=== PATIENT | female | born 1935 | race Caucasian/White ===

== ENCOUNTER → 2017-08-20 | Outpatient (CLI) | payer MEDICARE, OTHER ==
[2016-05-23 14:32] VITALS: BP 97/51
[~2017-08-20] MED LIST: ACET325T9 PO; BIMA2.5D EACHEYE; FAMO-63 PO; HALO0.5T PO; HYDR-2762 PO; LATA2.5D2 EACHEYE; LEVO150T5 PO; LEVO50TA5 PO; LMFO1TAB PO; LORA0.5T96 PO; MAGN400T3 PO; MELA3TAB2 PO; MENT3.5O TP; POTA20TA84 PO; SULF1TAB24 PO; TRAM50TA PO
--- NOTE | 2017-08-21 16:18 | RAD ---
FDG tumor localization scan, PET/CT, 08/20/2017: History: Colon cancer staging Following IV injection of 14.0 mCi of 18 F-FDG, imaging was performed from the skull base through the proximal thighs. The noncontrast CT component was performed for attenuation correction and anatomic localization purposes rather than for primary diagnosis. The patient's blood glucose level at the time of injection was 97 MG/DL. Comparison is made to a study from 01/05/2014. Physiologic activity is present in the neck. Mildly increased activity along the posterior aspect of the right glenohumeral joint is arthritic. There is an 11 mm hypermetabolic nodule in the posterior aspect of the left lower lobe. It demonstrates a maximum SUV of 3.2. Just superior to this level in the left lower lobe there is a 7 mm nodule demonstrating low level FDG uptake. The lack of avid uptake is probably secondary to its small size. These pulmonary nodules were not present on the previous study of 01/05/2014. There is a new 15 mm hypermetabolic nodule in the epicardial fat along the right side of the heart. It demonstrates a maximum SUV of 4.7. There are 2 hypermetabolic liver lesions. The largest of these lies centrally in the left lobe and demonstrates a maximum SUV of 9.3. The smaller lesion lies in the dome of the right lobe of the liver. Both lesions demonstrate some internal calcification which can be seen with mucinous tumors. These lesions were present on the 01/05/2014 study but have increased in size. Normal GI tract and urinary tract activity is present in the abdomen and pelvis. No hypermetabolic abdominal or pelvic adenopathy is seen. Incidental CT findings and the presence of scattered colonic diverticula. There is a small medium density right renal nodule which may be a complicated cyst. There is a moderate-sized hiatal hernia. Moderate multilevel degenerative changes are present in the spine. IMPRESSION: 1. Two new hypermetabolic pulmonary nodules and a right epicardial nodule are compatible with metastatic disease. 2. Enlarging hypermetabolic liver lesions compatible with progressing metastatic disease.
== END | disposition home or self-care (01) ==
LOC: PETSC 10:30
PROVIDERS: ATTEND Internal Medicine Medical Oncology
DX: C78.01 Secondary malignant neoplasm of right lung (principal); K57.30 Diverticulosis of large intestine without perforation or abscess without bleeding; K44.9 Diaphragmatic hernia without obstruction or gangrene; Z85.118 Personal history of other malignant neoplasm of bronchus and lung
CPT/HCPCS: 78815; A9552

== ENCOUNTER 2019-04-20 08:37 | Day surgery (SDC) | payer MEDICARE, OTHER ==
[~2019-04-20] VITALS: Ht 162.6 cm; Wt 51.0 kg
[~2019-04-20 08:37] MED LIST changes: +ACET325T21 PO; +BUPIVAC MPF-EPI 0.5%-1:200000 30 ML VIAL. ONE; +BUPIVACAINE MPF 0.5% 30 ML VIAL. ONE; +BUSP5TAB PO; +CAPE500T PO; +DONE10TA7 PO; +HEPARIN SODIUM 5,000 UNIT in IV NORMAL SALINE 500ML BAG 500 ML IRR ONE; -HYDR-2762 PO; +HYDR-2765 PO; +HYDROmorphone 2 MG/ML VIAL IV PRN; +IV RINGERS,LACTATED 1000ML 1,000 ML IV SCH; +LOPE1LIQ7 PO; +MEMA10TA PO; +MORPHINE SULFATE 2 MG/ML VIAL. IV PRN; +OMEP20TA8 PO; +ONDA4TAB7 PO; +PROCHLORPERAZINE 10 MG/2 ML VIAL. IV PRN; +fentaNYL PF VIAL 100 MCG/2 ML VIAL IV PRN
--- NOTE | 2019-04-20 11:06 | RAD ---
Portable chest, 04/20/2019: HISTORY: Port-A-Cath placement A left Port-A-Cath is in place extending into the superior vena cava. The heart size is normal. There is minimal linear scarring or atelectasis in the left lateral costophrenic angle. No pulmonary consolidation is seen. There is no evidence of pneumothorax or pleural fluid. There is a mild thoracolumbar scoliosis with scattered degenerative changes. There is an old healed right clavicular fracture. IMPRESSION: 1. A left Port-A-Cath extends into the superior vena cava. 2. No significant acute abnormality is detected. Electronically signed by: Robert Marx MD (04/20/2019 11:03 AM) [facility]
[2019-04-20 11:10] VITALS: BP 170/91
--- NOTE | 2019-04-20 11:30 | DISCH ---
DISCHARGE INSTRUCTIONS Condition on Discharge Condition on Discharge: Stable Activity After Discharge Activity Instructions for Disc: Activity as tolerated, Avoid exertion, Other, see below Lifting Instructions after Dis: Do not lift >10 pounds Exercise Instruction after Dis: Progress as tolerated Driving Instructions after Dis: Do not drive Weight Bearing Status after Di: Non weight bearing Diet after Discharge Diet after Discharge: Regular Wound Incision Care Wound/Incision Care: Ice to area for comfort, Do not change dressing Other wound/incision instructi: leave dressing on til chemo Follow-Up Follow up with: Darius 04/28 in the [facility] office HUSSEIN WEINER MD Apr 20, 2019 11:30
--- NOTE | 2019-04-20 11:35 | PDOC ---
BRIEF OPERATIVE NOTE Date: Apr 20, 2019 Pre-Op Diagnosis needs venous access for chemo Post-Op Diagnosis same Procedure Performed placement left subclavian power port Surgeon Darius Anesthesia Type: General Blood Loss 5cc IV Fluid 500cc Specimens Obtained none Findings tip of catheter in the SVC without evidence of a pneumothorax Complications none Operative Note Wk # [id number] HUSSEIN WEINER MD Apr 20, 2019 11:35
--- NOTE | 2019-04-20 11:46 | OP ---
DATE OF SURGERY: 04/20/2019 PREOPERATIVE DIAGNOSIS: Needs venous access for chemotherapy. POSTOPERATIVE DIAGNOSIS: Needs venous access for chemotherapy. PROCEDURE: Placement of left subclavian PowerPort. SURGEON: Hussein Weiner MD. ANESTHESIA: General LMA. ESTIMATED BLOOD LOSS: 5 mL. INTRAVENOUS FLUIDS: 500 mL. DESCRIPTION OF PROCEDURE: The patient brought to the operating suite, given a general LMA and the infraclavicular areas were prepped and draped in usual sterile fashion. With the bed in Trendelenburg, 0.5% plain Marcaine was infiltrated a fingerbreadth below the clavicle at the junction of the medial two-thirds lateral third. A small incision made and a seeker needle used to find the subclavian vein. Guidewire passed under fluoroscopic observation in the superior vena cava and the needle was removed. Table returned to level. Pocket incision infiltrated with local anesthetic, incised and a pocket developed. Catheter laid on the patient's chest and fluoroscopy used to identify appropriate length. The catheter was cut to the appropriate length and tunneled from the insertion site to the pocket site where it was attached to the reservoir. The reservoir was seated in the pocket and the bed placed back in Trendelenburg. Under fluoroscopic observation, the dilator and sheath were passed over the wire. The wire was removed. The dilator was removed and the catheter was threaded through the sheath and the sheath was then removed. Good flow into and out of the catheter at completion of placement. Pocket incision closed with interrupted 3-0 Vicryl in the subcutaneous tissue. Skin incisions closed with subcuticular 4-0 Monocryl. Steri-Strips applied. A final aspiration flush of the port was carried out with heparinized saline. Sterile dressing applied. The patient awakened from her anesthetic. Postop upright chest x-ray showed the tip of the catheter to reside in superior vena cava without evidence of a pneumothorax. The patient was taken to postop area having tolerated the procedure well. HUSSEIN WEINER MD DR: JULIO CESAR/jose JOB#: [id number] / [id number]
== END 2019-04-20 12:00 | disposition home or self-care (01) ==
LOC: SURG 08:37
PROVIDERS: ATTEND Surgery
DX: Z45.2 Encounter for adjustment and management of vascular access device (principal); C18.9 Malignant neoplasm of colon, unspecified; I10 Essential (primary) hypertension; E03.9 Hypothyroidism, unspecified; E78.5 Hyperlipidemia, unspecified; F03.90 Unspecified dementia, unspecified severity, without behavioral disturbance, psychotic disturbance, mood disturbance, and anxiety; Z90.49 Acquired absence of other specified parts of digestive tract; Z98.890 Other specified postprocedural states; Z88.8 Allergy status to other drugs, medicaments and biological substances; Z91.040 Latex allergy status
CPT/HCPCS: 36561; 77001; C1788; J0690; J1644; J3490; J7040; 36556; 71045

== ENCOUNTER → 2019-05-11 | Outpatient (CLI) | payer MEDICARE, OTHER ==
[~2019-05-11] VITALS: Ht 165.1 cm; Wt 50.8 kg
[~2019-05-11] MED LIST changes: -BUPIVAC MPF-EPI 0.5%-1:200000 30 ML VIAL. ONE; -BUPIVACAINE MPF 0.5% 30 ML VIAL. ONE; +GADOTERATE 5 MMOL/10ML VIAL. IVP ONE; +GADOTERATE 5 MMOL/10ML VIAL. ONE; +HEPARIN PF 500 UNIT/5 ML DISP.SYRIN. IV ONE; -HEPARIN SODIUM 5,000 UNIT in IV NORMAL SALINE 500ML BAG 500 ML IRR ONE; -HYDROmorphone 2 MG/ML VIAL IV PRN; +IOHEXOL 240 MG/ML 50ML VIAL. ONE; -IV RINGERS,LACTATED 1000ML 1,000 ML IV SCH; -MORPHINE SULFATE 2 MG/ML VIAL. IV PRN; -PROCHLORPERAZINE 10 MG/2 ML VIAL. IV PRN; -fentaNYL PF VIAL 100 MCG/2 ML VIAL IV PRN
[2019-05-11 13:32] VITALS: BP 144/73
--- NOTE | 2019-05-11 16:32 | RAD ---
Fluoroscopic evaluation, left subclavian Port-A-Cath 05/11/2019 Discussion: Patient is an 83-year-old female with a left subclavian Port-A-Cath that has had poor aspiration was attempted use. Fluoroscopic evaluation requested. The overlying skin was prepped and draped using sterile barrier technique. The port was accessed using standard technique. Fluoroscopic evaluation demonstrates a left subclavian Port-A-Cath to have its tip in the left brachiocephalic vein, directed laterally. The catheter will not aspirate. Contrast was administered through the catheter demonstrating no fracture or abnormal extravasation. No venous stenosis was appreciated on limited venography. Port flushes normally. The port was heparinized the access. Sterile dressings were applied. Fluoroscopy time: 2 minutes Dose area product 5.6 Gycm2 Impression: 1. Port catheter with tip in left brachiocephalic vein directed laterally, likely the reason that it will not aspirate. 2. The port reservoir and catheter are otherwise patent without evidence of fracture or extravasation. No venous stenosis is identified
== END ==
LOC: INTRAD 13:12
PROVIDERS: ATTEND Surgery
DX: T82.898A Other specified complication of vascular prosthetic devices, implants and grafts, initial encounter (principal); Y83.8 Other surgical procedures as the cause of abnormal reaction of the patient, or of later complication, without mention of misadventure at the time of the procedure; Y92.89 Other specified places as the place of occurrence of the external cause
CPT/HCPCS: 36598; A9575

== ENCOUNTER 2019-06-19 17:35 | Inpatient (IN) | payer MEDICARE, OTHER ==
[~2019-06-19] VITALS: Ht 167.6 cm; Wt 51.8 kg
[~2019-06-19 17:35] MED LIST changes: -GADOTERATE 5 MMOL/10ML VIAL. IVP ONE; -GADOTERATE 5 MMOL/10ML VIAL. ONE; -HEPARIN PF 500 UNIT/5 ML DISP.SYRIN. IV ONE; -IOHEXOL 240 MG/ML 50ML VIAL. ONE
[2019-06-19 19:10] VITALS: BP 72/37
--- NOTE | 2019-06-19 21:10 | NUR ---
Patient is a direct admit from [facility] ER. Patient arrived at [facility] per ambulance at 1910. Admitting diagnosis SBO. Cat Scan also showed hiatal hernia, diverticulosis. Patient has a NG tube in place with no output at this time. [facility] ER nurse stated that she received 200cc of brown liquid thru NG. Patient is alert and oriented X4. Patient able to answer questions regarding admission. Dr. Mccoy here to see patient earlier this evening. Patient pulled 1st NG tube that was placed at [facility] out of her nose. NG 16Fr was inserted into left nare with difficulty. Received 400cc brown liquid. Will continue to monitor.
[2019-06-19] MEDS ORDERED: PHENOL ORAL SPRAY 177ML BOTTLE. PO PRN (22:15)
[2019-06-19] MEDS ORDERED: BENZOCAINE/MENTHOL LOZENGE. PO PRN (22:15)
--- NOTE | 2019-06-19 22:41 | RAD ---
Exam: Frontal view of the abdomen INDICATION: NG tube TECHNIQUE: Frontal view of the abdomen Comparisons: None FINDINGS: Enteric tube traverses below the diaphragm distal tip in the left upper quadrant likely within stomach. Multiple air-filled dilated loops of small bowel noted. Visualized lung bases are clear. IMPRESSION: 1. Enteric tube with tip likely in the stomach. 2. Findings a small bowel obstruction. Continued radiographic follow-up recommended. Electronically signed by: Moreno Yin MD (06/19/2019 10:38 PM) [facility]
[2019-06-19 23:00] VITALS: BP 75/39
[2019-06-19] MEDS: POTASSIUM CL 20MEQ-0.45% NACL 1,000 ML IV SCH (23:02)
[2019-06-20] MEDS ORDERED: ASPI-630 PO (01:21)
[2019-06-20] MEDS ORDERED: POTA10TA12 PO (01:21)
[2019-06-20] MEDS ORDERED: TRAM-48 PO (01:21)
[2019-06-20] MEDS ORDERED: IV NORMAL SALINE 250ML 250 ML IV ONE (02:45)
[2019-06-20 03:00] VITALS: BP 92/45
--- NOTE | 2019-06-20 03:15 | NUR ---
Attempted to insert hinojosa catheter. Unsuccessful after several attempts. 2 RN's tried. Catheter kept coiling into cervix. Patient denies having any type of surgery in that region. Will continue to monitor urinary output. will
[2019-06-20 05:57] LABS: CALCIUM 8.2 mg/dL (8.5-10.1); CREATININE 2.9 mg/dL (0.6-1.0); GFR 15.4; POTASSIUM 4.4 mmol/L (3.5-5.1)
[2019-06-20 07:00] VITALS: BP 122/53
--- NOTE | 2019-06-20 07:43 | PDOC2 ---
CONSULT Date of Consult Date of Consult DATE: 06/19/19 TIME: 19:00 Reason for Consult Reason for Consult: small bowel obstruction Referring Physician Referring Physician: [facility] ED Identification/Chief Complaint Chief Complaint nausea, vomiting Source Source: Chart review, Patient History of Present Illness Reason for Visit: Ms Schumacher is a pleasant 84 yo lady I know from port placement for venous access to allow chemotherapy. She has a hx of colon cancer removed in 2009 and has had Rx since. She presented to the [facility] ED with nausea and vomiting. The CT there showed a small bowel obstruction. She was tx to [facility] for further care. Past Medical History Cardiovascular: HTN CENTRAL NERVOUS SYSTEM: Dementia Musculoskeletal: Osteoarthritis Endocrine: Hypothyroidism Past Surgical History Past Surgical History: Colon Resection, Other (port placement) Family History Family History: No Significant Social History No ALCOHOL: none Current Medications Current Medications Current Medications Potassium Chloride/Sodium Chloride 1,000 ml @ 125 mls/hr Q8H IV Last a dministered on 06/19/19at 23:02; Start 06/19/19 at 22:15 Throat Lozenges (Chloraseptic) 1 spray PRN Q2HR PRN PO SORE THROAT; Start 06/19/19 at 22:15 Throat Lozenges (Cepacol Sore Throat Lozenge) 1 juan PRN Q2HRS PRN PO SORE THROAT; Start 06/19/19 at 22:15 Sodium Chloride 250 ml @ 250 mls/hr 1X ONCE IV Last administered on 06/20/19at 03:24; Start 06/20/19 at 02:45; Stop 06/20/19 at 03:45; Status DC Active Scripts Active Reported Aspirin 81 Mg Tab.chew 1 Tab PO DAILY Ultram (Tramadol Hcl) 50 Mg Tablet 50 Mg PO Q4HRS PRN Potassium Chloride 10 Meq Tab.sr.24h 10 Meq PO DAILY Namenda (Memantine Hcl) 10 Mg Tablet 10 Mg PO BID Zofran (Ondansetron Hcl) 4 Mg Tablet 1 Tab PO PRN Q6-8HRS Imodium A-D (Loperamide Hcl) 1 Mg/7.5 Ml Liquid 1 Mg PO PRN PRN Omeprazole 20 Mg Tablet.dr 1 Tab PO DAILY Acetaminophen 325 Mg Tablet 325 Mg PO Q4HRS Donepezil Hcl 10 Mg Tablet 1 Tab PO DAILY Xeloda (Capecitabine) 500 Mg Tablet 2,000 Mg PO Q12HR Buspirone Hcl 5 Mg Tablet 1 Tab PO QID Melatonin 3 Mg Tablet 1 Tab PO QHS Levothyroxine Sodium 50 Mcg Tablet 50 Mcg PO DAILYAC Cerefolin Nac Caplet (Lmfol Ca/Acetyl/Mb12/Algal Oil) 1 Each Tablet 1 Each PO DAILY Xalatan (Latanoprost) 2.5 Ml Drops 1 Drop EACHEYE QHS Magnesium Oxide 400 Mg Tablet 1 Tab PO TID Pepcid (Famotidine) 20 Mg Tablet 20 Mg PO DAILY Ativan (Lorazepam) 0.5 Mg Tablet 0.5 Mg PO Q4HRS PRN Allergies Allergies: Coded Allergies: Iodinated Contrast- Oral and IV Dye (Verified Allergy, Intermediate, 04/20/19) rash iodine (Verified Allergy, Intermediate, Unknown, 04/20/19) latex (Verified Allergy, Intermediate, Unknown, 04/20/19) ROS PSYCHOLOGICAL ROS: YES: Depression Gastrointestinal: Yes Nausea, Yes Vomiting Physical Exam General: Alert, No acute distress HEENT: Atraumatic Lungs: Normal air movement Heart: Regular rate Abdomen: Soft, Other (mildly TTP diffusely without mass) Skin: Other (warm, dry) Vitals VITALS Vital Signs Date Time Temp Pulse Resp B/P (MAP) Pulse Ox O2 Delivery O2 Flow Rate FiO2 06/20/19 03:00 97.9 90 18 92/45 (61) 96 Room Air 97.9 Labs Labs Laboratory Tests Test 06/19/19 21:05 06/20/19 01:30 06/20/19 05:25 Lactic Acid Level 3.6 mmol/L (0.4-2.0) 4.3 mmol/L (0.4-2.0) 2.9 mmol/L (0.4-2.0) Sodium Level 145 mmol/L (136-145) Potassium Level 4.4 mmol/L (3.5-5.1) Chloride Level 108 mmol/L (98-107) Carbon Dioxide Level 22 mmol/L (21-32) Anion Gap 15 (6-14) Blood Urea Nitrogen 54 mg/dL (7-20) Creatinine 2.9 mg/dL (0.6-1.0) Estimated GFR (Cockcroft-Gault) 15.4 Glucose Level 96 mg/dL (70-99) Calcium Level 8.2 mg/dL (8.5-10.1) Laboratory Tests Test 06/19/19 21:05 06/20/19 01:30 06/20/19 05:25 Lactic Acid Level 3.6 mmol/L (0.4-2.0) 4.3 mmol/L (0.4-2.0) 2.9 mmol/L (0.4-2.0) Sodium Level 145 mmol/L (136-145) Potassium Level 4.4 mmol/L (3.5-5.1) Chloride Level 108 mmol/L (98-107) Carbon Dioxide Level 22 mmol/L (21-32) Anion Gap 15 (6-14) Blood Urea Nitrogen 54 mg/dL (7-20) Creatinine 2.9 mg/dL (0.6-1.0) Estimated GFR (Cockcroft-Gault) 15.4 Glucose Level 96 mg/dL (70-99) Calcium Level 8.2 mg/dL (8.5-10.1) Images Images CT from [facility] is reviewed Assessment/Plan Assessment/Plan small bowel obstruction hx of colon cancer dehydration rec: NG tube, IV fluids, serial exams will follow with you Thanks for consult HUSSEIN WEINER MD Jun 20, 2019 07:43
[2019-06-20] MEDS: POTASSIUM CL 20MEQ-0.45% NACL 1,000 ML IV SCH (07:57)
[2019-06-20] MEDS: ONDANSETRON PF 4 MG/2 ML VIAL. IV PRN (08:08)
[2019-06-20] MEDS ORDERED: LORazepam 0.5 MG TABLET PO PRN (08:45)
[2019-06-20] MEDS: LEVOTHYROXINE 50 MCG TABLET PO SCH (08:51)
[2019-06-20] MEDS: busPIRone 5 MG TABLET. PO SCH ×4 (08:51→21:00)
[2019-06-20] MEDS: PANTOPRAZOLE 40 MG TABLET.DR. PO SCH (08:51)
[2019-06-20] MEDS: DONEPEZIL HCL 10 MG TABLET. PO SCH (08:51)
[2019-06-20] MEDS: POTASSIUM CHLORIDE 10 MEQ TABLET.ER. PO SCH (08:51)
--- NOTE | 2019-06-20 08:54 | PDOC1 ---
History and Physical Date of Admission Date of Admission DATE: 06/20/19 TIME: 08:50 Identification/Chief Complaint Chief Complaint abd pain Source Source: Chart review, Patient History of Present Illness History of Present Illness patient has metastatic breast cancer, lives in [place], presented to [facility] last night with acute abd pain, vomiting, Hx SBO, has recurrent on images there, sent here for higher level of care, NG tube this AM has > 1100 mls out, she complains of no pain, but has spit up a little this AM. some nausea, and marked weakness Past Medical History Cardiovascular: HTN CENTRAL NERVOUS SYSTEM: Dementia Musculoskeletal: Osteoarthritis Endocrine: Hypothyroidism Past Surgical History Past Surgical History: Colon Resection, Other (port placement) Family History Family History: No Significant Social History Smoke: No ALCOHOL: none Current Problem List Problem List Problems Medical Problems: (1) Dehydration Status: Acute (2) Small bowel obstruction Status: Acute Current Medications Current Medications Current Medications Potassium Chloride/Sodium Chloride 1,000 ml @ 125 mls/hr Q8H IV Last administered on 06/20/19at 07:57; Start 06/19/19 at 22:15 Throat Lozenges (Chloraseptic) 1 spray PRN Q2HR PRN PO SORE THROAT; Start 06/19/19 at 22:15 Throat Lozenges (Cepacol Sore Throat Lozenge) 1 juan PRN Q2HRS PRN PO SORE THROAT; Start 06/19/19 at 22:15 Sodium Chloride 250 ml @ 250 mls/hr 1X ONCE IV Last administered on 06/20/19at 03:24; Start 06/20/19 at 02:45; Stop 06/20/19 at 03:45; Status DC Ondansetron HCl (Zofran) 4 mg PRN Q6HRS PRN IV NAUSEA/VOMITING Last administered on 06/20/19at 08:09; Start 06/20/19 at 08:00 Buspirone HCl (Buspar) 5 mg QID PO ; Start 06/20/19 at 09:00 Donepezil HCl (Aricept) 10 mg DAILY PO ; Start 06/20/19 at 09:00 Latanoprost (Xalatan) 1 drop QHS OU ; Start 06/20/19 at 21:00 Levothyroxine Sodium (Synthroid) 50 mcg DAILYAC PO ; Start 06/20/19 at 09:00 Lorazepam (Ativan) 0.5 mg PRN Q4HRS PRN PO ANXIETY / AGITATION; Start 06/20/19 at 08:45 Potassium Chloride (Klor-Con) 10 meq DAILY PO ; Start 06/20/19 at 09:00 Non-Formulary Medication (Melatonin ) 1 tab QHS PO ; Start 06/20/19 at 21:00; Status UNV Pantoprazole Sodium (Protonix) 40 mg DAILYAC PO ; Start 06/20/19 at 09:00 Ondansetron HCl (Zofran Odt) 4 mg PRN Q6HRS PRN PO NAUSEA/VOMITING; Start 06/20/19 at 09:00 Active Scripts Active Reported Aspirin 81 Mg Tab.chew 1 Tab PO DAILY Ultram (Tramadol Hcl) 50 Mg Tablet 50 Mg PO Q4HRS PRN Potassium Chloride 10 Meq Tab.sr.24h 10 Meq PO DAILY Namenda (Memantine Hcl) 10 Mg Tablet 10 Mg PO BID Zofran (Ondansetron Hcl) 4 Mg Tablet 1 Tab PO PRN Q6-8HRS Imodium A-D (Loperamide Hcl) 1 Mg/7.5 Ml Liquid 1 Mg PO PRN PRN Omeprazole 20 Mg Tablet.dr 1 Tab PO DAILY Acetaminophen 325 Mg Tablet 325 Mg PO Q4HRS Donepezil Hcl 10 Mg Tablet 1 Tab PO DAILY Xeloda (Capecitabine) 500 Mg Tablet 2,000 Mg PO Q12HR Buspirone Hcl 5 Mg Tablet 1 Tab PO QID Melatonin 3 Mg Tablet 1 Tab PO QHS Levothyroxine Sodium 50 Mcg Tablet 50 Mcg PO DAILYAC Cerefolin Nac Caplet (Lmfol Ca/Acetyl/Mb12/Algal Oil) 1 Each Tablet 1 Each PO DAILY Xalatan (Latanoprost) 2.5 Ml Drops 1 Drop EACHEYE QHS Magnesium Oxide 400 Mg Tablet 1 Tab PO TID Pepcid (Famotidine) 20 Mg Tablet 20 Mg PO DAILY Ativan (Lorazepam) 0.5 Mg Tablet 0.5 Mg PO Q4HRS PRN Allergies Allergies: Coded Allergies: Iodinated Contrast- Oral and IV Dye (Verified Allergy, Intermediate, 04/20/19) rash iodine (Verified Allergy, Intermediate, Unknown, 04/20/19) latex (Verified Allergy, Intermediate, Unknown, 6/12/19) ROS General: YES: Chills, Fatigue PSYCHOLOGICAL ROS: YES: Sleep disturbances; No: Anxiety, Behavioral Disorder, Concentration difficultie, Decreased libido, Depression, Disorientation, Hallucinations, Hostility, Irritablity, Memory difficulties, Mood Swings, Obsessive thoughts, Other Eyes: No Blurry vision, No Decreased vision, No Double vision, No Dry eyes, No Excessive tearing, No Eye Pain, No Itchy Eyes, No Loss of vision, No Photophobia, No Scotomata, No Uses contacts, No Uses glasses, No Other HEENT: No: Heacaches, Visual Changes, Hearing change, Nasal congestion, Nasal discharge, Oral lesions, Sinus pain, Sore Throat, Epistaxis, Sneezing, Snoring, Tinnitus, Vertigo, Vocal changes, Other Respiratory: No: Cough, Hemoptysis, Orthopnea, Pleuritic Pain, Shortness of breath, SOB with excertion, Sputum Changes, Stridor, Tachypnea, Wheezing, Other Gastrointestinal: Yes Nausea, Yes Vomiting, Yes Abdominal Pain Genitourinary: No Dysuria, No Frequency, No Incontinence, No Hematuria, No Retention, No Discharge, No Urgency, No Pain, No Flank Pain, No Other, No , No , No , No , No , No , No Musculoskeletal: Yes Joint Stiffness, Yes Muscular Weakness; No Gait Disturbance, No Joint Pain, No Pain In:, No Swelling In:, No Other Neurological: Yes Gait Disturbance; No Behavorial Changes, No Bowel/Bladder ControlChng, No Confusion, No Dizziness, No Headaches, No Impaired Coord/balance, No Memory Loss, No Numbness/Tingling, No Seizures, No Speech Problems, No Tremors, No Visual Changes, No Weakness, No Other Skin: No Dry Skin, No Eczema, No Hair Changes, No Lumps, No Mole Changes, No Mottling, No Nail Changes, No Pruritus, No Rash, No Skin Lesion Changes, No Other, No Acne Physical Exam General: Alert, Cooperative, mild distress, Other (not oriented 2/4) HEENT: PERRLA Lungs: Clear to auscultation Heart: S1S2, no gallops Abdomen: Soft (tender, mild guarding) Extremities: No cyanosis, Normal pulses Skin: No rashes, No significant lesion Neuro: Normal tone Psych/Mental Status: Mental status NL Vitals Vitals Vital Signs Date Time Temp Pulse Resp B/P (MAP) Pulse Ox O2 Delivery O2 Flow Rate FiO2 06/20/19 08:00 Room Air 06/20/19 07:00 97.8 75 18 122/53 (76) 93 97.8 Labs Labs Laboratory Tests Test 06/19/19 21:05 06/20/19 01:30 06/20/19 05:25 Lactic Acid Level 3.6 mmol/L (0.4-2.0) 4.3 mmol/L (0.4-2.0) 2.9 mmol/L (0.4-2.0) Sodium Level 145 mmol/L (136-145) Potassium Level 4.4 mmol/L (3.5-5.1) Chloride Level 108 mmol/L (98-107) Carbon Dioxide Level 22 mmol/L (21-32) Anion Gap 15 (6-14) Blood Urea Nitrogen 54 mg/dL (7-20) Creatinine 2.9 mg/dL (0.6-1.0) Estimated GFR (Cockcroft-Gault) 15.4 Glucose Level 96 mg/dL (70-99) Calcium Level 8.2 mg/dL (8.5-10.1) Laboratory Tests Test 06/19/19 21:05 06/20/19 01:30 06/20/19 05:25 Lactic Acid Level 3.6 mmol/L (0.4-2.0) 4.3 mmol/L (0.4-2.0) 2.9 mmol/L (0.4-2.0) Sodium Level 145 mmol/L (136-145) Potassium Level 4.4 mmol/L (3.5-5.1) Chloride Level 108 mmol/L (98-107) Carbon Dioxide Level 22 mmol/L (21-32) Anion Gap 15 (6-14) Blood Urea Nitrogen 54 mg/dL (7-20) Creatinine 2.9 mg/dL (0.6-1.0) Estimated GFR (Cockcroft-Gault) 15.4 Glucose Level 96 mg/dL (70-99) Calcium Level 8.2 mg/dL (8.5-10.1) VTE Prophylaxis Ordered VTE Prophylaxis Devices: Yes VTE Pharmacological Prophylaxi: No Assessment/Plan Assessment/Plan acute abd pain small bowel obstruction, lactate elevated from this metastatic breast cancer malnutrition 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
[2019-06-20 09:39] LABS: BASO % 0 % (0-3); EOS % 0 % (0-3); HEMATOCRIT 33.5 % (36.0-47.0); HEMOGLOBIN 11.3 g/dL (12.0-15.5); LYMPH # 1.3 x10^3/uL (1.0-4.8); LYMPH % 17 % (24-48); MEAN CORPUSCULAR HEMOGLOBIN 36 pg (25-35); MEAN CORPUSCULAR HGB CONC 34 g/dL (31-37); MEAN CORPUSCULAR VOLUME 107 fL (79-100); MONO # 1.1 x10^3/uL (0.0-1.1); MONO % 15 % (0-9); NEUT # 5.3 x10^3/uL (1.8-7.7); NEUT % 69 % (31-73); PLATELET COUNT 135 x10^3/uL (140-400); RED BLOOD COUNT 3.12 x10^6/uL (3.50-5.40); RED CELL DISTRIBUTION WIDTH 21.6 % (11.5-14.5); WHITE BLOOD COUNT 7.8 x10^3/uL (4.0-11.0)
[2019-06-20 11:00] VITALS: BP 82/46
[2019-06-20] MEDS: AMINO AC 3%/ELECTROLYTE/GLYCER 1,000 ML IV SCH ×2 (11:01→23:43)
--- NOTE | 2019-06-20 11:13 | PDOC2 ---
CONSULT Date of Consult Date of Consult DATE: 06/20/19 TIME: 11:08 Reason for Consult Reason for Consult: RUFINO Referring Physician Referring Physician: NICOLE Identification/Chief Complaint Chief Complaint WEAKNESS Source Source: Chart review History of Present Illness Reason for Visit: THIS IS AN 84 YR OLD WITH ABD PAIN AND N/V. DX WITH SOB. HX COLON CA FROM 2009 AND S/P CHEMO AND RAD TX. NO CKD HX THAT I CAN FIND. CR OF 2.9. NGT OUTPUT HAS BEEN HIGH. UNABLE TO PROVIDE PROPER HX DUE TO CONFUSION AND DEMENTIA. NO NEPHROTOXINS NOTED Past Medical History Cardiovascular: HTN CENTRAL NERVOUS SYSTEM: Dementia Musculoskeletal: Osteoarthritis Infectious disease: No pertinent hx ENT: No pertinent hx Renal/: No pertinent hx Endocrine: No pertinent hx, Hypothyroidism Past Surgical History Past Surgical History: Colon Resection, Other (port placement) Family History Family History: No Significant Social History No ALCOHOL: none Current Problem List Problem List Problems Medical Problems: (1) Dehydration Status: Acute (2) Small bowel obstruction Status: Acute Current Medications Current Medications Current Medications Potassium Chloride/Sodium Chloride 1,000 ml @ 125 mls/hr Q8H IV Last administered on 06/20/19at 07:57; Start 06/19/19 at 22:15; Stop 06/20/19 at 08:50; Status DC Throat Lozenges (Chloraseptic) 1 spray PRN Q2HR PRN PO SORE THROAT; Start 06/19/19 at 22:15 Throat Lozenges (Cepacol Sore Throat Lozenge) 1 juan PRN Q2HRS PRN PO SORE THROAT; Start 06/19/19 at 22:15 Sodium Chloride 250 ml @ 250 mls/hr 1X ONCE IV Last administered on 06/20/19at 03:24; Start 06/20/19 at 02:45; Stop 06/20/19 at 03:45; Status DC Ondansetron HCl (Zofran) 4 mg PRN Q6HRS PRN IV NAUSEA/VOMITING Last administered on 06/20/19at 08:09; Start 06/20/19 at 08:00 Buspirone HCl (Buspar) 5 mg QID PO ; Start 06/20/19 at 09:00 Donepezil HCl (Aricept) 10 mg DAILY PO ; Start 06/20/19 at 09:00 Latanoprost (Xalatan) 1 drop QHS OU ; Start 06/20/19 at 21:00 Levothyroxine Sodium (Synthroid) 50 mcg DAILYAC PO ; Start 06/20/19 at 09:00 Lorazepam (Ativan) 0.5 mg PRN Q4HRS PRN PO ANXIETY / AGITATION; Start 06/20/19 at 08:45 Potassium Chloride (Klor-Con) 10 meq DAILY PO ; Start 06/20/19 at 09:00 Non-Formulary Medication (Melatonin ) 1 tab QHS PO ; Start 06/20/19 at 21:00; Status UNV Pantoprazole Sodium (Protonix) 40 mg DAILYAC PO ; Start 06/20/19 at 09:00 Ondansetron HCl (Zofran Odt) 4 mg PRN Q6HRS PRN PO NAUSEA/VOMITING; Start 06/20/19 at 09:00 Amino Acids/ Glycerin/ Electrolytes 1,000 ml @ 80 mls/hr [id number] IV Last administered on 06/20/19at 11:01; Start 06/20/19 at 09:00 Active Scripts Active Reported Aspirin 81 Mg Tab.chew 1 Tab PO DAILY Ultram (Tramadol Hcl) 50 Mg Tablet 50 Mg PO Q4HRS PRN Potassium Chloride 10 Meq Tab.sr.24h 10 Meq PO DAILY Namenda (Memantine Hcl) 10 Mg Tablet 10 Mg PO BID Zofran (Ondansetron Hcl) 4 Mg Tablet 1 Tab PO PRN Q6-8HRS Imodium A-D (Loperamide Hcl) 1 Mg/7.5 Ml Liquid 1 Mg PO PRN PRN Omeprazole 20 Mg Tablet.dr 1 Tab PO DAILY Acetaminophen 325 Mg Tablet 325 Mg PO Q4HRS Donepezil Hcl 10 Mg Tablet 1 Tab PO DAILY Xeloda (Capecitabine) 500 Mg Tablet 2,000 Mg PO Q12HR Buspirone Hcl 5 Mg Tablet 1 Tab PO QID Melatonin 3 Mg Tablet 1 Tab PO QHS Levothyroxine Sodium 50 Mcg Tablet 50 Mcg PO DAILYAC Cerefolin Nac Caplet (Lmfol Ca/Acetyl/Mb12/Algal Oil) 1 Each Tablet 1 Each PO DAILY Xalatan (Latanoprost) 2.5 Ml Drops 1 Drop EACHEYE QHS Magnesium Oxide 400 Mg Tablet 1 Tab PO TID Pepcid (Famotidine) 20 Mg Tablet 20 Mg PO DAILY Ativan (Lorazepam) 0.5 Mg Tablet 0.5 Mg PO Q4HRS PRN Allergies Allergies: Coded Allergies: Iodinated Contrast- Oral and IV Dye (Verified Allergy, Intermediate, 04/20/19) rash iodine (Verified Allergy, Intermediate, Unknown, 04/20/19) latex (Verified Allergy, Intermediate, Unknown, 04/20/19) ROS Review of System UNABLE TO OBTAIN Physical Exam General: Cooperative HEENT: Atraumatic, PERRLA, EOMI Lungs: Normal air movement Heart: Regular rate Abdomen: Soft, Other (HYPOACTIVE WITH MILD DISTENTION) Extremities: No clubbing, No cyanosis Skin: No breakdown Neuro: Normal speech Psych/Mental Status: Mood NL MUSCULOSKELETAL: No joint tenderness, No deformity, No swelling Vitals VITALS Vital Signs Date Time Temp Pulse Resp B/P (MAP) Pulse Ox O2 Delivery O2 Flow Rate FiO2 06/20/19 08:00 Room Air 06/20/19 07:00 97.8 75 18 122/53 (76) 93 97.8 Labs Labs Laboratory Tests Test 06/19/19 21:05 06/20/19 01:30 06/20/19 05:25 06/20/19 09:15 Lactic Acid Level 3.6 mmol/L (0.4-2.0) 4.3 mmol/L (0.4-2.0) 2.9 mmol/L (0.4-2.0) Sodium Level 145 mmol/L (136-145) Potassium Level 4.4 mmol/L (3.5-5.1) Chloride Level 108 mmol/L (98-107) Carbon Dioxide Level 22 mmol/L (21-32) Anion Gap 15 (6-14) Blood Urea Nitrogen 54 mg/dL (7-20) Creatinine 2.9 mg/dL (0.6-1.0) Estimated GFR (Cockcroft-Gault) 15.4 Glucose Level 96 mg/dL (70-99) Calcium Level 8.2 mg/dL (8.5-10.1) White Blood Count 7.8 x10^3/uL (4.0-11.0) Red Blood Count 3.12 x10^6/uL (3.50-5.40) Hemoglobin 11.3 g/dL (12.0-15.5) Hematocrit 33.5 % (36.0-47.0) Mean Corpuscular Volume 107 fL (79-100) Mean Corpuscular Hemoglobin 36 pg (25-35) Mean Corpuscular Hemoglobin Concent 34 g/dL (31-37) Red Cell Distribution Width 21.6 % (11.5-14.5) Platelet Count 135 x10^3/uL (140-400) Neutrophils (%) (Auto) 69 % (31-73) Lymphocytes (%) (Auto) 17 % (24-48) Monocytes (%) (Auto) 15 % (0-9) Eosinophils (%) (Auto) 0 % (0-3) Basophils (%) (Auto) 0 % (0-3) Neutrophils # (Auto) 5.3 x10^3/uL (1.8-7.7) Lymphocytes # (Auto) 1.3 x10^3/uL (1.0-4.8) Monocytes # (Auto) 1.1 x10^3/uL (0.0-1.1) Eosinophils # (Auto) 0.0 x10^3/uL (0.0-0.7) Basophils # (Auto) 0.0 x10^3/uL (0.0-0.2) Laboratory Tests Test 06/19/19 21:05 06/20/19 01:30 06/20/19 05:25 06/20/19 09:15 Lactic Acid Level 3.6 mmol/L (0.4-2.0) 4.3 mmol/L (0.4-2.0) 2.9 mmol/L (0.4-2.0) Sodium Level 145 mmol/L (136-145) Potassium Level 4.4 mmol/L (3.5-5.1) Chloride Level 108 mmol/L (98-107) Carbon Dioxide Level 22 mmol/L (21-32) Anion Gap 15 (6-14) Blood Urea Nitrogen 54 mg/dL (7-20) Creatinine 2.9 mg/dL (0.6-1.0) Estimated GFR (Cockcroft-Gault) 15.4 Glucose Level 96 mg/dL (70-99) Calcium Level 8.2 mg/dL (8.5-10.1) White Blood Count 7.8 x10^3/uL (4.0-11.0) Red Blood Count 3.12 x10^6/uL (3.50-5.40) Hemoglobin 11.3 g/dL (12.0-15.5) Hematocrit 33.5 % (36.0-47.0) Mean Corpuscular Volume 107 fL (79-100) Mean Corpuscular Hemoglobin 36 pg (25-35) Mean Corpuscular Hemoglobin Concent 34 g/dL (31-37) Red Cell Distribution Width 21.6 % (11.5-14.5) Platelet Count 135 x10^3/uL (140-400) Neutrophils (%) (Auto) 69 % (31-73) Lymphocytes (%) (Auto) 17 % (24-48) Monocytes (%) (Auto) 15 % (0-9) Eosinophils (%) (Auto) 0 % (0-3) Basophils (%) (Auto) 0 % (0-3) Neutrophils # (Auto) 5.3 x10^3/uL (1.8-7.7) Lymphocytes # (Auto) 1.3 x10^3/uL (1.0-4.8) Monocytes # (Auto) 1.1 x10^3/uL (0.0-1.1) Eosinophils # (Auto) 0.0 x10^3/uL (0.0-0.7) Basophils # (Auto) 0.0 x10^3/uL (0.0-0.2) Assessment/Plan Assessment/Plan IMP DEHYDRATION RUFINO DUE TO ABOVE ENCEPHALOPATHY DEMENTIA SBO PLAN PPN IVF'S SURGERY FOLLOWING CHECK UA WILL FOLLOW DANIEL AUSTIN MD Jun 20, 2019 11:13
--- NOTE | 2019-06-20 12:14 | PDOC ---
SURGICAL PROGRESS NOTE Subjective no new complaints other than "they won't let me eat" Vital Signs Vital Signs Date Time Temp Pulse Resp B/P (MAP) Pulse Ox O2 Delivery O2 Flow Rate FiO2 06/20/19 11:00 98.0 100 18 82/46 (58) 96 Room Air 98.0 I&O Intake and Output 06/20/19 06:59 Intake Total 1850 ml Output Total 850 ml Balance 1000 ml Intake Oral 0 ml IV Total 925 ml Other 925 ml Output Urine Total 850 ml # Voids 2 PATIENT HAS A ARDON: No General: Alert, No acute distress HEENT: Other (NG in place with bilious return) Abdomen: Soft Labs Laboratory Tests Test 06/19/19 21:05 06/20/19 01:30 06/20/19 05:25 06/20/19 09:15 Lactic Acid Level 3.6 mmol/L (0.4-2.0) 4.3 mmol/L (0.4-2.0) 2.9 mmol/L (0.4-2.0) Sodium Level 145 mmol/L (136-145) Potassium Level 4.4 mmol/L (3.5-5.1) Chloride Level 108 mmol/L (98-107) Carbon Dioxide Level 22 mmol/L (21-32) Anion Gap 15 (6-14) Blood Urea Nitrogen 54 mg/dL (7-20) Creatinine 2.9 mg/dL (0.6-1.0) Estimated GFR (Cockcroft-Gault) 15.4 Glucose Level 96 mg/dL (70-99) Calcium Level 8.2 mg/dL (8.5-10.1) White Blood Count 7.8 x10^3/uL (4.0-11.0) Red Blood Count 3.12 x10^6/uL (3.50-5.40) Hemoglobin 11.3 g/dL (12.0-15.5) Hematocrit 33.5 % (36.0-47.0) Mean Corpuscular Volume 107 fL (79-100) Mean Corpuscular Hemoglobin 36 pg (25-35) Mean Corpuscular Hemoglobin Concent 34 g/dL (31-37) Red Cell Distribution Width 21.6 % (11.5-14.5) Platelet Count 135 x10^3/uL (140-400) Neutrophils (%) (Auto) 69 % (31-73) Lymphocytes (%) (Auto) 17 % (24-48) Monocytes (%) (Auto) 15 % (0-9) Eosinophils (%) (Auto) 0 % (0-3) Basophils (%) (Auto) 0 % (0-3) Neutrophils # (Auto) 5.3 x10^3/uL (1.8-7.7) Lymphocytes # (Auto) 1.3 x10^3/uL (1.0-4.8) Monocytes # (Auto) 1.1 x10^3/uL (0.0-1.1) Eosinophils # (Auto) 0.0 x10^3/uL (0.0-0.7) Basophils # (Auto) 0.0 x10^3/uL (0.0-0.2) Laboratory Tests Test 06/19/19 21:05 06/20/19 01:30 06/20/19 05:25 06/20/19 09:15 Lactic Acid Level 3.6 mmol/L (0.4-2.0) 4.3 mmol/L (0.4-2.0) 2.9 mmol/L (0.4-2.0) Sodium Level 145 mmol/L (136-145) Potassium Level 4.4 mmol/L (3.5-5.1) Chloride Level 108 mmol/L (98-107) Carbon Dioxide Level 22 mmol/L (21-32) Anion Gap 15 (6-14) Blood Urea Nitrogen 54 mg/dL (7-20) Creatinine 2.9 mg/dL (0.6-1.0) Estimated GFR (Cockcroft-Gault) 15.4 Glucose Level 96 mg/dL (70-99) Calcium Level 8.2 mg/dL (8.5-10.1) White Blood Count 7.8 x10^3/uL (4.0-11.0) Red Blood Count 3.12 x10^6/uL (3.50-5.40) Hemoglobin 11.3 g/dL (12.0-15.5) Hematocrit 33.5 % (36.0-47.0) Mean Corpuscular Volume 107 fL (79-100) Mean Corpuscular Hemoglobin 36 pg (25-35) Mean Corpuscular Hemoglobin Concent 34 g/dL (31-37) Red Cell Distribution Width 21.6 % (11.5-14.5) Platelet Count 135 x10^3/uL (140-400) Neutrophils (%) (Auto) 69 % (31-73) Lymphocytes (%) (Auto) 17 % (24-48) Monocytes (%) (Auto) 15 % (0-9) Eosinophils (%) (Auto) 0 % (0-3) Basophils (%) (Auto) 0 % (0-3) Neutrophils # (Auto) 5.3 x10^3/uL (1.8-7.7) Lymphocytes # (Auto) 1.3 x10^3/uL (1.0-4.8) Monocytes # (Auto) 1.1 x10^3/uL (0.0-1.1) Eosinophils # (Auto) 0.0 x10^3/uL (0.0-0.7) Basophils # (Auto) 0.0 x10^3/uL (0.0-0.2) lactate, Cr noted Problem List Problems Medical Problems: (1) Dehydration Status: Acute (2) Small bowel obstruction Status: Acute Assessment/Plan SBO continue gut rest, NG, IV fluids HUSSEIN WEINER MD Jun 20, 2019 12:14
[2019-06-20 12:34] LABS: % BANDS 49 % (0-9); % LYMPHS 27 % (24-48); % MONOS 7 % (0-10); % MYELOS 1 % (0-0); % SEGS 16 % (35-66); PLT ESTIMATE ADEQUATE (ADEQUATE)
[2019-06-20] MEDS ORDERED: IV NORMAL SALINE 1000ML BAG 1,000 ML IV ONE (13:30)
--- NOTE | 2019-06-20 13:48 | NUR ---
SS following for discharge planning. SS received notification that pt was from [facility]. SS contacted [facility], ; fax [phone], and verified that pt was a LTC resident from there facility and was able to return when medically stable for transfer. Pt's RN notified.
[2019-06-20 14:55] LABS: BILIRUBIN,URINE SMALL (NEG); CLARITY,URINE CLOUDY; COLOR,URINE AMBER; NITRITE,URINE NEGATIVE (NEG); PROTEIN,URINE 30 mg/dL (NEG-TRACE); UROBILINOGEN,URINE 0.2 mg/dL (0.2 mg/dL)
[2019-06-20 15:00] VITALS: BP 120/48
[2019-06-20 15:39] LABS: BACTERIA,URINE FEW /HPF (0-FEW); RBC,URINE RARE /HPF (0-2); SQUAMOUS EPITHELIAL CELL,UR MOD /LPF
--- NOTE | 2019-06-20 17:42 | NUR ---
physician ordered 1 liter bolus for lactic acid of 7.3 Addendum: 06/20/19 at 1743 by GIANNA THORNTON RN RN 7.4
[2019-06-20 19:30] VITALS: BP 105/57
[2019-06-20] MEDS: LATANOPROST 0.005% OPHTH SOLUTION 2.5ML BOTTLE. OU SCH (21:00)
[2019-06-20] MEDS ORDERED: NON FORMULARY ITEM (Melatonin 1 TAB) PO SCH (21:00)
[2019-06-20 23:45] VITALS: BP 105/58
[2019-06-21 03:58] VITALS: BP 104/61
[2019-06-21 04:09] LABS: BASO % 1 % (0-3); EOS # 0.1 x10^3/uL (0.0-0.7); EOS % 1 % (0-3); HEMATOCRIT 29.5 % (36.0-47.0); HEMOGLOBIN 10.2 g/dL (12.0-15.5); LYMPH # 1.1 x10^3/uL (1.0-4.8); LYMPH % 20 % (24-48); MEAN CORPUSCULAR HEMOGLOBIN 36 pg (25-35); MEAN CORPUSCULAR HGB CONC 35 g/dL (31-37); MEAN CORPUSCULAR VOLUME 105 fL (79-100); MONO # 0.5 x10^3/uL (0.0-1.1); MONO % 9 % (0-9); NEUT % 70 % (31-73); PLATELET COUNT 140 x10^3/uL (140-400); RED BLOOD COUNT 2.81 x10^6/uL (3.50-5.40); RED CELL DISTRIBUTION WIDTH 20.7 % (11.5-14.5); WHITE BLOOD COUNT 5.7 x10^3/uL (4.0-11.0)
[2019-06-21 04:34] LABS: ALBUMIN 2.7 g/dL (3.4-5.0); ALBUMIN/GLOBULIN RATIO 0.7 (1.0-1.7); CALCIUM 8.9 mg/dL (8.5-10.1); CREATININE 2.6 mg/dL (0.6-1.0); GFR 17.5; MAGNESIUM 3.5 mg/dL (1.8-2.4); POTASSIUM 4.2 mmol/L (3.5-5.1); TOTAL BILIRUBIN 0.7 mg/dL (0.2-1.0); TOTAL PROTEIN 6.8 g/dL (6.4-8.2)
[2019-06-21] MEDS: busPIRone 5 MG TABLET. PO SCH ×4 (07:27→21:00)
[2019-06-21] MEDS: PANTOPRAZOLE 40 MG TABLET.DR. PO SCH (07:27)
[2019-06-21] MEDS: LEVOTHYROXINE 50 MCG TABLET PO SCH (07:27)
[2019-06-21] MEDS: DONEPEZIL HCL 10 MG TABLET. PO SCH (07:27)
[2019-06-21] MEDS: POTASSIUM CHLORIDE 10 MEQ TABLET.ER. PO SCH (07:27)
[2019-06-21] MEDS: AMINO AC 3%/ELECTROLYTE/GLYCER 1,000 ML IV SCH (07:42)
[2019-06-21] MEDS: ONDANSETRON PF 4 MG/2 ML VIAL. IV PRN (07:42)
[2019-06-21 11:00] VITALS: BP 103/62
--- NOTE | 2019-06-21 12:45 | PDOC ---
SURGICAL PROGRESS NOTE Subjective sleeping in the bedside chair I did not wake her Vital Signs Vital Signs Date Time Temp Pulse Resp B/P (MAP) Pulse Ox O2 Delivery O2 Flow Rate FiO2 06/21/19 11:00 98.1 94 16 103/62 (76) 93 Room Air 98.1 I&O Intake and Output 06/21/19 07:00 Intake Total 1655 ml Output Total 2350 ml Balance -695 ml Intake Oral 0 ml IV Total 1655 ml Output Urine Total 300 ml Gastric Drainage Total 2000 ml Emesis 50 ml # Voids 3 PATIENT HAS A ARDON: No Lungs: Normal air movement Labs Laboratory Tests Test 06/19/19 21:05 06/20/19 01:30 06/20/19 05:25 06/20/19 09:15 Lactic Acid Level 3.6 mmol/L (0.4-2.0) 4.3 mmol/L (0.4-2.0) 2.9 mmol/L (0.4-2.0) Sodium Level 145 mmol/L (136-145) Potassium Level 4.4 mmol/L (3.5-5.1) Chloride Level 108 mmol/L (98-107) Carbon Dioxide Level 22 mmol/L (21-32) Anion Gap 15 (6-14) Blood Urea Nitrogen 54 mg/dL (7-20) Creatinine 2.9 mg/dL (0.6-1.0) Estimated GFR (Cockcroft-Gault) 15.4 Glucose Level 96 mg/dL (70-99) Calcium Level 8.2 mg/dL (8.5-10.1) White Blood Count 7.8 x10^3/uL (4.0-11.0) Red Blood Count 3.12 x10^6/uL (3.50-5.40) Hemoglobin 11.3 g/dL (12.0-15.5) Hematocrit 33.5 % (36.0-47.0) Mean Corpuscular Volume 107 fL (79-100) Mean Corpuscular Hemoglobin 36 pg (25-35) Mean Corpuscular Hemoglobin Concent 34 g/dL (31-37) Red Cell Distribution Width 21.6 % (11.5-14.5) Platelet Count 135 x10^3/uL (140-400) Neutrophils (%) (Auto) 69 % (31-73) Lymphocytes (%) (Auto) 17 % (24-48) Monocytes (%) (Auto) 15 % (0-9) Eosinophils (%) (Auto) 0 % (0-3) Basophils (%) (Auto) 0 % (0-3) Neutrophils # (Auto) 5.3 x10^3/uL (1.8-7.7) Lymphocytes # (Auto) 1.3 x10^3/uL (1.0-4.8) Monocytes # (Auto) 1.1 x10^3/uL (0.0-1.1) Eosinophils # (Auto) 0.0 x10^3/uL (0.0-0.7) Basophils # (Auto) 0.0 x10^3/uL (0.0-0.2) Segmented Neutrophils % 16 % (35-66) Band Neutrophils % 49 % (0-9) Lymphocytes % 27 % (24-48) Monocytes % 7 % (0-10) Myelocytes % 1 % (0-0) Platelet Estimate Adequate (ADEQUATE) Test 06/20/19 11:00 06/20/19 14:45 06/20/19 17:00 06/21/19 03:50 Lactic Acid Level 7.4 mmol/L (0.4-2.0) 4.3 mmol/L (0.4-2.0) Urine Collection Type Unknown Urine Color Elissa Urine Clarity Cloudy Urine pH 5.0 Urine Specific [place] 1.020 Urine Protein 30 mg/dL (NEG-TRACE) Urine Glucose (UA) Negative mg/dL (NEG) Urine Ketones (Stick) Negative mg/dL (NEG) Urine Blood Negative (NEG) Urine Nitrite Negative (NEG) Urine Bilirubin Small (NEG) Urine Urobilinogen Dipstick 0.2 mg/dL (0.2 mg/dL) Urine Leukocyte Esterase Trace (NEG) Urine RBC Rare /HPF (0-2) Urine WBC 11-20 /HPF (0-4) Urine Squamous Epithelial Cells Mod /LPF Urine Bacteria Few /HPF (0-FEW) White Blood Count 5.7 x10^3/uL (4.0-11.0) Red Blood Count 2.81 x10^6/uL (3.50-5.40) Hemoglobin 10.2 g/dL (12.0-15.5) Hematocrit 29.5 % (36.0-47.0) Mean Corpuscular Volume 105 fL (79-100) Mean Corpuscular Hemoglobin 36 pg (25-35) Mean Corpuscular Hemoglobin Concent 35 g/dL (31-37) Red Cell Distribution Width 20.7 % (11.5-14.5) Platelet Count 140 x10^3/uL (140-400) Neutrophils (%) (Auto) 70 % (31-73) Lymphocytes (%) (Auto) 20 % (24-48) Monocytes (%) (Auto) 9 % (0-9) Eosinophils (%) (Auto) 1 % (0-3) Basophils (%) (Auto) 1 % (0-3) Neutrophils # (Auto) 4.0 x10^3/uL (1.8-7.7) Lymphocytes # (Auto) 1.1 x10^3/uL (1.0-4.8) Monocytes # (Auto) 0.5 x10^3/uL (0.0-1.1) Eosinophils # (Auto) 0.1 x10^3/uL (0.0-0.7) Basophils # (Auto) 0.0 x10^3/uL (0.0-0.2) Sodium Level 141 mmol/L (136-145) Potassium Level 4.2 mmol/L (3.5-5.1) Chloride Level 105 mmol/L (98-107) Carbon Dioxide Level 25 mmol/L (21-32) Anion Gap 11 (6-14) Blood Urea Nitrogen 66 mg/dL (7-20) Creatinine 2.6 mg/dL (0.6-1.0) Estimated GFR (Cockcroft-Gault) 17.5 BUN/Creatinine Ratio 25 (6-20) Glucose Level 89 mg/dL (70-99) Calcium Level 8.9 mg/dL (8.5-10.1) Phosphorus Level 3.0 mg/dL (2.6-4.7) Magnesium Level 3.5 mg/dL (1.8-2.4) Total Bilirubin 0.7 mg/dL (0.2-1.0) Aspartate Amino Transf (AST/SGOT) 46 U/L (15-37) Alanine Aminotransferase (ALT/SGPT) 48 U/L (14-59) Alkaline Phosphatase 154 U/L (46-116) Total Protein 6.8 g/dL (6.4-8.2) Albumin 2.7 g/dL (3.4-5.0) Albumin/Globulin Ratio 0.7 (1.0-1.7) Laboratory Tests Test 06/20/19 14:45 06/20/19 17:00 06/21/19 03:50 Urine Collection Type Unknown Urine Color Elissa Urine Clarity Cloudy Urine pH 5.0 Urine Specific [place] 1.020 Urine Protein 30 mg/dL (NEG-TRACE) Urine Glucose (UA) Negative mg/dL (NEG) Urine Ketones (Stick) Negative mg/dL (NEG) Urine Blood Negative (NEG) Urine Nitrite Negative (NEG) Urine Bilirubin Small (NEG) Urine Urobilinogen Dipstick 0.2 mg/dL (0.2 mg/dL) Urine Leukocyte Esterase Trace (NEG) Urine RBC Rare /HPF (0-2) Urine WBC 11-20 /HPF (0-4) Urine Squamous Epithelial Cells Mod /LPF Urine Bacteria Few /HPF (0-FEW) Lactic Acid Level 4.3 mmol/L (0.4-2.0) White Blood Count 5.7 x10^3/uL (4.0-11.0) Red Blood Count 2.81 x10^6/uL (3.50-5.40) Hemoglobin 10.2 g/dL (12.0-15.5) Hematocrit 29.5 % (36.0-47.0) Mean Corpuscular Volume 105 fL (79-100) Mean Corpuscular Hemoglobin 36 pg (25-35) Mean Corpuscular Hemoglobin Concent 35 g/dL (31-37) Red Cell Distribution Width 20.7 % (11.5-14.5) Platelet Count 140 x10^3/uL (140-400) Neutrophils (%) (Auto) 70 % (31-73) Lymphocytes (%) (Auto) 20 % (24-48) Monocytes (%) (Auto) 9 % (0-9) Eosinophils (%) (Auto) 1 % (0-3) Basophils (%) (Auto) 1 % (0-3) Neutrophils # (Auto) 4.0 x10^3/uL (1.8-7.7) Lymphocytes # (Auto) 1.1 x10^3/uL (1.0-4.8) Monocytes # (Auto) 0.5 x10^3/uL (0.0-1.1) Eosinophils # (Auto) 0.1 x10^3/uL (0.0-0.7) Basophils # (Auto) 0.0 x10^3/uL (0.0-0.2) Sodium Level 141 mmol/L (136-145) Potassium Level 4.2 mmol/L (3.5-5.1) Chloride Level 105 mmol/L (98-107) Carbon Dioxide Level 25 mmol/L (21-32) Anion Gap 11 (6-14) Blood Urea Nitrogen 66 mg/dL (7-20) Creatinine 2.6 mg/dL (0.6-1.0) Estimated GFR (Cockcroft-Gault) 17.5 BUN/Creatinine Ratio 25 (6-20) Glucose Level 89 mg/dL (70-99) Calcium Level 8.9 mg/dL (8.5-10.1) Phosphorus Level 3.0 mg/dL (2.6-4.7) Magnesium Level 3.5 mg/dL (1.8-2.4) Total Bilirubin 0.7 mg/dL (0.2-1.0) Aspartate Amino Transf (AST/SGOT) 46 U/L (15-37) Alanine Aminotransferase (ALT/SGPT) 48 U/L (14-59) Alkaline Phosphatase 154 U/L (46-116) Total Protein 6.8 g/dL (6.4-8.2) Albumin 2.7 g/dL (3.4-5.0) Albumin/Globulin Ratio 0.7 (1.0-1.7) Problem List Problems Medical Problems: (1) RUFINO (acute kidney injury) Status: Acute (2) Dehydration Status: Acute (3) Encephalopathy Status: Acute (4) Small bowel obstruction Status: Acute Assessment/Plan SBO hx of iodinated contrast reaction acute on chronic kidney injury d/w Ms [place]'s nephew/caregiver will get SBFT tomorrow after pretreatment recommended by radiology spoke with the radiologist continue NG appreciate Dr Almazan's input HUSSEIN WEINER MD Jun 21, 2019 12:45
[2019-06-21 15:00] VITALS: BP 86/43
--- NOTE | 2019-06-21 15:28 | NUR ---
paged dr hudson at this time for pt blood pressure being 86/43. orders received. will continue to monitor.
[2019-06-21] MEDS ORDERED: IV NORMAL SALINE 500ML BAG 500 ML IV ONE (15:30)
--- NOTE | 2019-06-21 15:39 | RAD ---
Supine and upright views of the abdomen Clinical indications: Follow-up of small bowel obstruction COMPARISON: June 19, 2019. FINDINGS: NG tube tip is seen within the fundus of the stomach. There is severe dilatation of central small bowel loops with very little air noted within the colon consistent with a high-grade small bowel obstruction which has not improved from the prior study. Differential air-fluid levels are seen. No free intraperitoneal air is seen. IMPRESSION: Unchanged high-grade small bowel obstruction. Electronically signed by: Suleman Marie MD (06/21/2019 3:36 PM) [place] [id number]
--- NOTE | 2019-06-21 15:58 | PDOC ---
Renal-Progress Notes Subjective Notes Notes NOTHING NEW History of Present Illness Hx of present illness STABLE Vitals Vitals Vital Signs Date Time Temp Pulse Resp B/P (MAP) Pulse Ox O2 Delivery O2 Flow Rate FiO2 06/21/19 11:00 98.1 94 16 103/62 (76) 93 Room Air 98.1 Weight Weight [ ] I.O. Intake and Output Intake and Output 06/21/19 07:00 Intake Total 1655 ml Output Total 2350 ml Balance -695 ml Intake Oral 0 ml IV Total 1655 ml Output Urine Total 300 ml Gastric Drainage Total 2000 ml Emesis 50 ml # Voids 3 Labs Labs Laboratory Tests Test 06/20/19 17:00 06/21/19 03:50 Lactic Acid Level 4.3 mmol/L (0.4-2.0) White Blood Count 5.7 x10^3/uL (4.0-11.0) Red Blood Count 2.81 x10^6/uL (3.50-5.40) Hemoglobin 10.2 g/dL (12.0-15.5) Hematocrit 29.5 % (36.0-47.0) Mean Corpuscular Volume 105 fL (79-100) Mean Corpuscular Hemoglobin 36 pg (25-35) Mean Corpuscular Hemoglobin Concent 35 g/dL (31-37) Red Cell Distribution Width 20.7 % (11.5-14.5) Platelet Count 140 x10^3/uL (140-400) Neutrophils (%) (Auto) 70 % (31-73) Lymphocytes (%) (Auto) 20 % (24-48) Monocytes (%) (Auto) 9 % (0-9) Eosinophils (%) (Auto) 1 % (0-3) Basophils (%) (Auto) 1 % (0-3) Neutrophils # (Auto) 4.0 x10^3/uL (1.8-7.7) Lymphocytes # (Auto) 1.1 x10^3/uL (1.0-4.8) Monocytes # (Auto) 0.5 x10^3/uL (0.0-1.1) Eosinophils # (Auto) 0.1 x10^3/uL (0.0-0.7) Basophils # (Auto) 0.0 x10^3/uL (0.0-0.2) Sodium Level 141 mmol/L (136-145) Potassium Level 4.2 mmol/L (3.5-5.1) Chloride Level 105 mmol/L (98-107) Carbon Dioxide Level 25 mmol/L (21-32) Anion Gap 11 (6-14) Blood Urea Nitrogen 66 mg/dL (7-20) Creatinine 2.6 mg/dL (0.6-1.0) Estimated GFR (Cockcroft-Gault) 17.5 BUN/Creatinine Ratio 25 (6-20) Glucose Level 89 mg/dL (70-99) Calcium Level 8.9 mg/dL (8.5-10.1) Phosphorus Level 3.0 mg/dL (2.6-4.7) Magnesium Level 3.5 mg/dL (1.8-2.4) Total Bilirubin 0.7 mg/dL (0.2-1.0) Aspartate Amino Transf (AST/SGOT) 46 U/L (15-37) Alanine Aminotransferase (ALT/SGPT) 48 U/L (14-59) Alkaline Phosphatase 154 U/L (46-116) Total Protein 6.8 g/dL (6.4-8.2) Albumin 2.7 g/dL (3.4-5.0) Albumin/Globulin Ratio 0.7 (1.0-1.7) Physical Exam Musculoskeletal: Osteoarthritis Assessment Assessment IMP DEHYDRATION RUFINO DUE TO ABOVE -BETTER ENCEPHALOPATHY DEMENTIA SBO UTI PLAN PPN IVF'S SURGERY FOLLOWING ANTIBIOTICS WILL FOLLOW DANIEL AUSTIN MD Jun 21, 2019 15:58
[2019-06-21 16:37] VITALS: BP 104/60
--- NOTE | 2019-06-21 16:42 | PDOC ---
PROGRESS NOTES Chief Complaint Chief Complaint acute abd pain small bowel obstruction, lactate elevated from this metastatic breast cancer malnutrition acute on chronic CKD 4 cognitive decline, dementia Hx, chronic History of Present Illness History of Present Illness a lot of output from NG tube, > 1000 per shift, pain better up to chair lactic acidosis noted last night, IV fluid givne Vitals Vitals Vital Signs Date Time Temp Pulse Resp B/P (MAP) Pulse Ox O2 Delivery O2 Flow Rate FiO2 06/21/19 16:37 86 104/60 (75) 06/21/19 15:00 97.9 16 98 Room Air 97.9 Physical Exam General: Alert, Oriented X3, Cooperative, No acute distress Heart: Regular rate, Normal S2 Lungs: Clear Abdomen: Soft Extremities: No clubbing, No cyanosis Skin: No breakdown Labs LABS Laboratory Tests Test 06/20/19 17:00 06/21/19 03:50 Lactic Acid Level 4.3 mmol/L (0.4-2.0) White Blood Count 5.7 x10^3/uL (4.0-11.0) Red Blood Count 2.81 x10^6/uL (3.50-5.40) Hemoglobin 10.2 g/dL (12.0-15.5) Hematocrit 29.5 % (36.0-47.0) Mean Corpuscular Volume 105 fL (79-100) Mean Corpuscular Hemoglobin 36 pg (25-35) Mean Corpuscular Hemoglobin Concent 35 g/dL (31-37) Red Cell Distribution Width 20.7 % (11.5-14.5) Platelet Count 140 x10^3/uL (140-400) Neutrophils (%) (Auto) 70 % (31-73) Lymphocytes (%) (Auto) 20 % (24-48) Monocytes (%) (Auto) 9 % (0-9) Eosinophils (%) (Auto) 1 % (0-3) Basophils (%) (Auto) 1 % (0-3) Neutrophils # (Auto) 4.0 x10^3/uL (1.8-7.7) Lymphocytes # (Auto) 1.1 x10^3/uL (1.0-4.8) Monocytes # (Auto) 0.5 x10^3/uL (0.0-1.1) Eosinophils # (Auto) 0.1 x10^3/uL (0.0-0.7) Basophils # (Auto) 0.0 x10^3/uL (0.0-0.2) Sodium Level 141 mmol/L (136-145) Potassium Level 4.2 mmol/L (3.5-5.1) Chloride Level 105 mmol/L (98-107) Carbon Dioxide Level 25 mmol/L (21-32) Anion Gap 11 (6-14) Blood Urea Nitrogen 66 mg/dL (7-20) Creatinine 2.6 mg/dL (0.6-1.0) Estimated GFR (Cockcroft-Gault) 17.5 BUN/Creatinine Ratio 25 (6-20) Glucose Level 89 mg/dL (70-99) Calcium Level 8.9 mg/dL (8.5-10.1) Phosphorus Level 3.0 mg/dL (2.6-4.7) Magnesium Level 3.5 mg/dL (1.8-2.4) Total Bilirubin 0.7 mg/dL (0.2-1.0) Aspartate Amino Transf (AST/SGOT) 46 U/L (15-37) Alanine Aminotransferase (ALT/SGPT) 48 U/L (14-59) Alkaline Phosphatase 154 U/L (46-116) Total Protein 6.8 g/dL (6.4-8.2) Albumin 2.7 g/dL (3.4-5.0) Albumin/Globulin Ratio 0.7 (1.0-1.7) Assessment and Plan Assessmemt and Plan Problems Medical Problems: (1) RUFINO (acute kidney injury) Status: Acute (2) Dehydration Status: Acute (3) Encephalopathy Status: Acute (4) Small bowel obstruction Status: Acute Comment Review of Relevant I have reviewed the following items lola (where applicable) has been applied. Labs Laboratory Tests Test 06/19/19 21:05 06/20/19 01:30 06/20/19 05:25 06/20/19 09:15 Lactic Acid Level 3.6 mmol/L (0.4-2.0) 4.3 mmol/L (0.4-2.0) 2.9 mmol/L (0.4-2.0) Sodium Level 145 mmol/L (136-145) Potassium Level 4.4 mmol/L (3.5-5.1) Chloride Level 108 mmol/L (98-107) Carbon Dioxide Level 22 mmol/L (21-32) Anion Gap 15 (6-14) Blood Urea Nitrogen 54 mg/dL (7-20) Creatinine 2.9 mg/dL (0.6-1.0) Estimated GFR (Cockcroft-Gault) 15.4 Glucose Level 96 mg/dL (70-99) Calcium Level 8.2 mg/dL (8.5-10.1) White Blood Count 7.8 x10^3/uL (4.0-11.0) Red Blood Count 3.12 x10^6/uL (3.50-5.40) Hemoglobin 11.3 g/dL (12.0-15.5) Hematocrit 33.5 % (36.0-47.0) Mean Corpuscular Volume 107 fL (79-100) Mean Corpuscular Hemoglobin 36 pg (25-35) Mean Corpuscular Hemoglobin Concent 34 g/dL (31-37) Red Cell Distribution Width 21.6 % (11.5-14.5) Platelet Count 135 x10^3/uL (140-400) Neutrophils (%) (Auto) 69 % (31-73) Lymphocytes (%) (Auto) 17 % (24-48) Monocytes (%) (Auto) 15 % (0-9) Eosinophils (%) (Auto) 0 % (0-3) Basophils (%) (Auto) 0 % (0-3) Neutrophils # (Auto) 5.3 x10^3/uL (1.8-7.7) Lymphocytes # (Auto) 1.3 x10^3/uL (1.0-4.8) Monocytes # (Auto) 1.1 x10^3/uL (0.0-1.1) Eosinophils # (Auto) 0.0 x10^3/uL (0.0-0.7) Basophils # (Auto) 0.0 x10^3/uL (0.0-0.2) Segmented Neutrophils % 16 % (35-66) Band Neutrophils % 49 % (0-9) Lymphocytes % 27 % (24-48) Monocytes % 7 % (0-10) Myelocytes % 1 % (0-0) Platelet Estimate Adequate (ADEQUATE) Test 06/20/19 11:00 06/20/19 14:45 06/20/19 17:00 06/21/19 03:50 Lactic Acid Level 7.4 mmol/L (0.4-2.0) 4.3 mmol/L (0.4-2.0) Urine Collection Type Unknown Urine Color Elissa Urine Clarity Cloudy Urine pH 5.0 Urine Specific [place] 1.020 Urine Protein 30 mg/dL (NEG-TRACE) Urine Glucose (UA) Negative mg/dL (NEG) Urine Ketones (Stick) Negative mg/dL (NEG) Urine Blood Negative (NEG) Urine Nitrite Negative (NEG) Urine Bilirubin Small (NEG) Urine Urobilinogen Dipstick 0.2 mg/dL (0.2 mg/dL) Urine Leukocyte Esterase Trace (NEG) Urine RBC Rare /HPF (0-2) Urine WBC 11-20 /HPF (0-4) Urine Squamous Epithelial Cells Mod /LPF Urine Bacteria Few /HPF (0-FEW) White Blood Count 5.7 x10^3/uL (4.0-11.0) Red Blood Count 2.81 x10^6/uL (3.50-5.40) Hemoglobin 10.2 g/dL (12.0-15.5) Hematocrit 29.5 % (36.0-47.0) Mean Corpuscular Volume 105 fL (79-100) Mean Corpuscular Hemoglobin 36 pg (25-35) Mean Corpuscular Hemoglobin Concent 35 g/dL (31-37) Red Cell Distribution Width 20.7 % (11.5-14.5) Platelet Count 140 x10^3/uL (140-400) Neutrophils (%) (Auto) 70 % (31-73) Lymphocytes (%) (Auto) 20 % (24-48) Monocytes (%) (Auto) 9 % (0-9) Eosinophils (%) (Auto) 1 % (0-3) Basophils (%) (Auto) 1 % (0-3) Neutrophils # (Auto) 4.0 x10^3/uL (1.8-7.7) Lymphocytes # (Auto) 1.1 x10^3/uL (1.0-4.8) Monocytes # (Auto) 0.5 x10^3/uL (0.0-1.1) Eosinophils # (Auto) 0.1 x10^3/uL (0.0-0.7) Basophils # (Auto) 0.0 x10^3/uL (0.0-0.2) Sodium Level 141 mmol/L (136-145) Potassium Level 4.2 mmol/L (3.5-5.1) Chloride Level 105 mmol/L (98-107) Carbon Dioxide Level 25 mmol/L (21-32) Anion Gap 11 (6-14) Blood Urea Nitrogen 66 mg/dL (7-20) Creatinine 2.6 mg/dL (0.6-1.0) Estimated GFR (Cockcroft-Gault) 17.5 BUN/Creatinine Ratio 25 (6-20) Glucose Level 89 mg/dL (70-99) Calcium Level 8.9 mg/dL (8.5-10.1) Phosphorus Level 3.0 mg/dL (2.6-4.7) Magnesium Level 3.5 mg/dL (1.8-2.4) Total Bilirubin 0.7 mg/dL (0.2-1.0) Aspartate Amino Transf (AST/SGOT) 46 U/L (15-37) Alanine Aminotransferase (ALT/SGPT) 48 U/L (14-59) Alkaline Phosphatase 154 U/L (46-116) Total Protein 6.8 g/dL (6.4-8.2) Albumin 2.7 g/dL (3.4-5.0) Albumin/Globulin Ratio 0.7 (1.0-1.7) Laboratory Tests Test 06/20/19 17:00 06/21/19 03:50 Lactic Acid Level 4.3 mmol/L (0.4-2.0) White Blood Count 5.7 x10^3/uL (4.0-11.0) Red Blood Count 2.81 x10^6/uL (3.50-5.40) Hemoglobin 10.2 g/dL (12.0-15.5) Hematocrit 29.5 % (36.0-47.0) Mean Corpuscular Volume 105 fL (79-100) Mean Corpuscular Hemoglobin 36 pg (25-35) Mean Corpuscular Hemoglobin Concent 35 g/dL (31-37) Red Cell Distribution Width 20.7 % (11.5-14.5) Platelet Count 140 x10^3/uL (140-400) Neutrophils (%) (Auto) 70 % (31-73) Lymphocytes (%) (Auto) 20 % (24-48) Monocytes (%) (Auto) 9 % (0-9) Eosinophils (%) (Auto) 1 % (0-3) Basophils (%) (Auto) 1 % (0-3) Neutrophils # (Auto) 4.0 x10^3/uL (1.8-7.7) Lymphocytes # (Auto) 1.1 x10^3/uL (1.0-4.8) Monocytes # (Auto) 0.5 x10^3/uL (0.0-1.1) Eosinophils # (Auto) 0.1 x10^3/uL (0.0-0.7) Basophils # (Auto) 0.0 x10^3/uL (0.0-0.2) Sodium Level 141 mmol/L (136-145) Potassium Level 4.2 mmol/L (3.5-5.1) Chloride Level 105 mmol/L (98-107) Carbon Dioxide Level 25 mmol/L (21-32) Anion Gap 11 (6-14) Blood Urea Nitrogen 66 mg/dL (7-20) Creatinine 2.6 mg/dL (0.6-1.0) Estimated GFR (Cockcroft-Gault) 17.5 BUN/Creatinine Ratio 25 (6-20) Glucose Level 89 mg/dL (70-99) Calcium Level 8.9 mg/dL (8.5-10.1) Phosphorus Level 3.0 mg/dL (2.6-4.7) Magnesium Level 3.5 mg/dL (1.8-2.4) Total Bilirubin 0.7 mg/dL (0.2-1.0) Aspartate Amino Transf (AST/SGOT) 46 U/L (15-37) Alanine Aminotransferase (ALT/SGPT) 48 U/L (14-59) Alkaline Phosphatase 154 U/L (46-116) Total Protein 6.8 g/dL (6.4-8.2) Albumin 2.7 g/dL (3.4-5.0) Albumin/Globulin Ratio 0.7 (1.0-1.7) Medications Current Medications Potassium Chloride/Sodium Chloride 1,000 ml @ 125 mls/hr Q8H IV Last administered on 06/20/19at 07:57; Start 06/19/19 at 22:15; Stop 06/20/19 at 08:50; Status DC Throat Lozenges (Chloraseptic) 1 spray PRN Q2HR PRN PO SORE THROAT, 2ND CHOICE; Start 06/19/19 at 22:15 Throat Lozenges (Cepacol Sore Throat Lozenge) 1 juan PRN Q2HRS PRN PO SORE THROAT, 1ST CHOICE; Start 06/19/19 at 22:15 Sodium Chloride 250 ml @ 250 mls/hr 1X ONCE IV Last administered on 06/20/19at 03:24; Start 06/20/19 at 02:45; Stop 06/20/19 at 03:45; Status DC Ondansetron HCl (Zofran) 4 mg PRN Q6HRS PRN IV NAUSEA/VOMITING Last administered on 06/21/19at 07:42; Start 06/20/19 at 08:00 Buspirone HCl (Buspar) 5 mg QID PO ; Start 06/20/19 at 09:00 Donepezil HCl (Aricept) 10 mg DAILY PO ; Start 06/20/19 at 09:00 Latanoprost (Xalatan) 1 drop QHS OU ; Start 06/20/19 at 21:00 Levothyroxine Sodium (Synthroid) 50 mcg DAILYAC PO ; Start 06/20/19 at 09:00 Lorazepam (Ativan) 0.5 mg PRN Q4HRS PRN PO ANXIETY / AGITATION; Start 06/20/19 at 08:45 Potassium Chloride (Klor-Con) 10 meq DAILY PO ; Start 06/20/19 at 09:00 Non-Formulary Medication (Melatonin ) 1 tab QHS PO ; Start 06/20/19 at 21:00; Status UNV Pantoprazole Sodium (Protonix) 40 mg DAILYAC PO ; Start 06/20/19 at 09:00 Ondansetron HCl (Zofran Odt) 4 mg PRN Q6HRS PRN PO NAUSEA/VOMITING; Start 06/20/19 at 09:00 Amino Acids/ Glycerin/ Electrolytes 1,000 ml @ 80 mls/hr [id number] IV Last administered on 06/21/19at 07:42; Start 06/20/19 at 09:00 Sodium Chloride 1,000 ml @ 1,000 mls/hr 1X ONCE IV Last administered on 06/20/19at 13:50; Start 06/20/19 at 13:30; Stop 06/20/19 at 14:29; Status DC Methylprednisolone Sodium Succinate (SOLU-Medrol 125MG VIAL) 125 mg 1X ONCE IV ; Start 06/21/19 at 18:00; Stop 06/21/19 at 18:01 Methylprednisolone Sodium Succinate (SOLU-Medrol 125MG VIAL) 125 mg 1X ONCE IV ; Start 06/22/19 at 00:00; Stop 06/22/19 at 00:01 Methylprednisolone Sodium Succinate (SOLU-Medrol 125MG VIAL) 125 mg 1X ONCE IV ; Start 06/22/19 at 06:00; Stop 06/22/19 at 06:01 Diphenhydramine HCl (Benadryl) 50 mg 1X ONCE IVP ; Start 06/22/19 at 07:00; Stop 06/22/19 at 07:01 Sodium Chloride 500 ml @ 500 mls/hr 1X ONCE IV Last administered on 06/21/19at 15:38; Start 06/21/19 at 15:30; Stop 06/21/19 at 16:29; Status DC Levofloxacin (Levaquin) 250 mg DAILY06 PO ; Start 06/22/19 at 06:00 Active Scripts Active Reported Aspirin 81 Mg Tab.chew 1 Tab PO DAILY Ultram (Tramadol Hcl) 50 Mg Tablet 50 Mg PO Q4HRS PRN Potassium Chloride 10 Meq Tab.sr.24h 10 Meq PO DAILY Namenda (Memantine Hcl) 10 Mg Tablet 10 Mg PO BID Zofran (Ondansetron Hcl) 4 Mg Tablet 1 Tab PO PRN Q6-8HRS Imodium A-D (Loperamide Hcl) 1 Mg/7.5 Ml Liquid 1 Mg PO PRN PRN Omeprazole 20 Mg Tablet.dr 1 Tab PO DAILY Acetaminophen 325 Mg Tablet 325 Mg PO Q4HRS Donepezil Hcl 10 Mg Tablet 1 Tab PO DAILY Xeloda (Capecitabine) 500 Mg Tablet 2,000 Mg PO Q12HR Buspirone Hcl 5 Mg Tablet 1 Tab PO QID Melatonin 3 Mg Tablet 1 Tab PO QHS Levothyroxine Sodium 50 Mcg Tablet 50 Mcg PO DAILYAC Cerefolin Nac Caplet (Lmfol Ca/Acetyl/Mb12/Algal Oil) 1 Each Tablet 1 Each PO DAILY Xalatan (Latanoprost) 2.5 Ml Drops 1 Drop EACHEYE QHS Magnesium Oxide 400 Mg Tablet 1 Tab PO TID Pepcid (Famotidine) 20 Mg Tablet 20 Mg PO DAILY Ativan (Lorazepam) 0.5 Mg Tablet 0.5 Mg PO Q4HRS PRN Vitals/I & O Vital Sign - Last 24 Hours 06/20/19 06/20/19 06/20/19 06/21/19 19:30 20:00 23:45 03:58 Temp 97.7 97.9 97.6 97.7 97.9 97.6 Pulse 98 93 100 Resp 18 16 16 B/P (MAP) 105/57 (73) 105/58 (74) 104/61 (75) Pulse Ox 95 94 93 O2 Delivery Room Air Room Air Room Air Room Air 06/21/19 06/21/19 06/21/19 06/21/19 07:29 11:00 15:00 16:37 Temp 98.1 97.9 98.1 97.9 Pulse 94 91 86 Resp 16 16 B/P (MAP) 103/62 (76) 86/43 (57) 104/60 (75) Pulse Ox 93 98 O2 Delivery Room Air Room Air Room Air Intake and Output 06/20/19 06/20/19 06/21/19 15:00 23:00 07:00 Intake Total 300 ml 1355 ml Output Total 450 ml 550 ml 1350 ml Balance -150 ml 805 ml -1350 ml Nutrition Consultation Dietary Evaluation: Recommendations by RD: PPN/TPN Comments: continue with PPN until able to advance diet Expected Outcomes/Goals: to meet > 75% est nutr needs via po intake Malnutrition Findings: Muscle Mass (Severe): Severe Depletion Food and Nutrition Intake (Sev: <50% est energy req 5days Body Fat Depletion (Non Severe: Mod to Severe Weight Status: Underweight ZUHAIR RIVERA MD Jun 21, 2019 16:42
[2019-06-21] MEDS ORDERED: methylPREDNISolone SOD SUCC PF 125 MG/2 ML VIAL. IV ONE (18:00)
[2019-06-21 19:25] VITALS: BP 101/56
[2019-06-21] MEDS: LATANOPROST 0.005% OPHTH SOLUTION 2.5ML BOTTLE. OU SCH (21:49)
[2019-06-21 23:11] VITALS: BP 106/56
[2019-06-22] MEDS: AMINO AC 3%/ELECTROLYTE/GLYCER 1,000 ML IV SCH ×3 (03:33→17:19)
[2019-06-22 03:34] VITALS: BP 109/48
[2019-06-22 05:39] LABS: CALCIUM 8.8 mg/dL (8.5-10.1); CREATININE 2.7 mg/dL (0.6-1.0); GFR 16.7; POTASSIUM 4.4 mmol/L (3.5-5.1)
[2019-06-22] MEDS: ONDANSETRON ODT 4 MG TAB.RAPDIS. PO PRN (05:57)
[2019-06-22] MEDS ORDERED: methylPREDNISolone SOD SUCC PF 125 MG/2 ML VIAL. IV ONE ×2 (06:00)
[2019-06-22] MEDS: PANTOPRAZOLE IV PUSH 40 MG VIAL. IVP SCH (06:27)
[2019-06-22] MEDS: LEVOTHYROXINE 50 MCG TABLET PO SCH (06:37)
[2019-06-22 07:00] VITALS: BP 110/68
[2019-06-22] MEDS ORDERED: diphenhydrAMINE 50 MG/ML VIAL IVP ONE (07:00)
[2019-06-22] MEDS ORDERED: IOHEXOL 300 MG/ML 100ML VIAL. PO ONE (07:45)
[2019-06-22] MEDS ORDERED: CONTRAST GIVEN. MC PRN (08:00)
[2019-06-22] MEDS: DONEPEZIL HCL 10 MG TABLET. PO SCH (08:06)
[2019-06-22] MEDS: busPIRone 5 MG TABLET. PO SCH ×4 (08:06→21:00)
[2019-06-22] MEDS: POTASSIUM CHLORIDE 10 MEQ TABLET.ER. PO SCH (08:06)
--- NOTE | 2019-06-22 08:30 | NUR ---
Pt to radiology for SBS.
--- NOTE | 2019-06-22 10:00 | NUR ---
pt back from radiology, continue to keep NG clamp for small bowel series per radiologist. Will have xray retake every hour.
[2019-06-22 11:00] VITALS: BP 98/58
--- NOTE | 2019-06-22 11:07 | RAD ---
EXAM: AP views of the abdomen in upright and supine positions. CLINICAL INDICATION: Follow-up, small bowel obstruction COMPARISON: None. FINDINGS and IMPRESSION: Enteric tube tip projects over the fundus of the stomach. Dilated loops of small bowel are seen with air-fluid levels consistent with small bowel obstruction, stable. Electronically signed by: Yves Kingston MD (06/22/2019 11:05 AM) [facility]
[2019-06-22] MEDS ORDERED: IV NORMAL SALINE 1000ML BAG 1,000 ML IV ONE (11:15)
--- NOTE | 2019-06-22 11:36 | PDOC ---
Renal-Progress Notes Subjective Notes Notes NONE History of Present Illness Hx of present illness NO CHANGE Vitals Vitals Vital Signs Date Time Temp Pulse Resp B/P (MAP) Pulse Ox O2 Delivery O2 Flow Rate FiO2 06/22/19 11:00 98.4 78 18 98/58 (71) 98 Room Air 98.4 Weight Weight [ ] I.O. Intake and Output l Intake and Output 06/22/19 06:59 Intake Total 1500 ml Output Total 2250 ml Balance -750 ml Intake Oral 0 ml IV Total 1500 ml Gastric Drainage Total 2250 ml # Voids 2 Labs Labs Laboratory Tests Test 06/21/19 12:30 06/22/19 05:10 Nasal Screen MRSA (PCR) Negative (Negative) Sodium Level 139 mmol/L (136-145) Potassium Level 4.4 mmol/L (3.5-5.1) Chloride Level 100 mmol/L (98-107) Carbon Dioxide Level 27 mmol/L (21-32) Anion Gap 12 (6-14) Blood Urea Nitrogen 94 mg/dL (7-20) Creatinine 2.7 mg/dL (0.6-1.0) Estimated GFR (Cockcroft-Gault) 16.7 Glucose Level 136 mg/dL (70-99) Calcium Level 8.8 mg/dL (8.5-10.1) Micro Micro Microbiology 06/20/19 Urine Culture - Final, Complete 06/20/19 Urine Culture Result 1 (YOBANY) - Final, Complete Physical Exam Musculoskeletal: Osteoarthritis Assessment Assessment IMP DEHYDRATION RUFINO DUE TO ABOVE -BETTER ENCEPHALOPATHY DEMENTIA SBO UTI PLAN PPN IVF'S SURGERY FOLLOWING ANTIBIOTICS RENAL SONOGRAM WILL FOLLOW DANIEL AUSTIN MD Jun 22, 2019 11:36
--- NOTE | 2019-06-22 13:46 | PDOC ---
PROGRESS NOTES Chief Complaint Chief Complaint acute abd pain small bowel obstruction, lactate elevated from this metastatic breast cancer malnutrition acute on chronic CKD 4 cognitive decline, dementia Hx, chronic History of Present Illness History of Present Illness a lot of output from NG tube, still a lot of fluid of otu tube SBFT today up to chair as able lactic acidosis noted l cont IV Fluid renal fxn about the same, BUN up, Vitals Vitals Vital Signs Date Time Temp Pulse Resp B/P (MAP) Pulse Ox O2 Delivery O2 Flow Rate FiO2 06/22/19 11:00 98.4 78 18 98/58 (71) 98 Room Air 98.4 Physical Exam General: Alert, Oriented X3, Cooperative, No acute distress Heart: Regular rate, Normal S2 Lungs: Clear Abdomen: Soft Extremities: No clubbing, No cyanosis Skin: No breakdown Labs LABS Laboratory Tests Test 06/22/19 05:10 Sodium Level 139 mmol/L (136-145) Potassium Level 4.4 mmol/L (3.5-5.1) Chloride Level 100 mmol/L (98-107) Carbon Dioxide Level 27 mmol/L (21-32) Anion Gap 12 (6-14) Blood Urea Nitrogen 94 mg/dL (7-20) Creatinine 2.7 mg/dL (0.6-1.0) Estimated GFR (Cockcroft-Gault) 16.7 Glucose Level 136 mg/dL (70-99) Calcium Level 8.8 mg/dL (8.5-10.1) Assessment and Plan Assessmemt and Plan Problems Medical Problems: (1) RUFINO (acute kidney injury) Status: Acute (2) Dehydration Status: Acute (3) Encephalopathy Status: Acute (4) Small bowel obstruction Status: Acute Comment Review of Relevant I have reviewed the following items lola (where applicable) has been applied. Labs Laboratory Tests Test 06/20/19 14:45 06/20/19 17:00 06/21/19 03:50 06/21/19 12:30 Urine Collection Type Unknown Urine Color Elissa Urine Clarity Cloudy Urine pH 5.0 Urine Specific [place] 1.020 Urine Protein 30 mg/dL (NEG-TRACE) Urine Glucose (UA) Negative mg/dL (NEG) Urine Ketones (Stick) Negative mg/dL (NEG) Urine Blood Negative (NEG) Urine Nitrite Negative (NEG) Urine Bilirubin Small (NEG) Urine Urobilinogen Dipstick 0.2 mg/dL (0.2 mg/dL) Urine Leukocyte Esterase Trace (NEG) Urine RBC Rare /HPF (0-2) Urine WBC 11-20 /HPF (0-4) Urine Squamous Epithelial Cells Mod /LPF Urine Bacteria Few /HPF (0-FEW) Lactic Acid Level 4.3 mmol/L (0.4-2.0) White Blood Count 5.7 x10^3/uL (4.0-11.0) Red Blood Count 2.81 x10^6/uL (3.50-5.40) Hemoglobin 10.2 g/dL (12.0-15.5) Hematocrit 29.5 % (36.0-47.0) Mean Corpuscular Volume 105 fL (79-100) Mean Corpuscular Hemoglobin 36 pg (25-35) Mean Corpuscular Hemoglobin Concent 35 g/dL (31-37) Red Cell Distribution Width 20.7 % (11.5-14.5) Platelet Count 140 x10^3/uL (140-400) Neutrophils (%) (Auto) 70 % (31-73) Lymphocytes (%) (Auto) 20 % (24-48) Monocytes (%) (Auto) 9 % (0-9) Eosinophils (%) (Auto) 1 % (0-3) Basophils (%) (Auto) 1 % (0-3) Neutrophils # (Auto) 4.0 x10^3/uL (1.8-7.7) Lymphocytes # (Auto) 1.1 x10^3/uL (1.0-4.8) Monocytes # (Auto) 0.5 x10^3/uL (0.0-1.1) Eosinophils # (Auto) 0.1 x10^3/uL (0.0-0.7) Basophils # (Auto) 0.0 x10^3/uL (0.0-0.2) Sodium Level 141 mmol/L (136-145) Potassium Level 4.2 mmol/L (3.5-5.1) Chloride Level 105 mmol/L (98-107) Carbon Dioxide Level 25 mmol/L (21-32) Anion Gap 11 (6-14) Blood Urea Nitrogen 66 mg/dL (7-20) Creatinine 2.6 mg/dL (0.6-1.0) Estimated GFR (Cockcroft-Gault) 17.5 BUN/Creatinine Ratio 25 (6-20) Glucose Level 89 mg/dL (70-99) Calcium Level 8.9 mg/dL (8.5-10.1) Phosphorus Level 3.0 mg/dL (2.6-4.7) Magnesium Level 3.5 mg/dL (1.8-2.4) Total Bilirubin 0.7 mg/dL (0.2-1.0) Aspartate Amino Transf (AST/SGOT) 46 U/L (15-37) Alanine Aminotransferase (ALT/SGPT) 48 U/L (14-59) Alkaline Phosphatase 154 U/L (46-116) Total Protein 6.8 g/dL (6.4-8.2) Albumin 2.7 g/dL (3.4-5.0) Albumin/Globulin Ratio 0.7 (1.0-1.7) Nasal Screen MRSA (PCR) Negative (Negative) Test 06/22/19 05:10 Sodium Level 139 mmol/L (136-145) Potassium Level 4.4 mmol/L (3.5-5.1) Chloride Level 100 mmol/L (98-107) Carbon Dioxide Level 27 mmol/L (21-32) Anion Gap 12 (6-14) Blood Urea Nitrogen 94 mg/dL (7-20) Creatinine 2.7 mg/dL (0.6-1.0) Estimated GFR (Cockcroft-Gault) 16.7 Glucose Level 136 mg/dL (70-99) Calcium Level 8.8 mg/dL (8.5-10.1) Laboratory Tests Test 06/22/19 05:10 Sodium Level 139 mmol/L (136-145) Potassium Level 4.4 mmol/L (3.5-5.1) Chloride Level 100 mmol/L (98-107) Carbon Dioxide Level 27 mmol/L (21-32) Anion Gap 12 (6-14) Blood Urea Nitrogen 94 mg/dL (7-20) Creatinine 2.7 mg/dL (0.6-1.0) Estimated GFR (Cockcroft-Gault) 16.7 Glucose Level 136 mg/dL (70-99) Calcium Level 8.8 mg/dL (8.5-10.1) Microbiology 06/20/19 Urine Culture - Final, Complete 06/20/19 Urine Culture Result 1 (YOBANY) - Final, Complete Medications Current Medications Potassium Chloride/Sodium Chloride 1,000 ml @ 125 mls/hr Q8H IV Last administered on 06/20/19at 07:57; Start 06/19/19 at 22:15; Stop 06/20/19 at 08:50; Status DC Throat Lozenges (Chloraseptic) 1 spray PRN Q2HR PRN PO SORE THROAT, 2ND CHOICE; Start 06/19/19 at 22:15 Throat Lozenges (Cepacol Sore Throat Lozenge) 1 juan PRN Q2HRS PRN PO SORE THROAT, 1ST CHOICE; Start 06/19/19 at 22:15 Sodium Chloride 250 ml @ 250 mls/hr 1X ONCE IV Last administered on 06/20/19at 03:24; Start 06/20/19 at 02:45; Stop 06/20/19 at 03:45; Status DC Ondansetron HCl (Zofran) 4 mg PRN Q6HRS PRN IV NAUSEA/VOMITING Last administered on 06/21/19at 07:42; Start 06/20/19 at 08:00 Buspirone HCl (Buspar) 5 mg QID PO ; Start 06/20/19 at 09:00 Donepezil HCl (Aricept) 10 mg DAILY PO ; Start 06/20/19 at 09:00 Latanoprost (Xalatan) 1 drop QHS OU Last administered on 06/21/19at 21:49; Start 06/20/19 at 21:00 Levothyroxine Sodium (Synthroid) 50 mcg DAILYAC PO ; Start 06/20/19 at 09:00 Lorazepam (Ativan) 0.5 mg PRN Q4HRS PRN PO ANXIETY / AGITATION; Start 06/20/19 at 08:45 Potassium Chloride (Klor-Con) 10 meq DAILY PO ; Start 06/20/19 at 09:00 Non-Formulary Medication (Melatonin ) 1 tab QHS PO ; Start 06/20/19 at 21:00; Status UNV Pantoprazole Sodium (Protonix) 40 mg DAILYAC PO ; Start 06/20/19 at 09:00; Stop 06/21/19 at 22:23; Status DC Ondansetron HCl (Zofran Odt) 4 mg PRN Q6HRS PRN PO NAUSEA/VOMITING Last administered on 06/22/19at 05:57; Start 06/20/19 at 09:00 Amino Acids/ Glycerin/ Electrolytes 1,000 ml @ 80 mls/hr [id number] IV Last administered on 06/22/19at 03:33; Start 06/20/19 at 09:00 Sodium Chloride 1,000 ml @ 1,000 mls/hr 1X ONCE IV Last administered on 06/20/19at 13:50; Start 06/20/19 at 13:30; Stop 06/20/19 at 14:29; Status DC Methylprednisolone Sodium Succinate (SOLU-Medrol 125MG VIAL) 125 mg 1X ONCE IV Last administered on 06/21/19at 17:15; Start 06/21/19 at 18:00; Stop 06/21/19 at 18:01; Status DC Methylprednisolone Sodium Succinate (SOLU-Medrol 125MG VIAL) 125 mg 1X ONCE IV Last administered on 06/22/19at 01:38; Start 06/22/19 at 00:00; Stop 06/22/19 at 00:01; Status DC Methylprednisolone Sodium Succinate (SOLU-Medrol 125MG VIAL) 125 mg 1X ONCE IV Last administered on 06/22/19at 05:43; Start 06/22/19 at 06:00; Stop 06/22/19 at 06:01; Status DC Diphenhydramine HCl (Benadryl) 50 mg 1X ONCE IVP Last administered on 06/22/19at 07:46; Start 06/22/19 at 07:00; Stop 06/22/19 at 07:01; Status DC Sodium Chloride 500 ml @ 500 mls/hr 1X ONCE IV Last administered on 06/21/19at 15:38; Start 06/21/19 at 15:30; Stop 06/21/19 at 16:29; Status DC Levofloxacin (Levaquin) 250 mg DAILY06 PO ; Start 06/22/19 at 06:00; Stop 06/21/19 at 22:23; Status DC Levofloxacin/ Dextrose 50 ml @ 50 mls/hr Q24H IV ; Start 06/21/19 at 22:30; Stop 06/21/19 at 22:34; Status DC Pantoprazole Sodium (PROTONIX VIAL for IV PUSH) 40 mg DAILYAC IVP Last administered on 06/22/19at 06:27; Start 06/22/19 at 07:30 Levofloxacin/ Dextrose 50 ml @ 50 mls/hr Q24H IV Last administered on 06/22/19at 05:43; Start 06/22/19 at 06:00 Iohexol (Omnipaque 300 Mg/ml) 400 ml 1X ONCE PO ; Start 06/22/19 at 07:45; Stop 06/22/19 at 07:50; Status DC Info (CONTRAST GIVEN -- Rx MONITORING) 1 each PRN DAILY PRN MC SEE COMMENTS; Start 06/22/19 at 08:00; Stop 06/24/19 at 07:59 Sodium Chloride 1,000 ml @ 100 mls/hr 1X ONCE IV Last administered on 06/22/19at 11:40; Start 06/22/19 at 11:15; Stop 06/22/19 at 21:14 Active Scripts Active Reported Aspirin 81 Mg Tab.chew 1 Tab PO DAILY Ultram (Tramadol Hcl) 50 Mg Tablet 50 Mg PO Q4HRS PRN Potassium Chloride 10 Meq Tab.sr.24h 10 Meq PO DAILY Namenda (Memantine Hcl) 10 Mg Tablet 10 Mg PO BID Zofran (Ondansetron Hcl) 4 Mg Tablet 1 Tab PO PRN Q6-8HRS Imodium A-D (Loperamide Hcl) 1 Mg/7.5 Ml Liquid 1 Mg PO PRN PRN Omeprazole 20 Mg Tablet.dr 1 Tab PO DAILY Acetaminophen 325 Mg Tablet 325 Mg PO Q4HRS Donepezil Hcl 10 Mg Tablet 1 Tab PO DAILY Xeloda (Capecitabine) 500 Mg Tablet 2,000 Mg PO Q12HR Buspirone Hcl 5 Mg Tablet 1 Tab PO QID Melatonin 3 Mg Tablet 1 Tab PO QHS Levothyroxine Sodium 50 Mcg Tablet 50 Mcg PO DAILYAC Cerefolin Nac Caplet (Lmfol Ca/Acetyl/Mb12/Algal Oil) 1 Each Tablet 1 Each PO DAILY Xalatan (Latanoprost) 2.5 Ml Drops 1 Drop EACHEYE QHS Magnesium Oxide 400 Mg Tablet 1 Tab PO TID Pepcid (Famotidine) 20 Mg Tablet 20 Mg PO DAILY Ativan (Lorazepam) 0.5 Mg Tablet 0.5 Mg PO Q4HRS PRN Vitals/I & O Vital Sign - Last 24 Hours 06/21/19 06/21/19 06/21/1906/21/19 15:00 16:37 19:25 19:55 Temp 97.9 98.1 97.9 98.1 Pulse 91 86 91 Resp 16 20 B/P (MAP) 86/43 (57) 104/60 (75) 101/56 (71) Pulse Ox 98 100 O2 Delivery Room Air Room Air Room Air 06/21/19 06/22/19 06/22/19 06/22/19 23:11 03:34 07:00 07:40 Temp 97.6 97.8 98.4 97.6 97.8 98.4 Pulse 89 70 89 Resp 18 18 18 B/P (MAP) 106/56 (73) 109/48 (68) 110/68 (82) Pulse Ox 95 93 97 O2 Delivery Room Air Room Air Room Air Room Air 06/22/19 11:00 Temp 98.4 98.4 Pulse 78 Resp 18 B/P (MAP) 98/58 (71) Pulse Ox 98 O2 Delivery Room Air Intake and Output 06/21/19 06/21/19 06/22/19 15:00 23:00 07:00 Intake Total 1000 ml 500 ml 0 ml Output Total 600 ml 950 ml 700 ml Balance 400 ml -450 ml -700 ml Nutrition Consultation Dietary Evaluation: Recommendations by RD: PPN/TPN Comments: continue with PPN until able to advance diet Expected Outcomes/Goals: to meet > 75% est nutr needs via po intake Malnutrition Findings: Muscle Mass (Severe): Severe Depletion Food and Nutrition Intake (Sev: <50% est energy req 5days Body Fat Depletion (Non Severe: Mod to Severe Weight Status: Underweight ZUHAIR RIVERA MD Jun 22, 2019 13:46
[2019-06-22 15:00] VITALS: BP 110/52
--- NOTE | 2019-06-22 15:30 | NUR ---
Pt was found vomiting, poultry field service technician at bedside for small bowel series and witness vomiting episodes. Received call back from radiology to connect pt back to suction. Dark green gastric output noted on NG tube/canister. Will continue to monitor.
[2019-06-22] MEDS: ONDANSETRON PF 4 MG/2 ML VIAL. IV PRN (15:39)
--- NOTE | 2019-06-22 16:58 | RAD ---
Renal sonography Clinical indications: Acute kidney injury. FINDINGS: The longitudinal and AP and transverse dimensions of the right kidney are 9.9 cm and 3.3 cm and 4.6 cm respectively. There is mildly dilated extrarenal pelvis versus an extra renal cyst measuring 15 mm in greatest dimension. The longitudinal and AP and transverse dimensions of the left kidney are 7.7 cm and 4.5 cm and 3.2 cm respectively. Left kidney is not well visualized. No definite renal mass is seen on either side otherwise. No hydronephrosis is seen on either side. Urinary bladder is mildly distended and no intraluminal echodensities or masses are seen. IMPRESSION: No hydronephrosis. Left renal atrophy. Electronically signed by: Suleman Marie MD (06/22/2019 4:55 PM) [id number]
--- NOTE | 2019-06-22 17:08 | RAD ---
EXAM: Small bowel follow-through DATE: 06/22/2019 5:00 AM INDICATION: Small bowel obstruction COMPARISON: No Prior Technique: Water-soluble contrast was administered to the patient and sequential images of the abdomen were taken. FINDINGS/ IMPRESSION: Water-soluble contrast was injected via NG tube. There is delayed transit of contrast material. There is diffuse dilation of small bowel loops. By the 7 hours and 30 minutes image, contrast is still seen in several proximal small bowel loops. Electronically signed by: Yves Kingston MD (06/22/2019 5:05 PM) [facility]
--- NOTE | 2019-06-22 18:03 | NUR ---
Bladder scanned pt after no voiding during this shift, 370cc of urine on bladder scan. This nurse got pt up to bs and pt was able to void 200cc on her own. Will continue to monitor urine output and report to supervisor facepiece line. Pt also continues to complain of nausea, dry heaving, hiccups despite being connected to NG at [facility], dark green gastric output continues to drain. Dr. Darius finn for further recommendations, will continue to monitor.
--- NOTE | 2019-06-22 18:44 | PDOC ---
SURGICAL PROGRESS NOTE Subjective sleepy denies pain Vital Signs Vital Signs Date Time Temp Pulse Resp B/P (MAP) Pulse Ox O2 Delivery O2 Flow Rate FiO2 06/22/19 15:00 98.4 91 18 110/52 (71) 100 Room Air 98.4 I&O Intake and Output 06/22/19 07:00 Intake Total 1500 ml Output Total 2250 ml Balance -750 ml Intake Oral 0 ml IV Total 1500 ml Gastric Drainage Total 2250 ml # Voids 2 PATIENT HAS A ARDON: No Abdomen: Soft Labs Laboratory Tests Test 06/21/19 03:50 06/21/19 12:30 06/22/19 05:10 White Blood Count 5.7 x10^3/uL (4.0-11.0) Red Blood Count 2.81 x10^6/uL (3.50-5.40) Hemoglobin 10.2 g/dL (12.0-15.5) Hematocrit 29.5 % (36.0-47.0) Mean Corpuscular Volume 105 fL (79-100) Mean Corpuscular Hemoglobin 36 pg (25-35) Mean Corpuscular Hemoglobin Concent 35 g/dL (31-37) Red Cell Distribution Width 20.7 % (11.5-14.5) Platelet Count 140 x10^3/uL (140-400) Neutrophils (%) (Auto) 70 % (31-73) Lymphocytes (%) (Auto) 20 % (24-48) Monocytes (%) (Auto) 9 % (0-9) Eosinophils (%) (Auto) 1 % (0-3) Basophils (%) (Auto) 1 % (0-3) Neutrophils # (Auto) 4.0 x10^3/uL (1.8-7.7) Lymphocytes # (Auto) 1.1 x10^3/uL (1.0-4.8) Monocytes # (Auto) 0.5 x10^3/uL (0.0-1.1) Eosinophils # (Auto) 0.1 x10^3/uL (0.0-0.7) Basophils # (Auto) 0.0 x10^3/uL (0.0-0.2) Sodium Level 141 mmol/L (136-145) 139 mmol/L (136-145) Potassium Level 4.2 mmol/L (3.5-5.1) 4.4 mmol/L (3.5-5.1) Chloride Level 105 mmol/L (98-107) 100 mmol/L (98-107) Carbon Dioxide Level 25 mmol/L (21-32) 27 mmol/L (21-32) Anion Gap 11 (6-14) 12 (6-14) Blood Urea Nitrogen 66 mg/dL (7-20) 94 mg/dL (7-20) Creatinine 2.6 mg/dL (0.6-1.0) 2.7 mg/dL (0.6-1.0) Estimated GFR (Cockcroft-Gault) 17.5 16.7 BUN/Creatinine Ratio 25 (6-20) Glucose Level 89 mg/dL (70-99) 136 mg/dL (70-99) Calcium Level 8.9 mg/dL (8.5-10.1) 8.8 mg/dL (8.5-10.1) Phosphorus Level 3.0 mg/dL (2.6-4.7) Magnesium Level 3.5 mg/dL (1.8-2.4) Total Bilirubin 0.7 mg/dL (0.2-1.0) Aspartate Amino Transf (AST/SGOT) 46 U/L (15-37) Alanine Aminotransferase (ALT/SGPT) 48 U/L (14-59) Alkaline Phosphatase 154 U/L (46-116) Total Protein 6.8 g/dL (6.4-8.2) Albumin 2.7 g/dL (3.4-5.0) Albumin/Globulin Ratio 0.7 (1.0-1.7) Nasal Screen MRSA (PCR) Negative (Negative) Laboratory Tests Test 06/22/19 05:10 Sodium Level 139 mmol/L (136-145) Potassium Level 4.4 mmol/L (3.5-5.1) Chloride Level 100 mmol/L (98-107) Carbon Dioxide Level 27 mmol/L (21-32) Anion Gap 12 (6-14) Blood Urea Nitrogen 94 mg/dL (7-20) Creatinine 2.7 mg/dL (0.6-1.0) Estimated GFR (Cockcroft-Gault) 16.7 Glucose Level 136 mg/dL (70-99) Calcium Level 8.8 mg/dL (8.5-10.1) I have reviewed the following SBFT reviewed Problem List Problems Medical Problems: (1) RUFINO (acute kidney injury) Status: Acute (2) Dehydration Status: Acute (3) Encephalopathy Status: Acute (4) Small bowel obstruction Status: Acute Assessment/Plan SBO check plain film in the AM does not seem to be responding to conservative care HUSSEIN WEINER MD Jun 22, 2019 18:44
--- NOTE | 2019-06-22 18:50 | NUR ---
Dr. Mccoy came to unit, pt states she feels better now, no new orders received. 450cc of gastric output noted on canister now. Will report to RICARDO Archer.
[2019-06-22 19:00] VITALS: BP 134/68
[2019-06-22] MEDS: LATANOPROST 0.005% OPHTH SOLUTION 2.5ML BOTTLE. OU SCH (21:12)
[2019-06-22 23:00] VITALS: BP 132/73
[2019-06-23 03:00] VITALS: BP 149/80
[2019-06-23] MEDS: AMINO AC 3%/ELECTROLYTE/GLYCER 1,000 ML IV SCH ×3 (05:43→16:59)
[2019-06-23 06:28] LABS: CALCIUM 8.6 mg/dL (8.5-10.1); CREATININE 2.5 mg/dL (0.6-1.0); GFR 18.3; POTASSIUM 4.3 mmol/L (3.5-5.1)
[2019-06-23 06:31] LABS: BASO % 0 % (0-3); EOS % 0 % (0-3); HEMATOCRIT 29.5 % (36.0-47.0); HEMOGLOBIN 10.1 g/dL (12.0-15.5); LYMPH # 1.2 x10^3/uL (1.0-4.8); LYMPH % 11 % (24-48); MEAN CORPUSCULAR HEMOGLOBIN 36 pg (25-35); MEAN CORPUSCULAR HGB CONC 34 g/dL (31-37); MEAN CORPUSCULAR VOLUME 106 fL (79-100); MONO # 1.1 x10^3/uL (0.0-1.1); MONO % 10 % (0-9); NEUT # 8.6 x10^3/uL (1.8-7.7); NEUT % 79 % (31-73); PLATELET COUNT 185 x10^3/uL (140-400); RED BLOOD COUNT 2.79 x10^6/uL (3.50-5.40); WHITE BLOOD COUNT 10.9 x10^3/uL (4.0-11.0)
[2019-06-23 07:00] VITALS: BP 111/67
[2019-06-23] MEDS: DONEPEZIL HCL 10 MG TABLET. PO SCH (07:14)
[2019-06-23] MEDS: POTASSIUM CHLORIDE 10 MEQ TABLET.ER. PO SCH (07:14)
[2019-06-23] MEDS: busPIRone 5 MG TABLET. PO SCH ×4 (07:14→21:00)
[2019-06-23 07:55] LABS: PLT ESTIMATE ADEQUATE (ADEQUATE)
[2019-06-23 07:56] LABS: ANISOCYTOSIS PRESENT; POLYCHROMASIA PRESENT
[2019-06-23] MEDS: PANTOPRAZOLE IV PUSH 40 MG VIAL. IVP SCH (07:56)
--- NOTE | 2019-06-23 08:13 | PDOC ---
SURGICAL PROGRESS NOTE Subjective awake, denies pain, tells me she had a stool yesterday (none charted so not sure if she is remembering correctly or not) Vital Signs Vital Signs Date Time Temp Pulse Resp B/P (MAP) Pulse Ox O2 Delivery O2 Flow Rate FiO2 06/23/19 03:00 97.9 76 18 149/80 (103) 94 Room Air 97.9 I&O Intake and Output 06/23/19 07:00 Intake Total 2693 ml Output Total 1550 ml Balance 1143 ml Intake Oral 0 ml IV Total 1733 ml Other 960 ml Output Urine Total 200 ml Gastric Drainage Total 1350 ml # Voids 1 PATIENT HAS A ARDON: No General: Alert, No acute distress HEENT: Other (NG in place with bilious return) Abdomen: Soft Labs Laboratory Tests Test 06/21/19 12:30 06/22/19 05:10 06/23/19 06:11 Nasal Screen MRSA (PCR) Negative (Negative) Sodium Level 139 mmol/L (136-145) 139 mmol/L (136-145) Potassium Level 4.4 mmol/L (3.5-5.1) 4.3 mmol/L (3.5-5.1) Chloride Level 100 mmol/L (98-107) 100 mmol/L (98-107) Carbon Dioxide Level 27 mmol/L (21-32) 28 mmol/L (21-32) Anion Gap 12 (6-14) 11 (6-14) Blood Urea Nitrogen 94 mg/dL (7-20) 102 mg/dL (7-20) Creatinine 2.7 mg/dL (0.6-1.0) 2.5 mg/dL (0.6-1.0) Estimated GFR (Cockcroft-Gault) 16.7 18.3 Glucose Level 136 mg/dL (70-99) 100 mg/dL (70-99) Calcium Level 8.8 mg/dL (8.5-10.1) 8.6 mg/dL (8.5-10.1) White Blood Count 10.9 x10^3/uL (4.0-11.0) Red Blood Count 2.79 x10^6/uL (3.50-5.40) Hemoglobin 10.1 g/dL (12.0-15.5) Hematocrit 29.5 % (36.0-47.0) Mean Corpuscular Volume 106 fL (79-100) Mean Corpuscular Hemoglobin 36 pg (25-35) Mean Corpuscular Hemoglobin Concent 34 g/dL (31-37) Red Cell Distribution Width 21.0 % (11.5-14.5) Platelet Count 185 x10^3/uL (140-400) Neutrophils (%) (Auto) 79 % (31-73) Lymphocytes (%) (Auto) 11 % (24-48) Monocytes (%) (Auto) 10 % (0-9) Eosinophils (%) (Auto) 0 % (0-3) Basophils (%) (Auto) 0 % (0-3) Neutrophils # (Auto) 8.6 x10^3/uL (1.8-7.7) Lymphocytes # (Auto) 1.2 x10^3/uL (1.0-4.8) Monocytes # (Auto) 1.1 x10^3/uL (0.0-1.1) Eosinophils # (Auto) 0.0 x10^3/uL (0.0-0.7) Basophils # (Auto) 0.0 x10^3/uL (0.0-0.2) Platelet Estimate Adequate (ADEQUATE) Polychromasia Present Anisocytosis Present Macrocytosis Present Laboratory Tests Test 06/23/19 06:11 White Blood Count 10.9 x10^3/uL (4.0-11.0) Red Blood Count 2.79 x10^6/uL (3.50-5.40) Hemoglobin 10.1 g/dL (12.0-15.5) Hematocrit 29.5 % (36.0-47.0) Mean Corpuscular Volume 106 fL (79-100) Mean Corpuscular Hemoglobin 36 pg (25-35) Mean Corpuscular Hemoglobin Concent 34 g/dL (31-37) Red Cell Distribution Width 21.0 % (11.5-14.5) Platelet Count 185 x10^3/uL (140-400) Neutrophils (%) (Auto) 79 % (31-73) Lymphocytes (%) (Auto) 11 % (24-48) Monocytes (%) (Auto) 10 % (0-9) Eosinophils (%) (Auto) 0 % (0-3) Basophils (%) (Auto) 0 % (0-3) Neutrophils # (Auto) 8.6 x10^3/uL (1.8-7.7) Lymphocytes # (Auto) 1.2 x10^3/uL (1.0-4.8) Monocytes # (Auto) 1.1 x10^3/uL (0.0-1.1) Eosinophils # (Auto) 0.0 x10^3/uL (0.0-0.7) Basophils # (Auto) 0.0 x10^3/uL (0.0-0.2) Platelet Estimate Adequate (ADEQUATE) Polychromasia Present Anisocytosis Present Macrocytosis Present Sodium Level 139 mmol/L (136-145) Potassium Level 4.3 mmol/L (3.5-5.1) Chloride Level 100 mmol/L (98-107) Carbon Dioxide Level 28 mmol/L (21-32) Anion Gap 11 (6-14) Blood Urea Nitrogen 102 mg/dL (7-20) Creatinine 2.5 mg/dL (0.6-1.0) Estimated GFR (Cockcroft-Gault) 18.3 Glucose Level 100 mg/dL (70-99) Calcium Level 8.6 mg/dL (8.5-10.1) I have reviewed the following AM KUAditya PND Problem List Problems Medical Problems: (1) RUFINO (acute kidney injury) Status: Acute (2) Dehydration Status: Acute (3) Encephalopathy Status: Acute (4) Small bowel obstruction Status: Acute Assessment/Plan SBO await KUB this AM HUSSEIN WEINER MD Jun 23, 2019 08:13
[2019-06-23 11:00] VITALS: BP 95/59
[2019-06-23] MEDS ORDERED: IV NORMAL SALINE 1000ML BAG 1,000 ML IV ONE (11:45)
--- NOTE | 2019-06-23 11:55 | PDOC ---
PROGRESS NOTES Chief Complaint Chief Complaint acute abd pain small bowel obstruction, lactate elevated from this metastatic breast cancer malnutrition acute on chronic CKD 4 cognitive decline, dementia Hx, chronic History of Present Illness History of Present Illness a lot of output from NG tube, still a lot of fluid of otu tube SBFT today up to chair as able lactic acidosis noted l cont IV Fluid renal fxn about the same, BUN up, Vitals Vitals Vital Signs Date Time Temp Pulse Resp B/P (MAP) Pulse Ox O2 Delivery O2 Flow Rate FiO2 06/23/19 08:00 Room Air 06/23/19 07:00 98.1 76 111/67 (82) 95 98.1 06/23/19 03:00 18 Physical Exam General: Alert, No acute distress Heart: Regular rate, Normal S2 Lungs: Clear Abdomen: Soft Extremities: No clubbing, No cyanosis Skin: No breakdown Labs LABS Laboratory Tests Test 06/23/19 06:11 White Blood Count 10.9 x10^3/uL (4.0-11.0) Red Blood Count 2.79 x10^6/uL (3.50-5.40) Hemoglobin 10.1 g/dL (12.0-15.5) Hematocrit 29.5 % (36.0-47.0) Mean Corpuscular Volume 106 fL (79-100) Mean Corpuscular Hemoglobin 36 pg (25-35) Mean Corpuscular Hemoglobin Concent 34 g/dL (31-37) Red Cell Distribution Width 21.0 % (11.5-14.5) Platelet Count 185 x10^3/uL (140-400) Neutrophils (%) (Auto) 79 % (31-73) Lymphocytes (%) (Auto) 11 % (24-48) Monocytes (%) (Auto) 10 % (0-9) Eosinophils (%) (Auto) 0 % (0-3) Basophils (%) (Auto) 0 % (0-3) Neutrophils # (Auto) 8.6 x10^3/uL (1.8-7.7) Lymphocytes # (Auto) 1.2 x10^3/uL (1.0-4.8) Monocytes # (Auto) 1.1 x10^3/uL (0.0-1.1) Eosinophils # (Auto) 0.0 x10^3/uL (0.0-0.7) Basophils # (Auto) 0.0 x10^3/uL (0.0-0.2) Platelet Estimate Adequate (ADEQUATE) Polychromasia Present Anisocytosis Present Macrocytosis Present Sodium Level 139 mmol/L (136-145) Potassium Level 4.3 mmol/L (3.5-5.1) Chloride Level 100 mmol/L (98-107) Carbon Dioxide Level 28 mmol/L (21-32) Anion Gap 11 (6-14) Blood Urea Nitrogen 102 mg/dL (7-20) Creatinine 2.5 mg/dL (0.6-1.0) Estimated GFR (Cockcroft-Gault) 18.3 Glucose Level 100 mg/dL (70-99) Calcium Level 8.6 mg/dL (8.5-10.1) Assessment and Plan Assessmemt and Plan Problems Medical Problems: (1) RUFINO (acute kidney injury) Status: Acute (2) Dehydration Status: Acute (3) Encephalopathy Status: Acute (4) Small bowel obstruction Status: Acute Comment Review of Relevant I have reviewed the following items lola (where applicable) has been applied. Labs Laboratory Tests Test 06/21/19 12:30 06/22/19 05:10 06/23/19 06:11 Nasal Screen MRSA (PCR) Negative (Negative) Sodium Level 139 mmol/L (136-145) 139 mmol/L (136-145) Potassium Level 4.4 mmol/L (3.5-5.1) 4.3 mmol/L (3.5-5.1) Chloride Level 100 mmol/L (98-107) 100 mmol/L (98-107) Carbon Dioxide Level 27 mmol/L (21-32) 28 mmol/L (21-32) Anion Gap 12 (6-14) 11 (6-14) Blood Urea Nitrogen 94 mg/dL (7-20) 102 mg/dL (7-20) Creatinine 2.7 mg/dL (0.6-1.0) 2.5 mg/dL (0.6-1.0) Estimated GFR (Cockcroft-Gault) 16.7 18.3 Glucose Level 136 mg/dL (70-99) 100 mg/dL (70-99) Calcium Level 8.8 mg/dL (8.5-10.1) 8.6 mg/dL (8.5-10.1) White Blood Count 10.9 x10^3/uL (4.0-11.0) Red Blood Count 2.79 x10^6/uL (3.50-5.40) Hemoglobin 10.1 g/dL (12.0-15.5) Hematocrit 29.5 % (36.0-47.0) Mean Corpuscular Volume 106 fL (79-100) Mean Corpuscular Hemoglobin 36 pg (25-35) Mean Corpuscular Hemoglobin Concent 34 g/dL (31-37) Red Cell Distribution Width 21.0 % (11.5-14.5) Platelet Count 185 x10^3/uL (140-400) Neutrophils (%) (Auto) 79 % (31-73) Lymphocytes (%) (Auto) 11 % (24-48) Monocytes (%) (Auto) 10 % (0-9) Eosinophils (%) (Auto) 0 % (0-3) Basophils (%) (Auto) 0 % (0-3) Neutrophils # (Auto) 8.6 x10^3/uL (1.8-7.7) Lymphocytes # (Auto) 1.2 x10^3/uL (1.0-4.8) Monocytes # (Auto) 1.1 x10^3/uL (0.0-1.1) Eosinophils # (Auto) 0.0 x10^3/uL (0.0-0.7) Basophils # (Auto) 0.0 x10^3/uL (0.0-0.2) Platelet Estimate Adequate (ADEQUATE) Polychromasia Present Anisocytosis Present Macrocytosis Present Laboratory Tests Test 06/23/19 06:11 White Blood Count 10.9 x10^3/uL (4.0-11.0) Red Blood Count 2.79 x10^6/uL (3.50-5.40) Hemoglobin 10.1 g/dL (12.0-15.5) Hematocrit 29.5 % (36.0-47.0) Mean Corpuscular Volume 106 fL (79-100) Mean Corpuscular Hemoglobin 36 pg (25-35) Mean Corpuscular Hemoglobin Concent 34 g/dL (31-37) Red Cell Distribution Width 21.0 % (11.5-14.5) Platelet Count 185 x10^3/uL (140-400) Neutrophils (%) (Auto) 79 % (31-73) Lymphocytes (%) (Auto) 11 % (24-48) Monocytes (%) (Auto) 10 % (0-9) Eosinophils (%) (Auto) 0 % (0-3) Basophils (%) (Auto) 0 % (0-3) Neutrophils # (Auto) 8.6 x10^3/uL (1.8-7.7) Lymphocytes # (Auto) 1.2 x10^3/uL (1.0-4.8) Monocytes # (Auto) 1.1 x10^3/uL (0.0-1.1) Eosinophils # (Auto) 0.0 x10^3/uL (0.0-0.7) Basophils # (Auto) 0.0 x10^3/uL (0.0-0.2) Platelet Estimate Adequate (ADEQUATE) Polychromasia Present Anisocytosis Present Macrocytosis Present Sodium Level 139 mmol/L (136-145) Potassium Level 4.3 mmol/L (3.5-5.1) Chloride Level 100 mmol/L (98-107) Carbon Dioxide Level 28 mmol/L (21-32) Anion Gap 11 (6-14) Blood Urea Nitrogen 102 mg/dL (7-20) Creatinine 2.5 mg/dL (0.6-1.0) Estimated GFR (Cockcroft-Gault) 18.3 Glucose Level 100 mg/dL (70-99) Calcium Level 8.6 mg/dL (8.5-10.1) Microbiology 06/20/19 Urine Culture - Final, Complete 06/20/19 Urine Culture Result 1 (YOBANY) - Final, Complete Medications Current Medications Potassium Chloride/Sodium Chloride 1,000 ml @ 125 mls/hr Q8H IV Last administered on 06/20/19at 07:57; Start 06/19/19 at 22:15; Stop 06/20/19 at 08:50; Status DC Throat Lozenges (Chloraseptic) 1 spray PRN Q2HR PRN PO SORE THROAT, 2ND CHOICE; Start 06/19/19 at 22:15 Throat Lozenges (Cepacol Sore Throat Lozenge) 1 juan PRN Q2HRS PRN PO SORE THROAT, 1ST CHOICE; Start 06/19/19 at 22:15 Sodium Chloride 250 ml @ 250 mls/hr 1X ONCE IV Last administered on 06/20/19at 03:24; Start 06/20/19 at 02:45; Stop 06/20/19 at 03:45; Status DC Ondansetron HCl (Zofran) 4 mg PRN Q6HRS PRN IV NAUSEA/VOMITING Last administer ed on 06/22/19at 15:39; Start 06/20/19 at 08:00 Buspirone HCl (Buspar) 5 mg QID PO ; Start 06/20/19 at 09:00 Donepezil HCl (Aricept) 10 mg DAILY PO ; Start 06/20/19 at 09:00 Latanoprost (Xalatan) 1 drop QHS OU Last administered on 06/22/19at 21:13; Start 06/20/19 at 21:00 Levothyroxine Sodium (Synthroid) 50 mcg DAILYAC PO ; Start 06/20/19 at 09:00; Stop 06/22/19 at 15:39; Status DC Lorazepam (Ativan) 0.5 mg PRN Q4HRS PRN PO ANXIETY / AGITATION; Start 06/20/19 at 08:45 Potassium Chloride (Klor-Con) 10 meq DAILY PO ; Start 06/20/19 at 09:00 Non-Formulary Medication (Melatonin ) 1 tab QHS PO ; Start 06/20/19 at 21:00; Status UNV Pantoprazole Sodium (Protonix) 40 mg DAILYAC PO ; Start 06/20/19 at 09:00; Stop 06/21/19 at 22:23; Status DC Ondansetron HCl (Zofran Odt) 4 mg PRN Q6HRS PRN PO NAUSEA/VOMITING Last administered on 06/22/19at 05:57; Start 06/20/19 at 09:00 Amino Acids/ Glycerin/ Electrolytes 1,000 ml @ 100 mls/hr Q10H IV Last administered on 06/23/19at 05:43; Start 06/20/19 at 09:00 Sodium Chloride 1,000 ml @ 1,000 mls/hr 1X ONCE IV Last administered on 06/20/19at 13:50; Start 06/20/19 at 13:30; Stop 06/20/19 at 14:29; Status DC Methylprednisolone Sodium Succinate (SOLU-Medrol 125MG VIAL) 125 mg 1X ONCE IV Last administered on 06/21/19at 17:15; Start 06/21/19 at 18:00; Stop 06/21/19 at 18:01; Status DC Methylprednisolone Sodium Succinate (SOLU-Medrol 125MG VIAL) 125 mg 1X ONCE IV Last administered on 06/22/19at 01:38; Start 06/22/19 at 00:00; Stop 06/22/19 at 00:01; Status DC Methylprednisolone Sodium Succinate (SOLU-Medrol 125MG VIAL) 125 mg 1X ONCE IV Last administered on 06/22/19at 05:43; Start 06/22/19 at 06:00; Stop 06/22/19 at 06:01; Status DC Diphenhydramine HCl (Benadryl) 50 mg 1X ONCE IVP Last administered on 06/22/19at 07:46; Start 06/22/19 at 07:00; Stop 06/22/19 at 07:01; Status DC Sodium Chloride 500 ml @ 500 mls/hr 1X ONCE IV Last administered on 06/21/19at 15:38; Start 06/21/19 at 15:30; Stop 06/21/19 at 16:29; Status DC Levofloxacin (Levaquin) 250 mg DAILY06 PO ; Start 06/22/19 at 06:00; Stop 06/21/19 at 22:23; Status DC Levofloxacin/ Dextrose 50 ml @ 50 mls/hr Q24H IV ; Start 06/21/19 at 22:30; Sto p 06/21/19 at 22:34; Status DC Pantoprazole Sodium (PROTONIX VIAL for IV PUSH) 40 mg DAILYAC IVP Last administered on 06/23/19at 07:57; Start 06/22/19 at 07:30 Levofloxacin/ Dextrose 50 ml @ 50 mls/hr Q24H IV Last administered on 06/22/19at 05:43; Start 06/22/19 at 06:00; Stop 06/22/19 at 13:57; Status DC Iohexol (Omnipaque 300 Mg/ml) 400 ml 1X ONCE PO ; Start 06/22/19 at 07:45; Stop 06/22/19 at 07:50; Status DC Info (CONTRAST GIVEN -- Rx MONITORING) 1 each PRN DAILY PRN MC SEE COMMENTS; Start 06/22/19 at 08:00; Stop 06/24/19 at 07:59 Sodium Chloride 1,000 ml @ 100 mls/hr 1X ONCE IV Last administered on 06/22/19at 11:40; Start 06/22/19 at 11:15; Stop 06/22/19 at 21:14; Status DC Levothyroxine Sodium 25 mcg/ Sodium Chloride 5 ml @ 100 mls/hr Q72H IVP ; Start 06/26/19 at 06:00 Sodium Chloride 1,000 ml @ 100 mls/hr 1X ONCE IV ; Start 06/23/19 at 11:45; Stop 06/23/19 at 21:44 Active Scripts Active Reported Aspirin 81 Mg Tab.chew 1 Tab PO DAILY Ultram (Tramadol Hcl) 50 Mg Tablet 50 Mg PO Q4HRS PRN Potassium Chloride 10 Meq Tab.sr.24h 10 Meq PO DAILY Namenda (Memantine Hcl) 10 Mg Tablet 10 Mg PO BID Zofran (Ondansetron Hcl) 4 Mg Tablet 1 Tab PO PRN Q6-8HRS Imodium A-D (Loperamide Hcl) 1 Mg/7.5 Ml Liquid 1 Mg PO PRN PRN Omeprazole 20 Mg Tablet.dr 1 Tab PO DAILY Acetaminophen 325 Mg Tablet 325 Mg PO Q4HRS Donepezil Hcl 10 Mg Tablet 1 Tab PO DAILY Xeloda (Capecitabine) 500 Mg Tablet 2,000 Mg PO Q12HR Buspirone Hcl 5 Mg Tablet 1 Tab PO QID Melatonin 3 Mg Tablet 1 Tab PO QHS Levothyroxine Sodium 50 Mcg Tablet 50 Mcg PO DAILYAC Cerefolin Nac Caplet (Lmfol Ca/Acetyl/Mb12/Algal Oil) 1 Each Tablet 1 Each PO D AILY Xalatan (Latanoprost) 2.5 Ml Drops 1 Drop EACHEYE QHS Magnesium Oxide 400 Mg Tablet 1 Tab PO TID Pepcid (Famotidine) 20 Mg Tablet 20 Mg PO DAILY Ativan (Lorazepam) 0.5 Mg Tablet 0.5 Mg PO Q4HRS PRN Vitals/I & O Vital Sign - Last 24 Hours 06/22/19 06/22/19 06/22/19 06/22/19 15:00 19:00 19:50 23:00 Temp 98.4 97.7 97.4 98.4 97.7 97.4 Pulse 91 88 85 Resp 18 20 18 B/P (MAP) 110/52 (71) 134/68 (90) 132/73 (92) Pulse Ox 100 93 93 O2 Delivery Room Air Room Air Room Air Room Air 06/23/19 06/23/19 06/23/19 03:00 07:00 08:00 Temp 97.9 98.1 97.9 98.1 Pulse 76 76 Resp 18 B/P (MAP) 149/80 (103) 111/67 (82) Pulse Ox 94 95 O2 Delivery Room Air Room Air Room Air Intake and Output 06/22/19 06/22/19 06/23/19 15:00 23:00 07:00 Intake Total 0 ml 1173 ml 1520 ml Output Total 1550 ml Balance 0 ml -377 ml 1520 ml Nutrition Consultation Dietary Evaluation: Recommendations by RD: PPN/TPN Comments: continue with PPN until able to advance diet Expected Outcomes/Goals: to meet > 75% est nutr needs via po intake Malnutrition Findings: Muscle Mass (Severe): Severe Depletion Food and Nutrition Intake (Sev: <50% est energy req 5days Body Fat Depletion (Non Severe: Mod to Severe Weight Status: Underweight ZUHAIR RIVERA MD Jun 23, 2019 11:55
--- NOTE | 2019-06-23 12:02 | PDOC ---
Renal-Progress Notes Subjective Notes Notes NO NEW COMPLAINTS History of Present Illness Hx of present illness BOWEL REST ONGOING Vitals Vitals Vital Signs Date Time Temp Pulse Resp B/P (MAP) Pulse Ox O2 Delivery O2 Flow Rate FiO2 06/23/19 08:00 Room Air 06/23/19 07:00 98.1 76 111/67 (82) 95 98.1 06/23/19 03:00 18 Weight Weight [ ] I.O. Intake and Output Intake and Output 06/23/19 07:00 Intake Total 2693 ml Output Total 1550 ml Balance 1143 ml Intake Oral 0 ml IV Total 1733 ml Other 960 ml Output Urine Total 200 ml Gastric Drainage Total 1350 ml # Voids 1 Labs Labs Laboratory Tests Test 06/23/19 06:11 White Blood Count 10.9 x10^3/uL (4.0-11.0) Red Blood Count 2.79 x10^6/uL (3.50-5.40) Hemoglobin 10.1 g/dL (12.0-15.5) Hematocrit 29.5 % (36.0-47.0) Mean Corpuscular Volume 106 fL (79-100) Mean Corpuscular Hemoglobin 36 pg (25-35) Mean Corpuscular Hemoglobin Concent 34 g/dL (31-37) Red Cell Distribution Width 21.0 % (11.5-14.5) Platelet Count 185 x10^3/uL (140-400) Neutrophils (%) (Auto) 79 % (31-73) Lymphocytes (%) (Auto) 11 % (24-48) Monocytes (%) (Auto) 10 % (0-9) Eosinophils (%) (Auto) 0 % (0-3) Basophils (%) (Auto) 0 % (0-3) Neutrophils # (Auto) 8.6 x10^3/uL (1.8-7.7) Lymphocytes # (Auto) 1.2 x10^3/uL (1.0-4.8) Monocytes # (Auto) 1.1 x10^3/uL (0.0-1.1) Eosinophils # (Auto) 0.0 x10^3/uL (0.0-0.7) Basophils # (Auto) 0.0 x10^3/uL (0.0-0.2) Platelet Estimate Adequate (ADEQUATE) Polychromasia Present Anisocytosis Present Macrocytosis Present Sodium Level 139 mmol/L (136-145) Potassium Level 4.3 mmol/L (3.5-5.1) Chloride Level 100 mmol/L (98-107) Carbon Dioxide Level 28 mmol/L (21-32) Anion Gap 11 (6-14) Blood Urea Nitrogen 102 mg/dL (7-20) Creatinine 2.5 mg/dL (0.6-1.0) Estimated GFR (Cockcroft-Gault) 18.3 Glucose Level 100 mg/dL (70-99) Calcium Level 8.6 mg/dL (8.5-10.1) Micro Micro Microbiology 06/20/19 Urine Culture - Final, Complete 06/20/19 Urine Culture Result 1 (YOBANY) - Final, Complete Physical Exam Musculoskeletal: Osteoarthritis Assessment Assessment IMP DEHYDRATION RUFINO-ATN-CR OF 2.5 ENCEPHALOPATHY DEMENTIA SBO UTI LEFT RENAL ATROPHY PLAN PPN IVF'S SURGERY FOLLOWING ANTIBIOTICS MAY HAVE SOME CKD-BASELINE UNKNOWN WILL FOLLOW DANIEL AUSTIN MD Jun 23, 2019 12:02
--- NOTE | 2019-06-23 13:10 | RAD ---
AP view of the abdomen Clinical indications: Follow-up of small bowel obstruction. FINDINGS: Degenerative contrast is still present within dilated small bowel loops. Bowel loop dilatation is unchanged. NG tube tip is seen within the fundus of the stomach. IMPRESSION: Unchanged small bowel obstruction. Electronically signed by: Suleman Marie MD (06/23/2019 1:07 PM) [id number]
--- NOTE | 2019-06-23 13:36 | NUR ---
SS following up with discharge planning. SS phoned and faxed clinical updates to [facility] and [facility], ; fax [phone]. Pt is a LTC resident from there facility and is able to return when medically stable for discharge. SS will continue to follow for discharge planning.
[2019-06-23 15:00] VITALS: BP 112/56
--- NOTE | 2019-06-23 16:42 | PDOC ---
Provider Note Provider Note SURG spoke with her DPOA if plain film in the AM does not show improvement, consider exploration HUSSEIN WEINER MD Jun 23, 2019 16:42
[2019-06-23 19:45] VITALS: BP 98/50
[2019-06-23] MEDS: LATANOPROST 0.005% OPHTH SOLUTION 2.5ML BOTTLE. OU SCH (22:00)
[2019-06-23 23:54] VITALS: BP 95/42
[2019-06-24] VITALS (10 sets, daily range): BP systolic 91–114; BP diastolic 54–68
[2019-06-24] MEDS: AMINO AC 3%/ELECTROLYTE/GLYCER 1,000 ML IV SCH ×2 (02:17→18:18)
[2019-06-24] MEDS: PANTOPRAZOLE IV PUSH 40 MG VIAL. IVP SCH (05:36)
[2019-06-24 06:22] LABS: CREATININE 1.7 mg/dL (0.6-1.0); GFR 28.6; POTASSIUM 4.2 mmol/L (3.5-5.1)
[2019-06-24] MEDS: POTASSIUM CHLORIDE 10 MEQ TABLET.ER. PO SCH (09:00)
[2019-06-24] MEDS: DONEPEZIL HCL 10 MG TABLET. PO SCH (09:00)
[2019-06-24] MEDS: busPIRone 5 MG TABLET. PO SCH ×4 (09:00→21:00)
--- NOTE | 2019-06-24 09:14 | RAD ---
Single view of the abdomen 06/24/2019 INDICATION: Small bowel obstruction COMPARISON STUDY: Persistent dilated loops of central small bowel containing relatively dilute enteric contrast. Previously seen radiopaque tablets in the right upper abdomen and pelvis are also unchanged since yesterday's study. No gross pneumoperitoneum is identified, though exam is limited for this purpose. Scoliotic and degenerative changes of the lumbosacral spine noted. IMPRESSION: Grossly unchanged appearance of the abdomen including dilated loops of central small bowel containing dilute enteric contrast. Electronically signed by: Steven Mathew MD (06/24/2019 9:11 AM) [id number]
--- NOTE | 2019-06-24 09:24 | PDOC ---
SURGICAL PROGRESS NOTE Subjective reports flatus--however unsure how accurate she is no bowel movements some side pain Vital Signs Vital Signs Date Time Temp Pulse Resp B/P (MAP) Pulse Ox O2 Delivery O2 Flow Rate FiO2 06/24/19 07:00 97.6 73 17 105/59 (74) 98 Room Air 97.6 I&O Intake and Output 06/24/19 07:00 Intake Total 0 ml Output Total 2500 ml Balance -2500 ml Intake Oral 0 ml Output Urine Total 750 ml Gastric Drainage Total 1750 ml # Voids 3 General: Alert, Cooperative, No acute distress HEENT: Other (NG in place) Abdomen: Soft, Other (mild ttp right abdomen ) Labs Laboratory Tests Test 06/23/19 06:11 06/24/19 05:00 White Blood Count 10.9 x10^3/uL (4.0-11.0) Red Blood Count 2.79 x10^6/uL (3.50-5.40) Hemoglobin 10.1 g/dL (12.0-15.5) Hematocrit 29.5 % (36.0-47.0) Mean Corpuscular Volume 106 fL (79-100) Mean Corpuscular Hemoglobin 36 pg (25-35) Mean Corpuscular Hemoglobin Concent 34 g/dL (31-37) Red Cell Distribution Width 21.0 % (11.5-14.5) Platelet Count 185 x10^3/uL (140-400) Neutrophils (%) (Auto) 79 % (31-73) Lymphocytes (%) (Auto) 11 % (24-48) Monocytes (%) (Auto) 10 % (0-9) Eosinophils (%) (Auto) 0 % (0-3) Basophils (%) (Auto) 0 % (0-3) Neutrophils # (Auto) 8.6 x10^3/uL (1.8-7.7) Lymphocytes # (Auto) 1.2 x10^3/uL (1.0-4.8) Monocytes # (Auto) 1.1 x10^3/uL (0.0-1.1) Eosinophils # (Auto) 0.0 x10^3/uL (0.0-0.7) Basophils # (Auto) 0.0 x10^3/uL (0.0-0.2) Platelet Estimate Adequate (ADEQUATE) Polychromasia Present Anisocytosis Present Macrocytosis Present Sodium Level 139 mmol/L (136-145) 138 mmol/L (136-145) Potassium Level 4.3 mmol/L (3.5-5.1) 4.2 mmol/L (3.5-5.1) Chloride Level 100 mmol/L (98-107) 101 mmol/L (98-107) Carbon Dioxide Level 28 mmol/L (21-32) 27 mmol/L (21-32) Anion Gap 11 (6-14) 10 (6-14) Blood Urea Nitrogen 102 mg/dL (7-20) 89 mg/dL (7-20) Creatinine 2.5 mg/dL (0.6-1.0) 1.7 mg/dL (0.6-1.0) Estimated GFR (Cockcroft-Gault) 18.3 28.6 Glucose Level 100 mg/dL (70-99) 96 mg/dL (70-99) Calcium Level 8.6 mg/dL (8.5-10.1) 8.0 mg/dL (8.5-10.1) Laboratory Tests Test 06/24/19 05:00 Sodium Level 138 mmol/L (136-145) Potassium Level 4.2 mmol/L (3.5-5.1) Chloride Level 101 mmol/L (98-107) Carbon Dioxide Level 27 mmol/L (21-32) Anion Gap 10 (6-14) Blood Urea Nitrogen 89 mg/dL (7-20) Creatinine 1.7 mg/dL (0.6-1.0) Estimated GFR (Cockcroft-Gault) 28.6 Glucose Level 96 mg/dL (70-99) Calcium Level 8.0 mg/dL (8.5-10.1) Problem List Problems Medical Problems: (1) RUFINO (acute kidney injury) Status: Acute (2) Dehydration Status: Acute (3) Encephalopathy Status: Acute (4) Small bowel obstruction Status: Acute Assessment/Plan SBO imaging pending possible or today MOLLY HURT APRN Jun 24, 2019 09:24
[2019-06-24] MEDS ORDERED: PROPOFOL 20 ML IV ONE (09:27)
[2019-06-24] MEDS ORDERED: LIDOCAINE 2% PF 5 ML VIAL. ONE (09:27)
[2019-06-24] MEDS ORDERED: fentaNYL PF VIAL 100 MCG/2 ML VIAL ONE ×2 (09:28→13:08)
[2019-06-24] MEDS ORDERED: ROCURONIUM 50 MG/5 ML VIAL. ONE (09:28)
--- NOTE | 2019-06-24 09:35 | NUR ---
Pt. down to OR via bed per transportation.
[2019-06-24] MEDS ORDERED: MORPHINE SULFATE 2 MG/ML VIAL. IV PRN (10:00)
[2019-06-24] MEDS ORDERED: HYDROmorphone 2 MG/ML VIAL IV PRN (10:00)
[2019-06-24] MEDS ORDERED: IV RINGERS,LACTATED 1000ML 1,000 ML IV SCH (10:00)
[2019-06-24] MEDS ORDERED: fentaNYL PF VIAL 100 MCG/2 ML VIAL IV PRN (10:00)
[2019-06-24] MEDS ORDERED: BUPIVACAINE-EPI 0.5%-1:200000 MPF 30 ML VIAL. INJ ONE (10:30)
[2019-06-24] MEDS: IV NORMAL SALINE 1000ML BAG 1,000 ML IV SCH ×3 (10:58→14:16)
[2019-06-24] MEDS ORDERED: DESFLURANE 61 TO 120 MINUTES IH ONE (11:14)
[2019-06-24] MEDS ORDERED: ONDANSETRON PF 4 MG/2 ML VIAL. ONE ×2 (11:16→11:38)
[2019-06-24] MEDS ORDERED: DEXAMETHASONE SOD PHOS 4 MG/ML VIAL ONE (11:17)
[2019-06-24] MEDS ORDERED: PHENYLEPHRINE in 0.9% NACL PF 1 MG/10 ML SYRINGE. IV ONE (11:21)
[2019-06-24] MEDS ORDERED: ePHEDrine PF IN SALINE 50 MG/10 ML SYRINGE. IV ONE (11:26)
--- NOTE | 2019-06-24 11:26 | PDOC ---
PROGRESS NOTES Chief Complaint Chief Complaint acute abd pain small bowel obstruction, lactate elevated from this metastatic breast cancer malnutrition acute on chronic CKD 4 cognitive decline, dementia Hx, chronic History of Present Illness History of Present Illness decreased output from NG tube, still a lot of fluid of otu tube KUB today Grossly unchanged appearance of the abdomen including dilated loops of central small bowel containing dilute enteric contrast. up to chair as able lactic acidosis noted l cont IV Fluid renal fxn about the same, BUN up, cont current Vitals Vitals Vital Signs Date Time Temp Pulse Resp B/P (MAP) Pulse Ox O2 Delivery O2 Flow Rate FiO2 06/24/19 07:45 Room Air 06/24/19 07:00 97.6 73 17 105/59 (74) 98 97.6 Physical Exam General: Alert, Cooperative, No acute distress Heart: Regular rate, Normal S2 Lungs: Clear Abdomen: Soft, Other (mild ttp right abdomen ) Extremities: No clubbing, No cyanosis Skin: No breakdown Labs LABS Laboratory Tests Test 06/24/19 05:00 Sodium Level 138 mmol/L (136-145) Potassium Level 4.2 mmol/L (3.5-5.1) Chloride Level 101 mmol/L (98-107) Carbon Dioxide Level 27 mmol/L (21-32) Anion Gap 10 (6-14) Blood Urea Nitrogen 89 mg/dL (7-20) Creatinine 1.7 mg/dL (0.6-1.0) Estimated GFR (Cockcroft-Gault) 28.6 Glucose Level 96 mg/dL (70-99) Calcium Level 8.0 mg/dL (8.5-10.1) Review of Systems Review of Systems pain is better, has had flatus, no event in decent spirits Assessment and Plan Assessmemt and Plan Problems Medical Problems: (1) RUFINO (acute kidney injury) Status: Acute (2) Dehydration Status: Acute (3) Encephalopathy Status: Acute (4) Small bowel obstruction Status: Acute Comment Review of Relevant I have reviewed the following items lola (where applicable) has been applied. Labs Laboratory Tests Test 06/23/19 06:11 06/24/19 05:00 White Blood Count 10.9 x10^3/uL (4.0-11.0) Red Blood Count 2.79 x10^6/uL (3.50-5.40) Hemoglobin 10.1 g/dL (12.0-15.5) Hematocrit 29.5 % (36.0-47.0) Mean Corpuscular Volume 106 fL (79-100) Mean Corpuscular Hemoglobin 36 pg (25-35) Mean Corpuscular Hemoglobin Concent 34 g/dL (31-37) Red Cell Distribution Width 21.0 % (11.5-14.5) Platelet Count 185 x10^3/uL (140-400) Neutrophils (%) (Auto) 79 % (31-73) Lymphocytes (%) (Auto) 11 % (24-48) Monocytes (%) (Auto) 10 % (0-9) Eosinophils (%) (Auto) 0 % (0-3) Basophils (%) (Auto) 0 % (0-3) Neutrophils # (Auto) 8.6 x10^3/uL (1.8-7.7) Lymphocytes # (Auto) 1.2 x10^3/uL (1.0-4.8) Monocytes # (Auto) 1.1 x10^3/uL (0.0-1.1) Eosinophils # (Auto) 0.0 x10^3/uL (0.0-0.7) Basophils # (Auto) 0.0 x10^3/uL (0.0-0.2) Platelet Estimate Adequate (ADEQUATE) Polychromasia Present Anisocytosis Present Macrocytosis Present Sodium Level 139 mmol/L (136-145) 138 mmol/L (136-145) Potassium Level 4.3 mmol/L (3.5-5.1) 4.2 mmol/L (3.5-5.1) Chloride Level 100 mmol/L (98-107) 101 mmol/L (98-107) Carbon Dioxide Level 28 mmol/L (21-32) 27 mmol/L (21-32) Anion Gap 11 (6-14) 10 (6-14) Blood Urea Nitrogen 102 mg/dL (7-20) 89 mg/dL (7-20) Creatinine 2.5 mg/dL (0.6-1.0) 1.7 mg/dL (0.6-1.0) Estimated GFR (Cockcroft-Gault) 18.3 28.6 Glucose Level 100 mg/dL (70-99) 96 mg/dL (70-99) Calcium Level 8.6 mg/dL (8.5-10.1) 8.0 mg/dL (8.5-10.1) Laboratory Tests Test 06/24/19 05:00 Sodium Level 138 mmol/L (136-145) Potassium Level 4.2 mmol/L (3.5-5.1) Chloride Level 101 mmol/L (98-107) Carbon Dioxide Level 27 mmol/L (21-32) Anion Gap 10 (6-14) Blood Urea Nitrogen 89 mg/dL (7-20) Creatinine 1.7 mg/dL (0.6-1.0) Estimated GFR (Cockcroft-Gault) 28.6 Glucose Level 96 mg/dL (70-99) Calcium Level 8.0 mg/dL (8.5-10.1) Microbiology 06/20/19 Urine Culture - Final, Complete 06/20/19 Urine Culture Result 1 (YOBANY) - Final, Complete Medications Current Medications Potassium Chloride/Sodium Chloride 1,000 ml @ 125 mls/hr Q8H IV Last administered on 06/20/19at 07:57; Start 06/19/19 at 22:15; Stop 06/20/19 at 08:50; Status DC Throat Lozenges (Chloraseptic) 1 spray PRN Q2HR PRN PO SORE THROAT, 2ND CHOICE; Start 06/19/19 at 22:15 Throat Lozenges (Cepacol Sore Throat Lozenge) 1 juan PRN Q2HRS PRN PO SORE THROAT, 1ST CHOICE; Start 06/19/19 at 22:15 Sodium Chloride 250 ml @ 250 mls/hr 1X ONCE IV Last administered on 06/20/19at 03:24; Start 06/20/19 at 02:45; Stop 06/20/19 at 03:45; Status DC Ondansetron HCl (Zofran) 4 mg PRN Q6HRS PRN IV NAUSEA/VOMITING Last administered on 06/22/19at 15:39; Start 06/20/19 at 08:00 Buspirone HCl (Buspar) 5 mg QID PO ; Start 06/20/19 at 09:00 Donepezil HCl (Aricept) 10 mg DAILY PO ; Start 06/20/19 at 09:00 Latanoprost (Xalatan) 1 drop QHS OU Last administered on 06/23/19at 22:00; Start 06/20/19 at 21:00 Levothyroxine Sodium (Synthroid) 50 mcg DAILYAC PO ; Start 06/20/19 at 09:00; Stop 06/22/19 at 15:39; Status DC Lorazepam (Ativan) 0.5 mg PRN Q4HRS PRN PO ANXIETY / AGITATION; Start 06/20/19 at 08:45 Potassium Chloride (Klor-Con) 10 meq DAILY PO ; Start 06/20/19 at 09:00 Non-Formulary Medication (Melatonin ) 1 tab QHS PO ; Start 06/20/19 at 21:00; Status UNV Pantoprazole Sodium (Protonix) 40 mg DAILYAC PO ; Start 06/20/19 at 09:00; Stop 06/21/19 at 22:23; Status DC Ondansetron HCl (Zofran Odt) 4 mg PRN Q6HRS PRN PO NAUSEA/VOMITING Last administered on 06/22/19at 05:57; Start 06/20/19 at 09:00 Amino Acids/ Glycerin/ Electrolytes 1,000 ml @ 100 mls/hr Q10H IV Last administered on 06/24/19at 02:17; Start 06/20/19 at 09:00 Sodium Chloride 1,000 ml @ 1,000 mls/hr 1X ONCE IV Last administered on 06/20/19at 13:50; Start 06/20/19 at 13:30; Stop 06/20/19 at 14:29; Status DC Methylprednisolone Sodium Succinate (SOLU-Medrol 125MG VIAL) 125 mg 1X ONCE IV Last administered on 06/21/19at 17:15; Start 06/21/19 at 18:00; Stop 06/21/19 at 18:01; Status DC Methylprednisolone Sodium Succinate (SOLU-Medrol 125MG VIAL) 125 mg 1X ONCE IV Last administered on 06/22/19at 01:38; Start 06/22/19 at 00:00; Stop 06/22/19 at 00:01; Status DC Methylprednisolone Sodium Succinate (SOLU-Medrol 125MG VIAL) 125 mg 1X ONCE IV Last administered on 06/22/19at 05:43; Start 06/22/19 at 06:00; Stop 06/22/19 at 06:01; Status DC Diphenhydramine HCl (Benadryl) 50 mg 1X ONCE IVP Last administered on 06/22/19at 07:46; Start 06/22/19 at 07:00; Stop 06/22/19 at 07:01; Status DC Sodium Chloride 500 ml @ 500 mls/hr 1X ONCE IV Last administered on 06/21/19at 15:38; Start 06/21/19 at 15:30; Stop 06/21/19 at 16:29; Status DC Levofloxacin (Levaquin) 250 mg DAILY06 PO ; Start 06/22/19 at 06:00; Stop 06/21/19 at 22:23; Status DC Levofloxacin/ Dextrose 50 ml @ 50 mls/hr Q24H IV ; Start 06/21/19 at 22:30; Stop 06/21/19 at 22:34; Status DC Pantoprazole Sodium (PROTONIX VIAL for IV PUSH) 40 mg DAILYAC IVP Last administered on 06/24/19at 05:36; Start 06/22/19 at 07:30 Levofloxacin/ Dextrose 50 ml @ 50 mls/hr Q24H IV Last administered on 06/22/19at 05:43; Start 06/22/19 at 06:00; Stop 06/22/19 at 13:57; Status DC Iohexol (Omnipaque 300 Mg/ml) 400 ml 1X ONCE PO ; Start 06/22/19 at 07:45; Stop 06/22/19 at 07:50; Status DC Info (CONTRAST GIVEN -- Rx MONITORING) 1 each PRN DAILY PRN MC SEE COMMENTS; Start 06/22/19 at 08:00; Stop 06/24/19 at 07:59; Status DC Sodium Chloride 1,000 ml @ 100 mls/hr 1X ONCE IV Last administered on 06/22/19at 11:40; Start 06/22/19 at 11:15; Stop 06/22/19 at 21:14; Status DC Levothyroxine Sodium 25 mcg/ Sodium Chloride 5 ml @ 100 mls/hr Q72H IVP ; Start 06/26/19 at 06:00 Sodium Chloride 1,000 ml @ 100 mls/hr 1X ONCE IV Last administered on at 11:59; Start 06/23/19 at 11:45; Stop 06/23/19 at 21:44; Status DC Propofol 20 ml @ As Directed STK-MED ONCE IV ; Start 06/24/19 at 09:27; Stop 06/24/19 at 09:28; Status DC Lidocaine HCl (Lidocaine Pf 2% Vial) 5 ml STK-MED ONCE .ROUTE ; Start 06/24/19 at 09:27; Stop 06/24/19 at 09:28; Status DC Rocuronium Weiser (Zemuron) 50 mg STK-MED ONCE .ROUTE ; Start 06/24/19 at 09: 28; Stop 06/24/19 at 09:28; Status DC Fentanyl Citrate (Fentanyl 2ml Vial) 100 mcg STK-MED ONCE .ROUTE ; Start 06/24/19 at 09:28; Stop 06/24/19 at 09:28; Status DC Cefazolin Sodium/ Dextrose 50 ml @ 100 mls/hr 1X PREOP PRN IV protocol Last administered on 06/24/19at 10:58; Start 06/24/19 at 06:00; Stop 06/24/19 at 15:00 Fentanyl Citrate (Fentanyl 2ml Vial) 25 mcg PRN Q5MIN PRN IV MILD PAIN 1-3; Start 06/24/19 at 10:00; Stop 06/25/19 at 09:59 Fentanyl Citrate (Fentanyl 2ml Vial) 50 mcg PRN Q5MIN PRN IV MODERATE TO SEVERE PAIN; Start 06/24/19 at 10:00; Stop 06/25/19 at 09:59 Morphine Sulfate (Morphine Sulfate) 1 mg PRN Q10MIN PRN IV SEVERE PAIN 7-10; Start 06/24/19 at 10:00; Stop 06/25/19 at 09:59 Ringer's Solution 1,000 ml @ 30 mls/hr Q24H IV ; Start 06/24/19 at 10:00; Stop 06/24/19 at 10:14; Status DC Hydromorphone HCl (Dilaudid) 0.5 mg PRN Q10MIN PRN IV SEV PAIN, Second choice; Start 06/24/19 at 10:00; Stop 06/25/19 at 09:59 Prochlorperazine Edisylate (Compazine) 5 mg PACU PRN PRN IV NAUSEA, MRX1; Start 06/24/19 at 10:00; Stop 06/25/19 at 09:59 Sodium Chloride 1,000 ml @ 100 mls/hr Q10H IV Last administered on 06/24/19at 1 0:58; Start 06/24/19 at 10:15 Bupivacaine HCl/ Epinephrine Bitart (Sensorcain-Mpf Epi 0.5%-1:[id number]) 30 ml 1X ONCE INJ ; Start 06/24/19 at 10:30; Stop 06/24/19 at 10:31; Status DC Desflurane (Suprane) 60 ml STK-MED ONCE IH ; Start 06/24/19 at 11:14; Stop 06/24/19 at 11:15; Status DC Ondansetron HCl (Zofran) 4 mg STK-MED ONCE .ROUTE ; Start 06/24/19 at 11:16; Stop 06/24/19 at 11:16; Status DC Dexamethasone Sodium Phosphate (Decadron) 4 mg STK-MED ONCE .ROUTE ; Start 06/24/19 at 11:17; Stop 06/24/19 at 11:17; Status DC Phenylephrine HCl (PHENYLEPHRINE in 0.9% NACL PF) 1 mg STK-MED ONCE IV ; Start 06/24/19 at 11:21; Stop 06/24/19 at 11:21; Status DC Active Scripts Active Reported Aspirin 81 Mg Tab.chew 1 Tab PO DAILY Ultram (Tramadol Hcl) 50 Mg Tablet 50 Mg PO Q4HRS PRN Potassium Chloride 10 Meq Tab.sr.24h 10 Meq PO DAILY Namenda (Memantine Hcl) 10 Mg Tablet 10 Mg PO BID Zofran (Ondansetron Hcl) 4 Mg Tablet 1 Tab PO PRN Q6-8HRS Imodium A-D (Loperamide Hcl) 1 Mg/7.5 Ml Liquid 1 Mg PO PRN PRN Omeprazole 20 Mg Tablet.dr 1 Tab PO DAILY Acetaminophen 325 Mg Tablet 325 Mg PO Q4HRS Donepezil Hcl 10 Mg Tablet 1 Tab PO DAILY Xeloda (Capecitabine) 500 Mg Tablet 2,000 Mg PO Q12HR Buspirone Hcl 5 Mg Tablet 1 Tab PO QID Melatonin 3 Mg Tablet 1 Tab PO QHS Levothyroxine Sodium 50 Mcg Tablet 50 Mcg PO DAILYAC Cerefolin Nac Caplet (Lmfol Ca/Acetyl/Mb12/Algal Oil) 1 Each Tablet 1 Each PO DAILY Xalatan (Latanoprost) 2.5 Ml Drops 1 Drop EACHEYE QHS Magnesium Oxide 400 Mg Tablet 1 Tab PO TID Pepcid (Famotidine) 20 Mg Tablet 20 Mg PO DAILY Ativan (Lorazepam) 0.5 Mg Tablet 0.5 Mg PO Q4HRS PRN Vitals/I & O Vital Sign - Last 24 Hours 06/23/19 06/23/19 06/23/19 06/23/19 15:00 19:45 20:00 23:54 Temp 98.2 98.0 98.0 98.2 98.0 98.0 Pulse 86 75 71 Resp 16 19 18 B/P (MAP) 112/56 (74) 98/50 (66) 95/42 (59) Pulse Ox 98 98 96 O2 Delivery Room Air Room Air Room Air Room Air 06/24/19 06/24/19 06/24/19 03:51 07:00 07:45 Temp 98.1 97.6 98.1 97.6 Pulse 80 73 Resp 17 17 B/P (MAP) 114/60 (78) 105/59 (74) Pulse Ox 97 98 O2 Delivery Room Air Room Air Room Air Intake and Output 06/23/19 06/23/19 06/24/19 14:59 22:59 06:59 Intake Total 0 ml Output Total 1300 ml 1200 ml Balance -1300 ml -1200 ml Nutrition Consultation Dietary Evaluation: Recommendations by RD: PPN/TPN Comments: continue with PPN until able to advance diet Expected Outcomes/Goals: to meet > 75% est nutr needs via po intake- not met, goal ongoing Malnutrition Findings: Muscle Mass (Severe): Severe Depletion Food and Nutrition Intake (Sev: <50% est energy req 5days Body Fat Depletion (Non Severe: Mod to Severe Weight Status: Underweight ZUHAIR RIVERA MD Jun 24, 2019 11:26
[2019-06-24] MEDS ORDERED: IV NORMAL SALINE 1000ML BAG 1,000 ML IV ONE (11:30)
[2019-06-24] MEDS ORDERED: GLYCOPYRROLATE 1 MG/5 ML VIAL. ONE (11:39)
[2019-06-24] MEDS ORDERED: NEOSTIGMINE METHYLSULFATE 5 MG/5 ML SYRINGE. ONE (11:39)
--- NOTE | 2019-06-24 12:05 | PDOC ---
Renal-Progress Notes Subjective Notes Notes NOTHING NEW History of Present Illness Hx of present illness STABLE Vitals Vitals Vital Signs Date Time Temp Pulse Resp B/P (MAP) Pulse Ox O2 Delivery O2 Flow Rate FiO2 06/24/19 07:45 Room Air 06/24/19 07:00 97.6 73 17 105/59 (74) 98 97.6 Weight Weight [ ] I.O. Intake and Output Intake and Output 06/24/19 07:00 Intake Total 0 ml Output Total 2500 ml Balance -2500 ml Intake Oral 0 ml Output Urine Total 750 ml Gastric Drainage Total 1750 ml # Voids 3 Labs Labs Laboratory Tests Test 06/24/19 05:00 Sodium Level 138 mmol/L (136-145) Potassium Level 4.2 mmol/L (3.5-5.1) Chloride Level 101 mmol/L (98-107) Carbon Dioxide Level 27 mmol/L (21-32) Anion Gap 10 (6-14) Blood Urea Nitrogen 89 mg/dL (7-20) Creatinine 1.7 mg/dL (0.6-1.0) Estimated GFR (Cockcroft-Gault) 28.6 Glucose Level 96 mg/dL (70-99) Calcium Level 8.0 mg/dL (8.5-10.1) Micro Micro Microbiology 06/20/19 Urine Culture - Final, Complete 06/20/19 Urine Culture Result 1 (YOBANY) - Final, Complete Physical Exam Musculoskeletal: Osteoarthritis Assessment Assessment IMP DEHYDRATION RUFINO-ATN-CR DOWN TO 1.7 ENCEPHALOPATHY DEMENTIA SBO UTI LEFT RENAL ATROPHY PLAN PPN IVF'S DECREASED SURGERY FOLLOWING ANTIBIOTICS MAY HAVE SOME CKD-BASELINE UNKNOWN WILL FOLLOW DANIEL AUSTIN MD Jun 24, 2019 12:05
--- NOTE | 2019-06-24 12:42 | RAD ---
EXAM: Supine AP view of the abdomen DATE: 06/24/2019 12:00 AM INDICATION: Small bowel obstruction. COMPARISON: 06/23/2019 FINDINGS/ IMPRESSION: NG tube tip projects over the expected body of the stomach. No evidence for unexpected retained radiopaque foreign body. Lobular cylindrical type density was previously in the right upper quadrant, now is in the left upper quadrant possibly from injection substance.Anastomotic suture line is seen in the right lower quadrant. Electronically signed by: Yves Kingston MD (06/24/2019 12:39 PM) [facility]
[2019-06-24] MEDS ORDERED: PROCHLORPERAZINE 10 MG/2 ML VIAL. ONE (12:59)
[2019-06-24] MEDS: PROCHLORPERAZINE 10 MG/2 ML VIAL. IV PRN ×2 (13:15→13:25)
[2019-06-24] MEDS ORDERED: NALOXONE 0.4 MG/ML VIAL. IV PRN (13:15)
[2019-06-24] MEDS ORDERED: 0.9 % SODIUM CHLORIDE 10 ML DISP.SYRIN. IV PRN (13:15)
[2019-06-24] MEDS: fentaNYL PF VIAL 100 MCG/2 ML VIAL IV PRN ×2 (13:27→13:48)
--- NOTE | 2019-06-24 13:28 | PDOC ---
BRIEF OPERATIVE NOTE Date: Jun 24, 2019 Pre-Op Diagnosis small bowel obstruction Post-Op Diagnosis same 2/2 fibrous adhesion Procedure Performed l/s-> open exploration, release small bowel obstruction, SBR with primary anastomosis Surgeon Darius LENZ Anesthesia Type: General Blood Loss 10cc IV Fluid 900cc Urine Output 150cc Specimens Obtained stenotic small bowel Findings adhesive band creating obstruction Complications none Operative Note Wk # [id number] HUSSEIN WEINER MD Jun 24, 2019 13:28
--- NOTE | 2019-06-24 14:16 | OP ---
DATE OF SURGERY: 06/24/2019 PREOPERATIVE DIAGNOSIS: Small-bowel obstruction. POSTOPERATIVE DIAGNOSIS: Small-bowel obstruction secondary to a fibrous adhesion. PROCEDURE: Laparoscopic converted to open exploration, release small-bowel obstruction, small bowel resection with primary anastomosis. SURGEON: Newton Weiner MD PERSONAL DRIVER: YOANNA Obrien. ANESTHESIA: General endotracheal. ESTIMATED BLOOD LOSS: 10 mL. IV FLUID: 900 mL. URINE OUTPUT: 150 mL. INDICATIONS: The patient is an 84-year-old with previous right colon resection for cancer, who presented with a small-bowel obstruction that did not respond to NG decompression. OPERATIVE FINDINGS: A dense fibrous band across the mid ileum creating the obstruction and a stricture within the bowel itself. There was an ileocolic anastomosis; otherwise, unremarkable exploration. DESCRIPTION OF PROCEDURE: The patient brought to the operating suite, given a general endotracheal anesthetic. Gu catheter placed to dependent drainage. The abdomen prepped and draped in usual sterile fashion. An infraumbilical incision was infiltrated with local anesthetic, incised and a 5 mm Visiport attempted placement into the abdominal cavity. Concern for previous adhesions and potential bowel injury prompted me to abandon the laparoscope and converted to an open procedure. As such, the scope was removed. A short midline incision was created with the umbilicus and the midpoint. Abdomen carefully entered. The bowel was brought out of the abdominal cavity and dilated bowel followed down to the point of obstruction, which was lysed. The bowel was then run from the ileocolic anastomosis proximally to the ligament of Treitz. Only abnormality seen was a stricture created by the adhesive band. The section was resected by dividing it proximally and distally with AILEEN staplers. Mesentery divided with clamps and Vicryl ties. An end-to-end anastomosis created with a posterior row of 3-0 Vicryl. Bowel occluded. The staple lines excised. Mucosal anastomosis created with a running locked 3-0 chromic first posteriorly, then anteriorly. Clamps removed. Anastomosis completed with 3-0 Vicryl interrupted sutures. The small mesenteric rent was closed with 2-0 chromic. Gloves were changed. There was competency and patency of the anastomosis at completion. Abdomen irrigated, evacuated and checked for hemostasis. When present and a correct sponge count was obtained, the incision was closed by running the posterior sheath peritoneum with 0 Vicryl. Anterior sheath closed in running fashion with looped 0 PDS tied in the middle. Subq approximated with 3-0 Vicryl, skin closed with a subcuticular 4-0 Monocryl. Sterile dressing applied. The patient was awakened from her anesthetic and taken to the recovery room in satisfactory condition. NEWTON WEINER MD DR: JULIO CESAR/jose JOB#: [id number] / [id number]
--- NOTE | 2019-06-24 14:45 | NUR ---
Pt. here from PACU via bed per transportation. Rates pain to mid abd 5/10, mid abd incision CDI. NG to LIS, hinojosa in place with clear yellow urine.
[2019-06-24] MEDS: MORPHINE SULFATE 4 MG/ML VIAL. IV PRN ×2 (15:02→20:50)
--- NOTE | 2019-06-24 15:39 | NUR ---
Dr. Vallejo paged re: clarification of IVF.
[2019-06-24] MEDS: LATANOPROST 0.005% OPHTH SOLUTION 2.5ML BOTTLE. OU SCH ×2 (20:39→20:45)
[2019-06-25 03:15] VITALS: BP 101/84
[2019-06-25 06:37] LABS: BASO % 0 % (0-3); EOS % 0 % (0-3); HEMATOCRIT 25.1 % (36.0-47.0); HEMOGLOBIN 8.7 g/dL (12.0-15.5); LYMPH # 0.8 x10^3/uL (1.0-4.8); LYMPH % 15 % (24-48); MEAN CORPUSCULAR HEMOGLOBIN 37 pg (25-35); MEAN CORPUSCULAR HGB CONC 35 g/dL (31-37); MEAN CORPUSCULAR VOLUME 106 fL (79-100); MONO # 0.3 x10^3/uL (0.0-1.1); MONO % 5 % (0-9); NEUT # 4.3 x10^3/uL (1.8-7.7); NEUT % 80 % (31-73); PLATELET COUNT 146 x10^3/uL (140-400); RED BLOOD COUNT 2.36 x10^6/uL (3.50-5.40); RED CELL DISTRIBUTION WIDTH 22.1 % (11.5-14.5); WHITE BLOOD COUNT 5.4 x10^3/uL (4.0-11.0)
[2019-06-25 06:38] LABS: MAGNESIUM 3.1 mg/dL (1.8-2.4); PHOSPHORUS 3.5 mg/dL (2.6-4.7)
[2019-06-25 06:39] LABS: ALBUMIN 2.1 g/dL (3.4-5.0); ALBUMIN/GLOBULIN RATIO 0.7 (1.0-1.7); CALCIUM 7.6 mg/dL (8.5-10.1); CREATININE 1.4 mg/dL (0.6-1.0); GFR 35.7; POTASSIUM 4.8 mmol/L (3.5-5.1); TOTAL BILIRUBIN 0.4 mg/dL (0.2-1.0); TOTAL PROTEIN 5.2 g/dL (6.4-8.2)
[2019-06-25 07:00] VITALS: BP 99/48
[2019-06-25] MEDS: DONEPEZIL HCL 10 MG TABLET. PO SCH (09:00)
[2019-06-25] MEDS: POTASSIUM CHLORIDE 10 MEQ TABLET.ER. PO SCH (09:00)
[2019-06-25] MEDS: busPIRone 5 MG TABLET. PO SCH ×4 (09:00→21:00)
[2019-06-25] MEDS: PANTOPRAZOLE IV PUSH 40 MG VIAL. IVP SCH (09:58)
[2019-06-25] MEDS: AMINO AC 3%/ELECTROLYTE/GLYCER 1,000 ML IV SCH ×2 (09:59→21:48)
[2019-06-25] MEDS ORDERED: IV NORMAL SALINE 1000ML BAG 1,000 ML IV ONE (10:30)
--- NOTE | 2019-06-25 10:40 | PDOC ---
PROGRESS NOTES Chief Complaint Chief Complaint acute abd pain small bowel obstruction, lactate elevated from this metastatic breast cancer malnutrition acute on chronic CKD 4 cognitive decline, dementia Hx, chronic Small-bowel obstruction secondary to a fibrous adhesion. History of Present Illness History of Present Illness per Dr. Mccoy, 06/24 Laparoscopic converted to open exploration, release small- bowel obstruction, small bowel resection with primary anastomosis. ex lap surg yesterday up to chair as able lactic acidosis noted l cont IV Fluid renal fxn about the same, BUN up, cont current Vitals Vitals Vital Signs Date Time Temp Pulse Resp B/P (MAP) Pulse Ox O2 Delivery O2 Flow Rate FiO2 06/25/19 07:00 98.2 85 18 99/48 (65) 96 Nasal Cannula 2.0 98.2 Physical Exam General: Alert, Cooperative, No acute distress, Other (some lethargic) Heart: Regular rate, Normal S2 Lungs: Clear Abdomen: Soft, Other (mild ttp right abdomen ) Extremities: No clubbing, No cyanosis Skin: No breakdown Labs LABS Laboratory Tests Test 06/25/19 06:00 White Blood Count 5.4 x10^3/uL (4.0-11.0) Red Blood Count 2.36 x10^6/uL (3.50-5.40) Hemoglobin 8.7 g/dL (12.0-15.5) Hematocrit 25.1 % (36.0-47.0) Mean Corpuscular Volume 106 fL (79-100) Mean Corpuscular Hemoglobin 37 pg (25-35) Mean Corpuscular Hemoglobin Concent 35 g/dL (31-37) Red Cell Distribution Width 22.1 % (11.5-14.5) Platelet Count 146 x10^3/uL (140-400) Neutrophils (%) (Auto) 80 % (31-73) Lymphocytes (%) (Auto) 15 % (24-48) Monocytes (%) (Auto) 5 % (0-9) Eosinophils (%) (Auto) 0 % (0-3) Basophils (%) (Auto) 0 % (0-3) Neutrophils # (Auto) 4.3 x10^3/uL (1.8-7.7) Lymphocytes # (Auto) 0.8 x10^3/uL (1.0-4.8) Monocytes # (Auto) 0.3 x10^3/uL (0.0-1.1) Eosinophils # (Auto) 0.0 x10^3/uL (0.0-0.7) Basophils # (Auto) 0.0 x10^3/uL (0.0-0.2) Sodium Level 139 mmol/L (136-145) Potassium Level 4.8 mmol/L (3.5-5.1) Chloride Level 106 mmol/L (98-107) Carbon Dioxide Level 23 mmol/L (21-32) Anion Gap 10 (6-14) Blood Urea Nitrogen 69 mg/dL (7-20) Creatinine 1.4 mg/dL (0.6-1.0) Estimated GFR (Cockcroft-Gault) 35.7 BUN/Creatinine Ratio 49 (6-20) Glucose Level 99 mg/dL (70-99) Calcium Level 7.6 mg/dL (8.5-10.1) Phosphorus Level 3.5 mg/dL (2.6-4.7) Magnesium Level 3.1 mg/dL (1.8-2.4) Total Bilirubin 0.4 mg/dL (0.2-1.0) Aspartate Amino Transf (AST/SGOT) 28 U/L (15-37) Alanine Aminotransferase (ALT/SGPT) 27 U/L (14-59) Alkaline Phosphatase 182 U/L (46-116) Total Protein 5.2 g/dL (6.4-8.2) Albumin 2.1 g/dL (3.4-5.0) Albumin/Globulin Ratio 0.7 (1.0-1.7) Assessment and Plan Assessmemt and Plan Problems Medical Problems: (1) RUFINO (acute kidney injury) Status: Acute (2) Dehydration Status: Acute (3) Encephalopathy Status: Acute (4) Small bowel obstruction Status: Acute Comment Review of Relevant I have reviewed the following items lola (where applicable) has been applied. Labs Laboratory Tests Test 06/24/19 05:00 06/25/19 06:00 Sodium Level 138 mmol/L (136-145) 139 mmol/L (136-145) Potassium Level 4.2 mmol/L (3.5-5.1) 4.8 mmol/L (3.5-5.1) Chloride Level 101 mmol/L (98-107) 106 mmol/L (98-107) Carbon Dioxide Level 27 mmol/L (21-32) 23 mmol/L (21-32) Anion Gap 10 (6-14) 10 (6-14) Blood Urea Nitrogen 89 mg/dL (7-20) 69 mg/dL (7-20) Creatinine 1.7 mg/dL (0.6-1.0) 1.4 mg/dL (0.6-1.0) Estimated GFR (Cockcroft-Gault) 28.6 35.7 Glucose Level 96 mg/dL (70-99) 99 mg/dL (70-99) Calcium Level 8.0 mg/dL (8.5-10.1) 7.6 mg/dL (8.5-10.1) White Blood Count 5.4 x10^3/uL (4.0-11.0) Red Blood Count 2.36 x10^6/uL (3.50-5.40) Hemoglobin 8.7 g/dL (12.0-15.5) Hematocrit 25.1 % (36.0-47.0) Mean Corpuscular Volume 106 fL (79-100) Mean Corpuscular Hemoglobin 37 pg (25-35) Mean Corpuscular Hemoglobin Concent 35 g/dL (31-37) Red Cell Distribution Width 22.1 % (11.5-14.5) Platelet Count 146 x10^3/uL (140-400) Neutrophils (%) (Auto) 80 % (31-73) Lymphocytes (%) (Auto) 15 % (24-48) Monocytes (%) (Auto) 5 % (0-9) Eosinophils (%) (Auto) 0 % (0-3) Basophils (%) (Auto) 0 % (0-3) Neutrophils # (Auto) 4.3 x10^3/uL (1.8-7.7) Lymphocytes # (Auto) 0.8 x10^3/uL (1.0-4.8) Monocytes # (Auto) 0.3 x10^3/uL (0.0-1.1) Eosinophils # (Auto) 0.0 x10^3/uL (0.0-0.7) Basophils # (Auto) 0.0 x10^3/uL (0.0-0.2) BUN/Creatinine Ratio 49 (6-20) Phosphorus Level 3.5 mg/dL (2.6-4.7) Magnesium Level 3.1 mg/dL (1.8-2.4) Total Bilirubin 0.4 mg/dL (0.2-1.0) Aspartate Amino Transf (AST/SGOT) 28 U/L (15-37) Alanine Aminotransferase (ALT/SGPT) 27 U/L (14-59) Alkaline Phosphatase 182 U/L (46-116) Total Protein 5.2 g/dL (6.4-8.2) Albumin 2.1 g/dL (3.4-5.0) Albumin/Globulin Ratio 0.7 (1.0-1.7) Laboratory Tests Test 06/25/19 06:00 White Blood Count 5.4 x10^3/uL (4.0-11.0) Red Blood Count 2.36 x10^6/uL (3.50-5.40) Hemoglobin 8.7 g/dL (12.0-15.5) Hematocrit 25.1 % (36.0-47.0) Mean Corpuscular Volume 106 fL (79-100) Mean Corpuscular Hemoglobin 37 pg (25-35) Mean Corpuscular Hemoglobin Concent 35 g/dL (31-37) Red Cell Distribution Width 22.1 % (11.5-14.5) Platelet Count 146 x10^3/uL (140-400) Neutrophils (%) (Auto) 80 % (31-73) Lymphocytes (%) (Auto) 15 % (24-48) Monocytes (%) (Auto) 5 % (0-9) Eosinophils (%) (Auto) 0 % (0-3) Basophils (%) (Auto) 0 % (0-3) Neutrophils # (Auto) 4.3 x10^3/uL (1.8-7.7) Lymphocytes # (Auto) 0.8 x10^3/uL (1.0-4.8) Monocytes # (Auto) 0.3 x10^3/uL (0.0-1.1) Eosinophils # (Auto) 0.0 x10^3/uL (0.0-0.7) Basophils # (Auto) 0.0 x10^3/uL (0.0-0.2) Sodium Level 139 mmol/L (136-145) Potassium Level 4.8 mmol/L (3.5-5.1) Chloride Level 106 mmol/L (98-107) Carbon Dioxide Level 23 mmol/L (21-32) Anion Gap 10 (6-14) Blood Urea Nitrogen 69 mg/dL (7-20) Creatinine 1.4 mg/dL (0.6-1.0) Estimated GFR (Cockcroft-Gault) 35.7 BUN/Creatinine Ratio 49 (6-20) Glucose Level 99 mg/dL (70-99) Calcium Level 7.6 mg/dL (8.5-10.1) Phosphorus Level 3.5 mg/dL (2.6-4.7) Magnesium Level 3.1 mg/dL (1.8-2.4) Total Bilirubin 0.4 mg/dL (0.2-1.0) Aspartate Amino Transf (AST/SGOT) 28 U/L (15-37) Alanine Aminotransferase (ALT/SGPT) 27 U/L (14-59) Alkaline Phosphatase 182 U/L (46-116) Total Protein 5.2 g/dL (6.4-8.2) Albumin 2.1 g/dL (3.4-5.0) Albumin/Globulin Ratio 0.7 (1.0-1.7) Microbiology 06/20/19 Urine Culture - Final, Complete 06/20/19 Urine Culture Result 1 (YOBANY) - Final, Complete Medications Current Medications Potassium Chloride/Sodium Chloride 1,000 ml @ 125 mls/hr Q8H IV Last administered on 06/20/19at 07:57; Start 06/19/19 at 22:15; Stop 06/20/19 at 08:50; Status DC Throat Lozenges (Chloraseptic) 1 spray PRN Q2HR PRN PO SORE THROAT, 2ND CHOICE; Start 06/19/19 at 22:15 Throat Lozenges (Cepacol Sore Throat Lozenge) 1 juan PRN Q2HRS PRN PO SORE THROAT, 1ST CHOICE; Start 06/19/19 at 22:15 Sodium Chloride 250 ml @ 250 mls/hr 1X ONCE IV Last administered on 06/20/19at 03:24; Start 06/20/19 at 02:45; Stop 06/20/19 at 03:45; Status DC Ondansetron HCl (Zofran) 4 mg PRN Q6HRS PRN IV NAUSEA/VOMITING Last administered on 06/22/19at 15:39; Start 06/20/19 at 08:00 Buspirone HCl (Buspar) 5 mg QID PO ; Start 06/20/19 at 09:00 Donepezil HCl (Aricept) 10 mg DAILY PO ; Start 06/20/19 at 09:00 Latanoprost (Xalatan) 1 drop QHS OU Last administered on 06/24/19at 20:50; Start 06/20/19 at 21:00 Levothyroxine Sodium (Synthroid) 50 mcg DAILYAC PO ; Start 06/20/19 at 09:00; Stop 06/22/19 at 15:39; Status DC Lorazepam (Ativan) 0.5 mg PRN Q4HRS PRN PO ANXIETY / AGITATION; Start 06/20/19 at 08:45 Potassium Chloride (Klor-Con) 10 meq DAILY PO ; Start 06/20/19 at 09:00 Non-Formulary Medication (Melatonin ) 1 tab QHS PO ; Start 06/20/19 at 21:00; Status UNV Pantoprazole Sodium (Protonix) 40 mg DAILYAC PO ; Start 06/20/19 at 09:00; Stop 06/21/19 at 22:23; Status DC Ondansetron HCl (Zofran Odt) 4 mg PRN Q6HRS PRN PO NAUSEA/VOMITING Last administered on 06/22/19at 05:57; Start 06/20/19 at 09:00 Amino Acids/ Glycerin/ Electrolytes 1,000 ml @ 80 mls/hr [id number] IV Last administered on 06/25/19at 09:59; Start 06/20/19 at 09:00 Sodium Chloride 1,000 ml @ 1,000 mls/hr 1X ONCE IV Last administered on 06/20/19at 13:50; Start 06/20/19 at 13:30; Stop 06/20/19 at 14:29; Status DC Methylprednisolone Sodium Succinate (SOLU-Medrol 125MG VIAL) 125 mg 1X ONCE IV Last administered on 06/21/19at 17:15; Start 06/21/19 at 18:00; Stop 06/21/19 at 18:01; Status DC Methylprednisolone Sodium Succinate (SOLU-Medrol 125MG VIAL) 125 mg 1X ONCE IV Last administered on 06/22/19at 01:38; Start 06/22/19 at 00:00; Stop 06/22/19 at 00:01; Status DC Methylprednisolone Sodium Succinate (SOLU-Medrol 125MG VIAL) 125 mg 1X ONCE IV Last administered on 06/22/19at 05:43; Start 06/22/19 at 06:00; Stop 06/22/19 at 06:01; Status DC Diphenhydramine HCl (Benadryl) 50 mg 1X ONCE IVP Last administered on 06/22/19at 07:46; Start 06/22/19 at 07:00; Stop 06/22/19 at 07:01; Status DC Sodium Chloride 500 ml @ 500 mls/hr 1X ONCE IV Last administered on 06/21/19at 15:38; Start 06/21/19 at 15:30; Stop 06/21/19 at 16:29; Status DC Levofloxacin (Levaquin) 250 mg DAILY06 PO ; Start 06/22/19 at 06:00; Stop 06/21/19 at 22:23; Status DC Levofloxacin/ Dextrose 50 ml @ 50 mls/hr Q24H IV ; Start 06/21/19 at 22:30; Stop 06/21/19 at 22:34; Status DC Pantoprazole Sodium (PROTONIX VIAL for IV PUSH) 40 mg DAILYAC IVP Last administered on 06/25/19at 09:59; Start 06/22/19 at 07:30 Levofloxacin/ Dextrose 50 ml @ 50 mls/hr Q24H IV Last administered on 06/22/19at 05:43; Start 06/22/19 at 06:00; Stop 06/22/19 at 13:57; Status DC Iohexol (Omnipaque 300 Mg/ml) 400 ml 1X ONCE PO ; Start 06/22/19 at 07:45; Stop 06/22/19 at 07:50; Status DC Info (CONTRAST GIVEN -- Rx MONITORING) 1 each PRN DAILY PRN MC SEE COMMENTS; Start 06/22/19 at 08:00; Stop 06/24/19 at 07:59; Status DC Sodium Chloride 1,000 ml @ 100 mls/hr 1X ONCE IV Last administered on 06/22/19at 11:40; Start 06/22/19 at 11:15; Stop 06/22/19 at 21:14; Status DC Levothyroxine Sodium 25 mcg/ Sodium Chloride 5 ml @ 100 mls/hr Q72H IVP ; Start 06/26/19 at 06:00 Sodium Chloride 1,000 ml @ 100 mls/hr 1X ONCE IV Last administered on 06/23/19at 11:59; Start 06/23/19 at 11:45; Stop 06/23/19 at 21:44; Status DC Propofol 20 ml @ As Directed STK-MED ONCE IV ; Start 06/24/19 at 09:27; Stop 06/24/19 at 09:28; Status DC Lidocaine HCl (Lidocaine Pf 2% Vial) 5 ml STK-MED ONCE .ROUTE ; Start 06/24/19 at 09:27; Stop 06/24/19 at 09:28; Status DC Rocuronium [place] (Zemuron) 50 mg STK-MED ONCE .ROUTE ; Start 06/24/19 at 09:28; Stop 06/24/19 at 09:28; Status DC Fentanyl Citrate (Fentanyl 2ml Vial) 100 mcg STK-MED ONCE .ROUTE ; Start 06/24/19 at 09:28; Stop 06/24/19 at 09:28; Status DC Cefazolin Sodium/ Dextrose 50 ml @ 100 mls/hr 1X PREOP PRN IV protocol Last administered on 06/24/19at 11:37; Start 06/24/19 at 06:00; Stop 06/24/19 at 15:00; Status DC Fentanyl Citrate (Fentanyl 2ml Vial) 25 mcg PRN Q5MIN PRN IV MILD PAIN 1-3 Last administered on 06/24/19at 13:48; Start 06/24/19 at 10:00; Stop 06/25/19 at 09:59; Status DC Fentanyl Citrate (Fentanyl 2ml Vial) 50 mcg PRN Q5MIN PRN IV MODERATE TO SEVERE PAIN Last administered on 06/24/19at 14:08; Start 06/24/19 at 10:00; Stop 06/25/19 at 09:59; Status DC Morphine Sulfate (Morphine Sulfate) 1 mg PRN Q10MIN PRN IV SEVERE PAIN 7-10; Start 06/24/19 at 10:00; Stop 06/25/19 at 09:59; Status DC Ringer's Solution 1,000 ml @ 30 mls/hr Q24H IV ; Start 06/24/19 at 10:00; Stop 06/24/19 at 10:14; Status DC Hydromorphone HCl (Dilaudid) 0.5 mg PRN Q10MIN PRN IV SEV PAIN, Second choice; Start 06/24/19 at 10:00; Stop 06/25/19 at 09:59; Status DC Prochlorperazine Edisylate (Compazine) 5 mg PACU PRN PRN IV NAUSEA, MRX1 Last administered on 06/24/19at 13:27; Start 06/24/19 at 10:00; Stop 06/25/19 at 09 :59; Status DC Sodium Chloride 1,000 ml @ 40 mls/hr Q24H IV Last administered on 06/24/19at 14:16; Start 06/24/19 at 10:15 Bupivacaine HCl/ Epinephrine Bitart (Sensorcain-Mpf Epi 0.5%-1:[id number]) 30 ml 1X ONCE INJ Last administered on 06/24/19at 12:53; Start 06/24/19 at 10:30; Stop 06/24/19 at 10:31; Status DC Desflurane (Suprane) 60 ml STK-MED ONCE IH ; Start 06/24/19 at 11:14; Stop 06/24/19 at 11:15; Status DC Ondansetron HCl (Zofran) 4 mg STK-MED ONCE .ROUTE ; Start 06/24/19 at 11:16; Stop 06/24/19 at 11:16; Status DC Dexamethasone Sodium Phosphate (Decadron) 4 mg STK-MED ONCE .ROUTE ; Start 06/24/19 at 11:17; Stop 06/24/19 at 11:17; Status DC Phenylephrine HCl (PHENYLEPHRINE in 0.9% NACL PF) 1 mg STK-MED ONCE IV ; Start 06/24/19 at 11:21; Stop 06/24/19 at 11:21; Status DC Sodium Chloride 1,000 ml @ 100 mls/hr 1X ONCE IV ; Start 06/24/19 at 11:30; Stop 06/24/19 at 21:29; Status DC Ephedrine Sulfate (ePHEDrine PF IN SALINE SYRINGE) 50 mg STK-MED ONCE IV ; Start 06/24/19 at 11:26; Stop 06/24/19 at 11:26; Status DC Ondansetron HCl (Zofran) 4 mg STK-MED ONCE .ROUTE ; Start 06/24/19 at 11:38; Stop 06/24/19 at 11:38; Status DC Neostigmine Methylsulfate (Neostigmine Methylsulfate) 5 mg STK-MED ONCE .ROUTE ; Start 06/24/19 at 11:39; Stop 06/24/19 at 11:39; Status DC Glycopyrrolate (Robinul) 1 mg STK-MED ONCE .ROUTE ; Start 06/24/19 at 11:39; Stop 06/24/19 at 11:39; Status DC Prochlorperazine Edisylate (Compazine) 10 mg STK-MED ONCE .ROUTE ; Start 06/24/19 at 12:59; Stop 06/24/19 at 13:00; Status DC Fentanyl Citrate (Fentanyl 2ml Vial) 100 mcg STK-MED ONCE .ROUTE ; Start 06/24/19 at 13:08; Stop 06/24/19 at 13:08; Status DC Sodium Chloride (Normal Saline Flush) 3 ml QSHIFT PRN IV AFTER MEDS AND BLOOD DRAWS; Start 06/24/19 at 13:15 Naloxone HCl (Narcan) 0.4 mg PRN Q2MIN PRN IV SEE INSTRUCTIONS; Start 06/24/19 at 13:15 Sodium Chloride 1,000 ml @ 25 mls/hr Q24H IV ; Start 06/24/19 at 13:14 Morphine Sulfate (Morphine Sulfate) 4 mg PRN Q4HRS PRN IV MODERATE TO SEVERE PAIN Last administered on 06/24/19at 20:50; Start 06/24/19 at 13:15 Sodium Chloride 1,000 ml @ 100 mls/hr 1X ONCE IV ; Start 06/25/19 at 10:30; Stop 06/25/19 at 20:29 Active Scripts Active Reported Aspirin 81 Mg Tab.chew 1 Tab PO DAILY Ultram (Tramadol Hcl) 50 Mg Tablet 50 Mg PO Q4HRS PRN Potassium Chloride 10 Meq Tab.sr.24h 10 Meq PO DAILY Namenda (Memantine Hcl) 10 Mg Tablet 10 Mg PO BID Zofran (Ondansetron Hcl) 4 Mg Tablet 1 Tab PO PRN Q6-8HRS Imodium A-D (Loperamide Hcl) 1 Mg/7.5 Ml Liquid 1 Mg PO PRN PRN Omeprazole 20 Mg Tablet.dr 1 Tab PO DAILY Acetaminophen 325 Mg Tablet 325 Mg PO Q4HRS Donepezil Hcl 10 Mg Tablet 1 Tab PO DAILY Xeloda (Capecitabine) 500 Mg Tablet 2,000 Mg PO Q12HR Buspirone Hcl 5 Mg Tablet 1 Tab PO QID Melatonin 3 Mg Tablet 1 Tab PO QHS Levothyroxine Sodium 50 Mcg Tablet 50 Mcg PO DAILYAC Cerefolin Nac Caplet (Lmfol Ca/Acetyl/Mb12/Algal Oil) 1 Each Tablet 1 Each PO DAILY Xalatan (Latanoprost) 2.5 Ml Drops 1 Drop EACHEYE QHS Magnesium Oxide 400 Mg Tablet 1 Tab PO TID Pepcid (Famotidine) 20 Mg Tablet 20 Mg PO DAILY Ativan (Lorazepam) 0.5 Mg Tablet 0.5 Mg PO Q4HRS PRN Vitals/I & O Vital Sign - Last 24 Hours 06/24/19 06/24/19 06/24/19 06/24/19 12:48 12:50 13:04 13:19 Temp 97.3 97.3 97.3 97.3 97.3 97.3 Pulse 100 100 98 Resp 20 B/P (MAP) 129/82 99/60 121/63 Pulse Ox 99 99 91 O2 Delivery Room Air Mask Simple Mask Room Air O2 Flow Rate 6 6 6 06/24/19 06/24/19 06/24/19 06/24/19 13:27 13:34 13:48 13:49 Temp 97.3 97.3 97.3 97.3 Pulse 96 96 Resp B/P (MAP) 114/59 107/61 Pulse Ox 91 94 96 96 O2 Delivery Room Air Nasal Cannula Nasal Cannula Nasal Cannula O2 Flow Rate 2 06/24/19 06/24/19 06/24/19 06/24/19 14:04 14:08 14:19 14:45 Temp 97.3 97.3 97.3 97.3 Pulse 97 96 Resp B/P (MAP) 117/62 118/63 Pulse Ox 97 98 98 O2 Delivery Nasal Cannula Nasal Cannula Nasal Cannula Nasal Cannula O2 Flow Rate 2 2.0 2.0 2.0 8/16/19 8/16/19 8/16/19 8/16/19 15:00 15:02 15:20 15:45 Temp 97.4 97.4 Pulse 96 93 Resp 17 20 24 B/P (MAP) 111/63 (79) 112/60 (77) Pulse Ox 96 98 97 99 O2 Delivery Room Air Nasal Cannula Nasal Cannula Nasal Cannula O2 Flow Rate 2.0 2.0 2.0 06/24/19 06/24/19 06/24/19 06/24/19 15:50 16:30 17:30 18:30 Pulse 95 93 93 Resp 24 20 20 24 B/P (MAP) 105/59 (74) 105/68 (80) 108/61 (77) 98/57 (71) Pulse Ox 99 99 98 97 O2 Delivery Nasal Cannula Nasal Cannula Nasal Cannula Nasal Cannula O2 Flow Rate 2.0 2.0 2.0 2.0 06/24/19 06/24/19 06/24/19 06/24/19 19:45 19:45 20:50 21:28 Temp 98.2 98.2 Pulse 97 Resp 18 20 20 B/P (MAP) 91/64 (73) Pulse Ox 97 O2 Delivery Nasal Cannula Nasal Cannula Nasal Cannula Nasal Cannula O2 Flow Rate 2.0 2.0 2.0 2.0 06/24/19 06/25/19 06/25/19 23:17 03:15 07:00 Temp 98.3 98.4 98.2 98.3 98.4 98.2 Pulse 89 90 85 Resp 18 18 18 B/P (MAP) 102/54 (70) 101/84 (90) 99/48 (65) Pulse Ox 96 96 96 O2 Delivery Nasal Cannula Nasal Cannula Nasal Cannula O2 Flow Rate 2.0 2.0 2.0 Intake and Output 06/24/19 06/24/19 06/25/19 15:00 23:00 07:00 Intake Total 2880 ml Output Total 260 ml 525 ml 800 ml Balance -260 ml -525 ml 2080 ml Nutrition Consultation Dietary Evaluation: Recommendations by RD: PPN/TPN Comments: continue with PPN until able to advance diet Expected Outcomes/Goals: to meet > 75% est nutr needs via po intake- not met, goal ongoing Malnutrition Findings: Muscle Mass (Severe): Severe Depletion Food and Nutrition Intake (Sev: <50% est energy req 5days Body Fat Depletion (Non Severe: Mod to Severe Weight Status: Underweight ZUHAIR RIVERA MD Jun 25, 2019 10:40
[2019-06-25 11:00] VITALS: BP 100/61
[2019-06-25] MEDS: IV NORMAL SALINE 1000ML BAG 1,000 ML IV SCH (11:04)
--- NOTE | 2019-06-25 11:10 | PDOC ---
Renal-Progress Notes Subjective Notes Notes SLEEPY History of Present Illness Hx of present illness STABLE Vitals Vitals Vital Signs Date Time Temp Pulse Resp B/P (MAP) Pulse Ox O2 Delivery O2 Flow Rate FiO2 06/25/19 08:00 Room Air 06/25/19 07:00 98.2 85 18 99/48 (65) 96 2.0 98.2 Weight Weight [ ] I.O. Intake and Output Intake and Output 06/25/19 06:59 Intake Total 2880 ml Output Total 1585 ml Balance 1295 ml Intake Oral 0 ml IV Total 1440 ml Other 1440 ml Output Urine Total 1175 ml Gastric Drainage Total 400 ml Estimated Blood Loss 10 ml Labs Labs Laboratory Tests Test 06/25/19 06:00 White Blood Count 5.4 x10^3/uL (4.0-11.0) Red Blood Count 2.36 x10^6/uL (3.50-5.40) Hemoglobin 8.7 g/dL (12.0-15.5) Hematocrit 25.1 % (36.0-47.0) Mean Corpuscular Volume 106 fL (79-100) Mean Corpuscular Hemoglobin 37 pg (25-35) Mean Corpuscular Hemoglobin Concent 35 g/dL (31-37) Red Cell Distribution Width 22.1 % (11.5-14.5) Platelet Count 146 x10^3/uL (140-400) Neutrophils (%) (Auto) 80 % (31-73) Lymphocytes (%) (Auto) 15 % (24-48) Monocytes (%) (Auto) 5 % (0-9) Eosinophils (%) (Auto) 0 % (0-3) Basophils (%) (Auto) 0 % (0-3) Neutrophils # (Auto) 4.3 x10^3/uL (1.8-7.7) Lymphocytes # (Auto) 0.8 x10^3/uL (1.0-4.8) Monocytes # (Auto) 0.3 x10^3/uL (0.0-1.1) Eosinophils # (Auto) 0.0 x10^3/uL (0.0-0.7) Basophils # (Auto) 0.0 x10^3/uL (0.0-0.2) Sodium Level 139 mmol/L (136-145) Potassium Level 4.8 mmol/L (3.5-5.1) Chloride Level 106 mmol/L (98-107) Carbon Dioxide Level 23 mmol/L (21-32) Anion Gap 10 (6-14) Blood Urea Nitrogen 69 mg/dL (7-20) Creatinine 1.4 mg/dL (0.6-1.0) Estimated GFR (Cockcroft-Gault) 35.7 BUN/Creatinine Ratio 49 (6-20) Glucose Level 99 mg/dL (70-99) Calcium Level 7.6 mg/dL (8.5-10.1) Phosphorus Level 3.5 mg/dL (2.6-4.7) Magnesium Level 3.1 mg/dL (1.8-2.4) Total Bilirubin 0.4 mg/dL (0.2-1.0) Aspartate Amino Transf (AST/SGOT) 28 U/L (15-37) Alanine Aminotransferase (ALT/SGPT) 27 U/L (14-59) Alkaline Phosphatase 182 U/L (46-116) Total Protein 5.2 g/dL (6.4-8.2) Albumin 2.1 g/dL (3.4-5.0) Albumin/Globulin Ratio 0.7 (1.0-1.7) Micro Micro Microbiology 06/20/19 Urine Culture - Final, Complete 06/20/19 Urine Culture Result 1 (YOBANY) - Final, Complete Physical Exam Musculoskeletal: Osteoarthritis Assessment Assessment IMP DEHYDRATION RUFINO-ATN-CR DOWN TO 1.4 ENCEPHALOPATHY DEMENTIA SBO-S/P RELEASE UTI LEFT RENAL ATROPHY PLAN PPN IVF'S DECREASED SURGERY FOLLOWING ANTIBIOTICS MAY HAVE SOME CKD-BASELINE UNKNOWN WILL FOLLOW DANIEL AUSTIN MD Jun 25, 2019 11:09
--- NOTE | 2019-06-25 12:04 | PDOC ---
SURGICAL PROGRESS NOTE Subjective pain managed no nausea Vital Signs Vital Signs Date Time Temp Pulse Resp B/P (MAP) Pulse Ox O2 Delivery O2 Flow Rate FiO2 06/25/19 08:00 Room Air 06/25/19 07:00 98.2 85 18 99/48 (65) 96 2.0 98.2 I&O Intake and Output 06/25/19 07:01 Intake Total 2880 ml Output Total 1585 ml Balance 1295 ml Intake Oral 0 ml IV Total 1440 ml Other 1440 ml Output Urine Total 1175 ml Gastric Drainage Total 400 ml Estimated Blood Loss 10 ml PATIENT HAS A ARDON: Yes General: Alert, Cooperative HEENT: Other (NG in place) Abdomen: Soft, Other (ND, dressing dry) Labs Laboratory Tests Test 06/24/19 05:00 06/25/19 06:00 Sodium Level 138 mmol/L (136-145) 139 mmol/L (136-145) Potassium Level 4.2 mmol/L (3.5-5.1) 4.8 mmol/L (3.5-5.1) Chloride Level 101 mmol/L (98-107) 106 mmol/L (98-107) Carbon Dioxide Level 27 mmol/L (21-32) 23 mmol/L (21-32) Anion Gap 10 (6-14) 10 (6-14) Blood Urea Nitrogen 89 mg/dL (7-20) 69 mg/dL (7-20) Creatinine 1.7 mg/dL (0.6-1.0) 1.4 mg/dL (0.6-1.0) Estimated GFR (Cockcroft-Gault) 28.6 35.7 Glucose Level 96 mg/dL (70-99) 99 mg/dL (70-99) Calcium Level 8.0 mg/dL (8.5-10.1) 7.6 mg/dL (8.5-10.1) White Blood Count 5.4 x10^3/uL (4.0-11.0) Red Blood Count 2.36 x10^6/uL (3.50-5.40) Hemoglobin 8.7 g/dL (12.0-15.5) Hematocrit 25.1 % (36.0-47.0) Mean Corpuscular Volume 106 fL (79-100) Mean Corpuscular Hemoglobin 37 pg (25-35) Mean Corpuscular Hemoglobin Concent 35 g/dL (31-37) Red Cell Distribution Width 22.1 % (11.5-14.5) Platelet Count 146 x10^3/uL (140-400) Neutrophils (%) (Auto) 80 % (31-73) Lymphocytes (%) (Auto) 15 % (24-48) Monocytes (%) (Auto) 5 % (0-9) Eosinophils (%) (Auto) 0 % (0-3) Basophils (%) (Auto) 0 % (0-3) Neutrophils # (Auto) 4.3 x10^3/uL (1.8-7.7) Lymphocytes # (Auto) 0.8 x10^3/uL (1.0-4.8) Monocytes # (Auto) 0.3 x10^3/uL (0.0-1.1) Eosinophils # (Auto) 0.0 x10^3/uL (0.0-0.7) Basophils # (Auto) 0.0 x10^3/uL (0.0-0.2) BUN/Creatinine Ratio 49 (6-20) Phosphorus Level 3.5 mg/dL (2.6-4.7) Magnesium Level 3.1 mg/dL (1.8-2.4) Total Bilirubin 0.4 mg/dL (0.2-1.0) Aspartate Amino Transf (AST/SGOT) 28 U/L (15-37) Alanine Aminotransferase (ALT/SGPT) 27 U/L (14-59) Alkaline Phosphatase 182 U/L (46-116) Total Protein 5.2 g/dL (6.4-8.2) Albumin 2.1 g/dL (3.4-5.0) Albumin/Globulin Ratio 0.7 (1.0-1.7) Laboratory Tests Test 06/25/19 06:00 White Blood Count 5.4 x10^3/uL (4.0-11.0) Red Blood Count 2.36 x10^6/uL (3.50-5.40) Hemoglobin 8.7 g/dL (12.0-15.5) Hematocrit 25.1 % (36.0-47.0) Mean Corpuscular Volume 106 fL (79-100) Mean Corpuscular Hemoglobin 37 pg (25-35) Mean Corpuscular Hemoglobin Concent 35 g/dL (31-37) Red Cell Distribution Width 22.1 % (11.5-14.5) Platelet Count 146 x10^3/uL (140-400) Neutrophils (%) (Auto) 80 % (31-73) Lymphocytes (%) (Auto) 15 % (24-48) Monocytes (%) (Auto) 5 % (0-9) Eosinophils (%) (Auto) 0 % (0-3) Basophils (%) (Auto) 0 % (0-3) Neutrophils # (Auto) 4.3 x10^3/uL (1.8-7.7) Lymphocytes # (Auto) 0.8 x10^3/uL (1.0-4.8) Monocytes # (Auto) 0.3 x10^3/uL (0.0-1.1) Eosinophils # (Auto) 0.0 x10^3/uL (0.0-0.7) Basophils # (Auto) 0.0 x10^3/uL (0.0-0.2) Sodium Level 139 mmol/L (136-145) Potassium Level 4.8 mmol/L (3.5-5.1) Chloride Level 106 mmol/L (98-107) Carbon Dioxide Level 23 mmol/L (21-32) Anion Gap 10 (6-14) Blood Urea Nitrogen 69 mg/dL (7-20) Creatinine 1.4 mg/dL (0.6-1.0) Estimated GFR (Cockcroft-Gault) 35.7 BUN/Creatinine Ratio 49 (6-20) Glucose Level 99 mg/dL (70-99) Calcium Level 7.6 mg/dL (8.5-10.1) Phosphorus Level 3.5 mg/dL (2.6-4.7) Magnesium Level 3.1 mg/dL (1.8-2.4) Total Bilirubin 0.4 mg/dL (0.2-1.0) Aspartate Amino Transf (AST/SGOT) 28 U/L (15-37) Alanine Aminotransferase (ALT/SGPT) 27 U/L (14-59) Alkaline Phosphatase 182 U/L (46-116) Total Protein 5.2 g/dL (6.4-8.2) Albumin 2.1 g/dL (3.4-5.0) Albumin/Globulin Ratio 0.7 (1.0-1.7) Problem List Problems Medical Problems: (1) RUFINO (acute kidney injury) Status: Acute (2) Dehydration Status: Acute (3) Encephalopathy Status: Acute (4) Small bowel obstruction Status: Acute Assessment/Plan s/p release SBO, sB resection NG, bowel rest, await bowel function MOLLY HURT APRN Jun 25, 2019 12:03
[2019-06-25 15:00] VITALS: BP 113/55
[2019-06-25 19:00] VITALS: BP 112/54
[2019-06-25] MEDS: LATANOPROST 0.005% OPHTH SOLUTION 2.5ML BOTTLE. OU SCH (21:52)
[2019-06-25 23:00] VITALS: BP 133/62
[2019-06-26 03:00] VITALS: BP 129/76
--- NOTE | 2019-06-26 03:30 | NUR ---
Ng connections loose and drainage leaked all over bed and a puddle was noted on the floor. Pt co feeling like she cant catch her breath. This RN fixed connections and immediately received 350ml back. RN and aide changed out patient linens and gown. Pt then co nausea and asked for a bucket. Zofran 4mg IV administered. After 20 min RN reassessed pt who says it is better but now having trouble breathing out her nose. Will see if we can get something to help patient with the discomfort.
[2019-06-26] MEDS: ONDANSETRON PF 4 MG/2 ML VIAL. IV PRN ×2 (03:32→21:08)
[2019-06-26 07:00] VITALS: BP 114/57
[2019-06-26] MEDS: LEVOTHYROXINE SODIUM INJ 25 MCG in NORMAL SALINE 5 ML IVP SCH (07:49)
[2019-06-26] MEDS: PANTOPRAZOLE IV PUSH 40 MG VIAL. IVP SCH (07:49)
[2019-06-26 08:13] LABS: BASO % 0 % (0-3); EOS # 0.1 x10^3/uL (0.0-0.7); EOS % 2 % (0-3); HEMATOCRIT 24.5 % (36.0-47.0); HEMOGLOBIN 8.3 g/dL (12.0-15.5); LYMPH # 0.8 x10^3/uL (1.0-4.8); LYMPH % 12 % (24-48); MEAN CORPUSCULAR HEMOGLOBIN 36 pg (25-35); MEAN CORPUSCULAR HGB CONC 34 g/dL (31-37); MEAN CORPUSCULAR VOLUME 106 fL (79-100); MONO # 0.5 x10^3/uL (0.0-1.1); MONO % 9 % (0-9); NEUT # 4.9 x10^3/uL (1.8-7.7); NEUT % 78 % (31-73); PLATELET COUNT 158 x10^3/uL (140-400); RED BLOOD COUNT 2.32 x10^6/uL (3.50-5.40); RED CELL DISTRIBUTION WIDTH 22.2 % (11.5-14.5); WHITE BLOOD COUNT 6.3 x10^3/uL (4.0-11.0)
[2019-06-26 08:22] LABS: ALBUMIN 1.9 g/dL (3.4-5.0); ALBUMIN/GLOBULIN RATIO 0.6 (1.0-1.7); CALCIUM 7.7 mg/dL (8.5-10.1); CREATININE 1.1 mg/dL (0.6-1.0); GFR 47.2; POTASSIUM 4.3 mmol/L (3.5-5.1); TOTAL BILIRUBIN 0.6 mg/dL (0.2-1.0); TOTAL PROTEIN 5.3 g/dL (6.4-8.2)
[2019-06-26] MEDS: IV NORMAL SALINE 1000ML BAG 1,000 ML IV SCH (08:28)
[2019-06-26] MEDS: POTASSIUM CHLORIDE 10 MEQ TABLET.ER. PO SCH (09:00)
[2019-06-26] MEDS: DONEPEZIL HCL 10 MG TABLET. PO SCH (09:00)
[2019-06-26] MEDS: busPIRone 5 MG TABLET. PO SCH ×4 (09:00→21:00)
[2019-06-26] MEDS: AMINO AC 3%/ELECTROLYTE/GLYCER 1,000 ML IV SCH (10:41)
[2019-06-26 11:00] VITALS: BP 118/64
--- NOTE | 2019-06-26 11:06 | PDOC ---
PROGRESS NOTES Chief Complaint Chief Complaint acute abd pain small bowel obstruction, lactate elevated from this metastatic breast cancer malnutrition acute on chronic renal failure, vasomotor, much improved, baseline probably better than I thought cognitive decline, dementia Hx, chronic Small-bowel obstruction secondary to a fibrous adhesion. History of Present Illness History of Present Illness Dr. Mccoy, 06/24 ec-lap, , release small-bowel obstruction, small bowel resection with primary anastomosis. renal funciton better still getting a lot of fluid out of NG pain is minimal, change to TPN as no flatus, and still needs NG Vitals Vitals Vital Signs Date Time Temp Pulse Resp B/P (MAP) Pulse Ox O2 Delivery O2 Flow Rate FiO2 06/26/19 07:00 97.5 81 16 114/57 (76) 96 Room Air 97.5 06/25/19 07:00 2.0 Physical Exam General: Alert, Cooperative Heart: Regular rate, Normal S2 Lungs: Clear Abdomen: Soft, Other (ND, dressing dry) Extremities: No clubbing, No cyanosis Skin: No breakdown Labs LABS Laboratory Tests Test 06/26/19 08:00 White Blood Count 6.3 x10^3/uL (4.0-11.0) Red Blood Count 2.32 x10^6/uL (3.50-5.40) Hemoglobin 8.3 g/dL (12.0-15.5) Hematocrit 24.5 % (36.0-47.0) Mean Corpuscular Volume 106 fL (79-100) Mean Corpuscular Hemoglobin 36 pg (25-35) Mean Corpuscular Hemoglobin Concent 34 g/dL (31-37) Red Cell Distribution Width 22.2 % (11.5-14.5) Platelet Count 158 x10^3/uL (140-400) Neutrophils (%) (Auto) 78 % (31-73) Lymphocytes (%) (Auto) 12 % (24-48) Monocytes (%) (Auto) 9 % (0-9) Eosinophils (%) (Auto) 2 % (0-3) Basophils (%) (Auto) 0 % (0-3) Neutrophils # (Auto) 4.9 x10^3/uL (1.8-7.7) Lymphocytes # (Auto) 0.8 x10^3/uL (1.0-4.8) Monocytes # (Auto) 0.5 x10^3/uL (0.0-1.1) Eosinophils # (Auto) 0.1 x10^3/uL (0.0-0.7) Basophils # (Auto) 0.0 x10^3/uL (0.0-0.2) Sodium Level 138 mmol/L (136-145) Potassium Level 4.3 mmol/L (3.5-5.1) Chloride Level 105 mmol/L (98-107) Carbon Dioxide Level 24 mmol/L (21-32) Anion Gap 9 (6-14) Blood Urea Nitrogen 50 mg/dL (7-20) Creatinine 1.1 mg/dL (0.6-1.0) Estimated GFR (Cockcroft-Gault) 47.2 BUN/Creatinine Ratio 45 (6-20) Glucose Level 94 mg/dL (70-99) Calcium Level 7.7 mg/dL (8.5-10.1) Total Bilirubin 0.6 mg/dL (0.2-1.0) Aspartate Amino Transf (AST/SGOT) 25 U/L (15-37) Alanine Aminotransferase (ALT/SGPT) 19 U/L (14-59) Alkaline Phosphatase 178 U/L (46-116) Total Protein 5.3 g/dL (6.4-8.2) Albumin 1.9 g/dL (3.4-5.0) Albumin/Globulin Ratio 0.6 (1.0-1.7) Assessment and Plan Assessmemt and Plan Problems Medical Problems: (1) RUFINO (acute kidney injury) Status: Acute (2) Dehydration Status: Acute (3) Encephalopathy Status: Acute (4) Small bowel obstruction Status: Acute Comment Review of Relevant I have reviewed the following items lola (where applicable) has been applied. Labs Laboratory Tests Test 06/25/19 06:00 06/26/19 08:00 White Blood Count 5.4 x10^3/uL (4.0-11.0) 6.3 x10^3/uL (4.0-11.0) Red Blood Count 2.36 x10^6/uL (3.50-5.40) 2.32 x10^6/uL (3.50-5.40) Hemoglobin 8.7 g/dL (12.0-15.5) 8.3 g/dL (12.0-15.5) Hematocrit 25.1 % (36.0-47.0) 24.5 % (36.0-47.0) Mean Corpuscular Volume 106 fL (79-100) 106 fL (79-100) Mean Corpuscular Hemoglobin 37 pg (25-35) 36 pg (25-35) Mean Corpuscular Hemoglobin Concent 35 g/dL (31-37) 34 g/dL (31-37) Red Cell Distribution Width 22.1 % (11.5-14.5) 22.2 % (11.5-14.5) Platelet Count 146 x10^3/uL (140-400) 158 x10^3/uL (140-400) Neutrophils (%) (Auto) 80 % (31-73) 78 % (31-73) Lymphocytes (%) (Auto) 15 % (24-48) 12 % (24-48) Monocytes (%) (Auto) 5 % (0-9) 9 % (0-9) Eosinophils (%) (Auto) 0 % (0-3) 2 % (0-3) Basophils (%) (Auto) 0 % (0-3) 0 % (0-3) Neutrophils # (Auto) 4.3 x10^3/uL (1.8-7.7) 4.9 x10^3/uL (1.8-7.7) Lymphocytes # (Auto) 0.8 x10^3/uL (1.0-4.8) 0.8 x10^3/uL (1.0-4.8) Monocytes # (Auto) 0.3 x10^3/uL (0.0-1.1) 0.5 x10^3/uL (0.0-1.1) Eosinophils # (Auto) 0.0 x10^3/uL (0.0-0.7) 0.1 x10^3/uL (0.0-0.7) Basophils # (Auto) 0.0 x10^3/uL (0.0-0.2) 0.0 x10^3/uL (0.0-0.2) Sodium Level 139 mmol/L (136-145) 138 mmol/L (136-145) Potassium Level 4.8 mmol/L (3.5-5.1) 4.3 mmol/L (3.5-5.1) Chloride Level 106 mmol/L (98-107) 105 mmol/L (98-107) Carbon Dioxide Level 23 mmol/L (21-32) 24 mmol/L (21-32) Anion Gap 10 (6-14) 9 (6-14) Blood Urea Nitrogen 69 mg/dL (7-20) 50 mg/dL (7-20) Creatinine 1.4 mg/dL (0.6-1.0) 1.1 mg/dL (0.6-1.0) Estimated GFR (Cockcroft-Gault) 35.7 47.2 BUN/Creatinine Ratio 49 (6-20) 45 (6-20) Glucose Level 99 mg/dL (70-99) 94 mg/dL (70-99) Calcium Level 7.6 mg/dL (8.5-10.1) 7.7 mg/dL (8.5-10.1) Phosphorus Level 3.5 mg/dL (2.6-4.7) Magnesium Level 3.1 mg/dL (1.8-2.4) Total Bilirubin 0.4 mg/dL (0.2-1.0) 0.6 mg/dL (0.2-1.0) Aspartate Amino Transf (AST/SGOT) 28 U/L (15-37) 25 U/L (15-37) Alanine Aminotransferase (ALT/SGPT) 27 U/L (14-59) 19 U/L (14-59) Alkaline Phosphatase 182 U/L (46-116) 178 U/L (46-116) Total Protein 5.2 g/dL (6.4-8.2) 5.3 g/dL (6.4-8.2) Albumin 2.1 g/dL (3.4-5.0) 1.9 g/dL (3.4-5.0) Albumin/Globulin Ratio 0.7 (1.0-1.7) 0.6 (1.0-1.7) Laboratory Tests Test 06/26/19 08:00 White Blood Count 6.3 x10^3/uL (4.0-11.0) Red Blood Count 2.32 x10^6/uL (3.50-5.40) Hemoglobin 8.3 g/dL (12.0-15.5) Hematocrit 24.5 % (36.0-47.0) Mean Corpuscular Volume 106 fL (79-100) Mean Corpuscular Hemoglobin 36 pg (25-35) Mean Corpuscular Hemoglobin Concent 34 g/dL (31-37) Red Cell Distribution Width 22.2 % (11.5-14.5) Platelet Count 158 x10^3/uL (140-400) Neutrophils (%) (Auto) 78 % (31-73) Lymphocytes (%) (Auto) 12 % (24-48) Monocytes (%) (Auto) 9 % (0-9) Eosinophils (%) (Auto) 2 % (0-3) Basophils (%) (Auto) 0 % (0-3) Neutrophils # (Auto) 4.9 x10^3/uL (1.8-7.7) Lymphocytes # (Auto) 0.8 x10^3/uL (1.0-4.8) Monocytes # (Auto) 0.5 x10^3/uL (0.0-1.1) Eosinophils # (Auto) 0.1 x10^3/uL (0.0-0.7) Basophils # (Auto) 0.0 x10^3/uL (0.0-0.2) Sodium Level 138 mmol/L (136-145) Potassium Level 4.3 mmol/L (3.5-5.1) Chloride Level 105 mmol/L (98-107) Carbon Dioxide Level 24 mmol/L (21-32) Anion Gap 9 (6-14) Blood Urea Nitrogen 50 mg/dL (7-20) Creatinine 1.1 mg/dL (0.6-1.0) Estimated GFR (Cockcroft-Gault) 47.2 BUN/Creatinine Ratio 45 (6-20) Glucose Level 94 mg/dL (70-99) Calcium Level 7.7 mg/dL (8.5-10.1) Total Bilirubin 0.6 mg/dL (0.2-1.0) Aspartate Amino Transf (AST/SGOT) 25 U/L (15-37) Alanine Aminotransferase (ALT/SGPT) 19 U/L (14-59) Alkaline Phosphatase 178 U/L (46-116) Total Protein 5.3 g/dL (6.4-8.2) Albumin 1.9 g/dL (3.4-5.0) Albumin/Globulin Ratio 0.6 (1.0-1.7) Microbiology 06/20/19 Urine Culture - Final, Complete 06/20/19 Urine Culture Result 1 (YOBANY) - Final, Complete Medications Current Medications Potassium Chloride/Sodium Chloride 1,000 ml @ 125 mls/hr Q8H IV Last administered on 06/20/19at 07:57; Start 06/19/19 at 22:15; Stop 06/20/19 at 08:50; Status DC Throat Lozenges (Chloraseptic) 1 spray PRN Q2HR PRN PO SORE THROAT, 2ND CHOICE; Start 06/19/19 at 22:15 Throat Lozenges (Cepacol Sore Throat Lozenge) 1 juan PRN Q2HRS PRN PO SORE THROAT, 1ST CHOICE; Start 06/19/19 at 22:15 Sodium Chloride 250 ml @ 250 mls/hr 1X ONCE IV Last administered on 06/20/19at 03:24; Start 06/20/19 at 02:45; Stop 06/20/19 at 03:45; Status DC Ondansetron HCl (Zofran) 4 mg PRN Q6HRS PRN IV NAUSEA/VOMITING Last administered on 06/26/19at 03:32; Start 06/20/19 at 08:00 Buspirone HCl (Buspar) 5 mg QID PO ; Start 06/20/19 at 09:00 Donepezil HCl (Aricept) 10 mg DAILY PO ; Start 06/20/19 at 09:00 Latanoprost (Xalatan) 1 drop QHS OU Last administered on 06/25/19at 21:53; Start 06/20/19 at 21:00 Levothyroxine Sodium (Synthroid) 50 mcg DAILYAC PO ; Start 06/20/19 at 09:00; Stop 06/22/19 at 15:39; Status DC Lorazepam (Ativan) 0.5 mg PRN Q4HRS PRN PO ANXIETY / AGITATION; Start 06/20/19 at 08:45 Potassium Chloride (Klor-Con) 10 meq DAILY PO ; Start 06/20/19 at 09:00 Non-Formulary Medication (Melatonin ) 1 tab QHS PO ; Start 06/20/19 at 21:00; Status UNV Pantoprazole Sodium (Protonix) 40 mg DAILYAC PO ; Start 06/20/19 at 09:00; Stop 06/21/19 at 22:23; Status DC Ondansetron HCl (Zofran Odt) 4 mg PRN Q6HRS PRN PO NAUSEA/VOMITING Last administered on 06/22/19at 05:57; Start 06/20/19 at 09:00 Amino Acids/ Glycerin/ Electrolytes 1,000 ml @ 80 mls/hr [id number] IV Last administered on 06/26/19at 10:41; Start 06/20/19 at 09:00 Sodium Chloride 1,000 ml @ 1,000 mls/hr 1X ONCE IV Last administered on 06/20/19at 13:50; Start 06/20/19 at 13:30; Stop 06/20/19 at 14:29; Status DC Methylprednisolone Sodium Succinate (SOLU-Medrol 125MG VIAL) 125 mg 1X ONCE IV Last administered on 06/21/19at 17:15; Start 06/21/19 at 18:00; Stop 06/21/19 at 18:01; Status DC Methylprednisolone Sodium Succinate (SOLU-Medrol 125MG VIAL) 125 mg 1X ONCE IV Last administered on 06/22/19at 01:38; Start 06/22/19 at 00:00; Stop 06/22/19 at 00:01; Status DC Methylprednisolone Sodium Succinate (SOLU-Medrol 125MG VIAL) 125 mg 1X ONCE IV Last administered on 06/22/19at 05:43; Start 06/22/19 at 06:00; Stop 06/22/19 at 06:01; Status DC Diphenhydramine HCl (Benadryl) 50 mg 1X ONCE IVP Last administered on 06/22/19at 07:46; Start 06/22/19 at 07:00; Stop 06/22/19 at 07:01; Status DC Sodium Chloride 500 ml @ 500 mls/hr 1X ONCE IV Last administered on 06/21/19at 15:38; Start 06/21/19 at 15:30; Stop 06/21/19 at 16:29; Status DC Levofloxacin (Levaquin) 250 mg DAILY06 PO ; Start 06/22/19 at 06:00; Stop 06/21/19 at 22:23; Status DC Levofloxacin/ Dextrose 50 ml @ 50 mls/hr Q24H IV ; Start 06/21/19 at 22:30; Stop 06/21/19 at 22:34; Status DC Pantoprazole Sodium (PROTONIX VIAL for IV PUSH) 40 mg DAILYAC IVP Last administered on 06/26/19at 07:49; Start 06/22/19 at 07:30 Levofloxacin/ Dextrose 50 ml @ 50 mls/hr Q24H IV Last administered on 06/22/19at 05:43; Start 06/22/19 at 06:00; Stop 06/22/19 at 13:57; Status DC Iohexol (Omnipaque 300 Mg/ml) 400 ml 1X ONCE PO ; Start 06/22/19 at 07:45; Stop 06/22/19 at 07:50; Status DC Info (CONTRAST GIVEN -- Rx MONITORING) 1 each PRN DAILY PRN MC SEE COMMENTS; Start 06/22/19 at 08:00; Stop 06/24/19 at 07:59; Status DC Sodium Chloride 1,000 ml @ 100 mls/hr 1X ONCE IV Last administered on 06/22/19at 11:40; Start 06/22/19 at 11:15; Stop 06/22/19 at 21:14; Status DC Levothyroxine Sodium 25 mcg/ Sodium Chloride 5 ml @ 100 mls/hr Q72H IVP Last administered on 06/26/19at 07:49; Start 06/26/19 at 06:00 Sodium Chloride 1,000 ml @ 100 mls/hr 1X ONCE IV Last administered on 06/23/19at 11:59; Start 06/23/19 at 11:45; Stop 06/23/19 at 21:44; Status DC Propofol 20 ml @ As Directed STK-MED ONCE IV ; Start 06/24/19 at 09:27; Stop 06/24/19 at 09:28; Status DC Lidocaine HCl (Lidocaine Pf 2% Vial) 5 ml STK-MED ONCE .ROUTE ; Start 06/24/19 at 09:27; Stop 06/24/19 at 09:28; Status DC Rocuronium [place] (Zemuron) 50 mg STK-MED ONCE .ROUTE ; Start 06/24/19 at 09:28; Stop 06/24/19 at 09:28; Status DC Fentanyl Citrate (Fentanyl 2ml Vial) 100 mcg STK-MED ONCE .ROUTE ; Start 06/24/19 at 09:28; Stop 06/24/19 at 09:28; Status DC Cefazolin Sodium/ Dextrose 50 ml @ 100 mls/hr 1X PREOP PRN IV protocol Last administered on 06/24/19at 11:37; Start 06/24/19 at 06:00; Stop 06/24/19 at 15:00; Status DC Fentanyl Citrate (Fentanyl 2ml Vial) 25 mcg PRN Q5MIN PRN IV MILD PAIN 1-3 Last administered on 06/24/19at 13:48; Start 06/24/19 at 10:00; Stop 06/25/19 at 09:59; Status DC Fentanyl Citrate (Fentanyl 2ml Vial) 50 mcg PRN Q5MIN PRN IV MODERATE TO SEVERE PAIN Last administered on 06/24/19at 14:08; Start 06/24/19 at 10:00; Stop 06/25/19 at 09:59; Status DC Morphine Sulfate (Morphine Sulfate) 1 mg PRN Q10MIN PRN IV SEVERE PAIN 7-10; Start 06/24/19 at 10:00; Stop 06/25/19 at 09:59; Status DC Ringer's Solution 1,000 ml @ 30 mls/hr Q24H IV ; Start 06/24/19 at 10:00; Stop 06/24/19 at 10:14; Status DC Hydromorphone HCl (Dilaudid) 0.5 mg PRN Q10MIN PRN IV SEV PAIN, Second choice; Start 06/24/19 at 10:00; Stop 06/25/19 at 09:59; Status DC Prochlorperazine Edisylate (Compazine) 5 mg PACU PRN PRN IV NAUSEA, MRX1 Last administered on 06/24/19at 13:27; Start 06/24/19 at 10:00; Stop 06/25/19 at 09:59; Status DC Sodium Chloride 1,000 ml @ 40 mls/hr Q24H IV Last administered on 06/24/19at 14:16; Start 06/24/19 at 10:15 Bupivacaine HCl/ Epinephrine Bitart (Sensorcain-Mpf Epi 0.5%-1:[id number]) 30 ml 1X ONCE INJ Last administered on 8/16/19at 12:53; Start 06/24/19 at 10:30; Stop 06/24/19 at 10:31; Status DC Desflurane (Suprane) 60 ml STK-MED ONCE IH ; Start 06/24/19 at 11:14; Stop 06/24/19 at 11:15; Status DC Ondansetron HCl (Zofran) 4 mg STK-MED ONCE .ROUTE ; Start 06/24/19 at 11:16; Stop 06/24/19 at 11:16; Status DC Dexamethasone Sodium Phosphate (Decadron) 4 mg STK-MED ONCE .ROUTE ; Start 06/24/19 at 11:17; Stop 06/24/19 at 11:17; Status DC Phenylephrine HCl (PHENYLEPHRINE in 0.9% NACL PF) 1 mg STK-MED ONCE IV ; Start 06/24/19 at 11:21; Stop 06/24/19 at 11:21; Status DC Sodium Chloride 1,000 ml @ 100 mls/hr 1X ONCE IV ; Start 06/24/19 at 11:30; Stop 06/24/19 at 21:29; Status DC Ephedrine Sulfate (ePHEDrine PF IN SALINE SYRINGE) 50 mg STK-MED ONCE IV ; Start 06/24/19 at 11:26; Stop 06/24/19 at 11:26; Status DC Ondansetron HCl (Zofran) 4 mg STK-MED ONCE .ROUTE ; Start 06/24/19 at 11:38; Stop 06/24/19 at 11:38; Status DC Neostigmine Methylsulfate (Neostigmine Methylsulfate) 5 mg STK-MED ONCE .ROUTE ; Start 06/24/19 at 11:39; Stop 06/24/19 at 11:39; Status DC Glycopyrrolate (Robinul) 1 mg STK-MED ONCE .ROUTE ; Start 06/24/19 at 11:39; Stop 06/24/19 at 11:39; Status DC Prochlorperazine Edisylate (Compazine) 10 mg STK-MED ONCE .ROUTE ; Start 06/24/19 at 12:59; Stop 06/24/19 at 13:00; Status DC Fentanyl Citrate (Fentanyl 2ml Vial) 100 mcg STK-MED ONCE .ROUTE ; Start 06/24/19 at 13:08; Stop 06/24/19 at 13:08; Status DC Sodium Chloride (Normal Saline Flush) 3 ml QSHIFT PRN IV AFTER MEDS AND BLOOD DRAWS; Start 06/24/19 at 13:15 Naloxone HCl (Narcan) 0.4 mg PRN Q2MIN PRN IV SEE INSTRUCTIONS; Start 06/24/19 at 13:15 Sodium Chloride 1,000 ml @ 25 mls/hr Q24H IV ; Start 06/24/19 at 13:14; Stop 06/25/19 at 11:05; Status DC Morphine Sulfate (Morphine Sulfate) 4 mg PRN Q4HRS PRN IV MODERATE TO SEVERE PAIN Last administered on 06/24/19at 20:50; Start 06/24/19 at 13:15 Sodium Chloride 1,000 ml @ 100 mls/hr 1X ONCE IV Last administered on 06/25/19at 11:04; Start 06/25/19 at 10:30; Stop 06/25/19 at 20:29; Status DC Active Scripts Active Reported Aspirin 81 Mg Tab.chew 1 Tab PO DAILY Ultram (Tramadol Hcl) 50 Mg Tablet 50 Mg PO Q4HRS PRN Potassium Chloride 10 Meq Tab.sr.24h 10 Meq PO DAILY Namenda (Memantine Hcl) 10 Mg Tablet 10 Mg PO BID Zofran (Ondansetron Hcl) 4 Mg Tablet 1 Tab PO PRN Q6-8HRS Imodium A-D (Loperamide Hcl) 1 Mg/7.5 Ml Liquid 1 Mg PO PRN PRN Omeprazole 20 Mg Tablet.dr 1 Tab PO DAILY Acetaminophen 325 Mg Tablet 325 Mg PO Q4HRS Donepezil Hcl 10 Mg Tablet 1 Tab PO DAILY Xeloda (Capecitabine) 500 Mg Tablet 2,000 Mg PO Q12HR Buspirone Hcl 5 Mg Tablet 1 Tab PO QID Melatonin 3 Mg Tablet 1 Tab PO QHS Levothyroxine Sodium 50 Mcg Tablet 50 Mcg PO DAILYAC Cerefolin Nac Caplet (Lmfol Ca/Acetyl/Mb12/Algal Oil) 1 Each Tablet 1 Each PO DAILY Xalatan (Latanoprost) 2.5 Ml Drops 1 Drop EACHEYE QHS Magnesium Oxide 400 Mg Tablet 1 Tab PO TID Pepcid (Famotidine) 20 Mg Tablet 20 Mg PO DAILY Ativan (Lorazepam) 0.5 Mg Tablet 0.5 Mg PO Q4HRS PRN Vitals/I & O Vital Sign - Last 24 Hours 06/25/19 06/25/19 06/25/19 06/25/19 15:00 19:00 20:00 23:00 Temp 97.9 97.8 97.8 97.9 97.8 97.8 Pulse 85 85 91 Resp 18 18 18 B/P (MAP) 113/55 (74) 112/54 (73) 133/62 (85) Pulse Ox 99 93 95 O2 Delivery Room Air Room Air Room Air Room Air 06/26/19 06/26/19 03:00 07:00 Temp 97.8 97.5 97.8 97.5 Pulse 87 81 Resp 18 16 B/P (MAP) 129/76 (93) 114/57 (76) Pulse Ox 96 96 O2 Delivery Room Air Room Air Intake and Output 06/25/19 06/25/19 06/26/19 15:00 23:00 07:00 Intake Total 560 ml Output Total 300 ml 700 ml 750 ml Balance 260 ml -700 ml -750 ml Nutrition Consultation Dietary Evaluation: Recommendations by RD: PPN/TPN Comments: continue with PPN until able to advance diet Expected Outcomes/Goals: to meet > 75% est nutr needs via po intake- not met, goal ongoing Malnutrition Findings: Muscle Mass (Severe): Severe Depletion Food and Nutrition Intake (Sev: <50% est energy req 5days Body Fat Depletion (Non Severe: Mod to Severe Weight Status: Underweight ZUHAIR RIVERA MD Jun 26, 2019 11:06
[2019-06-26] MEDS ORDERED: IV NORMAL SALINE 1000ML BAG 1,000 ML IV ONE (11:15)
--- NOTE | 2019-06-26 12:00 | PDOC ---
Renal-Progress Notes Subjective Notes Notes NO CHANGES History of Present Illness Hx of present illness STABLE, WAITING FOR FLATUS Vitals Vitals Vital Signs Date Time Temp Pulse Resp B/P (MAP) Pulse Ox O2 Delivery O2 Flow Rate FiO2 06/26/19 07:00 97.5 81 16 114/57 (76) 96 Room Air 97.5 06/25/19 07:00 2.0 Weight Weight [ ] I.O. Intake and Output Intake and Output 06/26/19 07:00 Intake Total 560 ml Output Total 1750 ml Balance -1190 ml IV Total 560 ml Output Urine Total 1450 ml Gastric Drainage Total 300 ml Labs Labs Laboratory Tests Test 06/26/19 08:00 White Blood Count 6.3 x10^3/uL (4.0-11.0) Red Blood Count 2.32 x10^6/uL (3.50-5.40) Hemoglobin 8.3 g/dL (12.0-15.5) Hematocrit 24.5 % (36.0-47.0) Mean Corpuscular Volume 106 fL (79-100) Mean Corpuscular Hemoglobin 36 pg (25-35) Mean Corpuscular Hemoglobin Concent 34 g/dL (31-37) Red Cell Distribution Width 22.2 % (11.5-14.5) Platelet Count 158 x10^3/uL (140-400) Neutrophils (%) (Auto) 78 % (31-73) Lymphocytes (%) (Auto) 12 % (24-48) Monocytes (%) (Auto) 9 % (0-9) Eosinophils (%) (Auto) 2 % (0-3) Basophils (%) (Auto) 0 % (0-3) Neutrophils # (Auto) 4.9 x10^3/uL (1.8-7.7) Lymphocytes # (Auto) 0.8 x10^3/uL (1.0-4.8) Monocytes # (Auto) 0.5 x10^3/uL (0.0-1.1) Eosinophils # (Auto) 0.1 x10^3/uL (0.0-0.7) Basophils # (Auto) 0.0 x10^3/uL (0.0-0.2) Sodium Level 138 mmol/L (136-145) Potassium Level 4.3 mmol/L (3.5-5.1) Chloride Level 105 mmol/L (98-107) Carbon Dioxide Level 24 mmol/L (21-32) Anion Gap 9 (6-14) Blood Urea Nitrogen 50 mg/dL (7-20) Creatinine 1.1 mg/dL (0.6-1.0) Estimated GFR (Cockcroft-Gault) 47.2 BUN/Creatinine Ratio 45 (6-20) Glucose Level 94 mg/dL (70-99) Calcium Level 7.7 mg/dL (8.5-10.1) Total Bilirubin 0.6 mg/dL (0.2-1.0) Aspartate Amino Transf (AST/SGOT) 25 U/L (15-37) Alanine Aminotransferase (ALT/SGPT) 19 U/L (14-59) Alkaline Phosphatase 178 U/L (46-116) Total Protein 5.3 g/dL (6.4-8.2) Albumin 1.9 g/dL (3.4-5.0) Albumin/Globulin Ratio 0.6 (1.0-1.7) Micro Micro Microbiology 06/20/19 Urine Culture - Final, Complete 06/20/19 Urine Culture Result 1 (YOBANY) - Final, Complete Review of Systems Constitutional: yes: alert Ears/Nose/Throat: Yes: no symptom reported Eyes: Yes: no symptom reported Pulmonary: Yes no symptom reported Cardiovascular: Yes no symptom reported Gastrointestional: Yes: epigastric pain Genitourinary: Yes: no symptom reported Musculoskeletal: Yes: no symptom reported Skin: Yes no symptom reported Psychiatric/Neurological: Yes: no symptom reported Endocrine: Yes: no symptom reported Physical Exam General Appearance: no apparent distress Skin: warm Respiratory: decreased breath sounds Heart: [id number] Abdomen: soft Genitourinary: bladder flat Extremities: pulses present Neurology: alert Musculoskeletal: Osteoarthritis Assessment Assessment IMP DEHYDRATION [id number] RESOLVED ENCEPHALOPATHY DEMENTIA SBO-S/P RELEASE UTI LEFT RENAL ATROPHY PLAN PPN TO TPN NOTED IVF'S DECREASED SURGERY FOLLOWING ANTIBIOTICS MAY HAVE SOME CKD-BASELINE UNKNOWN WILL FOLLOW DANIEL AUSTIN MD Jun 26, 2019 12:00
--- NOTE | 2019-06-26 12:09 | PDOC ---
SURGICAL PROGRESS NOTE Subjective pain managed no flatus Vital Signs Vital Signs Date Time Temp Pulse Resp B/P (MAP) Pulse Ox O2 Delivery O2 Flow Rate FiO2 06/26/19 07:00 97.5 81 16 114/57 (76) 96 Room Air 97.5 06/25/19 07:00 2.0 I&O Intake and Output 06/26/19 07:00 Intake Total 560 ml Output Total 1750 ml Balance -1190 ml IV Total 560 ml Output Urine Total 1450 ml Gastric Drainage Total 300 ml PATIENT HAS A ARDON: Yes (dc today) General: Alert, Oriented X3, Cooperative, No acute distress HEENT: Other (ng in place) Abdomen: Soft, Other (dressing dry) Labs Laboratory Tests Test 06/25/19 06:00 06/26/19 08:00 White Blood Count 5.4 x10^3/uL (4.0-11.0) 6.3 x10^3/uL (4.0-11.0) Red Blood Count 2.36 x10^6/uL (3.50-5.40) 2.32 x10^6/uL (3.50-5.40) Hemoglobin 8.7 g/dL (12.0-15.5) 8.3 g/dL (12.0-15.5) Hematocrit 25.1 % (36.0-47.0) 24.5 % (36.0-47.0) Mean Corpuscular Volume 106 fL (79-100) 106 fL (79-100) Mean Corpuscular Hemoglobin 37 pg (25-35) 36 pg (25-35) Mean Corpuscular Hemoglobin Concent 35 g/dL (31-37) 34 g/dL (31-37) Red Cell Distribution Width 22.1 % (11.5-14.5) 22.2 % (11.5-14.5) Platelet Count 146 x10^3/uL (140-400) 158 x10^3/uL (140-400) Neutrophils (%) (Auto) 80 % (31-73) 78 % (31-73) Lymphocytes (%) (Auto) 15 % (24-48) 12 % (24-48) Monocytes (%) (Auto) 5 % (0-9) 9 % (0-9) Eosinophils (%) (Auto) 0 % (0-3) 2 % (0-3) Basophils (%) (Auto) 0 % (0-3) 0 % (0-3) Neutrophils # (Auto) 4.3 x10^3/uL (1.8-7.7) 4.9 x10^3/uL (1.8-7.7) Lymphocytes # (Auto) 0.8 x10^3/uL (1.0-4.8) 0.8 x10^3/uL (1.0-4.8) Monocytes # (Auto) 0.3 x10^3/uL (0.0-1.1) 0.5 x10^3/uL (0.0-1.1) Eosinophils # (Auto) 0.0 x10^3/uL (0.0-0.7) 0.1 x10^3/uL (0.0-0.7) Basophils # (Auto) 0.0 x10^3/uL (0.0-0.2) 0.0 x10^3/uL (0.0-0.2) Sodium Level 139 mmol/L (136-145) 138 mmol/L (136-145) Potassium Level 4.8 mmol/L (3.5-5.1) 4.3 mmol/L (3.5-5.1) Chloride Level 106 mmol/L (98-107) 105 mmol/L (98-107) Carbon Dioxide Level 23 mmol/L (21-32) 24 mmol/L (21-32) Anion Gap 10 (6-14) 9 (6-14) Blood Urea Nitrogen 69 mg/dL (7-20) 50 mg/dL (7-20) Creatinine 1.4 mg/dL (0.6-1.0) 1.1 mg/dL (0.6-1.0) Estimated GFR (Cockcroft-Gault) 35.7 47.2 BUN/Creatinine Ratio 49 (6-20) 45 (6-20) Glucose Level 99 mg/dL (70-99) 94 mg/dL (70-99) Calcium Level 7.6 mg/dL (8.5-10.1) 7.7 mg/dL (8.5-10.1) Phosphorus Level 3.5 mg/dL (2.6-4.7) Magnesium Level 3.1 mg/dL (1.8-2.4) Total Bilirubin 0.4 mg/dL (0.2-1.0) 0.6 mg/dL (0.2-1.0) Aspartate Amino Transf (AST/SGOT) 28 U/L (15-37) 25 U/L (15-37) Alanine Aminotransferase (ALT/SGPT) 27 U/L (14-59) 19 U/L (14-59) Alkaline Phosphatase 182 U/L (46-116) 178 U/L (46-116) Total Protein 5.2 g/dL (6.4-8.2) 5.3 g/dL (6.4-8.2) Albumin 2.1 g/dL (3.4-5.0) 1.9 g/dL (3.4-5.0) Albumin/Globulin Ratio 0.7 (1.0-1.7) 0.6 (1.0-1.7) Laboratory Tests Test 06/26/19 08:00 White Blood Count 6.3 x10^3/uL (4.0-11.0) Red Blood Count 2.32 x10^6/uL (3.50-5.40) Hemoglobin 8.3 g/dL (12.0-15.5) Hematocrit 24.5 % (36.0-47.0) Mean Corpuscular Volume 106 fL (79-100) Mean Corpuscular Hemoglobin 36 pg (25-35) Mean Corpuscular Hemoglobin Concent 34 g/dL (31-37) Red Cell Distribution Width 22.2 % (11.5-14.5) Platelet Count 158 x10^3/uL (140-400) Neutrophils (%) (Auto) 78 % (31-73) Lymphocytes (%) (Auto) 12 % (24-48) Monocytes (%) (Auto) 9 % (0-9) Eosinophils (%) (Auto) 2 % (0-3) Basophils (%) (Auto) 0 % (0-3) Neutrophils # (Auto) 4.9 x10^3/uL (1.8-7.7) Lymphocytes # (Auto) 0.8 x10^3/uL (1.0-4.8) Monocytes # (Auto) 0.5 x10^3/uL (0.0-1.1) Eosinophils # (Auto) 0.1 x10^3/uL (0.0-0.7) Basophils # (Auto) 0.0 x10^3/uL (0.0-0.2) Sodium Level 138 mmol/L (136-145) Potassium Level 4.3 mmol/L (3.5-5.1) Chloride Level 105 mmol/L (98-107) Carbon Dioxide Level 24 mmol/L (21-32) Anion Gap 9 (6-14) Blood Urea Nitrogen 50 mg/dL (7-20) Creatinine 1.1 mg/dL (0.6-1.0) Estimated GFR (Cockcroft-Gault) 47.2 BUN/Creatinine Ratio 45 (6-20) Glucose Level 94 mg/dL (70-99) Calcium Level 7.7 mg/dL (8.5-10.1) Total Bilirubin 0.6 mg/dL (0.2-1.0) Aspartate Amino Transf (AST/SGOT) 25 U/L (15-37) Alanine Aminotransferase (ALT/SGPT) 19 U/L (14-59) Alkaline Phosphatase 178 U/L (46-116) Total Protein 5.3 g/dL (6.4-8.2) Albumin 1.9 g/dL (3.4-5.0) Albumin/Globulin Ratio 0.6 (1.0-1.7) Problem List Problems Medical Problems: (1) RUFINO (acute kidney injury) Status: Acute (2) Dehydration Status: Acute (3) Encephalopathy Status: Acute (4) Small bowel obstruction Status: Acute Assessment/Plan s/p SBR continue NG, await bowel dc nG ambulate MOLLY HURT APRN Jun 26, 2019 12:09
[2019-06-26] MEDS: ENOXAPARIN 30 MG/0.3 ML SYRINGE. SQ SCH (12:51)
[2019-06-26] MEDS: TPN PER PHARMACY MC PRN (13:59)
--- NOTE | 2019-06-26 13:59 | NUR ---
Pharmacy TPN Dosing Note S: ROSA SCHREIBER is a 84 year old F Currently receiving Central Continuous TPN started 06/26/19 B:Pertinent PMH: SBO S/P RESECTION 06/24 Height: 5 feet, 6 inches Weight: 48.438730 kg Current diet: NPO LABS: Sodium: 138 Potassium: 4.3 Chloride: 105 Calcium: 7.7 Corrected Calcium: 9.38 Magnesium: 3.1 CO2: 105 SCr: 1.1 Glucose: 94 Albumin: 1.9 AST: 25 ALT: 19 TPN FORMULA: TPN TYPE: Central Continuous AMINO ACIDS: 65 gm DEXTROSE: 195 gm LIPIDS: 20 gm SODIUM CHLORIDE: 90 mEq SODIUM ACETATE: mEq SODIUM PHOSPHATE: mmol POTASSIUM CHLORIDE: 50 mEq POTASSIUM ACETATE: mEq POTASSIUM PHOSPHATE: 13.6 mmol MAGNESIUM: 10 mEq CALCIUM: 10 mEq INSULIN: units MULTIPLE VITAMIN: 10 ml TRACE ELEMENTS: MTE 5 1ML ml(s) TPN PLAN: Pt with SBO with resection 06/24, slow return of bowel function, continued n/v. Pt with pre-existing malnutrition 2/2 breast cancer/chemo. Has renal failure that appears to be resolving. Will start standard TPN with volume 1200 ml instead of 1500 due to pt weight, can assess fluid status daily. Standard electrolytes despite renal failure and normal to high plasma levels; pt is high risk for refeeding due to age, malignancy, and recent bowel surgery. BMP/phos/mg/trig in AM. R: Begin TPN ABVOE. Will monitor electrolytes, glucose, and tolerance to TPN. ANSELMO SAAVEDRA [facility], 06/26/19 [id number]
[2019-06-26 15:00] VITALS: BP 113/74
[2019-06-26 19:00] VITALS: BP 112/60
[2019-06-26] MEDS: LATANOPROST 0.005% OPHTH SOLUTION 2.5ML BOTTLE. OU SCH (21:07)
[2019-06-26] MEDS ORDERED: [UNRECOGNIZED DRUG - OTHER] IV SCH ×10 (22:00)
[2019-06-26] MEDS ORDERED: TOTAL PARENTERAL NUTRITION IV SCH ×10 (22:00)
[2019-06-26] MEDS ORDERED: AMINO ACID IV SCH ×10 (22:00)
[2019-06-26] MEDS ORDERED: DEXTROSE 70% IV SCH ×10 (22:00)
[2019-06-26 22:54] VITALS: BP 134/80
[2019-06-27 02:58] VITALS: BP 129/65
[2019-06-27] MEDS: PANTOPRAZOLE IV PUSH 40 MG VIAL. IVP SCH (06:04)
[2019-06-27 07:00] VITALS: BP 127/64
[2019-06-27 07:12] LABS: CALCIUM 7.9 mg/dL (8.5-10.1); GFR 52.7; MAGNESIUM 2.4 mg/dL (1.8-2.4); PHOSPHORUS 2.3 mg/dL (2.6-4.7); POTASSIUM 4.2 mmol/L (3.5-5.1)
[2019-06-27] MEDS: IV NORMAL SALINE 1000ML BAG 1,000 ML IV SCH (08:28)
--- NOTE | 2019-06-27 08:33 | PDOC ---
SURGICAL PROGRESS NOTE Subjective no flatus pain managed not out of bed hinojosa still in place Vital Signs Vital Signs Date Time Temp Pulse Resp B/P (MAP) Pulse Ox O2 Delivery O2 Flow Rate FiO2 06/27/19 07:15 Room Air 06/27/19 07:00 97.9 91 16 127/64 (85) 96 97.9 I&O Intake and Output 06/27/19 06:59 Intake Total 1200 ml Output Total 2950 ml Balance -1750 ml Other 1200 ml Output Urine Total 1950 ml Drainage Total 1000 ml PATIENT HAS A HINOJOSA: Yes (dc today) General: Cooperative, No acute distress HEENT: Other (NG bilious ) Abdomen: Soft, Other (dressing dry) Labs Laboratory Tests Test 06/26/19 08:00 06/27/19 06:30 White Blood Count 6.3 x10^3/uL (4.0-11.0) Red Blood Count 2.32 x10^6/uL (3.50-5.40) Hemoglobin 8.3 g/dL (12.0-15.5) Hematocrit 24.5 % (36.0-47.0) Mean Corpuscular Volume 106 fL (79-100) Mean Corpuscular Hemoglobin 36 pg (25-35) Mean Corpuscular Hemoglobin Concent 34 g/dL (31-37) Red Cell Distribution Width 22.2 % (11.5-14.5) Platelet Count 158 x10^3/uL (140-400) Neutrophils (%) (Auto) 78 % (31-73) Lymphocytes (%) (Auto) 12 % (24-48) Monocytes (%) (Auto) 9 % (0-9) Eosinophils (%) (Auto) 2 % (0-3) Basophils (%) (Auto) 0 % (0-3) Neutrophils # (Auto) 4.9 x10^3/uL (1.8-7.7) Lymphocytes # (Auto) 0.8 x10^3/uL (1.0-4.8) Monocytes # (Auto) 0.5 x10^3/uL (0.0-1.1) Eosinophils # (Auto) 0.1 x10^3/uL (0.0-0.7) Basophils # (Auto) 0.0 x10^3/uL (0.0-0.2) Sodium Level 138 mmol/L (136-145) 137 mmol/L (136-145) Potassium Level 4.3 mmol/L (3.5-5.1) 4.2 mmol/L (3.5-5.1) Chloride Level 105 mmol/L (98-107) 106 mmol/L (98-107) Carbon Dioxide Level 24 mmol/L (21-32) 23 mmol/L (21-32) Anion Gap 9 (6-14) 8 (6-14) Blood Urea Nitrogen 50 mg/dL (7-20) 34 mg/dL (7-20) Creatinine 1.1 mg/dL (0.6-1.0) 1.0 mg/dL (0.6-1.0) Estimated GFR (Cockcroft-Gault) 47.2 52.7 BUN/Creatinine Ratio 45 (6-20) Glucose Level 94 mg/dL (70-99) 115 mg/dL (70-99) Calcium Level 7.7 mg/dL (8.5-10.1) 7.9 mg/dL (8.5-10.1) Total Bilirubin 0.6 mg/dL (0.2-1.0) Aspartate Amino Transf (AST/SGOT) 25 U/L (15-37) Alanine Aminotransferase (ALT/SGPT) 19 U/L (14-59) Alkaline Phosphatase 178 U/L (46-116) Total Protein 5.3 g/dL (6.4-8.2) Albumin 1.9 g/dL (3.4-5.0) Albumin/Globulin Ratio 0.6 (1.0-1.7) Phosphorus Level 2.3 mg/dL (2.6-4.7) Magnesium Level 2.4 mg/dL (1.8-2.4) Triglycerides Level 197 mg/dL (0-150) Laboratory Tests Test 06/27/19 06:30 Sodium Level 137 mmol/L (136-145) Potassium Level 4.2 mmol/L (3.5-5.1) Chloride Level 106 mmol/L (98-107) Carbon Dioxide Level 23 mmol/L (21-32) Anion Gap 8 (6-14) Blood Urea Nitrogen 34 mg/dL (7-20) Creatinine 1.0 mg/dL (0.6-1.0) Estimated GFR (Cockcroft-Gault) 52.7 Glucose Level 115 mg/dL (70-99) Calcium Level 7.9 mg/dL (8.5-10.1) Phosphorus Level 2.3 mg/dL (2.6-4.7) Magnesium Level 2.4 mg/dL (1.8-2.4) Triglycerides Level 197 mg/dL (0-150) Problem List Problems Medical Problems: (1) RUFINO (acute kidney injury) Status: Acute (2) Dehydration Status: Acute (3) Encephalopathy Status: Acute (4) Small bowel obstruction Status: Acute Assessment/Plan s/p sbr await bowel function--ng 1100cc out needs to increase activity---out of bed, dc micaela, pt/ot consult MOLLY HURT APRN Jun 27, 2019 08:33
[2019-06-27] MEDS: busPIRone 5 MG TABLET. PO SCH ×4 (09:00→21:00)
[2019-06-27] MEDS: POTASSIUM CHLORIDE 10 MEQ TABLET.ER. PO SCH (09:00)
[2019-06-27] MEDS: DONEPEZIL HCL 10 MG TABLET. PO SCH (09:00)
--- NOTE | 2019-06-27 09:33 | PDOC ---
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 OBJECTIVE Vital Signs Vital Signs Date Time Temp Pulse Resp B/P (MAP) Pulse Ox O2 Delivery O2 Flow Rate FiO2 06/27/19 07:15 Room Air 06/27/19 07:00 97.9 91 16 127/64 (85) 96 97.9 I & 0 Intake and Output 06/27/19 06:59 Intake Total 1200 ml Output Total 2950 ml Balance -1750 ml Other 1200 ml Output Urine Total 1950 ml Drainage Total 1000 ml PHYSICAL EXAM Physical Exam General: Alert, Cooperative, No acute distress HEENT - OM moist Neck Supple Heart: Regular rate, Normal S2 Lungs: Clear Abdomen: Soft, Extremities: No edema Skin: No Rash Neuro AxOx 3 DIAGNOSIS/ASSESSMENT Assessment & Plan RUFINO-ATN- resolved May have baseline CKD- unknown, US shows Lt Renal atrophy can dc IVF , Good UOP SBO-S/P Release Surgery following UTI- On abx Primary managing Left Renal Atrophy Anemia- Hgb decreased- Primary team managing Will sign off COMMENT/RELEVANT DATA Meds Current Medications Medications (Trade) Dose Ordered Sig/Marilee Start Time Stop Time Status Last Admin Dose Admin Amino Acids/ Glycerin/ Electrolytes 1,000 ml @ 80 mls/hr [id number] 06/20/19 09:00 06/26/19 21:59 DC 06/26/19 10:41 80 MLS/HR Bupivacaine HCl/ Epinephrine Bitart (Sensorcain-Mpf Epi 0.5%-[id number]) 30 ml 1X ONCE 06/24/19 10:30 06/24/19 10:31 DC 06/24/19 12:53 8 ML Buspirone HCl (Buspar) 5 mg QID 06/20/19 09:00 Cefazolin Sodium/ Dextrose 50 ml @ 100 mls/hr 1X PREOP PRN 06/24/19 06:00 06/24/19 15:00 DC 06/24/19 11:37 100 MLS/HR Desflurane (Suprane) 60 ml STK-MED ONCE 06/24/19 11:14 06/24/19 11:15 DC Dexamethasone Sodium Phosphate (Decadron) 4 mg STK-MED ONCE 06/24/19 11:17 06/24/19 11:17 DC Diphenhydramine HCl (Benadryl) 50 mg 1X ONCE 06/22/19 07:00 06/22/19 07:01 DC 06/22/19 07:46 50 MG Donepezil HCl (Aricept) 10 mg DAILY 06/20/19 09:00 Enoxaparin Sodium (Lovenox 30mg Syringe) 30 mg Q24H 06/26/19 14:00 06/26/19 12:51 30 MG Ephedrine Sulfate (ePHEDrine PF IN SALINE SYRINGE) 50 mg STK-MED ONCE 06/24/19 11:26 06/24/19 11:26 DC Fentanyl Citrate (Fentanyl 2ml Vial) 100 mcg STK-MED ONCE 06/24/19 13:08 06/24/19 13:08 DC Glycopyrrolate (Robinul) 1 mg STK-MED ONCE 06/24/19 11:39 06/24/19 11:39 DC Hydromorphone HCl (Dilaudid) 0.5 mg PRN Q10MIN PRN 06/24/19 10:00 06/25/19 09:59 DC Info (CONTRAST GIVEN -- Rx MONITORING) 1 each PRN DAILY PRN 06/22/19 08:00 06/24/19 07:59 DC Info (Tpn Per Pharmacy) 1 each PRN DAILY PRN 06/26/19 11:15 06/26/19 13:59 1 EACH Iohexol (Omnipaque 300 Mg/ml) 400 ml 1X ONCE 06/22/19 07:45 06/22/19 07:50 DC Latanoprost (Xalatan) 1 drop QHS 06/20/19 21:00 06/26/19 21:08 1 DROP Levofloxacin (Levaquin) 250 mg DAILY06 06/22/19 06:00 06/21/19 22:23 DC Levofloxacin/ Dextrose 50 ml @ 50 mls/hr Q24H 06/22/19 06:00 06/22/19 13:57 DC 06/22/19 05:43 50 MLS/HR Levothyroxine Sodium (Synthroid) 50 mcg DAILYAC 06/20/19 09:00 06/22/19 15:39 DC Levothyroxine Sodium 25 mcg/ Sodium Chloride 5 ml @ 100 mls/hr Q72H 06/26/19 06:00 06/26/19 07:49 100 MLS/HR Lidocaine HCl (Lidocaine Pf 2% Vial) 5 ml STK-MED ONCE 06/24/19 09:27 06/24/19 09:28 DC Lorazepam (Ativan) 0.5 mg PRN Q4HRS PRN 06/20/19 08:45 Methylprednisolone Sodium Succinate (SOLU-Medrol 125MG VIAL) 125 mg 1X ONCE 06/22/19 06:00 06/22/19 06:01 DC 06/22/19 05:43 125 MG Morphine Sulfate (Morphine Sulfate) 4 mg PRN Q4HRS PRN 06/24/19 13:15 06/24/19 20:50 4 MG Naloxone HCl (Narcan) 0.4 mg PRN Q2MIN PRN 06/24/19 13:15 Neostigmine Methylsulfate (Neostigmine Methylsulfate) 5 mg STK-MED ONCE 06/24/19 11:39 06/24/19 11:39 DC Non-Formulary Medication (Melatonin ) 1 tab QHS 06/20/19 21:00 UNV Ondansetron HCl (Zofran Odt) 4 mg PRN Q6HRS PRN 06/20/19 09:00 06/22/19 05:57 4 MG Ondansetron HCl (Zofran) 4 mg STK-MED ONCE 06/24/19 11:38 06/24/19 11:38 DC Pantoprazole Sodium (PROTONIX VIAL for IV PUSH) 40 mg DAILYAC 06/22/19 07:30 06/27/19 06:04 40 MG Pantoprazole Sodium (Protonix) 40 mg DAILYAC 06/20/19 09:00 06/21/19 22:23 DC Phenylephrine HCl (PHENYLEPHRINE in 0.9% NACL PF) 1 mg STK-MED ONCE 06/24/19 11:21 06/24/19 11:21 DC Potassium Chloride/Sodium Chloride 1,000 ml @ 125 mls/hr Q8H 06/19/19 22:15 06/20/19 08:50 DC 06/20/19 07:57 125 MLS/HR Potassium Chloride (Klor-Con) 10 meq DAILY 06/20/19 09:00 Prochlorperazine Edisylate (Compazine) 10 mg STK-MED ONCE 06/24/19 12:59 06/24/19 13:00 DC Propofol 20 ml @ As Directed STK-MED ONCE 06/24/19 09:27 06/24/19 09:28 DC Ringer's Solution 1,000 ml @ 30 mls/hr Q24H 06/24/19 10:00 06/24/19 10:14 DC Rocuronium [place] (Zemuron) 50 mg STK-MED ONCE 06/24/19 09:28 06/24/19 09:28 DC Sodium Chloride (Normal Saline Flush) 3 ml QSHIFT PRN 06/24/19 13:15 Sodium Chloride 90 meq/Potassium Chloride 50 meq/ Potassium Phosphate 13.6 mmol/Magnesium Sulfate 10 meq/ Calcium Gluconate 10 meq/ Multivitamins 10 ml/Chromium/ Copper/Manganese/ Seleni/Zn 1 ml/ Total Parenteral Nutrition/Amino Acids/Dextrose/ Fat Emulsion Intravenous 1,200 ml @ 50 mls/hr TPN CONT 06/26/19 22:00 06/27/19 21:59 06/26/19 22:42 50 MLS/HR Throat Lozenges (Cepacol Sore Throat Lozenge) 1 juan PRN Q2HRS PRN 06/19/19 22:15 Throat Lozenges (Chloraseptic) 1 spray PRN Q2HR PRN 06/19/19 22:15 Lab Laboratory Tests Test 06/27/19 06:30 Sodium Level 137 mmol/L (136-145) Potassium Level 4.2 mmol/L (3.5-5.1) Chloride Level 106 mmol/L (98-107) Carbon Dioxide Level 23 mmol/L (21-32) Anion Gap 8 (6-14) Blood Urea Nitrogen 34 mg/dL (7-20) Creatinine 1.0 mg/dL (0.6-1.0) Estimated GFR (Cockcroft-Gault) 52.7 Glucose Level 115 mg/dL (70-99) Calcium Level 7.9 mg/dL (8.5-10.1) Phosphorus Level 2.3 mg/dL (2.6-4.7) Magnesium Level 2.4 mg/dL (1.8-2.4) Triglycerides Level 197 mg/dL (0-150) Results All relevant outside records, renal labs, imaging studies, telemetry/EKG's were reviewed. MEKHI SARKAR MD Jun 27, 2019 09:33
--- NOTE | 2019-06-27 10:45 | PDOC ---
PROGRESS NOTES Chief Complaint Chief Complaint impression acute abd pain small bowel obstruction, lactate elevated from this metastatic breast cancer malnutrition acute on chronic renal failure, vasomotor, cognitive decline, dementia Hx, chronic Small-bowel obstruction secondary to a fibrous adhesion. 06/24 kub Grossly unchanged appearance of the abdomen including dilated loops of central small bowel containing dilute enteric contrast. Past Medical History Cardiovascular: HTN CENTRAL NERVOUS SYSTEM: Dementia Musculoskeletal: Osteoarthritis Endocrine: Hypothyroidism Past Surgical History Past Surgical History: Colon Resection, Other (port placement) Family History Family History: No Significant Social History Smoke: No ALCOHOL: none 37 min pt exam, chart review, > 50% of time spent with exam, chart review, pt care coordination History of Present Illness History of Present Illness Dr. Mccoy, 06/24 ec-lap, , release small-bowel obstruction, small bowel resection with primary anastomosis. renal funciton better still getting a lot of fluid out of NG pain is minimal, change to TPN as no flatus, and still needs NG Vitals Vitals Vital Signs Date Time Temp Pulse Resp B/P (MAP) Pulse Ox O2 Delivery O2 Flow Rate FiO2 06/27/19 07:15 Room Air 06/27/19 07:00 97.9 91 16 127/64 (85) 96 97.9 Physical Exam General: Cooperative, No acute distress Heart: Regular rate, Normal S2 Lungs: Clear Abdomen: Soft, Other (dressing dry) Extremities: No clubbing, No cyanosis Skin: No breakdown Labs LABS Single view of the abdomen 06/24/2019 INDICATION: Small bowel obstruction COMPARISON STUDY: Persistent dilated loops of central small bowel containing relatively dilute enteric contrast. Previously seen radiopaque tablets in the right upper abdomen and pelvis are also unchanged since yesterday's study. No gross pneumoperitoneum is identified, though exam is limited for this purpose. Scoliotic and degenerative changes of the lumbosacral spine noted. IMPRESSION: Grossly unchanged appearance of the abdomen including dilated loops of central small bowel containing dilute enteric contrast. Electronically signed by: Steven Mathew MD (06/24/2019 9:11 AM) [facility] Laboratory Tests Test 06/27/19 06:30 Sodium Level 137 mmol/L (136-145) Potassium Level 4.2 mmol/L (3.5-5.1) Chloride Level 106 mmol/L (98-107) Carbon Dioxide Level 23 mmol/L (21-32) Anion Gap 8 (6-14) Blood Urea Nitrogen 34 mg/dL (7-20) Creatinine 1.0 mg/dL (0.6-1.0) Estimated GFR (Cockcroft-Gault) 52.7 Glucose Level 115 mg/dL (70-99) Calcium Level 7.9 mg/dL (8.5-10.1) Phosphorus Level 2.3 mg/dL (2.6-4.7) Magnesium Level 2.4 mg/dL (1.8-2.4) Triglycerides Level 197 mg/dL (0-150) Assessment and Plan Assessmemt and Plan Problems Medical Problems: (1) RUFINO (acute kidney injury) Status: Acute (2) Dehydration Status: Acute (3) Encephalopathy Status: Acute (4) Small bowel obstruction Status: Acute Comment Review of Relevant I have reviewed the following items lola (where applicable) has been applied. Labs Laboratory Tests Test 06/26/19 08:00 06/27/19 06:30 White Blood Count 6.3 x10^3/uL (4.0-11.0) Red Blood Count 2.32 x10^6/uL (3.50-5.40) Hemoglobin 8.3 g/dL (12.0-15.5) Hematocrit 24.5 % (36.0-47.0) Mean Corpuscular Volume 106 fL (79-100) Mean Corpuscular Hemoglobin 36 pg (25-35) Mean Corpuscular Hemoglobin Concent 34 g/dL (31-37) Red Cell Distribution Width 22.2 % (11.5-14.5) Platelet Count 158 x10^3/uL (140-400) Neutrophils (%) (Auto) 78 % (31-73) Lymphocytes (%) (Auto) 12 % (24-48) Monocytes (%) (Auto) 9 % (0-9) Eosinophils (%) (Auto) 2 % (0-3) Basophils (%) (Auto) 0 % (0-3) Neutrophils # (Auto) 4.9 x10^3/uL (1.8-7.7) Lymphocytes # (Auto) 0.8 x10^3/uL (1.0-4.8) Monocytes # (Auto) 0.5 x10^3/uL (0.0-1.1) Eosinophils # (Auto) 0.1 x10^3/uL (0.0-0.7) Basophils # (Auto) 0.0 x10^3/uL (0.0-0.2) Sodium Level 138 mmol/L (136-145) 137 mmol/L (136-145) Potassium Level 4.3 mmol/L (3.5-5.1) 4.2 mmol/L (3.5-5.1) Chloride Level 105 mmol/L (98-107) 106 mmol/L (98-107) Carbon Dioxide Level 24 mmol/L (21-32) 23 mmol/L (21-32) Anion Gap 9 (6-14) 8 (6-14) Blood Urea Nitrogen 50 mg/dL (7-20) 34 mg/dL (7-20) Creatinine 1.1 mg/dL (0.6-1.0) 1.0 mg/dL (0.6-1.0) Estimated GFR (Cockcroft-Gault) 47.2 52.7 BUN/Creatinine Ratio 45 (6-20) Glucose Level 94 mg/dL (70-99) 115 mg/dL (70-99) Calcium Level 7.7 mg/dL (8.5-10.1) 7.9 mg/dL (8.5-10.1) Total Bilirubin 0.6 mg/dL (0.2-1.0) Aspartate Amino Transf (AST/SGOT) 25 U/L (15-37) Alanine Aminotransferase (ALT/SGPT) 19 U/L (14-59) Alkaline Phosphatase 178 U/L (46-116) Total Protein 5.3 g/dL (6.4-8.2) Albumin 1.9 g/dL (3.4-5.0) Albumin/Globulin Ratio 0.6 (1.0-1.7) Phosphorus Level 2.3 mg/dL (2.6-4.7) Magnesium Level 2.4 mg/dL (1.8-2.4) Triglycerides Level 197 mg/dL (0-150) Laboratory Tests Test 06/27/19 06:30 Sodium Level 137 mmol/L (136-145) Potassium Level 4.2 mmol/L (3.5-5.1) Chloride Level 106 mmol/L (98-107) Carbon Dioxide Level 23 mmol/L (21-32) Anion Gap 8 (6-14) Blood Urea Nitrogen 34 mg/dL (7-20) Creatinine 1.0 mg/dL (0.6-1.0) Estimated GFR (Cockcroft-Gault) 52.7 Glucose Level 115 mg/dL (70-99) Calcium Level 7.9 mg/dL (8.5-10.1) Phosphorus Level 2.3 mg/dL (2.6-4.7) Magnesium Level 2.4 mg/dL (1.8-2.4) Triglycerides Level 197 mg/dL (0-150) Microbiology 06/20/19 Urine Culture - Final, Complete 06/20/19 Urine Culture Result 1 (YOBANY) - Final, Complete Medications Current Medications Potassium Chloride/Sodium Chloride 1,000 ml @ 125 mls/hr Q8H IV Last administered on 06/20/19at 07:57; Start 06/19/19 at 22:15; Stop 06/20/19 at 08:50; Status DC Throat Lozenges (Chloraseptic) 1 spray PRN Q2HR PRN PO SORE THROAT, 2ND CHOICE; Start 06/19/19 at 22:15 Throat Lozenges (Cepacol Sore Throat Lozenge) 1 juan PRN Q2HRS PRN PO SORE THROAT, 1ST CHOICE; Start 06/19/19 at 22:15 Sodium Chloride 250 ml @ 250 mls/hr 1X ONCE IV Last administered on 06/20/19at 03:24; Start 06/20/19 at 02:45; Stop 06/20/19 at 03:45; Status DC Ondansetron HCl (Zofran) 4 mg PRN Q6HRS PRN IV NAUSEA/VOMITING Last administered on 06/26/19at 21:08; Start 06/20/19 at 08:00 Buspirone HCl (Buspar) 5 mg QID PO ; Start 06/20/19 at 09:00 Donepezil HCl (Aricept) 10 mg DAILY PO ; Start 06/20/19 at 09:00 Latanoprost (Xalatan) 1 drop QHS OU Last administered on 06/26/19at 21:08; Start 06/20/19 at 21:00 Levothyroxine Sodium (Synthroid) 50 mcg DAILYAC PO ; Start 06/20/19 at 09:00; Stop 06/22/19 at 15:39; Status DC Lorazepam (Ativan) 0.5 mg PRN Q4HRS PRN PO ANXIETY / AGITATION; Start 06/20/19 at 08:45 Potassium Chloride (Klor-Con) 10 meq DAILY PO ; Start 06/20/19 at 09:00 Non-Formulary Medication (Melatonin ) 1 tab QHS PO ; Start 06/20/19 at 21:00; Status UNV Pantoprazole Sodium (Protonix) 40 mg DAILYAC PO ; Start 06/20/19 at 09:00; Stop 06/21/19 at 22:23; Status DC Ondansetron HCl (Zofran Odt) 4 mg PRN Q6HRS PRN PO NAUSEA/VOMITING Last administered on 06/22/19at 05:57; Start 06/20/19 at 09:00 Amino Acids/ Glycerin/ Electrolytes 1,000 ml @ 80 mls/hr [id number] IV Last administered on 06/26/19at 10:41; Start 06/20/19 at 09:00; Stop 06/26/19 at 21:59; Status DC Sodium Chloride 1,000 ml @ 1,000 mls/hr 1X ONCE IV Last administered on 06/20/19at 13:50; Start 06/20/19 at 13:30; Stop 06/20/19 at 14:29; Status DC Methylprednisolone Sodium Succinate (SOLU-Medrol 125MG VIAL) 125 mg 1X ONCE IV Last administered on 06/21/19at 17:15; Start 06/21/19 at 18:00; Stop 06/21/19 at 18:01; Status DC Methylprednisolone Sodium Succinate (SOLU-Medrol 125MG VIAL) 125 mg 1X ONCE IV Last administered on 06/22/19at 01:38; Start 06/22/19 at 00:00; Stop 06/22/19 at 00:01; Status DC Methylprednisolone Sodium Succinate (SOLU-Medrol 125MG VIAL) 125 mg 1X ONCE IV Last administered on 06/22/19at 05:43; Start 06/22/19 at 06:00; Stop 06/22/19 at 06:01; Status DC Diphenhydramine HCl (Benadryl) 50 mg 1X ONCE IVP Last administered on 06/22/19at 07:46; Start 06/22/19 at 07:00; Stop 06/22/19 at 07:01; Status DC Sodium Chloride 500 ml @ 500 mls/hr 1X ONCE IV Last administered on 06/21/19at 15:38; Start 06/21/19 at 15:30; Stop 06/21/19 at 16:29; Status DC Levofloxacin (Levaquin) 250 mg DAILY06 PO ; Start 06/22/19 at 06:00; Stop 06/21/19 at 22:23; Status DC Levofloxacin/ Dextrose 50 ml @ 50 mls/hr Q24H IV ; Start 06/21/19 at 22:30; Stop 06/21/19 at 22:34; Status DC Pantoprazole Sodium (PROTONIX VIAL for IV PUSH) 40 mg DAILYAC IVP Last administered on 06/27/19at 06:04; Start 06/22/19 at 07:30 Levofloxacin/ Dextrose 50 ml @ 50 mls/hr Q24H IV Last administered on 06/22/19at 05:43; Start 06/22/19 at 06:00; Stop 06/22/19 at 13:57; Status DC Iohexol (Omnipaque 300 Mg/ml) 400 ml 1X ONCE PO ; Start 06/22/19 at 07:45; Stop 06/22/19 at 07:50; Status DC Info (CONTRAST GIVEN -- Rx MONITORING) 1 each PRN DAILY PRN MC SEE COMMENTS; Start 06/22/19 at 08:00; Stop 06/24/19 at 07:59; Status DC Sodium Chloride 1,000 ml @ 100 mls/hr 1X ONCE IV Last administered on at 11:40; Start 06/22/19 at 11:15; Stop 06/22/19 at 21:14; Status DC Levothyroxine Sodium 25 mcg/ Sodium Chloride 5 ml @ 100 mls/hr Q72H IVP Last administered on 06/26/19at 07:49; Start 06/26/19 at 06:00 Sodium Chloride 1,000 ml @ 100 mls/hr 1X ONCE IV Last administered on 06/23/19at 11:59; Start 06/23/19 at 11:45; Stop 06/23/19 at 21:44; Status DC Propofol 20 ml @ As Directed STK-MED ONCE IV ; Start 06/24/19 at 09:27; Stop 06/24/19 at 09:28; Status DC Lidocaine HCl (Lidocaine Pf 2% Vial) 5 ml STK-MED ONCE .ROUTE ; Start 06/24/19 at 09:27; Stop 06/24/19 at 09:28; Status DC Rocuronium [place] (Zemuron) 50 mg STK-MED ONCE .ROUTE ; Start 06/24/19 at 09:28; Stop 06/24/19 at 09:28; Status DC Fentanyl Citrate (Fentanyl 2ml Vial) 100 mcg STK-MED ONCE .ROUTE ; Start 06/24/19 at 09:28; Stop 06/24/19 at 09:28; Status DC Cefazolin Sodium/ Dextrose 50 ml @ 100 mls/hr 1X PREOP PRN IV protocol Last administered on 06/24/19at 11:37; Start 06/24/19 at 06:00; Stop 06/24/19 at 15:00; Status DC Fentanyl Citrate (Fentanyl 2ml Vial) 25 mcg PRN Q5MIN PRN IV MILD PAIN 1-3 Last administered on 06/24/19at 13:48; Start 06/24/19 at 10:00; Stop 06/25/19 at 09:59; Status DC Fentanyl Citrate (Fentanyl 2ml Vial) 50 mcg PRN Q5MIN PRN IV MODERATE TO SEVERE PAIN Last administered on 06/24/19at 14:08; Start 06/24/19 at 10:00; Stop 06/25/19 at 09:59; Status DC Morphine Sulfate (Morphine Sulfate) 1 mg PRN Q10MIN PRN IV SEVERE PAIN 7-10; Start 06/24/19 at 10:00; Stop 06/25/19 at 09:59; Status DC Ringer's Solution 1,000 ml @ 30 mls/hr Q24H IV ; Start 06/24/19 at 10:00; Stop 06/24/19 at 10:14; Status DC Hydromorphone HCl (Dilaudid) 0.5 mg PRN Q10MIN PRN IV SEV PAIN, Second choice; Start 06/24/19 at 10:00; Stop 06/25/19 at 09:59; Status DC Prochlorperazine Edisylate (Compazine) 5 mg PACU PRN PRN IV NAUSEA, MRX1 Last administered on 06/24/19at 13:27; Start 06/24/19 at 10:00; Stop 06/25/19 at 09:59; Status DC Sodium Chloride 1,000 ml @ 40 mls/hr Q24H IV Last administered on 06/24/19at 14:16; Start 06/24/19 at 10:15 Bupivacaine HCl/ Epinephrine Bitart (Sensorcain-Mpf Epi 0.5%-1:[id number]) 30 ml 1X ONCE INJ Last administered on 06/24/19at 12:53; Start 06/24/19 at 10:30; Stop 06/24/19 at 10:31; Status DC Desflurane (Suprane) 60 ml STK-MED ONCE IH ; Start 06/24/19 at 11:14; Stop 06/24/19 at 11:15; Status DC Ondansetron HCl (Zofran) 4 mg STK-MED ONCE .ROUTE ; Start 06/24/19 at 11:16; Stop 06/24/19 at 11:16; Status DC Dexamethasone Sodium Phosphate (Decadron) 4 mg STK-MED ONCE .ROUTE ; Start 06/24/19 at 11:17; Stop 06/24/19 at 11:17; Status DC Phenylephrine HCl (PHENYLEPHRINE in 0.9% NACL PF) 1 mg STK-MED ONCE IV ; Start 06/24/19 at 11:21; Stop 06/24/19 at 11:21; Status DC Sodium Chloride 1,000 ml @ 100 mls/hr 1X ONCE IV ; Start 06/24/19 at 11:30; Stop 06/24/19 at 21:29; Status DC Ephedrine Sulfate (ePHEDrine PF IN SALINE SYRINGE) 50 mg STK-MED ONCE IV ; Start 06/24/19 at 11:26; Stop 06/24/19 at 11:26; Status DC Ondansetron HCl (Zofran) 4 mg STK-MED ONCE .ROUTE ; Start 06/24/19 at 11:38; Stop 06/24/19 at 11:38; Status DC Neostigmine Methylsulfate (Neostigmine Methylsulfate) 5 mg STK-MED ONCE .ROUTE ; Start 06/24/19 at 11:39; Stop 06/24/19 at 11:39; Status DC Glycopyrrolate (Robinul) 1 mg STK-MED ONCE .ROUTE ; Start 06/24/19 at 11:39; Stop 06/24/19 at 11:39; Status DC Prochlorperazine Edisylate (Compazine) 10 mg STK-MED ONCE .ROUTE ; Start 06/24/19 at 12:59; Stop 06/24/19 at 13:00; Status DC Fentanyl Citrate (Fentanyl 2ml Vial) 100 mcg STK-MED ONCE .ROUTE ; Start 06/24/19 at 13:08; Stop 06/24/19 at 13:08; Status DC Sodium Chloride (Normal Saline Flush) 3 ml QSHIFT PRN IV AFTER MEDS AND BLOOD DRAWS; Start 06/24/19 at 13:15 Naloxone HCl (Narcan) 0.4 mg PRN Q2MIN PRN IV SEE INSTRUCTIONS; Start 06/24/19 at 13:15 Sodium Chloride 1,000 ml @ 25 mls/hr Q24H IV ; Start 06/24/19 at 13:14; Stop 06/25/19 at 11:05; Status DC Morphine Sulfate (Morphine Sulfate) 4 mg PRN Q4HRS PRN IV MODERATE TO SEVERE PAIN Last administered on 06/24/19at 20:50; Start 06/24/19 at 13:15 Sodium Chloride 1,000 ml @ 100 mls/hr 1X ONCE IV Last administered on 9at 11:04; Start 06/25/19 at 10:30; Stop 06/25/19 at 20:29; Status DC Info (Tpn Per Pharmacy) 1 each PRN DAILY PRN MC SEE COMMENTS Last administered on 06/26/19at 13:59; Start 06/26/19 at 11:15 Sodium Chloride 1,000 ml @ 100 mls/hr 1X ONCE IV Last administered on 06/26/19at 12:51; Start 06/26/19 at 11:15; Stop 06/26/19 at 21:14; Status DC Enoxaparin Sodium (Lovenox 30mg Syringe) 30 mg Q24H SQ Last administered on 06/26/19at 12:51; Start 06/26/19 at 14:00 Sodium Chloride 90 meq/Potassium Chloride 50 meq/ Potassium Phosphate 13.6 mmol/Magnesium Sulfate 10 meq/ Calcium Gluconate 10 meq/ Multivitamins 10 ml/Chromium/ Copper/Manganese/ Seleni/Zn 1 ml/ Total Parenteral Nutrition/Amino Acids/Dextrose/ Fat Emulsion Intravenous 1,200 ml @ 50 mls/hr TPN CONT IV Last administered on 06/26/19at 22:42; Start 06/26/19 at 22:00; Stop 06/27/19 at 21:59 Active Scripts Active Reported Aspirin 81 Mg Tab.chew 1 Tab PO DAILY Ultram (Tramadol Hcl) 50 Mg Tablet 50 Mg PO Q4HRS PRN Potassium Chloride 10 Meq Tab.sr.24h 10 Meq PO DAILY Namenda (Memantine Hcl) 10 Mg Tablet 10 Mg PO BID Zofran (Ondansetron Hcl) 4 Mg Tablet 1 Tab PO PRN Q6-8HRS Imodium A-D (Loperamide Hcl) 1 Mg/7.5 Ml Liquid 1 Mg PO PRN PRN Omeprazole 20 Mg Tablet.dr 1 Tab PO DAILY Acetaminophen 325 Mg Tablet 325 Mg PO Q4HRS Donepezil Hcl 10 Mg Tablet 1 Tab PO DAILY Xeloda (Capecitabine) 500 Mg Tablet 2,000 Mg PO Q12HR Buspirone Hcl 5 Mg Tablet 1 Tab PO QID Melatonin 3 Mg Tablet 1 Tab PO QHS Levothyroxine Sodium 50 Mcg Tablet 50 Mcg PO DAILYAC Cerefolin Nac Caplet (Lmfol Ca/Acetyl/Mb12/Algal Oil) 1 Each Tablet 1 Each PO DAILY Xalatan (Latanoprost) 2.5 Ml Drops 1 Drop EACHEYE QHS Magnesium Oxide 400 Mg Tablet 1 Tab PO TID Pepcid (Famotidine) 20 Mg Tablet 20 Mg PO DAILY Ativan (Lorazepam) 0.5 Mg Tablet 0.5 Mg PO Q4HRS PRN Vitals/I & O Vital Sign - Last 24 Hours 06/26/19 06/26/19 06/26/19 06/26/19 11:00 15:00 19:00 20:00 Temp 97.6 97.7 98.5 97.6 97.7 98.5 Pulse 92 90 86 Resp 16 16 18 B/P (MAP) 118/64 (82) 113/74 (87) 112/60 (77) Pulse Ox 98 97 98 O2 Delivery Room Air Room Air Room Air Room Air 06/26/19 06/27/19 06/27/19 06/27/19 22:54 02:58 07:00 07:15 Temp 97.7 97.8 97.9 97.7 97.8 97.9 Pulse 71 89 91 Resp 18 18 16 B/P (MAP) 134/80 (98) 129/65 (86) 127/64 (85) Pulse Ox 97 98 96 O2 Delivery Room Air Room Air Room Air Room Air Intake and Output 06/26/19 06/26/19 06/27/19 14:59 22:59 06:59 Intake Total 1200 ml Output Total 700 ml 1450 ml 800 ml Balance -700 ml -250 ml -800 ml Nutrition Consultation Dietary Evaluation: Recommendations by RD: PPN/TPN Comments: continue with PPN until able to advance diet Expected Outcomes/Goals: to meet > 75% est nutr needs via po intake- not met, goal ongoing Malnutrition Findings: Muscle Mass (Severe): Severe Depletion Food and Nutrition Intake (Sev: <50% est energy req 5days Body Fat Depletion (Non Severe: Mod to Severe Weight Status: Underweight MEHDI WARD MD Jun 27, 2019 10:45
[2019-06-27 11:00] VITALS: BP 117/56
[2019-06-27] MEDS: TPN PER PHARMACY MC PRN ×2 (12:51→14:45)
--- NOTE | 2019-06-27 12:51 | NUR ---
Pharmacy TPN Dosing Note S: ROSA SCHREIBER is a 84 year old F Currently receiving Central Continuous TPN started 06/26/19 B:Pertinent PMH: SBO S/P RESECTION 06/24 Height: 5 feet, 6 inches Weight: 48.1 kg Current diet: NPO LABS: Sodium: 137 Potassium: 4.2 Chloride: 106 Calcium: 7.9 Corrected Calcium: 9.58 Magnesium: 2.4 CO2: 23 SCr: 1.0 Glucose: 115 Albumin: 1.9 AST: 25 ALT: 19 TPN FORMULA: TPN TYPE: Central Continuous AMINO ACIDS: 65 gm DEXTROSE: 195 gm LIPIDS: 20 gm SODIUM CHLORIDE: 90 mEq POTASSIUM CHLORIDE: 50 mEq POTASSIUM PHOSPHATE: 17 mmol MAGNESIUM: 10 mEq CALCIUM: 10 mEq MULTIPLE VITAMIN: 10 ml TRACE ELEMENTS: MTE 5 1ML TPN PLAN: -Serum phos trending down, give KPhos bolus outside of TPN. Increase KPhos in TPN to 17 mmol/day. -Continue same TPN rate/fluid amount as patient's BUN/SCr ratio is improving. -Serum triglycerides 197 - okay to continue same lipid component. -BMP, mag, phos tomorrow per protocol. R: Continue TPN @ current rate and above formula. Will monitor electrolytes, glucose, and tolerance to TPN. DUKE DIAZ [facility], 06/27/19 [id number]
[2019-06-27] MEDS ORDERED: POTASSIUM PHOSPHATE DIBASIC 13.6 MMOL in IV DEXTROSE 5% 100ML 100 ML IV ONE (13:00)
--- NOTE | 2019-06-27 13:47 | NUR ---
SS following up with discharge planning. Pt is from [facility], ; fax [phone], and is a LTC resident from there facility. Pt is able to return when medically stable for discharge. SS will continue to follow for discharge planning.
[2019-06-27] MEDS: ENOXAPARIN 30 MG/0.3 ML SYRINGE. SQ SCH (14:22)
[2019-06-27 15:00] VITALS: BP 116/61
--- NOTE | 2019-06-27 16:06 | PATHOLOGY ---
[facility] Accession Number: [id number] . 01 Material submitted: . small bowel - STENOTIC SMALL BOWEL . 01 Clinical history: . SBO. . 02 Diagnosis: Segment of small bowel, small bowel segmental resection: - Central segmental hemorrhagic infarction with stricture. - Proximal and distal margins of resection viable. (JPM/db; 06/27/2019) LBQ/06/27/2019 . 02 Electronically signed: . Douglas Wu MD, Pathologist NPI- [id number] . 01 Gross description: . Received in formalin labeled "Shanice Schumacherine, stenotic small bowel-suture at proximal end" is an oriented segment of small bowel measuring 7.2 cm in length and ranging from 2.6-3.4 cm in diameter. The mucosal margins are closed with staple lines. A suture is present at one aspect, indicating the proximal margin. The midportion of the specimen displays a strictured area measuring 0.5 cm in length and 1.4 cm in diameter. The area proximal to the stricture is dilated and the area distal to the stricture is unremarkable in diameter. The serosa is pink-potts and smooth. The specimen is opened to reveal potts-brown mucosa without masses or lesions. No perforations are grossly identified. Speech Therapy Director sections are submitted as follows: A1 proximal margin A2 distal margin A3-A4 cross sections of strictured area ([facility]; 06/26/2019) SYC/SYC . 02 Pathologist provided ICD-10: K56.609 . 02 CPT . 066468 Specimen Comment: A courtesy copy of this report has been sent to Specimen Comment: [phone], , . Specimen Comment: Report sent to ,DR WARD / DR JUAREZ Performed at: 01 [facility] [address], [place], [place] [id number] MD Edilson Osorio MD Phone: [phone] Performed at: 02 [facility] [address], [place] [id number] MD Douglas Wu MD Phone: [phone]
[2019-06-27 19:00] VITALS: BP 126/56
[2019-06-27] MEDS: LATANOPROST 0.005% OPHTH SOLUTION 2.5ML BOTTLE. OU SCH (20:59)
[2019-06-27] MEDS ORDERED: TOTAL PARENTERAL NUTRITION IV SCH ×10 (22:00)
[2019-06-27] MEDS ORDERED: DEXTROSE 70% IV SCH ×10 (22:00)
[2019-06-27] MEDS ORDERED: AMINO ACID IV SCH ×10 (22:00)
[2019-06-27] MEDS ORDERED: [UNRECOGNIZED DRUG - OTHER] IV SCH ×10 (22:00)
[2019-06-27 23:00] VITALS: BP 139/70
[2019-06-28 03:00] VITALS: BP 148/71
[2019-06-28 06:29] LABS: BASO % 0 % (0-3); EOS # 0.3 x10^3/uL (0.0-0.7); EOS % 3 % (0-3); HEMATOCRIT 24.8 % (36.0-47.0); HEMOGLOBIN 8.6 g/dL (12.0-15.5); LYMPH # 0.9 x10^3/uL (1.0-4.8); LYMPH % 11 % (24-48); MEAN CORPUSCULAR HEMOGLOBIN 37 pg (25-35); MEAN CORPUSCULAR HGB CONC 35 g/dL (31-37); MEAN CORPUSCULAR VOLUME 106 fL (79-100); MONO # 0.5 x10^3/uL (0.0-1.1); MONO % 6 % (0-9); NEUT # 6.5 x10^3/uL (1.8-7.7); NEUT % 79 % (31-73); PLATELET COUNT 174 x10^3/uL (140-400); RED BLOOD COUNT 2.34 x10^6/uL (3.50-5.40); RED CELL DISTRIBUTION WIDTH 21.8 % (11.5-14.5); WHITE BLOOD COUNT 8.2 x10^3/uL (4.0-11.0)
[2019-06-28 06:41] LABS: CALCIUM 7.9 mg/dL (8.5-10.1); CREATININE 0.8 mg/dL (0.6-1.0); GFR 68.2; PHOSPHORUS 2.5 mg/dL (2.6-4.7); POTASSIUM 4.2 mmol/L (3.5-5.1)
[2019-06-28 07:00] VITALS: BP 125/72
[2019-06-28] MEDS: PANTOPRAZOLE IV PUSH 40 MG VIAL. IVP SCH (08:02)
[2019-06-28] MEDS: DONEPEZIL HCL 10 MG TABLET. PO SCH (09:00)
[2019-06-28] MEDS: busPIRone 5 MG TABLET. PO SCH ×4 (09:00→21:00)
[2019-06-28] MEDS: POTASSIUM CHLORIDE 10 MEQ TABLET.ER. PO SCH (09:00)
--- NOTE | 2019-06-28 09:04 | PDOC ---
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 06/28/19 0904: SURGICAL PROGRESS NOTE Subjective + stools some flatus Vital Signs Vital Signs Date Time Temp Pulse Resp B/P (MAP) Pulse Ox O2 Delivery O2 Flow Rate FiO2 06/28/19 07:00 98.0 84 18 125/72 (89) 96 Room Air 98.0 I&O Intake and Output 06/28/19 07:00 Intake Total 1200 ml Output Total 950 ml Balance 250 ml Intake Oral 0 ml IV Total 600 ml Other 600 ml Output Urine Total 600 ml Gastric Drainage Total 350 ml # Bowel Movements 3 General: Cooperative, No acute distress HEENT: Other (ng present) Abdomen: Soft, Other (incision c/d/i, no erythema, ND) Labs Laboratory Tests Test 06/27/19 06:30 06/28/19 06:00 Sodium Level 137 mmol/L (136-145) 139 mmol/L (136-145) Potassium Level 4.2 mmol/L (3.5-5.1) 4.2 mmol/L (3.5-5.1) Chloride Level 106 mmol/L (98-107) 109 mmol/L (98-107) Carbon Dioxide Level 23 mmol/L (21-32) 20 mmol/L (21-32) Anion Gap 8 (6-14) 10 (6-14) Blood Urea Nitrogen 34 mg/dL (7-20) 28 mg/dL (7-20) Creatinine 1.0 mg/dL (0.6-1.0) 0.8 mg/dL (0.6-1.0) Estimated GFR (Cockcroft-Gault) 52.7 68.2 Glucose Level 115 mg/dL (70-99) 122 mg/dL (70-99) Calcium Level 7.9 mg/dL (8.5-10.1) 7.9 mg/dL (8.5-10.1) Phosphorus Level 2.3 mg/dL (2.6-4.7) 2.5 mg/dL (2.6-4.7) Magnesium Level 2.4 mg/dL (1.8-2.4) 2.0 mg/dL (1.8-2.4) Triglycerides Level 197 mg/dL (0-150) White Blood Count 8.2 x10^3/uL (4.0-11.0) Red Blood Count 2.34 x10^6/uL (3.50-5.40) Hemoglobin 8.6 g/dL (12.0-15.5) Hematocrit 24.8 % (36.0-47.0) Mean Corpuscular Volume 106 fL (79-100) Mean Corpuscular Hemoglobin 37 pg (25-35) Mean Corpuscular Hemoglobin Concent 35 g/dL (31-37) Red Cell Distribution Width 21.8 % (11.5-14.5) Platelet Count 174 x10^3/uL (140-400) Neutrophils (%) (Auto) 79 % (31-73) Lymphocytes (%) (Auto) 11 % (24-48) Monocytes (%) (Auto) 6 % (0-9) Eosinophils (%) (Auto) 3 % (0-3) Basophils (%) (Auto) 0 % (0-3) Neutrophils # (Auto) 6.5 x10^3/uL (1.8-7.7) Lymphocytes # (Auto) 0.9 x10^3/uL (1.0-4.8) Monocytes # (Auto) 0.5 x10^3/uL (0.0-1.1) Eosinophils # (Auto) 0.3 x10^3/uL (0.0-0.7) Basophils # (Auto) 0.0 x10^3/uL (0.0-0.2) Laboratory Tests Test 06/28/19 06:00 White Blood Count 8.2 x10^3/uL (4.0-11.0) Red Blood Count 2.34 x10^6/uL (3.50-5.40) Hemoglobin 8.6 g/dL (12.0-15.5) Hematocrit 24.8 % (36.0-47.0) Mean Corpuscular Volume 106 fL (79-100) Mean Corpuscular Hemoglobin 37 pg (25-35) Mean Corpuscular Hemoglobin Concent 35 g/dL (31-37) Red Cell Distribution Width 21.8 % (11.5-14.5) Platelet Count 174 x10^3/uL (140-400) Neutrophils (%) (Auto) 79 % (31-73) Lymphocytes (%) (Auto) 11 % (24-48) Monocytes (%) (Auto) 6 % (0-9) Eosinophils (%) (Auto) 3 % (0-3) Basophils (%) (Auto) 0 % (0-3) Neutrophils # (Auto) 6.5 x10^3/uL (1.8-7.7) Lymphocytes # (Auto) 0.9 x10^3/uL (1.0-4.8) Monocytes # (Auto) 0.5 x10^3/uL (0.0-1.1) Eosinophils # (Auto) 0.3 x10^3/uL (0.0-0.7) Basophils # (Auto) 0.0 x10^3/uL (0.0-0.2) Sodium Level 139 mmol/L (136-145) Potassium Level 4.2 mmol/L (3.5-5.1) Chloride Level 109 mmol/L (98-107) Carbon Dioxide Level 20 mmol/L (21-32) Anion Gap 10 (6-14) Blood Urea Nitrogen 28 mg/dL (7-20) Creatinine 0.8 mg/dL (0.6-1.0) Estimated GFR (Cockcroft-Gault) 68.2 Glucose Level 122 mg/dL (70-99) Calcium Level 7.9 mg/dL (8.5-10.1) Phosphorus Level 2.5 mg/dL (2.6-4.7) Magnesium Level 2.0 mg/dL (1.8-2.4) Problem List Problems Medical Problems: (1) RUFINO (acute kidney injury) Status: Acute (2) Dehydration Status: Acute (3) Encephalopathy Status: Acute (4) Small bowel obstruction Status: Acute Assessment/Plan clamp NG increase activity HUSSEIN WEINER MD 06/28/19 1038: SURGICAL PROGRESS NOTE Assessment/Plan pt seen up to bedside chair agree with above Uziel Wild and Norah and Molly Mcelroy to follow pt in my absence 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 Jun 28, 2019 09:04 HUSSEIN WEINER MD Jun 28, 2019 10:38
--- NOTE | 2019-06-28 10:47 | PDOC ---
PROGRESS NOTES Chief Complaint Chief Complaint impression acute abd pain small bowel obstruction, lactate elevated from this metastatic breast cancer malnutrition acute on chronic renal failure, vasomotor, cognitive decline, dementia Hx, chronic Small-bowel obstruction secondary to a fibrous adhesion. 06/24 kub Grossly unchanged appearance of the abdomen including dilated loops of central small bowel containing dilute enteric contrast. clamp NG increase activity Past Medical History Cardiovascular: HTN CENTRAL NERVOUS SYSTEM: Dementia Musculoskeletal: Osteoarthritis Endocrine: Hypothyroidism Past Surgical History Past Surgical History: Colon Resection, Other (port placement) Family History Family History: No Significant Social History Smoke: No ALCOHOL: none 38 min pt exam, chart review, > 50% of time spent with exam, chart review, pt care coordination History of Present Illness History of Present Illness Dr. Mccoy, 06/24 ec-lap, , release small-bowel obstruction, small bowel resection with primary anastomosis. renal funciton better still getting a lot of fluid out of NG pain is minimal, change to TPN as no flatus, and still needs NG Vitals Vitals Vital Signs Date Time Temp Pulse Resp B/P (MAP) Pulse Ox O2 Delivery O2 Flow Rate FiO2 06/28/19 07:00 98.0 84 18 125/72 (89) 96 Room Air 98.0 Physical Exam General: Alert, Oriented X3, Cooperative, No acute distress, mild distress Heart: Regular rate, Normal S1, Normal S2 Lungs: Clear Abdomen: Soft, Other (incision c/d/i, no erythema, ND) Extremities: No clubbing, No cyanosis Skin: No breakdown Labs LABS Laboratory Tests Test 06/28/19 06:00 White Blood Count 8.2 x10^3/uL (4.0-11.0) Red Blood Count 2.34 x10^6/uL (3.50-5.40) Hemoglobin 8.6 g/dL (12.0-15.5) Hematocrit 24.8 % (36.0-47.0) Mean Corpuscular Volume 106 fL (79-100) Mean Corpuscular Hemoglobin 37 pg (25-35) Mean Corpuscular Hemoglobin Concent 35 g/dL (31-37) Red Cell Distribution Width 21.8 % (11.5-14.5) Platelet Count 174 x10^3/uL (140-400) Neutrophils (%) (Auto) 79 % (31-73) Lymphocytes (%) (Auto) 11 % (24-48) Monocytes (%) (Auto) 6 % (0-9) Eosinophils (%) (Auto) 3 % (0-3) Basophils (%) (Auto) 0 % (0-3) Neutrophils # (Auto) 6.5 x10^3/uL (1.8-7.7) Lymphocytes # (Auto) 0.9 x10^3/uL (1.0-4.8) Monocytes # (Auto) 0.5 x10^3/uL (0.0-1.1) Eosinophils # (Auto) 0.3 x10^3/uL (0.0-0.7) Basophils # (Auto) 0.0 x10^3/uL (0.0-0.2) Sodium Level 139 mmol/L (136-145) Potassium Level 4.2 mmol/L (3.5-5.1) Chloride Level 109 mmol/L (98-107) Carbon Dioxide Level 20 mmol/L (21-32) Anion Gap 10 (6-14) Blood Urea Nitrogen 28 mg/dL (7-20) Creatinine 0.8 mg/dL (0.6-1.0) Estimated GFR (Cockcroft-Gault) 68.2 Glucose Level 122 mg/dL (70-99) Calcium Level 7.9 mg/dL (8.5-10.1) Phosphorus Level 2.5 mg/dL (2.6-4.7) Magnesium Level 2.0 mg/dL (1.8-2.4) Assessment and Plan Assessmemt and Plan Problems Medical Problems: (1) RUFINO (acute kidney injury) Status: Acute (2) Dehydration Status: Acute (3) Encephalopathy Status: Acute (4) Small bowel obstruction Status: Acute Comment Review of Relevant I have reviewed the following items lola (where applicable) has been applied. Labs Laboratory Tests Test 06/27/19 06:30 06/28/19 06:00 Sodium Level 137 mmol/L (136-145) 139 mmol/L (136-145) Potassium Level 4.2 mmol/L (3.5-5.1) 4.2 mmol/L (3.5-5.1) Chloride Level 106 mmol/L (98-107) 109 mmol/L (98-107) Carbon Dioxide Level 23 mmol/L (21-32) 20 mmol/L (21-32) Anion Gap 8 (6-14) 10 (6-14) Blood Urea Nitrogen 34 mg/dL (7-20) 28 mg/dL (7-20) Creatinine 1.0 mg/dL (0.6-1.0) 0.8 mg/dL (0.6-1.0) Estimated GFR (Cockcroft-Gault) 52.7 68.2 Glucose Level 115 mg/dL (70-99) 122 mg/dL (70-99) Calcium Level 7.9 mg/dL (8.5-10.1) 7.9 mg/dL (8.5-10.1) Phosphorus Level 2.3 mg/dL (2.6-4.7) 2.5 mg/dL (2.6-4.7) Magnesium Level 2.4 mg/dL (1.8-2.4) 2.0 mg/dL (1.8-2.4) Triglycerides Level 197 mg/dL (0-150) White Blood Count 8.2 x10^3/uL (4.0-11.0) Red Blood Count 2.34 x10^6/uL (3.50-5.40) Hemoglobin 8.6 g/dL (12.0-15.5) Hematocrit 24.8 % (36.0-47.0) Mean Corpuscular Volume 106 fL (79-100) Mean Corpuscular Hemoglobin 37 pg (25-35) Mean Corpuscular Hemoglobin Concent 35 g/dL (31-37) Red Cell Distribution Width 21.8 % (11.5-14.5) Platelet Count 174 x10^3/uL (140-400) Neutrophils (%) (Auto) 79 % (31-73) Lymphocytes (%) (Auto) 11 % (24-48) Monocytes (%) (Auto) 6 % (0-9) Eosinophils (%) (Auto) 3 % (0-3) Basophils (%) (Auto) 0 % (0-3) Neutrophils # (Auto) 6.5 x10^3/uL (1.8-7.7) Lymphocytes # (Auto) 0.9 x10^3/uL (1.0-4.8) Monocytes # (Auto) 0.5 x10^3/uL (0.0-1.1) Eosinophils # (Auto) 0.3 x10^3/uL (0.0-0.7) Basophils # (Auto) 0.0 x10^3/uL (0.0-0.2) Laboratory Tests Test 06/28/19 06:00 White Blood Count 8.2 x10^3/uL (4.0-11.0) Red Blood Count 2.34 x10^6/uL (3.50-5.40) Hemoglobin 8.6 g/dL (12.0-15.5) Hematocrit 24.8 % (36.0-47.0) Mean Corpuscular Volume 106 fL (79-100) Mean Corpuscular Hemoglobin 37 pg (25-35) Mean Corpuscular Hemoglobin Concent 35 g/dL (31-37) Red Cell Distribution Width 21.8 % (11.5-14.5) Platelet Count 174 x10^3/uL (140-400) Neutrophils (%) (Auto) 79 % (31-73) Lymphocytes (%) (Auto) 11 % (24-48) Monocytes (%) (Auto) 6 % (0-9) Eosinophils (%) (Auto) 3 % (0-3) Basophils (%) (Auto) 0 % (0-3) Neutrophils # (Auto) 6.5 x10^3/uL (1.8-7.7) Lymphocytes # (Auto) 0.9 x10^3/uL (1.0-4.8) Monocytes # (Auto) 0.5 x10^3/uL (0.0-1.1) Eosinophils # (Auto) 0.3 x10^3/uL (0.0-0.7) Basophils # (Auto) 0.0 x10^3/uL (0.0-0.2) Sodium Level 139 mmol/L (136-145) Potassium Level 4.2 mmol/L (3.5-5.1) Chloride Level 109 mmol/L (98-107) Carbon Dioxide Level 20 mmol/L (21-32) Anion Gap 10 (6-14) Blood Urea Nitrogen 28 mg/dL (7-20) Creatinine 0.8 mg/dL (0.6-1.0) Estimated GFR (Cockcroft-Gault) 68.2 Glucose Level 122 mg/dL (70-99) Calcium Level 7.9 mg/dL (8.5-10.1) Phosphorus Level 2.5 mg/dL (2.6-4.7) Magnesium Level 2.0 mg/dL (1.8-2.4) Microbiology 06/20/19 Urine Culture - Final, Complete 06/20/19 Urine Culture Result 1 (YOBANY) - Final, Complete Medications Current Medications Potassium Chloride/Sodium Chloride 1,000 ml @ 125 mls/hr Q8H IV Last administered on 06/20/19at 07:57; Start 06/19/19 at 22:15; Stop 06/20/19 at 08:50; Status DC Throat Lozenges (Chloraseptic) 1 spray PRN Q2HR PRN PO SORE THROAT, 2ND CHOICE; Start 06/19/19 at 22:15 Throat Lozenges (Cepacol Sore Throat Lozenge) 1 juan PRN Q2HRS PRN PO SORE THROAT, 1ST CHOICE; Start 06/19/19 at 22:15 Sodium Chloride 250 ml @ 250 mls/hr 1X ONCE IV Last administered on 06/20/19at 03:24; Start 06/20/19 at 02:45; Stop 06/20/19 at 03:45; Status DC Ondansetron HCl (Zofran) 4 mg PRN Q6HRS PRN IV NAUSEA/VOMITING Last administered on 06/26/19at 21:08; Start 06/20/19 at 08:00 Buspirone HCl (Buspar) 5 mg QID PO ; Start 06/20/19 at 09:00 Donepezil HCl (Aricept) 10 mg DAILY PO ; Start 06/20/19 at 09:00 Latanoprost (Xalatan) 1 drop QHS OU Last administered on 06/27/19at 21:00; Start 06/20/19 at 21:00 Levothyroxine Sodium (Synthroid) 50 mcg DAILYAC PO ; Start 06/20/19 at 09:00; Stop 06/22/19 at 15:39; Status DC Lorazepam (Ativan) 0.5 mg PRN Q4HRS PRN PO ANXIETY / AGITATION; Start 06/20/19 at 08:45 Potassium Chloride (Klor-Con) 10 meq DAILY PO ; Start 06/20/19 at 09:00 Non-Formulary Medication (Melatonin ) 1 tab QHS PO ; Start 06/20/19 at 21:00; Status UNV Pantoprazole Sodium (Protonix) 40 mg DAILYAC PO ; Start 06/20/19 at 09:00; Stop 06/21/19 at 22:23; Status DC Ondansetron HCl (Zofran Odt) 4 mg PRN Q6HRS PRN PO NAUSEA/VOMITING Last adminis tered on 06/22/19at 05:57; Start 06/20/19 at 09:00 Amino Acids/ Glycerin/ Electrolytes 1,000 ml @ 80 mls/hr [id number] IV Last adm inistered on 06/26/19at 10:41; Start 06/20/19 at 09:00; Stop 06/26/19 at 21:59; Status DC Sodium Chloride 1,000 ml @ 1,000 mls/hr 1X ONCE IV Last administered on 06/20/19at 13:50; Start 06/20/19 at 13:30; Stop 06/20/19 at 14:29; Status DC Methylprednisolone Sodium Succinate (SOLU-Medrol 125MG VIAL) 125 mg 1X ONCE IV Last administered on 06/21/19 17:15; Start 06/21/19 at 18:00; Stop 06/21/19 at 18:01; Status DC Methylprednisolone Sodium Succinate (SOLU-Medrol 125MG VIAL) 125 mg 1X ONCE IV Last administered on 06/22/19at 01:38; Start 06/22/19 at 00:00; Stop 06/22/19 at 00:01; Status DC Methylprednisolone Sodium Succinate (SOLU-Medrol 125MG VIAL) 125 mg 1X ONCE IV Last administered on 06/22/19at 05:43; Start 06/22/19 at 06:00; Stop 06/22/19 at 06:01; Status DC Diphenhydramine HCl (Benadryl) 50 mg 1X ONCE IVP Last administered on 06/22/19at 07:46; Start 06/22/19 at 07:00; Stop 06/22/19 at 07:01; Status DC Sodium Chloride 500 ml @ 500 mls/hr 1X ONCE IV Last administered on 06/21/19at 15:38; Start 06/21/19 at 15:30; Stop 06/21/19 at 16:29; Status DC Levofloxacin (Levaquin) 250 mg DAILY06 PO ; Start 06/22/19 at 06:00; Stop at 22:23; Status DC Levofloxacin/ Dextrose 50 ml @ 50 mls/hr Q24H IV ; Start 06/21/19 at 22:30; Stop 06/21/19 at 22:34; Status DC Pantoprazole Sodium (PROTONIX VIAL for IV PUSH) 40 mg DAILYAC IVP Last administered on 06/28/19at 08:02; Start 06/22/19 at 07:30 Levofloxacin/ Dextrose 50 ml @ 50 mls/hr Q24H IV Last administered on 06/22/19at 05:43; Start 06/22/19 at 06:00; Stop 06/22/19 at 13:57; Status DC Iohexol (Omnipaque 300 Mg/ml) 400 ml 1X ONCE PO ; Start 06/22/19 at 07:45; Stop 06/22/19 at 07:50; Status DC Info (CONTRAST GIVEN -- Rx MONITORING) 1 each PRN DAILY PRN MC SEE COMMENTS; Start 06/22/19 at 08:00; Stop 06/24/19 at 07:59; Status DC Sodium Chloride 1,000 ml @ 100 mls/hr 1X ONCE IV Last administered on 06/22/19at 11:40; Start 06/22/19 at 11:15; Stop 06/22/19 at 21:14; Status DC Levothyroxine Sodium 25 mcg/ Sodium Chloride 5 ml @ 100 mls/hr Q72H IVP Last administered on 06/26/19at 07:49; Start 06/26/19 at 06:00 Sodium Chloride 1,000 ml @ 100 mls/hr 1X ONCE IV Last administered on at 11:59; Start 06/23/19 at 11:45; Stop 06/23/19 at 21:44; Status DC Propofol 20 ml @ As Directed STK-MED ONCE IV ; Start 06/24/19 at 09:27; Stop 06/24/19 at 09:28; Status DC Lidocaine HCl (Lidocaine Pf 2% Vial) 5 ml STK-MED ONCE .ROUTE ; Start 06/24/19 at 09:27; Stop 06/24/19 at 09:28; Status DC Rocuronium [place] (Zemuron) 50 mg STK-MED ONCE .ROUTE ; Start 06/24/19 at 09 :28; Stop 06/24/19 at 09:28; Status DC Fentanyl Citrate (Fentanyl 2ml Vial) 100 mcg STK-MED ONCE .ROUTE ; Start 06/24/19 at 09:28; Stop 06/24/19 at 09:28; Status DC Cefazolin Sodium/ Dextrose 50 ml @ 100 mls/hr 1X PREOP PRN IV protocol Last administered on 06/24/19at 11:37; Start 06/24/19 at 06:00; Stop 06/24/19 at 15:00; Status DC Fentanyl Citrate (Fentanyl 2ml Vial) 25 mcg PRN Q5MIN PRN IV MILD PAIN 1-3 Last administered on 06/24/19at 13:48; Start 06/24/19 at 10:00; Stop 06/25/19 at 09:59; Status DC Fentanyl Citrate (Fentanyl 2ml Vial) 50 mcg PRN Q5MIN PRN IV MODERATE TO SEVERE PAIN Last administered on 06/24/19at 14:08; Start 06/24/19 at 10:00; Stop 06/25/19 at 09:59; Status DC Morphine Sulfate (Morphine Sulfate) 1 mg PRN Q10MIN PRN IV SEVERE PAIN 7-10; Start 06/24/19 at 10:00; Stop 06/25/19 at 09:59; Status DC Ringer's Solution 1,000 ml @ 30 mls/hr Q24H IV ; Start 06/24/19 at 10:00; Stop 06/24/19 at 10:14; Status DC Hydromorphone HCl (Dilaudid) 0.5 mg PRN Q10MIN PRN IV SEV PAIN, Second choice; Start 06/24/19 at 10:00; Stop 06/25/19 at 09:59; Status DC Prochlorperazine Edisylate (Compazine) 5 mg PACU PRN PRN IV NAUSEA, MRX1 Last administered on 06/24/19at 13:27; Start 06/24/19 at 10:00; Stop 06/25/19 at 09:59; Status DC Sodium Chloride 1,000 ml @ 40 mls/hr Q24H IV Last administered on 06/24/19at 14:16; Start 06/24/19 at 10:15; Stop 06/27/19 at 10:52; Status DC Bupivacaine HCl/ Epinephrine Bitart (Sensorcain-Mpf Epi 0.5%-1:[id number]) 30 ml 1X ONCE INJ Last administered on 06/24/19at 12:53; Start 06/24/19 at 10:30; Stop 06/24/19 at 10:31; Status DC Desflurane (Suprane) 60 ml STK-MED ONCE IH ; Start 06/24/19 at 11:14; Stop 06/24/19 at 11:15; Status DC Ondansetron HCl (Zofran) 4 mg STK-MED ONCE .ROUTE ; Start 06/24/19 at 11:16; Stop 06/24/19 at 11:16; Status DC Dexamethasone Sodium Phosphate (Decadron) 4 mg STK-MED ONCE .ROUTE ; Start 06/24/19 at 11:17; Stop 06/24/19 at 11:17; Status DC Phenylephrine HCl (PHENYLEPHRINE in 0.9% NACL PF) 1 mg STK-MED ONCE IV ; Start 06/24/19 at 11:21; Stop 06/24/19 at 11:21; Status DC Sodium Chloride 1,000 ml @ 100 mls/hr 1X ONCE IV ; Start 06/24/19 at 11:30; Stop 06/24/19 at 21:29; Status DC Ephedrine Sulfate (ePHEDrine PF IN SALINE SYRINGE) 50 mg STK-MED ONCE IV ; Start 06/24/19 at 11:26; Stop 06/24/19 at 11:26; Status DC Ondansetron HCl (Zofran) 4 mg STK-MED ONCE .ROUTE ; Start 06/24/19 at 11:38; Stop 06/24/19 at 11:38; Status DC Neostigmine Methylsulfate (Neostigmine Methylsulfate) 5 mg STK-MED ONCE .ROUTE ; Start 06/24/19 at 11:39; Stop 06/24/19 at 11:39; Status DC Glycopyrrolate (Robinul) 1 mg STK-MED ONCE .ROUTE ; Start 06/24/19 at 11:39; Stop 06/24/19 at 11:39; Status DC Prochlorperazine Edisylate (Compazine) 10 mg STK-MED ONCE .ROUTE ; Start 06/24/19 at 12:59; Stop 06/24/19 at 13:00; Status DC Fentanyl Citrate (Fentanyl 2ml Vial) 100 mcg STK-MED ONCE .ROUTE ; Start 06/24/19 at 13:08; Stop 06/24/19 at 13:08; Status DC Sodium Chloride (Normal Saline Flush) 3 ml QSHIFT PRN IV AFTER MEDS AND BLOOD DRAWS; Start 06/24/19 at 13:15 Naloxone HCl (Narcan) 0.4 mg PRN Q2MIN PRN IV SEE INSTRUCTIONS; Start 06/24/19 at 13:15 Sodium Chloride 1,000 ml @ 25 mls/hr Q24H IV ; Start 06/24/19 at 13:14; Stop 06/25/19 at 11:05; Status DC Morphine Sulfate (Morphine Sulfate) 4 mg PRN Q4HRS PRN IV MODERATE TO SEVERE PAIN Last administered on 06/24/19at 20:50; Start 06/24/19 at 13:15 Sodium Chloride 1,000 ml @ 100 mls/hr 1X ONCE IV Last administered on 06/25/19at 11:04; Start 06/25/19 at 10:30; Stop 06/25/19 at 20:29; Status DC Info (Tpn Per Pharmacy) 1 each PRN DAILY PRN MC SEE COMMENTS Last administered on 06/27/19at 14:45; Start 06/26/19 at 11:15 Sodium Chloride 1,000 ml @ 100 mls/hr 1X ONCE IV Last administered on 06/26/19at 12:51; Start 06/26/19 at 11:15; Stop 06/26/19 at 21:14; Status DC Enoxaparin Sodium (Lovenox 30mg Syringe) 30 mg Q24H SQ Last administered on 06/27/19at 14:23; Start 06/26/19 at 14:00 Sodium Chloride 90 meq/Potassium Chloride 50 meq/ Potassium Phosphate 13.6 mmol/Magnesium Sulfate 10 meq/ Calcium Gluconate 10 meq/ Multivitamins 10 ml/Chromium/ Copper/Manganese/ Seleni/Zn 1 ml/ Total Parenteral Nutrition/Amino Acids/Dextrose/ Fat Emulsion Intravenous 1,200 ml @ 50 mls/hr TPN CONT IV Last administered on 06/26/19at 22:42; Start 06/26/19 at 22:00; Stop 06/27/19 at 21:59; Status DC Potassium Phosphate 13.6 mmol/Dextrose 104.5333 ml @ 52.267 m... 1X ONCE IV Last administered on 06/27/19at 14:23; Start 06/27/19 at 13:00; Stop 06/27/19 at 14:59; Status DC Sodium Chloride 90 meq/Potassium Chloride 50 meq/ Potassium Phosphate 17 mmol/ Magnesium Sulfate 10 meq/Calcium Gluconate 10 meq/ Multivitamins 10 ml/Chromium/ Copper/Manganese/ Seleni/Zn 1 ml/ Total Parenteral Nutrition/Amino Acids/Dextrose/ Fat Emulsion Intravenous 1,200 ml @ 50 mls/hr TPN CONT IV Last administered on 06/27/19at 22:00; Start 06/27/19 at 22:00; Stop 06/28/19 at 21:59 Active Scripts Active Reported Aspirin 81 Mg Tab.chew 1 Tab PO DAILY Ultram (Tramadol Hcl) 50 Mg Tablet 50 Mg PO Q4HRS PRN Potassium Chloride 10 Meq Tab.sr.24h 10 Meq PO DAILY Namenda (Memantine Hcl) 10 Mg Tablet 10 Mg PO BID Zofran (Ondansetron Hcl) 4 Mg Tablet 1 Tab PO PRN Q6-8HRS Imodium A-D (Loperamide Hcl) 1 Mg/7.5 Ml Liquid 1 Mg PO PRN PRN Omeprazole 20 Mg Tablet.dr 1 Tab PO DAILY Acetaminophen 325 Mg Tablet 325 Mg PO Q4HRS Donepezil Hcl 10 Mg Tablet 1 Tab PO DAILY Xeloda (Capecitabine) 500 Mg Tablet 2,000 Mg PO Q12HR Buspirone Hcl 5 Mg Tablet 1 Tab PO QID Melatonin 3 Mg Tablet 1 Tab PO QHS Levothyroxine Sodium 50 Mcg Tablet 50 Mcg PO DAILYAC Cerefolin Nac Caplet (Lmfol Ca/Acetyl/Mb12/Algal Oil) 1 Each Tablet 1 Each PO DAILY Xalatan (Latanoprost) 2.5 Ml Drops 1 Drop EACHEYE QHS Magnesium Oxide 400 Mg Tablet 1 Tab PO TID Pepcid (Famotidine) 20 Mg Tablet 20 Mg PO DAILY Ativan (Lorazepam) 0.5 Mg Tablet 0.5 Mg PO Q4HRS PRN Vitals/I & O Vital Sign - Last 24 Hours 06/27/19 06/27/19 06/27/19 06/27/19 11:00 15:00 19:00 19:40 Temp 98.2 97.8 97.4 98.2 97.8 97.4 Pulse 82 90 86 Resp 16 14 18 B/P (MAP) 117/56 (76) 116/61 (79) 126/56 (79) Pulse Ox 96 96 95 O2 Delivery Room Air Room Air Room Air Room Air 06/27/19 06/28/19 06/28/19 23:00 03:00 07:00 Temp 98.5 98.1 98.0 98.5 98.1 98.0 Pulse 74 91 84 Resp 18 18 18 B/P (MAP) 139/70 (93) 148/71 (96) 125/72 (89) Pulse Ox 95 94 96 O2 Delivery Room Air Room Air Room Air Intake and Output 06/27/19 06/27/19 06/28/19 15:00 23:00 07:00 Intake Total 1200 ml Output Total 400 ml 550 ml Balance -400 ml -550 ml 1200 ml Nutrition Consultation Dietary Evaluation: Recommendations by RD: PPN/TPN Comments: continue with TPN until able to advance diet Expected Outcomes/Goals: to meet > 75% est nutr needs via po intake- not met, goal ongoing Malnutrition Findings: Muscle Mass (Severe): Severe Depletion Food and Nutrition Intake (Sev: <50% est energy req 5days Body Fat Depletion (Non Severe: Mod to Severe Weight Status: Underweight MEHDI WARD MD Jun 28, 2019 10:47
[2019-06-28 11:00] VITALS: BP 126/68
[2019-06-28] MEDS ORDERED: MORPHINE SULFATE 4 MG/ML VIAL. IV PRN ×2 (14:00→14:15)
[2019-06-28] MEDS: ENOXAPARIN 30 MG/0.3 ML SYRINGE. SQ SCH (14:15)
[2019-06-28] MEDS: MORPHINE SULFATE 2 MG/ML VIAL. IV PRN (14:16)
[2019-06-28] MEDS: TPN PER PHARMACY MC PRN ×3 (14:17→14:30)
--- NOTE | 2019-06-28 14:27 | NUR ---
Pharmacy TPN Dosing Note S: ROSA SCHREIBER is a 84 year old F Currently receiving Central Continuous TPN started 06/26/19 B:Pertinent PMH: SBO S/P RESECTION 06/24 Height: 5 feet, 6 inches Weight: 48.256785 kg Current diet: NPO LABS: Sodium: 139 Potassium: 4.2 Chloride: 109 Calcium: 7.9 Corrected Calcium: 9.58 Magnesium: 2 CO2: 20 SCr: 0.8 Glucose: 122 Albumin: 1.9 AST: 25 ALT: 19 TPN FORMULA: TPN TYPE: Central Continuous AMINO ACIDS: 60 gm DEXTROSE: 195 gm LIPIDS: 20 gm SODIUM CHLORIDE: 80 mEq SODIUM ACETATE: - mEq SODIUM PHOSPHATE: 3 mmol POTASSIUM CHLORIDE: 50 mEq POTASSIUM ACETATE: - mEq POTASSIUM PHOSPHATE: 17 mmol MAGNESIUM: 10 mEq CALCIUM: - mEq INSULIN: - units MULTIPLE VITAMIN: 10 ml TRACE ELEMENTS: MTE 5 1ML ml(s) TPN PLAN: -Phos up to 2.5 today. Will increase total phosphate in TPN to 20 mmol. Will add some sodium phosphate to make total of 20 mmol of Phosphate. At this time because patient needs phosphate added to TPN will remove calcium from TPN (corrected calcium 9.58) so not to exceed CaPO4 ratio of 26. -Chloride slightly elevated and CO2 slightly low. Will remove some NaCl from TPN and add in sodium phosphate as stated above. -Continue same TPN rate/fluid amount as patient's BUN/SCr ratio is improving. -BMP, mag, phos tomorrow per protocol. R: Continue TPN with addition of sodium phosphate, decrease of sodium chloride and removal of calcium. Will monitor electrolytes, glucose, and tolerance to TPN. STEPAN ORTEGA, [facility], 06/28/19 [id number]
[2019-06-28 15:00] VITALS: BP 132/62
[2019-06-28 19:00] VITALS: BP 125/89
[2019-06-28] MEDS: LATANOPROST 0.005% OPHTH SOLUTION 2.5ML BOTTLE. OU SCH (20:30)
[2019-06-28] MEDS ORDERED: DEXTROSE 70% IV SCH ×10 (22:00)
[2019-06-28] MEDS ORDERED: AMINO ACID IV SCH ×10 (22:00)
[2019-06-28] MEDS ORDERED: [UNRECOGNIZED DRUG - OTHER] IV SCH ×10 (22:00)
[2019-06-28] MEDS ORDERED: TOTAL PARENTERAL NUTRITION IV SCH ×10 (22:00)
[2019-06-28 23:00] VITALS: BP 122/64
[2019-06-29 03:28] VITALS: BP 121/70
[2019-06-29] MEDS: LEVOTHYROXINE SODIUM INJ 25 MCG in NORMAL SALINE 5 ML IVP SCH (06:24)
[2019-06-29 06:40] LABS: BASO # 0.1 x10^3/uL (0.0-0.2); BASO % 1 % (0-3); EOS # 0.3 x10^3/uL (0.0-0.7); EOS % 4 % (0-3); HEMATOCRIT 24.4 % (36.0-47.0); HEMOGLOBIN 8.2 g/dL (12.0-15.5); LYMPH % 12 % (24-48); MEAN CORPUSCULAR HEMOGLOBIN 36 pg (25-35); MEAN CORPUSCULAR HGB CONC 34 g/dL (31-37); MEAN CORPUSCULAR VOLUME 107 fL (79-100); MONO # 0.6 x10^3/uL (0.0-1.1); MONO % 8 % (0-9); NEUT # 6.2 x10^3/uL (1.8-7.7); NEUT % 76 % (31-73); PLATELET COUNT 185 x10^3/uL (140-400); RED BLOOD COUNT 2.29 x10^6/uL (3.50-5.40); RED CELL DISTRIBUTION WIDTH 22.1 % (11.5-14.5); WHITE BLOOD COUNT 8.2 x10^3/uL (4.0-11.0)
[2019-06-29 07:00] VITALS: BP 113/78
[2019-06-29 07:00] LABS: CALCIUM 7.8 mg/dL (8.5-10.1); CREATININE 0.8 mg/dL (0.6-1.0); GFR 68.2; MAGNESIUM 1.9 mg/dL (1.8-2.4); PHOSPHORUS 2.5 mg/dL (2.6-4.7)
[2019-06-29] MEDS: MORPHINE SULFATE 2 MG/ML VIAL. IV PRN (08:44)
[2019-06-29] MEDS: PANTOPRAZOLE IV PUSH 40 MG VIAL. IVP SCH (08:44)
[2019-06-29] MEDS: busPIRone 5 MG TABLET. PO SCH ×4 (08:44→21:31)
[2019-06-29] MEDS: DONEPEZIL HCL 10 MG TABLET. PO SCH (08:44)
[2019-06-29] MEDS: POTASSIUM CHLORIDE 10 MEQ TABLET.ER. PO SCH (08:44)
--- NOTE | 2019-06-29 10:24 | PDOC ---
PROGRESS NOTES Chief Complaint Chief Complaint impression acute abd pain small bowel obstruction, lactate elevated from this metastatic breast cancer malnutrition acute on chronic renal failure, vasomotor, cognitive decline, dementia Hx, chronic Small-bowel obstruction secondary to a fibrous adhesion. 06/24 kub Grossly unchanged appearance of the abdomen including dilated loops of central small bowel containing dilute enteric contrast. clamp NG increase activity Past Medical History Cardiovascular: HTN CENTRAL NERVOUS SYSTEM: Dementia Musculoskeletal: Osteoarthritis Endocrine: Hypothyroidism Past Surgical History Past Surgical History: Colon Resection, Other (port placement) Family History Family History: No Significant Social History Smoke: No ALCOHOL: none 39 min pt exam, chart review, > 50% of time spent with exam, chart review, pt care coordination History of Present Illness History of Present Illness Dr. Weiner, 06/24 ec-lap, , release small-bowel obstruction, small bowel resection with primary anastomosis. renal funciton better still getting a lot of fluid out of NG pain is minimal, change to TPN as no flatus, and still needs NG Vitals Vitals Vital Signs Date Time Temp Pulse Resp B/P (MAP) Pulse Ox O2 Delivery O2 Flow Rate FiO2 06/29/19 10:12 Room Air 06/29/19 07:00 98.1 87 14 113/78 (90) 97 98.1 06/28/19 07:55 2.0 Physical Exam General: Alert, Oriented X3, Cooperative, No acute distress, mild distress Heart: Regular rate, Normal S1, Normal S2 Lungs: Clear Abdomen: Soft, Other (incision c/d/i, no erythema, ND) Extremities: No clubbing, No cyanosis Skin: No breakdown Labs LABS PEC #: [id number] JOEY: 06/20/19 STATUS: COMP REQ #: [id number] RECD: 06/20/[address]: MEHDI WARD MD SOURCE: VOID ENTR: 06/20/[address]: HUSSEIN WEINER MD [facility] DANIEL AUSTIN MD, GALEN L MD ORDERED: URINE CULTURE Procedure Result URINE CULTURE Final Final report URINE CULTURE RES 1 Final No growth Performed at: DA - [facility] [address] [facility] [address], [place], [place] [id number] Swimming Instructor: ZORAN Presley MD, Phone: [phone] Laboratory Tests Test 06/28/19 11:43 06/29/19 06:20 Glucose (Fingerstick) 94 mg/dL (70-99) White Blood Count 8.2 x10^3/uL (4.0-11.0) Red Blood Count 2.29 x10^6/uL (3.50-5.40) Hemoglobin 8.2 g/dL (12.0-15.5) Hematocrit 24.4 % (36.0-47.0) Mean Corpuscular Volume 107 fL (79-100) Mean Corpuscular Hemoglobin 36 pg (25-35) Mean Corpuscular Hemoglobin Concent 34 g/dL (31-37) Red Cell Distribution Width 22.1 % (11.5-14.5) Platelet Count 185 x10^3/uL (140-400) Neutrophils (%) (Auto) 76 % (31-73) Lymphocytes (%) (Auto) 12 % (24-48) Monocytes (%) (Auto) 8 % (0-9) Eosinophils (%) (Auto) 4 % (0-3) Basophils (%) (Auto) 1 % (0-3) Neutrophils # (Auto) 6.2 x10^3/uL (1.8-7.7) Lymphocytes # (Auto) 1.0 x10^3/uL (1.0-4.8) Monocytes # (Auto) 0.6 x10^3/uL (0.0-1.1) Eosinophils # (Auto) 0.3 x10^3/uL (0.0-0.7) Basophils # (Auto) 0.1 x10^3/uL (0.0-0.2) Sodium Level 139 mmol/L (136-145) Potassium Level 5.0 mmol/L (3.5-5.1) Chloride Level 111 mmol/L (98-107) Carbon Dioxide Level 20 mmol/L (21-32) Anion Gap 8 (6-14) Blood Urea Nitrogen 26 mg/dL (7-20) Creatinine 0.8 mg/dL (0.6-1.0) Estimated GFR (Cockcroft-Gault) 68.2 Glucose Level 111 mg/dL (70-99) Calcium Level 7.8 mg/dL (8.5-10.1) Phosphorus Level 2.5 mg/dL (2.6-4.7) Magnesium Level 1.9 mg/dL (1.8-2.4) Assessment and Plan Assessmemt and Plan Problems Medical Problems: (1) RUFINO (acute kidney injury) Status: Acute (2) Dehydration Status: Acute (3) Encephalopathy Status: Acute (4) Small bowel obstruction Status: Acute Comment Review of Relevant I have reviewed the following items lola (where applicable) has been applied. Labs Laboratory Tests Test 06/28/19 06:00 06/28/19 11:43 06/29/19 06:20 White Blood Count 8.2 x10^3/uL (4.0-11.0) 8.2 x10^3/uL (4.0-11.0) Red Blood Count 2.34 x10^6/uL (3.50-5.40) 2.29 x10^6/uL (3.50-5.40) Hemoglobin 8.6 g/dL (12.0-15.5) 8.2 g/dL (12.0-15.5) Hematocrit 24.8 % (36.0-47.0) 24.4 % (36.0-47.0) Mean Corpuscular Volume 106 fL (79-100) 107 fL (79-100) Mean Corpuscular Hemoglobin 37 pg (25-35) 36 pg (25-35) Mean Corpuscular Hemoglobin Concent 35 g/dL (31-37) 34 g/dL (31-37) Red Cell Distribution Width 21.8 % (11.5-14.5) 22.1 % (11.5-14.5) Platelet Count 174 x10^3/uL (140-400) 185 x10^3/uL (140-400) Neutrophils (%) (Auto) 79 % (31-73) 76 % (31-73) Lymphocytes (%) (Auto) 11 % (24-48) 12 % (24-48) Monocytes (%) (Auto) 6 % (0-9) 8 % (0-9) Eosinophils (%) (Auto) 3 % (0-3) 4 % (0-3) Basophils (%) (Auto) 0 % (0-3) 1 % (0-3) Neutrophils # (Auto) 6.5 x10^3/uL (1.8-7.7) 6.2 x10^3/uL (1.8-7.7) Lymphocytes # (Auto) 0.9 x10^3/uL (1.0-4.8) 1.0 x10^3/uL (1.0-4.8) Monocytes # (Auto) 0.5 x10^3/uL (0.0-1.1) 0.6 x10^3/uL (0.0-1.1) Eosinophils # (Auto) 0.3 x10^3/uL (0.0-0.7) 0.3 x10^3/uL (0.0-0.7) Basophils # (Auto) 0.0 x10^3/uL (0.0-0.2) 0.1 x10^3/uL (0.0-0.2) Sodium Level 139 mmol/L (136-145) 139 mmol/L (136-145) Potassium Level 4.2 mmol/L (3.5-5.1) 5.0 mmol/L (3.5-5.1) Chloride Level 109 mmol/L (98-107) 111 mmol/L (98-107) Carbon Dioxide Level 20 mmol/L (21-32) 20 mmol/L (21-32) Anion Gap 10 (6-14) 8 (6-14) Blood Urea Nitrogen 28 mg/dL (7-20) 26 mg/dL (7-20) Creatinine 0.8 mg/dL (0.6-1.0) 0.8 mg/dL (0.6-1.0) Estimated GFR (Cockcroft-Gault) 68.2 68.2 Glucose Level 122 mg/dL (70-99) 111 mg/dL (70-99) Calcium Level 7.9 mg/dL (8.5-10.1) 7.8 mg/dL (8.5-10.1) Phosphorus Level 2.5 mg/dL (2.6-4.7) 2.5 mg/dL (2.6-4.7) Magnesium Level 2.0 mg/dL (1.8-2.4) 1.9 mg/dL (1.8-2.4) Glucose (Fingerstick) 94 mg/dL (70-99) Laboratory Tests Test 06/28/19 11:43 06/29/19 06:20 Glucose (Fingerstick) 94 mg/dL (70-99) White Blood Count 8.2 x10^3/uL (4.0-11.0) Red Blood Count 2.29 x10^6/uL (3.50-5.40) Hemoglobin 8.2 g/dL (12.0-15.5) Hematocrit 24.4 % (36.0-47.0) Mean Corpuscular Volume 107 fL (79-100) Mean Corpuscular Hemoglobin 36 pg (25-35) Mean Corpuscular Hemoglobin Concent 34 g/dL (31-37) Red Cell Distribution Width 22.1 % (11.5-14.5) Platelet Count 185 x10^3/uL (140-400) Neutrophils (%) (Auto) 76 % (31-73) Lymphocytes (%) (Auto) 12 % (24-48) Monocytes (%) (Auto) 8 % (0-9) Eosinophils (%) (Auto) 4 % (0-3) Basophils (%) (Auto) 1 % (0-3) Neutrophils # (Auto) 6.2 x10^3/uL (1.8-7.7) Lymphocytes # (Auto) 1.0 x10^3/uL (1.0-4.8) Monocytes # (Auto) 0.6 x10^3/uL (0.0-1.1) Eosinophils # (Auto) 0.3 x10^3/uL (0.0-0.7) Basophils # (Auto) 0.1 x10^3/uL (0.0-0.2) Sodium Level 139 mmol/L (136-145) Potassium Level 5.0 mmol/L (3.5-5.1) Chloride Level 111 mmol/L (98-107) Carbon Dioxide Level 20 mmol/L (21-32) Anion Gap 8 (6-14) Blood Urea Nitrogen 26 mg/dL (7-20) Creatinine 0.8 mg/dL (0.6-1.0) Estimated GFR (Cockcroft-Gault) 68.2 Glucose Level 111 mg/dL (70-99) Calcium Level 7.8 mg/dL (8.5-10.1) Phosphorus Level 2.5 mg/dL (2.6-4.7) Magnesium Level 1.9 mg/dL (1.8-2.4) Microbiology 06/20/19 Urine Culture - Final, Complete 06/20/19 Urine Culture Result 1 (YOBANY) - Final, Complete Medications Current Medications Potassium Chloride/Sodium Chloride 1,000 ml @ 125 mls/hr Q8H IV Last administered on 06/20/19at 07:57; Start 06/19/19 at 22:15; Stop 06/20/19 at 08:50; Status DC Throat Lozenges (Chloraseptic) 1 spray PRN Q2HR PRN PO SORE THROAT, 2ND CHOICE; Start 06/19/19 at 22:15 Throat Lozenges (Cepacol Sore Throat Lozenge) 1 juan PRN Q2HRS PRN PO SORE THROAT, 1ST CHOICE; Start 06/19/19 at 22:15 Sodium Chloride 250 ml @ 250 mls/hr 1X ONCE IV Last administered on 06/20/19at 03:24; Start 06/20/19 at 02:45; Stop 06/20/19 at 03:45; Status DC Ondansetron HCl (Zofran) 4 mg PRN Q6HRS PRN IV NAUSEA/VOMITING Last administered on 06/26/19at 21:08; Start 06/20/19 at 08:00 Buspirone HCl (Buspar) 5 mg QID PO ; Start 06/20/19 at 09:00 Donepezil HCl (Aricept) 10 mg DAILY PO ; Start 06/20/19 at 09:00 Latanoprost (Xalatan) 1 drop QHS OU Last administered on 06/28/19at 20:30; Start 06/20/19 at 21:00 Levothyroxine Sodium (Synthroid) 50 mcg DAILYAC PO ; Start 06/20/19 at 09:00; Stop 06/22/19 at 15:39; Status DC Lorazepam (Ativan) 0.5 mg PRN Q4HRS PRN PO ANXIETY / AGITATION; Start 06/20/19 at 08:45 Potassium Chloride (Klor-Con) 10 meq DAILY PO ; Start 06/20/19 at 09:00 Non-Formulary Medication (Melatonin ) 1 tab QHS PO ; Start 06/20/19 at 21:00; Status UNV Pantoprazole Sodium (Protonix) 40 mg DAILYAC PO ; Start 06/20/19 at 09:00; Stop 06/21/19 at 22:23; Status DC Ondansetron HCl (Zofran Odt) 4 mg PRN Q6HRS PRN PO NAUSEA/VOMITING Last adminis tered on 06/22/19at 05:57; Start 06/20/19 at 09:00 Amino Acids/ Glycerin/ Electrolytes 1,000 ml @ 80 mls/hr [id number] IV Last adm inistered on 06/26/19at 10:41; Start 06/20/19 at 09:00; Stop 06/26/19 at 21:59; Status DC Sodium Chloride 1,000 ml @ 1,000 mls/hr 1X ONCE IV Last administered on 06/20/19at 13:50; Start 06/20/19 at 13:30; Stop 06/20/19 at 14:29; Status DC Methylprednisolone Sodium Succinate (SOLU-Medrol 125MG VIAL) 125 mg 1X ONCE IV Last administered on 06/21/19at 17:15; Start 06/21/19 at 18:00; Stop 06/21/19 at 18:01; Status DC Methylprednisolone Sodium Succinate (SOLU-Medrol 125MG VIAL) 125 mg 1X ONCE IV Last administered on 06/22/19at 01:38; Start 06/22/19 at 00:00; Stop 06/22/19 at 00:01; Status DC Methylprednisolone Sodium Succinate (SOLU-Medrol 125MG VIAL) 125 mg 1X ONCE IV Last administered on 06/22/19at 05:43; Start 06/22/19 at 06:00; Stop 06/22/19 at 06:01; Status DC Diphenhydramine HCl (Benadryl) 50 mg 1X ONCE IVP Last administered on 06/22/19at 07:46; Start 06/22/19 at 07:00; Stop 06/22/19 at 07:01; Status DC Sodium Chloride 500 ml @ 500 mls/hr 1X ONCE IV Last administered on 06/21/19at 15:38; Start 06/21/19 at 15:30; Stop 06/21/19 at 16:29; Status DC Levofloxacin (Levaquin) 250 mg DAILY06 PO ; Start 06/22/19 at 06:00; Stop at 22:23; Status DC Levofloxacin/ Dextrose 50 ml @ 50 mls/hr Q24H IV ; Start 06/21/19 at 22:30; Stop 06/21/19 at 22:34; Status DC Pantoprazole Sodium (PROTONIX VIAL for IV PUSH) 40 mg DAILYAC IVP Last administered on 06/29/19at 08:44; Start 06/22/19 at 07:30 Levofloxacin/ Dextrose 50 ml @ 50 mls/hr Q24H IV Last administered on 06/22/19at 05:43; Start 06/22/19 at 06:00; Stop 06/22/19 at 13:57; Status DC Iohexol (Omnipaque 300 Mg/ml) 400 ml 1X ONCE PO ; Start 06/22/19 at 07:45; Stop 06/22/19 at 07:50; Status DC Info (CONTRAST GIVEN -- Rx MONITORING) 1 each PRN DAILY PRN MC SEE COMMENTS; Start 06/22/19 at 08:00; Stop 06/24/19 at 07:59; Status DC Sodium Chloride 1,000 ml @ 100 mls/hr 1X ONCE IV Last administered on 06/22/19at 11:40; Start 06/22/19 at 11:15; Stop 06/22/19 at 21:14; Status DC Levothyroxine Sodium 25 mcg/ Sodium Chloride 5 ml @ 100 mls/hr Q72H IVP Last administered on 06/29/19at 06:24; Start 06/26/19 at 06:00 Sodium Chloride 1,000 ml @ 100 mls/hr 1X ONCE IV Last administered on at 11:59; Start 06/23/19 at 11:45; Stop 06/23/19 at 21:44; Status DC Propofol 20 ml @ As Directed STK-MED ONCE IV ; Start 06/24/19 at 09:27; Stop 06/24/19 at 09:28; Status DC Lidocaine HCl (Lidocaine Pf 2% Vial) 5 ml STK-MED ONCE .ROUTE ; Start 06/24/19 at 09:27; Stop 06/24/19 at 09:28; Status DC Rocuronium [place] (Zemuron) 50 mg STK-MED ONCE .ROUTE ; Start 06/24/19 at 09 :28; Stop 06/24/19 at 09:28; Status DC Fentanyl Citrate (Fentanyl 2ml Vial) 100 mcg STK-MED ONCE .ROUTE ; Start 06/24/19 at 09:28; Stop 06/24/19 at 09:28; Status DC Cefazolin Sodium/ Dextrose 50 ml @ 100 mls/hr 1X PREOP PRN IV protocol Last administered on 06/24/19at 11:37; Start 06/24/19 at 06:00; Stop 06/24/19 at 15:00; Status DC Fentanyl Citrate (Fentanyl 2ml Vial) 25 mcg PRN Q5MIN PRN IV MILD PAIN 1-3 Last administered on 06/24/19at 13:48; Start 06/24/19 at 10:00; Stop 06/25/19 at 09:59; Status DC Fentanyl Citrate (Fentanyl 2ml Vial) 50 mcg PRN Q5MIN PRN IV MODERATE TO SEVERE PAIN Last administered on 06/24/19at 14:08; Start 06/24/19 at 10:00; Stop 06/25/19 at 09:59; Status DC Morphine Sulfate (Morphine Sulfate) 1 mg PRN Q10MIN PRN IV SEVERE PAIN 7-10; Start 06/24/19 at 10:00; Stop 06/25/19 at 09:59; Status DC Ringer's Solution 1,000 ml @ 30 mls/hr Q24H IV ; Start 06/24/19 at 10:00; Stop 06/24/19 at 10:14; Status DC Hydromorphone HCl (Dilaudid) 0.5 mg PRN Q10MIN PRN IV SEV PAIN, Second choice; Start 06/24/19 at 10:00; Stop 06/25/19 at 09:59; Status DC Prochlorperazine Edisylate (Compazine) 5 mg PACU PRN PRN IV NAUSEA, MRX1 Last administered on 06/24/19at 13:27; Start 06/24/19 at 10:00; Stop 06/25/19 at 09:59; Status DC Sodium Chloride 1,000 ml @ 40 mls/hr Q24H IV Last administered on 06/24/19at 14:16; Start 06/24/19 at 10:15; Stop 06/27/19 at 10:52; Status DC Bupivacaine HCl/ Epinephrine Bitart (Sensorcain-Mpf Epi 0.5%-1:[id number]) 30 ml 1X ONCE INJ Last administered on 06/24/19at 12:53; Start 06/24/19 at 10:30; Stop 06/24/19 at 10:31; Status DC Desflurane (Suprane) 60 ml STK-MED ONCE IH ; Start 06/24/19 at 11:14; Stop 06/24/19 at 11:15; Status DC Ondansetron HCl (Zofran) 4 mg STK-MED ONCE .ROUTE ; Start 06/24/19 at 11:16; Stop 06/24/19 at 11:16; Status DC Dexamethasone Sodium Phosphate (Decadron) 4 mg STK-MED ONCE .ROUTE ; Start 06/24/19 at 11:17; Stop 06/24/19 at 11:17; Status DC Phenylephrine HCl (PHENYLEPHRINE in 0.9% NACL PF) 1 mg STK-MED ONCE IV ; Start 06/24/19 at 11:21; Stop 06/24/19 at 11:21; Status DC Sodium Chloride 1,000 ml @ 100 mls/hr 1X ONCE IV ; Start 06/24/19 at 11:30; Stop 06/24/19 at 21:29; Status DC Ephedrine Sulfate (ePHEDrine PF IN SALINE SYRINGE) 50 mg STK-MED ONCE IV ; Start 06/24/19 at 11:26; Stop 06/24/19 at 11:26; Status DC Ondansetron HCl (Zofran) 4 mg STK-MED ONCE .ROUTE ; Start 06/24/19 at 11:38; Stop 06/24/19 at 11:38; Status DC Neostigmine Methylsulfate (Neostigmine Methylsulfate) 5 mg STK-MED ONCE .ROUTE ; Start 06/24/19 at 11:39; Stop 06/24/19 at 11:39; Status DC Glycopyrrolate (Robinul) 1 mg STK-MED ONCE .ROUTE ; Start 06/24/19 at 11:39; Stop 06/24/19 at 11:39; Status DC Prochlorperazine Edisylate (Compazine) 10 mg STK-MED ONCE .ROUTE ; Start 06/24/19 at 12:59; Stop 06/24/19 at 13:00; Status DC Fentanyl Citrate (Fentanyl 2ml Vial) 100 mcg STK-MED ONCE .ROUTE ; Start 06/24/19 at 13:08; Stop 06/24/19 at 13:08; Status DC Sodium Chloride (Normal Saline Flush) 3 ml QSHIFT PRN IV AFTER MEDS AND BLOOD DRAWS; Start 06/24/19 at 13:15 Naloxone HCl (Narcan) 0.4 mg PRN Q2MIN PRN IV SEE INSTRUCTIONS; Start 06/24/19 at 13:15 Sodium Chloride 1,000 ml @ 25 mls/hr Q24H IV ; Start 06/24/19 at 13:14; Stop 06/25/19 at 11:05; Status DC Morphine Sulfate (Morphine Sulfate) 4 mg PRN Q4HRS PRN IV MODERATE TO SEVERE PAIN Last administered on 06/24/19at 20:50; Start 06/24/19 at 13:15; Stop 06/28/19 at 13:57; Status DC Sodium Chloride 1,000 ml @ 100 mls/hr 1X ONCE IV Last administered on 06/25/19at 11:04; Start 06/25/19 at 10:30; Stop 06/25/19 at 20:29; Status DC Info (Tpn Per Pharmacy) 1 each PRN DAILY PRN MC SEE COMMENTS Last administered on 06/28/19at 14:30; Start 06/26/19 at 11:15 Sodium Chloride 1,000 ml @ 100 mls/hr 1X ONCE IV Last administered on 06/26/19at 12:51; Start 06/26/19 at 11:15; Stop 06/26/19 at 21:14; Status DC Enoxaparin Sodium (Lovenox 30mg Syringe) 30 mg Q24H SQ Last administered on 06/28/19at 14:16; Start 06/26/19 at 14:00; Stop 06/28/19 at 14:32; Status DC Sodium Chloride 90 meq/Potassium Chloride 50 meq/ Potassium Phosphate 13.6 mmol/Magnesium Sulfate 10 meq/ Calcium Gluconate 10 meq/ Multivitamins 10 ml/Chromium/ Copper/Manganese/ Seleni/Zn 1 ml/ Total Parenteral Nutrition/Amino Acids/Dextrose/ Fat Emulsion Intravenous 1,200 ml @ 50 mls/hr TPN CONT IV Last administered on 06/26/19at 22:42; Start 06/26/19 at 22:00; Stop 06/27/19 at 21:59; Status DC Potassium Phosphate 13.6 mmol/Dextrose 104.5333 ml @ 52.267 m... 1X ONCE IV Last administered on 06/27/19at 14:23; Start 06/27/19 at 13:00; Stop 06/27/19 at 14:59; Status DC Sodium Chloride 90 meq/Potassium Chloride 50 meq/ Potassium Phosphate 17 mmol/ Magnesium Sulfate 10 meq/Calcium Gluconate 10 meq/ Multivitamins 10 ml/Chromium/ Copper/Manganese/ Seleni/Zn 1 ml/ Total Parenteral Nutrition/Amino Acids/Dextrose/ Fat Emulsion Intravenous 1,200 ml @ 50 mls/hr TPN CONT IV Last administered on 06/27/19at 22:00; Start 06/27/19 at 22:00; Stop 06/28/19 at 21:59; Status DC Morphine Sulfate (Morphine Sulfate) 3 mg PRN Q4HRS PRN IV MODERATE TO SEVERE PAIN; Start 06/28/19 at 14:00 Morphine Sulfate (Morphine Sulfate) 2 mg PRN Q2HR PRN IV MILD PAIN 1-3 Last administered on 06/29/19at 08:44; Start 06/28/19 at 14:00 Morphine Sulfate (Morphine Sulfate) 4 mg PRN Q4HRS PRN IV MODERATE TO SEVERE PAIN; Start 06/28/19 at 14:15 Sodium Chloride 80 meq/Sodium Phosphate 3 mmol/ Potassium Chloride 50 meq/ Potassium Phosphate 17 mmol/ Magnesium Sulfate 10 meq/ Multivitamins 10 ml/Chromium/ Copper/Manganese/ Seleni/Zn 1 ml/ Total Parenteral Nutrition/Amino Acids/Dextrose/ Fat Emulsion Intravenous 1,200 ml @ 50 mls/hr TPN CONT IV Last administered on 06/28/19at 22:14; Start 06/28/19 at 22:00; Stop 06/29/19 at 21:59 Enoxaparin Sodium (Lovenox 40mg Syringe) 40 mg Q24H SQ ; Start 06/29/19 at 14:00; Status Cancel Enoxaparin Sodium (Lovenox 30mg Syringe) 30 mg Q24H SQ ; Start 06/29/19 at 14:00 Active Scripts Active Reported Aspirin 81 Mg Tab.chew 1 Tab PO DAILY Ultram (Tramadol Hcl) 50 Mg Tablet 50 Mg PO Q4HRS PRN Potassium Chloride 10 Meq Tab.sr.24h 10 Meq PO DAILY Namenda (Memantine Hcl) 10 Mg Tablet 10 Mg PO BID Zofran (Ondansetron Hcl) 4 Mg Tablet 1 Tab PO PRN Q6-8HRS Imodium A-D (Loperamide Hcl) 1 Mg/7.5 Ml Liquid 1 Mg PO PRN PRN Omeprazole 20 Mg Tablet.dr 1 Tab PO DAILY Acetaminophen 325 Mg Tablet 325 Mg PO Q4HRS Donepezil Hcl 10 Mg Tablet 1 Tab PO DAILY Xeloda (Capecitabine) 500 Mg Tablet 2,000 Mg PO Q12HR Buspirone Hcl 5 Mg Tablet 1 Tab PO QID Melatonin 3 Mg Tablet 1 Tab PO QHS Levothyroxine Sodium 50 Mcg Tablet 50 Mcg PO DAILYAC Cerefolin Nac Caplet (Lmfol Ca/Acetyl/Mb12/Algal Oil) 1 Each Tablet 1 Each PO DAILY Xalatan (Latanoprost) 2.5 Ml Drops 1 Drop EACHEYE QHS Magnesium Oxide 400 Mg Tablet 1 Tab PO TID Pepcid (Famotidine) 20 Mg Tablet 20 Mg PO DAILY Ativan (Lorazepam) 0.5 Mg Tablet 0.5 Mg PO Q4HRS PRN Vitals/I & O Vital Sign - Last 24 Hours 06/28/19 06/28/19 06/28/19 06/28/19 11:00 14:16 15:00 15:15 Temp 98.0 97.8 98.0 97.8 Pulse 87 78 Resp 18 16 18 16 B/P (MAP) 126/68 (87) 132/62 (85) Pulse Ox 96 96 O2 Delivery Room Air Room Air Room Air Room Air 06/28/19 06/28/19 06/28/19 06/29/19 19:00 19:35 23:00 03:28 Temp 98.2 98.3 98.4 98.2 98.3 98.4 Pulse 78 82 73 Resp 18 18 B/P (MAP) 125/89 (101) 122/64 (83) 121/70 (87) Pulse Ox 94 95 99 O2 Delivery Room Air Room Air Room Air Room Air 06/29/19 06/29/19 06/29/19 06/29/19 07:00 08:00 08:44 10:12 Temp 98.1 98.1 Pulse 87 Resp 14 B/P (MAP) 113/78 (90) Pulse Ox 97 O2 Delivery Room Air Room Air Room Air Room Air Intake and Output 06/28/19 06/28/19 06/29/19 15:00 23:00 07:00 Intake Total 30 ml 1200 ml Balance 30 ml 1200 ml Nutrition Consultation Dietary Evaluation: Recommendations by RD: PPN/TPN Comments: continue with TPN until able to advance diet Expected Outcomes/Goals: to meet > 75% est nutr needs via po intake- not met, goal ongoing Malnutrition Findings: Muscle Mass (Severe): Severe Depletion Food and Nutrition Intake (Sev: <50% est energy req 5days Body Fat Depletion (Non Severe: Mod to Severe Weight Status: Underweight MEHDI WARD MD Jun 29, 2019 10:24
[2019-06-29 11:00] VITALS: BP 111/62
[2019-06-29] MEDS: TPN PER PHARMACY MC PRN (13:05)
--- NOTE | 2019-06-29 13:05 | NUR ---
Pharmacy TPN Dosing Note S: ROSA SCHREIBER is a 84 year old F Currently receiving Central Continuous TPN started 06/26/19 B:Pertinent PMH: SBO S/P RESECTION 06/24 Current diet: NPO LABS: Sodium: 139 Potassium: 5.0 Chloride: 111 Calcium: 7.8 Corrected Calcium: 9.48 Magnesium: 1.9 CO2: 20 SCr: 0.8 Glucose: 111 Albumin: 1.9 AST: 25 ALT: 19 TPN FORMULA: TPN TYPE: Central Continuous AMINO ACIDS: 60 gm DEXTROSE: 195 gm LIPIDS: 20 gm SODIUM CHLORIDE: 60 mEq SODIUM ACETATE: - mEq SODIUM PHOSPHATE: 13 mmol POTASSIUM CHLORIDE: 40 mEq POTASSIUM ACETATE: - mEq POTASSIUM PHOSPHATE: 17 mmol MAGNESIUM: 10 mEq CALCIUM: 0 mEq INSULIN: - units MULTIPLE VITAMIN: 10 ml TRACE ELEMENTS: MTE 5 1ML ml(s) TPN PLAN: -continue to adjust lytes based on labs -Continue same TPN rate/fluid amount as patient's BUN/SCr ratio is improving. -BMP, mag, phos tomorrow per protocol. R: Change TPN lytes as above Will monitor electrolytes, glucose, and tolerance to TPN. JENNIFER DURANT [facility], 06/29/19 [id number]
--- NOTE | 2019-06-29 13:40 | PDOC ---
SURGICAL PROGRESS NOTE Subjective Pt without c/o, no N/V with NGT clamped Vital Signs Vital Signs Date Time Temp Pulse Resp B/P (MAP) Pulse Ox O2 Delivery O2 Flow Rate FiO2 06/29/19 11:00 97.9 84 16 111/62 (78) 99 Room Air 97.9 06/28/19 07:55 2.0 I&O l Intake and Output 06/29/19 07:00 Intake Total 1230 ml Balance 1230 ml Intake Oral 30 ml IV Total 600 ml Other 600 ml # Voids 6 General: Alert, No acute distress Abdomen: Soft, No tenderness Labs Laboratory Tests Test 06/28/19 06:00 06/28/19 11:43 06/29/19 06:20 White Blood Count 8.2 x10^3/uL (4.0-11.0) 8.2 x10^3/uL (4.0-11.0) Red Blood Count 2.34 x10^6/uL (3.50-5.40) 2.29 x10^6/uL (3.50-5.40) Hemoglobin 8.6 g/dL (12.0-15.5) 8.2 g/dL (12.0-15.5) Hematocrit 24.8 % (36.0-47.0) 24.4 % (36.0-47.0) Mean Corpuscular Volume 106 fL (79-100) 107 fL (79-100) Mean Corpuscular Hemoglobin 37 pg (25-35) 36 pg (25-35) Mean Corpuscular Hemoglobin Concent 35 g/dL (31-37) 34 g/dL (31-37) Red Cell Distribution Width 21.8 % (11.5-14.5) 22.1 % (11.5-14.5) Platelet Count 174 x10^3/uL (140-400) 185 x10^3/uL (140-400) Neutrophils (%) (Auto) 79 % (31-73) 76 % (31-73) Lymphocytes (%) (Auto) 11 % (24-48) 12 % (24-48) Monocytes (%) (Auto) 6 % (0-9) 8 % (0-9) Eosinophils (%) (Auto) 3 % (0-3) 4 % (0-3) Basophils (%) (Auto) 0 % (0-3) 1 % (0-3) Neutrophils # (Auto) 6.5 x10^3/uL (1.8-7.7) 6.2 x10^3/uL (1.8-7.7) Lymphocytes # (Auto) 0.9 x10^3/uL (1.0-4.8) 1.0 x10^3/uL (1.0-4.8) Monocytes # (Auto) 0.5 x10^3/uL (0.0-1.1) 0.6 x10^3/uL (0.0-1.1) Eosinophils # (Auto) 0.3 x10^3/uL (0.0-0.7) 0.3 x10^3/uL (0.0-0.7) Basophils # (Auto) 0.0 x10^3/uL (0.0-0.2) 0.1 x10^3/uL (0.0-0.2) Sodium Level 139 mmol/L (136-145) 139 mmol/L (136-145) Potassium Level 4.2 mmol/L (3.5-5.1) 5.0 mmol/L (3.5-5.1) Chloride Level 109 mmol/L (98-107) 111 mmol/L (98-107) Carbon Dioxide Level 20 mmol/L (21-32) 20 mmol/L (21-32) Anion Gap 10 (6-14) 8 (6-14) Blood Urea Nitrogen 28 mg/dL (7-20) 26 mg/dL (7-20) Creatinine 0.8 mg/dL (0.6-1.0) 0.8 mg/dL (0.6-1.0) Estimated GFR (Cockcroft-Gault) 68.2 68.2 Glucose Level 122 mg/dL (70-99) 111 mg/dL (70-99) Calcium Level 7.9 mg/dL (8.5-10.1) 7.8 mg/dL (8.5-10.1) Phosphorus Level 2.5 mg/dL (2.6-4.7) 2.5 mg/dL (2.6-4.7) Magnesium Level 2.0 mg/dL (1.8-2.4) 1.9 mg/dL (1.8-2.4) Glucose (Fingerstick) 94 mg/dL (70-99) Laboratory Tests Test 06/29/19 06:20 White Blood Count 8.2 x10^3/uL (4.0-11.0) Red Blood Count 2.29 x10^6/uL (3.50-5.40) Hemoglobin 8.2 g/dL (12.0-15.5) Hematocrit 24.4 % (36.0-47.0) Mean Corpuscular Volume 107 fL (79-100) Mean Corpuscular Hemoglobin 36 pg (25-35) Mean Corpuscular Hemoglobin Concent 34 g/dL (31-37) Red Cell Distribution Width 22.1 % (11.5-14.5) Platelet Count 185 x10^3/uL (140-400) Neutrophils (%) (Auto) 76 % (31-73) Lymphocytes (%) (Auto) 12 % (24-48) Monocytes (%) (Auto) 8 % (0-9) Eosinophils (%) (Auto) 4 % (0-3) Basophils (%) (Auto) 1 % (0-3) Neutrophils # (Auto) 6.2 x10^3/uL (1.8-7.7) Lymphocytes # (Auto) 1.0 x10^3/uL (1.0-4.8) Monocytes # (Auto) 0.6 x10^3/uL (0.0-1.1) Eosinophils # (Auto) 0.3 x10^3/uL (0.0-0.7) Basophils # (Auto) 0.1 x10^3/uL (0.0-0.2) Sodium Level 139 mmol/L (136-145) Potassium Level 5.0 mmol/L (3.5-5.1) Chloride Level 111 mmol/L (98-107) Carbon Dioxide Level 20 mmol/L (21-32) Anion Gap 8 (6-14) Blood Urea Nitrogen 26 mg/dL (7-20) Creatinine 0.8 mg/dL (0.6-1.0) Estimated GFR (Cockcroft-Gault) 68.2 Glucose Level 111 mg/dL (70-99) Calcium Level 7.8 mg/dL (8.5-10.1) Phosphorus Level 2.5 mg/dL (2.6-4.7) Magnesium Level 1.9 mg/dL (1.8-2.4) Problem List Problems Medical Problems: (1) RUFINO (acute kidney injury) Status: Acute (2) Dehydration Status: Acute (3) Encephalopathy Status: Acute (4) Small bowel obstruction Status: Acute Assessment/Plan s/p SBR d/c NGT and start clears RACHEL CHING MD Jun 29, 2019 13:39
[2019-06-29] MEDS ORDERED: ENOXAPARIN 40 MG/0.4 ML SYRINGE. SQ SCH (14:00)
[2019-06-29 15:00] VITALS: BP 123/57
[2019-06-29] MEDS: ENOXAPARIN 30 MG/0.3 ML SYRINGE. SQ SCH (15:01)
[2019-06-29 19:00] VITALS: BP 109/39
[2019-06-29] MEDS: LATANOPROST 0.005% OPHTH SOLUTION 2.5ML BOTTLE. OU SCH (21:39)
[2019-06-29] MEDS ORDERED: TOTAL PARENTERAL NUTRITION IV SCH ×10 (22:00)
[2019-06-29] MEDS ORDERED: [UNRECOGNIZED DRUG - OTHER] IV SCH ×10 (22:00)
[2019-06-29] MEDS ORDERED: AMINO ACID IV SCH ×10 (22:00)
[2019-06-29] MEDS ORDERED: DEXTROSE 70% IV SCH ×10 (22:00)
[2019-06-29 23:00] VITALS: BP 100/43
[2019-06-30] VITALS (7 sets, daily range): BP systolic 101–135; BP diastolic 56–63
[2019-06-30 05:46] LABS: ALBUMIN 1.9 g/dL (3.4-5.0); ALBUMIN/GLOBULIN RATIO 0.6 (1.0-1.7); CALCIUM 7.6 mg/dL (8.5-10.1); CREATININE 0.8 mg/dL (0.6-1.0); GFR 68.2; MAGNESIUM 1.7 mg/dL (1.8-2.4); PHOSPHORUS 2.6 mg/dL (2.6-4.7); POTASSIUM 5.1 mmol/L (3.5-5.1); TOTAL BILIRUBIN 0.3 mg/dL (0.2-1.0); TOTAL PROTEIN 5.1 g/dL (6.4-8.2)
[2019-06-30] MEDS: DONEPEZIL HCL 10 MG TABLET. PO SCH (08:32)
[2019-06-30] MEDS: busPIRone 5 MG TABLET. PO SCH ×4 (08:32→20:48)
[2019-06-30] MEDS: POTASSIUM CHLORIDE 10 MEQ TABLET.ER. PO SCH (08:32)
[2019-06-30] MEDS: PANTOPRAZOLE IV PUSH 40 MG VIAL. IVP SCH (08:33)
[2019-06-30] MEDS: ONDANSETRON PF 4 MG/2 ML VIAL. IV PRN (08:33)
--- NOTE | 2019-06-30 10:00 | PDOC ---
SURGICAL PROGRESS NOTE Subjective had some emesis yesterday per pt none today Vital Signs Vital Signs Date Time Temp Pulse Resp B/P (MAP) Pulse Ox O2 Delivery O2 Flow Rate FiO2 06/30/19 07:00 97.9 94 18 111/63 (79) 97 Room Air 97.9 I&O Intake and Output 06/30/19 06:59 Intake Total 430 ml Output Total 0 ml Balance 430 ml Intake Oral 430 ml Gastric Drainage Total 0 ml # Voids 5 # Bowel Movements 1 General: Cooperative, No acute distress Abdomen: Soft, Other (mild distention) Labs Laboratory Tests Test 06/28/19 11:43 06/29/19 06:20 06/30/19 05:10 Glucose (Fingerstick) 94 mg/dL (70-99) White Blood Count 8.2 x10^3/uL (4.0-11.0) Red Blood Count 2.29 x10^6/uL (3.50-5.40) Hemoglobin 8.2 g/dL (12.0-15.5) Hematocrit 24.4 % (36.0-47.0) Mean Corpuscular Volume 107 fL (79-100) Mean Corpuscular Hemoglobin 36 pg (25-35) Mean Corpuscular Hemoglobin Concent 34 g/dL (31-37) Red Cell Distribution Width 22.1 % (11.5-14.5) Platelet Count 185 x10^3/uL (140-400) Neutrophils (%) (Auto) 76 % (31-73) Lymphocytes (%) (Auto) 12 % (24-48) Monocytes (%) (Auto) 8 % (0-9) Eosinophils (%) (Auto) 4 % (0-3) Basophils (%) (Auto) 1 % (0-3) Neutrophils # (Auto) 6.2 x10^3/uL (1.8-7.7) Lymphocytes # (Auto) 1.0 x10^3/uL (1.0-4.8) Monocytes # (Auto) 0.6 x10^3/uL (0.0-1.1) Eosinophils # (Auto) 0.3 x10^3/uL (0.0-0.7) Basophils # (Auto) 0.1 x10^3/uL (0.0-0.2) Sodium Level 139 mmol/L (136-145) 139 mmol/L (136-145) Potassium Level 5.0 mmol/L (3.5-5.1) 5.1 mmol/L (3.5-5.1) Chloride Level 111 mmol/L (98-107) 111 mmol/L (98-107) Carbon Dioxide Level 20 mmol/L (21-32) 18 mmol/L (21-32) Anion Gap 8 (6-14) 10 (6-14) Blood Urea Nitrogen 26 mg/dL (7-20) 25 mg/dL (7-20) Creatinine 0.8 mg/dL (0.6-1.0) 0.8 mg/dL (0.6-1.0) Estimated GFR (Cockcroft-Gault) 68.2 68.2 Glucose Level 111 mg/dL (70-99) 103 mg/dL (70-99) Calcium Level 7.8 mg/dL (8.5-10.1) 7.6 mg/dL (8.5-10.1) Phosphorus Level 2.5 mg/dL (2.6-4.7) 2.6 mg/dL (2.6-4.7) Magnesium Level 1.9 mg/dL (1.8-2.4) 1.7 mg/dL (1.8-2.4) BUN/Creatinine Ratio 31 (6-20) Total Bilirubin 0.3 mg/dL (0.2-1.0) Aspartate Amino Transf (AST/SGOT) 18 U/L (15-37) Alanine Aminotransferase (ALT/SGPT) 14 U/L (14-59) Alkaline Phosphatase 163 U/L (46-116) Total Protein 5.1 g/dL (6.4-8.2) Albumin 1.9 g/dL (3.4-5.0) Albumin/Globulin Ratio 0.6 (1.0-1.7) Laboratory Tests Test 06/30/19 05:10 Sodium Level 139 mmol/L (136-145) Potassium Level 5.1 mmol/L (3.5-5.1) Chloride Level 111 mmol/L (98-107) Carbon Dioxide Level 18 mmol/L (21-32) Anion Gap 10 (6-14) Blood Urea Nitrogen 25 mg/dL (7-20) Creatinine 0.8 mg/dL (0.6-1.0) Estimated GFR (Cockcroft-Gault) 68.2 BUN/Creatinine Ratio 31 (6-20) Glucose Level 103 mg/dL (70-99) Calcium Level 7.6 mg/dL (8.5-10.1) Phosphorus Level 2.6 mg/dL (2.6-4.7) Magnesium Level 1.7 mg/dL (1.8-2.4) Total Bilirubin 0.3 mg/dL (0.2-1.0) Aspartate Amino Transf (AST/SGOT) 18 U/L (15-37) Alanine Aminotransferase (ALT/SGPT) 14 U/L (14-59) Alkaline Phosphatase 163 U/L (46-116) Total Protein 5.1 g/dL (6.4-8.2) Albumin 1.9 g/dL (3.4-5.0) Albumin/Globulin Ratio 0.6 (1.0-1.7) Problem List Problems Medical Problems: (1) RUFINO (acute kidney injury) Status: Acute (2) Dehydration Status: Acute (3) Encephalopathy Status: Acute (4) Small bowel obstruction Status: Acute Assessment/Plan s/p SBR, release SBO clears today, await improved bowel function MOLLY HURT APRN Jun 30, 2019 10:00
--- NOTE | 2019-06-30 10:48 | PDOC ---
PROGRESS NOTES Chief Complaint Chief Complaint impression acute abd pain small bowel obstruction, lactate elevated from this metastatic breast cancer malnutrition acute on chronic renal failure, vasomotor, cognitive decline, dementia Hx, chronic Small-bowel obstruction secondary to a fibrous adhesion. 06/24 kub Grossly unchanged appearance of the abdomen including dilated loops of central small bowel containing dilute enteric contrast. clamp NG increase activity clears today, await improved bowel function Past Medical History Cardiovascular: HTN CENTRAL NERVOUS SYSTEM: Dementia Musculoskeletal: Osteoarthritis Endocrine: Hypothyroidism Past Surgical History Past Surgical History: Colon Resection, Other (port placement) Family History Family History: No Significant Social History Smoke: No ALCOHOL: none 26 min pt exam, chart review, > 50% of time spent with exam, chart review, pt care coordination History of Present Illness History of Present Illness Dr. Mccoy, 06/24 ec-lap, , release small-bowel obstruction, small bowel resection with primary anastomosis. renal funciton better still getting a lot of fluid out of NG pain is minimal, change to TPN as no flatus, and still needs NG Vitals Vitals Vital Signs Date Time Temp Pulse Resp B/P (MAP) Pulse Ox O2 Delivery O2 Flow Rate FiO2 06/30/19 07:00 97.9 94 18 111/63 (79) 97 Room Air 97.9 Physical Exam General: Cooperative, No acute distress Heart: Regular rate, Normal S1, Normal S2 Lungs: Clear Abdomen: Soft, Other (mild distention) Extremities: No clubbing, No cyanosis Skin: No breakdown Labs LABS Laboratory Tests Test 06/30/19 05:10 Sodium Level 139 mmol/L (136-145) Potassium Level 5.1 mmol/L (3.5-5.1) Chloride Level 111 mmol/L (98-107) Carbon Dioxide Level 18 mmol/L (21-32) Anion Gap 10 (6-14) Blood Urea Nitrogen 25 mg/dL (7-20) Creatinine 0.8 mg/dL (0.6-1.0) Estimated GFR (Cockcroft-Gault) 68.2 BUN/Creatinine Ratio 31 (6-20) Glucose Level 103 mg/dL (70-99) Calcium Level 7.6 mg/dL (8.5-10.1) Phosphorus Level 2.6 mg/dL (2.6-4.7) Magnesium Level 1.7 mg/dL (1.8-2.4) Total Bilirubin 0.3 mg/dL (0.2-1.0) Aspartate Amino Transf (AST/SGOT) 18 U/L (15-37) Alanine Aminotransferase (ALT/SGPT) 14 U/L (14-59) Alkaline Phosphatase 163 U/L (46-116) Total Protein 5.1 g/dL (6.4-8.2) Albumin 1.9 g/dL (3.4-5.0) Albumin/Globulin Ratio 0.6 (1.0-1.7) Assessment and Plan Assessmemt and Plan Problems Medical Problems: (1) RUFINO (acute kidney injury) Status: Acute (2) Dehydration Status: Acute (3) Encephalopathy Status: Acute (4) Small bowel obstruction Status: Acute Comment Review of Relevant I have reviewed the following items lola (where applicable) has been applied. Labs Laboratory Tests Test 06/28/19 11:43 06/29/19 06:20 06/30/19 05:10 Glucose (Fingerstick) 94 mg/dL (70-99) White Blood Count 8.2 x10^3/uL (4.0-11.0) Red Blood Count 2.29 x10^6/uL (3.50-5.40) Hemoglobin 8.2 g/dL (12.0-15.5) Hematocrit 24.4 % (36.0-47.0) Mean Corpuscular Volume 107 fL (79-100) Mean Corpuscular Hemoglobin 36 pg (25-35) Mean Corpuscular Hemoglobin Concent 34 g/dL (31-37) Red Cell Distribution Width 22.1 % (11.5-14.5) Platelet Count 185 x10^3/uL (140-400) Neutrophils (%) (Auto) 76 % (31-73) Lymphocytes (%) (Auto) 12 % (24-48) Monocytes (%) (Auto) 8 % (0-9) Eosinophils (%) (Auto) 4 % (0-3) Basophils (%) (Auto) 1 % (0-3) Neutrophils # (Auto) 6.2 x10^3/uL (1.8-7.7) Lymphocytes # (Auto) 1.0 x10^3/uL (1.0-4.8) Monocytes # (Auto) 0.6 x10^3/uL (0.0-1.1) Eosinophils # (Auto) 0.3 x10^3/uL (0.0-0.7) Basophils # (Auto) 0.1 x10^3/uL (0.0-0.2) Sodium Level 139 mmol/L (136-145) 139 mmol/L (136-145) Potassium Level 5.0 mmol/L (3.5-5.1) 5.1 mmol/L (3.5-5.1) Chloride Level 111 mmol/L (98-107) 111 mmol/L (98-107) Carbon Dioxide Level 20 mmol/L (21-32) 18 mmol/L (21-32) Anion Gap 8 (6-14) 10 (6-14) Blood Urea Nitrogen 26 mg/dL (7-20) 25 mg/dL (7-20) Creatinine 0.8 mg/dL (0.6-1.0) 0.8 mg/dL (0.6-1.0) Estimated GFR (Cockcroft-Gault) 68.2 68.2 Glucose Level 111 mg/dL (70-99) 103 mg/dL (70-99) Calcium Level 7.8 mg/dL (8.5-10.1) 7.6 mg/dL (8.5-10.1) Phosphorus Level 2.5 mg/dL (2.6-4.7) 2.6 mg/dL (2.6-4.7) Magnesium Level 1.9 mg/dL (1.8-2.4) 1.7 mg/dL (1.8-2.4) BUN/Creatinine Ratio 31 (6-20) Total Bilirubin 0.3 mg/dL (0.2-1.0) Aspartate Amino Transf (AST/SGOT) 18 U/L (15-37) Alanine Aminotransferase (ALT/SGPT) 14 U/L (14-59) Alkaline Phosphatase 163 U/L (46-116) Total Protein 5.1 g/dL (6.4-8.2) Albumin 1.9 g/dL (3.4-5.0) Albumin/Globulin Ratio 0.6 (1.0-1.7) Laboratory Tests Test 06/30/19 05:10 Sodium Level 139 mmol/L (136-145) Potassium Level 5.1 mmol/L (3.5-5.1) Chloride Level 111 mmol/L (98-107) Carbon Dioxide Level 18 mmol/L (21-32) Anion Gap 10 (6-14) Blood Urea Nitrogen 25 mg/dL (7-20) Creatinine 0.8 mg/dL (0.6-1.0) Estimated GFR (Cockcroft-Gault) 68.2 BUN/Creatinine Ratio 31 (6-20) Glucose Level 103 mg/dL (70-99) Calcium Level 7.6 mg/dL (8.5-10.1) Phosphorus Level 2.6 mg/dL (2.6-4.7) Magnesium Level 1.7 mg/dL (1.8-2.4) Total Bilirubin 0.3 mg/dL (0.2-1.0) Aspartate Amino Transf (AST/SGOT) 18 U/L (15-37) Alanine Aminotransferase (ALT/SGPT) 14 U/L (14-59) Alkaline Phosphatase 163 U/L (46-116) Total Protein 5.1 g/dL (6.4-8.2) Albumin 1.9 g/dL (3.4-5.0) Albumin/Globulin Ratio 0.6 (1.0-1.7) Microbiology 06/20/19 Urine Culture - Final, Complete 06/20/19 Urine Culture Result 1 (YOBANY) - Final, Complete Medications Current Medications Potassium Chloride/Sodium Chloride 1,000 ml @ 125 mls/hr Q8H IV Last administered on 06/20/19at 07:57; Start 06/19/19 at 22:15; Stop 06/20/19 at 08:50; Status DC Throat Lozenges (Chloraseptic) 1 spray PRN Q2HR PRN PO SORE THROAT, 2ND CHOICE; Start 06/19/19 at 22:15 Throat Lozenges (Cepacol Sore Throat Lozenge) 1 juan PRN Q2HRS PRN PO SORE THROAT, 1ST CHOICE; Start 06/19/19 at 22:15 Sodium Chloride 250 ml @ 250 mls/hr 1X ONCE IV Last administered on 06/20/19at 03:24; Start 06/20/19 at 02:45; Stop 06/20/19 at 03:45; Status DC Ondansetron HCl (Zofran) 4 mg PRN Q6HRS PRN IV NAUSEA/VOMITING Last administered on 06/30/19 08:33; Start 06/20/19 at 08:00 Buspirone HCl (Buspar) 5 mg QID PO Last administered on 06/30/19 08:33; Start 06/20/19 at 09:00 Donepezil HCl (Aricept) 10 mg DAILY PO Last administered on 06/30/19 08:33; Start 06/20/19 at 09:00 Latanoprost (Xalatan) 1 drop QHS OU Last administered on 06/29/19at 21:39; Start 06/20/19 at 21:00 Levothyroxine Sodium (Synthroid) 50 mcg DAILYAC PO ; Start 06/20/19 at 09:00; Stop 06/22/19 at 15:39; Status DC Lorazepam (Ativan) 0.5 mg PRN Q4HRS PRN PO ANXIETY / AGITATION; Start 06/20/19 at 08:45 Potassium Chloride (Klor-Con) 10 meq DAILY PO ; Start 06/20/19 at 09:00 Non-Formulary Medication (Melatonin ) 1 tab QHS PO ; Start 06/20/19 at 21:00; Status UNV Pantoprazole Sodium (Protonix) 40 mg DAILYAC PO ; Start 06/20/19 at 09:00; Stop 06/21/19 at 22:23; Status DC Ondansetron HCl (Zofran Odt) 4 mg PRN Q6HRS PRN PO NAUSEA/VOMITING Last administered on 06/22/19at 05:57; Start 06/20/19 at 09:00 Amino Acids/ Glycerin/ Electrolytes 1,000 ml @ 80 mls/hr [id number] IV Last administered on 06/26/19at 10:41; Start 06/20/19 at 09:00; Stop 06/26/19 at 21:59; Status DC Sodium Chloride 1,000 ml @ 1,000 mls/hr 1X ONCE IV Last administered on 06/20/19at 13:50; Start 06/20/19 at 13:30; Stop 06/20/19 at 14:29; Status DC Methylprednisolone Sodium Succinate (SOLU-Medrol 125MG VIAL) 125 mg 1X ONCE IV Last administered on 06/21/19 17:15; Start 06/21/19 at 18:00; Stop 06/21/19 at 18:01; Status DC Methylprednisolone Sodium Succinate (SOLU-Medrol 125MG VIAL) 125 mg 1X ONCE IV Last administered on 06/22/19at 01:38; Start 06/22/19 at 00:00; Stop 06/22/19 at 00:01; Status DC Methylprednisolone Sodium Succinate (SOLU-Medrol 125MG VIAL) 125 mg 1X ONCE IV Last administered on 06/22/19at 05:43; Start 06/22/19 at 06:00; Stop 06/22/19 at 06:01; Status DC Diphenhydramine HCl (Benadryl) 50 mg 1X ONCE IVP Last administered on 06/22/19at 07:46; Start 06/22/19 at 07:00; Stop 06/22/19 at 07:01; Status DC Sodium Chloride 500 ml @ 500 mls/hr 1X ONCE IV Last administered on 06/21/19at 15:38; Start 06/21/19 at 15:30; Stop 06/21/19 at 16:29; Status DC Levofloxacin (Levaquin) 250 mg DAILY06 PO ; Start 06/22/19 at 06:00; Stop 06/21/19 at 22:23; Status DC Levofloxacin/ Dextrose 50 ml @ 50 mls/hr Q24H IV ; Start 06/21/19 at 22:30; Stop 06/21/19 at 22:34; Status DC Pantoprazole Sodium (PROTONIX VIAL for IV PUSH) 40 mg DAILYAC IVP Last administered on 06/30/19at 08:33; Start 06/22/19 at 07:30 Levofloxacin/ Dextrose 50 ml @ 50 mls/hr Q24H IV Last administered on 06/22/19at 05:43; Start 06/22/19 at 06:00; Stop 06/22/19 at 13:57; Status DC Iohexol (Omnipaque 300 Mg/ml) 400 ml 1X ONCE PO ; Start 06/22/19 at 07:45; Stop 06/22/19 at 07:50; Status DC Info (CONTRAST GIVEN -- Rx MONITORING) 1 each PRN DAILY PRN MC SEE COMMENTS; Start 06/22/19 at 08:00; Stop 06/24/19 at 07:59; Status DC Sodium Chloride 1,000 ml @ 100 mls/hr 1X ONCE IV Last administered on 06/22/19at 11:40; Start 06/22/19 at 11:15; Stop 06/22/19 at 21:14; Status DC Levothyroxine Sodium 25 mcg/ Sodium Chloride 5 ml @ 100 mls/hr Q72H IVP Last administered on 06/29/19at 06:24; Start 06/26/19 at 06:00 Sodium Chloride 1,000 ml @ 100 mls/hr 1X ONCE IV Last administered on 06/23/19at 11:59; Start 06/23/19 at 11:45; Stop 06/23/19 at 21:44; Status DC Propofol 20 ml @ As Directed STK-MED ONCE IV ; Start 06/24/19 at 09:27; Stop 06/24/19 at 09:28; Status DC Lidocaine HCl (Lidocaine Pf 2% Vial) 5 ml STK-MED ONCE .ROUTE ; Start 06/24/19 at 09:27; Stop 06/24/19 at 09:28; Status DC Rocuronium Hood (Zemuron) 50 mg STK-MED ONCE .ROUTE ; Start 06/24/19 at 09:28; Stop 06/24/19 at 09:28; Status DC Fentanyl Citrate (Fentanyl 2ml Vial) 100 mcg STK-MED ONCE .ROUTE ; Start 06/24/19 at 09:28; Stop 06/24/19 at 09:28; Status DC Cefazolin Sodium/ Dextrose 50 ml @ 100 mls/hr 1X PREOP PRN IV protocol Last administered on 06/24/19at 11:37; Start 06/24/19 at 06:00; Stop 06/24/19 at 15:00; Status DC Fentanyl Citrate (Fentanyl 2ml Vial) 25 mcg PRN Q5MIN PRN IV MILD PAIN 1-3 Last administered on 06/24/19at 13:48; Start 06/24/19 at 10:00; Stop 06/25/19 at 09:59; Status DC Fentanyl Citrate (Fentanyl 2ml Vial) 50 mcg PRN Q5MIN PRN IV MODERATE TO SEVERE PAIN Last administered on 06/24/19at 14:08; Start 06/24/19 at 10:00; Stop 06/25/19 at 09:59; Status DC Morphine Sulfate (Morphine Sulfate) 1 mg PRN Q10MIN PRN IV SEVERE PAIN 7-10; Start 06/24/19 at 10:00; Stop 06/25/19 at 09:59; Status DC Ringer's Solution 1,000 ml @ 30 mls/hr Q24H IV ; Start 06/24/19 at 10:00; Stop 06/24/19 at 10:14; Status DC Hydromorphone HCl (Dilaudid) 0.5 mg PRN Q10MIN PRN IV SEV PAIN, Second choice; Start 06/24/19 at 10:00; Stop 06/25/19 at 09:59; Status DC Prochlorperazine Edisylate (Compazine) 5 mg PACU PRN PRN IV NAUSEA, MRX1 Last administered on 06/24/19at 13:27; Start 06/24/19 at 10:00; Stop 06/25/19 at 09:59; Status DC Sodium Chloride 1,000 ml @ 40 mls/hr Q24H IV Last administered on 06/24/19at 14:16; Start 06/24/19 at 10:15; Stop 06/27/19 at 10:52; Status DC Bupivacaine HCl/ Epinephrine Bitart (Sensorcain-Mpf Epi 0.5%-1:[id number]) 30 ml 1X ONCE INJ Last administered on 06/24/19at 12:53; Start 06/24/19 at 10:30; Stop 06/24/19 at 10:31; Status DC Desflurane (Suprane) 60 ml STK-MED ONCE IH ; Start 06/24/19 at 11:14; Stop 06/24/19 at 11:15; Status DC Ondansetron HCl (Zofran) 4 mg STK-MED ONCE .ROUTE ; Start 06/24/19 at 11:16; Stop 06/24/19 at 11:16; Status DC Dexamethasone Sodium Phosphate (Decadron) 4 mg STK-MED ONCE .ROUTE ; Start 06/24/19 at 11:17; Stop 06/24/19 at 11:17; Status DC Phenylephrine HCl (PHENYLEPHRINE in 0.9% NACL PF) 1 mg STK-MED ONCE IV ; Start 06/24/19 at 11:21; Stop 06/24/19 at 11:21; Status DC Sodium Chloride 1,000 ml @ 100 mls/hr 1X ONCE IV ; Start 06/24/19 at 11:30; Stop 06/24/19 at 21:29; Status DC Ephedrine Sulfate (ePHEDrine PF IN SALINE SYRINGE) 50 mg STK-MED ONCE IV ; Start 06/24/19 at 11:26; Stop 06/24/19 at 11:26; Status DC Ondansetron HCl (Zofran) 4 mg STK-MED ONCE .ROUTE ; Start 06/24/19 at 11:38; Stop 06/24/19 at 11:38; Status DC Neostigmine Methylsulfate (Neostigmine Methylsulfate) 5 mg STK-MED ONCE .ROUTE ; Start 06/24/19 at 11:39; Stop 06/24/19 at 11:39; Status DC Glycopyrrolate (Robinul) 1 mg STK-MED ONCE .ROUTE ; Start 06/24/19 at 11:39; Stop 06/24/19 at 11:39; Status DC Prochlorperazine Edisylate (Compazine) 10 mg STK-MED ONCE .ROUTE ; Start 06/24 at 12:59; Stop 06/24/19 at 13:00; Status DC Fentanyl Citrate (Fentanyl 2ml Vial) 100 mcg STK-MED ONCE .ROUTE ; Start at 13:08; Stop 06/24/19 at 13:08; Status DC Sodium Chloride (Normal Saline Flush) 3 ml QSHIFT PRN IV AFTER MEDS AND BLOOD D RAWS; Start 06/24/19 at 13:15 Naloxone HCl (Narcan) 0.4 mg PRN Q2MIN PRN IV SEE INSTRUCTIONS; Start 06/24/19 at 13:15 Sodium Chloride 1,000 ml @ 25 mls/hr Q24H IV ; Start 06/24/19 at 13:14; Stop 06/25/19 at 11:05; Status DC Morphine Sulfate (Morphine Sulfate) 4 mg PRN Q4HRS PRN IV MODERATE TO SEVERE PAIN Last administered on 06/24/19at 20:50; Start 06/24/19 at 13:15; Stop at 13:57; Status DC Sodium Chloride 1,000 ml @ 100 mls/hr 1X ONCE IV Last administered on 06/25/19at 11:04; Start 06/25/19 at 10:30; Stop 06/25/19 at 20:29; Status DC Info (Tpn Per Pharmacy) 1 each PRN DAILY PRN MC SEE COMMENTS Last administered on 06/29/19at 13:05; Start 06/26/19 at 11:15 Sodium Chloride 1,000 ml @ 100 mls/hr 1X ONCE IV Last administered on 06/26/19at 12:51; Start 06/26/19 at 11:15; Stop 06/26/19 at 21:14; Status DC Enoxaparin Sodium (Lovenox 30mg Syringe) 30 mg Q24H SQ Last administered on 06/28/19at 14:16; Start 06/26/19 at 14:00; Stop 06/28/19 at 14:32; Status DC Sodium Chloride 90 meq/Potassium Chloride 50 meq/ Potassium Phosphate 13.6 mmol/Magnesium Sulfate 10 meq/ Calcium Gluconate 10 meq/ Multivitamins 10 ml/Chromium/ Copper/Manganese/ Seleni/Zn 1 ml/ Total Parenteral Nutrition/Amino Acids/Dextrose/ Fat Emulsion Intravenous 1,200 ml @ 50 mls/hr TPN CONT IV Last administered on 06/26/19at 22:42; Start 06/26/19 at 22:00; Stop 06/27/19 at 21:59; Status DC Potassium Phosphate 13.6 mmol/Dextrose 104.5333 ml @ 52.267 m... 1X ONCE IV Last administered on 06/27/19at 14:23; Start 06/27/19 at 13:00; Stop 06/27/19 at 14:59; Status DC Sodium Chloride 90 meq/Potassium Chloride 50 meq/ Potassium Phosphate 17 mmol/ Magnesium Sulfate 10 meq/Calcium Gluconate 10 meq/ Multivitamins 10 ml/Chromium/ Copper/Manganese/ Seleni/Zn 1 ml/ Total Parenteral Nutrition/Amino Acids/Dextrose/ Fat Emulsion Intravenous 1,200 ml @ 50 mls/hr TPN CONT IV Last administered on 06/27/19at 22:00; Start 06/27/19 at 22:00; Stop 06/28/19 at 21:59; Status DC Morphine Sulfate (Morphine Sulfate) 3 mg PRN Q4HRS PRN IV MODERATE TO SEVERE P AIN; Start 06/28/19 at 14:00 Morphine Sulfate (Morphine Sulfate) 2 mg PRN Q2HR PRN IV MILD PAIN 1-3 Last administered on 06/29/19at 08:44; Start 06/28/19 at 14:00 Morphine Sulfate (Morphine Sulfate) 4 mg PRN Q4HRS PRN IV MODERATE TO SEVERE PAIN; Start 06/28/19 at 14:15 Sodium Chloride 80 meq/Sodium Phosphate 3 mmol/ Potassium Chloride 50 meq/ Potassium Phosphate 17 mmol/ Magnesium Sulfate 10 meq/ Multivitamins 10 ml/Chromium/ Copper/Manganese/ Seleni/Zn 1 ml/ Total Parenteral Nutrition/Amino Acids/Dextrose/ Fat Emulsion Intravenous 1,200 ml @ 50 mls/hr TPN CONT IV Last administered on 06/28/19at 22:14; Start 06/28/19 at 22:00; Stop 06/29/19 at 21:59; Status DC Enoxaparin Sodium (Lovenox 40mg Syringe) 40 mg Q24H SQ ; Start 06/29/19 at 14:00; Status Cancel Enoxaparin Sodium (Lovenox 30mg Syringe) 30 mg Q24H SQ Last administered on 06/29/19at 15:01; Start 06/29/19 at 14:00 Sodium Chloride 60 meq/Sodium Phosphate 13 mmol/ Potassium Chloride 40 meq/ Potassium Phosphate 17 mmol/ Magnesium Sulfate 10 meq/ Multivitamins 10 ml/Chromium/ Copper/Manganese/ Seleni/Zn 1 ml/ Total Parenteral Nutrition/Amino Acids/Dextrose/ Fat Emulsion Intravenous 1,200 ml @ 50 mls/hr TPN CONT IV Last administered on 06/29/19at 21:39; Start 06/29/19 at 22:00; Stop 06/30/19 at 21:59 Active Scripts Active Reported Aspirin 81 Mg Tab.chew 1 Tab PO DAILY Ultram (Tramadol Hcl) 50 Mg Tablet 50 Mg PO Q4HRS PRN Potassium Chloride 10 Meq Tab.sr.24h 10 Meq PO DAILY Namenda (Memantine Hcl) 10 Mg Tablet 10 Mg PO BID Zofran (Ondansetron Hcl) 4 Mg Tablet 1 Tab PO PRN Q6-8HRS Imodium A-D (Loperamide Hcl) 1 Mg/7.5 Ml Liquid 1 Mg PO PRN PRN Omeprazole 20 Mg Tablet.dr 1 Tab PO DAILY Acetaminophen 325 Mg Tablet 325 Mg PO Q4HRS Donepezil Hcl 10 Mg Tablet 1 Tab PO DAILY Xeloda (Capecitabine) 500 Mg Tablet 2,000 Mg PO Q12HR Buspirone Hcl 5 Mg Tablet 1 Tab PO QID Melatonin 3 Mg Tablet 1 Tab PO QHS Levothyroxine Sodium 50 Mcg Tablet 50 Mcg PO DAILYAC Cerefolin Nac Caplet (Lmfol Ca/Acetyl/Mb12/Algal Oil) 1 Each Tablet 1 Each PO DAILY Xalatan (Latanoprost) 2.5 Ml Drops 1 Drop EACHEYE QHS Magnesium Oxide 400 Mg Tablet 1 Tab PO TID Pepcid (Famotidine) 20 Mg Tablet 20 Mg PO DAILY Ativan (Lorazepam) 0.5 Mg Tablet 0.5 Mg PO Q4HRS PRN Vitals/I & O Vital Sign - Last 24 Hours 06/29/19 06/29/19 06/29/19 06/29/19 11:00 15:00 19:00 20:00 Temp 97.9 97.5 97.8 97.9 97.5 97.8 Pulse 84 54 72 Resp 16 14 14 B/P (MAP) 111/62 (78) 123/57 (79) 109/39 (62) Pulse Ox 99 95 94 O2 Delivery Room Air Room Air Room Air Room Air 06/29/19 06/30/19 06/30/19 23:00 03:00 07:00 Temp 98.9 98.6 97.9 98.9 98.6 97.9 Pulse 81 89 94 Resp 14 18 18 B/P (MAP) 100/43 (62) 110/56 (74) 111/63 (79) Pulse Ox 94 94 97 O2 Delivery Room Air Room Air Room Air Intake and Output 06/29/19 06/29/19 06/30/19 14:59 22:59 06:59 Intake Total 430 ml Output Total 0 ml Balance 0 ml 430 ml Nutrition Consultation Dietary Evaluation: Recommendations by RD: PPN/TPN Comments: continue with TPN until able to advance diet REC goal diet: regular , mech soft, thins due to usual diet at home. Expected Outcomes/Goals: to meet > 75% est nutr needs via po intake- not met, goal ongoing Malnutrition Findings: Muscle Mass (Severe): Severe Depletion Food and Nutrition Intake (Sev: <50% est energy req 5days Body Fat Depletion (Non Severe: Mod to Severe Weight Status: Underweight MEHDI WARD MD Jun 30, 2019 10:48
[2019-06-30] MEDS: TPN PER PHARMACY MC PRN (12:33)
--- NOTE | 2019-06-30 12:33 | NUR ---
Pharmacy TPN Dosing Note S: ROSA SCHREIBER is a 84 year old F Currently receiving Central Continuous TPN started 06/26/19 B:Pertinent PMH: SBO S/P RESECTION 06/24 LABS: Sodium: 139 Potassium: 5.1 Chloride: 111 Calcium: 7.6 Corrected Calcium: 9.28 Magnesium: 1.7 CO2: 18 SCr: 0.8 Glucose: 103 Albumin: 1.9 AST: 18 ALT: 14 TPN FORMULA: TPN TYPE: Central Continuous AMINO ACIDS: 60 gm DEXTROSE: 195 gm LIPIDS: 20 gm SODIUM CHLORIDE: 60 mEq SODIUM ACETATE: - mEq SODIUM PHOSPHATE: 13 mmol POTASSIUM CHLORIDE: 20 mEq POTASSIUM ACETATE: - mEq POTASSIUM PHOSPHATE: 17 mmol MAGNESIUM: 10 mEq CALCIUM: 0 mEq INSULIN: - units MULTIPLE VITAMIN: 10 ml TRACE ELEMENTS: MTE 5 1ML ml(s) TPN PLAN: -decrease KCl to 20meq per bag -bolus Magnesium 2gm -Continue same TPN rate/fluid/macros as per condenser operator recommendation -BMP, mag, phos tomorrow per protocol. R: Change TPN as above Will monitor electrolytes, glucose, and tolerance to TPN. JENNIFER DURANT [facility], 06/30/19 [id number]
[2019-06-30] MEDS ORDERED: MAGNESIUM SULFATE 2GM 50 ML IV ONE (13:00)
--- NOTE | 2019-06-30 13:04 | NUR ---
SS following up with discharge planning. SS phoned and faxed clinical updates to [facility] and [facility], ; fax [phone]. SS will continue to follow up with discharge planning.
[2019-06-30] MEDS: ENOXAPARIN 30 MG/0.3 ML SYRINGE. SQ SCH (13:46)
[2019-06-30] MEDS: LATANOPROST 0.005% OPHTH SOLUTION 2.5ML BOTTLE. OU SCH (20:49)
[2019-06-30] MEDS ORDERED: AMINO ACID IV SCH ×10 (22:00)
[2019-06-30] MEDS ORDERED: DEXTROSE 70% IV SCH ×10 (22:00)
[2019-06-30] MEDS ORDERED: [UNRECOGNIZED DRUG - OTHER] IV SCH ×10 (22:00)
[2019-06-30] MEDS ORDERED: TOTAL PARENTERAL NUTRITION IV SCH ×10 (22:00)
[2019-07-01 03:21] VITALS: BP 102/51
[2019-07-01] MEDS: PANTOPRAZOLE IV PUSH 40 MG VIAL. IVP SCH ×2 (05:11→05:45)
[2019-07-01 05:49] LABS: CALCIUM 7.4 mg/dL (8.5-10.1); CREATININE 0.8 mg/dL (0.6-1.0); GFR 68.2; PHOSPHORUS 3.1 mg/dL (2.6-4.7); POTASSIUM 4.5 mmol/L (3.5-5.1)
[2019-07-01 07:00] VITALS: BP 121/55
--- NOTE | 2019-07-01 08:20 | PDOC ---
PROGRESS NOTES Chief Complaint Chief Complaint impression acute abd pain, IMPROVING SLOWLY, JOSE A LIQUIDS small bowel obstruction, lactate elevated from this metastatic breast cancer malnutrition acute on chronic renal failure, vasomotor, cognitive decline, dementia Hx, chronic Small-bowel obstruction secondary to a fibrous adhesion. 06/24 kub Grossly unchanged appearance of the abdomen including dilated loops of central small bowel containing dilute enteric contrast. increase activity SOFT DIET Past Medical History Cardiovascular: HTN CENTRAL NERVOUS SYSTEM: Dementia Musculoskeletal: Osteoarthritis Endocrine: Hypothyroidism Past Surgical History Past Surgical History: Colon Resection, Other (port placement) Family History Family History: No Significant Social History Smoke: No ALCOHOL: none 29 min pt exam, chart review, > 50% of time spent with exam, chart review, pt care coordination History of Present Illness History of Present Illness Dr. Mccoy, 06/24 ec-lap, , release small-bowel obstruction, small bowel resection with primary anastomosis. renal funciton better still getting a lot of fluid out of NG pain is minimal, change to TPN as no flatus, and still needs NG Vitals Vitals Vital Signs Date Time Temp Pulse Resp B/P (MAP) Pulse Ox O2 Delivery O2 Flow Rate FiO2 07/01/19 07:20 Nasal Cannula 2.0 07/01/19 03:21 98.3 76 18 102/51 (68) 100 98.3 Physical Exam General: Alert, Cooperative, No acute distress Heart: Regular rate, Normal S1, Normal S2 Lungs: Clear Abdomen: Normal bowel sounds, Soft, No hepatosplenomegaly, Other (mild distention) Extremities: No clubbing, No cyanosis Skin: No breakdown Labs LABS Laboratory Tests Test 07/01/19 05:15 Sodium Level 138 mmol/L (136-145) Potassium Level 4.5 mmol/L (3.5-5.1) Chloride Level 111 mmol/L (98-107) Carbon Dioxide Level 16 mmol/L (21-32) Anion Gap 11 (6-14) Blood Urea Nitrogen 21 mg/dL (7-20) Creatinine 0.8 mg/dL (0.6-1.0) Estimated GFR (Cockcroft-Gault) 68.2 Glucose Level 99 mg/dL (70-99) Calcium Level 7.4 mg/dL (8.5-10.1) Phosphorus Level 3.1 mg/dL (2.6-4.7) Magnesium Level 2.0 mg/dL (1.8-2.4) Assessment and Plan Assessmemt and Plan Problems Medical Problems: (1) RUFINO (acute kidney injury) Status: Acute (2) Dehydration Status: Acute (3) Encephalopathy Status: Acute (4) Small bowel obstruction Status: Acute Comment Review of Relevant I have reviewed the following items lola (where applicable) has been applied. Labs Laboratory Tests Test 06/30/19 05:10 07/01/19 05:15 Sodium Level 139 mmol/L (136-145) 138 mmol/L (136-145) Potassium Level 5.1 mmol/L (3.5-5.1) 4.5 mmol/L (3.5-5.1) Chloride Level 111 mmol/L (98-107) 111 mmol/L (98-107) Carbon Dioxide Level 18 mmol/L (21-32) 16 mmol/L (21-32) Anion Gap 10 (6-14) 11 (6-14) Blood Urea Nitrogen 25 mg/dL (7-20) 21 mg/dL (7-20) Creatinine 0.8 mg/dL (0.6-1.0) 0.8 mg/dL (0.6-1.0) Estimated GFR (Cockcroft-Gault) 68.2 68.2 BUN/Creatinine Ratio 31 (6-20) Glucose Level 103 mg/dL (70-99) 99 mg/dL (70-99) Calcium Level 7.6 mg/dL (8.5-10.1) 7.4 mg/dL (8.5-10.1) Phosphorus Level 2.6 mg/dL (2.6-4.7) 3.1 mg/dL (2.6-4.7) Magnesium Level 1.7 mg/dL (1.8-2.4) 2.0 mg/dL (1.8-2.4) Total Bilirubin 0.3 mg/dL (0.2-1.0) Aspartate Amino Transf (AST/SGOT) 18 U/L (15-37) Alanine Aminotransferase (ALT/SGPT) 14 U/L (14-59) Alkaline Phosphatase 163 U/L (46-116) Total Protein 5.1 g/dL (6.4-8.2) Albumin 1.9 g/dL (3.4-5.0) Albumin/Globulin Ratio 0.6 (1.0-1.7) Laboratory Tests Test 07/01/19 05:15 Sodium Level 138 mmol/L (136-145) Potassium Level 4.5 mmol/L (3.5-5.1) Chloride Level 111 mmol/L (98-107) Carbon Dioxide Level 16 mmol/L (21-32) Anion Gap 11 (6-14) Blood Urea Nitrogen 21 mg/dL (7-20) Creatinine 0.8 mg/dL (0.6-1.0) Estimated GFR (Cockcroft-Gault) 68.2 Glucose Level 99 mg/dL (70-99) Calcium Level 7.4 mg/dL (8.5-10.1) Phosphorus Level 3.1 mg/dL (2.6-4.7) Magnesium Level 2.0 mg/dL (1.8-2.4) Microbiology 06/20/19 Urine Culture - Final, Complete 06/20/19 Urine Culture Result 1 (YOBANY) - Final, Complete Medications Current Medications Potassium Chloride/Sodium Chloride 1,000 ml @ 125 mls/hr Q8H IV Last administered on 06/20/19at 07:57; Start 06/19/19 at 22:15; Stop 06/20/19 at 08:50; Status DC Throat Lozenges (Chloraseptic) 1 spray PRN Q2HR PRN PO SORE THROAT, 2ND CHOICE; Start 06/19/19 at 22:15 Throat Lozenges (Cepacol Sore Throat Lozenge) 1 juan PRN Q2HRS PRN PO SORE THROAT, 1ST CHOICE; Start 06/19/19 at 22:15 Sodium Chloride 250 ml @ 250 mls/hr 1X ONCE IV Last administered on 06/20/19at 03:24; Start 06/20/19 at 02:45; Stop 06/20/19 at 03:45; Status DC Ondansetron HCl (Zofran) 4 mg PRN Q6HRS PRN IV NAUSEA/VOMITING Last administered on 06/30/19at 08:33; Start 06/20/19 at 08:00 Buspirone HCl (Buspar) 5 mg QID PO Last administered on 06/30/19at 20:49; Start 06/20/19 at 09:00 Donepezil HCl (Aricept) 10 mg DAILY PO Last administered on 06/30/19at 08:33; Start 06/20/19 at 09:00 Latanoprost (Xalatan) 1 drop QHS OU Last administered on 06/30/19at 20:49; Start 06/20/19 at 21:00 Levothyroxine Sodium (Synthroid) 50 mcg DAILYAC PO ; Start 06/20/19 at 09:00; Stop 06/22/19 at 15:39; Status DC Lorazepam (Ativan) 0.5 mg PRN Q4HRS PRN PO ANXIETY / AGITATION; Start 06/20/19 at 08:45 Potassium Chloride (Klor-Con) 10 meq DAILY PO ; Start 06/20/19 at 09:00 Non-Formulary Medication (Melatonin ) 1 tab QHS PO ; Start 06/20/19 at 21:00; Status UNV Pantoprazole Sodium (Protonix) 40 mg DAILYAC PO ; Start 06/20/19 at 09:00; Stop 06/21/19 at 22:23; Status DC Ondansetron HCl (Zofran Odt) 4 mg PRN Q6HRS PRN PO NAUSEA/VOMITING Last administered on 06/22/19 05:57; Start 06/20/19 at 09:00 Amino Acids/ Glycerin/ Electrolytes 1,000 ml @ 80 mls/hr [id number] IV Last administered on 06/26/19at 10:41; Start 06/20/19 at 09:00; Stop 06/26/19 at 21:59; Status DC Sodium Chloride 1,000 ml @ 1,000 mls/hr 1X ONCE IV Last administered on 06/20/19at 13:50; Start 06/20/19 at 13:30; Stop 06/20/19 at 14:29; Status DC Methylprednisolone Sodium Succinate (SOLU-Medrol 125MG VIAL) 125 mg 1X ONCE IV Last administered on 06/21/19at 17:15; Start 06/21/19 at 18:00; Stop 06/21/19 at 18:01; Status DC Methylprednisolone Sodium Succinate (SOLU-Medrol 125MG VIAL) 125 mg 1X ONCE IV Last administered on 06/22/19at 01:38; Start 06/22/19 at 00:00; Stop 06/22/19 at 00:01; Status DC Methylprednisolone Sodium Succinate (SOLU-Medrol 125MG VIAL) 125 mg 1X ONCE IV Last administered on 06/22/19at 05:43; Start 06/22/19 at 06:00; Stop 06/22/19 at 06:01; Status DC Diphenhydramine HCl (Benadryl) 50 mg 1X ONCE IVP Last administered on 06/09 02/25at 07:46; Start 06/22/19 at 07:00; Stop 06/22/19 at 07:01; Status DC Sodium Chloride 500 ml @ 500 mls/hr 1X ONCE IV Last administered on 06/21/19at 15:38; Start 06/21/19 at 15:30; Stop 06/21/19 at 16:29; Status DC Levofloxacin (Levaquin) 250 mg DAILY06 PO ; Start 06/22/19 at 06:00; Stop 06/21/19 at 22:23; Status DC Levofloxacin/ Dextrose 50 ml @ 50 mls/hr Q24H IV ; Start 06/21/19 at 22:30; Stop 06/21/19 at 22:34; Status DC Pantoprazole Sodium (PROTONIX VIAL for IV PUSH) 40 mg DAILYAC IVP Last adm inistered on 07/01/19at 05:45; Start 06/22/19 at 07:30 Levofloxacin/ Dextrose 50 ml @ 50 mls/hr Q24H IV Last administered on 06/22/19at 05:43; Start 06/22/19 at 06:00; Stop 06/22/19 at 13:57; Status DC Iohexol (Omnipaque 300 Mg/ml) 400 ml 1X ONCE PO ; Start 06/22/19 at 07:45; Stop 06/22/19 at 07:50; Status DC Info (CONTRAST GIVEN -- Rx MONITORING) 1 each PRN DAILY PRN MC SEE COMMENTS; Start 06/22/19 at 08:00; Stop 06/24/19 at 07:59; Status DC Sodium Chloride 1,000 ml @ 100 mls/hr 1X ONCE IV Last administered on 06/22/19at 11:40; Start 06/22/19 at 11:15; Stop 06/22/19 at 21:14; Status DC Levothyroxine Sodium 25 mcg/ Sodium Chloride 5 ml @ 100 mls/hr Q72H IVP Last administered on 06/29/19at 06:24; Start 06/26/19 at 06:00 Sodium Chloride 1,000 ml @ 100 mls/hr 1X ONCE IV Last administered on 06/23/19at 11:59; Start 06/23/19 at 11:45; Stop 06/23/19 at 21:44; Status DC Propofol 20 ml @ As Directed STK-MED ONCE IV ; Start 06/24/19 at 09:27; Stop 06/24/19 at 09:28; Status DC Lidocaine HCl (Lidocaine Pf 2% Vial) 5 ml STK-MED ONCE .ROUTE ; Start 06/24/19 at 09:27; Stop 06/24/19 at 09:28; Status DC Rocuronium [place] (Zemuron) 50 mg STK-MED ONCE .ROUTE ; Start 06/24/19 at 09:28; Stop 06/24/19 at 09:28; Status DC Fentanyl Citrate (Fentanyl 2ml Vial) 100 mcg STK-MED ONCE .ROUTE ; Start 06/24/19 at 09:28; Stop 06/24/19 at 09:28; Status DC Cefazolin Sodium/ Dextrose 50 ml @ 100 mls/hr 1X PREOP PRN IV protocol Last administered on 06/24/19at 11:37; Start 06/24/19 at 06:00; Stop 06/24/19 at 15:00; Status DC Fentanyl Citrate (Fentanyl 2ml Vial) 25 mcg PRN Q5MIN PRN IV MILD PAIN 1-3 Last administered on 06/24/19at 13:48; Start 06/24/19 at 10:00; Stop 06/25/19 at 09:59; Status DC Fentanyl Citrate (Fentanyl 2ml Vial) 50 mcg PRN Q5MIN PRN IV MODERATE TO SEVERE PAIN Last administered on 06/24/19at 14:08; Start 06/24/19 at 10:00; Stop 06/25/19 at 09:59; Status DC Morphine Sulfate (Morphine Sulfate) 1 mg PRN Q10MIN PRN IV SEVERE PAIN 7-10; Start 06/24/19 at 10:00; Stop 06/25/19 at 09:59; Status DC Ringer's Solution 1,000 ml @ 30 mls/hr Q24H IV ; Start 06/24/19 at 10:00; Stop 06/24/19 at 10:14; Status DC Hydromorphone HCl (Dilaudid) 0.5 mg PRN Q10MIN PRN IV SEV PAIN, Second choice; Start 06/24/19 at 10:00; Stop 06/25/19 at 09:59; Status DC Prochlorperazine Edisylate (Compazine) 5 mg PACU PRN PRN IV NAUSEA, MRX1 Last administered on 06/24/19at 13:27; Start 06/24/19 at 10:00; Stop 06/25/19 at 09:59; Status DC Sodium Chloride 1,000 ml @ 40 mls/hr Q24H IV Last administered on 06/24/19at 14:16; Start 06/24/19 at 10:15; Stop 06/27/19 at 10:52; Status DC Bupivacaine HCl/ Epinephrine Bitart (Sensorcain-Mpf Epi 0.5%-[id number]) 30 ml 1X ONCE INJ Last administered on 06/24/19at 12:53; Start 06/24/19 at 10:30; Stop 06/24/19 at 10:31; Status DC Desflurane (Suprane) 60 ml STK-MED ONCE IH ; Start 06/24/19 at 11:14; Stop 06/24/19 at 11:15; Status DC Ondansetron HCl (Zofran) 4 mg STK-MED ONCE .ROUTE ; Start 06/24/19 at 11:16; Stop 06/24/19 at 11:16; Status DC Dexamethasone Sodium Phosphate (Decadron) 4 mg STK-MED ONCE .ROUTE ; Start 06/24/19 at 11:17; Stop 06/24/19 at 11:17; Status DC Phenylephrine HCl (PHENYLEPHRINE in 0.9% NACL PF) 1 mg STK-MED ONCE IV ; Start 06/24/19 at 11:21; Stop 06/24/19 at 11:21; Status DC Sodium Chloride 1,000 ml @ 100 mls/hr 1X ONCE IV ; Start 06/24/19 at 11:30; Stop 06/24/19 at 21:29; Status DC Ephedrine Sulfate (ePHEDrine PF IN SALINE SYRINGE) 50 mg STK-MED ONCE IV ; Star t 06/24/19 at 11:26; Stop 06/24/19 at 11:26; Status DC Ondansetron HCl (Zofran) 4 mg STK-MED ONCE .ROUTE ; Start 06/24/19 at 11:38; Stop 06/24/19 at 11:38; Status DC Neostigmine Methylsulfate (Neostigmine Methylsulfate) 5 mg STK-MED ONCE .ROUTE ; Start 06/24/19 at 11:39; Stop 06/24/19 at 11:39; Status DC Glycopyrrolate (Robinul) 1 mg STK-MED ONCE .ROUTE ; Start 06/24/19 at 11:39; Stop 06/24/19 at 11:39; Status DC Prochlorperazine Edisylate (Compazine) 10 mg STK-MED ONCE .ROUTE ; Start 06/24/19 at 12:59; Stop 06/24/19 at 13:00; Status DC Fentanyl Citrate (Fentanyl 2ml Vial) 100 mcg STK-MED ONCE .ROUTE ; Start 06/24/19 at 13:08; Stop 06/24/19 at 13:08; Status DC Sodium Chloride (Normal Saline Flush) 3 ml QSHIFT PRN IV AFTER MEDS AND BLOOD DRAWS; Start 06/24/19 at 13:15 Naloxone HCl (Narcan) 0.4 mg PRN Q2MIN PRN IV SEE INSTRUCTIONS; Start 06/24/19 at 13:15 Sodium Chloride 1,000 ml @ 25 mls/hr Q24H IV ; Start 06/24/19 at 13:14; Stop 06/25/19 at 11:05; Status DC Morphine Sulfate (Morphine Sulfate) 4 mg PRN Q4HRS PRN IV MODERATE TO SEVERE PAIN Last administered on 06/24/19at 20:50; Start 06/24/19 at 13:15; Stop 06/28/19 at 13:57; Status DC Sodium Chloride 1,000 ml @ 100 mls/hr 1X ONCE IV Last administered on 06/25/19at 11:04; Start 06/25/19 at 10:30; Stop 06/25/19 at 20:29; Status DC Info (Tpn Per Pharmacy) 1 each PRN DAILY PRN MC SEE COMMENTS Last administered on 06/30/19at 12:33; Start 06/26/19 at 11:15 Sodium Chloride 1,000 ml @ 100 mls/hr 1X ONCE IV Last administered on 06/26/19at 12:51; Start 06/26/19 at 11:15; Stop 06/26/19 at 21:14; Status DC Enoxaparin Sodium (Lovenox 30mg Syringe) 30 mg Q24H SQ Last administered on at 14:16; Start 06/26/19 at 14:00; Stop 06/28/19 at 14:32; Status DC Sodium Chloride 90 meq/Potassium Chloride 50 meq/ Potassium Phosphate 13.6 mmol/Magnesium Sulfate 10 meq/ Calcium Gluconate 10 meq/ Multivitamins 10 ml/Chromium/ Copper/Manganese/ Seleni/Zn 1 ml/ Total Parenteral Nutrition/Amino Acids/Dextrose/ Fat Emulsion Intravenous 1,200 ml @ 50 mls/hr TPN CONT IV [place] st administered on 06/26/19at 22:42; Start 06/26/19 at 22:00; Stop 06/27/19 at 21:59; Status DC Potassium Phosphate 13.6 mmol/Dextrose 104.5333 ml @ 52.267 m... 1X ONCE IV Last administered on 06/27/19at 14:23; Start 06/27/19 at 13:00; Stop 06/27/19 at 14:59; Status DC Sodium Chloride 90 meq/Potassium Chloride 50 meq/ Potassium Phosphate 17 mmol/ Magnesium Sulfate 10 meq/Calcium Gluconate 10 meq/ Multivitamins 10 ml/Chromium/ Copper/Manganese/ Seleni/Zn 1 ml/ Total Parenteral Nutrition/Amino Acids/Dextro se/ Fat Emulsion Intravenous 1,200 ml @ 50 mls/hr TPN CONT IV Last administered on 06/27/19at 22:00; Start 06/27/19 at 22:00; Stop 06/28/19 at 21:59; Status DC Morphine Sulfate (Morphine Sulfate) 3 mg PRN Q4HRS PRN IV MODERATE TO SEVERE PAIN; Start 06/28/19 at 14:00 Morphine Sulfate (Morphine Sulfate) 2 mg PRN Q2HR PRN IV MILD PAIN 1-3 Last administered on 06/29/19at 08:44; Start 06/28/19 at 14:00 Morphine Sulfate (Morphine Sulfate) 4 mg PRN Q4HRS PRN IV MODERATE TO SEVERE PAIN; Start 06/28/19 at 14:15 Sodium Chloride 80 meq/Sodium Phosphate 3 mmol/ Potassium Chloride 50 meq/ Potassium Phosphate 17 mmol/ Magnesium Sulfate 10 meq/ Multivitamins 10 ml/Chromium/ Copper/Manganese/ Seleni/Zn 1 ml/ Total Parenteral Nutrition/Amino Acids/Dextrose/ Fat Emulsion Intravenous 1,200 ml @ 50 mls/hr TPN CONT IV Last administered on 06/28/19at 22:14; Start 06/28/19 at 22:00; Stop 06/29/19 at 21:59; Status DC Enoxaparin Sodium (Lovenox 40mg Syringe) 40 mg Q24H SQ ; Start 06/29/19 at 14:00; Status Cancel Enoxaparin Sodium (Lovenox 30mg Syringe) 30 mg Q24H SQ Last administered on 06/30/19at 13:46; Start 06/29/19 at 14:00 Sodium Chloride 60 meq/Sodium Phosphate 13 mmol/ Potassium Chloride 40 meq/ Potassium Phosphate 17 mmol/ Magnesium Sulfate 10 meq/ Multivitamins 10 ml /Chromium/ Copper/Manganese/ Seleni/Zn 1 ml/ Total Parenteral Nutrition/Amino Acids/Dextrose/ Fat Emulsion Intravenous 1,200 ml @ 50 mls/hr TPN CONT IV Last administered on 06/29/19at 21:39; Start 06/29/19 at 22:00; Stop 06/30/19 at 21:59; Status DC Magnesium Sulfate 50 ml @ 25 mls/hr 1X ONCE IV Last administered on 06/30/19at 13:46; Start 06/30/19 at 13:00; Stop 06/30/19 at 14:59; Status DC Sodium Chloride 60 meq/Sodium Phosphate 13 mmol/ Potassium Chloride 20 meq/ Potassium Phosphate 17 mmol/ Magnesium Sulfate 10 meq/ Multivitamins 10 ml/Chromium/ Copper/Manganese/ Seleni/Zn 1 ml/ Total Parenteral Nutrition/Amino Acids/Dextrose/ Fat Emulsion Intravenous 1,200 ml @ 50 mls/hr TPN CONT IV Last administered on 06/30/19at 21:26; Start 06/30/19 at 22:00; Stop 07/01/19 at 21:59 Active Scripts Active Reported Aspirin 81 Mg Tab.chew 1 Tab PO DAILY Ultram (Tramadol Hcl) 50 Mg Tablet 50 Mg PO Q4HRS PRN Potassium Chloride 10 Meq Tab.sr.24h 10 Meq PO DAILY Namenda (Memantine Hcl) 10 Mg Tablet 10 Mg PO BID Zofran (Ondansetron Hcl) 4 Mg Tablet 1 Tab PO PRN Q6-8HRS Imodium A-D (Loperamide Hcl) 1 Mg/7.5 Ml Liquid 1 Mg PO PRN PRN Omeprazole 20 Mg Tablet.dr 1 Tab PO DAILY Acetaminophen 325 Mg Tablet 325 Mg PO Q4HRS Donepezil Hcl 10 Mg Tablet 1 Tab PO DAILY Xeloda (Capecitabine) 500 Mg Tablet 2,000 Mg PO Q12HR Buspirone Hcl 5 Mg Tablet 1 Tab PO QID Melatonin 3 Mg Tablet 1 Tab PO QHS Levothyroxine Sodium 50 Mcg Tablet 50 Mcg PO DAILYAC Cerefolin Nac Caplet (Lmfol Ca/Acetyl/Mb12/Algal Oil) 1 Each Tablet 1 Each PO DAILY Xalatan (Latanoprost) 2.5 Ml Drops 1 Drop EACHEYE QHS Magnesium Oxide 400 Mg Tablet 1 Tab PO TID Pepcid (Famotidine) 20 Mg Tablet 20 Mg PO DAILY Ativan (Lorazepam) 0.5 Mg Tablet 0.5 Mg PO Q4HRS PRN Vitals/I & O Vital Sign - Last 24 Hours 06/30/19 06/30/19 06/30/19 06/30/19 11:00 15:00 15:21 19:25 Temp 98.0 97.9 97.9 97.7 98.0 97.9 97.9 97.7 Pulse 92 97 86 76 Resp 18 18 18 18 B/P (MAP) 101/60 (74) 135/63 (87) 122/62 (82) 109/60 (76) Pulse Ox 97 96 94 100 O2 Delivery Room Air Room Air Room Air Nasal Cannula O2 Flow Rate 2.0 06/30/19 06/30/19 07/01/19 07/01/19 20:00 23:14 03:21 07:20 Temp 97.7 98.3 97.7 98.3 Pulse 77 76 Resp 18 18 B/P (MAP) 108/58 (75) 102/51 (68) Pulse Ox 100 100 O2 Delivery Room Air Nasal Cannula Nasal Cannula Nasal Cannula O2 Flow Rate 2.0 2.0 2.0 Intake and Output 06/30/19 06/30/19 07/01/19 15:00 23:00 07:00 Intake Total 740 ml 240 ml Balance 740 ml 240 ml Nutrition Consultation Dietary Evaluation: Recommendations by RD: PPN/TPN Comments: continue with TPN until able to advance diet REC goal diet: regular , mech soft, thins due to usual diet at home. Expected Outcomes/Goals: to meet > 75% est nutr needs via po intake- not met, goal ongoing Malnutrition Findings: Muscle Mass (Severe): Severe Depletion Food and Nutrition Intake (Sev: <50% est energy req 5days Body Fat Depletion (Non Severe: Mod to Severe Weight Status: Underweight MEHDI WARD MD Jul 01, 2019 08:20
--- NOTE | 2019-07-01 08:27 | PDOC ---
SURGICAL PROGRESS NOTE Subjective Pt without c/o, randall clears well, passing flatus and stools Vital Signs Vital Signs Date Time Temp Pulse Resp B/P (MAP) Pulse Ox O2 Delivery O2 Flow Rate FiO2 07/01/19 07:20 Nasal Cannula 2.0 07/01/19 03:21 98.3 76 18 102/51 (68) 100 98.3 I&O Intake and Output 07/01/19 07:00 Intake Total 980 ml Balance 980 ml Intake Oral 980 ml # Voids 11 # Bowel Movements 4 General: Alert, Cooperative, No acute distress Abdomen: Soft, No tenderness Labs Laboratory Tests Test 06/30/19 05:10 07/01/19 05:15 Sodium Level 139 mmol/L (136-145) 138 mmol/L (136-145) Potassium Level 5.1 mmol/L (3.5-5.1) 4.5 mmol/L (3.5-5.1) Chloride Level 111 mmol/L (98-107) 111 mmol/L (98-107) Carbon Dioxide Level 18 mmol/L (21-32) 16 mmol/L (21-32) Anion Gap 10 (6-14) 11 (6-14) Blood Urea Nitrogen 25 mg/dL (7-20) 21 mg/dL (7-20) Creatinine 0.8 mg/dL (0.6-1.0) 0.8 mg/dL (0.6-1.0) Estimated GFR (Cockcroft-Gault) 68.2 68.2 BUN/Creatinine Ratio 31 (6-20) Glucose Level 103 mg/dL (70-99) 99 mg/dL (70-99) Calcium Level 7.6 mg/dL (8.5-10.1) 7.4 mg/dL (8.5-10.1) Phosphorus Level 2.6 mg/dL (2.6-4.7) 3.1 mg/dL (2.6-4.7) Magnesium Level 1.7 mg/dL (1.8-2.4) 2.0 mg/dL (1.8-2.4) Total Bilirubin 0.3 mg/dL (0.2-1.0) Aspartate Amino Transf (AST/SGOT) 18 U/L (15-37) Alanine Aminotransferase (ALT/SGPT) 14 U/L (14-59) Alkaline Phosphatase 163 U/L (46-116) Total Protein 5.1 g/dL (6.4-8.2) Albumin 1.9 g/dL (3.4-5.0) Albumin/Globulin Ratio 0.6 (1.0-1.7) Laboratory Tests Test 07/01/19 05:15 Sodium Level 138 mmol/L (136-145) Potassium Level 4.5 mmol/L (3.5-5.1) Chloride Level 111 mmol/L (98-107) Carbon Dioxide Level 16 mmol/L (21-32) Anion Gap 11 (6-14) Blood Urea Nitrogen 21 mg/dL (7-20) Creatinine 0.8 mg/dL (0.6-1.0) Estimated GFR (Cockcroft-Gault) 68.2 Glucose Level 99 mg/dL (70-99) Calcium Level 7.4 mg/dL (8.5-10.1) Phosphorus Level 3.1 mg/dL (2.6-4.7) Magnesium Level 2.0 mg/dL (1.8-2.4) Problem List Problems Medical Problems: (1) RUFINO (acute kidney injury) Status: Acute (2) Dehydration Status: Acute (3) Encephalopathy Status: Acute (4) Small bowel obstruction Status: Acute Assessment/Plan s/p SBR will ADAT to soft cont supportive care RACHEL CHING MD Jul 01, 2019 08:27
[2019-07-01] MEDS: busPIRone 5 MG TABLET. PO SCH ×4 (08:58→21:46)
[2019-07-01] MEDS: POTASSIUM CHLORIDE 10 MEQ TABLET.ER. PO SCH (08:58)
[2019-07-01] MEDS: DONEPEZIL HCL 10 MG TABLET. PO SCH (08:58)
[2019-07-01] MEDS: ONDANSETRON PF 4 MG/2 ML VIAL. IV PRN (09:06)
[2019-07-01 11:00] VITALS: BP 119/50
[2019-07-01] MEDS: ENOXAPARIN 30 MG/0.3 ML SYRINGE. SQ SCH (13:44)
[2019-07-01] MEDS: TPN PER PHARMACY MC PRN (14:29)
--- NOTE | 2019-07-01 14:30 | NUR ---
Pharmacy TPN Dosing Note S: ROSA SCHREIBER is a 84 year old F Currently receiving Central Continuous TPN started 06/26/19 B:Pertinent PMH: SBO S/P RESECTION 06/24 Height: 5 feet, 6 inches Weight: 51.519652 kg Current diet: soft diet LABS: Sodium: 138 Potassium: 4.5 Chloride: 111 Calcium: 7.4 Corrected Calcium: 9.08 Magnesium: 2.0 CO2: 16 SCr: 0.8 Glucose: 99 Albumin: 1.9 AST: 18 ALT: 14 TPN FORMULA: TPN TYPE: Central Continuous AMINO ACIDS: 60 gm DEXTROSE: 195 gm LIPIDS: 20 gm SODIUM CHLORIDE: - mEq SODIUM ACETATE: 60 mEq SODIUM PHOSPHATE: 13 mmol POTASSIUM CHLORIDE: 20 mEq POTASSIUM ACETATE: - mEq POTASSIUM PHOSPHATE: 17 mmol MAGNESIUM: 10 mEq CALCIUM: 0 mEq INSULIN: - units MULTIPLE VITAMIN: 10 ml TRACE ELEMENTS: MTE 5 1ML ml(s) TPN PLAN: Electrolytes stable. Changed NaCl to NaAc for acid-base balance. R: Continue TPN ABOVE. Will monitor electrolytes, glucose, and tolerance to TPN. ANSELMO SAAVEDRA [facility], 07/01/19 1430
[2019-07-01 15:00] VITALS: BP 120/60
[2019-07-01] MEDS: ONDANSETRON ODT 4 MG TAB.RAPDIS. PO PRN (18:24)
[2019-07-01 19:00] VITALS: BP 101/49
[2019-07-01] MEDS: LATANOPROST 0.005% OPHTH SOLUTION 2.5ML BOTTLE. OU SCH (21:46)
[2019-07-01] MEDS ORDERED: [UNRECOGNIZED DRUG - OTHER] IV SCH ×10 (22:00)
[2019-07-01] MEDS ORDERED: TOTAL PARENTERAL NUTRITION IV SCH ×10 (22:00)
[2019-07-01] MEDS ORDERED: AMINO ACID IV SCH ×10 (22:00)
[2019-07-01] MEDS ORDERED: DEXTROSE 70% IV SCH ×10 (22:00)
[2019-07-01 23:00] VITALS: BP 96/45
[2019-07-02 03:00] VITALS: BP 90/44
[2019-07-02] MEDS: LEVOTHYROXINE 50 MCG TABLET PO SCH (06:20)
[2019-07-02 06:34] LABS: BASO # 0.1 x10^3/uL (0.0-0.2); BASO % 1 % (0-3); EOS # 0.2 x10^3/uL (0.0-0.7); EOS % 3 % (0-3); HEMATOCRIT 24.5 % (36.0-47.0); HEMOGLOBIN 8.3 g/dL (12.0-15.5); LYMPH # 1.5 x10^3/uL (1.0-4.8); LYMPH % 17 % (24-48); MEAN CORPUSCULAR HEMOGLOBIN 36 pg (25-35); MEAN CORPUSCULAR HGB CONC 34 g/dL (31-37); MEAN CORPUSCULAR VOLUME 107 fL (79-100); MONO # 0.9 x10^3/uL (0.0-1.1); MONO % 10 % (0-9); NEUT % 70 % (31-73); PLATELET COUNT 234 x10^3/uL (140-400); RED CELL DISTRIBUTION WIDTH 21.9 % (11.5-14.5); WHITE BLOOD COUNT 8.7 x10^3/uL (4.0-11.0)
[2019-07-02 07:00] VITALS: BP 85/54
[2019-07-02 07:21] LABS: ALBUMIN 2.1 g/dL (3.4-5.0); ALBUMIN/GLOBULIN RATIO 0.6 (1.0-1.7); CALCIUM 7.6 mg/dL (8.5-10.1); CREATININE 0.9 mg/dL (0.6-1.0); GFR 59.5; POTASSIUM 4.2 mmol/L (3.5-5.1); TOTAL BILIRUBIN 0.2 mg/dL (0.2-1.0); TOTAL PROTEIN 5.8 g/dL (6.4-8.2)
--- NOTE | 2019-07-02 07:51 | PDOC ---
PROGRESS NOTES Chief Complaint Chief Complaint impression acute abd pain, IMPROVING SLOWLY, JOSE A LIQUIDS small bowel obstruction, lactate elevated from this metastatic breast cancer malnutrition acute on chronic renal failure, vasomotor, cognitive decline, dementia Hx, chronic Small-bowel obstruction secondary to a fibrous adhesion. small bowel segmental resection: - Central segmental hemorrhagic infarction with stricture. - Proximal and distal margins of resection viable. 06/24 kub Grossly unchanged appearance of the abdomen including dilated loops of central small bowel containing dilute enteric contrast. increase activity SOFT DIET Past Medical History Cardiovascular: HTN CENTRAL NERVOUS SYSTEM: Dementia Musculoskeletal: Osteoarthritis Endocrine: Hypothyroidism Past Surgical History Past Surgical History: Colon Resection, Other (port placement) Family History Family History: No Significant Social History Smoke: No ALCOHOL: none 26 min pt exam, chart review, > 50% of time spent with exam, chart review, pt care coordination History of Present Illness History of Present Illness Dr. Mccoy, 06/24 ec-lap, , release small-bowel obstruction, small bowel resection with primary anastomosis. renal funciton better still getting a lot of fluid out of NG pain is minimal, change to TPN as no flatus, and still needs NG Vitals Vitals Vital Signs Date Time Temp Pulse Resp B/P (MAP) Pulse Ox O2 Delivery O2 Flow Rate FiO2 07/02/19 07:00 99.1 90 18 85/54 (64) 98 Room Air 99.1 07/01/19 07:20 2.0 Physical Exam General: Alert, Cooperative, No acute distress Heart: Regular rate, Normal S1, Normal S2 Lungs: Clear Abdomen: Normal bowel sounds, Soft, No hepatosplenomegaly, Other (mild distention) Extremities: No clubbing, No cyanosis Skin: No breakdown Labs LABS [facility] Accession Number: [id number] . 01 Material submitted: . small bowel - STENOTIC SMALL BOWEL . 01 Clinical history: . SBO. . 02 Diagnosis: Segment of small bowel, small bowel segmental resection: - Central segmental hemorrhagic infarction with stricture. - Proximal and distal margins of resection viable. (JPM/db; 06/27/2019) LBQ/06/27/2019 . 02 Laboratory Tests Test 07/02/19 06:00 White Blood Count 8.7 x10^3/uL (4.0-11.0) Red Blood Count 2.30 x10^6/uL (3.50-5.40) Hemoglobin 8.3 g/dL (12.0-15.5) Hematocrit 24.5 % (36.0-47.0) Mean Corpuscular Volume 107 fL (79-100) Mean Corpuscular Hemoglobin 36 pg (25-35) Mean Corpuscular Hemoglobin Concent 34 g/dL (31-37) Red Cell Distribution Width 21.9 % (11.5-14.5) Platelet Count 234 x10^3/uL (140-400) Neutrophils (%) (Auto) 70 % (31-73) Lymphocytes (%) (Auto) 17 % (24-48) Monocytes (%) (Auto) 10 % (0-9) Eosinophils (%) (Auto) 3 % (0-3) Basophils (%) (Auto) 1 % (0-3) Neutrophils # (Auto) 6.0 x10^3/uL (1.8-7.7) Lymphocytes # (Auto) 1.5 x10^3/uL (1.0-4.8) Monocytes # (Auto) 0.9 x10^3/uL (0.0-1.1) Eosinophils # (Auto) 0.2 x10^3/uL (0.0-0.7) Basophils # (Auto) 0.1 x10^3/uL (0.0-0.2) Sodium Level 138 mmol/L (136-145) Potassium Level 4.2 mmol/L (3.5-5.1) Chloride Level 111 mmol/L (98-107) Carbon Dioxide Level 15 mmol/L (21-32) Anion Gap 12 (6-14) Blood Urea Nitrogen 24 mg/dL (7-20) Creatinine 0.9 mg/dL (0.6-1.0) Estimated GFR (Cockcroft-Gault) 59.5 BUN/Creatinine Ratio 27 (6-20) Glucose Level 89 mg/dL (70-99) Calcium Level 7.6 mg/dL (8.5-10.1) Total Bilirubin 0.2 mg/dL (0.2-1.0) Aspartate Amino Transf (AST/SGOT) 33 U/L (15-37) Alanine Aminotransferase (ALT/SGPT) 18 U/L (14-59) Alkaline Phosphatase 195 U/L (46-116) Total Protein 5.8 g/dL (6.4-8.2) Albumin 2.1 g/dL (3.4-5.0) Albumin/Globulin Ratio 0.6 (1.0-1.7) Assessment and Plan Assessmemt and Plan Problems Medical Problems: (1) RUFINO (acute kidney injury) Status: Acute (2) Dehydration Status: Acute (3) Encephalopathy Status: Acute (4) Small bowel obstruction Status: Acute Comment Review of Relevant I have reviewed the following items lola (where applicable) has been applied. Labs Laboratory Tests Test 06/30/19 17:40 07/01/19 05:15 07/02/19 06:00 Nasal Screen MRSA (PCR) Negative (Negative) Sodium Level 138 mmol/L (136-145) 138 mmol/L (136-145) Potassium Level 4.5 mmol/L (3.5-5.1) 4.2 mmol/L (3.5-5.1) Chloride Level 111 mmol/L (98-107) 111 mmol/L (98-107) Carbon Dioxide Level 16 mmol/L (21-32) 15 mmol/L (21-32) Anion Gap 11 (6-14) 12 (6-14) Blood Urea Nitrogen 21 mg/dL (7-20) 24 mg/dL (7-20) Creatinine 0.8 mg/dL (0.6-1.0) 0.9 mg/dL (0.6-1.0) Estimated GFR (Cockcroft-Gault) 68.2 59.5 Glucose Level 99 mg/dL (70-99) 89 mg/dL (70-99) Calcium Level 7.4 mg/dL (8.5-10.1) 7.6 mg/dL (8.5-10.1) Phosphorus Level 3.1 mg/dL (2.6-4.7) Magnesium Level 2.0 mg/dL (1.8-2.4) White Blood Count 8.7 x10^3/uL (4.0-11.0) Red Blood Count 2.30 x10^6/uL (3.50-5.40) Hemoglobin 8.3 g/dL (12.0-15.5) Hematocrit 24.5 % (36.0-47.0) Mean Corpuscular Volume 107 fL (79-100) Mean Corpuscular Hemoglobin 36 pg (25-35) Mean Corpuscular Hemoglobin Concent 34 g/dL (31-37) Red Cell Distribution Width 21.9 % (11.5-14.5) Platelet Count 234 x10^3/uL (140-400) Neutrophils (%) (Auto) 70 % (31-73) Lymphocytes (%) (Auto) 17 % (24-48) Monocytes (%) (Auto) 10 % (0-9) Eosinophils (%) (Auto) 3 % (0-3) Basophils (%) (Auto) 1 % (0-3) Neutrophils # (Auto) 6.0 x10^3/uL (1.8-7.7) Lymphocytes # (Auto) 1.5 x10^3/uL (1.0-4.8) Monocytes # (Auto) 0.9 x10^3/uL (0.0-1.1) Eosinophils # (Auto) 0.2 x10^3/uL (0.0-0.7) Basophils # (Auto) 0.1 x10^3/uL (0.0-0.2) BUN/Creatinine Ratio 27 (6-20) Total Bilirubin 0.2 mg/dL (0.2-1.0) Aspartate Amino Transf (AST/SGOT) 33 U/L (15-37) Alanine Aminotransferase (ALT/SGPT) 18 U/L (14-59) Alkaline Phosphatase 195 U/L (46-116) Total Protein 5.8 g/dL (6.4-8.2) Albumin 2.1 g/dL (3.4-5.0) Albumin/Globulin Ratio 0.6 (1.0-1.7) Laboratory Tests Test 07/02/19 06:00 White Blood Count 8.7 x10^3/uL (4.0-11.0) Red Blood Count 2.30 x10^6/uL (3.50-5.40) Hemoglobin 8.3 g/dL (12.0-15.5) Hematocrit 24.5 % (36.0-47.0) Mean Corpuscular Volume 107 fL (79-100) Mean Corpuscular Hemoglobin 36 pg (25-35) Mean Corpuscular Hemoglobin Concent 34 g/dL (31-37) Red Cell Distribution Width 21.9 % (11.5-14.5) Platelet Count 234 x10^3/uL (140-400) Neutrophils (%) (Auto) 70 % (31-73) Lymphocytes (%) (Auto) 17 % (24-48) Monocytes (%) (Auto) 10 % (0-9) Eosinophils (%) (Auto) 3 % (0-3) Basophils (%) (Auto) 1 % (0-3) Neutrophils # (Auto) 6.0 x10^3/uL (1.8-7.7) Lymphocytes # (Auto) 1.5 x10^3/uL (1.0-4.8) Monocytes # (Auto) 0.9 x10^3/uL (0.0-1.1) Eosinophils # (Auto) 0.2 x10^3/uL (0.0-0.7) Basophils # (Auto) 0.1 x10^3/uL (0.0-0.2) Sodium Level 138 mmol/L (136-145) Potassium Level 4.2 mmol/L (3.5-5.1) Chloride Level 111 mmol/L (98-107) Carbon Dioxide Level 15 mmol/L (21-32) Anion Gap 12 (6-14) Blood Urea Nitrogen 24 mg/dL (7-20) Creatinine 0.9 mg/dL (0.6-1.0) Estimated GFR (Cockcroft-Gault) 59.5 BUN/Creatinine Ratio 27 (6-20) Glucose Level 89 mg/dL (70-99) Calcium Level 7.6 mg/dL (8.5-10.1) Total Bilirubin 0.2 mg/dL (0.2-1.0) Aspartate Amino Transf (AST/SGOT) 33 U/L (15-37) Alanine Aminotransferase (ALT/SGPT) 18 U/L (14-59) Alkaline Phosphatase 195 U/L (46-116) Total Protein 5.8 g/dL (6.4-8.2) Albumin 2.1 g/dL (3.4-5.0) Albumin/Globulin Ratio 0.6 (1.0-1.7) Microbiology 06/20/19 Urine Culture - Final, Complete 06/20/19 Urine Culture Result 1 (YOBANY) - Final, Complete Medications Current Medications Potassium Chloride/Sodium Chloride 1,000 ml @ 125 mls/hr Q8H IV Last administered on 06/20/19at 07:57; Start 06/19/19 at 22:15; Stop 06/20/19 at 08:50; Status DC Throat Lozenges (Chloraseptic) 1 spray PRN Q2HR PRN PO SORE THROAT, 2ND CHOICE; Start 06/19/19 at 22:15 Throat Lozenges (Cepacol Sore Throat Lozenge) 1 juan PRN Q2HRS PRN PO SORE THROAT, 1ST CHOICE; Start 06/19/19 at 22:15 Sodium Chloride 250 ml @ 250 mls/hr 1X ONCE IV Last administered on 06/20/19at 03:24; Start 06/20/19 at 02:45; Stop 06/20/19 at 03:45; Status DC Ondansetron HCl (Zofran) 4 mg PRN Q6HRS PRN IV NAUSEA/VOMITING Last administered on 07/01/19at 09:08; Start 06/20/19 at 08:00 Buspirone HCl (Buspar) 5 mg QID PO Last administered on 07/01/19at 21:47; Start 06/20/19 at 09:00 Donepezil HCl (Aricept) 10 mg DAILY PO Last administered on 07/01/19at 09:00; Start 06/20/19 at 09:00 Latanoprost (Xalatan) 1 drop QHS OU Last administered on 07/01/19at 21:47; Start 06/20/19 at 21:00 Levothyroxine Sodium (Synthroid) 50 mcg DAILYAC PO ; Start 06/20/19 at 09:00; Stop 06/22/19 at 15:39; Status DC Lorazepam (Ativan) 0.5 mg PRN Q4HRS PRN PO ANXIETY / AGITATION; Start 06/20/19 at 08:45 Potassium Chloride (Klor-Con) 10 meq DAILY PO Last administered on 07/01/19at 09:00; Start 06/20/19 at 09:00 Non-Formulary Medication (Melatonin ) 1 tab QHS PO ; Start 06/20/19 at 21:00; Status UNV Pantoprazole Sodium (Protonix) 40 mg DAILYAC PO ; Start 06/20/19 at 09:00; Stop 06/21/19 at 22:23; Status DC Ondansetron HCl (Zofran Odt) 4 mg PRN Q6HRS PRN PO NAUSEA/VOMITING Last administered on 07/01/19at 18:24; Start 06/20/19 at 09:00 Amino Acids/ Glycerin/ Electrolytes 1,000 ml @ 80 mls/hr [id number] IV Last administered on 06/26/19at 10:41; Start 06/20/19 at 09:00; Stop 06/26/19 at 21:59; Status DC Sodium Chloride 1,000 ml @ 1,000 mls/hr 1X ONCE IV Last administered on 06/20/19at 13:50; Start 06/20/19 at 13:30; Stop 06/20/19 at 14:29; Status DC Methylprednisolone Sodium Succinate (SOLU-Medrol 125MG VIAL) 125 mg 1X ONCE IV Last administered on 06/21/19at 17:15; Start 06/21/19 at 18:00; Stop 06/21/19 at 18:01; Status DC Methylprednisolone Sodium Succinate (SOLU-Medrol 125MG VIAL) 125 mg 1X ONCE IV Last administered on 06/22/19at 01:38; Start 06/22/19 at 00:00; Stop 06/22/19 at 00:01; Status DC Methylprednisolone Sodium Succinate (SOLU-Medrol 125MG VIAL) 125 mg 1X ONCE IV Last administered on 06/22/19at 05:43; Start 06/22/19 at 06:00; Stop 06/22/19 at 06:01; Status DC Diphenhydramine HCl (Benadryl) 50 mg 1X ONCE IVP Last administered on 06/22/19at 07:46; Start 06/22/19 at 07:00; Stop 06/22/19 at 07:01; Status DC Sodium Chloride 500 ml @ 500 mls/hr 1X ONCE IV Last administered on 06/21/19at 15:38; Start 06/21/19 at 15:30; Stop 06/21/19 at 16:29; Status DC Levofloxacin (Levaquin) 250 mg DAILY06 PO ; Start 06/22/19 at 06:00; Stop 06/21/19 at 22:23; Status DC Levofloxacin/ Dextrose 50 ml @ 50 mls/hr Q24H IV ; Start 06/21/19 at 22:30; Stop 06/21/19 at 22:34; Status DC Pantoprazole Sodium (PROTONIX VIAL for IV PUSH) 40 mg DAILYAC IVP Last administered on 07/01/19at 05:45; Start 06/22/19 at 07:30; Stop 07/01/19 at 12:11; Status DC Levofloxacin/ Dextrose 50 ml @ 50 mls/hr Q24H IV Last administered on 06/22/19at 05:43; Start 06/22/19 at 06:00; Stop 06/22/19 at 13:57; Status DC Iohexol (Omnipaque 300 Mg/ml) 400 ml 1X ONCE PO ; Start 06/22/19 at 07:45; Stop 06/22/19 at 07:50; Status DC Info (CONTRAST GIVEN -- Rx MONITORING) 1 each PRN DAILY PRN MC SEE COMMENTS; Start 06/22/19 at 08:00; Stop 06/24/19 at 07:59; Status DC Sodium Chloride 1,000 ml @ 100 mls/hr 1X ONCE IV Last administered on 06/22/19at 11:40; Start 06/22/19 at 11:15; Stop 06/22/19 at 21:14; Status DC Levothyroxine Sodium 25 mcg/ Sodium Chloride 5 ml @ 100 mls/hr Q72H IVP Last administered on 06/29/19at 06:24; Start 06/26/19 at 06:00; Stop 07/01/19 at 12:10; Status DC Sodium Chloride 1,000 ml @ 100 mls/hr 1X ONCE IV Last administered on 06/23/19at 11:59; Start 06/23/19 at 11:45; Stop 06/23/19 at 21:44; Status DC Propofol 20 ml @ As Directed STK-MED ONCE IV ; Start 06/24/19 at 09:27; Stop 06/24/19 at 09:28; Status DC Lidocaine HCl (Lidocaine Pf 2% Vial) 5 ml STK-MED ONCE .ROUTE ; Start 06/24/19 at 09:27; Stop 06/24/19 at 09:28; Status DC Rocuronium [place] (Zemuron) 50 mg STK-MED ONCE .ROUTE ; Start 06/24/19 at 09:28; Stop 06/24/19 at 09:28; Status DC Fentanyl Citrate (Fentanyl 2ml Vial) 100 mcg STK-MED ONCE .ROUTE ; Start 06/24/19 at 09:28; Stop 06/24/19 at 09:28; Status DC Cefazolin Sodium/ Dextrose 50 ml @ 100 mls/hr 1X PREOP PRN IV protocol Last administered on 06/24/19at 11:37; Start 06/24/19 at 06:00; Stop 06/24/19 at 15:00; Status DC Fentanyl Citrate (Fentanyl 2ml Vial) 25 mcg PRN Q5MIN PRN IV MILD PAIN 1-3 Last administered on 06/24/19at 13:48; Start 06/24/19 at 10:00; Stop 06/25/19 at 09:59; Status DC Fentanyl Citrate (Fentanyl 2ml Vial) 50 mcg PRN Q5MIN PRN IV MODERATE TO SEVERE PAIN Last administered on 06/24/19at 14:08; Start 06/24/19 at 10:00; Stop 06/25/19 at 09:59; Status DC Morphine Sulfate (Morphine Sulfate) 1 mg PRN Q10MIN PRN IV SEVERE PAIN 7-10; Start 06/24/19 at 10:00; Stop 06/25/19 at 09:59; Status DC Ringer's Solution 1,000 ml @ 30 mls/hr Q24H IV ; Start 06/24/19 at 10:00; Stop 06/24/19 at 10:14; Status DC Hydromorphone HCl (Dilaudid) 0.5 mg PRN Q10MIN PRN IV SEV PAIN, Second choice; Start 06/24/19 at 10:00; Stop 06/25/19 at 09:59; Status DC Prochlorperazine Edisylate (Compazine) 5 mg PACU PRN PRN IV NAUSEA, MRX1 Last administered on 06/24/19at 13:27; Start 06/24/19 at 10:00; Stop 06/25/19 at 09:59; Status DC Sodium Chloride 1,000 ml @ 40 mls/hr Q24H IV Last administered on 06/24/19at 14:16; Start 06/24/19 at 10:15; Stop 06/27/19 at 10:52; Status DC Bupivacaine HCl/ Epinephrine Bitart (Sensorcain-Mpf Epi 0.5%-1:[id number]) 30 ml 1X ONCE INJ Last administered on 06/24/19at 12:53; Start 06/24/19 at 10:30; Stop 06/24/19 at 10:31; Status DC Desflurane (Suprane) 60 ml STK-MED ONCE IH ; Start 06/24/19 at 11:14; Stop 06/24/19 at 11:15; Status DC Ondansetron HCl (Zofran) 4 mg STK-MED ONCE .ROUTE ; Start 06/24/19 at 11:16; Stop 06/24/19 at 11:16; Status DC Dexamethasone Sodium Phosphate (Decadron) 4 mg STK-MED ONCE .ROUTE ; Start 06/24/19 at 11:17; Stop 06/24/19 at 11:17; Status DC Phenylephrine HCl (PHENYLEPHRINE in 0.9% NACL PF) 1 mg STK-MED ONCE IV ; Start 06/24/19 at 11:21; Stop 06/24/19 at 11:21; Status DC Sodium Chloride 1,000 ml @ 100 mls/hr 1X ONCE IV ; Start 06/24/19 at 11:30; Stop 06/24/19 at 21:29; Status DC Ephedrine Sulfate (ePHEDrine PF IN SALINE SYRINGE) 50 mg STK-MED ONCE IV ; Start 06/24/19 at 11:26; Stop 06/24/19 at 11:26; Status DC Ondansetron HCl (Zofran) 4 mg STK-MED ONCE .ROUTE ; Start 06/24/19 at 11:38; Stop 06/24/19 at 11:38; Status DC Neostigmine Methylsulfate (Neostigmine Methylsulfate) 5 mg STK-MED ONCE .ROUTE ; Start 06/24/19 at 11:39; Stop 06/24/19 at 11:39; Status DC Glycopyrrolate (Robinul) 1 mg STK-MED ONCE .ROUTE ; Start 06/24/19 at 11:39; Stop 06/24/19 at 11:39; Status DC Prochlorperazine Edisylate (Compazine) 10 mg STK-MED ONCE .ROUTE ; Start at 12:59; Stop 06/24/19 at 13:00; Status DC Fentanyl Citrate (Fentanyl 2ml Vial) 100 mcg STK-MED ONCE .ROUTE ; Start 06/09 04/27 at 13:08; Stop 06/24/19 at 13:08; Status DC Sodium Chloride (Normal Saline Flush) 3 ml QSHIFT PRN IV AFTER MEDS AND BLOOD DRAWS; Start 06/24/19 at 13:15 Naloxone HCl (Narcan) 0.4 mg PRN Q2MIN PRN IV SEE INSTRUCTIONS; Start 06/24/19 at 13:15 Sodium Chloride 1,000 ml @ 25 mls/hr Q24H IV ; Start 06/24/19 at 13:14; Stop 06/25/19 at 11:05; Status DC Morphine Sulfate (Morphine Sulfate) 4 mg PRN Q4HRS PRN IV MODERATE TO SEVERE PAIN Last administered on 06/24/19at 20:50; Start 06/24/19 at 13:15; Stop 06/10 at 13:57; Status DC Sodium Chloride 1,000 ml @ 100 mls/hr 1X ONCE IV Last administered on 06/25/19at 11:04; Start 06/25/19 at 10:30; Stop 06/25/19 at 20:29; Status DC Info (Tpn Per Pharmacy) 1 each PRN DAILY PRN MC SEE COMMENTS Last administered on 07/01/19at 14:29; Start 06/26/19 at 11:15 Sodium Chloride 1,000 ml @ 100 mls/hr 1X ONCE IV Last administered on 06/26/19at 12:51; Start 06/26/19 at 11:15; Stop 06/26/19 at 21:14; Status DC Enoxaparin Sodium (Lovenox 30mg Syringe) 30 mg Q24H SQ Last administered on 06/28/19at 14:16; Start 06/26/19 at 14:00; Stop 06/28/19 at 14:32; Status DC Sodium Chloride 90 meq/Potassium Chloride 50 meq/ Potassium Phosphate 13.6 mmol/Magnesium Sulfate 10 meq/ Calcium Gluconate 10 meq/ Multivitamins 10 ml/Chromium/ Copper/Manganese/ Seleni/Zn 1 ml/ Total Parenteral Nutrition/Amino Acids/Dextrose/ Fat Emulsion Intravenous 1,200 ml @ 50 mls/hr TPN CONT IV Last administered on 06/26/19at 22:42; Start 06/26/19 at 22:00; Stop 06/27/19 at 21:59; Status DC Potassium Phosphate 13.6 mmol/Dextrose 104.5333 ml @ 52.267 m... 1X ONCE IV Last administered on 06/27/19at 14:23; Start 06/27/19 at 13:00; Stop 06/27/19 at 14:59; Status DC Sodium Chloride 90 meq/Potassium Chloride 50 meq/ Potassium Phosphate 17 mmol/ Magnesium Sulfate 10 meq/Calcium Gluconate 10 meq/ Multivitamins 10 ml/Chromium/ Copper/Manganese/ Seleni/Zn 1 ml/ Total Parenteral Nutrition/Amino Acids/Dextrose/ Fat Emulsion Intravenous 1,200 ml @ 50 mls/hr TPN CONT IV Last administered on 06/27/19at 22:00; Start 06/27/19 at 22:00; Stop 06/28/19 at 21:59; Status DC Morphine Sulfate (Morphine Sulfate) 3 mg PRN Q4HRS PRN IV MODERATE PAIN; Start 06/28/19 at 14:00 Morphine Sulfate (Morphine Sulfate) 2 mg PRN Q2HR PRN IV MILD PAIN 1-3 Last administered on 06/29/19at 08:44; Start 06/28/19 at 14:00 Morphine Sulfate (Morphine Sulfate) 4 mg PRN Q4HRS PRN IV SEVERE PAIN; Start 06/28/19 at 14:15 Sodium Chloride 80 meq/Sodium Phosphate 3 mmol/ Potassium Chloride 50 meq/ Potassium Phosphate 17 mmol/ Magnesium Sulfate 10 meq/ Multivitamins 10 ml/Chromium/ Copper/Manganese/ Seleni/Zn 1 ml/ Total Parenteral Nutrition/Amino Acids/Dextrose/ Fat Emulsion Intravenous 1,200 ml @ 50 mls/hr TPN CONT IV Last administered on 06/28/19at 22:14; Start 06/28/19 at 22:00; Stop 06/29/19 at 21:59; Status DC Enoxaparin Sodium (Lovenox 40mg Syringe) 40 mg Q24H SQ ; Start 06/29/19 at 14:00; Status Cancel Enoxaparin Sodium (Lovenox 30mg Syringe) 30 mg Q24H SQ Last administered on 07/01/19at 13:45; Start 06/29/19 at 14:00 Sodium Chloride 60 meq/Sodium Phosphate 13 mmol/ Potassium Chloride 40 meq/ Potassium Phosphate 17 mmol/ Magnesium Sulfate 10 meq/ Multivitamins 10 ml/Chrom ium/ Copper/Manganese/ Seleni/Zn 1 ml/ Total Parenteral Nutrition/Amino Acids/Dextrose/ Fat Emulsion Intravenous 1,200 ml @ 50 mls/hr TPN CONT IV Last administered on 06/29/19at 21:39; Start 06/29/19 at 22:00; Stop 06/30/19 at 21:59; Status DC Magnesium Sulfate 50 ml @ 25 mls/hr 1X ONCE IV Last administered on 06/30/19at 13:46; Start 06/30/19 at 13:00; Stop 06/30/19 at 14:59; Status DC Sodium Chloride 60 meq/Sodium Phosphate 13 mmol/ Potassium Chloride 20 meq/ Potassium Phosphate 17 mmol/ Magnesium Sulfate 10 meq/ Multivitamins 10 ml/Chromium/ Copper/Manganese/ Seleni/Zn 1 ml/ Total Parenteral Nutrition/Amino Acids/Dextrose/ Fat Emulsion Intravenous 1,200 ml @ 50 mls/hr TPN CONT IV Last administered on 06/30/19at 21:26; Start 06/30/19 at 22:00; Stop 07/01/19 at 21:59; Status DC Levothyroxine Sodium (Synthroid) 50 mcg DAILY06 PO Last administered on 07/02/19at 06:20; Start 07/02/19 at 06:00 Pantoprazole Sodium (Protonix) 40 mg DAILYAC PO ; Start 07/02/19 at 07:30 Sodium Acetate 60 meq/Sodium Phosphate 13 mmol/ Potassium Chloride 20 meq/ Potassium Phosphate 17 mmol/ Magnesium Sulfate 10 meq/ Multivitamins 10 ml/Chromium/ Copper/Manganese/ Seleni/Zn 1 ml/ Total Parenteral Nutrition/Amino Acids/Dextrose/ Fat Emulsion Intravenous 1,200 ml @ 50 mls/hr TPN CONT IV Last administered on 07/01/19at 21:47; Start 07/01/19 at 22:00; Stop 07/02/19 at 21:59 Active Scripts Active Reported Aspirin 81 Mg Tab.chew 1 Tab PO DAILY Ultram (Tramadol Hcl) 50 Mg Tablet 50 Mg PO Q4HRS PRN Potassium Chloride 10 Meq Tab.sr.24h 10 Meq PO DAILY Namenda (Memantine Hcl) 10 Mg Tablet 10 Mg PO BID Zofran (Ondansetron Hcl) 4 Mg Tablet 1 Tab PO PRN Q6-8HRS Imodium A-D (Loperamide Hcl) 1 Mg/7.5 Ml Liquid 1 Mg PO PRN PRN Omeprazole 20 Mg Tablet.dr 1 Tab PO DAILY Acetaminophen 325 Mg Tablet 325 Mg PO Q4HRS Donepezil Hcl 10 Mg Tablet 1 Tab PO DAILY Xeloda (Capecitabine) 500 Mg Tablet 2,000 Mg PO Q12HR Buspirone Hcl 5 Mg Tablet 1 Tab PO QID Melatonin 3 Mg Tablet 1 Tab PO QHS Levothyroxine Sodium 50 Mcg Tablet 50 Mcg PO DAILYAC Cerefolin Nac Caplet (Lmfol Ca/Acetyl/Mb12/Algal Oil) 1 Each Tablet 1 Each PO DAILY Xalatan (Latanoprost) 2.5 Ml Drops 1 Drop EACHEYE QHS Magnesium Oxide 400 Mg Tablet 1 Tab PO TID Pepcid (Famotidine) 20 Mg Tablet 20 Mg PO DAILY Ativan (Lorazepam) 0.5 Mg Tablet 0.5 Mg PO Q4HRS PRN Vitals/I & O Vital Sign - Last 24 Hours 07/01/19 07/01/19 07/01/19 07/01/19 11:00 15:00 19:00 19:50 Temp 97.7 98.9 99.2 97.7 98.9 99.2 Pulse 78 80 85 Resp 18 18 18 B/P (MAP) 119/50 (73) 120/60 (80) 101/49 (66) Pulse Ox 96 96 94 O2 Delivery Room Air Room Air Room Air Room Air 07/01/19 07/02/19 07/02/19 23:00 03:00 07:00 Temp 99.1 99.1 99.1 99.1 99.1 99.1 Pulse 84 75 90 Resp 18 18 18 B/P (MAP) 96/45 (62) 90/44 (59) 85/54 (64) Pulse Ox 95 91 98 O2 Delivery Room Air Room Air Room Air Intake and Output 07/01/19 07/01/19 07/02/19 14:59 22:59 06:59 Intake Total 120 ml 220 ml 1320 ml Output Total 25 ml 150 ml Balance 95 ml 220 ml 1170 ml Nutrition Consultation Dietary Evaluation: Recommendations by RD: PPN/TPN Comments: continue with TPN until able to advance diet REC goal diet: regular , mech soft, thins due to usual diet at home. Expected Outcomes/Goals: to meet > 75% est nutr needs via po intake- not met, goal ongoing Malnutrition Findings: Muscle Mass (Severe): Severe Depletion Food and Nutrition Intake (Sev: <50% est energy req 5days Body Fat Depletion (Non Severe: Mod to Severe Weight Status: Underweight MEHDI WARD MD Jul 02, 2019 07:51
[2019-07-02] MEDS: DONEPEZIL HCL 10 MG TABLET. PO SCH (08:45)
[2019-07-02] MEDS: PANTOPRAZOLE 40 MG TABLET.DR. PO SCH (08:45)
[2019-07-02] MEDS: ONDANSETRON ODT 4 MG TAB.RAPDIS. PO PRN ×2 (08:46→16:52)
[2019-07-02] MEDS: busPIRone 5 MG TABLET. PO SCH ×4 (08:46→20:20)
[2019-07-02] MEDS: POTASSIUM CHLORIDE 10 MEQ TABLET.ER. PO SCH (08:46)
[2019-07-02 11:00] VITALS: BP 89/46
[2019-07-02] MEDS: ENOXAPARIN 30 MG/0.3 ML SYRINGE. SQ SCH (13:26)
[2019-07-02 13:33] LABS: PHOSPHORUS 2.9 mg/dL (2.6-4.7)
--- NOTE | 2019-07-02 13:42 | NUR ---
Dr. Garcia in to see pt and notified of pt vomiting undigested food after eating.
[2019-07-02] MEDS: TPN PER PHARMACY MC PRN (13:44)
--- NOTE | 2019-07-02 13:47 | NUR ---
Pharmacy TPN Dosing Note S: ROSA SCHREIBER is a 84 year old F Currently receiving Central Continuous TPN started 06/26/19 B:Pertinent PMH: SBO S/P RESECTION 06/24 Height: 5 feet, 6 inches Weight: 51.8 kg Current diet: soft diet LABS: Sodium: 138 Potassium: 4.2 Chloride: 111 Calcium: 7.6 Corrected Calcium: 9.12 Magnesium: 2 CO2: 15 SCr: 0.9 Glucose: 89 Albumin: 2.1 AST: 33 ALT: 18 TPN FORMULA: TPN TYPE: Central Continuous AMINO ACIDS: 60 gm DEXTROSE: 195 gm LIPIDS: 20 gm SODIUM ACETATE: 60 mEq SODIUM PHOSPHATE: 13 mmol POTASSIUM ACETATE: 20 mEq POTASSIUM PHOSPHATE: 17 mmol MAGNESIUM: 10 mEq MULTIPLE VITAMIN: 10 ml TRACE ELEMENTS: MTE 5 1ML TPN PLAN: All chloride converted to acetate salt form. R: Change TPN per plan and ordered formula. Will monitor electrolytes, glucose, and tolerance to TPN. Jenn Ceballos [facility], 07/02/19 [id number]
--- NOTE | 2019-07-02 14:04 | PDOC ---
PROGRESS NOTES Subjective Subjective feeling "well", denies pain, stating she's passing stools, nurse reports some intermittent emesis, she admits but states it was "couple of days ago", records show emesis earlier this am Objective Objective Vital Signs Date Time Temp Pulse Resp B/P (MAP) Pulse Ox O2 Delivery O2 Flow Rate FiO2 07/02/19 11:00 98.9 91 18 89/46 (60) 100 Room Air 98.9 07/01/19 07:20 2.0 Intake and Output 07/02/19 07:00 Intake Total 1660 ml Output Total 175 ml Balance 1485 ml Intake Oral 460 ml IV Total 600 ml Other 600 ml Emesis 175 ml # Voids 4 # Bowel Movements 1 Physical Exam Abdomen: Soft, No hepatosplenomegaly General: Alert, Oriented X3 Assessment Assessment Problems Medical Problems: (1) RUFINO (acute kidney injury) Status: Acute (2) Dehydration Status: Acute (3) Encephalopathy Status: Acute (4) Small bowel obstruction Status: Acute Plan Plan of Care Gradual progression, having bowel function, however some emesis recorded; continue to monitor, if persists may need further evaluation Comment Review of Relevant I have reviewed the following items lola (where applicable) has been applied. Labs Laboratory Tests Test 06/30/19 17:40 07/01/19 05:15 07/02/19 06:00 Nasal Screen MRSA (PCR) Negative (Negative) Sodium Level 138 mmol/L (136-145) 138 mmol/L (136-145) Potassium Level 4.5 mmol/L (3.5-5.1) 4.2 mmol/L (3.5-5.1) Chloride Level 111 mmol/L (98-107) 111 mmol/L (98-107) Carbon Dioxide Level 16 mmol/L (21-32) 15 mmol/L (21-32) Anion Gap 11 (6-14) 12 (6-14) Blood Urea Nitrogen 21 mg/dL (7-20) 24 mg/dL (7-20) Creatinine 0.8 mg/dL (0.6-1.0) 0.9 mg/dL (0.6-1.0) Estimated GFR (Cockcroft-Gault) 68.2 59.5 Glucose Level 99 mg/dL (70-99) 89 mg/dL (70-99) Calcium Level 7.4 mg/dL (8.5-10.1) 7.6 mg/dL (8.5-10.1) Phosphorus Level 3.1 mg/dL (2.6-4.7) 2.9 mg/dL (2.6-4.7) Magnesium Level 2.0 mg/dL (1.8-2.4) 2.0 mg/dL (1.8-2.4) White Blood Count 8.7 x10^3/uL (4.0-11.0) Red Blood Count 2.30 x10^6/uL (3.50-5.40) Hemoglobin 8.3 g/dL (12.0-15.5) Hematocrit 24.5 % (36.0-47.0) Mean Corpuscular Volume 107 fL (79-100) Mean Corpuscular Hemoglobin 36 pg (25-35) Mean Corpuscular Hemoglobin Concent 34 g/dL (31-37) Red Cell Distribution Width 21.9 % (11.5-14.5) Platelet Count 234 x10^3/uL (140-400) Neutrophils (%) (Auto) 70 % (31-73) Lymphocytes (%) (Auto) 17 % (24-48) Monocytes (%) (Auto) 10 % (0-9) Eosinophils (%) (Auto) 3 % (0-3) Basophils (%) (Auto) 1 % (0-3) Neutrophils # (Auto) 6.0 x10^3/uL (1.8-7.7) Lymphocytes # (Auto) 1.5 x10^3/uL (1.0-4.8) Monocytes # (Auto) 0.9 x10^3/uL (0.0-1.1) Eosinophils # (Auto) 0.2 x10^3/uL (0.0-0.7) Basophils # (Auto) 0.1 x10^3/uL (0.0-0.2) BUN/Creatinine Ratio 27 (6-20) Total Bilirubin 0.2 mg/dL (0.2-1.0) Aspartate Amino Transf (AST/SGOT) 33 U/L (15-37) Alanine Aminotransferase (ALT/SGPT) 18 U/L (14-59) Alkaline Phosphatase 195 U/L (46-116) Total Protein 5.8 g/dL (6.4-8.2) Albumin 2.1 g/dL (3.4-5.0) Albumin/Globulin Ratio 0.6 (1.0-1.7) Laboratory Tests Test 07/02/19 06:00 White Blood Count 8.7 x10^3/uL (4.0-11.0) Red Blood Count 2.30 x10^6/uL (3.50-5.40) Hemoglobin 8.3 g/dL (12.0-15.5) Hematocrit 24.5 % (36.0-47.0) Mean Corpuscular Volume 107 fL (79-100) Mean Corpuscular Hemoglobin 36 pg (25-35) Mean Corpuscular Hemoglobin Concent 34 g/dL (31-37) Red Cell Distribution Width 21.9 % (11.5-14.5) Platelet Count 234 x10^3/uL (140-400) Neutrophils (%) (Auto) 70 % (31-73) Lymphocytes (%) (Auto) 17 % (24-48) Monocytes (%) (Auto) 10 % (0-9) Eosinophils (%) (Auto) 3 % (0-3) Basophils (%) (Auto) 1 % (0-3) Neutrophils # (Auto) 6.0 x10^3/uL (1.8-7.7) Lymphocytes # (Auto) 1.5 x10^3/uL (1.0-4.8) Monocytes # (Auto) 0.9 x10^3/uL (0.0-1.1) Eosinophils # (Auto) 0.2 x10^3/uL (0.0-0.7) Basophils # (Auto) 0.1 x10^3/uL (0.0-0.2) Sodium Level 138 mmol/L (136-145) Potassium Level 4.2 mmol/L (3.5-5.1) Chloride Level 111 mmol/L (98-107) Carbon Dioxide Level 15 mmol/L (21-32) Anion Gap 12 (6-14) Blood Urea Nitrogen 24 mg/dL (7-20) Creatinine 0.9 mg/dL (0.6-1.0) Estimated GFR (Cockcroft-Gault) 59.5 BUN/Creatinine Ratio 27 (6-20) Glucose Level 89 mg/dL (70-99) Calcium Level 7.6 mg/dL (8.5-10.1) Phosphorus Level 2.9 mg/dL (2.6-4.7) Magnesium Level 2.0 mg/dL (1.8-2.4) Total Bilirubin 0.2 mg/dL (0.2-1.0) Aspartate Amino Transf (AST/SGOT) 33 U/L (15-37) Alanine Aminotransferase (ALT/SGPT) 18 U/L (14-59) Alkaline Phosphatase 195 U/L (46-116) Total Protein 5.8 g/dL (6.4-8.2) Albumin 2.1 g/dL (3.4-5.0) Albumin/Globulin Ratio 0.6 (1.0-1.7) Microbiology 06/20/19 Urine Culture - Final, Complete 06/20/19 Urine Culture Result 1 (YOBANY) - Final, Complete Medications Current Medications Potassium Chloride/Sodium Chloride 1,000 ml @ 125 mls/hr Q8H IV Last administered on 06/20/19at 07:57; Start 06/19/19 at 22:15; Stop 06/20/19 at 08:50; Status DC Throat Lozenges (Chloraseptic) 1 spray PRN Q2HR PRN PO SORE THROAT, 2ND CHOICE; Start 06/19/19 at 22:15 Throat Lozenges (Cepacol Sore Throat Lozenge) 1 juan PRN Q2HRS PRN PO SORE THROAT, 1ST CHOICE; Start 06/19/19 at 22:15 Sodium Chloride 250 ml @ 250 mls/hr 1X ONCE IV Last administered on 06/20/19at 03:24; Start 06/20/19 at 02:45; Stop 06/20/19 at 03:45; Status DC Ondansetron HCl (Zofran) 4 mg PRN Q6HRS PRN IV NAUSEA/VOMITING Last administered on 07/01/19at 09:08; Start 06/20/19 at 08:00 Buspirone HCl (Buspar) 5 mg QID PO Last administered on 07/02/19at 13:27; Start 06/20/19 at 09:00 Donepezil HCl (Aricept) 10 mg DAILY PO Last administered on 07/02/19at 08:48; Start 06/20/19 at 09:00 Latanoprost (Xalatan) 1 drop QHS OU Last administered on 07/01/19at 21:47; Start 06/20/19 at 21:00 Levothyroxine Sodium (Synthroid) 50 mcg DAILYAC PO ; Start 06/20/19 at 09:00; Stop 06/22/19 at 15:39; Status DC Lorazepam (Ativan) 0.5 mg PRN Q4HRS PRN PO ANXIETY / AGITATION; Start 06/20/19 at 08:45 Potassium Chloride (Klor-Con) 10 meq DAILY PO Last administered on 07/02/19at 08:48; Start 06/20/19 at 09:00 Non-Formulary Medication (Melatonin ) 1 tab QHS PO ; Start 06/20/19 at 21:00; Status UNV Pantoprazole Sodium (Protonix) 40 mg DAILYAC PO ; Start 06/20/19 at 09:00; Stop 06/21/19 at 22:23; Status DC Ondansetron HCl (Zofran Odt) 4 mg PRN Q6HRS PRN PO NAUSEA/VOMITING Last administered on 07/02/19at 08:48; Start 06/20/19 at 09:00 Amino Acids/ Glycerin/ Electrolytes 1,000 ml @ 80 mls/hr [id number] IV Last administered on 06/26/19at 10:41; Start 06/20/19 at 09:00; Stop 06/26/19 at 21:59; Status DC Sodium Chloride 1,000 ml @ 1,000 mls/hr 1X ONCE IV Last administered on 06/20/19at 13:50; Start 06/20/19 at 13:30; Stop 06/20/19 at 14:29; Status DC Methylprednisolone Sodium Succinate (SOLU-Medrol 125MG VIAL) 125 mg 1X ONCE IV Last administered on 06/21/19at 17:15; Start 06/21/19 at 18:00; Stop 06/21/19 at 18:01; Status DC Methylprednisolone Sodium Succinate (SOLU-Medrol 125MG VIAL) 125 mg 1X ONCE IV Last administered on 06/22/19at 01:38; Start 06/22/19 at 00:00; Stop 06/22/19 at 00:01; Status DC Methylprednisolone Sodium Succinate (SOLU-Medrol 125MG VIAL) 125 mg 1X ONCE IV Last administered on 06/22/19at 05:43; Start 06/22/19 at 06:00; Stop 06/22/19 at 06:01; Status DC Diphenhydramine HCl (Benadryl) 50 mg 1X ONCE IVP Last administered on 06/22/19at 07:46; Start 06/22/19 at 07:00; Stop 06/22/19 at 07:01; Status DC Sodium Chloride 500 ml @ 500 mls/hr 1X ONCE IV Last administered on 06/21/19at 15:38; Start 06/21/19 at 15:30; Stop 06/21/19 at 16:29; Status DC Levofloxacin (Levaquin) 250 mg DAILY06 PO ; Start 06/22/19 at 06:00; Stop 06/21/19 at 22:23; Status DC Levofloxacin/ Dextrose 50 ml @ 50 mls/hr Q24H IV ; Start 06/21/19 at 22:30; Stop 06/21/19 at 22:34; Status DC Pantoprazole Sodium (PROTONIX VIAL for IV PUSH) 40 mg DAILYAC IVP Last administered on 07/01/19at 05:45; Start 06/22/19 at 07:30; Stop 07/01/19 at 12:11; Status DC Levofloxacin/ Dextrose 50 ml @ 50 mls/hr Q24H IV Last administered on 06/22/19at 05:43; Start 06/22/19 at 06:00; Stop 06/22/19 at 13:57; Status DC Iohexol (Omnipaque 300 Mg/ml) 400 ml 1X ONCE PO ; Start 06/22/19 at 07:45; Stop 06/22/19 at 07:50; Status DC Info (CONTRAST GIVEN -- Rx MONITORING) 1 each PRN DAILY PRN MC SEE COMMENTS; Start 06/22/19 at 08:00; Stop 06/24/19 at 07:59; Status DC Sodium Chloride 1,000 ml @ 100 mls/hr 1X ONCE IV Last administered on 06/22/19at 11:40; Start 06/22/19 at 11:15; Stop 06/22/19 at 21:14; Status DC Levothyroxine Sodium 25 mcg/ Sodium Chloride 5 ml @ 100 mls/hr Q72H IVP Last administered on 06/29/19at 06:24; Start 06/26/19 at 06:00; Stop 07/01/19 at 12:10; Status DC Sodium Chloride 1,000 ml @ 100 mls/hr 1X ONCE IV Last administered on 06/23/19at 11:59; Start 06/23/19 at 11:45; Stop 06/23/19 at 21:44; Status DC Propofol 20 ml @ As Directed STK-MED ONCE IV ; Start 06/24/19 at 09:27; Stop at 09:28; Status DC Lidocaine HCl (Lidocaine Pf 2% Vial) 5 ml STK-MED ONCE .ROUTE ; Start 06/24/19 at 09:27; Stop 06/24/19 at 09:28; Status DC Rocuronium [place] (Zemuron) 50 mg STK-MED ONCE .ROUTE ; Start 06/24/19 at 09:28; Stop 06/24/19 at 09:28; Status DC Fentanyl Citrate (Fentanyl 2ml Vial) 100 mcg STK-MED ONCE .ROUTE ; Start 06/24/19 at 09:28; Stop 06/24/19 at 09:28; Status DC Cefazolin Sodium/ Dextrose 50 ml @ 100 mls/hr 1X PREOP PRN IV protocol Last administered on 06/24/19at 11:37; Start 06/24/19 at 06:00; Stop 06/24/19 at 15:00; Status DC Fentanyl Citrate (Fentanyl 2ml Vial) 25 mcg PRN Q5MIN PRN IV MILD PAIN 1-3 Last administered on 06/24/19at 13:48; Start 06/24/19 at 10:00; Stop 06/25/19 at 09:59; Status DC Fentanyl Citrate (Fentanyl 2ml Vial) 50 mcg PRN Q5MIN PRN IV MODERATE TO SEVERE PAIN Last administered on 06/24/19at 14:08; Start 06/24/19 at 10:00; Stop at 09:59; Status DC Morphine Sulfate (Morphine Sulfate) 1 mg PRN Q10MIN PRN IV SEVERE PAIN 7-10; Start 06/24/19 at 10:00; Stop 06/25/19 at 09:59; Status DC Ringer's Solution 1,000 ml @ 30 mls/hr Q24H IV ; Start 06/24/19 at 10:00; Stop 06/24/19 at 10:14; Status DC Hydromorphone HCl (Dilaudid) 0.5 mg PRN Q10MIN PRN IV SEV PAIN, Second choice; Start 06/24/19 at 10:00; Stop 06/25/19 at 09:59; Status DC Prochlorperazine Edisylate (Compazine) 5 mg PACU PRN PRN IV NAUSEA, MRX1 Last administered on 06/24/19at 13:27; Start 06/24/19 at 10:00; Stop 06/25/19 at 09:59; Status DC Sodium Chloride 1,000 ml @ 40 mls/hr Q24H IV Last administered on 06/24/19at 14:16; Start 06/24/19 at 10:15; Stop 06/27/19 at 10:52; Status DC Bupivacaine HCl/ Epinephrine Bitart (Sensorcain-Mpf Epi 0.5%-[id number]) 30 ml 1X ONCE INJ Last administered on 06/24/19at 12:53; Start 06/24/19 at 10:30; Stop 06/24/19 at 10:31; Status DC Desflurane (Suprane) 60 ml STK-MED ONCE IH ; Start 06/24/19 at 11:14; Stop 06/24/19 at 11:15; Status DC Ondansetron HCl (Zofran) 4 mg STK-MED ONCE .ROUTE ; Start 06/24/19 at 11:16; Stop 06/24/19 at 11:16; Status DC Dexamethasone Sodium Phosphate (Decadron) 4 mg STK-MED ONCE .ROUTE ; Start 06/24/19 at 11:17; Stop 06/24/19 at 11:17; Status DC Phenylephrine HCl (PHENYLEPHRINE in 0.9% NACL PF) 1 mg STK-MED ONCE IV ; Start 06/24/19 at 11:21; Stop 06/24/19 at 11:21; Status DC Sodium Chloride 1,000 ml @ 100 mls/hr 1X ONCE IV ; Start 06/24/19 at 11:30; Stop 06/24/19 at 21:29; Status DC Ephedrine Sulfate (ePHEDrine PF IN SALINE SYRINGE) 50 mg STK-MED ONCE IV ; Start 06/24/19 at 11:26; Stop 06/24/19 at 11:26; Status DC Ondansetron HCl (Zofran) 4 mg STK-MED ONCE .ROUTE ; Start 06/24/19 at 11:38; Stop 06/24/19 at 11:38; Status DC Neostigmine Methylsulfate (Neostigmine Methylsulfate) 5 mg STK-MED ONCE .ROUTE ; Start 06/24/19 at 11:39; Stop 06/24/19 at 11:39; Status DC Glycopyrrolate (Robinul) 1 mg STK-MED ONCE .ROUTE ; Start 06/24/19 at 11:39; Stop 06/24/19 at 11:39; Status DC Prochlorperazine Edisylate (Compazine) 10 mg STK-MED ONCE .ROUTE ; Start 06/24/19 at 12:59; Stop 06/24/19 at 13:00; Status DC Fentanyl Citrate (Fentanyl 2ml Vial) 100 mcg STK-MED ONCE .ROUTE ; Start 06/24/19 at 13:08; Stop 06/24/19 at 13:08; Status DC Sodium Chloride (Normal Saline Flush) 3 ml QSHIFT PRN IV AFTER MEDS AND BLOOD DRAWS; Start 06/24/19 at 13:15 Naloxone HCl (Narcan) 0.4 mg PRN Q2MIN PRN IV SEE INSTRUCTIONS; Start 06/24/19 at 13:15 Sodium Chloride 1,000 ml @ 25 mls/hr Q24H IV ; Start 06/24/19 at 13:14; Stop 06/25/19 at 11:05; Status DC Morphine Sulfate (Morphine Sulfate) 4 mg PRN Q4HRS PRN IV MODERATE TO SEVERE PAIN Last administered on 06/24/19at 20:50; Start 06/24/19 at 13:15; Stop 06/28/19 at 13:57; Status DC Sodium Chloride 1,000 ml @ 100 mls/hr 1X ONCE IV Last administered on 06/25/19at 11:04; Start 06/25/19 at 10:30; Stop 06/25/19 at 20:29; Status DC Info (Tpn Per Pharmacy) 1 each PRN DAILY PRN MC SEE COMMENTS Last administered on 07/02/19at 13:47; Start 06/26/19 at 11:15 Sodium Chloride 1,000 ml @ 100 mls/hr 1X ONCE IV Last administered on 06/26/19at 12:51; Start 06/26/19 at 11:15; Stop 06/26/19 at 21:14; Status DC Enoxaparin Sodium (Lovenox 30mg Syringe) 30 mg Q24H SQ Last administered on 06/28/19at 14:16; Start 06/26/19 at 14:00; Stop 06/28/19 at 14:32; Status DC Sodium Chloride 90 meq/Potassium Chloride 50 meq/ Potassium Phosphate 13.6 mmol/Magnesium Sulfate 10 meq/ Calcium Gluconate 10 meq/ Multivitamins 10 ml/Chromium/ Copper/Manganese/ Seleni/Zn 1 ml/ Total Parenteral Nutrition/Amino Acids/Dextrose/ Fat Emulsion Intravenous 1,200 ml @ 50 mls/hr TPN CONT IV Last administered on 06/26/19at 22:42; Start 06/26/19 at 22:00; Stop 06/27/19 at 21:59; Status DC Potassium Phosphate 13.6 mmol/Dextrose 104.5333 ml @ 52.267 m... 1X ONCE IV Last administered on 06/27/19at 14:23; Start 06/27/19 at 13:00; Stop 06/27/19 at 14:59; Status DC Sodium Chloride 90 meq/Potassium Chloride 50 meq/ Potassium Phosphate 17 mmol/ Magnesium Sulfate 10 meq/Calcium Gluconate 10 meq/ Multivitamins 10 ml/Chromium/ Copper/Manganese/ Seleni/Zn 1 ml/ Total Parenteral Nutrition/Amino Acids/Dextrose/ Fat Emulsion Intravenous 1,200 ml @ 50 mls/hr TPN CONT IV Last administered on 06/27/19at 22:00; Start 06/27/19 at 22:00; Stop 06/28/19 at 21:59; Status DC Morphine Sulfate (Morphine Sulfate) 3 mg PRN Q4HRS PRN IV MODERATE PAIN; Start 06/28/19 at 14:00 Morphine Sulfate (Morphine Sulfate) 2 mg PRN Q2HR PRN IV MILD PAIN 1-3 Last administered on 06/29/19at 08:44; Start 06/28/19 at 14:00 Morphine Sulfate (Morphine Sulfate) 4 mg PRN Q4HRS PRN IV SEVERE PAIN; Start 06/28/19 at 14:15 Sodium Chloride 80 meq/Sodium Phosphate 3 mmol/ Potassium Chloride 50 meq/ Potassium Phosphate 17 mmol/ Magnesium Sulfate 10 meq/ Multivitamins 10 ml/Chromium/ Copper/Manganese/ Seleni/Zn 1 ml/ Total Parenteral Nutrition/Amino Acids/Dextrose/ Fat Emulsion Intravenous 1,200 ml @ 50 mls/hr TPN CONT IV Last administered on 06/28/19at 22:14; Start 06/28/19 at 22:00; Stop 06/29/19 at 21:59; Status DC Enoxaparin Sodium (Lovenox 40mg Syringe) 40 mg Q24H SQ ; Start 06/29/19 at 14:00; Status Cancel Enoxaparin Sodium (Lovenox 30mg Syringe) 30 mg Q24H SQ Last administered on 07/02/19at 13:27; Start 06/29/19 at 14:00 Sodium Chloride 60 meq/Sodium Phosphate 13 mmol/ Potassium Chloride 40 meq/ Potassium Phosphate 17 mmol/ Magnesium Sulfate 10 meq/ Multivitamins 10 ml/Chromium/ Copper/Manganese/ Seleni/Zn 1 ml/ Total Parenteral Nutrition/Amino Acids/Dextrose/ Fat Emulsion Intravenous 1,200 ml @ 50 mls/hr TPN CONT IV Last administered on 06/29/19at 21:39; Start 06/29/19 at 22:00; Stop 06/30/19 at 21:59; Status DC Magnesium Sulfate 50 ml @ 25 mls/hr 1X ONCE IV Last administered on 06/30/19at 13:46; Start 06/30/19 at 13:00; Stop 06/30/19 at 14:59; Status DC Sodium Chloride 60 meq/Sodium Phosphate 13 mmol/ Potassium Chloride 20 meq/ Potassium Phosphate 17 mmol/ Magnesium Sulfate 10 meq/ Multivitamins 10 ml/Chromium/ Copper/Manganese/ Seleni/Zn 1 ml/ Total Parenteral Nutrition/Amino Acids/Dextrose/ Fat Emulsion Intravenous 1,200 ml @ 50 mls/hr TPN CONT IV Last administered on 06/30/19at 21:26; Start 06/30/19 at 22:00; Stop 07/01/19 at 21:59; Status DC Levothyroxine Sodium (Synthroid) 50 mcg DAILY06 PO Last administered on 07/02/19at 06:20; Start 07/02/19 at 06:00 Pantoprazole Sodium (Protonix) 40 mg DAILYAC PO Last administered on 07/02/19at 08:48; Start 07/02/19 at 07:30 Sodium Acetate 60 meq/Sodium Phosphate 13 mmol/ Potassium Chloride 20 meq/ Potassium Phosphate 17 mmol/ Magnesium Sulfate 10 meq/ Multivitamins 10 ml/Chromium/ Copper/Manganese/ Seleni/Zn 1 ml/ Total Parenteral Nutrition/Amino Acids/Dextrose/ Fat Emulsion Intravenous 1,200 ml @ 50 mls/hr TPN CONT IV Last administered on 07/01/19at 21:47; Start 07/01/19 at 22:00; Stop 07/02/19 at 21:59 Sodium Acetate 60 meq/Sodium Phosphate 13 mmol/ Potassium Acetate 20 meq/Potassium Phosphate 17 mmol/ Magnesium Sulfate 10 meq/ Multivitamins 10 ml/Chromium/ Copper/Manganese/ Seleni/Zn 1 ml/ Total Parenteral Nutrition/Amino Acids/Dextrose/ Fat Emulsion Intravenous 1,200 ml @ 50 mls/hr TPN CONT IV ; Start 07/02/19 at 22:00; Stop 07/03/19 at 21:59 Active Scripts Active Reported Aspirin 81 Mg Tab.chew 1 Tab PO DAILY Ultram (Tramadol Hcl) 50 Mg Tablet 50 Mg PO Q4HRS PRN Potassium Chloride 10 Meq Tab.sr.24h 10 Meq PO DAILY Namenda (Memantine Hcl) 10 Mg Tablet 10 Mg PO BID Zofran (Ondansetron Hcl) 4 Mg Tablet 1 Tab PO PRN Q6-8HRS Imodium A-D (Loperamide Hcl) 1 Mg/7.5 Ml Liquid 1 Mg PO PRN PRN Omeprazole 20 Mg Tablet.dr 1 Tab PO DAILY Acetaminophen 325 Mg Tablet 325 Mg PO Q4HRS Donepezil Hcl 10 Mg Tablet 1 Tab PO DAILY Xeloda (Capecitabine) 500 Mg Tablet 2,000 Mg PO Q12HR Buspirone Hcl 5 Mg Tablet 1 Tab PO QID Melatonin 3 Mg Tablet 1 Tab PO QHS Levothyroxine Sodium 50 Mcg Tablet 50 Mcg PO DAILYAC Cerefolin Nac Caplet (Lmfol Ca/Acetyl/Mb12/Algal Oil) 1 Each Tablet 1 Each PO DAILY Xalatan (Latanoprost) 2.5 Ml Drops 1 Drop EACHEYE QHS Magnesium Oxide 400 Mg Tablet 1 Tab PO TID Pepcid (Famotidine) 20 Mg Tablet 20 Mg PO DAILY Ativan (Lorazepam) 0.5 Mg Tablet 0.5 Mg PO Q4HRS PRN Vitals/I & O Vital Sign - Last 24 Hours 807/01/19 07/01/19 07/01/19 15:00 19:00 19:50 23:00 Temp 98.9 99.2 99.1 98.9 99.2 99.1 Pulse 80 85 84 Resp 18 18 18 B/P (MAP) 120/60 (80) 101/49 (66) 96/45 (62) Pulse Ox 96 94 95 O2 Delivery Room Air Room Air Room Air Room Air 07/02/19 07/02/19 07/02/19 07/02/19 03:00 07:00 07:10 11:00 Temp 99.1 99.1 98.9 99.1 99.1 98.9 Pulse 75 90 91 Resp 18 18 18 B/P (MAP) 90/44 (59) 85/54 (64) 89/46 (60) Pulse Ox 91 98 100 O2 Delivery Room Air Room Air Room Air Room Air Intake and Output 07/01/19 07/01/19 07/02/19 15:00 23:00 07:00 Intake Total 120 ml 220 ml 1320 ml Output Total 25 ml 150 ml Balance 95 ml 220 ml 1170 ml Nutrition Consultation Dietary Evaluation: Recommendations by RD: PPN/TPN Comments: continue with TPN until able to advance diet REC goal diet: regular , mech soft, thins due to usual diet at home. Expected Outcomes/Goals: to meet > 75% est nutr needs via po intake- not met, goal ongoing Malnutrition Findings: Muscle Mass (Severe): Severe Depletion Food and Nutrition Intake (Sev: <50% est energy req 5days Body Fat Depletion (Non Severe: Mod to Severe Weight Status: Underweight MADY FAUST MD Jul 02, 2019 14:04
[2019-07-02 15:00] VITALS: BP 102/46
--- NOTE | 2019-07-02 18:04 | NUR ---
Pt. vomited what appears to be undigested or unchewed food. Pt. still has a good appetite and continues to eat. Ensure shake given.
[2019-07-02 19:45] VITALS: BP 99/51
[2019-07-02] MEDS: LATANOPROST 0.005% OPHTH SOLUTION 2.5ML BOTTLE. OU SCH (20:20)
[2019-07-02] MEDS ORDERED: [UNRECOGNIZED DRUG - OTHER] IV SCH ×10 (22:00)
[2019-07-02] MEDS ORDERED: TOTAL PARENTERAL NUTRITION IV SCH ×10 (22:00)
[2019-07-02] MEDS ORDERED: DEXTROSE 70% IV SCH ×10 (22:00)
[2019-07-02] MEDS ORDERED: AMINO ACID IV SCH ×10 (22:00)
[2019-07-02 23:58] VITALS: BP 110/52
[2019-07-03 03:37] VITALS: BP 83/44
[2019-07-03] MEDS: PANTOPRAZOLE 40 MG TABLET.DR. PO SCH (05:23)
[2019-07-03] MEDS: LEVOTHYROXINE 50 MCG TABLET PO SCH (06:22)
[2019-07-03 06:39] LABS: CALCIUM 7.7 mg/dL (8.5-10.1); CREATININE 0.9 mg/dL (0.6-1.0); GFR 59.5; POTASSIUM 4.1 mmol/L (3.5-5.1)
[2019-07-03 06:50] LABS: BASO # 0.1 x10^3/uL (0.0-0.2); BASO % 1 % (0-3); EOS # 0.2 x10^3/uL (0.0-0.7); EOS % 3 % (0-3); HEMATOCRIT 21.8 % (36.0-47.0); HEMOGLOBIN 7.3 g/dL (12.0-15.5); LYMPH % 15 % (24-48); MEAN CORPUSCULAR HEMOGLOBIN 36 pg (25-35); MEAN CORPUSCULAR HGB CONC 33 g/dL (31-37); MEAN CORPUSCULAR VOLUME 107 fL (79-100); MONO # 0.8 x10^3/uL (0.0-1.1); MONO % 12 % (0-9); NEUT # 4.7 x10^3/uL (1.8-7.7); NEUT % 69 % (31-73); PLATELET COUNT 222 x10^3/uL (140-400); RED BLOOD COUNT 2.04 x10^6/uL (3.50-5.40); RED CELL DISTRIBUTION WIDTH 21.7 % (11.5-14.5); WHITE BLOOD COUNT 6.8 x10^3/uL (4.0-11.0)
[2019-07-03 07:00] VITALS: BP 119/54
[2019-07-03] MEDS: ONDANSETRON ODT 4 MG TAB.RAPDIS. PO PRN (08:57)
[2019-07-03] MEDS: DONEPEZIL HCL 10 MG TABLET. PO SCH (08:57)
[2019-07-03] MEDS: busPIRone 5 MG TABLET. PO SCH ×4 (08:57→21:00)
[2019-07-03] MEDS: POTASSIUM CHLORIDE 10 MEQ TABLET.ER. PO SCH (08:57)
[2019-07-03 11:00] VITALS: BP 106/43
--- NOTE | 2019-07-03 11:01 | PDOC ---
PROGRESS NOTES Subjective Subjective continued vomiting today, nausea Objective Objective Vital Signs Date Time Temp Pulse Resp B/P (MAP) Pulse Ox O2 Delivery O2 Flow Rate FiO2 07/03/19 07:20 Room Air 07/03/19 07:00 98.0 91 20 119/54 (75) 96 98.0 07/01/19 07:20 2.0 Intake and Output 07/03/19 07:00 Intake Total 360 ml Output Total 375 ml Balance -15 ml Intake Oral 360 ml Output Urine Total 250 ml Emesis 125 ml # Voids 4 # Bowel Movements 4 Physical Exam Abdomen: Soft Assessment Assessment Problems Medical Problems: (1) RUFINO (acute kidney injury) Status: Acute (2) Dehydration Status: Acute (3) Encephalopathy Status: Acute (4) Small bowel obstruction Status: Acute Plan Plan of Care will back off on diet, check KUB, ?ileus Comment Review of Relevant I have reviewed the following items lola (where applicable) has been applied. Labs Laboratory Tests Test 07/02/19 06:00 07/03/19 05:50 White Blood Count 8.7 x10^3/uL (4.0-11.0) 6.8 x10^3/uL (4.0-11.0) Red Blood Count 2.30 x10^6/uL (3.50-5.40) 2.04 x10^6/uL (3.50-5.40) Hemoglobin 8.3 g/dL (12.0-15.5) 7.3 g/dL (12.0-15.5) Hematocrit 24.5 % (36.0-47.0) 21.8 % (36.0-47.0) Mean Corpuscular Volume 107 fL (79-100) 107 fL (79-100) Mean Corpuscular Hemoglobin 36 pg (25-35) 36 pg (25-35) Mean Corpuscular Hemoglobin Concent 34 g/dL (31-37) 33 g/dL (31-37) Red Cell Distribution Width 21.9 % (11.5-14.5) 21.7 % (11.5-14.5) Platelet Count 234 x10^3/uL (140-400) 222 x10^3/uL (140-400) Neutrophils (%) (Auto) 70 % (31-73) 69 % (31-73) Lymphocytes (%) (Auto) 17 % (24-48) 15 % (24-48) Monocytes (%) (Auto) 10 % (0-9) 12 % (0-9) Eosinophils (%) (Auto) 3 % (0-3) 3 % (0-3) Basophils (%) (Auto) 1 % (0-3) 1 % (0-3) Neutrophils # (Auto) 6.0 x10^3/uL (1.8-7.7) 4.7 x10^3/uL (1.8-7.7) Lymphocytes # (Auto) 1.5 x10^3/uL (1.0-4.8) 1.0 x10^3/uL (1.0-4.8) Monocytes # (Auto) 0.9 x10^3/uL (0.0-1.1) 0.8 x10^3/uL (0.0-1.1) Eosinophils # (Auto) 0.2 x10^3/uL (0.0-0.7) 0.2 x10^3/uL (0.0-0.7) Basophils # (Auto) 0.1 x10^3/uL (0.0-0.2) 0.1 x10^3/uL (0.0-0.2) Sodium Level 138 mmol/L (136-145) 139 mmol/L (136-145) Potassium Level 4.2 mmol/L (3.5-5.1) 4.1 mmol/L (3.5-5.1) Chloride Level 111 mmol/L (98-107) 111 mmol/L (98-107) Carbon Dioxide Level 15 mmol/L (21-32) 17 mmol/L (21-32) Anion Gap 12 (6-14) 11 (6-14) Blood Urea Nitrogen 24 mg/dL (7-20) 27 mg/dL (7-20) Creatinine 0.9 mg/dL (0.6-1.0) 0.9 mg/dL (0.6-1.0) Estimated GFR (Cockcroft-Gault) 59.5 59.5 BUN/Creatinine Ratio 27 (6-20) Glucose Level 89 mg/dL (70-99) 104 mg/dL (70-99) Calcium Level 7.6 mg/dL (8.5-10.1) 7.7 mg/dL (8.5-10.1) Phosphorus Level 2.9 mg/dL (2.6-4.7) Magnesium Level 2.0 mg/dL (1.8-2.4) Total Bilirubin 0.2 mg/dL (0.2-1.0) Aspartate Amino Transf (AST/SGOT) 33 U/L (15-37) Alanine Aminotransferase (ALT/SGPT) 18 U/L (14-59) Alkaline Phosphatase 195 U/L (46-116) Total Protein 5.8 g/dL (6.4-8.2) Albumin 2.1 g/dL (3.4-5.0) Albumin/Globulin Ratio 0.6 (1.0-1.7) Laboratory Tests Test 07/03/19 05:50 White Blood Count 6.8 x10^3/uL (4.0-11.0) Red Blood Count 2.04 x10^6/uL (3.50-5.40) Hemoglobin 7.3 g/dL (12.0-15.5) Hematocrit 21.8 % (36.0-47.0) Mean Corpuscular Volume 107 fL (79-100) Mean Corpuscular Hemoglobin 36 pg (25-35) Mean Corpuscular Hemoglobin Concent 33 g/dL (31-37) Red Cell Distribution Width 21.7 % (11.5-14.5) Platelet Count 222 x10^3/uL (140-400) Neutrophils (%) (Auto) 69 % (31-73) Lymphocytes (%) (Auto) 15 % (24-48) Monocytes (%) (Auto) 12 % (0-9) Eosinophils (%) (Auto) 3 % (0-3) Basophils (%) (Auto) 1 % (0-3) Neutrophils # (Auto) 4.7 x10^3/uL (1.8-7.7) Lymphocytes # (Auto) 1.0 x10^3/uL (1.0-4.8) Monocytes # (Auto) 0.8 x10^3/uL (0.0-1.1) Eosinophils # (Auto) 0.2 x10^3/uL (0.0-0.7) Basophils # (Auto) 0.1 x10^3/uL (0.0-0.2) Sodium Level 139 mmol/L (136-145) Potassium Level 4.1 mmol/L (3.5-5.1) Chloride Level 111 mmol/L (98-107) Carbon Dioxide Level 17 mmol/L (21-32) Anion Gap 11 (6-14) Blood Urea Nitrogen 27 mg/dL (7-20) Creatinine 0.9 mg/dL (0.6-1.0) Estimated GFR (Cockcroft-Gault) 59.5 Glucose Level 104 mg/dL (70-99) Calcium Level 7.7 mg/dL (8.5-10.1) Microbiology 06/20/19 Urine Culture - Final, Complete 06/20/19 Urine Culture Result 1 (YOBANY) - Final, Complete Medications Current Medications Potassium Chloride/Sodium Chloride 1,000 ml @ 125 mls/hr Q8H IV Last administered on 06/20/19at 07:57; Start 06/19/19 at 22:15; Stop 06/20/19 at 08:50; Status DC Throat Lozenges (Chloraseptic) 1 spray PRN Q2HR PRN PO SORE THROAT, 2ND CHOICE; Start 06/19/19 at 22:15 Throat Lozenges (Cepacol Sore Throat Lozenge) 1 juan PRN Q2HRS PRN PO SORE THROAT, 1ST CHOICE; Start 06/19/19 at 22:15 Sodium Chloride 250 ml @ 250 mls/hr 1X ONCE IV Last administered on 06/20/19at 03:24; Start 06/20/19 at 02:45; Stop 06/20/19 at 03:45; Status DC Ondansetron HCl (Zofran) 4 mg PRN Q6HRS PRN IV NAUSEA/VOMITING Last administered on 07/01/19 09:08; Start 06/20/19 at 08:00 Buspirone HCl (Buspar) 5 mg QID PO Last administered on 07/03/19 08:59; Start 06/20/19 at 09:00 Donepezil HCl (Aricept) 10 mg DAILY PO Last administered on 07/03/19 08:59; Start 06/20/19 at 09:00 Latanoprost (Xalatan) 1 drop QHS OU Last administered on 07/02/19at 20:20; Start 06/20/19 at 21:00 Levothyroxine Sodium (Synthroid) 50 mcg DAILYAC PO ; Start 06/20/19 at 09:00; Stop 06/22/19 at 15:39; Status DC Lorazepam (Ativan) 0.5 mg PRN Q4HRS PRN PO ANXIETY / AGITATION; Start 06/20/19 at 08:45 Potassium Chloride (Klor-Con) 10 meq DAILY PO Last administered on 07/03/19at 08:59; Start 06/20/19 at 09:00 Non-Formulary Medication (Melatonin ) 1 tab QHS PO ; Start 06/20/19 at 21:00; Status UNV Pantoprazole Sodium (Protonix) 40 mg DAILYAC PO ; Start 06/20/19 at 09:00; Stop 06/21/19 at 22:23; Status DC Ondansetron HCl (Zofran Odt) 4 mg PRN Q6HRS PRN PO NAUSEA/VOMITING Last administered on 07/03/19at 08:59; Start 06/20/19 at 09:00 Amino Acids/ Glycerin/ Electrolytes 1,000 ml @ 80 mls/hr [id number] IV Last administered on 06/26/19at 10:41; Start 06/20/19 at 09:00; Stop 06/26/19 at 21:59; Status DC Sodium Chloride 1,000 ml @ 1,000 mls/hr 1X ONCE IV Last administered on 06/20/19at 13:50; Start 06/20/19 at 13:30; Stop 06/20/19 at 14:29; Status DC Methylprednisolone Sodium Succinate (SOLU-Medrol 125MG VIAL) 125 mg 1X ONCE IV Last administered on 06/21/19at 17:15; Start 06/21/19 at 18:00; Stop 06/21/19 at 18:01; Status DC Methylprednisolone Sodium Succinate (SOLU-Medrol 125MG VIAL) 125 mg 1X ONCE IV Last administered on 06/22/19at 01:38; Start 06/22/19 at 00:00; Stop 06/22/19 at 00:01; Status DC Methylprednisolone Sodium Succinate (SOLU-Medrol 125MG VIAL) 125 mg 1X ONCE IV Last administered on 06/22/19at 05:43; Start 06/22/19 at 06:00; Stop 06/22/19 at 06:01; Status DC Diphenhydramine HCl (Benadryl) 50 mg 1X ONCE IVP Last administered on 06/22/19at 07:46; Start 06/22/19 at 07:00; Stop 06/22/19 at 07:01; Status DC Sodium Chloride 500 ml @ 500 mls/hr 1X ONCE IV Last administered on 06/21/19at 15:38; Start 06/21/19 at 15:30; Stop 06/21/19 at 16:29; Status DC Levofloxacin (Levaquin) 250 mg DAILY06 PO ; Start 06/22/19 at 06:00; Stop 06/21/19 at 22:23; Status DC Levofloxacin/ Dextrose 50 ml @ 50 mls/hr Q24H IV ; Start 06/21/19 at 22:30; Stop 06/21/19 at 22:34; Status DC Pantoprazole Sodium (PROTONIX VIAL for IV PUSH) 40 mg DAILYAC IVP Last administered on 07/01/19at 05:45; Start 06/22/19 at 07:30; Stop 07/01/19 at 12:11; Status DC Levofloxacin/ Dextrose 50 ml @ 50 mls/hr Q24H IV Last administered on 06/22/19at 05:43; Start 06/22/19 at 06:00; Stop 06/22/19 at 13:57; Status DC Iohexol (Omnipaque 300 Mg/ml) 400 ml 1X ONCE PO ; Start 06/22/19 at 07:45; Stop 06/22/19 at 07:50; Status DC Info (CONTRAST GIVEN -- Rx MONITORING) 1 each PRN DAILY PRN MC SEE COMMENTS; Start 06/22/19 at 08:00; Stop 06/24/19 at 07:59; Status DC Sodium Chloride 1,000 ml @ 100 mls/hr 1X ONCE IV Last administered on 06/22/19at 11:40; Start 06/22/19 at 11:15; Stop 06/22/19 at 21:14; Status DC Levothyroxine Sodium 25 mcg/ Sodium Chloride 5 ml @ 100 mls/hr Q72H IVP Last administered on 06/29/19at 06:24; Start 06/26/19 at 06:00; Stop 07/01/19 at 12:10; Status DC Sodium Chloride 1,000 ml @ 100 mls/hr 1X ONCE IV Last administered on 06/23/19at 11:59; Start 06/23/19 at 11:45; Stop 06/23/19 at 21:44; Status DC Propofol 20 ml @ As Directed STK-MED ONCE IV ; Start 06/24/19 at 09:27; Stop 06/24/19 at 09:28; Status DC Lidocaine HCl (Lidocaine Pf 2% Vial) 5 ml STK-MED ONCE .ROUTE ; Start 06/24/19 at 09:27; Stop 06/24/19 at 09:28; Status DC Rocuronium [place] (Zemuron) 50 mg STK-MED ONCE .ROUTE ; Start 06/24/19 at 09:28; Stop 06/24/19 at 09:28; Status DC Fentanyl Citrate (Fentanyl 2ml Vial) 100 mcg STK-MED ONCE .ROUTE ; Start 06/24/19 at 09:28; Stop 06/24/19 at 09:28; Status DC Cefazolin Sodium/ Dextrose 50 ml @ 100 mls/hr 1X PREOP PRN IV protocol Last administered on 06/24/19at 11:37; Start 06/24/19 at 06:00; Stop 06/24/19 at 15:00; Status DC Fentanyl Citrate (Fentanyl 2ml Vial) 25 mcg PRN Q5MIN PRN IV MILD PAIN 1-3 Last administered on 06/24/19at 13:48; Start 06/24/19 at 10:00; Stop 06/25/19 at 09:59; Status DC Fentanyl Citrate (Fentanyl 2ml Vial) 50 mcg PRN Q5MIN PRN IV MODERATE TO SEVERE PAIN Last administered on 06/24/19at 14:08; Start 06/24/19 at 10:00; Stop 06/25/19 at 09:59; Status DC Morphine Sulfate (Morphine Sulfate) 1 mg PRN Q10MIN PRN IV SEVERE PAIN 7-10; Start 06/24/19 at 10:00; Stop 06/25/19 at 09:59; Status DC Ringer's Solution 1,000 ml @ 30 mls/hr Q24H IV ; Start 06/24/19 at 10:00; Stop 06/24/19 at 10:14; Status DC Hydromorphone HCl (Dilaudid) 0.5 mg PRN Q10MIN PRN IV SEV PAIN, Second choice; Start 06/24/19 at 10:00; Stop 06/25/19 at 09:59; Status DC Prochlorperazine Edisylate (Compazine) 5 mg PACU PRN PRN IV NAUSEA, MRX1 Last administered on 06/24/19at 13:27; Start 06/24/19 at 10:00; Stop 06/25/19 at 09:59; Status DC Sodium Chloride 1,000 ml @ 40 mls/hr Q24H IV Last administered on 06/24/19at 14:16; Start 06/24/19 at 10:15; Stop 06/27/19 at 10:52; Status DC Bupivacaine HCl/ Epinephrine Bitart (Sensorcain-Mpf Epi 0.5%-[id number]) 30 ml 1X ONCE INJ Last administered on 06/24/19at 12:53; Start 06/24/19 at 10:30; Stop 06/24/19 at 10:31; Status DC Desflurane (Suprane) 60 ml STK-MED ONCE IH ; Start 06/24/19 at 11:14; Stop 06/24/19 at 11:15; Status DC Ondansetron HCl (Zofran) 4 mg STK-MED ONCE .ROUTE ; Start 06/24/19 at 11:16; Stop 06/24/19 at 11:16; Status DC Dexamethasone Sodium Phosphate (Decadron) 4 mg STK-MED ONCE .ROUTE ; Start 06/24/19 at 11:17; Stop 06/24/19 at 11:17; Status DC Phenylephrine HCl (PHENYLEPHRINE in 0.9% NACL PF) 1 mg STK-MED ONCE IV ; Start 06/24/19 at 11:21; Stop 06/24/19 at 11:21; Status DC Sodium Chloride 1,000 ml @ 100 mls/hr 1X ONCE IV ; Start 06/24/19 at 11:30; Stop 06/24/19 at 21:29; Status DC Ephedrine Sulfate (ePHEDrine PF IN SALINE SYRINGE) 50 mg STK-MED ONCE IV ; Start 06/24/19 at 11:26; Stop 06/24/19 at 11:26; Status DC Ondansetron HCl (Zofran) 4 mg STK-MED ONCE .ROUTE ; Start 06/24/19 at 11:38; Stop 06/24/19 at 11:38; Status DC Neostigmine Methylsulfate (Neostigmine Methylsulfate) 5 mg STK-MED ONCE .ROUTE ; Start 06/24/19 at 11:39; Stop 06/24/19 at 11:39; Status DC Glycopyrrolate (Robinul) 1 mg STK-MED ONCE .ROUTE ; Start 06/24/19 at 11:39; Stop 06/24/19 at 11:39; Status DC Prochlorperazine Edisylate (Compazine) 10 mg STK-MED ONCE .ROUTE ; Start 06/24/19 at 12:59; Stop 06/24/19 at 13:00; Status DC Fentanyl Citrate (Fentanyl 2ml Vial) 100 mcg STK-MED ONCE .ROUTE ; Start 06/24/19 at 13:08; Stop 06/24/19 at 13:08; Status DC Sodium Chloride (Normal Saline Flush) 3 ml QSHIFT PRN IV AFTER MEDS AND BLOOD DRAWS; Start 06/24/19 at 13:15 Naloxone HCl (Narcan) 0.4 mg PRN Q2MIN PRN IV SEE INSTRUCTIONS; Start 06/24/19 at 13:15 Sodium Chloride 1,000 ml @ 25 mls/hr Q24H IV ; Start 06/24/19 at 13:14; Stop 06/25/19 at 11:05; Status DC Morphine Sulfate (Morphine Sulfate) 4 mg PRN Q4HRS PRN IV MODERATE TO SEVERE PAIN Last administered on 06/24/19at 20:50; Start 06/24/19 at 13:15; Stop 06/28/19 at 13:57; Status DC Sodium Chloride 1,000 ml @ 100 mls/hr 1X ONCE IV Last administered on 06/25/19at 11:04; Start 06/25/19 at 10:30; Stop 06/25/19 at 20:29; Status DC Info (Tpn Per Pharmacy) 1 each PRN DAILY PRN MC SEE COMMENTS Last administered on 07/02/19at 13:47; Start 06/26/19 at 11:15 Sodium Chloride 1,000 ml @ 100 mls/hr 1X ONCE IV Last administered on 06/26/19at 12:51; Start 06/26/19 at 11:15; Stop 06/26/19 at 21:14; Status DC Enoxaparin Sodium (Lovenox 30mg Syringe) 30 mg Q24H SQ Last administered on 06/28/19at 14:16; Start 06/26/19 at 14:00; Stop 06/28/19 at 14:32; Status DC Sodium Chloride 90 meq/Potassium Chloride 50 meq/ Potassium Phosphate 13.6 mmol/Magnesium Sulfate 10 meq/ Calcium Gluconate 10 meq/ Multivitamins 10 ml/Chromium/ Copper/Manganese/ Seleni/Zn 1 ml/ Total Parenteral Nutrition/Amino Acids/Dextrose/ Fat Emulsion Intravenous 1,200 ml @ 50 mls/hr TPN CONT IV Last administered on 06/26/19at 22:42; Start 06/26/19 at 22:00; Stop 06/27/19 at 21:59; Status DC Potassium Phosphate 13.6 mmol/Dextrose 104.5333 ml @ 52.267 m... 1X ONCE IV Last administered on 06/27/19at 14:23; Start 06/27/19 at 13:00; Stop 06/27/19 at 14:59; Status DC Sodium Chloride 90 meq/Potassium Chloride 50 meq/ Potassium Phosphate 17 mmol/ Magnesium Sulfate 10 meq/Calcium Gluconate 10 meq/ Multivitamins 10 ml/Chromium/ Copper/Manganese/ Seleni/Zn 1 ml/ Total Parenteral Nutrition/Amino Acids/Dextrose/ Fat Emulsion Intravenous 1,200 ml @ 50 mls/hr TPN CONT IV Last administered on 06/27/19at 22:00; Start 06/27/19 at 22:00; Stop 06/28/19 at 21:59; Status DC Morphine Sulfate (Morphine Sulfate) 3 mg PRN Q4HRS PRN IV MODERATE PAIN; Start 06/28/19 at 14:00 Morphine Sulfate (Morphine Sulfate) 2 mg PRN Q2HR PRN IV MILD PAIN 1-3 Last administered on 06/29/19at 08:44; Start 06/28/19 at 14:00 Morphine Sulfate (Morphine Sulfate) 4 mg PRN Q4HRS PRN IV SEVERE PAIN; Start 06/28/19 at 14:15 Sodium Chloride 80 meq/Sodium Phosphate 3 mmol/ Potassium Chloride 50 meq/ Potassium Phosphate 17 mmol/ Magnesium Sulfate 10 meq/ Multivitamins 10 ml/Chromium/ Copper/Manganese/ Seleni/Zn 1 ml/ Total Parenteral Nutrition/Amino Acids/Dextrose/ Fat Emulsion Intravenous 1,200 ml @ 50 mls/hr TPN CONT IV Last administered on 06/28/19at 22:14; Start 06/28/19 at 22:00; Stop 06/29/19 at 21:59; Status DC Enoxaparin Sodium (Lovenox 40mg Syringe) 40 mg Q24H SQ ; Start 06/29/19 at 14:00; Status Cancel Enoxaparin Sodium (Lovenox 30mg Syringe) 30 mg Q24H SQ Last administered on 07/02/19at 13:27; Start 06/29/19 at 14:00 Sodium Chloride 60 meq/Sodium Phosphate 13 mmol/ Potassium Chloride 40 meq/ Potassium Phosphate 17 mmol/ Magnesium Sulfate 10 meq/ Multivitamins 10 ml/Chromium/ Copper/Manganese/ Seleni/Zn 1 ml/ Total Parenteral Nutrition/Amino Acids/Dextrose/ Fat Emulsion Intravenous 1,200 ml @ 50 mls/hr TPN CONT IV Last administered on 06/29/19at 21:39; Start 06/29/19 at 22:00; Stop 06/30/19 at 21:59; Status DC Magnesium Sulfate 50 ml @ 25 mls/hr 1X ONCE IV Last administered on 06/30/19at 13:46; Start 06/30/19 at 13:00; Stop 06/30/19 at 14:59; Status DC Sodium Chloride 60 meq/Sodium Phosphate 13 mmol/ Potassium Chloride 20 meq/ Potassium Phosphate 17 mmol/ Magnesium Sulfate 10 meq/ Multivitamins 10 ml/Chromium/ Copper/Manganese/ Seleni/Zn 1 ml/ Total Parenteral Nutrition/Amino Acids/Dextrose/ Fat Emulsion Intravenous 1,200 ml @ 50 mls/hr TPN CONT IV Last administered on 06/30/19at 21:26; Start 06/30/19 at 22:00; Stop 07/01/19 at 21:59; Status DC Levothyroxine Sodium (Synthroid) 50 mcg DAILY06 PO Last administered on 07/03/19at 06:22; Start 07/02/19 at 06:00 Pantoprazole Sodium (Protonix) 40 mg DAILYAC PO Last administered on 07/03/19at 05:24; Start 07/02/19 at 07:30 Sodium Acetate 60 meq/Sodium Phosphate 13 mmol/ Potassium Chloride 20 meq/ Potassium Phosphate 17 mmol/ Magnesium Sulfate 10 meq/ Multivitamins 10 ml/Chromium/ Copper/Manganese/ Seleni/Zn 1 ml/ Total Parenteral Nutrition/Amino Acids/Dextrose/ Fat Emulsion Intravenous 1,200 ml @ 50 mls/hr TPN CONT IV Last administered on 07/01/19at 21:47; Start 07/01/19 at 22:00; Stop 07/02/19 at 21:59; Status DC Sodium Acetate 60 meq/Sodium Phosphate 13 mmol/ Potassium Acetate 20 meq/Potassium Phosphate 17 mmol/ Magnesium Sulfate 10 meq/ Multivitamins 10 ml/Chromium/ Copper/Manganese/ Seleni/Zn 1 ml/ Total Parenteral Nutrition/Amino Acids/Dextrose/ Fat Emulsion Intravenous 1,200 ml @ 50 mls/hr TPN CONT IV Last administered on 07/02/19at 22:41; Start 07/02/19 at 22:00; Stop 07/03/19 at 21:59 Active Scripts Active Reported Aspirin 81 Mg Tab.chew 1 Tab PO DAILY Ultram (Tramadol Hcl) 50 Mg Tablet 50 Mg PO Q4HRS PRN Potassium Chloride 10 Meq Tab.sr.24h 10 Meq PO DAILY Namenda (Memantine Hcl) 10 Mg Tablet 10 Mg PO BID Zofran (Ondansetron Hcl) 4 Mg Tablet 1 Tab PO PRN Q6-8HRS Imodium A-D (Loperamide Hcl) 1 Mg/7.5 Ml Liquid 1 Mg PO PRN PRN Omeprazole 20 Mg Tablet.dr 1 Tab PO DAILY Acetaminophen 325 Mg Tablet 325 Mg PO Q4HRS Donepezil Hcl 10 Mg Tablet 1 Tab PO DAILY Xeloda (Capecitabine) 500 Mg Tablet 2,000 Mg PO Q12HR Buspirone Hcl 5 Mg Tablet 1 Tab PO QID Melatonin 3 Mg Tablet 1 Tab PO QHS Levothyroxine Sodium 50 Mcg Tablet 50 Mcg PO DAILYAC Cerefolin Nac Caplet (Lmfol Ca/Acetyl/Mb12/Algal Oil) 1 Each Tablet 1 Each PO DAILY Xalatan (Latanoprost) 2.5 Ml Drops 1 Drop EACHEYE QHS Magnesium Oxide 400 Mg Tablet 1 Tab PO TID Pepcid (Famotidine) 20 Mg Tablet 20 Mg PO DAILY Ativan (Lorazepam) 0.5 Mg Tablet 0.5 Mg PO Q4HRS PRN Vitals/I & O Vital Sign - Last 24 Hours 07/02/19 07/02/19 07/02/19 07/02/19 15:00 19:45 20:00 23:58 Temp 99.0 98.2 98.4 99.0 98.2 98.4 Pulse 86 85 80 Resp 18 18 18 B/P (MAP) 102/46 (64) 99/51 (67) 110/52 (71) Pulse Ox 94 100 99 O2 Delivery Room Air Room Air Room Air Room Air 07/03/19 07/03/19 07/03/19 03:37 07:00 07:20 Temp 99.6 98.0 99.6 98.0 Pulse 94 91 Resp 18 20 B/P (MAP) 83/44 (57) 119/54 (75) Pulse Ox 100 96 O2 Delivery Room Air Room Air Room Air Intake and Output 07/02/19 07/02/19 07/03/19 15:00 23:00 07:00 Intake Total 360 ml Output Total 25 ml 350 ml Balance -25 ml -350 ml 360 ml Nutrition Consultation Dietary Evaluation: Recommendations by RD: PPN/TPN Comments: continue with TPN until able to advance diet REC goal diet: regular , mech soft, thins due to usual diet at home. Expected Outcomes/Goals: to meet > 75% est nutr needs via po intake- not met, goal ongoing Malnutrition Findings: Muscle Mass (Severe): Severe Depletion Food and Nutrition Intake (Sev: <50% est energy req 5days Body Fat Depletion (Non Severe: Mod to Severe Weight Status: Underweight MADY FAUST MD Jul 03, 2019 11:01
--- NOTE | 2019-07-03 11:36 | PDOC ---
PROGRESS NOTES Chief Complaint Chief Complaint impression acute abd pain, IMPROVING SLOWLY, JOSE A LIQUIDS, soft diet vomiting after lunch 07/03 small bowel obstruction, lactate elevated from this metastatic breast cancer malnutrition, severe protein malnutrition acute on chronic renal failure, vasomotor, cognitive decline, dementia Hx, chronic Small-bowel obstruction secondary to a fibrous adhesion. small bowel segmental resection: - Central segmental hemorrhagic infarction with stricture. - Proximal and distal margins of resection viable. 06/24 kub Grossly unchanged appearance of the abdomen including dilated loops of central small bowel containing dilute enteric contrast. moderate fall risk macrocytic anemia increase activity SOFT DIET, AAT snf bed soon mvi folic acid .8mg po daily b12 1000mcg po daily Past Medical History Cardiovascular: HTN CENTRAL NERVOUS SYSTEM: Dementia Musculoskeletal: Osteoarthritis Endocrine: Hypothyroidism Past Surgical History Past Surgical History: Colon Resection, Other (port placement) Family History Family History: No Significant Social History Smoke: No ALCOHOL: none 28 min pt exam, chart review, > 50% of time spent with exam, chart review, pt care coordination History of Present Illness History of Present Illness Dr. Mccoy, 06/24 ec-lap, , release small-bowel obstruction, small bowel r esection with primary anastomosis. renal funciton better still getting a lot of fluid out of NG pain is minimal, change to TPN as no flatus, and still needs NG Vitals Vitals Vital Signs Date Time Temp Pulse Resp B/P (MAP) Pulse Ox O2 Delivery O2 Flow Rate FiO2 07/03/19 07:20 Room Air 07/03/19 07:00 98.0 91 20 119/54 (75) 96 98.0 Physical Exam General: Alert, Oriented X3, Cooperative, No acute distress Heart: Regular rate, Normal S1, Normal S2 Lungs: Clear Abdomen: Normal bowel sounds, Soft, No tenderness Extremities: No clubbing, No cyanosis, No edema Skin: No breakdown, No significant lesion Labs LABS Laboratory Tests Test 07/03/19 05:50 White Blood Count 6.8 x10^3/uL (4.0-11.0) Red Blood Count 2.04 x10^6/uL (3.50-5.40) Hemoglobin 7.3 g/dL (12.0-15.5) Hematocrit 21.8 % (36.0-47.0) Mean Corpuscular Volume 107 fL (79-100) Mean Corpuscular Hemoglobin 36 pg (25-35) Mean Corpuscular Hemoglobin Concent 33 g/dL (31-37) Red Cell Distribution Width 21.7 % (11.5-14.5) Platelet Count 222 x10^3/uL (140-400) Neutrophils (%) (Auto) 69 % (31-73) Lymphocytes (%) (Auto) 15 % (24-48) Monocytes (%) (Auto) 12 % (0-9) Eosinophils (%) (Auto) 3 % (0-3) Basophils (%) (Auto) 1 % (0-3) Neutrophils # (Auto) 4.7 x10^3/uL (1.8-7.7) Lymphocytes # (Auto) 1.0 x10^3/uL (1.0-4.8) Monocytes # (Auto) 0.8 x10^3/uL (0.0-1.1) Eosinophils # (Auto) 0.2 x10^3/uL (0.0-0.7) Basophils # (Auto) 0.1 x10^3/uL (0.0-0.2) Sodium Level 139 mmol/L (136-145) Potassium Level 4.1 mmol/L (3.5-5.1) Chloride Level 111 mmol/L (98-107) Carbon Dioxide Level 17 mmol/L (21-32) Anion Gap 11 (6-14) Blood Urea Nitrogen 27 mg/dL (7-20) Creatinine 0.9 mg/dL (0.6-1.0) Estimated GFR (Cockcroft-Gault) 59.5 Glucose Level 104 mg/dL (70-99) Calcium Level 7.7 mg/dL (8.5-10.1) Assessment and Plan Assessmemt and Plan Problems Medical Problems: (1) RUFINO (acute kidney injury) Status: Acute (2) Dehydration Status: Acute (3) Encephalopathy Status: Acute (4) Small bowel obstruction Status: Acute * Private Care Other Prior Level of Function Information * PLOF 06/20/19: Pt lives at [facility]. Per facility, pt was independent with ADLs and independent with ambulation. Typically ambulated without AD, but would use a cane on community outings at times. Weight Bearing Status * Weight Bear as Tolerated Precautions * Abdominal Incision Other Precautions * Fall risk; NG to suction, log roll Level of Consciousness * Alert Oriented to: * Person * Situation Cognition Comments * WFL Follows Direction * Simple Neurological Deficits * None Behavior * Cooperative Safety/Judgement * Decreased Safety * Verbal Cues Required * Due to Medical Status * Due to Strength/ROM Defic * Due to Coordination Defic Communication * WFL Coordination * Gross motor cood. decr. Activity Tolerance * Fair - Activity Tolerance/ Vitals * O2 RA, no c/o distress. Occ nausea after eating. Sitting Balance * 3+ balances w/o UEs >30s. Standing Balance * 2 balances w/ both UEs Pain Score * 4 Pain Scale Type * Numeric Pain Location * Abdominal region Pain Quality * Aching Pain Intervention * Exercise * Positioning * Rest * Mobility Supine to Sit Assistance Required * Contact Guard Assist Bed Mobility Comments * Asst for trunk and LE's. Transfer Assistance Required * Contact Guard Assist Transfer Type * Sit to Stand Transfer Assistive Device * Roller Walker Transfer Comments * V/cing for hand placement. Ambulation Assistance Required * Contact Guard Assist Ambulation Assistive Device * Roller Walker Ambulation Distance * 50'x4 Gait Impairments * Flexed Posture * Slow Mary * Short Step Length Ambulation Comments * Pt with slow gait, and short step length.using RW. Other Information * Pt returned to and placed in recliner chair with LE's elevated. Call light and phone presented. Pt would bemefit from SNF as pt still has decr gross LE strength, decr bal and safety awareness. Pt is a fall risk. Testing considered to assess G code/modifier * [employer] Functional Outcomes Learning Preferences * One-on-One Instruction * Demonstration Problem List (body system elements) * Impaired fnctnl mobility * Strength * Balance * Age * Coordination * Knowledge-safe techniques Pt/caregiver agrees with plan of care/goals * Yes Patient condition at conclusion of therapy * Pt in chair * Call light in reach * Phone in reach * PtIn no apparent distress * Pt denies further needs * RN/BRAKE LINING CURER with patient Communicated Patient Care With (Name, Title) * Barbara SILVA Goal 1 - Bed Mobility Assistance Required * Independent Goal 1 Assessment * Appropriate - Continue Goal 2 - Transfers Assistance Required * Independent Goal 2 - Transfer Type * Sit to Stand Goal 2 Assessment * Appropriate - Continue Goal 3 - Ambulation Assistance Required * Independent Goal 3 - Ambulation Distance * 250' Goal 3 - Ambulation Device * Roller Walker Goal 3 Assessment * Appropriate - Continue Goal 5 * Pt indep with HEP. Goal 5 Assessment * Appropriate - Continue Treatment Plan * Therapeutic Exercise * Bed Mobility Training * Transfer training * Gait Training * Dynamic Balance Training Frequency of Treatment Expected * 10 visits/week Duration of Treatment Expected * 2 weeks Discharge Recommendations * Group Home Unit Discharge Recommendation - DME * Rolling Walker needed * in order to complete ADLs * and ambulation safely Discharge Recommendation Comments * TBD Comment Review of Relevant I have reviewed the following items lola (where applicable) has been applied. Labs Laboratory Tests Test 07/02/19 06:00 07/03/19 05:50 White Blood Count 8.7 x10^3/uL (4.0-11.0) 6.8 x10^3/uL (4.0-11.0) Red Blood Count 2.30 x10^6/uL (3.50-5.40) 2.04 x10^6/uL (3.50-5.40) Hemoglobin 8.3 g/dL (12.0-15.5) 7.3 g/dL (12.0-15.5) Hematocrit 24.5 % (36.0-47.0) 21.8 % (36.0-47.0) Mean Corpuscular Volume 107 fL (79-100) 107 fL (79-100) Mean Corpuscular Hemoglobin 36 pg (25-35) 36 pg (25-35) Mean Corpuscular Hemoglobin Concent 34 g/dL (31-37) 33 g/dL (31-37) Red Cell Distribution Width 21.9 % (11.5-14.5) 21.7 % (11.5-14.5) Platelet Count 234 x10^3/uL (140-400) 222 x10^3/uL (140-400) Neutrophils (%) (Auto) 70 % (31-73) 69 % (31-73) Lymphocytes (%) (Auto) 17 % (24-48) 15 % (24-48) Monocytes (%) (Auto) 10 % (0-9) 12 % (0-9) Eosinophils (%) (Auto) 3 % (0-3) 3 % (0-3) Basophils (%) (Auto) 1 % (0-3) 1 % (0-3) Neutrophils # (Auto) 6.0 x10^3/uL (1.8-7.7) 4.7 x10^3/uL (1.8-7.7) Lymphocytes # (Auto) 1.5 x10^3/uL (1.0-4.8) 1.0 x10^3/uL (1.0-4.8) Monocytes # (Auto) 0.9 x10^3/uL (0.0-1.1) 0.8 x10^3/uL (0.0-1.1) Eosinophils # (Auto) 0.2 x10^3/uL (0.0-0.7) 0.2 x10^3/uL (0.0-0.7) Basophils # (Auto) 0.1 x10^3/uL (0.0-0.2) 0.1 x10^3/uL (0.0-0.2) Sodium Level 138 mmol/L (136-145) 139 mmol/L (136-145) Potassium Level 4.2 mmol/L (3.5-5.1) 4.1 mmol/L (3.5-5.1) Chloride Level 111 mmol/L (98-107) 111 mmol/L (98-107) Carbon Dioxide Level 15 mmol/L (21-32) 17 mmol/L (21-32) Anion Gap 12 (6-14) 11 (6-14) Blood Urea Nitrogen 24 mg/dL (7-20) 27 mg/dL (7-20) Creatinine 0.9 mg/dL (0.6-1.0) 0.9 mg/dL (0.6-1.0) Estimated GFR (Cockcroft-Gault) 59.5 59.5 BUN/Creatinine Ratio 27 (6-20) Glucose Level 89 mg/dL (70-99) 104 mg/dL (70-99) Calcium Level 7.6 mg/dL (8.5-10.1) 7.7 mg/dL (8.5-10.1) Phosphorus Level 2.9 mg/dL (2.6-4.7) Magnesium Level 2.0 mg/dL (1.8-2.4) Total Bilirubin 0.2 mg/dL (0.2-1.0) Aspartate Amino Transf (AST/SGOT) 33 U/L (15-37) Alanine Aminotransferase (ALT/SGPT) 18 U/L (14-59) Alkaline Phosphatase 195 U/L (46-116) Total Protein 5.8 g/dL (6.4-8.2) Albumin 2.1 g/dL (3.4-5.0) Albumin/Globulin Ratio 0.6 (1.0-1.7) Laboratory Tests Test 07/03/19 05:50 White Blood Count 6.8 x10^3/uL (4.0-11.0) Red Blood Count 2.04 x10^6/uL (3.50-5.40) Hemoglobin 7.3 g/dL (12.0-15.5) Hematocrit 21.8 % (36.0-47.0) Mean Corpuscular Volume 107 fL (79-100) Mean Corpuscular Hemoglobin 36 pg (25-35) Mean Corpuscular Hemoglobin Concent 33 g/dL (31-37) Red Cell Distribution Width 21.7 % (11.5-14.5) Platelet Count 222 x10^3/uL (140-400) Neutrophils (%) (Auto) 69 % (31-73) Lymphocytes (%) (Auto) 15 % (24-48) Monocytes (%) (Auto) 12 % (0-9) Eosinophils (%) (Auto) 3 % (0-3) Basophils (%) (Auto) 1 % (0-3) Neutrophils # (Auto) 4.7 x10^3/uL (1.8-7.7) Lymphocytes # (Auto) 1.0 x10^3/uL (1.0-4.8) Monocytes # (Auto) 0.8 x10^3/uL (0.0-1.1) Eosinophils # (Auto) 0.2 x10^3/uL (0.0-0.7) Basophils # (Auto) 0.1 x10^3/uL (0.0-0.2) Sodium Level 139 mmol/L (136-145) Potassium Level 4.1 mmol/L (3.5-5.1) Chloride Level 111 mmol/L (98-107) Carbon Dioxide Level 17 mmol/L (21-32) Anion Gap 11 (6-14) Blood Urea Nitrogen 27 mg/dL (7-20) Creatinine 0.9 mg/dL (0.6-1.0) Estimated GFR (Cockcroft-Gault) 59.5 Glucose Level 104 mg/dL (70-99) Calcium Level 7.7 mg/dL (8.5-10.1) Microbiology 06/20/19 Urine Culture - Final, Complete 06/20/19 Urine Culture Result 1 (YOBANY) - Final, Complete Medications Current Medications Potassium Chloride/Sodium Chloride 1,000 ml @ 125 mls/hr Q8H IV Last admini stered on 06/20/19at 07:57; Start 06/19/19 at 22:15; Stop 06/20/19 at 08:50; Status DC Throat Lozenges (Chloraseptic) 1 spray PRN Q2HR PRN PO SORE THROAT, 2ND CHOICE; Start 06/19/19 at 22:15 Throat Lozenges (Cepacol Sore Throat Lozenge) 1 juan PRN Q2HRS PRN PO SORE THROAT, 1ST CHOICE; Start 06/19/19 at 22:15 Sodium Chloride 250 ml @ 250 mls/hr 1X ONCE IV Last administered on 06/20/19at 03:24; Start 06/20/19 at 02:45; Stop 06/20/19 at 03:45; Status DC Ondansetron HCl (Zofran) 4 mg PRN Q6HRS PRN IV NAUSEA/VOMITING Last administered on 07/01/19at 09:08; Start 06/20/19 at 08:00 Buspirone HCl (Buspar) 5 mg QID PO Last administered on 07/03/19at 08:59; Start 06/20/19 at 09:00 Donepezil HCl (Aricept) 10 mg DAILY PO Last administered on 07/03/19at 08:59; Start 06/20/19 at 09:00 Latanoprost (Xalatan) 1 drop QHS OU Last administered on 07/02/19at 20:20; Start 06/20/19 at 21:00 Levothyroxine Sodium (Synthroid) 50 mcg DAILYAC PO ; Start 06/20/19 at 09:00; Stop 06/22/19 at 15:39; Status DC Lorazepam (Ativan) 0.5 mg PRN Q4HRS PRN PO ANXIETY / AGITATION; Start 06/20/19 at 08:45 Potassium Chloride (Klor-Con) 10 meq DAILY PO Last administered on 07/03/19 08:59; Start 06/20/19 at 09:00 Non-Formulary Medication (Melatonin ) 1 tab QHS PO ; Start 06/20/19 at 21:00; Status UNV Pantoprazole Sodium (Protonix) 40 mg DAILYAC PO ; Start 06/20/19 at 09:00; Stop 06/21/19 at 22:23; Status DC Ondansetron HCl (Zofran Odt) 4 mg PRN Q6HRS PRN PO NAUSEA/VOMITING Last administered on 07/03/19 08:59; Start 06/20/19 at 09:00 Amino Acids/ Glycerin/ Electrolytes 1,000 ml @ 80 mls/hr [id number] IV Last administered on 06/26/19 10:41; Start 06/20/19 at 09:00; Stop 06/26/19 at 21:59; Status DC Sodium Chloride 1,000 ml @ 1,000 mls/hr 1X ONCE IV Last administered on 06/20/19 13:50; Start 06/20/19 at 13:30; Stop 06/20/19 at 14:29; Status DC Methylprednisolone Sodium Succinate (SOLU-Medrol 125MG VIAL) 125 mg 1X ONCE IV Last administered on 06/21/19 17:15; Start 06/21/19 at 18:00; Stop 06/21/19 at 18:01; Status DC Methylprednisolone Sodium Succinate (SOLU-Medrol 125MG VIAL) 125 mg 1X ONCE IV Last administered on 06/22/19 01:38; Start 06/22/19 at 00:00; Stop 06/22/19 at 00:01; Status DC Methylprednisolone Sodium Succinate (SOLU-Medrol 125MG VIAL) 125 mg 1X ONCE IV Last administered on 06/22/19 05:43; Start 06/22/19 at 06:00; Stop 06/22/19 at 06:01; Status DC Diphenhydramine HCl (Benadryl) 50 mg 1X ONCE IVP Last administered on 06/22/19 07:46; Start 06/22/19 at 07:00; Stop 06/22/19 at 07:01; Status DC Sodium Chloride 500 ml @ 500 mls/hr 1X ONCE IV Last administered on 06/21/19at 15:38; Start 06/21/19 at 15:30; Stop 06/21/19 at 16:29; Status DC Levofloxacin (Levaquin) 250 mg DAILY06 PO ; Start 06/22/19 at 06:00; Stop 06/21/19 at 22:23; Status DC Levofloxacin/ Dextrose 50 ml @ 50 mls/hr Q24H IV ; Start 06/21/19 at 22:30; Stop 06/21/19 at 22:34; Status DC Pantoprazole Sodium (PROTONIX VIAL for IV PUSH) 40 mg DAILYAC IVP Last administered on 07/01/19at 05:45; Start 06/22/19 at 07:30; Stop 07/01/19 at 12:11; Status DC Levofloxacin/ Dextrose 50 ml @ 50 mls/hr Q24H IV Last administered on 06/22/19at 05:43; Start 06/22/19 at 06:00; Stop 06/22/19 at 13:57; Status DC Iohexol (Omnipaque 300 Mg/ml) 400 ml 1X ONCE PO ; Start 06/22/19 at 07:45; Stop 06/22/19 at 07:50; Status DC Info (CONTRAST GIVEN -- Rx MONITORING) 1 each PRN DAILY PRN MC SEE COMMENTS; Start 06/22/19 at 08:00; Stop 06/24/19 at 07:59; Status DC Sodium Chloride 1,000 ml @ 100 mls/hr 1X ONCE IV Last administered on 06/22/19at 11:40; Start 06/22/19 at 11:15; Stop 06/22/19 at 21:14; Status DC Levothyroxine Sodium 25 mcg/ Sodium Chloride 5 ml @ 100 mls/hr Q72H IVP Last administered on 06/29/19at 06:24; Start 06/26/19 at 06:00; Stop 07/01/19 at 12:10; Status DC Sodium Chloride 1,000 ml @ 100 mls/hr 1X ONCE IV Last administered on 06/23/19at 11:59; Start 06/23/19 at 11:45; Stop 06/23/19 at 21:44; Status DC Propofol 20 ml @ As Directed STK-MED ONCE IV ; Start 06/24/19 at 09:27; Stop 06/24/19 at 09:28; Status DC Lidocaine HCl (Lidocaine Pf 2% Vial) 5 ml STK-MED ONCE .ROUTE ; Start 06/24/19 at 09:27; Stop 06/24/19 at 09:28; Status DC Rocuronium Inland (Zemuron) 50 mg STK-MED ONCE .ROUTE ; Start 06/24/19 at 09:28; Stop 06/24/19 at 09:28; Status DC Fentanyl Citrate (Fentanyl 2ml Vial) 100 mcg STK-MED ONCE .ROUTE ; Start 06/09 04/27 at 09:28; Stop 06/24/19 at 09:28; Status DC Cefazolin Sodium/ Dextrose 50 ml @ 100 mls/hr 1X PREOP PRN IV protocol Last administered on 06/24/19at 11:37; Start 06/24/19 at 06:00; Stop 06/24/19 at 15:00; Status DC Fentanyl Citrate (Fentanyl 2ml Vial) 25 mcg PRN Q5MIN PRN IV MILD PAIN 1-3 Last administered on 06/24/19at 13:48; Start 06/24/19 at 10:00; Stop 06/25/19 at 09:59; Status DC Fentanyl Citrate (Fentanyl 2ml Vial) 50 mcg PRN Q5MIN PRN IV MODERATE TO SEVERE PAIN Last administered on 06/24/19at 14:08; Start 06/24/19 at 10:00; Stop 06/25/19 at 09:59; Status DC Morphine Sulfate (Morphine Sulfate) 1 mg PRN Q10MIN PRN IV SEVERE PAIN 7-10; Start 06/24/19 at 10:00; Stop 06/25/19 at 09:59; Status DC Ringer's Solution 1,000 ml @ 30 mls/hr Q24H IV ; Start 06/24/19 at 10:00; Stop 06/24/19 at 10:14; Status DC Hydromorphone HCl (Dilaudid) 0.5 mg PRN Q10MIN PRN IV SEV PAIN, Second choice; Start 06/24/19 at 10:00; Stop 06/25/19 at 09:59; Status DC Prochlorperazine Edisylate (Compazine) 5 mg PACU PRN PRN IV NAUSEA, MRX1 Last administered on 06/24/19at 13:27; Start 06/24/19 at 10:00; Stop 06/25/19 at 09:59; Status DC Sodium Chloride 1,000 ml @ 40 mls/hr Q24H IV Last administered on 06/24/19at 14:16; Start 06/24/19 at 10:15; Stop 06/27/19 at 10:52; Status DC Bupivacaine HCl/ Epinephrine Bitart (Sensorcain-Mpf Epi 0.5%-[id number]) 30 ml 1X ONCE INJ Last administered on 06/24/19at 12:53; Start 06/24/19 at 10:30; Stop 06/24/19 at 10:31; Status DC Desflurane (Suprane) 60 ml STK-MED ONCE IH ; Start 06/24/19 at 11:14; Stop 06/24/19 at 11:15; Status DC Ondansetron HCl (Zofran) 4 mg STK-MED ONCE .ROUTE ; Start 06/24/19 at 11:16; Stop 06/24/19 at 11:16; Status DC Dexamethasone Sodium Phosphate (Decadron) 4 mg STK-MED ONCE .ROUTE ; Start 06/24/19 at 11:17; Stop 06/24/19 at 11:17; Status DC Phenylephrine HCl (PHENYLEPHRINE in 0.9% NACL PF) 1 mg STK-MED ONCE IV ; Start 06/24/19 at 11:21; Stop 06/24/19 at 11:21; Status DC Sodium Chloride 1,000 ml @ 100 mls/hr 1X ONCE IV ; Start 06/24/19 at 11:30; Stop 06/24/19 at 21:29; Status DC Ephedrine Sulfate (ePHEDrine PF IN SALINE SYRINGE) 50 mg STK-MED ONCE IV ; Start 06/24/19 at 11:26; Stop 06/24/19 at 11:26; Status DC Ondansetron HCl (Zofran) 4 mg STK-MED ONCE .ROUTE ; Start 06/24/19 at 11:38; Stop 06/24/19 at 11:38; Status DC Neostigmine Methylsulfate (Neostigmine Methylsulfate) 5 mg STK-MED ONCE .ROUTE ; Start 06/24/19 at 11:39; Stop 06/24/19 at 11:39; Status DC Glycopyrrolate (Robinul) 1 mg STK-MED ONCE .ROUTE ; Start 06/24/19 at 11:39; Stop 06/24/19 at 11:39; Status DC Prochlorperazine Edisylate (Compazine) 10 mg STK-MED ONCE .ROUTE ; Start 06/24/19 at 12:59; Stop 06/24/19 at 13:00; Status DC Fentanyl Citrate (Fentanyl 2ml Vial) 100 mcg STK-MED ONCE .ROUTE ; Start 06/24/19 at 13:08; Stop 06/24/19 at 13:08; Status DC Sodium Chloride (Normal Saline Flush) 3 ml QSHIFT PRN IV AFTER MEDS AND BLOOD DRAWS; Start 06/24/19 at 13:15 Naloxone HCl (Narcan) 0.4 mg PRN Q2MIN PRN IV SEE INSTRUCTIONS; Start 06/24/19 at 13:15 Sodium Chloride 1,000 ml @ 25 mls/hr Q24H IV ; Start 06/24/19 at 13:14; Stop 06/25/19 at 11:05; Status DC Morphine Sulfate (Morphine Sulfate) 4 mg PRN Q4HRS PRN IV MODERATE TO SEVERE PAIN Last administered on 06/24/19at 20:50; Start 06/24/19 at 13:15; Stop 06/28/19 at 13:57; Status DC Sodium Chloride 1,000 ml @ 100 mls/hr 1X ONCE IV Last administered on 06/25/19at 11:04; Start 06/25/19 at 10:30; Stop 06/25/19 at 20:29; Status DC Info (Tpn Per Pharmacy) 1 each PRN DAILY PRN MC SEE COMMENTS Last administered on 07/02/19at 13:47; Start 06/26/19 at 11:15 Sodium Chloride 1,000 ml @ 100 mls/hr 1X ONCE IV Last administered on 06/26/19at 12:51; Start 06/26/19 at 11:15; Stop 06/26/19 at 21:14; Status DC Enoxaparin Sodium (Lovenox 30mg Syringe) 30 mg Q24H SQ Last administered on 06/28/19at 14:16; Start 06/26/19 at 14:00; Stop 06/28/19 at 14:32; Status DC Sodium Chloride 90 meq/Potassium Chloride 50 meq/ Potassium Phosphate 13.6 mmol/Magnesium Sulfate 10 meq/ Calcium Gluconate 10 meq/ Multivitamins 10 ml/Chromium/ Copper/Manganese/ Seleni/Zn 1 ml/ Total Parenteral Nutrition/Amino Acids/Dextrose/ Fat Emulsion Intravenous 1,200 ml @ 50 mls/hr TPN CONT IV Last administered on 06/26/19at 22:42; Start 06/26/19 at 22:00; Stop 06/27/19 at 21:59; Status DC Potassium Phosphate 13.6 mmol/Dextrose 104.5333 ml @ 52.267 m... 1X ONCE IV Last administered on 06/27/19at 14:23; Start 06/27/19 at 13:00; Stop 06/27/19 at 14:59; Status DC Sodium Chloride 90 meq/Potassium Chloride 50 meq/ Potassium Phosphate 17 mmol/ Magnesium Sulfate 10 meq/Calcium Gluconate 10 meq/ Multivitamins 10 ml/Chromium/ Copper/Manganese/ Seleni/Zn 1 ml/ Total Parenteral Nutrition/Amino Acids/Dextrose/ Fat Emulsion Intravenous 1,200 ml @ 50 mls/hr TPN CONT IV Last administered on 06/27/19at 22:00; Start 06/27/19 at 22:00; Stop 06/28/19 at 21:59; Status DC Morphine Sulfate (Morphine Sulfate) 3 mg PRN Q4HRS PRN IV MODERATE PAIN; Start 06/28/19 at 14:00 Morphine Sulfate (Morphine Sulfate) 2 mg PRN Q2HR PRN IV MILD PAIN 1-3 Last administered on 06/29/19at 08:44; Start 06/28/19 at 14:00 Morphine Sulfate (Morphine Sulfate) 4 mg PRN Q4HRS PRN IV SEVERE PAIN; Start 06/28/19 at 14:15 Sodium Chloride 80 meq/Sodium Phosphate 3 mmol/ Potassium Chloride 50 meq/ Potassium Phosphate 17 mmol/ Magnesium Sulfate 10 meq/ Multivitamins 10 ml/Chromium/ Copper/Manganese/ Seleni/Zn 1 ml/ Total Parenteral Nutrition/Amino Acids/Dextrose/ Fat Emulsion Intravenous 1,200 ml @ 50 mls/hr TPN CONT IV Last administered on 06/28/19at 22:14; Start 06/28/19 at 22:00; Stop 06/29/19 at 21:59; Status DC Enoxaparin Sodium (Lovenox 40mg Syringe) 40 mg Q24H SQ ; Start 06/29/19 at 14:00; Status Cancel Enoxaparin Sodium (Lovenox 30mg Syringe) 30 mg Q24H SQ Last administered on 07/02/19at 13:27; Start 06/29/19 at 14:00 Sodium Chloride 60 meq/Sodium Phosphate 13 mmol/ Potassium Chloride 40 meq/ Potassium Phosphate 17 mmol/ Magnesium Sulfate 10 meq/ Multivitamins 10 ml/Chromium/ Copper/Manganese/ Seleni/Zn 1 ml/ Total Parenteral Nutrition/Amino Acids/Dextrose/ Fat Emulsion Intravenous 1,200 ml @ 50 mls/hr TPN CONT IV Last administered on 06/29/19at 21:39; Start 06/29/19 at 22:00; Stop 06/30/19 at 21:59; Status DC Magnesium Sulfate 50 ml @ 25 mls/hr 1X ONCE IV Last administered on 06/30/19at 13:46; Start 06/30/19 at 13:00; Stop 06/30/19 at 14:59; Status DC Sodium Chloride 60 meq/Sodium Phosphate 13 mmol/ Potassium Chloride 20 meq/ Potassium Phosphate 17 mmol/ Magnesium Sulfate 10 meq/ Multivitamins 10 ml/Chromium/ Copper/Manganese/ Seleni/Zn 1 ml/ Total Parenteral Nutrition/Amino Acids/Dextrose/ Fat Emulsion Intravenous 1,200 ml @ 50 mls/hr TPN CONT IV Last administered on 06/30/19at 21:26; Start 06/30/19 at 22:00; Stop 07/01/19 at 21:59; Status DC Levothyroxine Sodium (Synthroid) 50 mcg DAILY06 PO Last administered on 07/03/19at 06:22; Start 07/02/19 at 06:00 Pantoprazole Sodium (Protonix) 40 mg DAILYAC PO Last administered on 07/03/19at 05:24; Start 07/02/19 at 07:30 Sodium Acetate 60 meq/Sodium Phosphate 13 mmol/ Potassium Chloride 20 meq/ Potassium Phosphate 17 mmol/ Magnesium Sulfate 10 meq/ Multivitamins 10 ml/Chromium/ Copper/Manganese/ Seleni/Zn 1 ml/ Total Parenteral Nutrition/Amino Acids/Dextrose/ Fat Emulsion Intravenous 1,200 ml @ 50 mls/hr TPN CONT IV L ast administered on 07/01/19at 21:47; Start 07/01/19 at 22:00; Stop 07/02/19 at 21:59; Status DC Sodium Acetate 60 meq/Sodium Phosphate 13 mmol/ Potassium Acetate 20 meq/Potassium Phosphate 17 mmol/ Magnesium Sulfate 10 meq/ Multivitamins 10 ml/Chromium/ Copper/Manganese/ Seleni/Zn 1 ml/ Total Parenteral Nutrition/Amino Acids/Dextrose/ Fat Emulsion Intravenous 1,200 ml @ 50 mls/hr TPN CONT IV Last administered on 07/02/19at 22:41; Start 07/02/19 at 22:00; Stop 07/03/19 at 21:59 Active Scripts Active Reported Aspirin 81 Mg Tab.chew 1 Tab PO DAILY Ultram (Tramadol Hcl) 50 Mg Tablet 50 Mg PO Q4HRS PRN Potassium Chloride 10 Meq Tab.sr.24h 10 Meq PO DAILY Namenda (Memantine Hcl) 10 Mg Tablet 10 Mg PO BID Zofran (Ondansetron Hcl) 4 Mg Tablet 1 Tab PO PRN Q6-8HRS Imodium A-D (Loperamide Hcl) 1 Mg/7.5 Ml Liquid 1 Mg PO PRN PRN Omeprazole 20 Mg Tablet.dr 1 Tab PO DAILY Acetaminophen 325 Mg Tablet 325 Mg PO Q4HRS Donepezil Hcl 10 Mg Tablet 1 Tab PO DAILY Xeloda (Capecitabine) 500 Mg Tablet 2,000 Mg PO Q12HR Buspirone Hcl 5 Mg Tablet 1 Tab PO QID Melatonin 3 Mg Tablet 1 Tab PO QHS Levothyroxine Sodium 50 Mcg Tablet 50 Mcg PO DAILYAC Cerefolin Nac Caplet (Lmfol Ca/Acetyl/Mb12/Algal Oil) 1 Each Tablet 1 Each PO DAILY Xalatan (Latanoprost) 2.5 Ml Drops 1 Drop EACHEYE QHS Magnesium Oxide 400 Mg Tablet 1 Tab PO TID Pepcid (Famotidine) 20 Mg Tablet 20 Mg PO DAILY Ativan (Lorazepam) 0.5 Mg Tablet 0.5 Mg PO Q4HRS PRN Vitals/I & O Vital Sign - Last 24 Hours 07/02/19 07/02/19 07/02/19 07/02/19 15:00 19:45 20:00 23:58 Temp 99.0 98.2 98.4 99.0 98.2 98.4 Pulse 86 85 80 Resp 18 18 18 B/P (MAP) 102/46 (64) 99/51 (67) 110/52 (71) Pulse Ox 94 100 99 O2 Delivery Room Air Room Air Room Air Room Air 8/07/03/19 07/03/19 03:37 07:00 07:20 Temp 99.6 98.0 99.6 98.0 Pulse 94 91 Resp 18 20 B/P (MAP) 83/44 (57) 119/54 (75) Pulse Ox 100 96 O2 Delivery Room Air Room Air Room Air Intake and Output 07/02/19 07/02/19 07/03/19 14:59 22:59 06:59 Intake Total 360 ml Output Total 25 ml 350 ml Balance -25 ml -350 ml 360 ml Nutrition Consultation Dietary Evaluation: Recommendations by RD: PPN/TPN Comments: continue with TPN until able to advance diet REC goal diet: regular , mech soft, thins due to usual diet at home. Expected Outcomes/Goals: to meet > 75% est nutr needs via po intake- not met, goal ongoing Malnutrition Findings: Muscle Mass (Severe): Severe Depletion Food and Nutrition Intake (Sev: <50% est energy req 5days Body Fat Depletion (Non Severe: Mod to Severe Weight Status: Underweight MEHDI WARD MD Jul 03, 2019 11:36
--- NOTE | 2019-07-03 12:07 | RAD ---
EXAM: Abdomen acute complete. HISTORY: Vomiting. COMPARISON: 06/22/2019 FINDINGS: A frontal view of the chest and frontal upright and supine views of the abdomen are obtained. There is a suspected small right pleural effusion with lower lobe atelectasis or infiltrate. There is stable likely chronic interstitial prominence. There is stable elevation of the right hemidiaphragm. There is a left port catheter with the tip in the superior vena cava. There is basilar atelectasis or scarring. There are healed rib fractures. There is a healed right clavicle fracture. There is nonspecific air-filled bowel within the abdomen. There is no transition point to suggest obstruction. There is no free air. There is a bowel anastomosis within the right lateral abdomen. 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 IMPRESSION: 1. Suspected small right pleural effusion with lower lobe atelectasis or infiltrate. 2. Nonobstructive bowel gas pattern. Electronically signed by: Aspen Quinonez MD (07/03/2019 12:04 PM) [facility] [place]
[2019-07-03] MEDS: MULTIVITAMIN with MINERAL TABLET. PO SCH (12:13)
[2019-07-03] MEDS: CYANOCOBALAMIN (VITAMIN B-12) 1,000 MCG TABLET. PO SCH (12:13)
[2019-07-03] MEDS: FOLIC ACID 1 MG TABLET. PO SCH (12:13)
[2019-07-03] MEDS: TPN PER PHARMACY MC PRN (12:58)
--- NOTE | 2019-07-03 13:00 | NUR ---
Pharmacy TPN Dosing Note S: ROSA SCHREIBER is a 84 year old F Currently receiving Central Continuous TPN started 06/26/19 B:Pertinent PMH: SBO S/P RESECTION 06/24 Height: 5 feet, 6 inches Weight: 51.8 kg Current diet: soft diet LABS: Sodium: 139 Potassium: 4.1 Chloride: 111 Calcium: 7.7 Corrected Calcium: 9.22 Magnesium: 2 CO2: 17 SCr: 0.9 Glucose: 104 Albumin: 2.1 AST: 33 ALT: 18 TPN FORMULA: TPN TYPE: Central Continuous AMINO ACIDS: 60 gm DEXTROSE: 195 gm LIPIDS: 20 gm SODIUM ACETATE: 60 mEq SODIUM PHOSPHATE: 13 mmol POTASSIUM ACETATE: 20 mEq POTASSIUM PHOSPHATE: 17 mmol MAGNESIUM: 10 mEq MULTIPLE VITAMIN: 10 ml TRACE ELEMENTS: MTE 5 1 ml(s) TPN PLAN: Continue same. R: Continue TPN Will monitor electrolytes, glucose, and tolerance to TPN. Jenn Ceballos [facility], 07/03/19 1300
[2019-07-03] MEDS: ENOXAPARIN 30 MG/0.3 ML SYRINGE. SQ SCH (14:24)
[2019-07-03 15:00] VITALS: BP 110/49
[2019-07-03 19:25] VITALS: BP 111/49
[2019-07-03] MEDS: LATANOPROST 0.005% OPHTH SOLUTION 2.5ML BOTTLE. OU SCH (21:42)
[2019-07-03] MEDS ORDERED: [UNRECOGNIZED DRUG - OTHER] IV SCH ×10 (22:00)
[2019-07-03] MEDS ORDERED: TOTAL PARENTERAL NUTRITION IV SCH ×10 (22:00)
[2019-07-03] MEDS ORDERED: DEXTROSE 70% IV SCH ×10 (22:00)
[2019-07-03] MEDS ORDERED: AMINO ACID IV SCH ×10 (22:00)
[2019-07-03 23:07] VITALS: BP 105/63
[2019-07-04 03:29] VITALS: BP 102/50
[2019-07-04] MEDS: LEVOTHYROXINE 50 MCG TABLET PO SCH (06:00)
[2019-07-04 06:45] LABS: CALCIUM 7.8 mg/dL (8.5-10.1); CREATININE 0.9 mg/dL (0.6-1.0); GFR 59.5; MAGNESIUM 1.8 mg/dL (1.8-2.4); PHOSPHORUS 3.4 mg/dL (2.6-4.7); POTASSIUM 3.9 mmol/L (3.5-5.1)
[2019-07-04 07:00] VITALS: BP 113/52
[2019-07-04 07:41] LABS: BASO # 0.1 x10^3/uL (0.0-0.2); BASO % 1 % (0-3); EOS # 0.2 x10^3/uL (0.0-0.7); EOS % 3 % (0-3); HEMATOCRIT 23.1 % (36.0-47.0); HEMOGLOBIN 7.9 g/dL (12.0-15.5); LYMPH # 1.3 x10^3/uL (1.0-4.8); LYMPH % 20 % (24-48); MEAN CORPUSCULAR HEMOGLOBIN 36 pg (25-35); MEAN CORPUSCULAR HGB CONC 34 g/dL (31-37); MEAN CORPUSCULAR VOLUME 106 fL (79-100); MONO # 0.8 x10^3/uL (0.0-1.1); MONO % 12 % (0-9); NEUT # 4.2 x10^3/uL (1.8-7.7); NEUT % 64 % (31-73); PLATELET COUNT 249 x10^3/uL (140-400); RED BLOOD COUNT 2.17 x10^6/uL (3.50-5.40); RED CELL DISTRIBUTION WIDTH 21.4 % (11.5-14.5); WHITE BLOOD COUNT 6.6 x10^3/uL (4.0-11.0)
[2019-07-04] MEDS: PANTOPRAZOLE 40 MG TABLET.DR. PO SCH (07:44)
--- NOTE | 2019-07-04 09:01 | PDOC ---
MOLLY HURT SERVICE DESK SPECIALIST 07/04/19 0901: SURGICAL PROGRESS NOTE Subjective feels better hungry + flatus no n/v Vital Signs Vital Signs Date Time Temp Pulse Resp B/P (MAP) Pulse Ox O2 Delivery O2 Flow Rate FiO2 07/04/19 03:29 98.4 82 18 102/50 (67) 96 Room Air 98.4 I&O Intake and Output 07/04/19 06:59 Intake Total 180 ml Output Total 125 ml Balance 55 ml Intake Oral 180 ml Output Urine Total 100 ml Emesis 25 ml # Voids 3 # Bowel Movements 3 General: Alert, Oriented X3, Cooperative, No acute distress Abdomen: Soft, Other (ND, incision c/d/i, no erythema ) Labs Laboratory Tests Test 07/03/19 05:50 07/04/19 06:13 White Blood Count 6.8 x10^3/uL (4.0-11.0) 6.6 x10^3/uL (4.0-11.0) Red Blood Count 2.04 x10^6/uL (3.50-5.40) 2.17 x10^6/uL (3.50-5.40) Hemoglobin 7.3 g/dL (12.0-15.5) 7.9 g/dL (12.0-15.5) Hematocrit 21.8 % (36.0-47.0) 23.1 % (36.0-47.0) Mean Corpuscular Volume 107 fL (79-100) 106 fL (79-100) Mean Corpuscular Hemoglobin 36 pg (25-35) 36 pg (25-35) Mean Corpuscular Hemoglobin Concent 33 g/dL (31-37) 34 g/dL (31-37) Red Cell Distribution Width 21.7 % (11.5-14.5) 21.4 % (11.5-14.5) Platelet Count 222 x10^3/uL (140-400) 249 x10^3/uL (140-400) Neutrophils (%) (Auto) 69 % (31-73) 64 % (31-73) Lymphocytes (%) (Auto) 15 % (24-48) 20 % (24-48) Monocytes (%) (Auto) 12 % (0-9) 12 % (0-9) Eosinophils (%) (Auto) 3 % (0-3) 3 % (0-3) Basophils (%) (Auto) 1 % (0-3) 1 % (0-3) Neutrophils # (Auto) 4.7 x10^3/uL (1.8-7.7) 4.2 x10^3/uL (1.8-7.7) Lymphocytes # (Auto) 1.0 x10^3/uL (1.0-4.8) 1.3 x10^3/uL (1.0-4.8) Monocytes # (Auto) 0.8 x10^3/uL (0.0-1.1) 0.8 x10^3/uL (0.0-1.1) Eosinophils # (Auto) 0.2 x10^3/uL (0.0-0.7) 0.2 x10^3/uL (0.0-0.7) Basophils # (Auto) 0.1 x10^3/uL (0.0-0.2) 0.1 x10^3/uL (0.0-0.2) Sodium Level 139 mmol/L (136-145) 141 mmol/L (136-145) Potassium Level 4.1 mmol/L (3.5-5.1) 3.9 mmol/L (3.5-5.1) Chloride Level 111 mmol/L (98-107) 104 mmol/L (98-107) Carbon Dioxide Level 17 mmol/L (21-32) 21 mmol/L (21-32) Anion Gap 11 (6-14) 16 (6-14) Blood Urea Nitrogen 27 mg/dL (7-20) 23 mg/dL (7-20) Creatinine 0.9 mg/dL (0.6-1.0) 0.9 mg/dL (0.6-1.0) Estimated GFR (Cockcroft-Gault) 59.5 59.5 Glucose Level 104 mg/dL (70-99) 96 mg/dL (70-99) Calcium Level 7.7 mg/dL (8.5-10.1) 7.8 mg/dL (8.5-10.1) Phosphorus Level 3.4 mg/dL (2.6-4.7) Magnesium Level 1.8 mg/dL (1.8-2.4) Triglycerides Level 232 mg/dL (0-150) Laboratory Tests Test 07/04/19 06:13 White Blood Count 6.6 x10^3/uL (4.0-11.0) Red Blood Count 2.17 x10^6/uL (3.50-5.40) Hemoglobin 7.9 g/dL (12.0-15.5) Hematocrit 23.1 % (36.0-47.0) Mean Corpuscular Volume 106 fL (79-100) Mean Corpuscular Hemoglobin 36 pg (25-35) Mean Corpuscular Hemoglobin Concent 34 g/dL (31-37) Red Cell Distribution Width 21.4 % (11.5-14.5) Platelet Count 249 x10^3/uL (140-400) Neutrophils (%) (Auto) 64 % (31-73) Lymphocytes (%) (Auto) 20 % (24-48) Monocytes (%) (Auto) 12 % (0-9) Eosinophils (%) (Auto) 3 % (0-3) Basophils (%) (Auto) 1 % (0-3) Neutrophils # (Auto) 4.2 x10^3/uL (1.8-7.7) Lymphocytes # (Auto) 1.3 x10^3/uL (1.0-4.8) Monocytes # (Auto) 0.8 x10^3/uL (0.0-1.1) Eosinophils # (Auto) 0.2 x10^3/uL (0.0-0.7) Basophils # (Auto) 0.1 x10^3/uL (0.0-0.2) Sodium Level 141 mmol/L (136-145) Potassium Level 3.9 mmol/L (3.5-5.1) Chloride Level 104 mmol/L (98-107) Carbon Dioxide Level 21 mmol/L (21-32) Anion Gap 16 (6-14) Blood Urea Nitrogen 23 mg/dL (7-20) Creatinine 0.9 mg/dL (0.6-1.0) Estimated GFR (Cockcroft-Gault) 59.5 Glucose Level 96 mg/dL (70-99) Calcium Level 7.8 mg/dL (8.5-10.1) Phosphorus Level 3.4 mg/dL (2.6-4.7) Magnesium Level 1.8 mg/dL (1.8-2.4) Triglycerides Level 232 mg/dL (0-150) Problem List Problems Medical Problems: (1) RUFINO (acute kidney injury) Status: Acute (2) Dehydration Status: Acute (3) Encephalopathy Status: Acute (4) Small bowel obstruction Status: Acute Assessment/Plan s/p SBR start clears slowly HUSSEIN WEINER MD 07/04/19 1643: SURGICAL PROGRESS NOTE Assessment/Plan pt seen and examined up to bedside chair minimal pain per RN has had some blood per rectum Hb stable try clears monitor Hb BLUMOLLY Brandon SERVICE DESK SPECIALIST Jul 04, 2019 09:01 HUSSEIN WEINER MD Jul 04, 2019 16:43
[2019-07-04] MEDS: MULTIVITAMIN with MINERAL TABLET. PO SCH (09:30)
[2019-07-04] MEDS: POTASSIUM CHLORIDE 10 MEQ TABLET.ER. PO SCH (09:31)
[2019-07-04] MEDS: DONEPEZIL HCL 10 MG TABLET. PO SCH (09:31)
[2019-07-04] MEDS: FOLIC ACID 1 MG TABLET. PO SCH (09:31)
[2019-07-04] MEDS: busPIRone 5 MG TABLET. PO SCH ×4 (09:31→21:17)
[2019-07-04] MEDS: CYANOCOBALAMIN (VITAMIN B-12) 1,000 MCG TABLET. PO SCH (09:31)
[2019-07-04 11:00] VITALS: BP 120/57
--- NOTE | 2019-07-04 11:07 | NUR ---
SS following up with discharge planning. Pt is a LTC resident from [facility] and [facility] and is able to return when medically stable for discharge. PT/OT recommending long term unit. SS will continue to follow for discharge planning.
--- NOTE | 2019-07-04 11:17 | PDOC ---
PROGRESS NOTES Chief Complaint Chief Complaint impression acute abd pain, IMPROVING SLOWLY, JOSE A LIQUIDS, soft diet// vomiting after lunch 07/03 NPO OVERNIGHT small bowel obstruction, lactate elevated from this metastatic breast cancer malnutrition, severe protein malnutrition acute on chronic renal failure, vasomotor, cognitive decline, dementia Hx, chronic Small-bowel obstruction secondary to a fibrous adhesion. small bowel segmental resection: - Central segmental hemorrhagic infarction with stricture. - Proximal and distal margins of resection viable. 06/24 kub Grossly unchanged appearance of the abdomen including dilated loops of central small bowel containing dilute enteric contrast. moderate fall risk macrocytic anemia increase activity CLEARS DIET, AAT snf bed soon mvi folic acid .8mg po daily b12 1000mcg po daily Past Medical History Cardiovascular: HTN CENTRAL NERVOUS SYSTEM: Dementia Musculoskeletal: Osteoarthritis Endocrine: Hypothyroidism Past Surgical History Past Surgical History: Colon Resection, Other (port placement) Family History Family History: No Significant Social History Smoke: No ALCOHOL: none 26 min pt exam, chart review, > 50% of time spent with exam, chart review, pt care coordination History of Present Illness History of Present Illness Dr. Mccoy, 06/24 ec-lap, , release small-bowel obstruction, small bowel resection with primary anastomosis. renal funciton better still getting a lot of fluid out of NG pain is minimal, change to TPN as no flatus, and still needs NG Vitals Vitals Vital Signs Date Time Temp Pulse Resp B/P (MAP) Pulse Ox O2 Delivery O2 Flow Rate FiO2 07/04/19 11:00 98.0 79 14 120/57 (78) 97 Room Air 98.0 Physical Exam General: Alert, Oriented X3, Cooperative, No acute distress Heart: Regular rate, Normal S1, Normal S2 Lungs: Clear Abdomen: Normal bowel sounds, Soft, Other (ND, incision c/d/i, no erythema ) Extremities: No clubbing, No cyanosis, No edema Skin: No breakdown, No significant lesion Labs LABS Laboratory Tests Test 07/04/19 06:13 White Blood Count 6.6 x10^3/uL (4.0-11.0) Red Blood Count 2.17 x10^6/uL (3.50-5.40) Hemoglobin 7.9 g/dL (12.0-15.5) Hematocrit 23.1 % (36.0-47.0) Mean Corpuscular Volume 106 fL (79-100) Mean Corpuscular Hemoglobin 36 pg (25-35) Mean Corpuscular Hemoglobin Concent 34 g/dL (31-37) Red Cell Distribution Width 21.4 % (11.5-14.5) Platelet Count 249 x10^3/uL (140-400) Neutrophils (%) (Auto) 64 % (31-73) Lymphocytes (%) (Auto) 20 % (24-48) Monocytes (%) (Auto) 12 % (0-9) Eosinophils (%) (Auto) 3 % (0-3) Basophils (%) (Auto) 1 % (0-3) Neutrophils # (Auto) 4.2 x10^3/uL (1.8-7.7) Lymphocytes # (Auto) 1.3 x10^3/uL (1.0-4.8) Monocytes # (Auto) 0.8 x10^3/uL (0.0-1.1) Eosinophils # (Auto) 0.2 x10^3/uL (0.0-0.7) Basophils # (Auto) 0.1 x10^3/uL (0.0-0.2) Sodium Level 141 mmol/L (136-145) Potassium Level 3.9 mmol/L (3.5-5.1) Chloride Level 104 mmol/L (98-107) Carbon Dioxide Level 21 mmol/L (21-32) Anion Gap 16 (6-14) Blood Urea Nitrogen 23 mg/dL (7-20) Creatinine 0.9 mg/dL (0.6-1.0) Estimated GFR (Cockcroft-Gault) 59.5 Glucose Level 96 mg/dL (70-99) Calcium Level 7.8 mg/dL (8.5-10.1) Phosphorus Level 3.4 mg/dL (2.6-4.7) Magnesium Level 1.8 mg/dL (1.8-2.4) Triglycerides Level 232 mg/dL (0-150) Assessment and Plan Assessmemt and Plan Problems Medical Problems: (1) RUFINO (acute kidney injury) Status: Acute (2) Dehydration Status: Acute (3) Encephalopathy Status: Acute (4) Small bowel obstruction Status: Acute Comment Review of Relevant I have reviewed the following items lola (where applicable) has been applied. Labs Laboratory Tests Test 07/03/19 05:50 07/04/19 06:13 White Blood Count 6.8 x10^3/uL (4.0-11.0) 6.6 x10^3/uL (4.0-11.0) Red Blood Count 2.04 x10^6/uL (3.50-5.40) 2.17 x10^6/uL (3.50-5.40) Hemoglobin 7.3 g/dL (12.0-15.5) 7.9 g/dL (12.0-15.5) Hematocrit 21.8 % (36.0-47.0) 23.1 % (36.0-47.0) Mean Corpuscular Volume 107 fL (79-100) 106 fL (79-100) Mean Corpuscular Hemoglobin 36 pg (25-35) 36 pg (25-35) Mean Corpuscular Hemoglobin Concent 33 g/dL (31-37) 34 g/dL (31-37) Red Cell Distribution Width 21.7 % (11.5-14.5) 21.4 % (11.5-14.5) Platelet Count 222 x10^3/uL (140-400) 249 x10^3/uL (140-400) Neutrophils (%) (Auto) 69 % (31-73) 64 % (31-73) Lymphocytes (%) (Auto) 15 % (24-48) 20 % (24-48) Monocytes (%) (Auto) 12 % (0-9) 12 % (0-9) Eosinophils (%) (Auto) 3 % (0-3) 3 % (0-3) Basophils (%) (Auto) 1 % (0-3) 1 % (0-3) Neutrophils # (Auto) 4.7 x10^3/uL (1.8-7.7) 4.2 x10^3/uL (1.8-7.7) Lymphocytes # (Auto) 1.0 x10^3/uL (1.0-4.8) 1.3 x10^3/uL (1.0-4.8) Monocytes # (Auto) 0.8 x10^3/uL (0.0-1.1) 0.8 x10^3/uL (0.0-1.1) Eosinophils # (Auto) 0.2 x10^3/uL (0.0-0.7) 0.2 x10^3/uL (0.0-0.7) Basophils # (Auto) 0.1 x10^3/uL (0.0-0.2) 0.1 x10^3/uL (0.0-0.2) Sodium Level 139 mmol/L (136-145) 141 mmol/L (136-145) Potassium Level 4.1 mmol/L (3.5-5.1) 3.9 mmol/L (3.5-5.1) Chloride Level 111 mmol/L (98-107) 104 mmol/L (98-107) Carbon Dioxide Level 17 mmol/L (21-32) 21 mmol/L (21-32) Anion Gap 11 (6-14) 16 (6-14) Blood Urea Nitrogen 27 mg/dL (7-20) 23 mg/dL (7-20) Creatinine 0.9 mg/dL (0.6-1.0) 0.9 mg/dL (0.6-1.0) Estimated GFR (Cockcroft-Gault) 59.5 59.5 Glucose Level 104 mg/dL (70-99) 96 mg/dL (70-99) Calcium Level 7.7 mg/dL (8.5-10.1) 7.8 mg/dL (8.5-10.1) Phosphorus Level 3.4 mg/dL (2.6-4.7) Magnesium Level 1.8 mg/dL (1.8-2.4) Triglycerides Level 232 mg/dL (0-150) Laboratory Tests Test 07/04/19 06:13 White Blood Count 6.6 x10^3/uL (4.0-11.0) Red Blood Count 2.17 x10^6/uL (3.50-5.40) Hemoglobin 7.9 g/dL (12.0-15.5) Hematocrit 23.1 % (36.0-47.0) Mean Corpuscular Volume 106 fL (79-100) Mean Corpuscular Hemoglobin 36 pg (25-35) Mean Corpuscular Hemoglobin Concent 34 g/dL (31-37) Red Cell Distribution Width 21.4 % (11.5-14.5) Platelet Count 249 x10^3/uL (140-400) Neutrophils (%) (Auto) 64 % (31-73) Lymphocytes (%) (Auto) 20 % (24-48) Monocytes (%) (Auto) 12 % (0-9) Eosinophils (%) (Auto) 3 % (0-3) Basophils (%) (Auto) 1 % (0-3) Neutrophils # (Auto) 4.2 x10^3/uL (1.8-7.7) Lymphocytes # (Auto) 1.3 x10^3/uL (1.0-4.8) Monocytes # (Auto) 0.8 x10^3/uL (0.0-1.1) Eosinophils # (Auto) 0.2 x10^3/uL (0.0-0.7) Basophils # (Auto) 0.1 x10^3/uL (0.0-0.2) Sodium Level 141 mmol/L (136-145) Potassium Level 3.9 mmol/L (3.5-5.1) Chloride Level 104 mmol/L (98-107) Carbon Dioxide Level 21 mmol/L (21-32) Anion Gap 16 (6-14) Blood Urea Nitrogen 23 mg/dL (7-20) Creatinine 0.9 mg/dL (0.6-1.0) Estimated GFR (Cockcroft-Gault) 59.5 Glucose Level 96 mg/dL (70-99) Calcium Level 7.8 mg/dL (8.5-10.1) Phosphorus Level 3.4 mg/dL (2.6-4.7) Magnesium Level 1.8 mg/dL (1.8-2.4) Triglycerides Level 232 mg/dL (0-150) Microbiology 06/20/19 Urine Culture - Final, Complete 06/20/19 Urine Culture Result 1 (YOBANY) - Final, Complete Medications Current Medications Potassium Chloride/Sodium Chloride 1,000 ml @ 125 mls/hr Q8H IV Last administered on 06/20/19at 07:57; Start 06/19/19 at 22:15; Stop 06/20/19 at 08:5 0; Status DC Throat Lozenges (Chloraseptic) 1 spray PRN Q2HR PRN PO SORE THROAT, 2ND CHOICE; Start 06/19/19 at 22:15 Throat Lozenges (Cepacol Sore Throat Lozenge) 1 juan PRN Q2HRS PRN PO SORE THROAT, 1ST CHOICE; Start 06/19/19 at 22:15 Sodium Chloride 250 ml @ 250 mls/hr 1X ONCE IV Last administered on 06/20/19 03:24; Start 06/20/19 at 02:45; Stop 06/20/19 at 03:45; Status DC Ondansetron HCl (Zofran) 4 mg PRN Q6HRS PRN IV NAUSEA/VOMITING Last administered on 07/01/19 09:08; Start 06/20/19 at 08:00 Buspirone HCl (Buspar) 5 mg QID PO Last administered on 07/04/19 09:31; Start 06/20/19 at 09:00 Donepezil HCl (Aricept) 10 mg DAILY PO Last administered on 07/04/19 09:31; Start 06/20/19 at 09:00 Latanoprost (Xalatan) 1 drop QHS OU Last administered on 07/03/19 21:42; Start 06/20/19 at 21:00 Levothyroxine Sodium (Synthroid) 50 mcg DAILYAC PO ; Start 06/20/19 at 09:00; Stop 06/22/19 at 15:39; Status DC Lorazepam (Ativan) 0.5 mg PRN Q4HRS PRN PO ANXIETY / AGITATION; Start 06/20/19 at 08:45 Potassium Chloride (Klor-Con) 10 meq DAILY PO Last administered on 07/04/19 09:31; Start 06/20/19 at 09:00 Non-Formulary Medication (Melatonin ) 1 tab QHS PO ; Start 06/20/19 at 21:00; Status UNV Pantoprazole Sodium (Protonix) 40 mg DAILYAC PO ; Start 06/20/19 at 09:00; Stop 06/21/19 at 22:23; Status DC Ondansetron HCl (Zofran Odt) 4 mg PRN Q6HRS PRN PO NAUSEA/VOMITING Last administered on 07/03/19 08:59; Start 06/20/19 at 09:00 Amino Acids/ Glycerin/ Electrolytes 1,000 ml @ 80 mls/hr [id number] IV Last administered on 06/26/19at 10:41; Start 06/20/19 at 09:00; Stop 06/26/19 at 21:59; Status DC Sodium Chloride 1,000 ml @ 1,000 mls/hr 1X ONCE IV Last administered on 06/20/19at 13:50; Start 06/20/19 at 13:30; Stop 06/20/19 at 14:29; Status DC Methylprednisolone Sodium Succinate (SOLU-Medrol 125MG VIAL) 125 mg 1X ONCE IV Last administered on 06/21/19at 17:15; Start 06/21/19 at 18:00; Stop 06/21/19 at 18:01; Status DC Methylprednisolone Sodium Succinate (SOLU-Medrol 125MG VIAL) 125 mg 1X ONCE IV Last administered on 06/22/19at 01:38; Start 06/22/19 at 00:00; Stop 06/22/19 at 00:01; Status DC Methylprednisolone Sodium Succinate (SOLU-Medrol 125MG VIAL) 125 mg 1X ONCE IV Last administered on 06/22/19at 05:43; Start 06/22/19 at 06:00; Stop 06/22/19 at 06:01; Status DC Diphenhydramine HCl (Benadryl) 50 mg 1X ONCE IVP Last administered on 06/22/19at 07:46; Start 06/22/19 at 07:00; Stop 06/22/19 at 07:01; Status DC Sodium Chloride 500 ml @ 500 mls/hr 1X ONCE IV Last administered on 06/21/19at 15:38; Start 06/21/19 at 15:30; Stop 06/21/19 at 16:29; Status DC Levofloxacin (Levaquin) 250 mg DAILY06 PO ; Start 06/22/19 at 06:00; Stop 06/21/19 at 22:23; Status DC Levofloxacin/ Dextrose 50 ml @ 50 mls/hr Q24H IV ; Start 06/21/19 at 22:30; Stop 06/21/19 at 22:34; Status DC Pantoprazole Sodium (PROTONIX VIAL for IV PUSH) 40 mg DAILYAC IVP Last administered on 07/01/19at 05:45; Start 06/22/19 at 07:30; Stop 07/01/19 at 12:11; Status DC Levofloxacin/ Dextrose 50 ml @ 50 mls/hr Q24H IV Last administered on 06/22/19at 05:43; Start 06/22/19 at 06:00; Stop 06/22/19 at 13:57; Status DC Iohexol (Omnipaque 300 Mg/ml) 400 ml 1X ONCE PO ; Start 06/22/19 at 07:45; Stop 06/22/19 at 07:50; Status DC Info (CONTRAST GIVEN -- Rx MONITORING) 1 each PRN DAILY PRN MC SEE COMMENTS; Start 06/22/19 at 08:00; Stop 06/24/19 at 07:59; Status DC Sodium Chloride 1,000 ml @ 100 mls/hr 1X ONCE IV Last administered on 06/22/19at 11:40; Start 06/22/19 at 11:15; Stop 06/22/19 at 21:14; Status DC Levothyroxine Sodium 25 mcg/ Sodium Chloride 5 ml @ 100 mls/hr Q72H IVP Last administered on 06/29/19at 06:24; Start 06/26/19 at 06:00; Stop 07/01/19 at 12:10; Status DC Sodium Chloride 1,000 ml @ 100 mls/hr 1X ONCE IV Last administered on 06/23/19at 11:59; Start 06/23/19 at 11:45; Stop 06/23/19 at 21:44; Status DC Propofol 20 ml @ As Directed STK-MED ONCE IV ; Start 06/24/19 at 09:27; Stop 06/24/19 at 09:28; Status DC Lidocaine HCl (Lidocaine Pf 2% Vial) 5 ml STK-MED ONCE .ROUTE ; Start 06/24/19 at 09:27; Stop 06/24/19 at 09:28; Status DC Rocuronium [place] (Zemuron) 50 mg STK-MED ONCE .ROUTE ; Start 06/24/19 at 09:28; Stop 06/24/19 at 09:28; Status DC Fentanyl Citrate (Fentanyl 2ml Vial) 100 mcg STK-MED ONCE .ROUTE ; Start 06/24/19 at 09:28; Stop 06/24/19 at 09:28; Status DC Cefazolin Sodium/ Dextrose 50 ml @ 100 mls/hr 1X PREOP PRN IV protocol Last administered on 06/24/19at 11:37; Start 06/24/19 at 06:00; Stop 06/24/19 at 15:00; Status DC Fentanyl Citrate (Fentanyl 2ml Vial) 25 mcg PRN Q5MIN PRN IV MILD PAIN 1-3 Last administered on 06/24/19at 13:48; Start 06/24/19 at 10:00; Stop 06/25/19 at 09:59; Status DC Fentanyl Citrate (Fentanyl 2ml Vial) 50 mcg PRN Q5MIN PRN IV MODERATE TO SEVERE PAIN Last administered on 06/24/19at 14:08; Start 06/24/19 at 10:00; Stop 06/25/19 at 09:59; Status DC Morphine Sulfate (Morphine Sulfate) 1 mg PRN Q10MIN PRN IV SEVERE PAIN 7-10; Start 06/24/19 at 10:00; Stop 06/25/19 at 09:59; Status DC Ringer's Solution 1,000 ml @ 30 mls/hr Q24H IV ; Start 06/24/19 at 10:00; Stop 06/24/19 at 10:14; Status DC Hydromorphone HCl (Dilaudid) 0.5 mg PRN Q10MIN PRN IV SEV PAIN, Second choice; Start 06/24/19 at 10:00; Stop 06/25/19 at 09:59; Status DC Prochlorperazine Edisylate (Compazine) 5 mg PACU PRN PRN IV NAUSEA, MRX1 Last administered on 06/24/19at 13:27; Start 06/24/19 at 10:00; Stop 06/25/19 at 09:59; Status DC Sodium Chloride 1,000 ml @ 40 mls/hr Q24H IV Last administered on 06/24/19at 14:16; Start 06/24/19 at 10:15; Stop 06/27/19 at 10:52; Status DC Bupivacaine HCl/ Epinephrine Bitart (Sensorcain-Mpf Epi 0.5%-[id number]) 30 ml 1X ONCE INJ Last administered on 06/24/19at 12:53; Start 06/24/19 at 10:30; Stop 06/24/19 at 10:31; Status DC Desflurane (Suprane) 60 ml STK-MED ONCE IH ; Start 06/24/19 at 11:14; Stop 06/24/19 at 11:15; Status DC Ondansetron HCl (Zofran) 4 mg STK-MED ONCE .ROUTE ; Start 06/24/19 at 11:16; Stop 06/24/19 at 11:16; Status DC Dexamethasone Sodium Phosphate (Decadron) 4 mg STK-MED ONCE .ROUTE ; Start 06/24/19 at 11:17; Stop 06/24/19 at 11:17; Status DC Phenylephrine HCl (PHENYLEPHRINE in 0.9% NACL PF) 1 mg STK-MED ONCE IV ; Start 06/24/19 at 11:21; Stop 06/24/19 at 11:21; Status DC Sodium Chloride 1,000 ml @ 100 mls/hr 1X ONCE IV ; Start 06/24/19 at 11:30; Stop 06/24/19 at 21:29; Status DC Ephedrine Sulfate (ePHEDrine PF IN SALINE SYRINGE) 50 mg STK-MED ONCE IV ; Start 06/24/19 at 11:26; Stop 06/24/19 at 11:26; Status DC Ondansetron HCl (Zofran) 4 mg STK-MED ONCE .ROUTE ; Start 06/24/19 at 11:38; Stop 06/24/19 at 11:38; Status DC Neostigmine Methylsulfate (Neostigmine Methylsulfate) 5 mg STK-MED ONCE .ROUTE ; Start 06/24/19 at 11:39; Stop 06/24/19 at 11:39; Status DC Glycopyrrolate (Robinul) 1 mg STK-MED ONCE .ROUTE ; Start 06/24/19 at 11:39; Stop 06/24/19 at 11:39; Status DC Prochlorperazine Edisylate (Compazine) 10 mg STK-MED ONCE .ROUTE ; Start 06/24/19 at 12:59; Stop 06/24/19 at 13:00; Status DC Fentanyl Citrate (Fentanyl 2ml Vial) 100 mcg STK-MED ONCE .ROUTE ; Start 06/24/19 at 13:08; Stop 06/24/19 at 13:08; Status DC Sodium Chloride (Normal Saline Flush) 3 ml QSHIFT PRN IV AFTER MEDS AND BLOOD DRAWS; Start 06/24/19 at 13:15 Naloxone HCl (Narcan) 0.4 mg PRN Q2MIN PRN IV SEE INSTRUCTIONS; Start 06/24/19 at 13:15 Sodium Chloride 1,000 ml @ 25 mls/hr Q24H IV ; Start 06/24/19 at 13:14; Stop 06/25/19 at 11:05; Status DC Morphine Sulfate (Morphine Sulfate) 4 mg PRN Q4HRS PRN IV MODERATE TO SEVERE PAIN Last administered on 06/24/19at 20:50; Start 06/24/19 at 13:15; Stop 06/28/19 at 13:57; Status DC Sodium Chloride 1,000 ml @ 100 mls/hr 1X ONCE IV Last administered on 06/25/19at 11:04; Start 06/25/19 at 10:30; Stop 06/25/19 at 20:29; Status DC Info (Tpn Per Pharmacy) 1 each PRN DAILY PRN MC SEE COMMENTS Last administered on 07/03/19at 12:59; Start 06/26/19 at 11:15 Sodium Chloride 1,000 ml @ 100 mls/hr 1X ONCE IV Last administered on 06/09 06/27at 12:51; Start 06/26/19 at 11:15; Stop 06/26/19 at 21:14; Status DC Enoxaparin Sodium (Lovenox 30mg Syringe) 30 mg Q24H SQ Last administered on 06/28/19at 14:16; Start 06/26/19 at 14:00; Stop 06/28/19 at 14:32; Status DC Sodium Chloride 90 meq/Potassium Chloride 50 meq/ Potassium Phosphate 13.6 mmol/Magnesium Sulfate 10 meq/ Calcium Gluconate 10 meq/ Multivitamins 10 ml/Chromium/ Copper/Manganese/ Seleni/Zn 1 ml/ Total Parenteral Nutrition/Amino Acids/Dextrose/ Fat Emulsion Intravenous 1,200 ml @ 50 mls/hr TPN CONT IV Last administered on 06/26/19at 22:42; Start 06/26/19 at 22:00; Stop 06/27/19 at 21:59; Status DC Potassium Phosphate 13.6 mmol/Dextrose 104.5333 ml @ 52.267 m... 1X ONCE IV Last administered on 06/27/19at 14:23; Start 06/27/19 at 13:00; Stop 06/27/19 at 14:59; Status DC Sodium Chloride 90 meq/Potassium Chloride 50 meq/ Potassium Phosphate 17 mmol/ Magnesium Sulfate 10 meq/Calcium Gluconate 10 meq/ Multivitamins 10 ml/Chromium/ Copper/Manganese/ Seleni/Zn 1 ml/ Total Parenteral Nutrition/Amino Acids/Dextrose/ Fat Emulsion Intravenous 1,200 ml @ 50 mls/hr TPN CONT IV Last administered on 06/27/19at 22:00; Start 06/27/19 at 22:00; Stop 06/28/19 at 21:59; Status DC Morphine Sulfate (Morphine Sulfate) 3 mg PRN Q4HRS PRN IV MODERATE PAIN; Start 06/28/19 at 14:00 Morphine Sulfate (Morphine Sulfate) 2 mg PRN Q2HR PRN IV MILD PAIN 1-3 Last administered on 06/29/19at 08:44; Start 06/28/19 at 14:00 Morphine Sulfate (Morphine Sulfate) 4 mg PRN Q4HRS PRN IV SEVERE PAIN; Start 06/28/19 at 14:15 Sodium Chloride 80 meq/Sodium Phosphate 3 mmol/ Potassium Chloride 50 meq/ Potassium Phosphate 17 mmol/ Magnesium Sulfate 10 meq/ Multivitamins 10 ml/Chromium/ Copper/Manganese/ Seleni/Zn 1 ml/ Total Parenteral Nutrition/Amino Acids/Dextrose/ Fat Emulsion Intravenous 1,200 ml @ 50 mls/hr TPN CONT IV Last administered on 06/28/19at 22:14; Start 06/28/19 at 22:00; Stop 06/29/19 at 21:59; Status DC Enoxaparin Sodium (Lovenox 40mg Syringe) 40 mg Q24H SQ ; Start 06/29/19 at 14:00; Status Cancel Enoxaparin Sodium (Lovenox 30mg Syringe) 30 mg Q24H SQ Last administered on 07/03/19at 14:30; Start 06/29/19 at 14:00 Sodium Chloride 60 meq/Sodium Phosphate 13 mmol/ Potassium Chloride 40 meq/ Potassium Phosphate 17 mmol/ Magnesium Sulfate 10 meq/ Multivitamins 10 ml/Chromium/ Copper/Manganese/ Seleni/Zn 1 ml/ Total Parenteral Nutrition/Amino Acids/Dextrose/ Fat Emulsion Intravenous 1,200 ml @ 50 mls/hr TPN CONT IV Last administered on 06/29/19at 21:39; Start 06/29/19 at 22:00; Stop 06/30/19 at 21:59; Status DC Magnesium Sulfate 50 ml @ 25 mls/hr 1X ONCE IV Last administered on 06/30/19at 13:46; Start 06/30/19 at 13:00; Stop 06/30/19 at 14:59; Status DC Sodium Chloride 60 meq/Sodium Phosphate 13 mmol/ Potassium Chloride 20 meq/ Potassium Phosphate 17 mmol/ Magnesium Sulfate 10 meq/ Multivitamins 10 ml/Chromium/ Copper/Manganese/ Seleni/Zn 1 ml/ Total Parenteral Nutrition/Amino Acids/Dextrose/ Fat Emulsion Intravenous 1,200 ml @ 50 mls/hr TPN CONT IV Last administered on 06/30/19 21:26; Start 06/30/19 at 22:00; Stop 07/01/19 at 21:59; Status DC Levothyroxine Sodium (Synthroid) 50 mcg DAILY06 PO Last administered on 07/03/19 06:22; Start 07/02/19 at 06:00 Pantoprazole Sodium (Protonix) 40 mg DAILYAC PO Last administered on 07/04/19 07:44; Start 07/02/19 at 07:30 Sodium Acetate 60 meq/Sodium Phosphate 13 mmol/ Potassium Chloride 20 meq/ Potassium Phosphate 17 mmol/ Magnesium Sulfate 10 meq/ Multivitamins 10 ml/Chromium/ Copper/Manganese/ Seleni/Zn 1 ml/ Total Parenteral Nutrition/Amino Acids/Dextrose/ Fat Emulsion Intravenous 1,200 ml @ 50 mls/hr TPN CONT IV Last administered on 07/01/19at 21:47; Start 07/01/19 at 22:00; Stop 07/02/19 at 21:59; Status DC Sodium Acetate 60 meq/Sodium Phosphate 13 mmol/ Potassium Acetate 20 meq/Potassium Phosphate 17 mmol/ Magnesium Sulfate 10 meq/ Multivitamins 10 ml/Chromium/ Copper/Manganese/ Seleni/Zn 1 ml/ Total Parenteral Nutrition/Amino Acids/Dextrose/ Fat Emulsion Intravenous 1,200 ml @ 50 mls/hr TPN CONT IV Last administered on 07/02/19 22:41; Start 07/02/19 at 22:00; Stop 07/03/19 at 21:59; Status DC Multivitamins (Thera M Plus) 1 tab DAILY PO Last administered on 07/04/19 09:31; Start 07/03/19 at 12:00 Folic Acid (Folic Acid) 1 mg DAILY PO Last administered on 07/04/19 09:31; Start 07/03/19 at 12:00 Cyanocobalamin (Vitamin B-12) 1,000 mcg DAILY PO Last administered on 8/26/19at 09:31; Start 07/03/19 at 12:00 Sodium Acetate 60 meq/Sodium Phosphate 13 mmol/ Potassium Acetate 20 meq/Potassium Phosphate 17 mmol/ Magnesium Sulfate 10 meq/ Multivitamins 10 ml/Chromium/ Copper/Manganese/ Seleni/Zn 1 ml/ Total Parenteral Nutrition/Amino Acids/Dextrose/ Fat Emulsion Intravenous 1,200 ml @ 50 mls/hr TPN CONT IV Last administered on 07/03/19at 22:20; Start 07/03/19 at 22:00; Stop 07/04/19 at 21:59 Active Scripts Active Reported Aspirin 81 Mg Tab.chew 1 Tab PO DAILY Ultram (Tramadol Hcl) 50 Mg Tablet 50 Mg PO Q4HRS PRN Potassium Chloride 10 Meq Tab.sr.24h 10 Meq PO DAILY Namenda (Memantine Hcl) 10 Mg Tablet 10 Mg PO BID Zofran (Ondansetron Hcl) 4 Mg Tablet 1 Tab PO PRN Q6-8HRS Imodium A-D (Loperamide Hcl) 1 Mg/7.5 Ml Liquid 1 Mg PO PRN PRN Omeprazole 20 Mg Tablet.dr 1 Tab PO DAILY Acetaminophen 325 Mg Tablet 325 Mg PO Q4HRS Donepezil Hcl 10 Mg Tablet 1 Tab PO DAILY Xeloda (Capecitabine) 500 Mg Tablet 2,000 Mg PO Q12HR Buspirone Hcl 5 Mg Tablet 1 Tab PO QID Melatonin 3 Mg Tablet 1 Tab PO QHS Levothyroxine Sodium 50 Mcg Tablet 50 Mcg PO DAILYAC Cerefolin Nac Caplet (Lmfol Ca/Acetyl/Mb12/Algal Oil) 1 Each Tablet 1 Each PO DAILY Xalatan (Latanoprost) 2.5 Ml Drops 1 Drop EACHEYE QHS Magnesium Oxide 400 Mg Tablet 1 Tab PO TID Pepcid (Famotidine) 20 Mg Tablet 20 Mg PO DAILY Ativan (Lorazepam) 0.5 Mg Tablet 0.5 Mg PO Q4HRS PRN Vitals/I & O Vital Sign - Last 24 Hours 07/03/19 07/03/19 07/03/19 07/03/19 15:00 19:25 20:00 23:07 Temp 97.8 98.6 98.3 97.8 98.6 98.3 Pulse 82 79 85 Resp 20 18 18 B/P (MAP) 110/49 (69) 111/49 (69) 105/63 (77) Pulse Ox 100 100 97 O2 Delivery Room Air Room Air Room Air Room Air 07/04/19 07/04/19 07/04/19 07/04/19 03:29 07:00 08:00 11:00 Temp 98.4 98.2 98.0 98.4 98.2 98.0 Pulse 82 73 79 Resp 18 16 14 B/P (MAP) 102/50 (67) 113/52 (72) 120/57 (78) Pulse Ox 96 99 97 O2 Delivery Room Air Room Air Room Air Room Air Intake and Output 07/03/19 07/03/19 07/04/19 15:00 23:00 07:00 Intake Total 180 ml 0 ml Output Total 125 ml Balance 55 ml 0 ml Nutrition Consultation Dietary Evaluation: Recommendations by RD: PPN/TPN Comments: continue with TPN until able to advance diet REC goal diet: regular , mech soft, thins due to usual diet at home. Expected Outcomes/Goals: to meet > 75% est nutr needs via po intake- not met, goal ongoing Malnutrition Findings: Muscle Mass (Severe): Severe Depletion Food and Nutrition Intake (Sev: <50% est energy req 5days Body Fat Depletion (Non Severe: Mod to Severe Weight Status: Underweight MEHDI WARD MD Jul 04, 2019 11:17
[2019-07-04 11:26] LABS: HEMATOCRIT 25.6 % (36.0-47.0); HEMOGLOBIN 8.7 g/dL (12.0-15.5); RED BLOOD COUNT 2.38 x10^6/uL (3.50-5.40); RED CELL DISTRIBUTION WIDTH 21.4 % (11.5-14.5); WHITE BLOOD COUNT 7.3 x10^3/uL (4.0-11.0)
[2019-07-04] MEDS: ENOXAPARIN 30 MG/0.3 ML SYRINGE. SQ SCH (14:00)
[2019-07-04] MEDS: TPN PER PHARMACY MC PRN (14:54)
[2019-07-04 15:00] VITALS: BP 121/59
--- NOTE | 2019-07-04 15:28 | NUR ---
1400 dose Lovenox held d/t bloody stools per Cami Mcelroy.
--- NOTE | 2019-07-04 18:07 | PDOC2 ---
CONSULT Date of Consult Date of Consult DATE: 07/04/19 TIME: 18:05 Reason for Consult Reason for Consult: Rectal bleed/hx colon cancer/recent SB resection Past Medical History Cardiovascular: HTN CENTRAL NERVOUS SYSTEM: Dementia Musculoskeletal: Osteoarthritis Infectious disease: No pertinent hx ENT: No pertinent hx Renal/: No pertinent hx Endocrine: No pertinent hx, Hypothyroidism Past Surgical History Past Surgical History: Colon Resection, Other (port placement) Family History Family History: No Significant Social History No ALCOHOL: none Current Problem List Problem List Problems Medical Problems: (1) RUFINO (acute kidney injury) Status: Acute (2) Dehydration Status: Acute (3) Encephalopathy Status: Acute (4) Small bowel obstruction Status: Acute Current Medications Current Medications Current Medications Potassium Chloride/Sodium Chloride 1,000 ml @ 125 mls/hr Q8H IV Last administered on 06/20/19at 07:57; Start 06/19/19 at 22:15; Stop 06/20/19 at 08:50; Status DC Throat Lozenges (Chloraseptic) 1 spray PRN Q2HR PRN PO SORE THROAT, 2ND CHOICE; Start 06/19/19 at 22:15 Throat Lozenges (Cepacol Sore Throat Lozenge) 1 juan PRN Q2HRS PRN PO SORE THROAT, 1ST CHOICE; Start 06/19/19 at 22:15 Sodium Chloride 250 ml @ 250 mls/hr 1X ONCE IV Last administered on 06/20/19at 03:24; Start 06/20/19 at 02:45; Stop 06/20/19 at 03:45; Status DC Ondansetron HCl (Zofran) 4 mg PRN Q6HRS PRN IV NAUSEA/VOMITING Last administered on 07/01/19at 09:08; Start 06/20/19 at 08:00 Buspirone HCl (Buspar) 5 mg QID PO Last administered on 07/04/19at 17:18; Start 06/20/19 at 09:00 Donepezil HCl (Aricept) 10 mg DAILY PO Last administered on 07/04/19at 09:31; Start 06/20/19 at 09:00 Latanoprost (Xalatan) 1 drop QHS OU Last administered on 07/03/19at 21:42; Start 06/20/19 at 21:00 Levothyroxine Sodium (Synthroid) 50 mcg DAILYAC PO ; Start 06/20/19 at 09:00; Stop 06/22/19 at 15:39; Status DC Lorazepam (Ativan) 0.5 mg PRN Q4HRS PRN PO ANXIETY / AGITATION; Start 06/20/19 at 08:45 Potassium Chloride (Klor-Con) 10 meq DAILY PO Last administered on 07/04/19at 09:31; Start 06/20/19 at 09:00 Non-Formulary Medication (Melatonin ) 1 tab QHS PO ; Start 06/20/19 at 21:00; Status UNV Pantoprazole Sodium (Protonix) 40 mg DAILYAC PO ; Start 06/20/19 at 09:00; Stop 06/21/19 at 22:23; Status DC Ondansetron HCl (Zofran Odt) 4 mg PRN Q6HRS PRN PO NAUSEA/VOMITING Last administered on 07/03/19at 08:59; Start 06/20/19 at 09:00 Amino Acids/ Glycerin/ Electrolytes 1,000 ml @ 80 mls/hr [id number] IV Last administered on 06/26/19at 10:41; Start 06/20/19 at 09:00; Stop 06/26/19 at 21:59; Status DC Sodium Chloride 1,000 ml @ 1,000 mls/hr 1X ONCE IV Last administered on 06/20/19at 13:50; Start 06/20/19 at 13:30; Stop 06/20/19 at 14:29; Status DC Methylprednisolone Sodium Succinate (SOLU-Medrol 125MG VIAL) 125 mg 1X ONCE IV Last administered on 06/21/19at 17:15; Start 06/21/19 at 18:00; Stop 06/21/19 at 18:01; Status DC Methylprednisolone Sodium Succinate (SOLU-Medrol 125MG VIAL) 125 mg 1X ONCE IV Last administered on 06/22/19at 01:38; Start 06/22/19 at 00:00; Stop 06/22/19 at 00:01; Status DC Methylprednisolone Sodium Succinate (SOLU-Medrol 125MG VIAL) 125 mg 1X ONCE IV Last administered on 06/22/19at 05:43; Start 06/22/19 at 06:00; Stop 06/22/19 at 06:01; Status DC Diphenhydramine HCl (Benadryl) 50 mg 1X ONCE IVP Last administered on 06/22/19at 07:46; Start 06/22/19 at 07:00; Stop 06/22/19 at 07:01; Status DC Sodium Chloride 500 ml @ 500 mls/hr 1X ONCE IV Last administered on 06/21/19at 15:38; Start 06/21/19 at 15:30; Stop 06/21/19 at 16:29; Status DC Levofloxacin (Levaquin) 250 mg DAILY06 PO ; Start 06/22/19 at 06:00; Stop 06/21/19 at 22:23; Status DC Levofloxacin/ Dextrose 50 ml @ 50 mls/hr Q24H IV ; Start 06/21/19 at 22:30; Stop 06/21/19 at 22:34; Status DC Pantoprazole Sodium (PROTONIX VIAL for IV PUSH) 40 mg DAILYAC IVP Last administered on 07/01/19at 05:45; Start 06/22/19 at 07:30; Stop 07/01/19 at 12:11; Status DC Levofloxacin/ Dextrose 50 ml @ 50 mls/hr Q24H IV Last administered on 06/22/19at 05:43; Start 06/22/19 at 06:00; Stop 06/22/19 at 13:57; Status DC Iohexol (Omnipaque 300 Mg/ml) 400 ml 1X ONCE PO ; Start 06/22/19 at 07:45; Stop 06/22/19 at 07:50; Status DC Info (CONTRAST GIVEN -- Rx MONITORING) 1 each PRN DAILY PRN MC SEE COMMENTS; Start 06/22/19 at 08:00; Stop 06/24/19 at 07:59; Status DC Sodium Chloride 1,000 ml @ 100 mls/hr 1X ONCE IV Last administered on 06/22/19at 11:40; Start 06/22/19 at 11:15; Stop 06/22/19 at 21:14; Status DC Levothyroxine Sodium 25 mcg/ Sodium Chloride 5 ml @ 100 mls/hr Q72H IVP Last administered on 06/29/19at 06:24; Start 06/26/19 at 06:00; Stop 07/01/19 at 12:10; Status DC Sodium Chloride 1,000 ml @ 100 mls/hr 1X ONCE IV Last administered on 06/23/19at 11:59; Start 06/23/19 at 11:45; Stop 06/23/19 at 21:44; Status DC Propofol 20 ml @ As Directed STK-MED ONCE IV ; Start 06/24/19 at 09:27; Stop 06/24/19 at 09:28; Status DC Lidocaine HCl (Lidocaine Pf 2% Vial) 5 ml STK-MED ONCE .ROUTE ; Start 06/24/19 at 09:27; Stop 06/24/19 at 09:28; Status DC Rocuronium [place] (Zemuron) 50 mg STK-MED ONCE .ROUTE ; Start 06/24/19 at 09:28; Stop 06/24/19 at 09:28; Status DC Fentanyl Citrate (Fentanyl 2ml Vial) 100 mcg STK-MED ONCE .ROUTE ; Start 06/24/19 at 09:28; Stop 06/24/19 at 09:28; Status DC Cefazolin Sodium/ Dextrose 50 ml @ 100 mls/hr 1X PREOP PRN IV protocol Last administered on 06/24/19at 11:37; Start 06/24/19 at 06:00; Stop 06/24/19 at 15:00; Status DC Fentanyl Citrate (Fentanyl 2ml Vial) 25 mcg PRN Q5MIN PRN IV MILD PAIN 1-3 Last administered on 06/24/19at 13:48; Start 06/24/19 at 10:00; Stop 06/25/19 at 09:59; Status DC Fentanyl Citrate (Fentanyl 2ml Vial) 50 mcg PRN Q5MIN PRN IV MODERATE TO SEVERE PAIN Last administered on 06/24/19at 14:08; Start 06/24/19 at 10:00; Stop 06/25/19 at 09:59; Status DC Morphine Sulfate (Morphine Sulfate) 1 mg PRN Q10MIN PRN IV SEVERE PAIN 7-10; Start 06/24/19 at 10:00; Stop 06/25/19 at 09:59; Status DC Ringer's Solution 1,000 ml @ 30 mls/hr Q24H IV ; Start 06/24/19 at 10:00; Stop 06/24/19 at 10:14; Status DC Hydromorphone HCl (Dilaudid) 0.5 mg PRN Q10MIN PRN IV SEV PAIN, Second choice; Start 06/24/19 at 10:00; Stop 06/25/19 at 09:59; Status DC Prochlorperazine Edisylate (Compazine) 5 mg PACU PRN PRN IV NAUSEA, MRX1 Last administered on 06/24/19at 13:27; Start 06/24/19 at 10:00; Stop 06/25/19 at 09:59; Status DC Sodium Chloride 1,000 ml @ 40 mls/hr Q24H IV Last administered on 06/24/19at 14:16; Start 06/24/19 at 10:15; Stop 06/27/19 at 10:52; Status DC Bupivacaine HCl/ Epinephrine Bitart (Sensorcain-Mpf Epi 0.5%-[id number]) 30 ml 1X ONCE INJ Last administered on 06/24/19at 12:53; Start 06/24/19 at 10:30; Stop 06/24/19 at 10:31; Status DC Desflurane (Suprane) 60 ml STK-MED ONCE IH ; Start 06/24/19 at 11:14; Stop 06/24/19 at 11:15; Status DC Ondansetron HCl (Zofran) 4 mg STK-MED ONCE .ROUTE ; Start 06/24/19 at 11:16; Stop 06/24/19 at 11:16; Status DC Dexamethasone Sodium Phosphate (Decadron) 4 mg STK-MED ONCE .ROUTE ; Start 06/24/19 at 11:17; Stop 06/24/19 at 11:17; Status DC Phenylephrine HCl (PHENYLEPHRINE in 0.9% NACL PF) 1 mg STK-MED ONCE IV ; Start 06/24/19 at 11:21; Stop 06/24/19 at 11:21; Status DC Sodium Chloride 1,000 ml @ 100 mls/hr 1X ONCE IV ; Start 06/24/19 at 11:30; Stop 06/24/19 at 21:29; Status DC Ephedrine Sulfate (ePHEDrine PF IN SALINE SYRINGE) 50 mg STK-MED ONCE IV ; Start 06/24/19 at 11:26; Stop 06/24/19 at 11:26; Status DC Ondansetron HCl (Zofran) 4 mg STK-MED ONCE .ROUTE ; Start 06/24/19 at 11:38; Stop 06/24/19 at 11:38; Status DC Neostigmine Methylsulfate (Neostigmine Methylsulfate) 5 mg STK-MED ONCE .ROUTE ; Start 06/24/19 at 11:39; Stop 06/24/19 at 11:39; Status DC Glycopyrrolate (Robinul) 1 mg STK-MED ONCE .ROUTE ; Start 06/24/19 at 11:39; Stop 06/24/19 at 11:39; Status DC Prochlorperazine Edisylate (Compazine) 10 mg STK-MED ONCE .ROUTE ; Start 06/24/19 at 12:59; Stop 06/24/19 at 13:00; Status DC Fentanyl Citrate (Fentanyl 2ml Vial) 100 mcg STK-MED ONCE .ROUTE ; Start 06/24/19 at 13:08; Stop 06/24/19 at 13:08; Status DC Sodium Chloride (Normal Saline Flush) 3 ml QSHIFT PRN IV AFTER MEDS AND BLOOD DRAWS; Start 06/24/19 at 13:15 Naloxone HCl (Narcan) 0.4 mg PRN Q2MIN PRN IV SEE INSTRUCTIONS; Start 06/24/19 at 13:15 Sodium Chloride 1,000 ml @ 25 mls/hr Q24H IV ; Start 06/24/19 at 13:14; Stop 06/25/19 at 11:05; Status DC Morphine Sulfate (Morphine Sulfate) 4 mg PRN Q4HRS PRN IV MODERATE TO SEVERE PAIN Last administered on 06/24/19at 20:50; Start 06/24/19 at 13:15; Stop 06/28/19 at 13:57; Status DC Sodium Chloride 1,000 ml @ 100 mls/hr 1X ONCE IV Last administered on 06/25/19at 11:04; Start 06/25/19 at 10:30; Stop 06/25/19 at 20:29; Status DC Info (Tpn Per Pharmacy) 1 each PRN DAILY PRN MC SEE COMMENTS Last administered on 07/04/19at 14:54; Start 06/26/19 at 11:15 Sodium Chloride 1,000 ml @ 100 mls/hr 1X ONCE IV Last administered on 06/26/19at 12:51; Start 06/26/19 at 11:15; Stop 06/26/19 at 21:14; Status DC Enoxaparin Sodium (Lovenox 30mg Syringe) 30 mg Q24H SQ Last administered on 06/28/19at 14:16; Start 06/26/19 at 14:00; Stop 06/28/19 at 14:32; Status DC Sodium Chloride 90 meq/Potassium Chloride 50 meq/ Potassium Phosphate 13.6 mmol/Magnesium Sulfate 10 meq/ Calcium Gluconate 10 meq/ Multivitamins 10 ml/Chromium/ Copper/Manganese/ Seleni/Zn 1 ml/ Total Parenteral Nutrition/Amino Acids/Dextrose/ Fat Emulsion Intravenous 1,200 ml @ 50 mls/hr TPN CONT IV Last administered on 06/26/19at 22:42; Start 06/26/19 at 22:00; Stop 06/27/19 at 21:59; Status DC Potassium Phosphate 13.6 mmol/Dextrose 104.5333 ml @ 52.267 m... 1X ONCE IV Last administered on 06/27/19at 14:23; Start 06/27/19 at 13:00; Stop 06/27/19 at 14:59; Status DC Sodium Chloride 90 meq/Potassium Chloride 50 meq/ Potassium Phosphate 17 mmol/ Magnesium Sulfate 10 meq/Calcium Gluconate 10 meq/ Multivitamins 10 ml/Chromium/ Copper/Manganese/ Seleni/Zn 1 ml/ Total Parenteral Nutrition/Amino Acids/Dextrose/ Fat Emulsion Intravenous 1,200 ml @ 50 mls/hr TPN CONT IV Last administered on 06/27/19at 22:00; Start 06/27/19 at 22:00; Stop 06/28/19 at 21:59; Status DC Morphine Sulfate (Morphine Sulfate) 3 mg PRN Q4HRS PRN IV MODERATE PAIN; Start 06/28/19 at 14:00 Morphine Sulfate (Morphine Sulfate) 2 mg PRN Q2HR PRN IV MILD PAIN 1-3 Last administered on 06/29/19at 08:44; Start 06/28/19 at 14:00 Morphine Sulfate (Morphine Sulfate) 4 mg PRN Q4HRS PRN IV SEVERE PAIN; Start 06/28/19 at 14:15 Sodium Chloride 80 meq/Sodium Phosphate 3 mmol/ Potassium Chloride 50 meq/ Potassium Phosphate 17 mmol/ Magnesium Sulfate 10 meq/ Multivitamins 10 ml/Chromium/ Copper/Manganese/ Seleni/Zn 1 ml/ Total Parenteral Nutrition/Amino Acids/Dextrose/ Fat Emulsion Intravenous 1,200 ml @ 50 mls/hr TPN CONT IV Last administered on 06/28/19at 22:14; Start 06/28/19 at 22:00; Stop 06/29/19 at 21:59; Status DC Enoxaparin Sodium (Lovenox 40mg Syringe) 40 mg Q24H SQ ; Start 06/29/19 at 14:00; Status Cancel Enoxaparin Sodium (Lovenox 30mg Syringe) 30 mg Q24H SQ Last administered on 07/03/19at 14:30; Start 06/29/19 at 14:00 Sodium Chloride 60 meq/Sodium Phosphate 13 mmol/ Potassium Chloride 40 meq/ Potassium Phosphate 17 mmol/ Magnesium Sulfate 10 meq/ Multivitamins 10 ml/Chromium/ Copper/Manganese/ Seleni/Zn 1 ml/ Total Parenteral Nutrition/Amino Acids/Dextrose/ Fat Emulsion Intravenous 1,200 ml @ 50 mls/hr TPN CONT IV Last administered on 06/29/19at 21:39; Start 06/29/19 at 22:00; Stop 06/30/19 at 21:59; Status DC Magnesium Sulfate 50 ml @ 25 mls/hr 1X ONCE IV Last administered on 06/30/19at 13:46; Start 06/30/19 at 13:00; Stop 06/30/19 at 14:59; Status DC Sodium Chloride 60 meq/Sodium Phosphate 13 mmol/ Potassium Chloride 20 meq/ Potassium Phosphate 17 mmol/ Magnesium Sulfate 10 meq/ Multivitamins 10 ml/Manager Telemetry mium/ Copper/Manganese/ Seleni/Zn 1 ml/ Total Parenteral Nutrition/Amino Acids/Dextrose/ Fat Emulsion Intravenous 1,200 ml @ 50 mls/hr TPN CONT IV Last administered on 06/30/19at 21:26; Start 06/30/19 at 22:00; Stop 07/01/19 at 21:59; Status DC Levothyroxine Sodium (Synthroid) 50 mcg DAILY06 PO Last administered on 07/03/19at 06:22; Start 07/02/19 at 06:00 Pantoprazole Sodium (Protonix) 40 mg DAILYAC PO Last administered on 07/04/19at 07:44; Start 07/02/19 at 07:30 Sodium Acetate 60 meq/Sodium Phosphate 13 mmol/ Potassium Chloride 20 meq/ Potassium Phosphate 17 mmol/ Magnesium Sulfate 10 meq/ Multivitamins 10 ml/Chromium/ Copper/Manganese/ Seleni/Zn 1 ml/ Total Parenteral Nutrition/Amino Acids/Dextrose/ Fat Emulsion Intravenous 1,200 ml @ 50 mls/hr TPN CONT IV Last administered on 07/01/19at 21:47; Start 07/01/19 at 22:00; Stop 07/02/19 at 21:59; Status DC Sodium Acetate 60 meq/Sodium Phosphate 13 mmol/ Potassium Acetate 20 meq/Potassium Phosphate 17 mmol/ Magnesium Sulfate 10 meq/ Multivitamins 10 ml/C hromium/ Copper/Manganese/ Seleni/Zn 1 ml/ Total Parenteral Nutrition/Amino Acids/Dextrose/ Fat Emulsion Intravenous 1,200 ml @ 50 mls/hr TPN CONT IV Last administered on 07/02/19at 22:41; Start 07/02/19 at 22:00; Stop 07/03/19 at 21:59; Status DC Multivitamins (Thera M Plus) 1 tab DAILY PO Last administered on 07/04/19at 09:31; Start 07/03/19 at 12:00 Folic Acid (Folic Acid) 1 mg DAILY PO Last administered on 07/04/19 09:31; Start 07/03/19 at 12:00 Cyanocobalamin (Vitamin B-12) 1,000 mcg DAILY PO Last administered on 07/04/19at 09:31; Start 07/03/19 at 12:00 Sodium Acetate 60 meq/Sodium Phosphate 13 mmol/ Potassium Acetate 20 meq/Potassium Phosphate 17 mmol/ Magnesium Sulfate 10 meq/ Multivitamins 10 ml/Chromium/ Copper/Manganese/ Seleni/Zn 1 ml/ Total Parenteral Nutrition/Amino Acids/Dextrose/ Fat Emulsion Intravenous 1,200 ml @ 50 mls/hr TPN CONT IV Last administered on 07/03/19at 22:20; Start 07/03/19 at 22:00; Stop 07/04/19 at 21:59 Sodium Acetate 60 meq/Sodium Phosphate 13 mmol/ Potassium Acetate 20 meq/Potassium Phosphate 17 mmol/ Magnesium Sulfate 10 meq/ Multivitamins 10 ml/Chromium/ Copper/Manganese/ Seleni/Zn 1 ml/ Total Parenteral Nutrition/Amino Acids/Dextrose/ Fat Emulsion Intravenous 1,200 ml @ 50 mls/hr TPN CONT IV ; Start 07/04/19 at 22:00; Stop 07/05/19 at 21:59 Active Scripts Active Reported Aspirin 81 Mg Tab.chew 1 Tab PO DAILY Ultram (Tramadol Hcl) 50 Mg Tablet 50 Mg PO Q4HRS PRN Potassium Chloride 10 Meq Tab.sr.24h 10 Meq PO DAILY Namenda (Memantine Hcl) 10 Mg Tablet 10 Mg PO BID Zofran (Ondansetron Hcl) 4 Mg Tablet 1 Tab PO PRN Q6-8HRS Imodium A-D (Loperamide Hcl) 1 Mg/7.5 Ml Liquid 1 Mg PO PRN PRN Omeprazole 20 Mg Tablet.dr 1 Tab PO DAILY Acetaminophen 325 Mg Tablet 325 Mg PO Q4HRS Donepezil Hcl 10 Mg Tablet 1 Tab PO DAILY Xeloda (Capecitabine) 500 Mg Tablet 2,000 Mg PO Q12HR Buspirone Hcl 5 Mg Tablet 1 Tab PO QID Melatonin 3 Mg Tablet 1 Tab PO QHS Levothyroxine Sodium 50 Mcg Tablet 50 Mcg PO DAILYAC Cerefolin Nac Caplet (Lmfol Ca/Acetyl/Mb12/Algal Oil) 1 Each Tablet 1 Each PO DAILY Xalatan (Latanoprost) 2.5 Ml Drops 1 Drop EACHEYE QHS Magnesium Oxide 400 Mg Tablet 1 Tab PO TID Pepcid (Famotidine) 20 Mg Tablet 20 Mg PO DAILY Ativan (Lorazepam) 0.5 Mg Tablet 0.5 Mg PO Q4HRS PRN Allergies Allergies: Coded Allergies: Iodinated Contrast Media (Verified Allergy, Intermediate, 04/20/19) rash iodine (Verified Allergy, Intermediate, 06/23/19) latex (Verified Allergy, Intermediate, 06/23/19) Vitals VITALS Vital Signs Date Time Temp Pulse Resp B/P (MAP) Pulse Ox O2 Delivery O2 Flow Rate FiO2 07/04/19 15:00 98.0 73 14 121/59 (79) 99 Room Air 98.0 Labs Labs Laboratory Tests Test 07/03/19 05:50 07/04/19 06:13 07/04/19 11:15 White Blood Count 6.8 x10^3/uL (4.0-11.0) 6.6 x10^3/uL (4.0-11.0) 7.3 x10^3/uL (4.0-11.0) Red Blood Count 2.04 x10^6/uL (3.50-5.40) 2.17 x10^6/uL (3.50-5.40) 2.38 x10^6/uL (3.50-5.40) Hemoglobin 7.3 g/dL (12.0-15.5) 7.9 g/dL (12.0-15.5) 8.7 g/dL (12.0-15.5) Hematocrit 21.8 % (36.0-47.0) 23.1 % (36.0-47.0) 25.6 % (36.0-47.0) Mean Corpuscular Volume 107 fL (79-100) 106 fL (79-100) 108 fL (79-100) Mean Corpuscular Hemoglobin 36 pg (25-35) 36 pg (25-35) 36 pg (25-35) Mean Corpuscular Hemoglobin Concent 33 g/dL (31-37) 34 g/dL (31-37) 34 g/dL (31-37) Red Cell Distribution Width 21.7 % (11.5-14.5) 21.4 % (11.5-14.5) 21.4 % (11.5-14.5) Platelet Count 222 x10^3/uL (140-400) 249 x10^3/uL (140-400) 257 x10^3/uL (140-400) Neutrophils (%) (Auto) 69 % (31-73) 64 % (31-73) Lymphocytes (%) (Auto) 15 % (24-48) 20 % (24-48) Monocytes (%) (Auto) 12 % (0-9) 12 % (0-9) Eosinophils (%) (Auto) 3 % (0-3) 3 % (0-3) Basophils (%) (Auto) 1 % (0-3) 1 % (0-3) Neutrophils # (Auto) 4.7 x10^3/uL (1.8-7.7) 4.2 x10^3/uL (1.8-7.7) Lymphocytes # (Auto) 1.0 x10^3/uL (1.0-4.8) 1.3 x10^3/uL (1.0-4.8) Monocytes # (Auto) 0.8 x10^3/uL (0.0-1.1) 0.8 x10^3/uL (0.0-1.1) Eosinophils # (Auto) 0.2 x10^3/uL (0.0-0.7) 0.2 x10^3/uL (0.0-0.7) Basophils # (Auto) 0.1 x10^3/uL (0.0-0.2) 0.1 x10^3/uL (0.0-0.2) Sodium Level 139 mmol/L (136-145) 141 mmol/L (136-145) Potassium Level 4.1 mmol/L (3.5-5.1) 3.9 mmol/L (3.5-5.1) Chloride Level 111 mmol/L (98-107) 104 mmol/L (98-107) Carbon Dioxide Level 17 mmol/L (21-32) 21 mmol/L (21-32) Anion Gap 11 (6-14) 16 (6-14) Blood Urea Nitrogen 27 mg/dL (7-20) 23 mg/dL (7-20) Creatinine 0.9 mg/dL (0.6-1.0) 0.9 mg/dL (0.6-1.0) Estimated GFR (Cockcroft-Gault) 59.5 59.5 Glucose Level 104 mg/dL (70-99) 96 mg/dL (70-99) Calcium Level 7.7 mg/dL (8.5-10.1) 7.8 mg/dL (8.5-10.1) Phosphorus Level 3.4 mg/dL (2.6-4.7) Magnesium Level 1.8 mg/dL (1.8-2.4) Triglycerides Level 232 mg/dL (0-150) Laboratory Tests Test 07/04/19 06:13 07/04/19 11:15 White Blood Count 6.6 x10^3/uL (4.0-11.0) 7.3 x10^3/uL (4.0-11.0) Red Blood Count 2.17 x10^6/uL (3.50-5.40) 2.38 x10^6/uL (3.50-5.40) Hemoglobin 7.9 g/dL (12.0-15.5) 8.7 g/dL (12.0-15.5) Hematocrit 23.1 % (36.0-47.0) 25.6 % (36.0-47.0) Mean Corpuscular Volume 106 fL (79-100) 108 fL (79-100) Mean Corpuscular Hemoglobin 36 pg (25-35) 36 pg (25-35) Mean Corpuscular Hemoglobin Concent 34 g/dL (31-37) 34 g/dL (31-37) Red Cell Distribution Width 21.4 % (11.5-14.5) 21.4 % (11.5-14.5) Platelet Count 249 x10^3/uL (140-400) 257 x10^3/uL (140-400) Neutrophils (%) (Auto) 64 % (31-73) Lymphocytes (%) (Auto) 20 % (24-48) Monocytes (%) (Auto) 12 % (0-9) Eosinophils (%) (Auto) 3 % (0-3) Basophils (%) (Auto) 1 % (0-3) Neutrophils # (Auto) 4.2 x10^3/uL (1.8-7.7) Lymphocytes # (Auto) 1.3 x10^3/uL (1.0-4.8) Monocytes # (Auto) 0.8 x10^3/uL (0.0-1.1) Eosinophils # (Auto) 0.2 x10^3/uL (0.0-0.7) Basophils # (Auto) 0.1 x10^3/uL (0.0-0.2) Sodium Level 141 mmol/L (136-145) Potassium Level 3.9 mmol/L (3.5-5.1) Chloride Level 104 mmol/L (98-107) Carbon Dioxide Level 21 mmol/L (21-32) Anion Gap 16 (6-14) Blood Urea Nitrogen 23 mg/dL (7-20) Creatinine 0.9 mg/dL (0.6-1.0) Estimated GFR (Cockcroft-Gault) 59.5 Glucose Level 96 mg/dL (70-99) Calcium Level 7.8 mg/dL (8.5-10.1) Phosphorus Level 3.4 mg/dL (2.6-4.7) Magnesium Level 1.8 mg/dL (1.8-2.4) Triglycerides Level 232 mg/dL (0-150) Assessment/Plan Assessment/Plan Rectal bleed- s/p colon resection/sb resection, ischemic colitis and/or anastomotic ulcer possible. Plan medical therapy with serial cbcs bleeding scan if bleeding continues worsens Full note dictated MADY FRANKEL MD Jul 04, 2019 18:07
[2019-07-04 19:00] VITALS: BP 114/55
[2019-07-04] MEDS: LATANOPROST 0.005% OPHTH SOLUTION 2.5ML BOTTLE. OU SCH (21:17)
[2019-07-04] MEDS ORDERED: DEXTROSE 70% IV SCH ×10 (22:00)
[2019-07-04] MEDS ORDERED: [UNRECOGNIZED DRUG - OTHER] IV SCH ×10 (22:00)
[2019-07-04] MEDS ORDERED: AMINO ACID IV SCH ×10 (22:00)
[2019-07-04] MEDS ORDERED: TOTAL PARENTERAL NUTRITION IV SCH ×10 (22:00)
[2019-07-04 23:00] VITALS: BP 102/41
--- NOTE | 2019-07-05 00:23 | CONS ---
DATE OF CONSULTATION: 07/04/2019 REFERRING PHYSICIAN: Kartik Ahumada. REASON FOR CONSULTATION: Rectal bleeding. HISTORY OF PRESENT ILLNESS: This is an 84-year-old female with past medical history significant for dementia, hypothyroidism, osteoarthrosis, history of metastatic breast cancer, colon cancer, status post resection is admitted to [facility] with abdominal pain, found to have a small-bowel obstruction requiring surgery, lysis of adhesions, small bowel resection. She now has had some rectal bleeding. Denies any abdominal pain. Blood counts have been stable. With a hemoglobin in the mid 7 range 7.9-8.2 with a stable BUN. The patient denies abdominal pain, states that she is waiting for her bowels to recover prior to advancing her diet. PAST MEDICAL HISTORY: History of colon cancer, breast cancer, dementia, osteoarthrosis, hypothyroidism, status post small bowel resection. ALLERGIES: IODINE, LATEX. MEDICATIONS: Presently include TPN, vitamin B12, folic acid, pantoprazole, levothyroxine, morphine, potassium, donepezil, BuSpar. FAMILY AND SOCIAL HISTORY: She is retired. Does not drink or smoke. REVIEW OF SYSTEMS: Per records. PHYSICAL EXAMINATION: GENERAL: Reveals a thin female who is alert, cooperative, in mild distress. VITAL SIGNS: Temperature 98, pulse 93, respiratory rate 14, blood pressure 120/59. HEENT: Normocephalic, atraumatic head. Pupils and extraocular muscles are not tested. Sclerae anicteric. NECK: Supple. LUNGS: Clear. CARDIOVASCULAR: Reveals an S1, S2 without S3, S4 or appreciable murmur. ABDOMEN: Reveals a soft abdomen with hypoactive bowel sounds and intact incision without tenderness. EXTREMITIES: Reveals no cyanosis, clubbing or edema. LABORATORY STUDIES: Sodium 141, potassium 3.9, chloride 104, bicarb is 23, creatinine 0.9, glucose is 96, alkaline phosphatase 195, total protein 5.8, albumin 2.1, triglycerides 232. Hemoglobin of 8.7, hematocrit 25.6, white count 7.3, and platelet count 257,000. IMPRESSION: Rectal bleeding, status post colon cancer resection, small bowel resection. Differential includes recurrent cancer anastomotic ulcer, ischemic colitis. We will recommend medical therapy with recent surgery. If the patient should continue bleeding, then bleeding scan and/or CT scan would be pursued to further assess. MADY FRANKEL MD DR: MAURICE/jose JOB#: [id number] / [id number] KARTIK Farmer MD, LEE MD
[2019-07-05 03:00] VITALS: BP 90/46
[2019-07-05] MEDS: LEVOTHYROXINE 50 MCG TABLET PO SCH (06:11)
[2019-07-05 06:55] LABS: CALCIUM 7.8 mg/dL (8.5-10.1); CREATININE 0.8 mg/dL (0.6-1.0); GFR 68.2; MAGNESIUM 2.1 mg/dL (1.8-2.4); POTASSIUM 4.3 mmol/L (3.5-5.1)
[2019-07-05 07:00] VITALS: BP 105/58
[2019-07-05] MEDS: CYANOCOBALAMIN (VITAMIN B-12) 1,000 MCG TABLET. PO SCH (09:40)
[2019-07-05] MEDS: POTASSIUM CHLORIDE 10 MEQ TABLET.ER. PO SCH (09:40)
[2019-07-05] MEDS: MULTIVITAMIN with MINERAL TABLET. PO SCH (09:40)
[2019-07-05] MEDS: DONEPEZIL HCL 10 MG TABLET. PO SCH (09:41)
[2019-07-05] MEDS: PANTOPRAZOLE 40 MG TABLET.DR. PO SCH (09:41)
[2019-07-05] MEDS: FOLIC ACID 1 MG TABLET. PO SCH (09:41)
[2019-07-05] MEDS: busPIRone 5 MG TABLET. PO SCH ×4 (09:44→22:21)
--- NOTE | 2019-07-05 09:53 | PDOC ---
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 07/05/19 0953: SURGICAL PROGRESS NOTE Subjective reports no further bleeding some nausea + flatus Vital Signs Vital Signs Date Time Temp Pulse Resp B/P (MAP) Pulse Ox O2 Delivery O2 Flow Rate FiO2 07/05/19 07:25 Room Air 07/05/19 07:00 99.0 80 16 105/58 (74) 97 99.0 I&O Intake and Output 07/05/19 07:00 Intake Total 2100 ml Output Total 150 ml Balance 1950 ml Intake Oral 1150 ml IV Total 350 ml Other 600 ml Output Urine Total 50 ml Estimated Blood Loss 100 ml # Voids 3 # Bowel Movements 2 General: Alert, Oriented X3, Cooperative, No acute distress Abdomen: Soft, No tenderness Labs Laboratory Tests Test 07/04/19 06:13 07/04/19 11:15 07/05/19 06:35 White Blood Count 6.6 x10^3/uL (4.0-11.0) 7.3 x10^3/uL (4.0-11.0) Red Blood Count 2.17 x10^6/uL (3.50-5.40) 2.38 x10^6/uL (3.50-5.40) Hemoglobin 7.9 g/dL (12.0-15.5) 8.7 g/dL (12.0-15.5) Hematocrit 23.1 % (36.0-47.0) 25.6 % (36.0-47.0) Mean Corpuscular Volume 106 fL (79-100) 108 fL (79-100) Mean Corpuscular Hemoglobin 36 pg (25-35) 36 pg (25-35) Mean Corpuscular Hemoglobin Concent 34 g/dL (31-37) 34 g/dL (31-37) Red Cell Distribution Width 21.4 % (11.5-14.5) 21.4 % (11.5-14.5) Platelet Count 249 x10^3/uL (140-400) 257 x10^3/uL (140-400) Neutrophils (%) (Auto) 64 % (31-73) Lymphocytes (%) (Auto) 20 % (24-48) Monocytes (%) (Auto) 12 % (0-9) Eosinophils (%) (Auto) 3 % (0-3) Basophils (%) (Auto) 1 % (0-3) Neutrophils # (Auto) 4.2 x10^3/uL (1.8-7.7) Lymphocytes # (Auto) 1.3 x10^3/uL (1.0-4.8) Monocytes # (Auto) 0.8 x10^3/uL (0.0-1.1) Eosinophils # (Auto) 0.2 x10^3/uL (0.0-0.7) Basophils # (Auto) 0.1 x10^3/uL (0.0-0.2) Sodium Level 141 mmol/L (136-145) 141 mmol/L (136-145) Potassium Level 3.9 mmol/L (3.5-5.1) 4.3 mmol/L (3.5-5.1) Chloride Level 104 mmol/L (98-107) 109 mmol/L (98-107) Carbon Dioxide Level 21 mmol/L (21-32) 24 mmol/L (21-32) Anion Gap 16 (6-14) 8 (6-14) Blood Urea Nitrogen 23 mg/dL (7-20) 21 mg/dL (7-20) Creatinine 0.9 mg/dL (0.6-1.0) 0.8 mg/dL (0.6-1.0) Estimated GFR (Cockcroft-Gault) 59.5 68.2 Glucose Level 96 mg/dL (70-99) 102 mg/dL (70-99) Calcium Level 7.8 mg/dL (8.5-10.1) 7.8 mg/dL (8.5-10.1) Phosphorus Level 3.4 mg/dL (2.6-4.7) Magnesium Level 1.8 mg/dL (1.8-2.4) 2.1 mg/dL (1.8-2.4) Triglycerides Level 232 mg/dL (0-150) Laboratory Tests Test 07/04/19 11:15 07/05/19 06:35 White Blood Count 7.3 x10^3/uL (4.0-11.0) Red Blood Count 2.38 x10^6/uL (3.50-5.40) Hemoglobin 8.7 g/dL (12.0-15.5) Hematocrit 25.6 % (36.0-47.0) Mean Corpuscular Volume 108 fL (79-100) Mean Corpuscular Hemoglobin 36 pg (25-35) Mean Corpuscular Hemoglobin Concent 34 g/dL (31-37) Red Cell Distribution Width 21.4 % (11.5-14.5) Platelet Count 257 x10^3/uL (140-400) Sodium Level 141 mmol/L (136-145) Potassium Level 4.3 mmol/L (3.5-5.1) Chloride Level 109 mmol/L (98-107) Carbon Dioxide Level 24 mmol/L (21-32) Anion Gap 8 (6-14) Blood Urea Nitrogen 21 mg/dL (7-20) Creatinine 0.8 mg/dL (0.6-1.0) Estimated GFR (Cockcroft-Gault) 68.2 Glucose Level 102 mg/dL (70-99) Calcium Level 7.8 mg/dL (8.5-10.1) Magnesium Level 2.1 mg/dL (1.8-2.4) Problem List Problems Medical Problems: (1) RUFINO (acute kidney injury) Status: Acute (2) Dehydration Status: Acute (3) Encephalopathy Status: Acute (4) Small bowel obstruction Status: Acute Assessment/Plan will check Hb this AM try full liquids HUSSEIN WEINER MD 07/05/19 1442: SURGICAL PROGRESS NOTE Assessment/Plan pt seen up to chair as above no new surg recs 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
[2019-07-05 10:07] LABS: BASO # 0.1 x10^3/uL (0.0-0.2); BASO % 1 % (0-3); EOS # 0.1 x10^3/uL (0.0-0.7); EOS % 2 % (0-3); HEMOGLOBIN 7.6 g/dL (12.0-15.5); LYMPH % 19 % (24-48); MEAN CORPUSCULAR HEMOGLOBIN 37 pg (25-35); MEAN CORPUSCULAR HGB CONC 34 g/dL (31-37); MEAN CORPUSCULAR VOLUME 107 fL (79-100); MONO # 0.6 x10^3/uL (0.0-1.1); MONO % 12 % (0-9); NEUT # 3.5 x10^3/uL (1.8-7.7); NEUT % 65 % (31-73); PLATELET COUNT 246 x10^3/uL (140-400); RED BLOOD COUNT 2.06 x10^6/uL (3.50-5.40); RED CELL DISTRIBUTION WIDTH 21.7 % (11.5-14.5); WHITE BLOOD COUNT 5.4 x10^3/uL (4.0-11.0)
[2019-07-05 11:00] VITALS: BP 112/58
--- NOTE | 2019-07-05 11:08 | PDOC ---
PROGRESS NOTES Chief Complaint Chief Complaint impression acute abd pain, IMPROVING SLOWLY, JOSE A LIQUIDS, soft diet// vomiting after lunch 07/03 NPO OVERNIGHT small bowel obstruction, lactate elevated from this metastatic breast cancer malnutrition, severe protein malnutrition acute on chronic renal failure, vasomotor, cognitive decline, dementia Hx, chronic Small-bowel obstruction secondary to a fibrous adhesion. small bowel segmental resection: - Central segmental hemorrhagic infarction with stricture. - Proximal and distal margins of resection viable. 06/24 kub Grossly unchanged appearance of the abdomen including dilated loops of central small bowel containing dilute enteric contrast. moderate fall risk macrocytic anemia increase activity FULL LIQUIDS 07/05, AAT snf bed soon mvi folic acid .8mg po daily b12 1000mcg po daily Past Medical History Cardiovascular: HTN CENTRAL NERVOUS SYSTEM: Dementia Musculoskeletal: Osteoarthritis Endocrine: Hypothyroidism Past Surgical History Past Surgical History: Colon Resection, Other (port placement) Family History Family History: No Significant Social History Smoke: No ALCOHOL: none 28 min pt exam, chart review, > 50% of time spent with exam, chart review, pt care coordination History of Present Illness History of Present Illness Dr. Mccoy, 06/24 ec-lap, , release small-bowel obstruction, small bowel resection with primary anastomosis. renal funciton better still getting a lot of fluid out of NG pain is minimal, change to TPN as no flatus, and still needs NG Vitals Vitals Vital Signs Date Time Temp Pulse Resp B/P (MAP) Pulse Ox O2 Delivery O2 Flow Rate FiO2 07/05/19 07:25 Room Air 07/05/19 07:00 99.0 80 16 105/58 (74) 97 99.0 Physical Exam General: Alert, Oriented X3, Cooperative, No acute distress Heart: Regular rate, Normal S1, Normal S2 Lungs: Clear Abdomen: Soft, No tenderness Extremities: No clubbing, No cyanosis, No edema Skin: No breakdown, No significant lesion Labs LABS Laboratory Tests Test 07/04/19 11:15 07/05/19 06:35 White Blood Count 7.3 x10^3/uL (4.0-11.0) 5.4 x10^3/uL (4.0-11.0) Red Blood Count 2.38 x10^6/uL (3.50-5.40) 2.06 x10^6/uL (3.50-5.40) Hemoglobin 8.7 g/dL (12.0-15.5) 7.6 g/dL (12.0-15.5) Hematocrit 25.6 % (36.0-47.0) 22.0 % (36.0-47.0) Mean Corpuscular Volume 108 fL (79-100) 107 fL (79-100) Mean Corpuscular Hemoglobin 36 pg (25-35) 37 pg (25-35) Mean Corpuscular Hemoglobin Concent 34 g/dL (31-37) 34 g/dL (31-37) Red Cell Distribution Width 21.4 % (11.5-14.5) 21.7 % (11.5-14.5) Platelet Count 257 x10^3/uL (140-400) 246 x10^3/uL (140-400) Neutrophils (%) (Auto) 65 % (31-73) Lymphocytes (%) (Auto) 19 % (24-48) Monocytes (%) (Auto) 12 % (0-9) Eosinophils (%) (Auto) 2 % (0-3) Basophils (%) (Auto) 1 % (0-3) Neutrophils # (Auto) 3.5 x10^3/uL (1.8-7.7) Lymphocytes # (Auto) 1.0 x10^3/uL (1.0-4.8) Monocytes # (Auto) 0.6 x10^3/uL (0.0-1.1) Eosinophils # (Auto) 0.1 x10^3/uL (0.0-0.7) Basophils # (Auto) 0.1 x10^3/uL (0.0-0.2) Sodium Level 141 mmol/L (136-145) Potassium Level 4.3 mmol/L (3.5-5.1) Chloride Level 109 mmol/L (98-107) Carbon Dioxide Level 24 mmol/L (21-32) Anion Gap 8 (6-14) Blood Urea Nitrogen 21 mg/dL (7-20) Creatinine 0.8 mg/dL (0.6-1.0) Estimated GFR (Cockcroft-Gault) 68.2 Glucose Level 102 mg/dL (70-99) Calcium Level 7.8 mg/dL (8.5-10.1) Magnesium Level 2.1 mg/dL (1.8-2.4) Assessment and Plan Assessmemt and Plan Problems Medical Problems: (1) RUFINO (acute kidney injury) Status: Acute (2) Dehydration Status: Acute (3) Encephalopathy Status: Acute (4) Small bowel obstruction Status: Acute Comment Review of Relevant I have reviewed the following items lola (where applicable) has been applied. Labs Laboratory Tests Test 07/04/19 06:13 07/04/19 11:15 07/05/19 06:35 White Blood Count 6.6 x10^3/uL (4.0-11.0) 7.3 x10^3/uL (4.0-11.0) 5.4 x10^3/uL (4.0-11.0) Red Blood Count 2.17 x10^6/uL (3.50-5.40) 2.38 x10^6/uL (3.50-5.40) 2.06 x10^6/uL (3.50-5.40) Hemoglobin 7.9 g/dL (12.0-15.5) 8.7 g/dL (12.0-15.5) 7.6 g/dL (12.0-15.5) Hematocrit 23.1 % (36.0-47.0) 25.6 % (36.0-47.0) 22.0 % (36.0-47.0) Mean Corpuscular Volume 106 fL (79-100) 108 fL (79-100) 107 fL (79-100) Mean Corpuscular Hemoglobin 36 pg (25-35) 36 pg (25-35) 37 pg (25-35) Mean Corpuscular Hemoglobin Concent 34 g/dL (31-37) 34 g/dL (31-37) 34 g/dL (31-37) Red Cell Distribution Width 21.4 % (11.5-14.5) 21.4 % (11.5-14.5) 21.7 % (11.5-14.5) Platelet Count 249 x10^3/uL (140-400) 257 x10^3/uL (140-400) 246 x10^3/uL (140-400) Neutrophils (%) (Auto) 64 % (31-73) 65 % (31-73) Lymphocytes (%) (Auto) 20 % (24-48) 19 % (24-48) Monocytes (%) (Auto) 12 % (0-9) 12 % (0-9) Eosinophils (%) (Auto) 3 % (0-3) 2 % (0-3) Basophils (%) (Auto) 1 % (0-3) 1 % (0-3) Neutrophils # (Auto) 4.2 x10^3/uL (1.8-7.7) 3.5 x10^3/uL (1.8-7.7) Lymphocytes # (Auto) 1.3 x10^3/uL (1.0-4.8) 1.0 x10^3/uL (1.0-4.8) Monocytes # (Auto) 0.8 x10^3/uL (0.0-1.1) 0.6 x10^3/uL (0.0-1.1) Eosinophils # (Auto) 0.2 x10^3/uL (0.0-0.7) 0.1 x10^3/uL (0.0-0.7) Basophils # (Auto) 0.1 x10^3/uL (0.0-0.2) 0.1 x10^3/uL (0.0-0.2) Sodium Level 141 mmol/L (136-145) 141 mmol/L (136-145) Potassium Level 3.9 mmol/L (3.5-5.1) 4.3 mmol/L (3.5-5.1) Chloride Level 104 mmol/L (98-107) 109 mmol/L (98-107) Carbon Dioxide Level 21 mmol/L (21-32) 24 mmol/L (21-32) Anion Gap 16 (6-14) 8 (6-14) Blood Urea Nitrogen 23 mg/dL (7-20) 21 mg/dL (7-20) Creatinine 0.9 mg/dL (0.6-1.0) 0.8 mg/dL (0.6-1.0) Estimated GFR (Cockcroft-Gault) 59.5 68.2 Glucose Level 96 mg/dL (70-99) 102 mg/dL (70-99) Calcium Level 7.8 mg/dL (8.5-10.1) 7.8 mg/dL (8.5-10.1) Phosphorus Level 3.4 mg/dL (2.6-4.7) Magnesium Level 1.8 mg/dL (1.8-2.4) 2.1 mg/dL (1.8-2.4) Triglycerides Level 232 mg/dL (0-150) Laboratory Tests Test 07/04/19 11:15 07/05/19 06:35 White Blood Count 7.3 x10^3/uL (4.0-11.0) 5.4 x10^3/uL (4.0-11.0) Red Blood Count 2.38 x10^6/uL (3.50-5.40) 2.06 x10^6/uL (3.50-5.40) Hemoglobin 8.7 g/dL (12.0-15.5) 7.6 g/dL (12.0-15.5) Hematocrit 25.6 % (36.0-47.0) 22.0 % (36.0-47.0) Mean Corpuscular Volume 108 fL (79-100) 107 fL (79-100) Mean Corpuscular Hemoglobin 36 pg (25-35) 37 pg (25-35) Mean Corpuscular Hemoglobin Concent 34 g/dL (31-37) 34 g/dL (31-37) Red Cell Distribution Width 21.4 % (11.5-14.5) 21.7 % (11.5-14.5) Platelet Count 257 x10^3/uL (140-400) 246 x10^3/uL (140-400) Neutrophils (%) (Auto) 65 % (31-73) Lymphocytes (%) (Auto) 19 % (24-48) Monocytes (%) (Auto) 12 % (0-9) Eosinophils (%) (Auto) 2 % (0-3) Basophils (%) (Auto) 1 % (0-3) Neutrophils # (Auto) 3.5 x10^3/uL (1.8-7.7) Lymphocytes # (Auto) 1.0 x10^3/uL (1.0-4.8) Monocytes # (Auto) 0.6 x10^3/uL (0.0-1.1) Eosinophils # (Auto) 0.1 x10^3/uL (0.0-0.7) Basophils # (Auto) 0.1 x10^3/uL (0.0-0.2) Sodium Level 141 mmol/L (136-145) Potassium Level 4.3 mmol/L (3.5-5.1) Chloride Level 109 mmol/L (98-107) Carbon Dioxide Level 24 mmol/L (21-32) Anion Gap 8 (6-14) Blood Urea Nitrogen 21 mg/dL (7-20) Creatinine 0.8 mg/dL (0.6-1.0) Estimated GFR (Cockcroft-Gault) 68.2 Glucose Level 102 mg/dL (70-99) Calcium Level 7.8 mg/dL (8.5-10.1) Magnesium Level 2.1 mg/dL (1.8-2.4) Microbiology 06/20/19 Urine Culture - Final, Complete 06/20/19 Urine Culture Result 1 (YOBANY) - Final, Complete Medications Current Medications Potassium Chloride/Sodium Chloride 1,000 ml @ 125 mls/hr Q8H IV Last administered on 06/20/19at 07:57; Start 06/19/19 at 22:15; Stop 06/20/19 at 08:50; Status DC Throat Lozenges (Chloraseptic) 1 spray PRN Q2HR PRN PO SORE THROAT, 2ND CHOICE; Start 06/19/19 at 22:15 Throat Lozenges (Cepacol Sore Throat Lozenge) 1 juan PRN Q2HRS PRN PO SORE THROAT, 1ST CHOICE; Start 06/19/19 at 22:15 Sodium Chloride 250 ml @ 250 mls/hr 1X ONCE IV Last administered on 06/20/19at 03:24; Start 06/20/19 at 02:45; Stop 06/20/19 at 03:45; Status DC Ondansetron HCl (Zofran) 4 mg PRN Q6HRS PRN IV NAUSEA/VOMITING Last administered on 07/01/19 09:08; Start 06/20/19 at 08:00 Buspirone HCl (Buspar) 5 mg QID PO Last administered on 07/05/19 09:44; Start 06/20/19 at 09:00 Donepezil HCl (Aricept) 10 mg DAILY PO Last administered on 07/05/19 09:44; Start 06/20/19 at 09:00 Latanoprost (Xalatan) 1 drop QHS OU Last administered on 07/04/19at 21:20; Start 06/20/19 at 21:00 Levothyroxine Sodium (Synthroid) 50 mcg DAILYAC PO ; Start 06/20/19 at 09:00; Stop 06/22/19 at 15:39; Status DC Lorazepam (Ativan) 0.5 mg PRN Q4HRS PRN PO ANXIETY / AGITATION; Start 06/20/19 at 08:45 Potassium Chloride (Klor-Con) 10 meq DAILY PO Last administered on 07/05/19at 09:44; Start 06/20/19 at 09:00 Non-Formulary Medication (Melatonin ) 1 tab QHS PO ; Start 06/20/19 at 21:00; Status UNV Pantoprazole Sodium (Protonix) 40 mg DAILYAC PO ; Start 06/20/19 at 09:00; Stop 06/21/19 at 22:23; Status DC Ondansetron HCl (Zofran Odt) 4 mg PRN Q6HRS PRN PO NAUSEA/VOMITING Last administered on 07/03/19at 08:59; Start 06/20/19 at 09:00 Amino Acids/ Glycerin/ Electrolytes 1,000 ml @ 80 mls/hr [id number] IV Last administered on 06/26/19at 10:41; Start 06/20/19 at 09:00; Stop 06/26/19 at 21:59; Status DC Sodium Chloride 1,000 ml @ 1,000 mls/hr 1X ONCE IV Last administered on 06/20/19at 13:50; Start 06/20/19 at 13:30; Stop 06/20/19 at 14:29; Status DC Methylprednisolone Sodium Succinate (SOLU-Medrol 125MG VIAL) 125 mg 1X ONCE IV Last administered on 06/21/19at 17:15; Start 06/21/19 at 18:00; Stop 06/21/19 at 18:01; Status DC Methylprednisolone Sodium Succinate (SOLU-Medrol 125MG VIAL) 125 mg 1X ONCE IV Last administered on 06/22/19at 01:38; Start 06/22/19 at 00:00; Stop 06/22/19 at 00:01; Status DC Methylprednisolone Sodium Succinate (SOLU-Medrol 125MG VIAL) 125 mg 1X ONCE IV Last administered on 06/22/19at 05:43; Start 06/22/19 at 06:00; Stop 06/22/19 at 06:01; Status DC Diphenhydramine HCl (Benadryl) 50 mg 1X ONCE IVP Last administered on 06/22/19at 07:46; Start 06/22/19 at 07:00; Stop 06/22/19 at 07:01; Status DC Sodium Chloride 500 ml @ 500 mls/hr 1X ONCE IV Last administered on 06/21/19at 15:38; Start 06/21/19 at 15:30; Stop 06/21/19 at 16:29; Status DC Levofloxacin (Levaquin) 250 mg DAILY06 PO ; Start 06/22/19 at 06:00; Stop 06/21/19 at 22:23; Status DC Levofloxacin/ Dextrose 50 ml @ 50 mls/hr Q24H IV ; Start 06/21/19 at 22:30; Stop 06/21/19 at 22:34; Status DC Pantoprazole Sodium (PROTONIX VIAL for IV PUSH) 40 mg DAILYAC IVP Last administered on 07/01/19at 05:45; Start 06/22/19 at 07:30; Stop 07/01/19 at 12:11; Status DC Levofloxacin/ Dextrose 50 ml @ 50 mls/hr Q24H IV Last administered on 06/22/19at 05:43; Start 06/22/19 at 06:00; Stop 06/22/19 at 13:57; Status DC Iohexol (Omnipaque 300 Mg/ml) 400 ml 1X ONCE PO ; Start 06/22/19 at 07:45; Stop 06/22/19 at 07:50; Status DC Info (CONTRAST GIVEN -- Rx MONITORING) 1 each PRN DAILY PRN MC SEE COMMENTS; Start 06/22/19 at 08:00; Stop 06/24/19 at 07:59; Status DC Sodium Chloride 1,000 ml @ 100 mls/hr 1X ONCE IV Last administered on 06/22/19at 11:40; Start 06/22/19 at 11:15; Stop 06/22/19 at 21:14; Status DC Levothyroxine Sodium 25 mcg/ Sodium Chloride 5 ml @ 100 mls/hr Q72H IVP Last administered on 06/29/19at 06:24; Start 06/26/19 at 06:00; Stop 07/01/19 at 12:10; Status DC Sodium Chloride 1,000 ml @ 100 mls/hr 1X ONCE IV Last administered on 06/23/19at 11:59; Start 06/23/19 at 11:45; Stop 06/23/19 at 21:44; Status DC Propofol 20 ml @ As Directed STK-MED ONCE IV ; Start 06/24/19 at 09:27; Stop 06/24/19 at 09:28; Status DC Lidocaine HCl (Lidocaine Pf 2% Vial) 5 ml STK-MED ONCE .ROUTE ; Start 06/24/19 at 09:27; Stop 06/24/19 at 09:28; Status DC Rocuronium Beyer (Zemuron) 50 mg STK-MED ONCE .ROUTE ; Start 06/24/19 at 09:28; Stop 06/24/19 at 09:28; Status DC Fentanyl Citrate (Fentanyl 2ml Vial) 100 mcg STK-MED ONCE .ROUTE ; Start 06/24/19 at 09:28; Stop 06/24/19 at 09:28; Status DC Cefazolin Sodium/ Dextrose 50 ml @ 100 mls/hr 1X PREOP PRN IV protocol Last administered on 06/24/19at 11:37; Start 06/24/19 at 06:00; Stop 06/24/19 at 15:00; Status DC Fentanyl Citrate (Fentanyl 2ml Vial) 25 mcg PRN Q5MIN PRN IV MILD PAIN 1-3 Last administered on 06/24/19at 13:48; Start 06/24/19 at 10:00; Stop 06/25/19 at 09:59; Status DC Fentanyl Citrate (Fentanyl 2ml Vial) 50 mcg PRN Q5MIN PRN IV MODERATE TO SEVERE PAIN Last administered on 06/24/19at 14:08; Start 06/24/19 at 10:00; Stop 06/25/19 at 09:59; Status DC Morphine Sulfate (Morphine Sulfate) 1 mg PRN Q10MIN PRN IV SEVERE PAIN 7-10; Start 06/24/19 at 10:00; Stop 06/25/19 at 09:59; Status DC Ringer's Solution 1,000 ml @ 30 mls/hr Q24H IV ; Start 06/24/19 at 10:00; Stop 06/24/19 at 10:14; Status DC Hydromorphone HCl (Dilaudid) 0.5 mg PRN Q10MIN PRN IV SEV PAIN, Second choice; Start 06/24/19 at 10:00; Stop 06/25/19 at 09:59; Status DC Prochlorperazine Edisylate (Compazine) 5 mg PACU PRN PRN IV NAUSEA, MRX1 Last administered on 06/24/19at 13:27; Start 06/24/19 at 10:00; Stop 06/25/19 at 09:59; Status DC Sodium Chloride 1,000 ml @ 40 mls/hr Q24H IV Last administered on 06/24/19at 14:16; Start 06/24/19 at 10:15; Stop 06/27/19 at 10:52; Status DC Bupivacaine HCl/ Epinephrine Bitart (Sensorcain-Mpf Epi 0.5%-[id number]) 30 ml 1X ONCE INJ Last administered on 06/24/19at 12:53; Start 06/24/19 at 10:30; Stop 06/24/19 at 10:31; Status DC Desflurane (Suprane) 60 ml STK-MED ONCE IH ; Start 06/24/19 at 11:14; Stop 06/24/19 at 11:15; Status DC Ondansetron HCl (Zofran) 4 mg STK-MED ONCE .ROUTE ; Start 06/24/19 at 11:16; Stop 06/24/19 at 11:16; Status DC Dexamethasone Sodium Phosphate (Decadron) 4 mg STK-MED ONCE .ROUTE ; Start 06/24/19 at 11:17; Stop 06/24/19 at 11:17; Status DC Phenylephrine HCl (PHENYLEPHRINE in 0.9% NACL PF) 1 mg STK-MED ONCE IV ; Start 06/24/19 at 11:21; Stop 06/24/19 at 11:21; Status DC Sodium Chloride 1,000 ml @ 100 mls/hr 1X ONCE IV ; Start 06/24/19 at 11:30; Stop 06/24/19 at 21:29; Status DC Ephedrine Sulfate (ePHEDrine PF IN SALINE SYRINGE) 50 mg STK-MED ONCE IV ; Start 06/24/19 at 11:26; Stop 06/24/19 at 11:26; Status DC Ondansetron HCl (Zofran) 4 mg STK-MED ONCE .ROUTE ; Start 06/24/19 at 11:38; Stop 06/24/19 at 11:38; Status DC Neostigmine Methylsulfate (Neostigmine Methylsulfate) 5 mg STK-MED ONCE .ROUTE ; Start 06/24/19 at 11:39; Stop 06/24/19 at 11:39; Status DC Glycopyrrolate (Robinul) 1 mg STK-MED ONCE .ROUTE ; Start 06/24/19 at 11:39; Stop 06/24/19 at 11:39; Status DC Prochlorperazine Edisylate (Compazine) 10 mg STK-MED ONCE .ROUTE ; Start 06/24/19 at 12:59; Stop 06/24/19 at 13:00; Status DC Fentanyl Citrate (Fentanyl 2ml Vial) 100 mcg STK-MED ONCE .ROUTE ; Start 06/24/19 at 13:08; Stop 06/24/19 at 13:08; Status DC Sodium Chloride (Normal Saline Flush) 3 ml QSHIFT PRN IV AFTER MEDS AND BLOOD DRAWS; Start 06/24/19 at 13:15 Naloxone HCl (Narcan) 0.4 mg PRN Q2MIN PRN IV SEE INSTRUCTIONS; Start 06/24/19 at 13:15 Sodium Chloride 1,000 ml @ 25 mls/hr Q24H IV ; Start 06/24/19 at 13:14; Stop 06/25/19 at 11:05; Status DC Morphine Sulfate (Morphine Sulfate) 4 mg PRN Q4HRS PRN IV MODERATE TO SEVERE PAIN Last administered on 06/24/19at 20:50; Start 06/24/19 at 13:15; Stop 06/28/19 at 13:57; Status DC Sodium Chloride 1,000 ml @ 100 mls/hr 1X ONCE IV Last administered on at 11:04; Start 06/25/19 at 10:30; Stop 06/25/19 at 20:29; Status DC Info (Tpn Per Pharmacy) 1 each PRN DAILY PRN MC SEE COMMENTS Last administered on 07/04/19at 14:54; Start 06/26/19 at 11:15 Sodium Chloride 1,000 ml @ 100 mls/hr 1X ONCE IV Last administered on 06/26/19at 12:51; Start 06/26/19 at 11:15; Stop 06/26/19 at 21:14; Status DC Enoxaparin Sodium (Lovenox 30mg Syringe) 30 mg Q24H SQ Last administered on 06/28/19at 14:16; Start 06/26/19 at 14:00; Stop 06/28/19 at 14:32; Status DC Sodium Chloride 90 meq/Potassium Chloride 50 meq/ Potassium Phosphate 13.6 mmol/Magnesium Sulfate 10 meq/ Calcium Gluconate 10 meq/ Multivitamins 10 ml/Chromium/ Copper/Manganese/ Seleni/Zn 1 ml/ Total Parenteral Nutrition/Amino Acids/Dextrose/ Fat Emulsion Intravenous 1,200 ml @ 50 mls/hr TPN CONT IV Last administered on 06/26/19at 22:42; Start 06/26/19 at 22:00; Stop 06/27/19 at 21:59; Status DC Potassium Phosphate 13.6 mmol/Dextrose 104.5333 ml @ 52.267 m... 1X ONCE IV Last administered on 06/27/19at 14:23; Start 06/27/19 at 13:00; Stop 06/27/19 at 14:59; Status DC Sodium Chloride 90 meq/Potassium Chloride 50 meq/ Potassium Phosphate 17 mmol/ Magnesium Sulfate 10 meq/Calcium Gluconate 10 meq/ Multivitamins 10 ml/Chromium/ Copper/Manganese/ Seleni/Zn 1 ml/ Total Parenteral Nutrition/Amino Acids/Dextrose/ Fat Emulsion Intravenous 1,200 ml @ 50 mls/hr TPN CONT IV Last administered on 06/27/19at 22:00; Start 06/27/19 at 22:00; Stop 06/28/19 at 21:59; Status DC Morphine Sulfate (Morphine Sulfate) 3 mg PRN Q4HRS PRN IV MODERATE PAIN; Start 06/28/19 at 14:00 Morphine Sulfate (Morphine Sulfate) 2 mg PRN Q2HR PRN IV MILD PAIN 1-3 Last administered on 06/29/19at 08:44; Start 06/28/19 at 14:00 Morphine Sulfate (Morphine Sulfate) 4 mg PRN Q4HRS PRN IV SEVERE PAIN; Start 06/28/19 at 14:15 Sodium Chloride 80 meq/Sodium Phosphate 3 mmol/ Potassium Chloride 50 meq/ Potassium Phosphate 17 mmol/ Magnesium Sulfate 10 meq/ Multivitamins 10 ml/Chromium/ Copper/Manganese/ Seleni/Zn 1 ml/ Total Parenteral Nutrition/Amino Acids/Dextrose/ Fat Emulsion Intravenous 1,200 ml @ 50 mls/hr TPN CONT IV Last administered on 06/28/19at 22:14; Start 06/28/19 at 22:00; Stop 06/29/19 at 21:59; Status DC Enoxaparin Sodium (Lovenox 40mg Syringe) 40 mg Q24H SQ ; Start 06/29/19 at 14:00; Status Cancel Enoxaparin Sodium (Lovenox 30mg Syringe) 30 mg Q24H SQ Last administered on 07/03/19at 14:30; Start 06/29/19 at 14:00 Sodium Chloride 60 meq/Sodium Phosphate 13 mmol/ Potassium Chloride 40 meq/ Potassium Phosphate 17 mmol/ Magnesium Sulfate 10 meq/ Multivitamins 10 ml/Chromium/ Copper/Manganese/ Seleni/Zn 1 ml/ Total Parenteral Nutrition/Amino Acids/Dextrose/ Fat Emulsion Intravenous 1,200 ml @ 50 mls/hr TPN CONT IV Last administered on 06/29/19at 21:39; Start 06/29/19 at 22:00; Stop 06/30/19 at 21:59; Status DC Magnesium Sulfate 50 ml @ 25 mls/hr 1X ONCE IV Last administered on 06/30/19at 13:46; Start 06/30/19 at 13:00; Stop 06/30/19 at 14:59; Status DC Sodium Chloride 60 meq/Sodium Phosphate 13 mmol/ Potassium Chloride 20 meq/ Potassium Phosphate 17 mmol/ Magnesium Sulfate 10 meq/ Multivitamins 10 ml/Chromium/ Copper/Manganese/ Seleni/Zn 1 ml/ Total Parenteral Nutrition/Amino Acids/Dextrose/ Fat Emulsion Intravenous 1,200 ml @ 50 mls/hr TPN CONT IV Last administered on 06/30/19at 21:26; Start 06/30/19 at 22:00; Stop 07/01/19 at 21:59; Status DC Levothyroxine Sodium (Synthroid) 50 mcg DAILY06 PO Last administered on at 06:12; Start 07/02/19 at 06:00 Pantoprazole Sodium (Protonix) 40 mg DAILYAC PO Last administered on 07/05/19at 09:44; Start 07/02/19 at 07:30 Sodium Acetate 60 meq/Sodium Phosphate 13 mmol/ Potassium Chloride 20 meq/ Potassium Phosphate 17 mmol/ Magnesium Sulfate 10 meq/ Multivitamins 10 ml/Chromium/ Copper/Manganese/ Seleni/Zn 1 ml/ Total Parenteral Nutrition/Amino Acids/Dextrose/ Fat Emulsion Intravenous 1,200 ml @ 50 mls/hr TPN CONT IV Last administered on 07/01/19at 21:47; Start 07/01/19 at 22:00; Stop 07/02/19 at 21:59; Status DC Sodium Acetate 60 meq/Sodium Phosphate 13 mmol/ Potassium Acetate 20 meq/Potassium Phosphate 17 mmol/ Magnesium Sulfate 10 meq/ Multivitamins 10 ml/Chromium/ Copper/Manganese/ Seleni/Zn 1 ml/ Total Parenteral Nutrition/Amino Acids/Dextrose/ Fat Emulsion Intravenous 1,200 ml @ 50 mls/hr TPN CONT IV Last administered on 07/02/19at 22:41; Start 07/02/19 at 22:00; Stop 07/03/19 at 21:59; Status DC Multivitamins (Thera M Plus) 1 tab DAILY PO Last administered on 07/05/19at 09:44; Start 07/03/19 at 12:00 Folic Acid (Folic Acid) 1 mg DAILY PO Last administered on 07/05/19at 09:44; Start 07/03/19 at 12:00 Cyanocobalamin (Vitamin B-12) 1,000 mcg DAILY PO Last administered on 07/05/19at 09:44; Start 07/03/19 at 12:00 Sodium Acetate 60 meq/Sodium Phosphate 13 mmol/ Potassium Acetate 20 meq/Potassium Phosphate 17 mmol/ Magnesium Sulfate 10 meq/ Multivitamins 10 ml/Chromium/ Copper/Manganese/ Seleni/Zn 1 ml/ Total Parenteral Nutrition/Amino Acids/Dextrose/ Fat Emulsion Intravenous 1,200 ml @ 50 mls/hr TPN CONT IV Last administered on 07/03/19at 22:20; Start 07/03/19 at 22:00; Stop 07/04/19 at 21:59; Status DC Sodium Acetate 60 meq/Sodium Phosphate 13 mmol/ Potassium Acetate 20 meq/Potassium Phosphate 17 mmol/ Magnesium Sulfate 10 meq/ Multivitamins 10 ml/Chromium/ Copper/Manganese/ Seleni/Zn 1 ml/ Total Parenteral Nutrition/Amino Acids/Dextrose/ Fat Emulsion Intravenous 1,200 ml @ 50 mls/hr TPN CONT IV Last administered on 07/04/19at 22:04; Start 07/04/19 at 22:00; Stop 07/05/19 at 21:59 Active Scripts Active Reported Aspirin 81 Mg Tab.chew 1 Tab PO DAILY Ultram (Tramadol Hcl) 50 Mg Tablet 50 Mg PO Q4HRS PRN Potassium Chloride 10 Meq Tab.sr.24h 10 Meq PO DAILY Namenda (Memantine Hcl) 10 Mg Tablet 10 Mg PO BID Zofran (Ondansetron Hcl) 4 Mg Tablet 1 Tab PO PRN Q6-8HRS Imodium A-D (Loperamide Hcl) 1 Mg/7.5 Ml Liquid 1 Mg PO PRN PRN Omeprazole 20 Mg Tablet.dr 1 Tab PO DAILY Acetaminophen 325 Mg Tablet 325 Mg PO Q4HRS Donepezil Hcl 10 Mg Tablet 1 Tab PO DAILY Xeloda (Capecitabine) 500 Mg Tablet 2,000 Mg PO Q12HR Buspirone Hcl 5 Mg Tablet 1 Tab PO QID Melatonin 3 Mg Tablet 1 Tab PO QHS Levothyroxine Sodium 50 Mcg Tablet 50 Mcg PO DAILYAC Cerefolin Nac Caplet (Lmfol Ca/Acetyl/Mb12/Algal Oil) 1 Each Tablet 1 Each PO DAILY Xalatan (Latanoprost) 2.5 Ml Drops 1 Drop EACHEYE QHS Magnesium Oxide 400 Mg Tablet 1 Tab PO TID Pepcid (Famotidine) 20 Mg Tablet 20 Mg PO DAILY Ativan (Lorazepam) 0.5 Mg Tablet 0.5 Mg PO Q4HRS PRN Vitals/I & O Vital Sign - Last 24 Hours 07/04/19 07/04/19 07/04/19 07/04/19 15:00 19:00 19:45 23:00 Temp 98.0 97.7 98.3 98.0 97.7 98.3 Pulse 73 76 73 Resp 14 20 20 B/P (MAP) 121/59 (79) 114/55 (74) 102/41 (61) Pulse Ox 99 100 97 O2 Delivery Room Air Room Air Room Air Room Air 07/05/19 07/05/19 07/05/19 03:00 07:00 07:25 Temp 98.7 99.0 98.7 99.0 Pulse 87 80 Resp 20 16 B/P (MAP) 90/46 (61) 105/58 (74) Pulse Ox 95 97 O2 Delivery Room Air Room Air Room Air Intake and Output 07/04/19 07/04/19 07/05/19 14:59 22:59 06:59 Intake Total 320 ml 560 ml 1220 ml Output Total 150 ml Balance 170 ml 560 ml 1220 ml Nutrition Consultation Dietary Evaluation: Recommendations by RD: PPN/TPN Comments: continue with TPN until able to advance diet REC goal diet: regular , mech soft, thins due to usual diet at home. Expected Outcomes/Goals: to meet > 75% est nutr needs via po intake- not met, goal ongoing Malnutrition Findings: Muscle Mass (Severe): Severe Depletion Food and Nutrition Intake (Sev: <50% est energy req 5days Body Fat Depletion (Non Severe: Mod to Severe Weight Status: Underweight MEHDI WARD MD Jul 05, 2019 11:07
--- NOTE | 2019-07-05 13:20 | PDOC ---
Subjective: Subjective: She describes stool that looked dark but "not completely" black yesterday. Has stooled since - now normal color. Tolerating PO, denies pain. Can't remember when she had a colonoscopy. Tells me she gets chemo every couple weeks and had stomach surgery once. Objective: Objective: BUN has been elevated throughout admission. Normal B12. Reviewed w/ nurses - red blood yesterday, green stool overnight. Vital Signs: Vital Signs Date Time Temp Pulse Resp B/P (MAP) Pulse Ox O2 Delivery O2 Flow Rate FiO2 07/05/19 11:00 99.5 83 16 112/58 (76) 99 Room Air 99.5 Labs: Laboratory Tests Test 07/05/19 06:35 White Blood Count 5.4 x10^3/uL Red Blood Count 2.06 x10^6/uL Hemoglobin 7.6 g/dL Hematocrit 22.0 % Mean Corpuscular Volume 107 fL Mean Corpuscular Hemoglobin 37 pg Mean Corpuscular Hemoglobin Concent 34 g/dL Red Cell Distribution Width 21.7 % Platelet Count 246 x10^3/uL Neutrophils (%) (Auto) 65 % Lymphocytes (%) (Auto) 19 % Monocytes (%) (Auto) 12 % Eosinophils (%) (Auto) 2 % Basophils (%) (Auto) 1 % Neutrophils # (Auto) 3.5 x10^3/uL Lymphocytes # (Auto) 1.0 x10^3/uL Monocytes # (Auto) 0.6 x10^3/uL Eosinophils # (Auto) 0.1 x10^3/uL Basophils # (Auto) 0.1 x10^3/uL Sodium Level 141 mmol/L Potassium Level 4.3 mmol/L Chloride Level 109 mmol/L Carbon Dioxide Level 24 mmol/L Anion Gap 8 Blood Urea Nitrogen 21 mg/dL Creatinine 0.8 mg/dL Estimated GFR (Cockcroft-Gault) 68.2 Glucose Level 102 mg/dL Calcium Level 7.8 mg/dL Magnesium Level 2.1 mg/dL Diagnosis: Segment of small bowel, small bowel segmental resection: - Central segmental hemorrhagic infarction with stricture. - Proximal and distal margins of resection viable. PE: GEN: NAD, reading newspaper in chair LUNGS: room air HEART: RRR ABD: soft, non-tender NEURO/PSYCH: A & O �3 A/P: Hematochezia/melena - no recurrence SBO s/p release/resection H/o colon cancer - op note describes ileocolonic anastomosis, ?still gets chemo Macrocytic anemia - Hgb slowly drifting since admission Dementia -- Continue PPI. Diet per surgery. Will check iron. TIM LIRA Jul 05, 2019 13:20
[2019-07-05] MEDS: ENOXAPARIN 30 MG/0.3 ML SYRINGE. SQ SCH (13:38)
[2019-07-05] MEDS: TPN PER PHARMACY MC PRN (13:57)
--- NOTE | 2019-07-05 13:57 | NUR ---
Pharmacy TPN Dosing Note S: ROSA SCHREIBER is a 84 year old F Currently receiving Central Continuous TPN started 06/26/19 B:Pertinent PMH: SBO S/P RESECTION 06/24 Height: 5 feet, 6 inches Weight: 51.048101 kg Current diet: soft diet LABS: Sodium: 141 Potassium: 4.3 Chloride: 109 Calcium: 7.8 Corrected Calcium: 9.32 Magnesium: 2.1 CO2: 21 SCr: 0.9 Glucose: 102 Albumin: 2.1 AST: 33 ALT: 18 TPN FORMULA: TPN TYPE: Central Continuous AMINO ACIDS: 60 gm DEXTROSE: 195 gm LIPIDS: 20 gm SODIUM CHLORIDE: - mEq SODIUM ACETATE: 60 mEq SODIUM PHOSPHATE: 13 mmol POTASSIUM CHLORIDE: - mEq POTASSIUM ACETATE: 20 mEq POTASSIUM PHOSPHATE: 17 mmol MAGNESIUM: 10 mEq CALCIUM: 0 mEq INSULIN: - units MULTIPLE VITAMIN: 10 ml TRACE ELEMENTS: MTE 5 1ML ml(s) TPN PLAN: Continue same. Diet being advanced, still some n/v. R: Continue TPN as above. Will monitor electrolytes, glucose, and tolerance to TPN. ANSELMO SAAVEDRA [facility], 07/05/19 0223
[2019-07-05 15:00] VITALS: BP 102/69
[2019-07-05] MEDS: FERROUS SULFATE 325 MG TABLET. PO SCH (17:00)
[2019-07-05 19:00] VITALS: BP 123/63
[2019-07-05] MEDS ORDERED: DEXTROSE 70% IV SCH ×10 (22:00)
[2019-07-05] MEDS ORDERED: [UNRECOGNIZED DRUG - OTHER] IV SCH ×10 (22:00)
[2019-07-05] MEDS ORDERED: TOTAL PARENTERAL NUTRITION IV SCH ×10 (22:00)
[2019-07-05] MEDS ORDERED: AMINO ACID IV SCH ×10 (22:00)
[2019-07-05] MEDS: LATANOPROST 0.005% OPHTH SOLUTION 2.5ML BOTTLE. OU SCH (22:21)
[2019-07-05 23:00] VITALS: BP 115/53
[2019-07-06 03:00] VITALS: BP 105/59
[2019-07-06] MEDS: LEVOTHYROXINE 50 MCG TABLET PO SCH (06:36)
[2019-07-06 07:00] VITALS: BP 111/75
[2019-07-06] MEDS: FERROUS SULFATE 325 MG TABLET. PO SCH (10:08)
[2019-07-06] MEDS: CYANOCOBALAMIN (VITAMIN B-12) 1,000 MCG TABLET. PO SCH (10:08)
[2019-07-06] MEDS: MULTIVITAMIN with MINERAL TABLET. PO SCH (10:08)
[2019-07-06] MEDS: POTASSIUM CHLORIDE 10 MEQ TABLET.ER. PO SCH (10:08)
[2019-07-06] MEDS: DONEPEZIL HCL 10 MG TABLET. PO SCH (10:08)
[2019-07-06] MEDS: busPIRone 5 MG TABLET. PO SCH ×3 (10:08→17:02)
[2019-07-06] MEDS: PANTOPRAZOLE 40 MG TABLET.DR. PO SCH (10:08)
[2019-07-06] MEDS: FOLIC ACID 1 MG TABLET. PO SCH (10:09)
[2019-07-06 11:00] VITALS: BP 110/72
--- NOTE | 2019-07-06 11:49 | PDOC ---
PROGRESS NOTES Chief Complaint Chief Complaint discharge dx acute bowel obstruction acute abd pain, IMPROVING SLOWLY, JOSE A LIQUIDS, soft diet// vomiting after lunch 07/03 NPO OVERNIGHT now eating full liquids well , 07/06 small bowel obstruction, lactate elevated from this metastatic breast cancer malnutrition, severe protein malnutrition acute on chronic renal failure, vasomotor, cognitive decline, dementia Hx, chronic Small-bowel obstruction secondary to a fibrous adhesion. small bowel segmental resection: - Central segmental hemorrhagic infarction with stricture. - Proximal and distal margins of resection viable. 06/24 kub Grossly unchanged appearance of the abdomen including dilated loops of central small bowel containing dilute enteric contrast. moderate fall risk macrocytic anemia d/c planning 33 min increase activity FULL LIQUIDS 07/05, AAT nurses report good intake parth 07/06 snf bed 07/06 mvi folic acid .8mg po daily b12 1000mcg po daily Past Medical History Cardiovascular: HTN CENTRAL NERVOUS SYSTEM: Dementia Musculoskeletal: Osteoarthritis Endocrine: Hypothyroidism Past Surgical History Past Surgical History: Colon Resection, Other (port placement) Family History Family History: No Significant Social History Smoke: No ALCOHOL: none 28 min pt exam, chart review, > 50% of time spent with exam, chart review, pt care coordination History of Present Illness History of Present Illness Dr. Mccoy, 06/24 ec-lap, , release small-bowel obstruction, small bowel resection with primary anastomosis. renal funciton better still getting a lot of fluid out of NG pain is minimal, change to TPN as no flatus, and still needs NG Vitals Vitals Vital Signs Date Time Temp Pulse Resp B/P (MAP) Pulse Ox O2 Delivery O2 Flow Rate FiO2 07/06/19 11:00 98.1 84 18 110/72 (85) 100 Room Air 98.1 Physical Exam General: Alert, Cooperative, No acute distress Heart: Regular rate, Normal S1, Normal S2 Lungs: Clear Abdomen: Normal bowel sounds, Soft, No tenderness Extremities: No clubbing, No cyanosis, No edema Skin: No rashes, No breakdown, No significant lesion Assessment and Plan Assessmemt and Plan Problems Medical Problems: (1) RUFINO (acute kidney injury) Status: Acute (2) Dehydration Status: Acute (3) Encephalopathy Status: Acute (4) Small bowel obstruction Status: Acute Comment Review of Relevant I have reviewed the following items lola (where applicable) has been applied. Labs Laboratory Tests Test 07/05/19 06:35 White Blood Count 5.4 x10^3/uL (4.0-11.0) Red Blood Count 2.06 x10^6/uL (3.50-5.40) Hemoglobin 7.6 g/dL (12.0-15.5) Hematocrit 22.0 % (36.0-47.0) Mean Corpuscular Volume 107 fL (79-100) Mean Corpuscular Hemoglobin 37 pg (25-35) Mean Corpuscular Hemoglobin Concent 34 g/dL (31-37) Red Cell Distribution Width 21.7 % (11.5-14.5) Platelet Count 246 x10^3/uL (140-400) Neutrophils (%) (Auto) 65 % (31-73) Lymphocytes (%) (Auto) 19 % (24-48) Monocytes (%) (Auto) 12 % (0-9) Eosinophils (%) (Auto) 2 % (0-3) Basophils (%) (Auto) 1 % (0-3) Neutrophils # (Auto) 3.5 x10^3/uL (1.8-7.7) Lymphocytes # (Auto) 1.0 x10^3/uL (1.0-4.8) Monocytes # (Auto) 0.6 x10^3/uL (0.0-1.1) Eosinophils # (Auto) 0.1 x10^3/uL (0.0-0.7) Basophils # (Auto) 0.1 x10^3/uL (0.0-0.2) Sodium Level 141 mmol/L (136-145) Potassium Level 4.3 mmol/L (3.5-5.1) Chloride Level 109 mmol/L (98-107) Carbon Dioxide Level 24 mmol/L (21-32) Anion Gap 8 (6-14) Blood Urea Nitrogen 21 mg/dL (7-20) Creatinine 0.8 mg/dL (0.6-1.0) Estimated GFR (Cockcroft-Gault) 68.2 Glucose Level 102 mg/dL (70-99) Calcium Level 7.8 mg/dL (8.5-10.1) Magnesium Level 2.1 mg/dL (1.8-2.4) Iron Level 26 ug/dL (50-170) Total Iron Binding Capacity 308 ug/dL (250-450) Iron Saturation 8 % (15-34) Microbiology 06/20/19 Urine Culture - Final, Complete 06/20/19 Urine Culture Result 1 (YOBANY) - Final, Complete Medications Current Medications Potassium Chloride/Sodium Chloride 1,000 ml @ 125 mls/hr Q8H IV Last administered on 06/20/19at 07:57; Start 06/19/19 at 22:15; Stop 06/20/19 at 08:50; Status DC Throat Lozenges (Chloraseptic) 1 spray PRN Q2HR PRN PO SORE THROAT, 2ND CHOICE; Start 06/19/19 at 22:15 Throat Lozenges (Cepacol Sore Throat Lozenge) 1 juan PRN Q2HRS PRN PO SORE THROAT, 1ST CHOICE; Start 06/19/19 at 22:15 Sodium Chloride 250 ml @ 250 mls/hr 1X ONCE IV Last administered on 06/20/19at 03:24; Start 06/20/19 at 02:45; Stop 06/20/19 at 03:45; Status DC Ondansetron HCl (Zofran) 4 mg PRN Q6HRS PRN IV NAUSEA/VOMITING Last administered on 07/01/19at 09:08; Start 06/20/19 at 08:00 Buspirone HCl (Buspar) 5 mg QID PO Last administered on 07/06/19at 10:09; Start 06/20/19 at 09:00 Donepezil HCl (Aricept) 10 mg DAILY PO Last administered on 07/06/19at 10:09; Start 06/20/19 at 09:00 Latanoprost (Xalatan) 1 drop QHS OU Last administered on 07/05/19at 22:21; Start 06/20/19 at 21:00 Levothyroxine Sodium (Synthroid) 50 mcg DAILYAC PO ; Start 06/20/19 at 09:00; Stop 06/22/19 at 15:39; Status DC Lorazepam (Ativan) 0.5 mg PRN Q4HRS PRN PO ANXIETY / AGITATION; Start 06/20/19 at 08:45 Potassium Chloride (Klor-Con) 10 meq DAILY PO Last administered on 07/06/19at 10:09; Start 06/20/19 at 09:00 Non-Formulary Medication (Melatonin ) 1 tab QHS PO ; Start 06/20/19 at 21:00; Status UNV Pantoprazole Sodium (Protonix) 40 mg DAILYAC PO ; Start 06/20/19 at 09:00; Stop 06/21/19 at 22:23; Status DC Ondansetron HCl (Zofran Odt) 4 mg PRN Q6HRS PRN PO NAUSEA/VOMITING Last administered on 07/03/19at 08:59; Start 06/20/19 at 09:00 Amino Acids/ Glycerin/ Electrolytes 1,000 ml @ 80 mls/hr [id number] IV Last administered on 06/26/19at 10:41; Start 06/20/19 at 09:00; Stop 06/26/19 at 21:59; Status DC Sodium Chloride 1,000 ml @ 1,000 mls/hr 1X ONCE IV Last administered on 06/20/19at 13:50; Start 06/20/19 at 13:30; Stop 06/20/19 at 14:29; Status DC Methylprednisolone Sodium Succinate (SOLU-Medrol 125MG VIAL) 125 mg 1X ONCE IV Last administered on 06/21/19at 17:15; Start 06/21/19 at 18:00; Stop 06/21/19 at 18:01; Status DC Methylprednisolone Sodium Succinate (SOLU-Medrol 125MG VIAL) 125 mg 1X ONCE IV Last administered on 06/22/19at 01:38; Start 06/22/19 at 00:00; Stop 06/22/19 at 00:01; Status DC Methylprednisolone Sodium Succinate (SOLU-Medrol 125MG VIAL) 125 mg 1X ONCE IV Last administered on 06/22/19at 05:43; Start 06/22/19 at 06:00; Stop 06/22/19 at 06:01; Status DC Diphenhydramine HCl (Benadryl) 50 mg 1X ONCE IVP Last administered on 06/22/19at 07:46; Start 06/22/19 at 07:00; Stop 06/22/19 at 07:01; Status DC Sodium Chloride 500 ml @ 500 mls/hr 1X ONCE IV Last administered on 06/21/19at 15:38; Start 06/21/19 at 15:30; Stop 06/21/19 at 16:29; Status DC Levofloxacin (Levaquin) 250 mg DAILY06 PO ; Start 06/22/19 at 06:00; Stop 06/21/19 at 22:23; Status DC Levofloxacin/ Dextrose 50 ml @ 50 mls/hr Q24H IV ; Start 06/21/19 at 22:30; Stop 06/21/19 at 22:34; Status DC Pantoprazole Sodium (PROTONIX VIAL for IV PUSH) 40 mg DAILYAC IVP Last administered on 07/01/19at 05:45; Start 06/22/19 at 07:30; Stop 07/01/19 at 12:11; Status DC Levofloxacin/ Dextrose 50 ml @ 50 mls/hr Q24H IV Last administered on 06/22/19at 05:43; Start 06/22/19 at 06:00; Stop 06/22/19 at 13:57; Status DC Iohexol (Omnipaque 300 Mg/ml) 400 ml 1X ONCE PO ; Start 06/22/19 at 07:45; Stop 06/22/19 at 07:50; Status DC Info (CONTRAST GIVEN -- Rx MONITORING) 1 each PRN DAILY PRN MC SEE COMMENTS; Start 06/22/19 at 08:00; Stop 06/24/19 at 07:59; Status DC Sodium Chloride 1,000 ml @ 100 mls/hr 1X ONCE IV Last administered on 06/22/19at 11:40; Start 06/22/19 at 11:15; Stop 06/22/19 at 21:14; Status DC Levothyroxine Sodium 25 mcg/ Sodium Chloride 5 ml @ 100 mls/hr Q72H IVP Last administered on 06/29/19at 06:24; Start 06/26/19 at 06:00; Stop 07/01/19 at 12:10; Status DC Sodium Chloride 1,000 ml @ 100 mls/hr 1X ONCE IV Last administered on 06/23/19at 11:59; Start 06/23/19 at 11:45; Stop 06/23/19 at 21:44; Status DC Propofol 20 ml @ As Directed STK-MED ONCE IV ; Start 06/24/19 at 09:27; Stop 06/24/19 at 09:28; Status DC Lidocaine HCl (Lidocaine Pf 2% Vial) 5 ml STK-MED ONCE .ROUTE ; Start 06/24/19 at 09:27; Stop 06/24/19 at 09:28; Status DC Rocuronium [place] (Zemuron) 50 mg STK-MED ONCE .ROUTE ; Start 06/24/19 at 09:28; Stop 06/24/19 at 09:28; Status DC Fentanyl Citrate (Fentanyl 2ml Vial) 100 mcg STK-MED ONCE .ROUTE ; Start 06/24/19 at 09:28; Stop 06/24/19 at 09:28; Status DC Cefazolin Sodium/ Dextrose 50 ml @ 100 mls/hr 1X PREOP PRN IV protocol Last administered on 06/24/19at 11:37; Start 06/24/19 at 06:00; Stop 06/24/19 at 15:00; Status DC Fentanyl Citrate (Fentanyl 2ml Vial) 25 mcg PRN Q5MIN PRN IV MILD PAIN 1-3 Last administered on 06/24/19at 13:48; Start 06/24/19 at 10:00; Stop 06/25/19 at 09:59; Status DC Fentanyl Citrate (Fentanyl 2ml Vial) 50 mcg PRN Q5MIN PRN IV MODERATE TO SEVERE PAIN Last administered on 06/24/19at 14:08; Start 06/24/19 at 10:00; Stop 06/25/19 at 09:59; Status DC Morphine Sulfate (Morphine Sulfate) 1 mg PRN Q10MIN PRN IV SEVERE PAIN 7-10; Start 06/24/19 at 10:00; Stop 06/25/19 at 09:59; Status DC Ringer's Solution 1,000 ml @ 30 mls/hr Q24H IV ; Start 06/24/19 at 10:00; Stop 06/24/19 at 10:14; Status DC Hydromorphone HCl (Dilaudid) 0.5 mg PRN Q10MIN PRN IV SEV PAIN, Second choice; Start 06/24/19 at 10:00; Stop 06/25/19 at 09:59; Status DC Prochlorperazine Edisylate (Compazine) 5 mg PACU PRN PRN IV NAUSEA, MRX1 Last administered on 06/24/19at 13:27; Start 06/24/19 at 10:00; Stop 06/25/19 at 09:59; Status DC Sodium Chloride 1,000 ml @ 40 mls/hr Q24H IV Last administered on 06/24/19at 14:16; Start 06/24/19 at 10:15; Stop 06/27/19 at 10:52; Status DC Bupivacaine HCl/ Epinephrine Bitart (Sensorcain-Mpf Epi 0.5%-1:[id number]) 30 ml 1X ONCE INJ Last administered on 06/24/19at 12:53; Start 06/24/19 at 10:30; Stop 06/24/19 at 10:31; Status DC Desflurane (Suprane) 60 ml STK-MED ONCE IH ; Start 06/24/19 at 11:14; Stop 06/24/19 at 11:15; Status DC Ondansetron HCl (Zofran) 4 mg STK-MED ONCE .ROUTE ; Start 06/24/19 at 11:16; Stop 06/24/19 at 11:16; Status DC Dexamethasone Sodium Phosphate (Decadron) 4 mg STK-MED ONCE .ROUTE ; Start 06/24/19 at 11:17; Stop 06/24/19 at 11:17; Status DC Phenylephrine HCl (PHENYLEPHRINE in 0.9% NACL PF) 1 mg STK-MED ONCE IV ; Start 06/24/19 at 11:21; Stop 06/24/19 at 11:21; Status DC Sodium Chloride 1,000 ml @ 100 mls/hr 1X ONCE IV ; Start 06/24/19 at 11:30; Stop 06/24/19 at 21:29; Status DC Ephedrine Sulfate (ePHEDrine PF IN SALINE SYRINGE) 50 mg STK-MED ONCE IV ; Start 06/24/19 at 11:26; Stop 06/24/19 at 11:26; Status DC Ondansetron HCl (Zofran) 4 mg STK-MED ONCE .ROUTE ; Start 06/24/19 at 11:38; Stop 06/24/19 at 11:38; Status DC Neostigmine Methylsulfate (Neostigmine Methylsulfate) 5 mg STK-MED ONCE .ROUTE ; Start 06/24/19 at 11:39; Stop 06/24/19 at 11:39; Status DC Glycopyrrolate (Robinul) 1 mg STK-MED ONCE .ROUTE ; Start 06/24/19 at 11:39; Stop 06/24/19 at 11:39; Status DC Prochlorperazine Edisylate (Compazine) 10 mg STK-MED ONCE .ROUTE ; Start 06/24/19 at 12:59; Stop 06/24/19 at 13:00; Status DC Fentanyl Citrate (Fentanyl 2ml Vial) 100 mcg STK-MED ONCE .ROUTE ; Start 06/24/19 at 13:08; Stop 06/24/19 at 13:08; Status DC Sodium Chloride (Normal Saline Flush) 3 ml QSHIFT PRN IV AFTER MEDS AND BLOOD DRAWS; Start 06/24/19 at 13:15 Naloxone HCl (Narcan) 0.4 mg PRN Q2MIN PRN IV SEE INSTRUCTIONS; Start 06/24/19 at 13:15 Sodium Chloride 1,000 ml @ 25 mls/hr Q24H IV ; Start 06/24/19 at 13:14; Stop 06/25/19 at 11:05; Status DC Morphine Sulfate (Morphine Sulfate) 4 mg PRN Q4HRS PRN IV MODERATE TO SEVERE PAIN Last administered on 06/24/19at 20:50; Start 06/24/19 at 13:15; Stop 06/28/19 at 13:57; Status DC Sodium Chloride 1,000 ml @ 100 mls/hr 1X ONCE IV Last administered on 06/25/19at 11:04; Start 06/25/19 at 10:30; Stop 06/25/19 at 20:29; Status DC Info (Tpn Per Pharmacy) 1 each PRN DAILY PRN MC SEE COMMENTS Last administered on 07/05/19at 13:57; Start 06/26/19 at 11:15 Sodium Chloride 1,000 ml @ 100 mls/hr 1X ONCE IV Last administered on 06/26/19at 12:51; Start 06/26/19 at 11:15; Stop 06/26/19 at 21:14; Status DC Enoxaparin Sodium (Lovenox 30mg Syringe) 30 mg Q24H SQ Last administered on 06/28/19at 14:16; Start 06/26/19 at 14:00; Stop 06/28/19 at 14:32; Status DC Sodium Chloride 90 meq/Potassium Chloride 50 meq/ Potassium Phosphate 13.6 mmol/Magnesium Sulfate 10 meq/ Calcium Gluconate 10 meq/ Multivitamins 10 ml/Chromium/ Copper/Manganese/ Seleni/Zn 1 ml/ Total Parenteral Nutrition/Amino Acids/Dextrose/ Fat Emulsion Intravenous 1,200 ml @ 50 mls/hr TPN CONT IV Last administered on 06/26/19at 22:42; Start 06/26/19 at 22:00; Stop 06/27/19 at 21:59; Status DC Potassium Phosphate 13.6 mmol/Dextrose 104.5333 ml @ 52.267 m... 1X ONCE IV Last administered on 06/27/19at 14:23; Start 06/27/19 at 13:00; Stop 06/27/19 at 14:59; Status DC Sodium Chloride 90 meq/Potassium Chloride 50 meq/ Potassium Phosphate 17 mmol/ Magnesium Sulfate 10 meq/Calcium Gluconate 10 meq/ Multivitamins 10 ml/Chromium/ Copper/Manganese/ Seleni/Zn 1 ml/ Total Parenteral Nutrition/Amino Acids/Dextrose/ Fat Emulsion Intravenous 1,200 ml @ 50 mls/hr TPN CONT IV Last administered on 06/27/19at 22:00; Start 06/27/19 at 22:00; Stop 06/28/19 at 21:59; Status DC Morphine Sulfate (Morphine Sulfate) 3 mg PRN Q4HRS PRN IV MODERATE PAIN; Start 06/28/19 at 14:00 Morphine Sulfate (Morphine Sulfate) 2 mg PRN Q2HR PRN IV MILD PAIN 1-3 Last administered on 06/29/19at 08:44; Start 06/28/19 at 14:00 Morphine Sulfate (Morphine Sulfate) 4 mg PRN Q4HRS PRN IV SEVERE PAIN; Start 06/28/19 at 14:15 Sodium Chloride 80 meq/Sodium Phosphate 3 mmol/ Potassium Chloride 50 meq/ Potassium Phosphate 17 mmol/ Magnesium Sulfate 10 meq/ Multivitamins 10 ml/Chromium/ Copper/Manganese/ Seleni/Zn 1 ml/ Total Parenteral Nutrition/Amino Acids/Dextrose/ Fat Emulsion Intravenous 1,200 ml @ 50 mls/hr TPN CONT IV Last administered on 06/28/19at 22:14; Start 06/28/19 at 22:00; Stop 06/29/19 at 21:59; Status DC Enoxaparin Sodium (Lovenox 40mg Syringe) 40 mg Q24H SQ ; Start 06/29/19 at 14:00; Status Cancel Enoxaparin Sodium (Lovenox 30mg Syringe) 30 mg Q24H SQ Last administered on 07/05/19at 13:39; Start 06/29/19 at 14:00 Sodium Chloride 60 meq/Sodium Phosphate 13 mmol/ Potassium Chloride 40 meq/ Potassium Phosphate 17 mmol/ Magnesium Sulfate 10 meq/ Multivitamins 10 ml/Chromium/ Copper/Manganese/ Seleni/Zn 1 ml/ Total Parenteral Nutrition/Amino Acids/Dextrose/ Fat Emulsion Intravenous 1,200 ml @ 50 mls/hr TPN CONT IV Last administered on 06/29/19at 21:39; Start 06/29/19 at 22:00; Stop 06/30/19 at 21:59; Status DC Magnesium Sulfate 50 ml @ 25 mls/hr 1X ONCE IV Last administered on 06/30/19at 13:46; Start 06/30/19 at 13:00; Stop 06/30/19 at 14:59; Status DC Sodium Chloride 60 meq/Sodium Phosphate 13 mmol/ Potassium Chloride 20 meq/ Potassium Phosphate 17 mmol/ Magnesium Sulfate 10 meq/ Multivitamins 10 ml/Ch romium/ Copper/Manganese/ Seleni/Zn 1 ml/ Total Parenteral Nutrition/Amino Acids/Dextrose/ Fat Emulsion Intravenous 1,200 ml @ 50 mls/hr TPN CONT IV Last administered on 06/30/19at 21:26; Start 06/30/19 at 22:00; Stop 07/01/19 at 21:59; Status DC Levothyroxine Sodium (Synthroid) 50 mcg DAILY06 PO Last administered on 07/06/19at 06:38; Start 07/02/19 at 06:00 Pantoprazole Sodium (Protonix) 40 mg DAILYAC PO Last administered on 07/06/19at 10:09; Start 07/02/19 at 07:30 Sodium Acetate 60 meq/Sodium Phosphate 13 mmol/ Potassium Chloride 20 meq/ Potassium Phosphate 17 mmol/ Magnesium Sulfate 10 meq/ Multivitamins 10 ml/Chromium/ Copper/Manganese/ Seleni/Zn 1 ml/ Total Parenteral Nutrition/Amino Acids/Dextrose/ Fat Emulsion Intravenous 1,200 ml @ 50 mls/hr TPN CONT IV Last administered on 07/01/19at 21:47; Start 07/01/19 at 22:00; Stop 07/02/19 at 21:59; Status DC Sodium Acetate 60 meq/Sodium Phosphate 13 mmol/ Potassium Acetate 20 meq/Potassium Phosphate 17 mmol/ Magnesium Sulfate 10 meq/ Multivitamins 10 ml /Chromium/ Copper/Manganese/ Seleni/Zn 1 ml/ Total Parenteral Nutrition/Amino Acids/Dextrose/ Fat Emulsion Intravenous 1,200 ml @ 50 mls/hr TPN CONT IV Last administered on 07/02/19 22:41; Start 07/02/19 at 22:00; Stop 07/03/19 at 21:59; Status DC Multivitamins (Thera M Plus) 1 tab DAILY PO Last administered on 07/06/19 10:09; Start 07/03/19 at 12:00 Folic Acid (Folic Acid) 1 mg DAILY PO Last administered on 07/06/19 10:09; Start 07/03/19 at 12:00 Cyanocobalamin (Vitamin B-12) 1,000 mcg DAILY PO Last administered on 07/06/19 10:09; Start 07/03/19 at 12:00 Sodium Acetate 60 meq/Sodium Phosphate 13 mmol/ Potassium Acetate 20 meq/Potassium Phosphate 17 mmol/ Magnesium Sulfate 10 meq/ Multivitamins 10 ml/Chromium/ Copper/Manganese/ Seleni/Zn 1 ml/ Total Parenteral Nutrition/Amino Acids/Dextrose/ Fat Emulsion Intravenous 1,200 ml @ 50 mls/hr TPN CONT IV Last administered on 07/03/19at 22:20; Start 07/03/19 at 22:00; Stop 07/04/19 at 21:59; Status DC Sodium Acetate 60 meq/Sodium Phosphate 13 mmol/ Potassium Acetate 20 meq/Potassium Phosphate 17 mmol/ Magnesium Sulfate 10 meq/ Multivitamins 10 ml/Chromium/ Copper/Manganese/ Seleni/Zn 1 ml/ Total Parenteral Nutrition/Amino Acids/Dextrose/ Fat Emulsion Intravenous 1,200 ml @ 50 mls/hr TPN CONT IV Last administered on 07/04/19at 22:04; Start 07/04/19 at 22:00; Stop 07/05/19 at 21:59; Status DC Sodium Acetate 60 meq/Sodium Phosphate 13 mmol/ Potassium Acetate 20 meq/Potassium Phosphate 17 mmol/ Magnesium Sulfate 10 meq/ Multivitamins 10 ml/Chromium/ Copper/Manganese/ Seleni/Zn 1 ml/ Total Parenteral Nutrition/Amino Acids/Dextrose/ Fat Emulsion Intravenous 1,200 ml @ 50 mls/hr TPN CONT IV Last administered on 07/05/19at 22:21; Start 07/05/19 at 22:00; Stop 07/06/19 at 21:59 Ferrous Sulfate (Feosol) 325 mg BIDWMEALS PO Last administered on 07/06/19at 10:09; Start 07/05/19 at 17:00 Active Scripts Active Reported Aspirin 81 Mg Tab.chew 1 Tab PO DAILY Ultram (Tramadol Hcl) 50 Mg Tablet 50 Mg PO Q4HRS PRN Potassium Chloride 10 Meq Tab.sr.24h 10 Meq PO DAILY Namenda (Memantine Hcl) 10 Mg Tablet 10 Mg PO BID Zofran (Ondansetron Hcl) 4 Mg Tablet 1 Tab PO PRN Q6-8HRS Imodium A-D (Loperamide Hcl) 1 Mg/7.5 Ml Liquid 1 Mg PO PRN PRN Omeprazole 20 Mg Tablet.dr 1 Tab PO DAILY Acetaminophen 325 Mg Tablet 325 Mg PO Q4HRS Donepezil Hcl 10 Mg Tablet 1 Tab PO DAILY Xeloda (Capecitabine) 500 Mg Tablet 2,000 Mg PO Q12HR Buspirone Hcl 5 Mg Tablet 1 Tab PO QID Melatonin 3 Mg Tablet 1 Tab PO QHS Levothyroxine Sodium 50 Mcg Tablet 50 Mcg PO DAILYAC Cerefolin Nac Caplet (Lmfol Ca/Acetyl/Mb12/Algal Oil) 1 Each Tablet 1 Each PO DAILY Xalatan (Latanoprost) 2.5 Ml Drops 1 Drop EACHEYE QHS Magnesium Oxide 400 Mg Tablet 1 Tab PO TID Pepcid (Famotidine) 20 Mg Tablet 20 Mg PO DAILY Ativan (Lorazepam) 0.5 Mg Tablet 0.5 Mg PO Q4HRS PRN Vitals/I & O Vital Sign - Last 24 Hours 07/05/19 07/05/19 07/05/19 07/05/19 15:00 19:00 19:45 23:00 Temp 97.7 98.8 97.5 97.7 98.8 97.5 Pulse 96 88 84 Resp 16 16 16 B/P (MAP) 102/69 (80) 123/63 (83) 115/53 (73) Pulse Ox 99 99 97 O2 Delivery Room Air Room Air Room Air Room Air 07/06/19 07/06/19 07/06/19 07/06/19 03:00 07:00 08:00 11:00 Temp 98.9 97.9 98.1 98.9 97.9 98.1 Pulse 74 18 84 Resp 16 18 18 B/P (MAP) 105/59 (74) 111/75 (87) 110/72 (85) Pulse Ox 96 100 100 O2 Delivery Room Air Room Air Room Air Room Air Intake and Output 07/05/19 07/05/19 07/06/19 14:59 22:59 06:59 Intake Total 660 ml 1440 ml Balance 660 ml 1440 ml Nutrition Consultation Dietary Evaluation: Recommendations by RD: PPN/TPN Comments: continue with TPN until able to advance diet REC goal diet: regular , mech soft, thins due to usual diet at home. Expected Outcomes/Goals: to meet > 75% est nutr needs via po intake- not met, goal ongoing Malnutrition Findings: Muscle Mass (Severe): Severe Depletion Food and Nutrition Intake (Sev: <50% est energy req 5days Body Fat Depletion (Non Severe: Mod to Severe Weight Status: Underweight MEHDI WARD MD Jul 06, 2019 11:49
--- NOTE | 2019-07-06 11:56 | PDOC ---
Objective: Objective: Reviewed w/ nurse - tolerated full liquids, felt nauseated after pills. Vital Signs: Vital Signs Date Time Temp Pulse Resp B/P (MAP) Pulse Ox O2 Delivery O2 Flow Rate FiO2 07/06/19 11:00 98.1 84 18 110/72 (85) 100 Room Air 98.1 PE: GEN: emesis basin w/ saliva NEURO/PSYCH: sleeping in chair, not awakened A/P: Hematochezia/melena - no recurrence SBO s/p release/resection H/o colon cancer Macrocytic anemia, iron deficiency -- No recurrent bleeding. Continue per surgery. Would take iron when reliably eating. TIM LIRA Jul 06, 2019 11:56
[2019-07-06] MEDS: TPN PER PHARMACY MC PRN (12:31)
--- NOTE | 2019-07-06 12:31 | NUR ---
Pharmacy TPN Dosing Note S: ABDOULROSA Pascual is a 84 year old F Currently receiving Central Continuous TPN started 06/26/19 B:Pertinent PMH: SBO S/P RESECTION 06/24 TPN FORMULA: TPN TYPE: Central Continuous AMINO ACIDS: 60 gm DEXTROSE: 195 gm LIPIDS: 20 gm SODIUM CHLORIDE: - mEq SODIUM ACETATE: 60 mEq SODIUM PHOSPHATE: 13 mmol POTASSIUM CHLORIDE: - mEq POTASSIUM ACETATE: 20 mEq POTASSIUM PHOSPHATE: 17 mmol MAGNESIUM: 10 mEq CALCIUM: 0 mEq INSULIN: - units MULTIPLE VITAMIN: 10 ml TRACE ELEMENTS: MTE 5 1ML ml(s) TPN PLAN: 07/06 NO LABS TODAY, CONT SAME TPN, LABS ORDERED q MON,NAILA R: Continue TPN Will monitor electrolytes, glucose, and tolerance to TPN. JENNIFER DURANT [facility], 07/06/19 [id number]
--- NOTE | 2019-07-06 13:18 | PDOC ---
SURGICAL PROGRESS NOTE Subjective Ms Schumacher is sleeping soundly, I did not wake her Vital Signs Vital Signs Date Time Temp Pulse Resp B/P (MAP) Pulse Ox O2 Delivery O2 Flow Rate FiO2 07/06/19 11:00 98.1 84 18 110/72 (85) 100 Room Air 98.1 I&O Intake and Output 07/06/19 07:00 Intake Total 2100 ml Balance 2100 ml Intake Oral 900 ml IV Total 600 ml Other 600 ml # Voids 7 # Bowel Movements 3 Labs Laboratory Tests Test 07/05/19 06:35 White Blood Count 5.4 x10^3/uL (4.0-11.0) Red Blood Count 2.06 x10^6/uL (3.50-5.40) Hemoglobin 7.6 g/dL (12.0-15.5) Hematocrit 22.0 % (36.0-47.0) Mean Corpuscular Volume 107 fL (79-100) Mean Corpuscular Hemoglobin 37 pg (25-35) Mean Corpuscular Hemoglobin Concent 34 g/dL (31-37) Red Cell Distribution Width 21.7 % (11.5-14.5) Platelet Count 246 x10^3/uL (140-400) Neutrophils (%) (Auto) 65 % (31-73) Lymphocytes (%) (Auto) 19 % (24-48) Monocytes (%) (Auto) 12 % (0-9) Eosinophils (%) (Auto) 2 % (0-3) Basophils (%) (Auto) 1 % (0-3) Neutrophils # (Auto) 3.5 x10^3/uL (1.8-7.7) Lymphocytes # (Auto) 1.0 x10^3/uL (1.0-4.8) Monocytes # (Auto) 0.6 x10^3/uL (0.0-1.1) Eosinophils # (Auto) 0.1 x10^3/uL (0.0-0.7) Basophils # (Auto) 0.1 x10^3/uL (0.0-0.2) Sodium Level 141 mmol/L (136-145) Potassium Level 4.3 mmol/L (3.5-5.1) Chloride Level 109 mmol/L (98-107) Carbon Dioxide Level 24 mmol/L (21-32) Anion Gap 8 (6-14) Blood Urea Nitrogen 21 mg/dL (7-20) Creatinine 0.8 mg/dL (0.6-1.0) Estimated GFR (Cockcroft-Gault) 68.2 Glucose Level 102 mg/dL (70-99) Calcium Level 7.8 mg/dL (8.5-10.1) Magnesium Level 2.1 mg/dL (1.8-2.4) Iron Level 26 ug/dL (50-170) Total Iron Binding Capacity 308 ug/dL (250-450) Iron Saturation 8 % (15-34) Problem List Problems Medical Problems: (1) RUFINO (acute kidney injury) Status: Acute (2) Dehydration Status: Acute (3) Encephalopathy Status: Acute (4) Small bowel obstruction Status: Acute Assessment/Plan no new surgical recs continue supportive care placement? HUSSEIN WEINER MD Jul 06, 2019 13:18
--- NOTE | 2019-07-06 13:35 | PDOC3 ---
Discharge Summary Date of Admission: Jun 19, 2019 Date of Discharge: Jul 06, 2019 Follow-Up: 3-5 days Admitting Diagnosis comment: discharge dx acute bowel obstruction acute abd pain, IMPROVING SLOWLY, JOSE A LIQUIDS, soft diet// vomiting after lunch 07/03 NPO OVERNIGHT now eating full liquids well , 07/06 small bowel obstruction, lactate elevated from this metastatic breast cancer malnutrition, severe protein malnutrition acute on chronic renal failure, vasomotor, cognitive decline, dementia Hx, chronic Small-bowel obstruction secondary to a fibrous adhesion. small bowel segmental resection: - Central segmental hemorrhagic infarction with stricture. - Proximal and distal margins of resection viable. 06/24 kub Grossly unchanged appearance of the abdomen including dilated loops of central small bowel containing dilute enteric contrast. moderate fall risk macrocytic anemia d/c planning 33 min increase activity FULL LIQUIDS 07/05, AAT //// nurses report good intake now 07/06 snf bed 07/06 mvi folic acid .8mg po daily b12 1000mcg po daily Past Medical History Cardiovascular: HTN CENTRAL NERVOUS SYSTEM: Dementia Musculoskeletal: Osteoarthritis Endocrine: Hypothyroidism Past Surgical History Past Surgical History: Colon Resection, Other (port placement) Family History Family History: No Significant Social History Smoke: No ALCOHOL: none 28 min pt exam, chart review, > 50% of time spent with exam, chart review, pt care coordination History of Present Illness History of Present Illness Dr. Mccoy, 06/24 ec-lap, , release small-bowel obstruction, small bowel resection with primary anastomosis. renal funciton better still getting a lot of fluid out of NG pain is minimal, change to TPN as no flatus, and still needs NG Vitals Vitals Vital Signs Date Time Temp Pulse Resp B/P (MAP) Pulse Ox O2 Delivery O2 Flow Rate FiO2 07/06/19 11:00 98.1 84 18 110/72 (85) 100 Room Air 98.1 Physical Exam General: Alert, Cooperative, No acute distress Heart: Regular rate, Normal S1, Normal S2 Lungs: Clear Abdomen: Normal bowel sounds, Soft, No tenderness Extremities: No clubbing, No cyanosis, No edema Skin: No rashes, No breakdown, No significant lesion FINAL DIAGNOSIS Problems Medical Problems: (1) RUFINO (acute kidney injury) Status: Acute (2) Dehydration Status: Acute (3) Encephalopathy Status: Acute (4) Small bowel obstruction Status: Acute Brief Hospital Course Ms. Endy is a 84 old [sex] who presented with [ ] Discharge Medications Current Medications Potassium Chloride/Sodium Chloride 1,000 ml @ 125 mls/hr Q8H IV Last administered on 06/20/19at 07:57; Start 06/19/19 at 22:15; Stop 06/20/19 at 08:50; Status DC Throat Lozenges (Chloraseptic) 1 spray PRN Q2HR PRN PO SORE THROAT, 2ND CHOICE; Start 06/19/19 at 22:15 Throat Lozenges (Cepacol Sore Throat Lozenge) 1 juan PRN Q2HRS PRN PO SORE THR OAT, 1ST CHOICE; Start 06/19/19 at 22:15 Sodium Chloride 250 ml @ 250 mls/hr 1X ONCE IV Last administered on 06/20/19at 03:24; Start 06/20/19 at 02:45; Stop 06/20/19 at 03:45; Status DC Ondansetron HCl (Zofran) 4 mg PRN Q6HRS PRN IV NAUSEA/VOMITING Last administered on 07/01/19at 09:08; Start 06/20/19 at 08:00 Buspirone HCl (Buspar) 5 mg QID PO Last administered on 07/06/19 13:12; Start 06/20/19 at 09:00 Donepezil HCl (Aricept) 10 mg DAILY PO Last administered on 07/06/19at 10:09; Start 06/20/19 at 09:00 Latanoprost (Xalatan) 1 drop QHS OU Last administered on 07/05/19at 22:21; Start 06/20/19 at 21:00 Levothyroxine Sodium (Synthroid) 50 mcg DAILYAC PO ; Start 06/20/19 at 09:00; Stop 06/22/19 at 15:39; Status DC Lorazepam (Ativan) 0.5 mg PRN Q4HRS PRN PO ANXIETY / AGITATION; Start 06/20/19 at 08:45 Potassium Chloride (Klor-Con) 10 meq DAILY PO Last administered on 07/06/19at 10 :09; Start 06/20/19 at 09:00 Non-Formulary Medication (Melatonin ) 1 tab QHS PO ; Start 06/20/19 at 21:00; Status UNV Pantoprazole Sodium (Protonix) 40 mg DAILYAC PO ; Start 06/20/19 at 09:00; Stop 06/21/19 at 22:23; Status DC Ondansetron HCl (Zofran Odt) 4 mg PRN Q6HRS PRN PO NAUSEA/VOMITING Last administered on 07/03/19at 08:59; Start 06/20/19 at 09:00 Amino Acids/ Glycerin/ Electrolytes 1,000 ml @ 80 mls/hr [id number] IV Last administered on 06/26/19at 10:41; Start 06/20/19 at 09:00; Stop 06/26/19 at 21: 59; Status DC Sodium Chloride 1,000 ml @ 1,000 mls/hr 1X ONCE IV Last administered on 06/20/19at 13:50; Start 06/20/19 at 13:30; Stop 06/20/19 at 14:29; Status DC Methylprednisolone Sodium Succinate (SOLU-Medrol 125MG VIAL) 125 mg 1X ONCE IV Last administered on 06/21/19at 17:15; Start 06/21/19 at 18:00; Stop 06/21/19 at 18:01; Status DC Methylprednisolone Sodium Succinate (SOLU-Medrol 125MG VIAL) 125 mg 1X ONCE IV Last administered on 06/22/19at 01:38; Start 06/22/19 at 00:00; Stop 06/22/19 at 00:01; Status DC Methylprednisolone Sodium Succinate (SOLU-Medrol 125MG VIAL) 125 mg 1X ONCE IV Last administered on 06/22/19at 05:43; Start 06/22/19 at 06:00; Stop 06/22/19 at 06:01; Status DC Diphenhydramine HCl (Benadryl) 50 mg 1X ONCE IVP Last administered on 06/22/19at 07:46; Start 06/22/19 at 07:00; Stop 06/22/19 at 07:01; Status DC Sodium Chloride 500 ml @ 500 mls/hr 1X ONCE IV Last administered on 06/21/19at 15:38; Start 06/21/19 at 15:30; Stop 06/21/19 at 16:29; Status DC Levofloxacin (Levaquin) 250 mg DAILY06 PO ; Start 06/22/19 at 06:00; Stop 06/21/19 at 22:23; Status DC Levofloxacin/ Dextrose 50 ml @ 50 mls/hr Q24H IV ; Start 06/21/19 at 22:30; Stop 06/21/19 at 22:34; Status DC Pantoprazole Sodium (PROTONIX VIAL for IV PUSH) 40 mg DAILYAC IVP Last administered on 07/01/19at 05:45; Start 06/22/19 at 07:30; Stop 07/01/19 at 12:11; Status DC Levofloxacin/ Dextrose 50 ml @ 50 mls/hr Q24H IV Last administered on 06/22/19at 05:43; Start 06/22/19 at 06:00; Stop 06/22/19 at 13:57; Status DC Iohexol (Omnipaque 300 Mg/ml) 400 ml 1X ONCE PO ; Start 06/22/19 at 07:45; Stop 06/22/19 at 07:50; Status DC Info (CONTRAST GIVEN -- Rx MONITORING) 1 each PRN DAILY PRN MC SEE COMMENTS; Start 06/22/19 at 08:00; Stop 06/24/19 at 07:59; Status DC Sodium Chloride 1,000 ml @ 100 mls/hr 1X ONCE IV Last administered on 06/22/19at 11:40; Start 06/22/19 at 11:15; Stop 06/22/19 at 21:14; Status DC Levothyroxine Sodium 25 mcg/ Sodium Chloride 5 ml @ 100 mls/hr Q72H IVP Last administered on 06/29/19at 06:24; Start 06/26/19 at 06:00; Stop 07/01/19 at 12:10; Status DC Sodium Chloride 1,000 ml @ 100 mls/hr 1X ONCE IV Last administered on 06/23at 11:59; Start 06/23/19 at 11:45; Stop 06/23/19 at 21:44; Status DC Propofol 20 ml @ As Directed STK-MED ONCE IV ; Start 06/24/19 at 09:27; Stop 06/24/19 at 09:28; Status DC Lidocaine HCl (Lidocaine Pf 2% Vial) 5 ml STK-MED ONCE .ROUTE ; Start 06/24/19 at 09:27; Stop 06/24/19 at 09:28; Status DC Rocuronium Paulina (Zemuron) 50 mg STK-MED ONCE .ROUTE ; Start 06/24/19 at 09:28 ; Stop 06/24/19 at 09:28; Status DC Fentanyl Citrate (Fentanyl 2ml Vial) 100 mcg STK-MED ONCE .ROUTE ; Start 06/24/19 at 09:28; Stop 06/24/19 at 09:28; Status DC Cefazolin Sodium/ Dextrose 50 ml @ 100 mls/hr 1X PREOP PRN IV protocol Last administered on 06/24/19at 11:37; Start 06/24/19 at 06:00; Stop 06/24/19 at 15:00; Status DC Fentanyl Citrate (Fentanyl 2ml Vial) 25 mcg PRN Q5MIN PRN IV MILD PAIN 1-3 Last administered on 06/24/19at 13:48; Start 06/24/19 at 10:00; Stop 06/25/19 at 09:59; Status DC Fentanyl Citrate (Fentanyl 2ml Vial) 50 mcg PRN Q5MIN PRN IV MODERATE TO SEVERE PAIN Last administered on 06/24/19at 14:08; Start 06/24/19 at 10:00; Stop 06/25/19 at 09:59; Status DC Morphine Sulfate (Morphine Sulfate) 1 mg PRN Q10MIN PRN IV SEVERE PAIN 7-10; Start 06/24/19 at 10:00; Stop 06/25/19 at 09:59; Status DC Ringer's Solution 1,000 ml @ 30 mls/hr Q24H IV ; Start 06/24/19 at 10:00; Stop 06/24/19 at 10:14; Status DC Hydromorphone HCl (Dilaudid) 0.5 mg PRN Q10MIN PRN IV SEV PAIN, Second choice; Start 06/24/19 at 10:00; Stop 06/25/19 at 09:59; Status DC Prochlorperazine Edisylate (Compazine) 5 mg PACU PRN PRN IV NAUSEA, MRX1 Last administered on 06/24/19at 13:27; Start 06/24/19 at 10:00; Stop 06/25/19 at 09:59; Status DC Sodium Chloride 1,000 ml @ 40 mls/hr Q24H IV Last administered on 06/24/19at 14:16; Start 06/24/19 at 10:15; Stop 06/27/19 at 10:52; Status DC Bupivacaine HCl/ Epinephrine Bitart (Sensorcain-Mpf Epi 0.5%-[id number]) 30 ml 1X ONCE INJ Last administered on 06/24/19at 12:53; Start 06/24/19 at 10:30; Stop 06/24/19 at 10:31; Status DC Desflurane (Suprane) 60 ml STK-MED ONCE IH ; Start 06/24/19 at 11:14; Stop at 11:15; Status DC Ondansetron HCl (Zofran) 4 mg STK-MED ONCE .ROUTE ; Start 06/24/19 at 11:16; Stop 06/24/19 at 11:16; Status DC Dexamethasone Sodium Phosphate (Decadron) 4 mg STK-MED ONCE .ROUTE ; Start 06/24/19 at 11:17; Stop 06/24/19 at 11:17; Status DC Phenylephrine HCl (PHENYLEPHRINE in 0.9% NACL PF) 1 mg STK-MED ONCE IV ; Start 06/24/19 at 11:21; Stop 06/24/19 at 11:21; Status DC Sodium Chloride 1,000 ml @ 100 mls/hr 1X ONCE IV ; Start 06/24/19 at 11:30; Stop 06/24/19 at 21:29; Status DC Ephedrine Sulfate (ePHEDrine PF IN SALINE SYRINGE) 50 mg STK-MED ONCE IV ; Start 06/24/19 at 11:26; Stop 06/24/19 at 11:26; Status DC Ondansetron HCl (Zofran) 4 mg STK-MED ONCE .ROUTE ; Start 06/24/19 at 11:38; Stop 06/24/19 at 11:38; Status DC Neostigmine Methylsulfate (Neostigmine Methylsulfate) 5 mg STK-MED ONCE .ROUTE ; Start 06/24/19 at 11:39; Stop 06/24/19 at 11:39; Status DC Glycopyrrolate (Robinul) 1 mg STK-MED ONCE .ROUTE ; Start 06/24/19 at 11:39; Stop 06/24/19 at 11:39; Status DC Prochlorperazine Edisylate (Compazine) 10 mg STK-MED ONCE .ROUTE ; Start 06/24/19 at 12:59; Stop 06/24/19 at 13:00; Status DC Fentanyl Citrate (Fentanyl 2ml Vial) 100 mcg STK-MED ONCE .ROUTE ; Start 06/24/19 at 13:08; Stop 06/24/19 at 13:08; Status DC Sodium Chloride (Normal Saline Flush) 3 ml QSHIFT PRN IV AFTER MEDS AND BLOOD DRAWS; Start 06/24/19 at 13:15 Naloxone HCl (Narcan) 0.4 mg PRN Q2MIN PRN IV SEE INSTRUCTIONS; Start 06/24/19 at 13:15 Sodium Chloride 1,000 ml @ 25 mls/hr Q24H IV ; Start 06/24/19 at 13:14; Stop 06/25/19 at 11:05; Status DC Morphine Sulfate (Morphine Sulfate) 4 mg PRN Q4HRS PRN IV MODERATE TO SEVERE PAIN Last administered on 06/24/19at 20:50; Start 06/24/19 at 13:15; Stop 06/28/19 at 13:57; Status DC Sodium Chloride 1,000 ml @ 100 mls/hr 1X ONCE IV Last administered on 06/25/19at 11:04; Start 06/25/19 at 10:30; Stop 06/25/19 at 20:29; Status DC Info (Tpn Per Pharmacy) 1 each PRN DAILY PRN MC SEE COMMENTS Last administered on 07/06/19at 12:31; Start 06/26/19 at 11:15 Sodium Chloride 1,000 ml @ 100 mls/hr 1X ONCE IV Last administered on 06/26/19at 12:51; Start 06/26/19 at 11:15; Stop 06/26/19 at 21:14; Status DC Enoxaparin Sodium (Lovenox 30mg Syringe) 30 mg Q24H SQ Last administered on 06/28/19at 14:16; Start 06/26/19 at 14:00; Stop 06/28/19 at 14:32; Status DC Sodium Chloride 90 meq/Potassium Chloride 50 meq/ Potassium Phosphate 13.6 mmol/Magnesium Sulfate 10 meq/ Calcium Gluconate 10 meq/ Multivitamins 10 ml/Chromium/ Copper/Manganese/ Seleni/Zn 1 ml/ Total Parenteral Nutrition/Amino Acids/Dextrose/ Fat Emulsion Intravenous 1,200 ml @ 50 mls/hr TPN CONT IV Last administered on 06/26/19at 22:42; Start 06/26/19 at 22:00; Stop 06/27/19 at 21:59; Status DC Potassium Phosphate 13.6 mmol/Dextrose 104.5333 ml @ 52.267 m... 1X ONCE IV Last administered on 06/27/19at 14:23; Start 06/27/19 at 13:00; Stop 06/27/19 at 14:59; Status DC Sodium Chloride 90 meq/Potassium Chloride 50 meq/ Potassium Phosphate 17 mmol/ Magnesium Sulfate 10 meq/Calcium Gluconate 10 meq/ Multivitamins 10 ml/Chromium/ Copper/Manganese/ Seleni/Zn 1 ml/ Total Parenteral Nutrition/Amino Acids/Dextrose/ Fat Emulsion Intravenous 1,200 ml @ 50 mls/hr TPN CONT IV Last administered on 06/27/19at 22:00; Start 06/27/19 at 22:00; Stop 06/28/19 at 21:59; Status DC Morphine Sulfate (Morphine Sulfate) 3 mg PRN Q4HRS PRN IV MODERATE PAIN; Start 06/28/19 at 14:00 Morphine Sulfate (Morphine Sulfate) 2 mg PRN Q2HR PRN IV MILD PAIN 1-3 Last administered on 06/29/19at 08:44; Start 06/28/19 at 14:00 Morphine Sulfate (Morphine Sulfate) 4 mg PRN Q4HRS PRN IV SEVERE PAIN; Start 06/28/19 at 14:15 Sodium Chloride 80 meq/Sodium Phosphate 3 mmol/ Potassium Chloride 50 meq/ Potassium Phosphate 17 mmol/ Magnesium Sulfate 10 meq/ Multivitamins 10 ml/Chromium/ Copper/Manganese/ Seleni/Zn 1 ml/ Total Parenteral Nutrition/Amino Acids/Dextrose/ Fat Emulsion Intravenous 1,200 ml @ 50 mls/hr TPN CONT IV Last administered on 06/28/19at 22:14; Start 06/28/19 at 22:00; Stop 06/29/19 at 21:59; Status DC Enoxaparin Sodium (Lovenox 40mg Syringe) 40 mg Q24H SQ ; Start 06/29/19 at 14:00; Status Cancel Enoxaparin Sodium (Lovenox 30mg Syringe) 30 mg Q24H SQ Last administered on at 13:39; Start 06/29/19 at 14:00 Sodium Chloride 60 meq/Sodium Phosphate 13 mmol/ Potassium Chloride 40 meq/ Potassium Phosphate 17 mmol/ Magnesium Sulfate 10 meq/ Multivitamins 10 ml/Chromium/ Copper/Manganese/ Seleni/Zn 1 ml/ Total Parenteral Nutrition/Amino Acids/Dextrose/ Fat Emulsion Intravenous 1,200 ml @ 50 mls/hr TPN CONT IV Last administered on 06/29/19at 21:39; Start 06/29/19 at 22:00; Stop 06/30/19 at 21:59; Status DC Magnesium Sulfate 50 ml @ 25 mls/hr 1X ONCE IV Last administered on 06/30/19at 13:46; Start 06/30/19 at 13:00; Stop 06/30/19 at 14:59; Status DC Sodium Chloride 60 meq/Sodium Phosphate 13 mmol/ Potassium Chloride 20 meq/ Potassium Phosphate 17 mmol/ Magnesium Sulfate 10 meq/ Multivitamins 10 ml/Chromium/ Copper/Manganese/ Seleni/Zn 1 ml/ Total Parenteral Nutrition/Amino Acids/Dextrose/ Fat Emulsion Intravenous 1,200 ml @ 50 mls/hr TPN CONT IV [place] [facility] administered on 06/30/19at 21:26; Start 06/30/19 at 22:00; Stop 07/01/19 at 21:59; Status DC Levothyroxine Sodium (Synthroid) 50 mcg DAILY06 PO Last administered on 07/06/19at 06:38; Start 07/02/19 at 06:00 Pantoprazole Sodium (Protonix) 40 mg DAILYAC PO Last administered on 07/06/19at 10:09; Start 07/02/19 at 07:30 Sodium Acetate 60 meq/Sodium Phosphate 13 mmol/ Potassium Chloride 20 meq/ Potassium Phosphate 17 mmol/ Magnesium Sulfate 10 meq/ Multivitamins 10 ml/Chromium/ Copper/Manganese/ Seleni/Zn 1 ml/ Total Parenteral Nutrition/Amino Acids/Dextrose/ Fat Emulsion Intravenous 1,200 ml @ 50 mls/hr TPN CONT IV Last administered on 07/01/19at 21:47; Start 07/01/19 at 22:00; Stop 07/02/19 at 21:59; Status DC Sodium Acetate 60 meq/Sodium Phosphate 13 mmol/ Potassium Acetate 20 meq/Potassium Phosphate 17 mmol/ Magnesium Sulfate 10 meq/ Multivitamins 10 ml/Chromium/ Copper/Manganese/ Seleni/Zn 1 ml/ Total Parenteral Nutrition/Amino Acids/Dextrose/ Fat Emulsion Intravenous 1,200 ml @ 50 mls/hr TPN CONT IV Last administered on 07/02/19 22:41; Start 07/02/19 at 22:00; Stop 07/03/19 at 21:59; Status DC Multivitamins (Thera M Plus) 1 tab DAILY PO Last administered on 07/06/19 10:09; Start 07/03/19 at 12:00 Folic Acid (Folic Acid) 1 mg DAILY PO Last administered on 07/06/19 10:09; Start 07/03/19 at 12:00 Cyanocobalamin (Vitamin B-12) 1,000 mcg DAILY PO Last administered on 07/06/19 10:09; Start 07/03/19 at 12:00 Sodium Acetate 60 meq/Sodium Phosphate 13 mmol/ Potassium Acetate 20 meq/Potassium Phosphate 17 mmol/ Magnesium Sulfate 10 meq/ Multivitamins 10 ml/Chromium/ Copper/Manganese/ Seleni/Zn 1 ml/ Total Parenteral Nutrition/Amino Acids/Dextrose/ Fat Emulsion Intravenous 1,200 ml @ 50 mls/hr TPN CONT IV Last administered on 07/03/19at 22:20; Start 07/03/19 at 22:00; Stop 07/04/19 at 21:59; Status DC Sodium Acetate 60 meq/Sodium Phosphate 13 mmol/ Potassium Acetate 20 meq/Pota ssium Phosphate 17 mmol/ Magnesium Sulfate 10 meq/ Multivitamins 10 ml/Chromium/ Copper/Manganese/ Seleni/Zn 1 ml/ Total Parenteral Nutrition/Amino Acids/Dextrose/ Fat Emulsion Intravenous 1,200 ml @ 50 mls/hr TPN CONT IV Last administered on 07/04/19at 22:04; Start 07/04/19 at 22:00; Stop 07/05/19 at 21:59; Status DC Sodium Acetate 60 meq/Sodium Phosphate 13 mmol/ Potassium Acetate 20 meq/Potassium Phosphate 17 mmol/ Magnesium Sulfate 10 meq/ Multivitamins 10 ml/Chromium/ Copper/Manganese/ Seleni/Zn 1 ml/ Total Parenteral Nutrition/Amino Acids/Dextrose/ Fat Emulsion Intravenous 1,200 ml @ 50 mls/hr TPN CONT IV Last administered on 07/05/19at 22:21; Start 07/05/19 at 22:00; Stop 07/06/19 at 21:59 Ferrous Sulfate (Feosol) 325 mg BIDWMEALS PO Last administered on 07/06/19 10:09; Start 07/05/19 at 17:00; Stop 07/06/19 at 11:54; Status DC Sodium Acetate 60 meq/Sodium Phosphate 13 mmol/ Potassium Acetate 20 meq/Potassium Phosphate 17 mmol/ Magnesium Sulfate 10 meq/ Multivitamins 10 ml/Chromium/ Copper/Manganese/ Seleni/Zn 1 ml/ Total Parenteral Nutrition/Amino Acids/Dextrose/ Fat Emulsion Intravenous 1,200 ml @ 50 mls/hr TPN CONT IV ; Start 07/06/19 at 22:00; Stop 07/07/19 at 21:59 Active Scripts Active Reported Aspirin 81 Mg Tab.chew 1 Tab PO DAILY Ultram (Tramadol Hcl) 50 Mg Tablet 50 Mg PO Q4HRS PRN Potassium Chloride 10 Meq Tab.sr.24h 10 Meq PO DAILY Namenda (Memantine Hcl) 10 Mg Tablet 10 Mg PO BID Zofran (Ondansetron Hcl) 4 Mg Tablet 1 Tab PO PRN Q6-8HRS Imodium A-D (Loperamide Hcl) 1 Mg/7.5 Ml Liquid 1 Mg PO PRN PRN Omeprazole 20 Mg Tablet.dr 1 Tab PO DAILY Acetaminophen 325 Mg Tablet 325 Mg PO Q4HRS Donepezil Hcl 10 Mg Tablet 1 Tab PO DAILY Xeloda (Capecitabine) 500 Mg Tablet 2,000 Mg PO Q12HR Buspirone Hcl 5 Mg Tablet 1 Tab PO QID Melatonin 3 Mg Tablet 1 Tab PO QHS Levothyroxine Sodium 50 Mcg Tablet 50 Mcg PO DAILYAC Cerefolin Nac Caplet (Lmfol Ca/Acetyl/Mb12/Algal Oil) 1 Each Tablet 1 Each PO DAILY Xalatan (Latanoprost) 2.5 Ml Drops 1 Drop EACHEYE QHS Magnesium Oxide 400 Mg Tablet 1 Tab PO TID Pepcid (Famotidine) 20 Mg Tablet 20 Mg PO DAILY Ativan (Lorazepam) 0.5 Mg Tablet 0.5 Mg PO Q4HRS PRN Vital Signs Vital Signs Date Time Temp Pulse Resp B/P (MAP) Pulse Ox O2 Delivery O2 Flow Rate FiO2 07/06/19 11:00 98.1 84 18 110/72 (85) 100 Room Air 98.1 Labs Laboratory Tests Test 07/05/19 06:35 White Blood Count 5.4 x10^3/uL (4.0-11.0) Red Blood Count 2.06 x10^6/uL (3.50-5.40) Hemoglobin 7.6 g/dL (12.0-15.5) Hematocrit 22.0 % (36.0-47.0) Mean Corpuscular Volume 107 fL (79-100) Mean Corpuscular Hemoglobin 37 pg (25-35) Mean Corpuscular Hemoglobin Concent 34 g/dL (31-37) Red Cell Distribution Width 21.7 % (11.5-14.5) Platelet Count 246 x10^3/uL (140-400) Neutrophils (%) (Auto) 65 % (31-73) Lymphocytes (%) (Auto) 19 % (24-48) Monocytes (%) (Auto) 12 % (0-9) Eosinophils (%) (Auto) 2 % (0-3) Basophils (%) (Auto) 1 % (0-3) Neutrophils # (Auto) 3.5 x10^3/uL (1.8-7.7) Lymphocytes # (Auto) 1.0 x10^3/uL (1.0-4.8) Monocytes # (Auto) 0.6 x10^3/uL (0.0-1.1) Eosinophils # (Auto) 0.1 x10^3/uL (0.0-0.7) Basophils # (Auto) 0.1 x10^3/uL (0.0-0.2) Sodium Level 141 mmol/L (136-145) Potassium Level 4.3 mmol/L (3.5-5.1) Chloride Level 109 mmol/L (98-107) Carbon Dioxide Level 24 mmol/L (21-32) Anion Gap 8 (6-14) Blood Urea Nitrogen 21 mg/dL (7-20) Creatinine 0.8 mg/dL (0.6-1.0) Estimated GFR (Cockcroft-Gault) 68.2 Glucose Level 102 mg/dL (70-99) Calcium Level 7.8 mg/dL (8.5-10.1) Magnesium Level 2.1 mg/dL (1.8-2.4) Iron Level 26 ug/dL (50-170) Total Iron Binding Capacity 308 ug/dL (250-450) Iron Saturation 8 % (15-34) Allergies Allergies Coded Allergies Type Severity Reaction Last Updated Verified Iodinated Contrast Media Allergy Intermediate 04/20/19 Yes iodine Allergy Intermediate 06/23/19 Yes latex Allergy Intermediate 06/23/19 Yes Disposition/Orders: Other (d/c to snf) Patient Instructions d/c planning 33 min MEHDI WARD MD Jul 06, 2019 13:35
[2019-07-06] MEDS ORDERED: MULT1TAB90 PO (13:38)
[2019-07-06] MEDS ORDERED: FOLI1TAB16 PO (13:38)
[2019-07-06] MEDS ORDERED: CYAN-25 PO (13:38)
[2019-07-06] MEDS: ENOXAPARIN 30 MG/0.3 ML SYRINGE. SQ SCH (14:00)
[2019-07-06 15:00] VITALS: BP 112/70
--- NOTE | 2019-07-06 15:26 | SNU/HH DC ---
DISCHARGE ORDERS DISCHARGE INFORMATION: FINAL DIAGNOSIS Problems Medical Problems: (1) RUFINO (acute kidney injury) Status: Acute (2) Dehydration Status: Acute (3) Encephalopathy Status: Acute (4) Small bowel obstruction Status: Acute CONDITION ON DISCHARGE: Stable CODE STATUS: Code Status: Full USP: SNF STAY <30 DAYS: Yes HOSPICE: HOSPICE: No HOSPICE EVAL & TREAT: No LTAC: ADMIT TO LTAC: No POST DISCHARGE ORDERS: ACTIVITY ORDERS: Activity as tolerated, Avoid exertion, Other, see below WEIGHT BEARING STATUS: Non weight bearing DIET AFTER DISCHARGE: Cardiac WOUND/INCISION CARE: Ice to area for comfort, Do not change dressing TREATMENT/EQUIPMENT ORDERS: Physical Therapy For: Evalulation/Treatment Speech Language Pathology For: Evaluation/Treatment DISCHARGE MEDICATIONS: Home Meds Active Scripts Multivits,Ca,Minerals/Iron/Fa (THERA-M TABLET) 1 Each Tablet, 1 TAB PO DAILY for supplement for 30 Days, #30 TAB Prov:MEHDI WARD MD 07/06/19 Folic Acid (FOLIC ACID) 1 Mg Tablet, 1 MG PO DAILY for supplement for 30 Days, #30 TAB Prov:MEHDI WARD MD 07/06/19 Cyanocobalamin (Vitamin B-12) (VITAMIN B-12) 1,000 Mcg Tablet, 1000 MCG PO DAILY for supplement for 30 Days, #30 TAB Prov:MEHDI WARD MD 07/06/19 Reported Medications Aspirin (ASPIRIN) 81 Mg Tab.chew, 1 TAB PO DAILY for inflammation, #30 TAB 3 Refills 06/20/19 Potassium Chloride (POTASSIUM CHLORIDE) 10 Meq Tab.sr.24h, 10 MEQ PO DAILY for potassium replacement, TAB.SR 06/20/19 Memantine Hcl (NAMENDA) 10 Mg Tablet, 10 MG PO BID for dementia, TAB 04/19/19 Ondansetron Hcl (ZOFRAN) 4 Mg Tablet, 1 TAB PO PRN Q6-8HRS for nausea, #5 TAB 04/19/19 Omeprazole (OMEPRAZOLE) 20 Mg Tablet.dr, 1 TAB PO DAILY for gerd, #90 TAB 1 Refill 04/19/19 Acetaminophen (ACETAMINOPHEN) 325 Mg Tablet, 325 MG PO Q4HRS for pain, TAB 04/19/19 Donepezil Hcl (DONEPEZIL HCL) 10 Mg Tablet, 1 TAB PO DAILY for dementia, #90 TAB 1 Refill 04/19/19 Buspirone Hcl (BUSPIRONE HCL) 5 Mg Tablet, 1 TAB PO QID for unknown, #60 TAB 2 Refills 04/19/19 Levothyroxine Sodium (LEVOTHYROXINE SODIUM) 50 Mcg Tablet, 50 MCG PO DAILYAC for THYROID SUPPLEMENT, #30 TAB 0 Refills 05/22/16 Latanoprost (XALATAN) 2.5 Ml Drops, 1 DROP EACHEYE QHS, #2.5 ML 6 Refills 04/22/16 Famotidine (PEPCID) 20 Mg Tablet, 20 MG PO DAILY, TAB 04/22/16 Lorazepam (ATIVAN) 0.5 Mg Tablet, 0.5 MG PO Q4HRS PRN for ANXIETY / AGITATION, TAB 04/22/16 Discontinued Reported Medications Tramadol Hcl (ULTRAM) 50 Mg Tablet, 50 MG PO Q4HRS PRN for PAIN, TAB 0 Refills 06/20/19 Loperamide Hcl (IMODIUM A-D) 1 Mg/7.5 Ml Liquid, 1 MG PO PRN PRN for DIARRHEA, LIQUID 04/19/19 Capecitabine (XELODA) 500 Mg Tablet, 2000 MG PO Q12HR for chemotherapy, TAB 04/19/19 Melatonin (MELATONIN) 3 Mg Tablet, 1 TAB PO QHS, #30 TAB 05/22/16 Lmfol Ca/Acetyl/Mb12/Algal Oil (CEREFOLIN NAC CAPLET) 1 Each Tablet, 1 EACH PO DAILY 05/22/16 Magnesium Oxide (MAGNESIUM OXIDE) 400 Mg Tablet, 1 TAB PO TID, #30 TAB 5 Refills 04/22/16 MEHDI WARD MD Jul 06, 2019 15:26
[2019-07-06 15:41] LABS: HEMATOCRIT 26.2 % (36.0-47.0); HEMOGLOBIN 8.8 g/dL (12.0-15.5)
[2019-07-06] MEDS ORDERED: HEPARIN PF 500 UNIT/5 ML DISP.SYRIN. IV ONE (16:30)
--- NOTE | 2019-07-06 16:50 | NUR ---
Pt discharging back to [facility] and rehab. Called and gave report to Carmen. Belongings were packed. Assisted pt with dressing.
[2019-07-06 19:00] VITALS: BP 129/52
--- NOTE | 2019-07-06 19:57 | NUR ---
Discharge Note: ROSA SCHREIBER [address] [place] [address] Discharge instructions and discharge home medications reviewed with other facility and a copy given. All questions have been answered and understanding verbalized by patient. Belongings with patient at time of discharge. IV discontinued and skin intact. Patient [facility] by medical transport.
[2019-07-06] MEDS ORDERED: TOTAL PARENTERAL NUTRITION IV SCH ×10 (22:00)
[2019-07-06] MEDS ORDERED: [UNRECOGNIZED DRUG - OTHER] IV SCH ×10 (22:00)
[2019-07-06] MEDS ORDERED: AMINO ACID IV SCH ×10 (22:00)
[2019-07-06] MEDS ORDERED: DEXTROSE 70% IV SCH ×10 (22:00)
== END 2019-07-06 19:57 | disposition home or self-care (01) | DRG 329 ==
LOC: 4 NORTH 20:14
PROVIDERS: ADMIT Family Medicine; ATTEND Family Medicine
PROC: 0DN80ZZ Release Small Intestine, Open Approach (ICD-10-PCS; 2019-06-24)
PROC: 0D9670Z Drainage of Stomach with Drainage Device, Via Natural or Artificial Opening (ICD-10-PCS; 2019-06-24)
PROC: 0DB80ZZ Excision of Small Intestine, Open Approach (ICD-10-PCS; principal; 2019-06-24 11:00)
DX: K56.50 Intestinal adhesions [bands], unspecified as to partial versus complete obstruction (principal); N17.0 Acute kidney failure with tubular necrosis; E43 Unspecified severe protein-calorie malnutrition; G93.40 Encephalopathy, unspecified; C79.9 Secondary malignant neoplasm of unspecified site; N39.0 Urinary tract infection, site not specified; E87.2 Acidosis; N18.4 Chronic kidney disease, stage 4 (severe); K62.5 Hemorrhage of anus and rectum; Z68.1 Body mass index [BMI] 19.9 or less, adult; I12.9 Hypertensive chronic kidney disease with stage 1 through stage 4 chronic kidney disease, or unspecified chronic kidney disease; Z88.8 Allergy status to other drugs, medicaments and biological substances; Z91.040 Latex allergy status; D50.9 Iron deficiency anemia, unspecified; D53.9 Nutritional anemia, unspecified; E03.9 Hypothyroidism, unspecified; M19.90 Unspecified osteoarthritis, unspecified site; E86.0 Dehydration; F03.90 Unspecified dementia, unspecified severity, without behavioral disturbance, psychotic disturbance, mood disturbance, and anxiety; Z53.31 Laparoscopic surgical procedure converted to open procedure; Z85.038 Personal history of other malignant neoplasm of large intestine; Z85.3 Personal history of malignant neoplasm of breast; Z91.81 History of falling; Z92.21 Personal history of antineoplastic chemotherapy; Z92.3 Personal history of irradiation
CPT/HCPCS: 36415; 74018; 74021; 74022; 74250; 76770; 80048; 80053; 81001; 82607; 82962; 83540; 83550; 83605; 83735; 84100; 84478; 85007; 85014; 85018; 85025; 85027; 87086; 87641; 88307; A7015; C1769; C9113; J0171; J0696; J0780; J1100; J1200; J1650; J1956; J2001; J2270; J2370; J2405; J2704; J2710; J2930; J3010; J3475; J3490; J7030; J7040; J7050; Q0162; 97110; 97116; 97530; 97535; G0378

== ENCOUNTER → 2019-12-09 | Outpatient (CLI) | payer MEDICARE, OTHER ==
[~2019-12-09] MED LIST changes: +ASPI-630 PO; +CYAN-25 PO; +FOLI1TAB16 PO; -MAGN400T3 PO; +MAGN400T5 PO; -MELA3TAB2 PO; +MELA3TAB56 PO; +MULT1TAB90 PO; +POTA10TA12 PO; +TRAM-48 PO
--- NOTE | 2019-12-10 11:58 | RAD ---
EXAM: PET/CT SKULL BASE TO MID THIGH. HISTORY: Colon cancer restaging. COMPARISON: 08/20/2017. TECHNIQUE: CT was performed from the skull base through the mid thighs for the purposes of attenuation correction. 12.3 mCi F-18 fluorodeoxyglucose (FDG) was administered intravenously. After an uptake period, positron emission tomography was performed from the skull base through the mid thighs. The PET and CT data were fused and interpreted in combination a dedicated workstation. Blood glucose level was 99 mg/dL at the time of FDG administration. FINDINGS: Multiple hypermetabolic lung nodules are consistent with metastatic disease. A 13 mm nodule in the superior segment of the left lower lobe demonstrates maximum SUV 2.3. Another in the lingula measures 9 mm with maximum SUV 3.6 cm. Other smaller nodules in the left lower lobe are below the resolution of PET but demonstrate low level activity and likely represent metastatic disease. An enlarged epiphrenic lymph node measures 15 x 8 mm with maximum SUV 4.1. A 2.6 cm hypoattenuating lesion within hepatic segment 2 demonstrates maximum SUV 7.6. Another mostly calcified metastasis laterally in the right hepatic lobe is only mildly hypermetabolic on its posterior periphery with maximum SUV 3.9. Uptake along the distal ileum is not associated with a mass and likely reflects peristalsis. There is no clear local recurrence. Additional CT findings include changes of hysterectomy. Sigmoid diverticulosis mild. There is a [id number]-rjllykyg HH. Coronary atherosclerotic calcifications are noted. A left port catheter is noted. There are changes of bilateral cataract surgery. Central canal stenosis is up to moderate/severe within the lower lumbar spine. IMPRESSION: 1. Multiple metabolically active pulmonary nodules are consistent with metastatic disease. 2. Hepatic metastatic disease as above.
== END | disposition home or self-care (01) ==
LOC: PETSC 09:09
DX: C78.7 Secondary malignant neoplasm of liver and intrahepatic bile duct (principal); C18.9 Malignant neoplasm of colon, unspecified; K57.30 Diverticulosis of large intestine without perforation or abscess without bleeding; R91.8 Other nonspecific abnormal finding of lung field; K76.9 Liver disease, unspecified; I25.10 Atherosclerotic heart disease of native coronary artery without angina pectoris; Z90.710 Acquired absence of both cervix and uterus
CPT/HCPCS: 78815; A9552

== ENCOUNTER 2020-04-27 10:36 | Inpatient (IN) | payer MEDICARE, OTHER ==
[~2020-04-27] VITALS: Ht 160 cm; Wt 42.0 kg
[~2020-04-27 10:36] MED LIST changes: +MELA3TAB4 PO; -MELA3TAB56 PO
[2020-04-27] MEDS ORDERED: cefTRIAXone IV Push 1 GM VIAL. IVP ONE (12:00)
[2020-04-27] MEDS ORDERED: IV NORMAL SALINE 1000ML BAG 1,000 ML IV ONE ×2 (12:00→18:00)
[2020-04-27] MEDS ORDERED: fentaNYL PF VIAL 100 MCG/2 ML VIAL IVP ONE (12:00)
--- NOTE | 2020-04-27 12:06 | RAD ---
CHEST AP ONLY Clinical Indication: Reason: sob / Spl. Instructions: / History: Comparison: Acute abdominal series July 03, 2019. Findings: Patient is rotated. The right apex is obscured due to the mandible and soft tissues. There is left chest Port-A-Cath, stable. The cardiomediastinal silhouette is normal. Lungs are clear. There is no pneumothorax. No pleural effusion is appreciated. No acute bone abnormality. There is moderate right convexity thoracolumbar scoliosis. IMPRESSION: No acute cardiopulmonary process. Electronically signed by: Olegario Mosher MD (04/27/2020 12:03 PM) [id number]
[2020-04-27] MEDS ORDERED: ALTEPLASE 1MG SYRINGE. INT CAT ONE (13:15)
[2020-04-27 13:33] LABS: BASE EXCESS ABG -16 mmol/L (-3-3); HCO3 ABG 9 mmol/L (21-28); PO2 ABG 284 mmHg (65-108); SAT O2 ABG 98 % (92-99)
[2020-04-27 13:34] LABS: FIO2 ABG 100; PCO2 ABG 19 mmHg (35-46)
[2020-04-27] MEDS ORDERED: NOREPINEPHRINE VIAL 8 MG in IV DEXTROSE 5% 250 ML IV ONE (14:00)
[2020-04-27] MEDS ORDERED: MORPHINE SULFATE 10 MG/ML VIAL. IV ONE (16:15)
--- NOTE | 2020-04-27 18:09 | PHYS DOC ---
Past Medical History Past Medical History: Cancer, Dementia, Glaucoma, Hypothyroid Past Surgical History: Other Additional Past Surgical Histo: UNKNOWN Smoking Status: Never Smoker Alcohol Use: None General Adult EDM: Chief Complaint: DYSPNEA/RESPIRATOY DISTRESS HPI: HPI: Patient is a 84 year old female with a past medical history of cancer who presents with hypotension. Upon arrival to the emergency room patient states she feels very cold and tired. She is unable to provide very much history because she is a poor historian. She does not appear to be confused. She is on chemotherapy for colon cancer. She has not been eating very much over the last couple of days. EMS was not able to get a reliable pulse ox. She was hypotensive in route. Review of Systems: Review of Systems: General: Reports fatigue, chills Eyes: Denies drainage, blurred vision HENT: Denies rhinorrhea, sore throat Respiratory: Denies cough, shortness of breath, wheezing Cardiac: Denies edema, palpitations, chest pain GI: Denies abdominal pain, N/V MSK: Denies back pain, neck pain Skin: Denies rash, jaundice Neuro: Denies headache, dizziness Psychiatric: Denies SI/HI Heart Score: Risk Factors: Risk Factors: DM, Current or recent (<one month) smoker, HTN, HLP, family history of CAD, obesity. Risk Scores: Score 0 - 3: 2.5% MACE over next 6 weeks - Discharge Home Score 4 - 6: 20.3% MACE over next 6 weeks - Admit for Clinical Observation Score 7 - 10: 72.7% MACE over next 6 weeks - Early Invasive Strategies Current Medications: Current Medications Medications (Trade) Dose Ordered Sig/Marilee Start Time Stop Time Status Last Admin Dose Admin Alteplase, Recombinant (Cathflo For Central Catheter Clearance) 1 mg 1X ONCE 04/27/20 13:15 04/27/20 13:16 DC 04/27/20 13:37 1 MG Ceftriaxone Sodium (Rocephin) 1 gm 1X ONCE 04/27/20 12:00 04/27/20 12:07 DC 04/27/20 12:39 1 GM Fentanyl Citrate (Fentanyl 2ml Vial) 50 mcg 1X ONCE 04/27/20 12:00 04/27/20 12:07 DC 04/27/20 12:39 50 MCG Norepinephrine Bitartrate 8 mg/ Dextrose 258 ml @ 11.61 mls/ hr 1X ONCE 04/27/20 14:00 04/28/20 12:13 04/27/20 13:52 11.61 MLS/HR Sodium Chloride 1,000 ml @ 0 mls/hr 1X ONCE 04/27/20 12:00 04/27/20 12:07 DC 04/27/20 12:38 990 MLS/HR Allergies: Allergies: Allergies Coded Allergies Type Severity Reaction Last Updated Verified Iodinated Contrast Media Allergy Intermediate 04/20/19 Yes iodine Allergy Intermediate 06/23/19 Yes latex Allergy Intermediate 06/23/19 Yes Physical Exam: PE: Constitutional: Cachectic, toxic appearing, cooperative HEENT: Normocephalic, atraumatic, oropharynx dry t, EOMI, PERRL, no drainage from eyes, normal conjunctiva Neck: Supple, normal range of motion, no stridor Cardiovascular: Tachycardic, decreased cap refill of 5 seconds Respiratory: Decreased breath sounds bilaterally y, no respiratory distress, no wheezing/crackles Abdomen: Soft, nontender, nondistended, no masses Skin: Cold, cyanosis of bilateral hands Extremities: No obvious deformities Neurologic: Alert and Oriented x3, motor and sensory function grossly normal, no focal deficits Psychologic: Normal affect, normal judgment, normal mood. No SI/HI Current Patient Data: Labs: Laboratory Tests Test 04/27/20 13:32 04/27/20 15:22 O2 Saturation 98 % (92-99) Arterial Blood pH 7.29 (7.35-7.45) L Arterial Blood pCO2 at Patient Temp 19 mmHg (35-46) *L Arterial Blood pO2 at Patient Temp 284 mmHg (65-108) H Arterial Blood HCO3 9 mmol/L (21-28) L Arterial Blood Base Excess -16 mmol/L (-3-3) L FiO2 100 Lactic Acid Level 5.8 mmol/L (0.4-2.0) *H Vital Signs: Vital Signs Date Time Temp Pulse Resp B/P (MAP) Pulse Ox O2 Delivery O2 Flow Rate FiO2 04/27/20 15:10 102 18 77/55 (62) 94 Nasal Cannula 4.0 04/27/20 10:39 98.1 98.1 EKG: EKG: [] Radiology/Procedures: Radiology/Procedures: [] Course & Med Decision Making: Course & Med Decision Making Pertinent Labs and Imaging studies reviewed. (See chart for details) Patient is an 84-year-old female who presents to the emergency room with hypotension and fatigue. Despite multiple attempts by nursing staff, lab, respiratory therapy blood was not able to be obtained. Her port was accessed, however blood cannot be drawn back. She was given fluids and antibiotics. Levophed was started. An ABG was able to be obtained which shows a high O2 and a low bicarb. It appears that she has a severe metabolic dysfunction. Oxygen was decreased. She does have cyanosis of the hands, however this is likely due to hypotension. Hypotension did improve with Levophed. While here in the emergency room patient made statements that she was tired and no longer wanted to be poked and did not want any further interventions. She was admitted to the hospitalist when she started making the statements. I have discussed them with the hospitalist who will discuss hospice care with her. Patient will be made a DNR. Dragon Disclaimer: Dragon Disclaimer: This electronic medical record was generated, in whole or in part, using a voice recognition dictation system. Departure Departure Impression: Primary Impression: Shock Additional Impressions: Colon cancer Failure to thrive Hypoxia Disposition: ADMITTED INPATIENT Condition: GUARDED Referrals: MEGHA MEYERS DO (PCP) Justicifation of Admission Dx: Justifications for Admission: Justification of Admission Dx: Yes Critical Care Time Critical Care: Authorized and Performed by: Evelina Anna MD Total critical care time: approximately 35 minutes Due to a high probability of clinically significant, life threatening deterioration, the patient required my highest level of preparedness to intervene emergently and I personally spent this critical care time directly and personally managing the patient. This critical care time included obtaining a history; examining the patient; pulse oximetry; ventilator management if necessary; ordering and review of studies; arranging urgent treatment with development of a management plan; evaluation of patient's response to treatment; frequent reassessment; discussion with patient/family; and, discussions with other providers. This critical care time was performed to assess and manage the high probability of imminent, life-threatening deterioration that could result in multi-organ failure. It was exclusive of separately billable procedures and treating other patients and teaching time. Please see MDM section and the rest of the note for further information on patient assessment and treatment. EVELINA ANNA MD Apr 27, 2020 18:09
[2020-04-27 19:00] VITALS: BP 138/73
--- NOTE | 2020-04-27 19:21 | HP ---
ADMIT DATE: 04/27/2020 CHIEF COMPLAINT: Failure to thrive. HISTORY OF PRESENT ILLNESS: The patient is a pleasant elderly female who has multiple comorbidities. She presented to the ER today with not feeling well. She is very weak. She has some dementia. Basically, it appears she is failing to thrive. We did a chest x-ray, which shows no acute disease. Her ABG was offered a pH of 7.29, pCO2 of 19, pO2 of ____ with bicarbonate of 9. Other labs are pending, but we have been having problems drawing her blood. I discussed the case with ER physician. The patient actually wants to go into hospice care. We are going to admit the patient until we can get that arranged. PAST MEDICAL HISTORY: From the record, it appears she has dementia, hypertension, anxiety, depression, GERD, glaucoma, hypothyroidism, anemia. ALLERGIES: IODINE, AND LATEX. FAMILY HISTORY: Dementia. SOCIAL HISTORY: She does not drink, smoke or take drugs. MEDICATIONS: Reviewed, please refer to the MRAD. REVIEW OF SYSTEMS: Unable to obtain. The patient is too confused. PHYSICAL EXAMINATION: VITALS: Blood pressure is low at 77/55. GENERAL: She is very thin and frail. HEENT: She has very little hair. EYES: Extraocular muscles are intact, pupils are equally round and reactive to light and accommodation MUSCULOSKELETAL: Well developed, well nourished, good range of motion ENDOCRINE: No thyromegaly was palpated LYMPHATICS: No cervical chain or axillary nodes were noted HEMATOPOIETIC: No bruising NECK: Supple, no JVD, no thyromegaly was noted. LUNGS: Clear to auscultation in all lung isaac without rhonchi or wheezing. HEART: RRR, S1, S2 present. Peripheral pulses intact, no obvious murmurs were noted. ABDOMEN: Soft, nontender. Positive bowel sounds no organomegaly, normal bowel sounds. EXTREMITIES: Without any cyanosis, clubbing, or edema. Pedal pulses intact, Homans sign is negative. NEUROLOGIC: She has very decreased memory, does not really talk much. PSYCHIATRIC: She is depressed. SKIN: No ulcerations or rashes, good skin turgor, no jaundice. VASCULAR: Good capillary refill, neurovascular bundle appears to be intact. LABORATORY DATA: Lactic acid 5.8. ABG: pH 7.29, pCO2 of 19, pO2 ____, bicarbonate 9. ASSESSMENT AND PLAN: Probable sepsis, failure to thrive with acute on chronic anemia, hypotension. The patient is being admitted. We will trend labs. [employer] p.r.n. financial services representative to arrange hospice. We have her on a Levophed drip for her hypotension. Currently she is full code, p.r.n. morphine. We will try to get a CBC and a BMP as well, but she is difficult to draw blood from. Ceftriaxone 1 gram IV every day empirically. PROGNOSIS: Guarded probably terminal and long-term. MONTSERRAT BLANCHARD DO DR: WILLIE/jose JOB#: [id number] / [id number]
[2020-04-27] MEDS ORDERED: BUSP5TAB PO (19:24)
[2020-04-27] MEDS ORDERED: DIPH1TAB PO (19:24)
[2020-04-27] MEDS ORDERED: MELA3TAB43 PO (19:24)
[2020-04-27] MEDS ORDERED: LOPE2TAB27 PO (19:24)
[2020-04-27] MEDS ORDERED: PROC10TA57 PO (19:24)
[2020-04-27] MEDS ORDERED: ASCO500C PO (19:24)
--- NOTE | 2020-04-27 20:00 | NUR ---
thermal cutter helper attempted to draw labs. Will retry in the am.
[2020-04-27 23:31] VITALS: BP 129/72
[2020-04-28 03:20] VITALS: BP 117/72
[2020-04-28 07:00] VITALS: BP 85/46
[2020-04-28] MEDS ORDERED: ONDANSETRON PF 4 MG/2 ML VIAL. IVP PRN (09:15)
[2020-04-28] MEDS: IV NORMAL SALINE 1000ML BAG 1,000 ML IV SCH (09:15)
[2020-04-28 09:22] LABS: BILIRUBIN,URINE SMALL (NEG); CLARITY,URINE CLOUDY; COLOR,URINE AMBER; NITRITE,URINE NEGATIVE (NEG); PH,URINE 5.5 (<5.0-8.0); PROTEIN,URINE 100 mg/dL (NEG-TRACE); UROBILINOGEN,URINE 0.2 mg/dL (0.2 mg/dL)
[2020-04-28 09:35] LABS: AMORPHOUS SEDIMENT,UR PRESENT /HPF; BACTERIA,URINE FEW /HPF (0-FEW); SQUAMOUS EPITHELIAL CELL,UR FEW /LPF
[2020-04-28 09:36] LABS: GRANULAR CASTS,URINE FEW /HPF; HYALINE CASTS, URINE MANY /HPF
--- NOTE | 2020-04-28 09:55 | PDOC ---
PROGRESS NOTES History of Present Illness History of Present Illness SEPSIS metastatic breast cancer malnutrition, severe protein malnutrition acute on chronic renal failure, vasomotor, cognitive decline, dementia Hx, chronic Small-bowel obstruction secondary to a fibrous adhesion. small bowel segmental resection: - Central segmental hemorrhagic infarction with stricture. - Proximal and distal margins of resection viable. 06/24 kub Grossly unchanged appearance of the abdomen including dilated loops of central small bowel containing dilute enteric contrast. moderate fall risk macrocytic anemia DNR STATUS grave short-term prognosis 04/28 family is here will discuss hospice consult/// palliative measures, PATIENT NOW ALERT, ABLE TO MAKE LIFE DECISIONS, AGREES WITH HOSPICE CONSULT// INTAKE started iv merem ROXANOL D/W DR RICE IN [place] 38 min pt exam cc time, chart review, > 50% of time spent with exam, chart review, pt care coordination Vitals Vitals Vital Signs Date Time Temp Pulse Resp B/P (MAP) Pulse Ox O2 Delivery O2 Flow Rate FiO2 04/28/20 07:00 97.3 107 18 85/46 (59) 94 Nasal Cannula 4.0 97.3 Physical Exam Physical Exam MUSCULOSKELETAL: Well developed, well nourished, good range of motion ENDOCRINE: No thyromegaly was palpated LYMPHATICS: No cervical chain or axillary nodes were noted HEMATOPOIETIC: No bruising NECK: Supple, no JVD, no thyromegaly was noted. LUNGS: Clear to auscultation in all lung isaac without rhonchi or wheezing. HEART: RRR, S1, S2 present. Peripheral pulses intact, no obvious murmurs were noted. ABDOMEN: Soft, nontender. Positive bowel sounds no organomegaly, normal bowel sounds. EXTREMITIES: Without any cyanosis, clubbing, or edema. Pedal pulses intact, Homans sign is negative. NEUROLOGIC: She has very decreased memory, does not really talk much. PSYCHIATRIC: She is depressed. SKIN: No ulcerations or rashes, good skin turgor, no jaundice. VASCULAR: poor refill, neurovascular bundle appears to be intact. General: Cooperative, moderate distress Heart: Regular rate Lungs: Clear Abdomen: Soft Extremities: No cyanosis Labs LABS Laboratory Tests Test 04/27/20 13:32 04/27/20 15:22 04/28/20 09:00 O2 Saturation 98 % (92-99) Arterial Blood pH 7.29 (7.35-7.45) Arterial Blood pCO2 at Patient Temp 19 mmHg (35-46) Arterial Blood pO2 at Patient Temp 284 mmHg (65-108) Arterial Blood HCO3 9 mmol/L (21-28) Arterial Blood Base Excess -16 mmol/L (-3-3) FiO2 100 Lactic Acid Level 5.8 mmol/L (0.4-2.0) Urine Collection Type Unknown Urine Color Elissa Urine Clarity Cloudy Urine pH 5.5 (<5.0-8.0) Urine Specific [place] 1.025 (1.000-1.030) Urine Protein 100 mg/dL (NEG-TRACE) Urine Glucose (UA) Negative mg/dL (NEG) Urine Ketones (Stick) Negative mg/dL (NEG) Urine Blood Small (NEG) Urine Nitrite Negative (NEG) Urine Bilirubin Small (NEG) Urine Urobilinogen Dipstick 0.2 mg/dL (0.2 mg/dL) Urine Leukocyte Esterase Negative (NEG) Urine RBC 3-5 /HPF (0-2) Urine WBC 1-4 /HPF (0-4) Urine Squamous Epithelial Cells Few /LPF Urine Amorphous Sediment Present /HPF Urine Bacteria Few /HPF (0-FEW) Urine Hyaline Casts Many /HPF Urine Granular Casts Few /HPF Urine Mucus Slight /LPF Assessment and Plan Assessmemt and Plan Problems Medical Problems: (1) Failure to thrive Status: Acute (2) Hypoxia Status: Acute (3) Shock Status: Acute Comment Review of Relevant I have reviewed the following items lola (where applicable) has been applied. Labs Laboratory Tests Test 04/27/20 13:32 04/27/20 15:22 04/28/20 09:00 O2 Saturation 98 % (92-99) Arterial Blood pH 7.29 (7.35-7.45) Arterial Blood pCO2 at Patient Temp 19 mmHg (35-46) Arterial Blood pO2 at Patient Temp 284 mmHg (65-108) Arterial Blood HCO3 9 mmol/L (21-28) Arterial Blood Base Excess -16 mmol/L (-3-3) FiO2 100 Lactic Acid Level 5.8 mmol/L (0.4-2.0) Urine Collection Type Unknown Urine Color Elissa Urine Clarity Cloudy Urine pH 5.5 (<5.0-8.0) Urine Specific [place] 1.025 (1.000-1.030) Urine Protein 100 mg/dL (NEG-TRACE) Urine Glucose (UA) Negative mg/dL (NEG) Urine Ketones (Stick) Negative mg/dL (NEG) Urine Blood Small (NEG) Urine Nitrite Negative (NEG) Urine Bilirubin Small (NEG) Urine Urobilinogen Dipstick 0.2 mg/dL (0.2 mg/dL) Urine Leukocyte Esterase Negative (NEG) Urine RBC 3-5 /HPF (0-2) Urine WBC 1-4 /HPF (0-4) Urine Squamous Epithelial Cells Few /LPF Urine Amorphous Sediment Present /HPF Urine Bacteria Few /HPF (0-FEW) Urine Hyaline Casts Many /HPF Urine Granular Casts Few /HPF Urine Mucus Slight /LPF Laboratory Tests Test 04/27/20 13:32 04/27/20 15:22 04/28/20 09:00 O2 Saturation 98 % (92-99) Arterial Blood pH 7.29 (7.35-7.45) Arterial Blood pCO2 at Patient Temp 19 mmHg (35-46) Arterial Blood pO2 at Patient Temp 284 mmHg (65-108) Arterial Blood HCO3 9 mmol/L (21-28) Arterial Blood Base Excess -16 mmol/L (-3-3) FiO2 100 Lactic Acid Level 5.8 mmol/L (0.4-2.0) Urine Collection Type Unknown Urine Color Elissa Urine Clarity Cloudy Urine pH 5.5 (<5.0-8.0) Urine Specific [place] 1.025 (1.000-1.030) Urine Protein 100 mg/dL (NEG-TRACE) Urine Glucose (UA) Negative mg/dL (NEG) Urine Ketones (Stick) Negative mg/dL (NEG) Urine Blood Small (NEG) Urine Nitrite Negative (NEG) Urine Bilirubin Small (NEG) Urine Urobilinogen Dipstick 0.2 mg/dL (0.2 mg/dL) Urine Leukocyte Esterase Negative (NEG) Urine RBC 3-5 /HPF (0-2) Urine WBC 1-4 /HPF (0-4) Urine Squamous Epithelial Cells Few /LPF Urine Amorphous Sediment Present /HPF Urine Bacteria Few /HPF (0-FEW) Urine Hyaline Casts Many /HPF Urine Granular Casts Few /HPF Urine Mucus Slight /LPF Medications Current Medications Sodium Chloride 1,000 ml @ 0 mls/hr 1X ONCE IV Last administered on 04/27/20at 12:38; Start 04/27/20 at 12:00; Stop 04/27/20 at 12:07; Status DC Ceftriaxone Sodium (Rocephin) 1 gm 1X ONCE IVP Last administered on 04/27/20at 12:39; Start 04/27/20 at 12:00; Stop 04/27/20 at 12:07; Status DC Fentanyl Citrate (Fentanyl 2ml Vial) 50 mcg 1X ONCE IVP Last administered on 04/27/20at 12:39; Start 04/27/20 at 12:00; Stop 04/27/20 at 12:07; Status DC Alteplase, Recombinant (Cathflo For Central Catheter Clearance) 1 mg 1X ONCE INT CAT Last administered on 04/27/20at 13:37; Start 04/27/20 at 13:15; Stop 04/27/20 at 13:16; Status DC Norepinephrine Bitartrate 8 mg/ Dextrose 258 ml @ 11.61 mls/ hr 1X ONCE IV Last administered on 04/27/20at 13:52; Start 04/27/20 at 14:00; Stop 04/28/20 at 12:13 Morphine Sulfate (Morphine Sulfate) 5 mg 1X ONCE IV Last administered on 04/27/20at 16:54; Start 04/27/20 at 16:15; Stop 04/27/20 at 16:16; Status DC Sodium Chloride 1,000 ml @ 0 mls/hr 1X ONCE IV Last administered on 04/27/20at 18:30; Start 04/27/20 at 18:00; Stop 04/27/20 at 18:01; Status DC Ondansetron HCl (Zofran) 4 mg PRN Q6HRS PRN IVP NAUSEA/VOMITING; Start 04/28/20 at 09:15 Sodium Chloride 1,000 ml @ 60 mls/hr [id number] IV ; Start 04/28/20 at 09:15 Active Scripts Active Thera-M Tablet (Multivits,Ca,Minerals/Iron/Fa) 1 Each Tablet 1 Tab PO DAILY 30 Days Folic Acid 1 Mg Tablet 1 Mg PO DAILY 30 Days Reported Compazine (Prochlorperazine Maleate) 10 Mg Tablet 1 Tab PO Q6HRS 30 Days Melatonin 3 Mg Tab.rapdis 1 Tab PO QHS 30 Days Loperamide (Loperamide Hcl) 2 Mg Tablet 1 Tab PO Q4HRS 30 Days Lomotil Tablet (Diphenoxylate Hcl/Atropine) 1 Each Tablet 1 Tab PO TID Buspirone Hcl 5 Mg Tablet 1 Tab PO QID Vitamin C (Ascorbic Acid) 500 Mg Capsule.er 1 Cap PO DAILY 30 Days Aspirin 81 Mg Tab.chew 1 Tab PO DAILY Potassium Chloride (Potassium Chloride) 10 Meq Tab.sr.24h 10 Meq PO DAILY Namenda (Memantine Hcl) 10 Mg Tablet 10 Mg PO BID Zofran (Ondansetron Hcl) 4 Mg Tablet 1 Tab PO PRN Q6-8HRS Acetaminophen 325 Mg Tablet 325 Mg PO Q4HRS Donepezil Hcl 10 Mg Tablet 1 Tab PO DAILY Levothyroxine Sodium 50 Mcg Tablet 75 Mcg PO DAILYAC Xalatan (Latanoprost) 2.5 Ml Drops 1 Drop EACHEYE QHS Pepcid (Famotidine) 20 Mg Tablet 20 Mg PO DAILY Ativan (Lorazepam) 0.5 Mg Tablet 0.5 Mg PO Q4HRS PRN Vitals/I & O Vital Sign - Last 24 Hours 04/27/20 04/27/20 04/27/20 04/27/20 10:39 11:00 11:30 12:00 Temp 98.1 98.1 Pulse 142 138 133 128 Resp 22 B/P (MAP) 80/42 (55) 82/55 (64) 82/52 (62) 79/51 (60) Pulse Ox 89 92 92 93 O2 Delivery NonRebreather Mask NonRebreather Mask NonRebreather Mask NonRe breather Mask O2 Flow Rate 15.0 15.0 15.0 15.0 04/27/20 04/27/20 04/27/20 04/27/20 12:30 13:00 13:30 13:45 Pulse 118 119 121 117 Resp 22 B/P (MAP) 83/50 (61) 79/52 (61) 90/48 (62) 84/50 (61) Pulse Ox 91 91 93 96 O2 Delivery NonRebreather Mask NonRebreather Mask NonRebreather Mask Nasal Cannula O2 Flow Rate 15.0 15.0 15.0 4.0 04/27/20 04/27/20 04/27/20 04/27/20 14:15 14:45 15:10 16:10 Pulse 114 109 102 111 Resp B/P (MAP) 82/43 (56) 81/64 (70) 77/55 (62) 96/58 (71) Pulse Ox 96 95 94 97 O2 Delivery Nasal Cannula Nasal Cannula Nasal Cannula Nasal Cannula O2 Flow Rate 4.0 4.0 4.0 4.0 04/27/20 04/27/20 04/27/20 04/27/20 17:00 18:00 18:30 19:00 Temp 96.7 96.7 Pulse 109 108 99 112 Resp 22 22 22 26 B/P (MAP) 104/68 (80) 110/69 (83) 101/61 (74) 138/73 (94) Pulse Ox 98 98 97 92 O2 Delivery Nasal Cannula Nasal Cannula Nasal Cannula Nasal Cannula O2 Flow Rate 4.0 4.0 4.0 4.0 04/27/20 04/27/20 04/27/20 04/28/20 20:00 21:19 23:31 03:20 Temp 97.1 97.7 97.1 97.7 Pulse 110 101 Resp 24 24 B/P (MAP) 129/72 (91) 117/72 (87) Pulse Ox 96 94 O2 Delivery Nasal Cannula Nasal Cannula Nasal Cannula Nasal Cannula O2 Flow Rate 4.0 4.0 4.0 4.0 04/28/20 07:00 Temp 97.3 97.3 Pulse 107 Resp 18 B/P (MAP) 85/46 (59) Pulse Ox 94 O2 Delivery Nasal Cannula O2 Flow Rate 4.0 Intake and Output 04/27/20 04/27/20 04/28/20 15:00 23:00 07:00 Intake Total 100 ml 0 ml Output Total 200 ml Balance 100 ml -200 ml MEHDI WARD MD Apr 28, 2020 09:55
[2020-04-28 09:57] LABS: BASO % 0 % (0-3); EOS % 4 % (0-3); HEMATOCRIT 34.2 % (36.0-47.0); HEMOGLOBIN 11.4 g/dL (12.0-15.5); LYMPH # 0.6 x10^3/uL (1.0-4.8); LYMPH % 80 % (24-48); MEAN CORPUSCULAR HEMOGLOBIN 36 pg (25-35); MEAN CORPUSCULAR HGB CONC 33 g/dL (31-37); MEAN CORPUSCULAR VOLUME 107 fL (79-100); MONO % 2 % (0-9); NEUT # 0.1 x10^3/uL (1.8-7.7); NEUT % 14 % (31-73); PLATELET COUNT 73 x10^3/uL (140-400); RED BLOOD COUNT 3.18 x10^6/uL (3.50-5.40); RED CELL DISTRIBUTION WIDTH 23.3 % (11.5-14.5)
[2020-04-28] MEDS ORDERED: MEROPENEM 1 GM in IV NORMAL SALINE 100ML 100 ML IV SCH (10:00)
[2020-04-28] MEDS ORDERED: cefTRIAXone IV Push 1 GM VIAL. IVP SCH (10:00)
[2020-04-28 10:10] LABS: ALBUMIN 2.3 g/dL (3.4-5.0); ALBUMIN/GLOBULIN RATIO 0.9 (1.0-1.7); CALCIUM 8.1 mg/dL (8.5-10.1); CREATININE 3.5 mg/dL (0.6-1.0); GFR 12.4; POTASSIUM 4.2 mmol/L (3.5-5.1); TOTAL BILIRUBIN 0.7 mg/dL (0.2-1.0); TOTAL PROTEIN 4.9 g/dL (6.4-8.2)
[2020-04-28 10:18] LABS: WHITE BLOOD COUNT 0.8 x10^3/uL (4.0-11.0)
--- NOTE | 2020-04-28 10:43 | RAD ---
PA chest and AP upright supine abdomen x-rays HISTORY: Bowel obstruction. COMPARISON: Chest x-ray April 27, 2019 and prior studies. FINDINGS: Left subclavian portacatheter tip general radiographic region central left innominate vein or upper SVC stable. Heart size stable. No pulmonary opacities. No pleural effusions. No pneumoperitoneum evident. Thoracolumbar scoliosis. Old healed right clavicle deformity. Old healed right rib fracture deformities. Surgical suture density right lower quadrant. Pelvic phleboliths. No abnormal dilated bowel loops or abnormal air-fluid levels of the bowel. Mild gaseous and fluid within the stomach. IMPRESSION: No acute process in the chest. No bowel obstruction evident. Electronically signed by: Erich Ahuja MD (04/28/2020 10:40 AM) [facility]
[2020-04-28 10:53] VITALS: BP 65/30
[2020-04-28] MEDS ORDERED: BUMETANIDE 1 MG/4 ML VIAL. IV SCH (11:15)
--- NOTE | 2020-04-28 11:17 | NUR ---
Nursing: Labs resulted, critical labs called to Dr. Ahumada. Orders received. New consults called. Dr. Ahumada came to unit to assess patient and requested transfer to ICU. Patient is a DNR. Dr. Ahumada and nurse attempted to call patients DPOA. Family did not answer. Addendum: 04/28/20 at 1824 by DUKE PACHECO RN After speaking more with patient and DPOA. Patient and family decided to set up a meeting with hospice. Dr. Ahumada cancelled transfer to ICU.
[2020-04-28 11:25] LABS: % EOS 1 % (0-5); % LYMPHS 86 % (24-48); % MONOS 1 % (0-10); % SEGS 12 % (35-66); ANISOCYTOSIS SLIGHT; NUCLEATED RBC 1; PLT ESTIMATE DECREASED (ADEQUATE)
--- NOTE | 2020-04-28 12:13 | PDOC2 ---
CONSULT Date of Consult Date of Consult DATE: 04/28/20 TIME: 11:57 Reason for Consult Reason for Consult: RUFINO Source Source: Chart review History of Present Illness Reason for Visit: Patient is an 84-year-old CF who presents to the emergency room with hypotension and fatigue. She has a Dx of colon cancer, she recd Chemo last week Per family she was on PO chemo med and was advised to stop but due to some miscommunication, she continued to recieve it She was given fluids and antibiotics Levophed was started in the ER . Per ER note she has cyanosis of the hands, likely due to hypotension. While in the emergency room patient made statements that she was tired and no longer wanted to be poked and did not want any further interventions. She was made a DNR. She denies any CP or SOB. No Vomiting or diarrhea . Denies any Urinary complaints. Trying to eat Lunch currently. Pt refusing any Intervention and family inclining towards Hospice Past Medical History Cardiovascular: HTN CENTRAL NERVOUS SYSTEM: Dementia Musculoskeletal: Osteoarthritis Infectious disease: No pertinent hx Renal/: No pertinent hx Endocrine: No pertinent hx, Hypothyroidism Past Surgical History Past Surgical History: Colon Resection, Other Family History Family History: No Significant Social History ALCOHOL: none Current Problem List Problem List Problems Medical Problems: (1) Failure to thrive Status: Acute (2) Hypoxia Status: Acute (3) Shock Status: Acute Current Medications Current Medications Current Medications Sodium Chloride 1,000 ml @ 0 mls/hr 1X ONCE IV Last administered on 04/27/20at 12:38; Start 04/27/20 at 12:00; Stop 04/27/20 at 12:07; Status DC Ceftriaxone Sodium (Rocephin) 1 gm 1X ONCE IVP Last administered on 04/27/20at 12:39; Start 04/27/20 at 12:00; Stop 04/27/20 at 12:07; Status DC Fentanyl Citrate (Fentanyl 2ml Vial) 50 mcg 1X ONCE IVP Last administered on 04/27/20at 12:39; Start 04/27/20 at 12:00; Stop 04/27/20 at 12:07; Status DC Alteplase, Recombinant (Cathflo For Central Catheter Clearance) 1 mg 1X ONCE INT CAT Last administered on 04/27/20at 13:37; Start 04/27/20 at 13:15; Stop 04/27/20 at 13:16; Status DC Norepinephrine Bitartrate 8 mg/ Dextrose 258 ml @ 11.61 mls/ hr 1X ONCE IV Last administered on 04/27/20at 13:52; Start 04/27/20 at 14:00; Stop 04/28/20 at 12:13 Morphine Sulfate (Morphine Sulfate) 5 mg 1X ONCE IV Last administered on 04/27/20at 16:54; Start 04/27/20 at 16:15; Stop 04/27/20 at 16:16; Status DC Sodium Chloride 1,000 ml @ 0 mls/hr 1X ONCE IV Last administered on 04/27/20at 18:30; Start 04/27/20 at 18:00; Stop 04/27/20 at 18:01; Status DC Ondansetron HCl (Zofran) 4 mg PRN Q6HRS PRN IVP NAUSEA/VOMITING; Start 04/28/20 at 09:15 Sodium Chloride 1,000 ml @ 60 mls/hr [id number] IV ; Start 04/28/20 at 09:15 Ceftriaxone Sodium (Rocephin) 1 gm Q24H IVP ; Start 04/28/20 at 10:00; Stop 04/28/20 at 09:56; Status DC Meropenem 500 mg/ Sodium Chloride 50 ml @ 100 mls/hr Q8HRS IV ; Start 04/28/20 at 14:00; Status UNV Meropenem 1 gm/ Sodium Chloride 100 ml @ 200 mls/hr Q12HR IV Last administered on 04/28/20at 10:40; Start 04/28/20 at 10:00; Stop 04/28/20 at 11:25; Status DC Sodium Bicarbonate 50 meq/Sodium Chloride 1,050 ml @ 80 mls/hr Q13H8M IV ; Start 04/28/20 at 11:00 Bumetanide (Bumex) 1 mg [id number] IV ; Start 04/28/20 at 11:15; Status UNV Meropenem 500 mg/ Sodium Chloride 50 ml @ 100 mls/hr Q12HR IV ; Start 04/28/20 at 21:00 Active Scripts Active Thera-M Tablet (Multivits,Ca,Minerals/Iron/Fa) 1 Each Tablet 1 Tab PO DAILY 30 Days Folic Acid 1 Mg Tablet 1 Mg PO DAILY 30 Days Reported Compazine (Prochlorperazine Maleate) 10 Mg Tablet 1 Tab PO Q6HRS 30 Days Melatonin 3 Mg Tab.rapdis 1 Tab PO QHS 30 Days Loperamide (Loperamide Hcl) 2 Mg Tablet 1 Tab PO Q4HRS 30 Days Lomotil Tablet (Diphenoxylate Hcl/Atropine) 1 Each Tablet 1 Tab PO TID Buspirone Hcl 5 Mg Tablet 1 Tab PO QID Vitamin C (Ascorbic Acid) 500 Mg Capsule.er 1 Cap PO DAILY 30 Days Aspirin 81 Mg Tab.chew 1 Tab PO DAILY Potassium Chloride (Potassium Chloride) 10 Meq Tab.sr.24h 10 Meq PO DAILY Namenda (Memantine Hcl) 10 Mg Tablet 10 Mg PO BID Zofran (Ondansetron Hcl) 4 Mg Tablet 1 Tab PO PRN Q6-8HRS Acetaminophen 325 Mg Tablet 325 Mg PO Q4HRS Donepezil Hcl 10 Mg Tablet 1 Tab PO DAILY Levothyroxine Sodium 50 Mcg Tablet 75 Mcg PO DAILYAC Xalatan (Latanoprost) 2.5 Ml Drops 1 Drop EACHEYE QHS Pepcid (Famotidine) 20 Mg Tablet 20 Mg PO DAILY Ativan (Lorazepam) 0.5 Mg Tablet 0.5 Mg PO Q4HRS PRN Allergies Allergies: Coded Allergies: Iodinated Contrast Media (Verified Allergy, Intermediate, 04/20/19) rash iodine (Verified Allergy, Intermediate, 06/23/19) latex (Verified Allergy, Intermediate, 06/23/19) ROS Review of System Per HPI, Physical Exam Physical Exam GENERAL: NAD HEENT: OM dry NECK: Supple LUNGS: Clear to auscultation, decreased at bases, Non labored HEART: RRR, S1, S2 present. ABDOMEN: Soft, nontender. EXTREMITIES: No edema. NEUROLOGIC: decreased memory, does not really talk much. PSYCHIATRIC: depressed. SKIN: No ulcerations or rashes Vital Signs Vital Signs Date Time Temp Pulse Resp B/P (MAP) Pulse Ox O2 Delivery O2 Flow Rate FiO2 04/28/20 10:53 97.8 107 18 65/30 (42) 93 Nasal Cannula 4.0 97.8 Assessment & Plan RUFINO - Vasomotor/Sepsis/Hypotension , s/p Chemo last week, r/o urinary retention Cr yesterday 1.75 at the [place] , worsening renal function today, per Pt and family no intervention IVF , Bladder scan, Place Gu, Supportive care, Strict I/O , Avoid nephrotoxins CKD 2 - Lt renal atrophy US 2019 RUFINO in Jun 2019, resolved Sepsis with Hypotension- Levaphed in ER HyperNatremia- sec to Dehydration IVF , Monitor Metabolic acidosis- IV bicarb Metastatic colon cancer- po ?Gemcitabine per [facility] records- duration not clear from the reocrds (Renal failure known side effect) -Followed by Dr. Pryor at [facility] Malnutrition, severe protein malnutrition Hx of dementia - Cognitive decline Neutropenia s/p chemotherapy 04/18 per family Thrombocytopenia Small-bowel obstruction secondary to a fibrous adhesion, small bowel segmental resection: Lactic acidosis Family considering hospice care D/w DPOA/nephrew and RN Labs Labs Laboratory Tests Test 04/27/20 13:32 04/27/20 15:22 04/28/20 06:34 04/28/20 09:00 O2 Saturation 98 % (92-99) Arterial Blood pH 7.29 (7.35-7.45) Arterial Blood pCO2 at Patient Temp 19 mmHg (35-46) Arterial Blood pO2 at Patient Temp 284 mmHg (65-108) Arterial Blood HCO3 9 mmol/L (21-28) Arterial Blood Base Excess -16 mmol/L (-3-3) FiO2 100 Lactic Acid Level 5.8 mmol/L (0.4-2.0) White Blood Count 0.8 x10^3/uL (4.0-11.0) Red Blood Count 3.18 x10^6/uL (3.50-5.40) Hemoglobin 11.4 g/dL (12.0-15.5) Hematocrit 34.2 % (36.0-47.0) Mean Corpuscular Volume 107 fL (79-100) Mean Corpuscular Hemoglobin 36 pg (25-35) Mean Corpuscular Hemoglobin Concent 33 g/dL (31-37) Red Cell Distribution Width 23.3 % (11.5-14.5) Platelet Count 73 x10^3/uL (140-400) Neutrophils (%) (Auto) 14 % (31-73) Lymphocytes (%) (Auto) 80 % (24-48) Monocytes (%) (Auto) 2 % (0-9) Eosinophils (%) (Auto) 4 % (0-3) Basophils (%) (Auto) 0 % (0-3) Neutrophils # (Auto) 0.1 x10^3/uL (1.8-7.7) Lymphocytes # (Auto) 0.6 x10^3/uL (1.0-4.8) Monocytes # (Auto) 0.0 x10^3/uL (0.0-1.1) Eosinophils # (Auto) 0.0 x10^3/uL (0.0-0.7) Basophils # (Auto) 0.0 x10^3/uL (0.0-0.2) Segmented Neutrophils % 12 % (35-66) Lymphocytes % 86 % (24-48) Monocytes % 1 % (0-10) Eosinophils % 1 % (0-5) Nucleated Red Blood Cells 1 Platelet Estimate Decreased (ADEQUATE) Anisocytosis Slight Macrocytosis Slight Urine Collection Type Unknown Urine Color Elissa Urine Clarity Cloudy Urine pH 5.5 (<5.0-8.0) Urine Specific [place] 1.025 (1.000-1.030) Urine Protein 100 mg/dL (NEG-TRACE) Urine Glucose (UA) Negative mg/dL (NEG) Urine Ketones (Stick) Negative mg/dL (NEG) Urine Blood Small (NEG) Urine Nitrite Negative (NEG) Urine Bilirubin Small (NEG) Urine Urobilinogen Dipstick 0.2 mg/dL (0.2 mg/dL) Urine Leukocyte Esterase Negative (NEG) Urine RBC 3-5 /HPF (0-2) Urine WBC 1-4 /HPF (0-4) Urine Squamous Epithelial Cells Few /LPF Urine Amorphous Sediment Present /HPF Urine Bacteria Few /HPF (0-FEW) Urine Hyaline Casts Many /HPF Urine Granular Casts Few /HPF Urine Mucus Slight /LPF Test 04/28/20 09:34 Sodium Level 154 mmol/L (136-145) Potassium Level 4.2 mmol/L (3.5-5.1) Chloride Level 121 mmol/L (98-107) Carbon Dioxide Level 11 mmol/L (21-32) Anion Gap 22 (6-14) Blood Urea Nitrogen 69 mg/dL (7-20) Creatinine 3.5 mg/dL (0.6-1.0) Estimated GFR (Cockcroft-Gault) 12.4 BUN/Creatinine Ratio 20 (6-20) Glucose Level 69 mg/dL (70-99) Lactic Acid Level 3.1 mmol/L (0.4-2.0) Calcium Level 8.1 mg/dL (8.5-10.1) Total Bilirubin 0.7 mg/dL (0.2-1.0) Aspartate Amino Transf (AST/SGOT) 19 U/L (15-37) Alanine Aminotransferase (ALT/SGPT) 28 U/L (14-59) Alkaline Phosphatase 100 U/L (46-116) Troponin I Quantitative < 0.017 ng/mL (0.000-0.055) WP-Asq-H-Type Natriuretic Peptide 9675 pg/mL (0-449) Total Protein 4.9 g/dL (6.4-8.2) Albumin 2.3 g/dL (3.4-5.0) Albumin/Globulin Ratio 0.9 (1.0-1.7) Laboratory Tests Test 04/27/20 13:32 04/27/20 15:22 04/28/20 06:34 04/28/20 09:00 O2 Saturation 98 % (92-99) Arterial Blood pH 7.29 (7.35-7.45) Arterial Blood pCO2 at Patient Temp 19 mmHg (35-46) Arterial Blood pO2 at Patient Temp 284 mmHg (65-108) Arterial Blood HCO3 9 mmol/L (21-28) Arterial Blood Base Excess -16 mmol/L (-3-3) FiO2 100 Lactic Acid Level 5.8 mmol/L (0.4-2.0) White Blood Count 0.8 x10^3/uL (4.0-11.0) Red Blood Count 3.18 x10^6/uL (3.50-5.40) Hemoglobin 11.4 g/dL (12.0-15.5) Hematocrit 34.2 % (36.0-47.0) Mean Corpuscular Volume 107 fL (79-100) Mean Corpuscular Hemoglobin 36 pg (25-35) Mean Corpuscular Hemoglobin Concent 33 g/dL (31-37) Red Cell Distribution Width 23.3 % (11.5-14.5) Platelet Count 73 x10^3/uL (140-400) Neutrophils (%) (Auto) 14 % (31-73) Lymphocytes (%) (Auto) 80 % (24-48) Monocytes (%) (Auto) 2 % (0-9) Eosinophils (%) (Auto) 4 % (0-3) Basophils (%) (Auto) 0 % (0-3) Neutrophils # (Auto) 0.1 x10^3/uL (1.8-7.7) Lymphocytes # (Auto) 0.6 x10^3/uL (1.0-4.8) Monocytes # (Auto) 0.0 x10^3/uL (0.0-1.1) Eosinophils # (Auto) 0.0 x10^3/uL (0.0-0.7) Basophils # (Auto) 0.0 x10^3/uL (0.0-0.2) Segmented Neutrophils % 12 % (35-66) Lymphocytes % 86 % (24-48) Monocytes % 1 % (0-10) Eosinophils % 1 % (0-5) Nucleated Red Blood Cells 1 Platelet Estimate Decreased (ADEQUATE) Anisocytosis Slight Macrocytosis Slight Urine Collection Type Unknown Urine Color Elissa Urine Clarity Cloudy Urine pH 5.5 (<5.0-8.0) Urine Specific [place] 1.025 (1.000-1.030) Urine Protein 100 mg/dL (NEG-TRACE) Urine Glucose (UA) Negative mg/dL (NEG) Urine Ketones (Stick) Negative mg/dL (NEG) Urine Blood Small (NEG) Urine Nitrite Negative (NEG) Urine Bilirubin Small (NEG) Urine Urobilinogen Dipstick 0.2 mg/dL (0.2 mg/dL) Urine Leukocyte Esterase Negative (NEG) Urine RBC 3-5 /HPF (0-2) Urine WBC 1-4 /HPF (0-4) Urine Squamous Epithelial Cells Few /LPF Urine Amorphous Sediment Present /HPF Urine Bacteria Few /HPF (0-FEW) Urine Hyaline Casts Many /HPF Urine Granular Casts Few /HPF Urine Mucus Slight /LPF Test 04/28/20 09:34 Sodium Level 154 mmol/L (136-145) Potassium Level 4.2 mmol/L (3.5-5.1) Chloride Level 121 mmol/L (98-107) Carbon Dioxide Level 11 mmol/L (21-32) Anion Gap 22 (6-14) Blood Urea Nitrogen 69 mg/dL (7-20) Creatinine 3.5 mg/dL (0.6-1.0) Estimated GFR (Cockcroft-Gault) 12.4 BUN/Creatinine Ratio 20 (6-20) Glucose Level 69 mg/dL (70-99) Lactic Acid Level 3.1 mmol/L (0.4-2.0) Calcium Level 8.1 mg/dL (8.5-10.1) Total Bilirubin 0.7 mg/dL (0.2-1.0) Aspartate Amino Transf (AST/SGOT) 19 U/L (15-37) Alanine Aminotransferase (ALT/SGPT) 28 U/L (14-59) Alkaline Phosphatase 100 U/L (46-116) Troponin I Quantitative < 0.017 ng/mL (0.000-0.055) HW-Jsb-J-Type Natriuretic Peptide 9675 pg/mL (0-449) Total Protein 4.9 g/dL (6.4-8.2) Albumin 2.3 g/dL (3.4-5.0) Albumin/Globulin Ratio 0.9 (1.0-1.7) Review All relevant outside records, renal labs, imaging studies, telemetry/EKG's were reviewed. Images Images Renal US in 2019 he longitudinal and AP and transverse dimensions of the right kidney are 9.9 cm and 3.3 cm and 4.6 cm respectively. There is mildly dilated extrarenal pelvis versus an extra renal cyst measuring 15 mm in greatest dimension. The longitudinal and AP and transverse dimensions of the left kidney are 7.7 cm and 4.5 cm and 3.2 cm respectively. Left kidney is not well visualized. No definite renal mass is seen on either side otherwise. No hydronephrosis is seen on either side. Urinary bladder is mildly distended and no intraluminal echodensities or masses are seen. IMPRESSION: No hydronephrosis. Left renal atrophy. MEKHI SARKAR MD Apr 28, 2020 12:13
--- NOTE | 2020-04-28 12:17 | PDOC2 ---
CONSULT Date of Consult Date of Consult DATE: 04/28/20 TIME: 12:16 Reason for Consult Reason for Consult: Lactic acidosis/abd pain/ARF Past Medical History Cardiovascular: HTN CENTRAL NERVOUS SYSTEM: Dementia Musculoskeletal: Osteoarthritis Infectious disease: No pertinent hx Renal/: No pertinent hx Endocrine: No pertinent hx, Hypothyroidism Past Surgical History Past Surgical History: Colon Resection, Other Family History Family History: No Significant Social History ALCOHOL: none Current Problem List Problem List Problems Medical Problems: (1) Failure to thrive Status: Acute (2) Hypoxia Status: Acute (3) Shock Status: Acute Current Medications Current Medications Current Medications Sodium Chloride 1,000 ml @ 0 mls/hr 1X ONCE IV Last administered on 04/27/20at 12:38; Start 04/27/20 at 12:00; Stop 04/27/20 at 12:07; Status DC Ceftriaxone Sodium (Rocephin) 1 gm 1X ONCE IVP Last administered on 04/27/20at 12:39; Start 04/27/20 at 12:00; Stop 04/27/20 at 12:07; Status DC Fentanyl Citrate (Fentanyl 2ml Vial) 50 mcg 1X ONCE IVP Last administered on 04/27/20at 12:39; Start 04/27/20 at 12:00; Stop 04/27/20 at 12:07; Status DC Alteplase, Recombinant (Cathflo For Central Catheter Clearance) 1 mg 1X ONCE INT CAT Last administered on 04/27/20at 13:37; Start 04/27/20 at 13:15; Stop 04/27/20 at 13:16; Status DC Norepinephrine Bitartrate 8 mg/ Dextrose 258 ml @ 11.61 mls/ hr 1X ONCE IV Last administered on 04/27/20at 13:52; Start 04/27/20 at 14:00; Stop 04/28/20 at 12:13; Status DC Morphine Sulfate (Morphine Sulfate) 5 mg 1X ONCE IV Last administered on 04/27/20at 16:54; Start 04/27/20 at 16:15; Stop 04/27/20 at 16:16; Status DC Sodium Chloride 1,000 ml @ 0 mls/hr 1X ONCE IV Last administered on 04/27/20at 18:30; Start 04/27/20 at 18:00; Stop 04/27/20 at 18:01; Status DC Ondansetron HCl (Zofran) 4 mg PRN Q6HRS PRN IVP NAUSEA/VOMITING; Start 04/28/20 at 09:15 Sodium Chloride 1,000 ml @ 60 mls/hr [id number] IV ; Start 04/28/20 at 09:15 Ceftriaxone Sodium (Rocephin) 1 gm Q24H IVP ; Start 04/28/20 at 10:00; Stop 04/28/20 at 09:56; Status DC Meropenem 500 mg/ Sodium Chloride 50 ml @ 100 mls/hr Q8HRS IV ; Start 04/28/20 at 14:00; Status UNV Meropenem 1 gm/ Sodium Chloride 100 ml @ 200 mls/hr Q12HR IV Last administered on 04/28/20at 10:40; Start 04/28/20 at 10:00; Stop 04/28/20 at 11:25; Status DC Sodium Bicarbonate 50 meq/Sodium Chloride 1,050 ml @ 80 mls/hr Q13H8M IV ; Start 04/28/20 at 11:00 Bumetanide (Bumex) 1 mg [id number] IV ; Start 04/28/20 at 11:15; Status UNV Meropenem 500 mg/ Sodium Chloride 50 ml @ 100 mls/hr Q12HR IV ; Start 04/28/20 at 21:00 Active Scripts Active Thera-M Tablet (Multivits,Ca,Minerals/Iron/Fa) 1 Each Tablet 1 Tab PO DAILY 30 Days Folic Acid 1 Mg Tablet 1 Mg PO DAILY 30 Days Reported Compazine (Prochlorperazine Maleate) 10 Mg Tablet 1 Tab PO Q6HRS 30 Days Melatonin 3 Mg Tab.rapdis 1 Tab PO QHS 30 Days Loperamide (Loperamide Hcl) 2 Mg Tablet 1 Tab PO Q4HRS 30 Days Lomotil Tablet (Diphenoxylate Hcl/Atropine) 1 Each Tablet 1 Tab PO TID Buspirone Hcl 5 Mg Tablet 1 Tab PO QID Vitamin C (Ascorbic Acid) 500 Mg Capsule.er 1 Cap PO DAILY 30 Days Aspirin 81 Mg Tab.chew 1 Tab PO DAILY Potassium Chloride (Potassium Chloride) 10 Meq Tab.sr.24h 10 Meq PO DAILY Namenda (Memantine Hcl) 10 Mg Tablet 10 Mg PO BID Zofran (Ondansetron Hcl) 4 Mg Tablet 1 Tab PO PRN Q6-8HRS Acetaminophen 325 Mg Tablet 325 Mg PO Q4HRS Donepezil Hcl 10 Mg Tablet 1 Tab PO DAILY Levothyroxine Sodium 50 Mcg Tablet 75 Mcg PO DAILYAC Xalatan (Latanoprost) 2.5 Ml Drops 1 Drop EACHEYE QHS Pepcid (Famotidine) 20 Mg Tablet 20 Mg PO DAILY Ativan (Lorazepam) 0.5 Mg Tablet 0.5 Mg PO Q4HRS PRN Allergies Allergies: Coded Allergies: Iodinated Contrast Media (Verified Allergy, Intermediate, 04/20/19) rash iodine (Verified Allergy, Intermediate, 06/23/19) latex (Verified Allergy, Intermediate, 06/23/19) Vitals VITALS Vital Signs Date Time Temp Pulse Resp B/P (MAP) Pulse Ox O2 Delivery O2 Flow Rate FiO2 04/28/20 10:53 97.8 107 18 65/30 (42) 93 Nasal Cannula 4.0 97.8 Labs Labs Laboratory Tests Test 04/27/20 13:32 04/27/20 15:22 04/28/20 06:34 04/28/20 09:00 O2 Saturation 98 % (92-99) Arterial Blood pH 7.29 (7.35-7.45) Arterial Blood pCO2 at Patient Temp 19 mmHg (35-46) Arterial Blood pO2 at Patient Temp 284 mmHg (65-108) Arterial Blood HCO3 9 mmol/L (21-28) Arterial Blood Base Excess -16 mmol/L (-3-3) FiO2 100 Lactic Acid Level 5.8 mmol/L (0.4-2.0) White Blood Count 0.8 x10^3/uL (4.0-11.0) Red Blood Count 3.18 x10^6/uL (3.50-5.40) Hemoglobin 11.4 g/dL (12.0-15.5) Hematocrit 34.2 % (36.0-47.0) Mean Corpuscular Volume 107 fL (79-100) Mean Corpuscular Hemoglobin 36 pg (25-35) Mean Corpuscular Hemoglobin Concent 33 g/dL (31-37) Red Cell Distribution Width 23.3 % (11.5-14.5) Platelet Count 73 x10^3/uL (140-400) Neutrophils (%) (Auto) 14 % (31-73) Lymphocytes (%) (Auto) 80 % (24-48) Monocytes (%) (Auto) 2 % (0-9) Eosinophils (%) (Auto) 4 % (0-3) Basophils (%) (Auto) 0 % (0-3) Neutrophils # (Auto) 0.1 x10^3/uL (1.8-7.7) Lymphocytes # (Auto) 0.6 x10^3/uL (1.0-4.8) Monocytes # (Auto) 0.0 x10^3/uL (0.0-1.1) Eosinophils # (Auto) 0.0 x10^3/uL (0.0-0.7) Basophils # (Auto) 0.0 x10^3/uL (0.0-0.2) Segmented Neutrophils % 12 % (35-66) Lymphocytes % 86 % (24-48) Monocytes % 1 % (0-10) Eosinophils % 1 % (0-5) Nucleated Red Blood Cells 1 Platelet Estimate Decreased (ADEQUATE) Anisocytosis Slight Macrocytosis Slight Urine Collection Type Unknown Urine Color Elissa Urine Clarity Cloudy Urine pH 5.5 (<5.0-8.0) Urine Specific [place] 1.025 (1.000-1.030) Urine Protein 100 mg/dL (NEG-TRACE) Urine Glucose (UA) Negative mg/dL (NEG) Urine Ketones (Stick) Negative mg/dL (NEG) Urine Blood Small (NEG) Urine Nitrite Negative (NEG) Urine Bilirubin Small (NEG) Urine Urobilinogen Dipstick 0.2 mg/dL (0.2 mg/dL) Urine Leukocyte Esterase Negative (NEG) Urine RBC 3-5 /HPF (0-2) Urine WBC 1-4 /HPF (0-4) Urine Squamous Epithelial Cells Few /LPF Urine Amorphous Sediment Present /HPF Urine Bacteria Few /HPF (0-FEW) Urine Hyaline Casts Many /HPF Urine Granular Casts Few /HPF Urine Mucus Slight /LPF Test 04/28/20 09:34 Sodium Level 154 mmol/L (136-145) Potassium Level 4.2 mmol/L (3.5-5.1) Chloride Level 121 mmol/L (98-107) Carbon Dioxide Level 11 mmol/L (21-32) Anion Gap 22 (6-14) Blood Urea Nitrogen 69 mg/dL (7-20) Creatinine 3.5 mg/dL (0.6-1.0) Estimated GFR (Cockcroft-Gault) 12.4 BUN/Creatinine Ratio 20 (6-20) Glucose Level 69 mg/dL (70-99) Lactic Acid Level 3.1 mmol/L (0.4-2.0) Calcium Level 8.1 mg/dL (8.5-10.1) Total Bilirubin 0.7 mg/dL (0.2-1.0) Aspartate Amino Transf (AST/SGOT) 19 U/L (15-37) Alanine Aminotransferase (ALT/SGPT) 28 U/L (14-59) Alkaline Phosphatase 100 U/L (46-116) Troponin I Quantitative < 0.017 ng/mL (0.000-0.055) QK-Ops-N-Type Natriuretic Peptide 9675 pg/mL (0-449) Total Protein 4.9 g/dL (6.4-8.2) Albumin 2.3 g/dL (3.4-5.0) Albumin/Globulin Ratio 0.9 (1.0-1.7) Laboratory Tests Test 04/27/20 13:32 04/27/20 15:22 04/28/20 06:34 04/28/20 09:00 O2 Saturation 98 % (92-99) Arterial Blood pH 7.29 (7.35-7.45) Arterial Blood pCO2 at Patient Temp 19 mmHg (35-46) Arterial Blood pO2 at Patient Temp 284 mmHg (65-108) Arterial Blood HCO3 9 mmol/L (21-28) Arterial Blood Base Excess -16 mmol/L (-3-3) FiO2 100 Lactic Acid Level 5.8 mmol/L (0.4-2.0) White Blood Count 0.8 x10^3/uL (4.0-11.0) Red Blood Count 3.18 x10^6/uL (3.50-5.40) Hemoglobin 11.4 g/dL (12.0-15.5) Hematocrit 34.2 % (36.0-47.0) Mean Corpuscular Volume 107 fL (79-100) Mean Corpuscular Hemoglobin 36 pg (25-35) Mean Corpuscular Hemoglobin Concent 33 g/dL (31-37) Red Cell Distribution Width 23.3 % (11.5-14.5) Platelet Count 73 x10^3/uL (140-400) Neutrophils (%) (Auto) 14 % (31-73) Lymphocytes (%) (Auto) 80 % (24-48) Monocytes (%) (Auto) 2 % (0-9) Eosinophils (%) (Auto) 4 % (0-3) Basophils (%) (Auto) 0 % (0-3) Neutrophils # (Auto) 0.1 x10^3/uL (1.8-7.7) Lymphocytes # (Auto) 0.6 x10^3/uL (1.0-4.8) Monocytes # (Auto) 0.0 x10^3/uL (0.0-1.1) Eosinophils # (Auto) 0.0 x10^3/uL (0.0-0.7) Basophils # (Auto) 0.0 x10^3/uL (0.0-0.2) Segmented Neutrophils % 12 % (35-66) Lymphocytes % 86 % (24-48) Monocytes % 1 % (0-10) Eosinophils % 1 % (0-5) Nucleated Red Blood Cells 1 Platelet Estimate Decreased (ADEQUATE) Anisocytosis Slight Macrocytosis Slight Urine Collection Type Unknown Urine Color Elissa Urine Clarity Cloudy Urine pH 5.5 (<5.0-8.0) Urine Specific [place] 1.025 (1.000-1.030) Urine Protein 100 mg/dL (NEG-TRACE) Urine Glucose (UA) Negative mg/dL (NEG) Urine Ketones (Stick) Negative mg/dL (NEG) Urine Blood Small (NEG) Urine Nitrite Negative (NEG) Urine Bilirubin Small (NEG) Urine Urobilinogen Dipstick 0.2 mg/dL (0.2 mg/dL) Urine Leukocyte Esterase Negative (NEG) Urine RBC 3-5 /HPF (0-2) Urine WBC 1-4 /HPF (0-4) Urine Squamous Epithelial Cells Few /LPF Urine Amorphous Sediment Present /HPF Urine Bacteria Few /HPF (0-FEW) Urine Hyaline Casts Many /HPF Urine Granular Casts Few /HPF Urine Mucus Slight /LPF Test 04/28/20 09:34 Sodium Level 154 mmol/L (136-145) Potassium Level 4.2 mmol/L (3.5-5.1) Chloride Level 121 mmol/L (98-107) Carbon Dioxide Level 11 mmol/L (21-32) Anion Gap 22 (6-14) Blood Urea Nitrogen 69 mg/dL (7-20) Creatinine 3.5 mg/dL (0.6-1.0) Estimated GFR (Cockcroft-Gault) 12.4 BUN/Creatinine Ratio 20 (6-20) Glucose Level 69 mg/dL (70-99) Lactic Acid Level 3.1 mmol/L (0.4-2.0) Calcium Level 8.1 mg/dL (8.5-10.1) Total Bilirubin 0.7 mg/dL (0.2-1.0) Aspartate Amino Transf (AST/SGOT) 19 U/L (15-37) Alanine Aminotransferase (ALT/SGPT) 28 U/L (14-59) Alkaline Phosphatase 100 U/L (46-116) Troponin I Quantitative < 0.017 ng/mL (0.000-0.055) LY-Yyv-O-Type Natriuretic Peptide 9675 pg/mL (0-449) Total Protein 4.9 g/dL (6.4-8.2) Albumin 2.3 g/dL (3.4-5.0) Albumin/Globulin Ratio 0.9 (1.0-1.7) Assessment/Plan Assessment/Plan Abd pain- with ischemic bowel s/p prior resection now with neutropenia and ARF. Prognosis guarded. BNR/no surgery.Family aware. MADY FRANKEL MD Apr 28, 2020 12:17
[2020-04-28] MEDS: SODIUM BICARBONATE VIAL 50 MEQ in IV 1/2 NORMAL SALINE 1,000 ML IV SCH (12:33)
--- NOTE | 2020-04-28 12:39 | PDOC ---
Infectious Disease Note Vital Sign Vital Signs Vital Signs Date Time Temp Pulse Resp B/P (MAP) Pulse Ox O2 Delivery O2 Flow Rate FiO2 04/28/20 10:53 97.8 107 18 65/30 (42) 93 Nasal Cannula 4.0 97.8 Labs Lab Laboratory Tests Test 04/27/20 13:32 04/27/20 15:22 04/28/20 06:34 04/28/20 09:00 O2 Saturation 98 % (92-99) Arterial Blood pH 7.29 (7.35-7.45) Arterial Blood pCO2 at Patient Temp 19 mmHg (35-46) Arterial Blood pO2 at Patient Temp 284 mmHg (65-108) Arterial Blood HCO3 9 mmol/L (21-28) Arterial Blood Base Excess -16 mmol/L (-3-3) FiO2 100 Lactic Acid Level 5.8 mmol/L (0.4-2.0) White Blood Count 0.8 x10^3/uL (4.0-11.0) Red Blood Count 3.18 x10^6/uL (3.50-5.40) Hemoglobin 11.4 g/dL (12.0-15.5) Hematocrit 34.2 % (36.0-47.0) Mean Corpuscular Volume 107 fL (79-100) Mean Corpuscular Hemoglobin 36 pg (25-35) Mean Corpuscular Hemoglobin Concent 33 g/dL (31-37) Red Cell Distribution Width 23.3 % (11.5-14.5) Platelet Count 73 x10^3/uL (140-400) Neutrophils (%) (Auto) 14 % (31-73) Lymphocytes (%) (Auto) 80 % (24-48) Monocytes (%) (Auto) 2 % (0-9) Eosinophils (%) (Auto) 4 % (0-3) Basophils (%) (Auto) 0 % (0-3) Neutrophils # (Auto) 0.1 x10^3/uL (1.8-7.7) Lymphocytes # (Auto) 0.6 x10^3/uL (1.0-4.8) Monocytes # (Auto) 0.0 x10^3/uL (0.0-1.1) Eosinophils # (Auto) 0.0 x10^3/uL (0.0-0.7) Basophils # (Auto) 0.0 x10^3/uL (0.0-0.2) Segmented Neutrophils % 12 % (35-66) Lymphocytes % 86 % (24-48) Monocytes % 1 % (0-10) Eosinophils % 1 % (0-5) Nucleated Red Blood Cells 1 Platelet Estimate Decreased (ADEQUATE) Anisocytosis Slight Macrocytosis Slight Urine Collection Type Unknown Urine Color Elissa Urine Clarity Cloudy Urine pH 5.5 (<5.0-8.0) Urine Specific [place] 1.025 (1.000-1.030) Urine Protein 100 mg/dL (NEG-TRACE) Urine Glucose (UA) Negative mg/dL (NEG) Urine Ketones (Stick) Negative mg/dL (NEG) Urine Blood Small (NEG) Urine Nitrite Negative (NEG) Urine Bilirubin Small (NEG) Urine Urobilinogen Dipstick 0.2 mg/dL (0.2 mg/dL) Urine Leukocyte Esterase Negative (NEG) Urine RBC 3-5 /HPF (0-2) Urine WBC 1-4 /HPF (0-4) Urine Squamous Epithelial Cells Few /LPF Urine Amorphous Sediment Present /HPF Urine Bacteria Few /HPF (0-FEW) Urine Hyaline Casts Many /HPF Urine Granular Casts Few /HPF Urine Mucus Slight /LPF Test 04/28/20 09:34 Sodium Level 154 mmol/L (136-145) Potassium Level 4.2 mmol/L (3.5-5.1) Chloride Level 121 mmol/L (98-107) Carbon Dioxide Level 11 mmol/L (21-32) Anion Gap 22 (6-14) Blood Urea Nitrogen 69 mg/dL (7-20) Creatinine 3.5 mg/dL (0.6-1.0) Estimated GFR (Cockcroft-Gault) 12.4 BUN/Creatinine Ratio 20 (6-20) Glucose Level 69 mg/dL (70-99) Lactic Acid Level 3.1 mmol/L (0.4-2.0) Calcium Level 8.1 mg/dL (8.5-10.1) Total Bilirubin 0.7 mg/dL (0.2-1.0) Aspartate Amino Transf (AST/SGOT) 19 U/L (15-37) Alanine Aminotransferase (ALT/SGPT) 28 U/L (14-59) Alkaline Phosphatase 100 U/L (46-116) Troponin I Quantitative < 0.017 ng/mL (0.000-0.055) QE-Htp-S-Type Natriuretic Peptide 9675 pg/mL (0-449) Total Protein 4.9 g/dL (6.4-8.2) Albumin 2.3 g/dL (3.4-5.0) Albumin/Globulin Ratio 0.9 (1.0-1.7) Objective Assessment Sepsis with hypotension Neutropenia s/p chemotherapy 04/18 per family Lactic acidosis RUFINO, metabolic acidosis and hypernatremia Dyspnea, 5L Pancytopenia Metastatic colon cancer undergoing chemotherapy -Followed by Dr. Pryor at [facility] -Port-a-cath in place Dementia Hypothyroidism snf resident Plan Plan of Care Continue meropenem, reanlly adjusted Add dapto BC x 2 IVFs Monitor labs Maintain aspiration precautions Neutropenic precautions DNR Family considering hospice care D/w nursing and DPOA/nephrew at bedside Thank you Attending Co-Sign The patient was seen and interviewed as well as examined at the bedside. The chart was reviewed. The case was discussed. Agree with the plan of care. TOMMY CARSON APRN Apr 28, 2020 12:39 KATE RICE MD Apr 28, 2020 12:40
[2020-04-28] MEDS: FOLIC ACID 1 MG TABLET. PO SCH (13:00)
[2020-04-28] MEDS: ASCORBIC ACID 500 MG TABLET PO SCH (13:00)
[2020-04-28] MEDS: MULTIVITAMIN with MINERAL TABLET. PO SCH (13:00)
[2020-04-28] MEDS ORDERED: ONDANSETRON ODT 4 MG TAB.RAPDIS. PO PRN (13:00)
[2020-04-28] MEDS ORDERED: MORPHINE SULFATE 20 MG/ML CONC SOLUTION. SL PRN (13:00)
[2020-04-28] MEDS ORDERED: LORazepam 0.5 MG TABLET PO PRN (13:00)
--- NOTE | 2020-04-28 13:58 | CONS ---
DATE OF CONSULTATION: 04/28/2020 REQUESTING PHYSICIAN: Kartik Ahumada MD REASON FOR CONSULTATION: Lactic acidosis and possible sepsis. HISTORY OF PRESENT ILLNESS: The patient is an 84-year-old female with a past medical history of metastatic colon cancer, who is currently undergoing chemotherapy. She is followed by Dr. Pryor at [facility]. Her last chemo treatment was reportedly on 04/18. According to her nephew, she was also taken some oral chemo medication as well. Over the last week or so, the patient has not been feeling very well and her appetite has been poor. Her weight is normally between 106 and 112 and now she is down to 92 pounds. She has had some nausea and vomiting. On arrival to the ER, she was hypotensive, tachycardic and afebrile. She was neutropenic and pancytopenic. A chest x-ray showed clear lungs. She was dyspneic, requiring a nonrebreather. She was also found to have acute kidney injury, hypernatremia and metabolic acidosis. She started on bicarbonate and Rocephin. Today, the patient says that she is feeling better. She denies fevers, chills or body aches. She denies shortness of air, cough or chest discomfort. She is now on 5 liters of oxygen. She has a Port-A-Cath in place. Denies nausea, vomiting or diarrhea. She is normally ambulatory with assistive device. She is not very hungry. PAST MEDICAL HISTORY: Metastatic colon cancer, undergoing chemotherapy. Dementia, hypothyroidism, anxiety, insomnia, glaucoma, COPD, diverticulosis, hiatal hernia, incontinence, history of MSSA line infection. PAST SURGICAL HISTORY: Bowel resection and Port-A-Cath placement. FAMILY HISTORY: Dementia. SOCIAL HISTORY: The patient is a skilled nursing resident. Her nephew is her DPOA. ALLERGIES: CONTRAST MEDIA, IODINE, LATEX. MEDICATIONS: Reviewed on the MAR and includes meropenem. Her medication list at the skilled nursing was also reviewed and included prednisone. REVIEW OF SYSTEMS: Per HPI, otherwise all other review of systems are negative. PHYSICAL EXAMINATION: VITAL SIGNS: Temperature is 97.8, blood pressure 65/30, heart rate 107, respiratory rate 18, pulse oximetry is 93% on 4 liters oxygen. BMI 16.4. GENERAL: The patient is propped up in bed, awake, weak appearing. HEENT: Pupils equally round. Pale conjunctivae. Oral cavity dry. No lesions or thrush seen. NECK: Supple. LUNGS: Clear to auscultation. No accessory muscle use. HEART: S1, S2. ABDOMEN: Nondistended, soft, nontender with bowel sounds present. EXTREMITIES: No gross edema or cyanosis. SKIN: Warm to touch. No signs of rash. NEUROLOGIC: Alert, just oriented to time and situation. Left-sided Port-A-Cath without signs of any complications. LABORATORY DATA: Today's WBC 0.8, hemoglobin 11.4, platelets 73,000, segs 12%, lymphocytes 86%. Sodium 154, potassium 4.2, creatinine 3.5, BUN 69, glucose 69, bicarbonate 11. Lactic acid 3.1 from 5.8. Total bilirubin 0.7, AST 19, ALT 28. BNP 9675. Troponin less than 0.017. Albumin 2.3. Urinalysis unremarkable for infection. Chest x-ray per HPI. Abdominal x-ray showed no acute process or bowel obstruction. IMPRESSION: 1. Sepsis with hypotension. 2. Neutropenia. 3. Lactic acidosis. 4. Acute kidney injury, metabolic acidosis and hypernatremia. 5. Dyspnea. 6. Pancytopenia. 7. Metastatic colon cancer, undergoing chemotherapy. 8. Dementia. 9. Hypothyroidism. 10. [facility] resident. PLAN: 1. Continue the meropenem, renally adjusted. 2. Add daptomycin for coverage of Gram-positive organisms. 3. Obtain 2 sets of blood cultures. 4. IV fluids. 5. Monitor laboratory values. 6. Maintain aspiration precautions. 7. Neutropenic precautions. 8. The patient's code status is DNR. 9. Family is considering hospice care. 10. Discussed with nursing and family at bedside. Thank you, Dr. Ahumada, for asking us to participate in this patient's care. Should you have further questions or concerns, please call. The patient is seen and examined and plan of care implemented by Dr. Jefferson Rice. JEFFERSON RICE MD DR: MICHELLE/jose JOB#: [id number] / [id number]
[2020-04-28] MEDS ORDERED: DAPTOMYCIN IV SCH (14:00)
[2020-04-28] MEDS ORDERED: NORMAL SALINE IV SCH (14:00)
[2020-04-28] MEDS ORDERED: MEROPENEM 500 MG in IV NORMAL SALINE 50ML 50 ML IV SCH (14:00)
[2020-04-28] MEDS: FAMOTIDINE 20 MG TABLET. PO SCH (14:16)
[2020-04-28] MEDS: busPIRone 5 MG TABLET. PO SCH ×3 (14:16→22:08)
[2020-04-28] MEDS: PROCHLORPERAZINE 5 MG TABLET. PO SCH ×3 (14:16→22:08)
[2020-04-28] MEDS: ASPIRIN CHEWABLE 81 MG TABLET. PO SCH (14:17)
[2020-04-28] MEDS: DIPHENOXYLATE/ATROPINE TABLET. PO SCH ×2 (14:17→22:08)
[2020-04-28] MEDS: LEVOTHYROXINE 75 MCG TABLET PO SCH (14:17)
[2020-04-28 15:00] VITALS: BP 132/55
--- NOTE | 2020-04-28 18:20 | NUR ---
Hospice: Referral for [facility] sent. Spoke with RICARDO Nathan. Meeting with family and patient set up for Monday 04/30 at 10:00am in patients room. Copy of H&P, labs and medication list sent to Judy .
--- NOTE | 2020-04-28 18:44 | CONS ---
DATE OF CONSULTATION: 04/28/2020 REASON FOR CONSULTATION: Abdominal pain, lactic acidosis, acute renal failure, nausea and vomiting. HISTORY OF PRESENT ILLNESS: This is an 84-year-old female who has past medical history significant for partial small bowel obstruction, status post resection, dementia, hypertension, anxiety, depression, GERD, hypothyroidism, anemia, admitted to [facility] with failure to thrive. Subsequent evaluation did reveal a lactic acidosis, acute renal failure. The patient presently is disoriented to time and place. States that the pain is under reasonable control. Per discussions with the family presently medical measures only, no intubation, no surgery, no endoscopy. PAST MEDICAL HISTORY: Hypothyroidism, dementia, history of small bowel obstruction, status post resection. MEDICATIONS: Presently include meropenem, sodium bicarbonate. ALLERGIES: IODINE. FAMILY AND SOCIAL HISTORY: She does not drink or smoke. REVIEW OF SYSTEMS: Unobtainable due to dementia. PHYSICAL EXAMINATION: VITAL SIGNS: Temperature is 97.8 , pulse 107, respiratory rate 18, blood pressure 65/30, on 4 liters of oxygen. LUNGS: Reveal decreased breath sounds. CARDIOVASCULAR: S1, S2 without S3, S4 or appreciable murmur. ABDOMEN: Hypoactive bowel sounds. Diffuse tenderness without appreciable hepatosplenomegaly with multiple surgical incisions. EXTREMITIES: Reveals no cyanosis or clubbing. LABORATORY STUDIES: Hemoglobin 11.4, hematocrit 34.2, white count ____, platelet count 73,000. Sodium 154, potassium 4.0, chloride 121, bicarbonate 11, BUN 69, creatinine 3.5, glucose is 69. Lactate 5.1, calcium is 8.1, total bilirubin 0.7, AST of 19, ALT of 28, alkaline phosphatase 100. Acute abdominal series reveals no free air on 04/28/2020. IMPRESSION: Abdominal pain with the acidosis, acute renal failure, absolute neutropenia, neutropenic colitis, recurrent ischemic bowel, sepsis in the differential. Prognosis is guarded with neutropenia. We will therefore recommend conservative measures, medical therapy, antibiotics. Prognosis is guarded and suspect imminent in next 24-48 hours. MADY FRANKEL MD DR: MAURICE/jose JOB#: [id number] / [id number]
[2020-04-28 19:00] VITALS: BP 122/67
[2020-04-28] MEDS ORDERED: NON FORMULARY ITEM (Melatonin 1 TAB) PO SCH (21:00)
[2020-04-28] MEDS: LATANOPROST 0.005% OPHTH SOLUTION 2.5ML BOTTLE. OU SCH (22:08)
[2020-04-28 23:45] VITALS: BP 132/64
[2020-04-29] MEDS: IV NORMAL SALINE 1000ML BAG 1,000 ML IV SCH (01:55)
[2020-04-29] MEDS: SODIUM BICARBONATE VIAL 50 MEQ in IV 1/2 NORMAL SALINE 1,000 ML IV SCH ×2 (02:51→14:10)
[2020-04-29 03:15] VITALS: BP 130/60
[2020-04-29] MEDS: LEVOTHYROXINE 75 MCG TABLET PO SCH (05:48)
[2020-04-29 07:00] VITALS: BP 113/59
[2020-04-29] MEDS: busPIRone 5 MG TABLET. PO SCH ×5 (08:56→21:14)
[2020-04-29] MEDS: MULTIVITAMIN with MINERAL TABLET. PO SCH ×2 (08:56→09:00)
[2020-04-29] MEDS: FOLIC ACID 1 MG TABLET. PO SCH ×2 (08:57→09:00)
[2020-04-29] MEDS: FAMOTIDINE 20 MG TABLET. PO SCH ×2 (08:57→09:00)
[2020-04-29] MEDS: ASPIRIN CHEWABLE 81 MG TABLET. PO SCH ×2 (08:57→09:00)
[2020-04-29] MEDS: ASCORBIC ACID 500 MG TABLET PO SCH ×2 (08:57→09:00)
[2020-04-29] MEDS: DIPHENOXYLATE/ATROPINE TABLET. PO SCH ×4 (08:57→21:15)
[2020-04-29] MEDS: PROCHLORPERAZINE 5 MG TABLET. PO SCH ×4 (09:00→21:14)
[2020-04-29] MEDS: MEROPENEM 500 MG in IV NORMAL SALINE 50ML 50 ML IV SCH (09:04)
--- NOTE | 2020-04-29 10:25 | PDOC ---
Infectious Disease Note Subjective Subjective Having some runny stools c/o nausea and mild abdominal cramps No fevers/chills ROS ROS as mentioned above Vital Sign Vital Signs Vital Signs Date Time Temp Pulse Resp B/P (MAP) Pulse Ox O2 Delivery O2 Flow Rate FiO2 04/29/20 07:00 97.6 94 18 113/59 (77) Nasal Cannula 4.0 97.6 04/29/20 03:15 94 Physical Exam PHYSICAL EXAM GENERAL: Lying down, awake, weak appearring HEENT: Pupils equally round. Pale conjunctivae. Oral cavity dr, no lesions or thrush seen. NECK: Supple. LUNGS: Clear to auscultation. No accessory muscle use. HEART: S1, S2. ABDOMEN: Nondistended, soft, nontender with bowel sounds present. : Gu in place EXTREMITIES: No gross edema or cyanosis. SKIN: Warm to touch. No signs of rash. NEUROLOGIC: Alert, disoriented to time and situation. Port-a-cath without signs of complications Objective Assessment Sepsis with hypotension Neutropenia s/p chemotherapy 04/18 per family Lactic acidosis RUFINO, metabolic acidosis and hypernatremia Dyspnea, 5L Pancytopenia Metastatic colon cancer undergoing chemotherapy -Followed by Dr. Pryor at [facility] -Port-a-cath in place Dementia Hypothyroidism alf resident Plan Plan of Care Continue dapto and meropenem, renally adjusted Monitor abx toxicities f/u BC IVFs Today's labs pending Maintain aspiration precautions Neutropenic precautions DNR Family considering hospice care D/w nursing Attending Co-Sign The patient was seen and interviewed as well as examined at the bedside. The chart was reviewed. The case was discussed. Agree with the plan of care. TOMMY CARSON APRN Apr 29, 2020 10:25 KATE RICE MD Apr 29, 2020 11:25
--- NOTE | 2020-04-29 10:55 | NUR ---
Nursing: Patient attempted to take morning medications. Patient then vomited a small amount including pills. Reported nausea. Morning medications non administered.
[2020-04-29 10:56] VITALS: BP 113/59
[2020-04-29 11:06] LABS: BASO % 0 % (0-3); EOS % 6 % (0-3); HEMATOCRIT 30.3 % (36.0-47.0); HEMOGLOBIN 10.6 g/dL (12.0-15.5); LYMPH # 0.3 x10^3/uL (1.0-4.8); LYMPH % 52 % (24-48); MEAN CORPUSCULAR HEMOGLOBIN 36 pg (25-35); MEAN CORPUSCULAR HGB CONC 35 g/dL (31-37); MEAN CORPUSCULAR VOLUME 104 fL (79-100); MONO # 0.2 x10^3/uL (0.0-1.1); MONO % 31 % (0-9); NEUT # 0.1 x10^3/uL (1.8-7.7); NEUT % 10 % (31-73); PLATELET COUNT 59 x10^3/uL (140-400); RED BLOOD COUNT 2.91 x10^6/uL (3.50-5.40); RED CELL DISTRIBUTION WIDTH 23.1 % (11.5-14.5)
[2020-04-29 11:09] LABS: CALCIUM 7.4 mg/dL (8.5-10.1); CREATININE 2.9 mg/dL (0.6-1.0); GFR 15.4; POTASSIUM 3.1 mmol/L (3.5-5.1)
[2020-04-29 11:11] LABS: WHITE BLOOD COUNT 0.5 x10^3/uL (4.0-11.0)
--- NOTE | 2020-04-29 11:47 | PDOC ---
PROGRESS NOTES History of Present Illness History of Present Illness SEPSIS metastatic breast cancer malnutrition, severe protein malnutrition acute on chronic renal failure, vasomotor, cognitive decline, dementia Hx, chronic Small-bowel obstruction secondary to a fibrous adhesion. small bowel segmental resection: - Central segmental hemorrhagic infarction with stricture. - Proximal and distal margins of resection viable. 06/24 kub Grossly unchanged appearance of the abdomen including dilated loops of central small bowel containing dilute enteric contrast. moderate fall risk macrocytic anemia DNR STATUS grave short-term prognosis 04/28 family is here will discuss hospice consult/// palliative measures, PATIENT NOW ALERT, ABLE TO MAKE LIFE DECISIONS, AGREES WITH HOSPICE CONSULT// INTAKE started iv merem ROXANOL 37 min pt exam cc time, chart review, > 50% of time spent with exam, chart review, pt care coordination Vitals Vitals Vital Signs Date Time Temp Pulse Resp B/P (MAP) Pulse Ox O2 Delivery O2 Flow Rate FiO2 04/29/20 10:56 87 18 113/59 (77) 95 Nasal Cannula 4.0 04/29/20 07:00 97.6 97.6 Physical Exam Physical Exam GENERAL: , awake, weak appearring FRAIL HEENT: Pupils equally round. Pale conjunctivae. Oral cavity dr, no lesions or thrush seen. NECK: Supple. LUNGS: Clear to auscultation. No accessory muscle use. HEART: S1, S2. ABDOMEN: Nondistended, soft, nontender with bowel sounds present. : Gu in place EXTREMITIES: No gross edema or cyanosis. SKIN: Warm to touch. No signs of rash. NEUROLOGIC: Alert, disoriented to time and situation. Port-a-cath without signs of complications General: Alert, Cooperative, moderate distress Heart: Regular rate Lungs: Clear Abdomen: Soft Extremities: No cyanosis Labs LABS Laboratory Tests Test 04/29/20 10:30 White Blood Count 0.5 x10^3/uL (4.0-11.0) Red Blood Count 2.91 x10^6/uL (3.50-5.40) Hemoglobin 10.6 g/dL (12.0-15.5) Hematocrit 30.3 % (36.0-47.0) Mean Corpuscular Volume 104 fL (79-100) Mean Corpuscular Hemoglobin 36 pg (25-35) Mean Corpuscular Hemoglobin Concent 35 g/dL (31-37) Red Cell Distribution Width 23.1 % (11.5-14.5) Platelet Count 59 x10^3/uL (140-400) Neutrophils (%) (Auto) 10 % (31-73) Lymphocytes (%) (Auto) 52 % (24-48) Monocytes (%) (Auto) 31 % (0-9) Eosinophils (%) (Auto) 6 % (0-3) Basophils (%) (Auto) 0 % (0-3) Neutrophils # (Auto) 0.1 x10^3/uL (1.8-7.7) Lymphocytes # (Auto) 0.3 x10^3/uL (1.0-4.8) Monocytes # (Auto) 0.2 x10^3/uL (0.0-1.1) Eosinophils # (Auto) 0.0 x10^3/uL (0.0-0.7) Basophils # (Auto) 0.0 x10^3/uL (0.0-0.2) Sodium Level 144 mmol/L (136-145) Potassium Level 3.1 mmol/L (3.5-5.1) Chloride Level 111 mmol/L (98-107) Carbon Dioxide Level 14 mmol/L (21-32) Anion Gap 19 (6-14) Blood Urea Nitrogen 69 mg/dL (7-20) Creatinine 2.9 mg/dL (0.6-1.0) Estimated GFR (Cockcroft-Gault) 15.4 Glucose Level 97 mg/dL (70-99) Calcium Level 7.4 mg/dL (8.5-10.1) Assessment and Plan Assessmemt and Plan Problems Medical Problems: (1) Failure to thrive Status: Acute (2) Hypoxia Status: Acute (3) Shock Status: Acute Comment Review of Relevant I have reviewed the following items lola (where applicable) has been applied. Labs Laboratory Tests Test 04/27/20 13:32 04/27/20 15:22 04/28/20 06:34 04/28/20 09:00 O2 Saturation 98 % (92-99) Arterial Blood pH 7.29 (7.35-7.45) Arterial Blood pCO2 at Patient Temp 19 mmHg (35-46) Arterial Blood pO2 at Patient Temp 284 mmHg (65-108) Arterial Blood HCO3 9 mmol/L (21-28) Arterial Blood Base Excess -16 mmol/L (-3-3) FiO2 100 Lactic Acid Level 5.8 mmol/L (0.4-2.0) White Blood Count 0.8 x10^3/uL (4.0-11.0) Red Blood Count 3.18 x10^6/uL (3.50-5.40) Hemoglobin 11.4 g/dL (12.0-15.5) Hematocrit 34.2 % (36.0-47.0) Mean Corpuscular Volume 107 fL (79-100) Mean Corpuscular Hemoglobin 36 pg (25-35) Mean Corpuscular Hemoglobin Concent 33 g/dL (31-37) Red Cell Distribution Width 23.3 % (11.5-14.5) Platelet Count 73 x10^3/uL (140-400) Neutrophils (%) (Auto) 14 % (31-73) Lymphocytes (%) (Auto) 80 % (24-48) Monocytes (%) (Auto) 2 % (0-9) Eosinophils (%) (Auto) 4 % (0-3) Basophils (%) (Auto) 0 % (0-3) Neutrophils # (Auto) 0.1 x10^3/uL (1.8-7.7) Lymphocytes # (Auto) 0.6 x10^3/uL (1.0-4.8) Monocytes # (Auto) 0.0 x10^3/uL (0.0-1.1) Eosinophils # (Auto) 0.0 x10^3/uL (0.0-0.7) Basophils # (Auto) 0.0 x10^3/uL (0.0-0.2) Segmented Neutrophils % 12 % (35-66) Lymphocytes % 86 % (24-48) Monocytes % 1 % (0-10) Eosinophils % 1 % (0-5) Nucleated Red Blood Cells 1 Platelet Estimate Decreased (ADEQUATE) Anisocytosis Slight Macrocytosis Slight Urine Collection Type Unknown Urine Color Elissa Urine Clarity Cloudy Urine pH 5.5 (<5.0-8.0) Urine Specific Oden 1.025 (1.000-1.030) Urine Protein 100 mg/dL (NEG-TRACE) Urine Glucose (UA) Negative mg/dL (NEG) Urine Ketones (Stick) Negative mg/dL (NEG) Urine Blood Small (NEG) Urine Nitrite Negative (NEG) Urine Bilirubin Small (NEG) Urine Urobilinogen Dipstick 0.2 mg/dL (0.2 mg/dL) Urine Leukocyte Esterase Negative (NEG) Urine RBC 3-5 /HPF (0-2) Urine WBC 1-4 /HPF (0-4) Urine Squamous Epithelial Cells Few /LPF Urine Amorphous Sediment Present /HPF Urine Bacteria Few /HPF (0-FEW) Urine Hyaline Casts Many /HPF Urine Granular Casts Few /HPF Urine Mucus Slight /LPF Test 04/28/20 09:34 04/29/20 10:30 Sodium Level 154 mmol/L (136-145) 144 mmol/L (136-145) Potassium Level 4.2 mmol/L (3.5-5.1) 3.1 mmol/L (3.5-5.1) Chloride Level 121 mmol/L (98-107) 111 mmol/L (98-107) Carbon Dioxide Level 11 mmol/L (21-32) 14 mmol/L (21-32) Anion Gap 22 (6-14) 19 (6-14) Blood Urea Nitrogen 69 mg/dL (7-20) 69 mg/dL (7-20) Creatinine 3.5 mg/dL (0.6-1.0) 2.9 mg/dL (0.6-1.0) Estimated GFR (Cockcroft-Gault) 12.4 15.4 BUN/Creatinine Ratio 20 (6-20) Glucose Level 69 mg/dL (70-99) 97 mg/dL (70-99) Lactic Acid Level 3.1 mmol/L (0.4-2.0) Calcium Level 8.1 mg/dL (8.5-10.1) 7.4 mg/dL (8.5-10.1) Total Bilirubin 0.7 mg/dL (0.2-1.0) Aspartate Amino Transf (AST/SGOT) 19 U/L (15-37) Alanine Aminotransferase (ALT/SGPT) 28 U/L (14-59) Alkaline Phosphatase 100 U/L (46-116) Troponin I Quantitative < 0.017 ng/mL (0.000-0.055) [id number]-Type Natriuretic Peptide 9675 pg/mL (0-449) Total Protein 4.9 g/dL (6.4-8.2) Albumin 2.3 g/dL (3.4-5.0) Albumin/Globulin Ratio 0.9 (1.0-1.7) White Blood Count 0.5 x10^3/uL (4.0-11.0) Red Blood Count 2.91 x10^6/uL (3.50-5.40) Hemoglobin 10.6 g/dL (12.0-15.5) Hematocrit 30.3 % (36.0-47.0) Mean Corpuscular Volume 104 fL (79-100) Mean Corpuscular Hemoglobin 36 pg (25-35) Mean Corpuscular Hemoglobin Concent 35 g/dL (31-37) Red Cell Distribution Width 23.1 % (11.5-14.5) Platelet Count 59 x10^3/uL (140-400) Neutrophils (%) (Auto) 10 % (31-73) Lymphocytes (%) (Auto) 52 % (24-48) Monocytes (%) (Auto) 31 % (0-9) Eosinophils (%) (Auto) 6 % (0-3) Basophils (%) (Auto) 0 % (0-3) Neutrophils # (Auto) 0.1 x10^3/uL (1.8-7.7) Lymphocytes # (Auto) 0.3 x10^3/uL (1.0-4.8) Monocytes # (Auto) 0.2 x10^3/uL (0.0-1.1) Eosinophils # (Auto) 0.0 x10^3/uL (0.0-0.7) Basophils # (Auto) 0.0 x10^3/uL (0.0-0.2) Laboratory Tests Test 04/29/20 10:30 White Blood Count 0.5 x10^3/uL (4.0-11.0) Red Blood Count 2.91 x10^6/uL (3.50-5.40) Hemoglobin 10.6 g/dL (12.0-15.5) Hematocrit 30.3 % (36.0-47.0) Mean Corpuscular Volume 104 fL (79-100) Mean Corpuscular Hemoglobin 36 pg (25-35) Mean Corpuscular Hemoglobin Concent 35 g/dL (31-37) Red Cell Distribution Width 23.1 % (11.5-14.5) Platelet Count 59 x10^3/uL (140-400) Neutrophils (%) (Auto) 10 % (31-73) Lymphocytes (%) (Auto) 52 % (24-48) Monocytes (%) (Auto) 31 % (0-9) Eosinophils (%) (Auto) 6 % (0-3) Basophils (%) (Auto) 0 % (0-3) Neutrophils # (Auto) 0.1 x10^3/uL (1.8-7.7) Lymphocytes # (Auto) 0.3 x10^3/uL (1.0-4.8) Monocytes # (Auto) 0.2 x10^3/uL (0.0-1.1) Eosinophils # (Auto) 0.0 x10^3/uL (0.0-0.7) Basophils # (Auto) 0.0 x10^3/uL (0.0-0.2) Sodium Level 144 mmol/L (136-145) Potassium Level 3.1 mmol/L (3.5-5.1) Chloride Level 111 mmol/L (98-107) Carbon Dioxide Level 14 mmol/L (21-32) Anion Gap 19 (6-14) Blood Urea Nitrogen 69 mg/dL (7-20) Creatinine 2.9 mg/dL (0.6-1.0) Estimated GFR (Cockcroft-Gault) 15.4 Glucose Level 97 mg/dL (70-99) Calcium Level 7.4 mg/dL (8.5-10.1) Medications Current Medications Sodium Chloride 1,000 ml @ 0 mls/hr 1X ONCE IV Last administered on 04/27/20at 12:38; Start 04/27/20 at 12:00; Stop 04/27/20 at 12:07; Status DC Ceftriaxone Sodium (Rocephin) 1 gm 1X ONCE IVP Last administered on 04/27/20at 12:39; Start 04/27/20 at 12:00; Stop 04/27/20 at 12:07; Status DC Fentanyl Citrate (Fentanyl 2ml Vial) 50 mcg 1X ONCE IVP Last administered on 04/27/20at 12:39; Start 04/27/20 at 12:00; Stop 04/27/20 at 12:07; Status DC Alteplase, Recombinant (Cathflo For Central Catheter Clearance) 1 mg 1X ONCE INT CAT Last administered on 04/27/20at 13:37; Start 04/27/20 at 13:15; Stop 04/27/20 at 13:16; Status DC Norepinephrine Bitartrate 8 mg/ Dextrose 258 ml @ 11.61 mls/ hr 1X ONCE IV Last administered on 04/27/20at 13:52; Start 04/27/20 at 14:00; Stop 04/28/20 at 12:13; Status DC Morphine Sulfate (Morphine Sulfate) 5 mg 1X ONCE IV Last administered on 04/27/20at 16:54; Start 04/27/20 at 16:15; Stop 04/27/20 at 16:16; Status DC Sodium Chloride 1,000 ml @ 0 mls/hr 1X ONCE IV Last administered on 04/27/20at 18:30; Start 04/27/20 at 18:00; Stop 04/27/20 at 18:01; Status DC Ondansetron HCl (Zofran) 4 mg PRN Q6HRS PRN IVP NAUSEA/VOMITING Last administered on 04/29/20at 09:18; Start 04/28/20 at 09:15 Sodium Chloride 1,000 ml @ 60 mls/hr [id number] IV ; Start 04/28/20 at 09:15; Stop 04/29/20 at 07:58; Status DC Ceftriaxone Sodium (Rocephin) 1 gm Q24H IVP ; Start 04/28/20 at 10:00; Stop 04/28/20 at 09:56; Status DC Meropenem 500 mg/ Sodium Chloride 50 ml @ 100 mls/hr Q8HRS IV ; Start 04/28/20 at 14:00; Status UNV Meropenem 1 gm/ Sodium Chloride 100 ml @ 200 mls/hr Q12HR IV Last administered on 04/28/20at 10:40; Start 04/28/20 at 10:00; Stop 04/28/20 at 11:25; Status DC Sodium Bicarbonate 50 meq/Sodium Chloride 1,050 ml @ 80 mls/hr Q13H8M IV Last administered on 04/29/20at 02:51; Start 04/28/20 at 11:00 Bumetanide (Bumex) 1 mg [id number] IV ; Start 04/28/20 at 11:15; Status UNV Meropenem 500 mg/ Sodium Chloride 50 ml @ 100 mls/hr DAILY IV Last administered on 04/29/20at 09:04; Start 04/29/20 at 09:00 Daptomycin 250 mg/ Sodium Chloride 50 ml @ 100 mls/hr Q48H IV Last administered on 04/28/20 14:17; Start 04/28/20 at 14:00 Aspirin (Aspirin Chewable) 81 mg DAILY PO Last administered on 04/28/20 14:17; Start 04/28/20 at 13:00 Buspirone HCl (Buspar) 5 mg QID PO Last administered on 04/28/20 22:08; Start 04/28/20 at 13:00 Diphenoxylate HCl/ Atropine (Lomotil) 1 tab TID PO Last administered on 22:08; Start 04/28/20 at 14:00 Famotidine (Pepcid) 20 mg DAILY PO Last administered on 04/28/20at 14:16; Start 04/28/20 at 13:00 Folic Acid (Folic Acid) 1 mg DAILY PO ; Start 04/28/20 at 13:00 Latanoprost (Xalatan) 1 drop QHS OU Last administered on 04/28/20at 22:08; Start 04/28/20 at 21:00 Levothyroxine Sodium (Synthroid) 75 mcg DAILY06 PO Last administered on 04/29/20at 05:48; Start 04/28/20 at 13:00 Lorazepam (Ativan) 0.5 mg Q4HRS PRN PO ANXIETY / AGITATION; Start 04/28/20 at 13:00 Multivitamins (Thera M Plus) 1 tab DAILY PO ; Start 04/28/20 at 13:00 Ascorbic Acid (Vitamin C) 500 mg DAILY PO ; Start 04/28/20 at 13:00 Non-Formulary Medication (Melatonin ) 1 tab QHS PO ; Start 04/28/20 at 21:00; Status UNV Ondansetron HCl (Zofran Odt) 4 mg PRN Q8HRS PRN PO NAUSEA/VOMITING; Start 04/28/20 at 13:00 Prochlorperazine Maleate (Compazine) 10 mg QID PO Last administered on 6/2 0/20at 22:08; Start 04/28/20 at 13:00 Morphine Sulfate (Roxanol Conc) 5 mg PRN Q3HRS PRN SL PAIN; Start 04/28/20 at 13:00 Potassium Chloride/Water 100 ml @ 100 mls/hr Q1H IV ; Start 04/29/20 at 11:45; Stop 04/29/20 at 12:44; Status UNV Active Scripts Active Thera-M Tablet (Multivits,Ca,Minerals/Iron/Fa) 1 Each Tablet 1 Tab PO DAILY 30 Days Folic Acid 1 Mg Tablet 1 Mg PO DAILY 30 Days Reported Compazine (Prochlorperazine Maleate) 10 Mg Tablet 1 Tab PO Q6HRS 30 Days Melatonin 3 Mg Tab.rapdis 1 Tab PO QHS 30 Days Loperamide (Loperamide Hcl) 2 Mg Tablet 1 Tab PO Q4HRS 30 Days Lomotil Tablet (Diphenoxylate Hcl/Atropine) 1 Each Tablet 1 Tab PO TID Buspirone Hcl 5 Mg Tablet 1 Tab PO QID Vitamin C (Ascorbic Acid) 500 Mg Capsule.er 1 Cap PO DAILY 30 Days Aspirin 81 Mg Tab.chew 1 Tab PO DAILY Potassium Chloride (Potassium Chloride) 10 Meq Tab.sr.24h 10 Meq PO DAILY Namenda (Memantine Hcl) 10 Mg Tablet 10 Mg PO BID Zofran (Ondansetron Hcl) 4 Mg Tablet 1 Tab PO PRN Q6-8HRS Acetaminophen 325 Mg Tablet 325 Mg PO Q4HRS Donepezil Hcl 10 Mg Tablet 1 Tab PO DAILY Levothyroxine Sodium 50 Mcg Tablet 75 Mcg PO DAILYAC Xalatan (Latanoprost) 2.5 Ml Drops 1 Drop EACHEYE QHS Pepcid (Famotidine) 20 Mg Tablet 20 Mg PO DAILY Ativan (Lorazepam) 0.5 Mg Tablet 0.5 Mg PO Q4HRS PRN Vitals/I & O Vital Sign - Last 24 Hours 04/28/20 04/28/20 04/28/20 04/28/20 15:00 19:00 20:00 23:45 Temp 97.3 97.3 97.5 97.3 97.3 97.5 Pulse 97 96 95 Resp 18 18 18 B/P (MAP) 132/55 (80) 122/67 (85) 132/64 (86) Pulse Ox 96 95 96 O2 Delivery Nasal Cannula Nasal Cannula Nasal Cannula Nasal Cannula O2 Flow Rate 4.0 4.0 4.0 4.0 04/29/20 04/29/20 04/29/20 04/29/20 03:15 07:00 08:00 10:56 Temp 97.4 97.6 97.4 97.6 Pulse 85 94 87 Resp 18 18 18 B/P (MAP) 130/60 (83) 113/59 (77) 113/59 (77) Pulse Ox 94 95 O2 Delivery Nasal Cannula Nasal Cannula Nasal Cannula Nasal Cannula O2 Flow Rate 4.0 4.0 4.0 4.0 Intake and Output 04/28/20 04/28/20 04/29/20 15:00 23:00 07:00 Intake Total 145 ml 170 ml Output Total 100 ml Balance 45 ml 170 ml MEHDI WARD MD Apr 29, 2020 11:47
[2020-04-29] MEDS ORDERED: POTASSIUM CHLORIDE 10MEQ 100 ML IV SCH (12:00)
--- NOTE | 2020-04-29 12:05 | PDOC ---
SUBJECTIVE ROS Pt c/o nausea and vomiting , Unable to take any meds Diarrhea+ OBJECTIVE Vital Signs Vital Signs Date Time Temp Pulse Resp B/P (MAP) Pulse Ox O2 Delivery O2 Flow Rate FiO2 04/29/20 10:56 87 18 113/59 (77) 95 Nasal Cannula 4.0 04/29/20 07:00 97.6 97.6 I & 0 Intake and Output 04/29/20 07:00 Intake Total 315 ml Output Total 100 ml Balance 215 ml Intake Oral 315 ml Output Urine Total 100 ml # Bowel Movements 7 PHYSICAL EXAM Physical Exam GENERAL: sleeping, appears very weak, NAD HEENT: OM dry NECK: Supple LUNGS: Clear to auscultation, decreased at bases, Non labored HEART: RRR, S1, S2 present. ABDOMEN: Soft, nontender. EXTREMITIES: No edema. NEUROLOGIC: dementia Dx SKIN: No ulcerations or rashes hinojosa + DIAGNOSIS/ASSESSMENT Assessment & Plan RUFINO - Vasomotor/Sepsis/Hypotension , s/p Chemo last week, r/o urinary retention Renal function improving IVF, Supportive care, Strict I/O , Avoid nephrotoxins Metabolic acidosis-Continue IVF with Bicarb CKD 2 - Lt renal atrophy US 2019 RUFINO in Jun 2019, resolved Sepsis with Hypotension- Levaphed in ER HyperNatremia- sec to Dehydration, resolved , Monitor Metastatic colon cancer- po ?Gemcitabine per [facility] records- duration not clear from the reocrds (Renal failure known side effect) -Followed by Dr. Pryor at [facility] Malnutrition, severe protein malnutrition Hx of dementia - Cognitive decline Neutropenia s/p chemotherapy 04/18 per family Thrombocytopenia Small-bowel obstruction secondary to a fibrous adhesion, small bowel segmental resection: Lactic acidosis Family considering hospice care- meeting tomorrow COMMENT/RELEVANT DATA Meds Current Medications Medications (Trade) Dose Ordered Sig/Marilee Start Time Stop Time Status Last Admin Dose Admin Alteplase, Recombinant (Cathflo For Central Catheter Clearance) 1 mg 1X ONCE 04/27/20 13:15 04/27/20 13:16 DC 04/27/20 13:37 1 MG Ascorbic Acid (Vitamin C) 500 mg DAILY 04/28/20 13:00 Aspirin (Aspirin Chewable) 81 mg DAILY 04/28/20 13:00 04/28/20 14:17 81 MG Bumetanide (Bumex) 1 mg [id number] 04/28/20 11:15 UNV Buspirone HCl (Buspar) 5 mg QID 04/28/20 13:00 04/28/20 22:08 5 MG Ceftriaxone Sodium (Rocephin) 1 gm Q24H 04/28/20 10:00 04/28/20 09:56 DC Daptomycin 250 mg/ Sodium Chloride 50 ml @ 100 mls/hr Q48H 04/28/20 14:00 04/28/20 14:17 100 MLS/HR Diphenoxylate HCl/ Atropine (Lomotil) 1 tab TID 04/28/20 14:00 04/28/20 22:08 1 TAB Famotidine (Pepcid) 20 mg DAILY 04/28/20 13:00 04/28/20 14:16 20 MG Fentanyl Citrate (Fentanyl 2ml Vial) 50 mcg 1X ONCE 04/27/20 12:00 04/27/20 12:07 DC 04/27/20 12:39 50 MCG Folic Acid (Folic Acid) 1 mg DAILY 04/28/20 13:00 Latanoprost (Xalatan) 1 drop QHS 04/28/20 21:00 04/28/20 22:08 1 DROP Levothyroxine Sodium (Synthroid) 75 mcg DAILY06 04/28/20 13:00 04/29/20 05:48 75 MCG Lorazepam (Ativan) 0.5 mg Q4HRS PRN 04/28/20 13:00 Meropenem 1 gm/ Sodium Chloride 100 ml @ 200 mls/hr Q12HR 04/28/20 10:00 04/28/20 11:25 DC 04/28/20 10:40 200 MLS/HR Meropenem 500 mg/ Sodium Chloride 50 ml @ 100 mls/hr DAILY 04/29/20 09:00 04/29/20 09:04 100 MLS/HR Morphine Sulfate (Morphine Sulfate) 5 mg 1X ONCE 04/27/20 16:15 04/27/20 16:16 DC 04/27/20 16:54 5 MG Morphine Sulfate (Roxanol Conc) 5 mg PRN Q3HRS PRN 04/28/20 13:00 Multivitamins (Thera M Plus) 1 tab DAILY 04/28/20 13:00 Non-Formulary Medication (Melatonin ) 1 tab QHS 04/28/20 21:00 UNV Norepinephrine Bitartrate 8 mg/ Dextrose 258 ml @ 11.61 mls/ hr 1X ONCE 04/27/20 14:00 04/28/20 12:13 DC 04/27/20 13:52 11.61 MLS/HR Ondansetron HCl (Zofran Odt) 4 mg PRN Q8HRS PRN 04/28/20 13:00 Ondansetron HCl (Zofran) 4 mg PRN Q6HRS PRN 04/28/20 09:15 04/29/20 09:18 4 MG Potassium Chloride/Water 100 ml @ 100 mls/hr Q1H 04/29/20 12:00 04/29/20 12:59 Prochlorperazine Maleate (Compazine) 10 mg QID 04/28/20 13:00 04/28/20 22:08 10 MG Sodium Bicarbonate 50 meq/Sodium Chloride 1,050 ml @ 80 mls/hr Q13H8M 04/28/20 11:00 04/29/20 02:51 80 MLS/HR Sodium Chloride 1,000 ml @ 60 mls/hr [id number] 04/28/20 09:15 04/29/20 07:58 DC Lab Laboratory Tests Test 04/29/20 10:30 White Blood Count 0.5 x10^3/uL (4.0-11.0) Red Blood Count 2.91 x10^6/uL (3.50-5.40) Hemoglobin 10.6 g/dL (12.0-15.5) Hematocrit 30.3 % (36.0-47.0) Mean Corpuscular Volume 104 fL (79-100) Mean Corpuscular Hemoglobin 36 pg (25-35) Mean Corpuscular Hemoglobin Concent 35 g/dL (31-37) Red Cell Distribution Width 23.1 % (11.5-14.5) Platelet Count 59 x10^3/uL (140-400) Neutrophils (%) (Auto) 10 % (31-73) Lymphocytes (%) (Auto) 52 % (24-48) Monocytes (%) (Auto) 31 % (0-9) Eosinophils (%) (Auto) 6 % (0-3) Basophils (%) (Auto) 0 % (0-3) Neutrophils # (Auto) 0.1 x10^3/uL (1.8-7.7) Lymphocytes # (Auto) 0.3 x10^3/uL (1.0-4.8) Monocytes # (Auto) 0.2 x10^3/uL (0.0-1.1) Eosinophils # (Auto) 0.0 x10^3/uL (0.0-0.7) Basophils # (Auto) 0.0 x10^3/uL (0.0-0.2) Sodium Level 144 mmol/L (136-145) Potassium Level 3.1 mmol/L (3.5-5.1) Chloride Level 111 mmol/L (98-107) Carbon Dioxide Level 14 mmol/L (21-32) Anion Gap 19 (6-14) Blood Urea Nitrogen 69 mg/dL (7-20) Creatinine 2.9 mg/dL (0.6-1.0) Estimated GFR (Cockcroft-Gault) 15.4 Glucose Level 97 mg/dL (70-99) Calcium Level 7.4 mg/dL (8.5-10.1) Results All relevant outside records, renal labs, imaging studies, telemetry/EKG's were reviewed. Justicifation of Admission Dx: Justifications for Admission: Justification of Admission Dx: N/A MEKHI SARKAR MD Apr 29, 2020 12:05
[2020-04-29 15:00] VITALS: BP 94/47
--- NOTE | 2020-04-29 15:09 | PDOC ---
G I PROGRESS NOTE Reason for Follow-up Abd pain/wt loss Subjective No new complaints Physical Exam Lungs decreased BS CV S1 S2 ABD +BS, soft, nontender Review of Relevant I have reviewed the following items lola (where applicable) has been applied. Labs Laboratory Tests Test 04/27/20 15:22 04/28/20 06:34 04/28/20 09:00 04/28/20 09:34 Lactic Acid Level 5.8 mmol/L (0.4-2.0) 3.1 mmol/L (0.4-2.0) White Blood Count 0.8 x10^3/uL (4.0-11.0) Red Blood Count 3.18 x10^6/uL (3.50-5.40) Hemoglobin 11.4 g/dL (12.0-15.5) Hematocrit 34.2 % (36.0-47.0) Mean Corpuscular Volume 107 fL (79-100) Mean Corpuscular Hemoglobin 36 pg (25-35) Mean Corpuscular Hemoglobin Concent 33 g/dL (31-37) Red Cell Distribution Width 23.3 % (11.5-14.5) Platelet Count 73 x10^3/uL (140-400) Neutrophils (%) (Auto) 14 % (31-73) Lymphocytes (%) (Auto) 80 % (24-48) Monocytes (%) (Auto) 2 % (0-9) Eosinophils (%) (Auto) 4 % (0-3) Basophils (%) (Auto) 0 % (0-3) Neutrophils # (Auto) 0.1 x10^3/uL (1.8-7.7) Lymphocytes # (Auto) 0.6 x10^3/uL (1.0-4.8) Monocytes # (Auto) 0.0 x10^3/uL (0.0-1.1) Eosinophils # (Auto) 0.0 x10^3/uL (0.0-0.7) Basophils # (Auto) 0.0 x10^3/uL (0.0-0.2) Segmented Neutrophils % 12 % (35-66) Lymphocytes % 86 % (24-48) Monocytes % 1 % (0-10) Eosinophils % 1 % (0-5) Nucleated Red Blood Cells 1 Platelet Estimate Decreased (ADEQUATE) Anisocytosis Slight Macrocytosis Slight Urine Collection Type Unknown Urine Color Elissa Urine Clarity Cloudy Urine pH 5.5 (<5.0-8.0) Urine Specific [place] 1.025 (1.000-1.030) Urine Protein 100 mg/dL (NEG-TRACE) Urine Glucose (UA) Negative mg/dL (NEG) Urine Ketones (Stick) Negative mg/dL (NEG) Urine Blood Small (NEG) Urine Nitrite Negative (NEG) Urine Bilirubin Small (NEG) Urine Urobilinogen Dipstick 0.2 mg/dL (0.2 mg/dL) Urine Leukocyte Esterase Negative (NEG) Urine RBC 3-5 /HPF (0-2) Urine WBC 1-4 /HPF (0-4) Urine Squamous Epithelial Cells Few /LPF Urine Amorphous Sediment Present /HPF Urine Bacteria Few /HPF (0-FEW) Urine Hyaline Casts Many /HPF Urine Granular Casts Few /HPF Urine Mucus Slight /LPF Sodium Level 154 mmol/L (136-145) Potassium Level 4.2 mmol/L (3.5-5.1) Chloride Level 121 mmol/L (98-107) Carbon Dioxide Level 11 mmol/L (21-32) Anion Gap 22 (6-14) Blood Urea Nitrogen 69 mg/dL (7-20) Creatinine 3.5 mg/dL (0.6-1.0) Estimated GFR (Cockcroft-Gault) 12.4 BUN/Creatinine Ratio 20 (6-20) Glucose Level 69 mg/dL (70-99) Calcium Level 8.1 mg/dL (8.5-10.1) Total Bilirubin 0.7 mg/dL (0.2-1.0) Aspartate Amino Transf (AST/SGOT) 19 U/L (15-37) Alanine Aminotransferase (ALT/SGPT) 28 U/L (14-59) Alkaline Phosphatase 100 U/L (46-116) Troponin I Quantitative < 0.017 ng/mL (0.000-0.055) [id number] Natriuretic Peptide 9675 pg/mL (0-449) Total Protein 4.9 g/dL (6.4-8.2) Albumin 2.3 g/dL (3.4-5.0) Albumin/Globulin Ratio 0.9 (1.0-1.7) Test 04/29/20 10:30 White Blood Count 0.5 x10^3/uL (4.0-11.0) Red Blood Count 2.91 x10^6/uL (3.50-5.40) Hemoglobin 10.6 g/dL (12.0-15.5) Hematocrit 30.3 % (36.0-47.0) Mean Corpuscular Volume 104 fL (79-100) Mean Corpuscular Hemoglobin 36 pg (25-35) Mean Corpuscular Hemoglobin Concent 35 g/dL (31-37) Red Cell Distribution Width 23.1 % (11.5-14.5) Platelet Count 59 x10^3/uL (140-400) Neutrophils (%) (Auto) 10 % (31-73) Lymphocytes (%) (Auto) 52 % (24-48) Monocytes (%) (Auto) 31 % (0-9) Eosinophils (%) (Auto) 6 % (0-3) Basophils (%) (Auto) 0 % (0-3) Neutrophils # (Auto) 0.1 x10^3/uL (1.8-7.7) Lymphocytes # (Auto) 0.3 x10^3/uL (1.0-4.8) Monocytes # (Auto) 0.2 x10^3/uL (0.0-1.1) Eosinophils # (Auto) 0.0 x10^3/uL (0.0-0.7) Basophils # (Auto) 0.0 x10^3/uL (0.0-0.2) Sodium Level 144 mmol/L (136-145) Potassium Level 3.1 mmol/L (3.5-5.1) Chloride Level 111 mmol/L (98-107) Carbon Dioxide Level 14 mmol/L (21-32) Anion Gap 19 (6-14) Blood Urea Nitrogen 69 mg/dL (7-20) Creatinine 2.9 mg/dL (0.6-1.0) Estimated GFR (Cockcroft-Gault) 15.4 Glucose Level 97 mg/dL (70-99) Calcium Level 7.4 mg/dL (8.5-10.1) Laboratory Tests Test 04/29/20 10:30 White Blood Count 0.5 x10^3/uL (4.0-11.0) Red Blood Count 2.91 x10^6/uL (3.50-5.40) Hemoglobin 10.6 g/dL (12.0-15.5) Hematocrit 30.3 % (36.0-47.0) Mean Corpuscular Volume 104 fL (79-100) Mean Corpuscular Hemoglobin 36 pg (25-35) Mean Corpuscular Hemoglobin Concent 35 g/dL (31-37) Red Cell Distribution Width 23.1 % (11.5-14.5) Platelet Count 59 x10^3/uL (140-400) Neutrophils (%) (Auto) 10 % (31-73) Lymphocytes (%) (Auto) 52 % (24-48) Monocytes (%) (Auto) 31 % (0-9) Eosinophils (%) (Auto) 6 % (0-3) Basophils (%) (Auto) 0 % (0-3) Neutrophils # (Auto) 0.1 x10^3/uL (1.8-7.7) Lymphocytes # (Auto) 0.3 x10^3/uL (1.0-4.8) Monocytes # (Auto) 0.2 x10^3/uL (0.0-1.1) Eosinophils # (Auto) 0.0 x10^3/uL (0.0-0.7) Basophils # (Auto) 0.0 x10^3/uL (0.0-0.2) Sodium Level 144 mmol/L (136-145) Potassium Level 3.1 mmol/L (3.5-5.1) Chloride Level 111 mmol/L (98-107) Carbon Dioxide Level 14 mmol/L (21-32) Anion Gap 19 (6-14) Blood Urea Nitrogen 69 mg/dL (7-20) Creatinine 2.9 mg/dL (0.6-1.0) Estimated GFR (Cockcroft-Gault) 15.4 Glucose Level 97 mg/dL (70-99) Calcium Level 7.4 mg/dL (8.5-10.1) Microbiology 04/28/20 Blood Culture - Preliminary, Resulted NO GROWTH AFTER 1 DAY Medications Current Medications Sodium Chloride 1,000 ml @ 0 mls/hr 1X ONCE IV Last administered on 04/27/20at 12:38; Start 04/27/20 at 12:00; Stop 04/27/20 at 12:07; Status DC Ceftriaxone Sodium (Rocephin) 1 gm 1X ONCE IVP Last administered on 04/27/20at 12:39; Start 04/27/20 at 12:00; Stop 04/27/20 at 12:07; Status DC Fentanyl Citrate (Fentanyl 2ml Vial) 50 mcg 1X ONCE IVP Last administered on 04/27/20at 12:39; Start 04/27/20 at 12:00; Stop 04/27/20 at 12:07; Status DC Alteplase, Recombinant (Cathflo For Central Catheter Clearance) 1 mg 1X ONCE INT CAT Last administered on 04/27/20at 13:37; Start 04/27/20 at 13:15; Stop 04/27/20 at 13:16; Status DC Norepinephrine Bitartrate 8 mg/ Dextrose 258 ml @ 11.61 mls/ hr 1X ONCE IV Last administered on 04/27/20at 13:52; Start 04/27/20 at 14:00; Stop 04/28/20 at 12:13; Status DC Morphine Sulfate (Morphine Sulfate) 5 mg 1X ONCE IV Last administered on 04/27/20at 16:54; Start 04/27/20 at 16:15; Stop 04/27/20 at 16:16; Status DC Sodium Chloride 1,000 ml @ 0 mls/hr 1X ONCE IV Last administered on 04/27/20at 18:30; Start 04/27/20 at 18:00; Stop 04/27/20 at 18:01; Status DC Ondansetron HCl (Zofran) 4 mg PRN Q6HRS PRN IVP NAUSEA/VOMITING Last administered on 04/29/20at 09:18; Start 04/28/20 at 09:15 Sodium Chloride 1,000 ml @ 60 mls/hr [id number] IV ; Start 04/28/20 at 09:15; Stop 04/29/20 at 07:58; Status DC Ceftriaxone Sodium (Rocephin) 1 gm Q24H IVP ; Start 04/28/20 at 10:00; Stop 04/28/20 at 09:56; Status DC Meropenem 500 mg/ Sodium Chloride 50 ml @ 100 mls/hr Q8HRS IV ; Start 04/28/20 at 14:00; Status UNV Meropenem 1 gm/ Sodium Chloride 100 ml @ 200 mls/hr Q12HR IV Last administered on 04/28/20at 10:40; Start 04/28/20 at 10:00; Stop 04/28/20 at 11:25; Status DC Sodium Bicarbonate 50 meq/Sodium Chloride 1,050 ml @ 80 mls/hr Q13H8M IV Last administered on 04/29/20at 14:10; Start 04/28/20 at 11:00 Bumetanide (Bumex) 1 mg [id number] IV ; Start 04/28/20 at 11:15; Status UNV Meropenem 500 mg/ Sodium Chloride 50 ml @ 100 mls/hr DAILY IV Last administered on 04/29/20at 09:04; Start 04/29/20 at 09:00 Daptomycin 250 mg/ Sodium Chloride 50 ml @ 100 mls/hr Q48H IV Last administered on 04/28/20at 14:17; Start 04/28/20 at 14:00 Aspirin (Aspirin Chewable) 81 mg DAILY PO Last administered on 04/28/20at 14:17; Start 04/28/20 at 13:00 Buspirone HCl (Buspar) 5 mg QID PO Last administered on 04/28/20at 22:08; Start 04/28/20 at 13:00 Diphenoxylate HCl/ Atropine (Lomotil) 1 tab TID PO Last administered on 04/28/20at 22:08; Start 04/28/20 at 14:00 Famotidine (Pepcid) 20 mg DAILY PO Last administered on 04/28/20at 14:16; Start 04/28/20 at 13:00 Folic Acid (Folic Acid) 1 mg DAILY PO ; Start 04/28/20 at 13:00 Latanoprost (Xalatan) 1 drop QHS OU Last administered on 04/28/20at 22:08; Start 04/28/20 at 21:00 Levothyroxine Sodium (Synthroid) 75 mcg DAILY06 PO Last administered on 04/29/20at 05:48; Start 04/28/20 at 13:00 Lorazepam (Ativan) 0.5 mg Q4HRS PRN PO ANXIETY / AGITATION; Start 04/28/20 at 13:00 Multivitamins (Thera M Plus) 1 tab DAILY PO ; Start 04/28/20 at 13:00 Ascorbic Acid (Vitamin C) 500 mg DAILY PO ; Start 04/28/20 at 13:00 Non-Formulary Medication (Melatonin ) 1 tab QHS PO ; Start 04/28/20 at 21:00; Status UNV Ondansetron HCl (Zofran Odt) 4 mg PRN Q8HRS PRN PO NAUSEA/VOMITING; Start 04/28/20 at 13:00 Prochlorperazine Maleate (Compazine) 10 mg QID PO Last administered on 04/29/20at 12:31; Start 04/28/20 at 13:00 Morphine Sulfate (Roxanol Conc) 5 mg PRN Q3HRS PRN SL PAIN; Start 04/28/20 at 13:00 Potassium Chloride/Water 100 ml @ 100 mls/hr Q1H IV Last administered on 04/29/20at 12:12; Start 04/29/20 at 12:00; Stop 04/29/20 at 12:59; Status DC Active Scripts Active Thera-M Tablet (Multivits,Ca,Minerals/Iron/Fa) 1 Each Tablet 1 Tab PO DAILY 30 Days Folic Acid 1 Mg Tablet 1 Mg PO DAILY 30 Days Reported Compazine (Prochlorperazine Maleate) 10 Mg Tablet 1 Tab PO Q6HRS 30 Days Melatonin 3 Mg Tab.rapdis 1 Tab PO QHS 30 Days Loperamide (Loperamide Hcl) 2 Mg Tablet 1 Tab PO Q4HRS 30 Days Lomotil Tablet (Diphenoxylate Hcl/Atropine) 1 Each Tablet 1 Tab PO TID Buspirone Hcl 5 Mg Tablet 1 Tab PO QID Vitamin C (Ascorbic Acid) 500 Mg Capsule.er 1 Cap PO DAILY 30 Days Aspirin 81 Mg Tab.chew 1 Tab PO DAILY Potassium Chloride (Potassium Chloride) 10 Meq Tab.sr.24h 10 Meq PO DAILY Namenda (Memantine Hcl) 10 Mg Tablet 10 Mg PO BID Zofran (Ondansetron Hcl) 4 Mg Tablet 1 Tab PO PRN Q6-8HRS Acetaminophen 325 Mg Tablet 325 Mg PO Q4HRS Donepezil Hcl 10 Mg Tablet 1 Tab PO DAILY Levothyroxine Sodium 50 Mcg Tablet 75 Mcg PO DAILYAC Xalatan (Latanoprost) 2.5 Ml Drops 1 Drop EACHEYE QHS Pepcid (Famotidine) 20 Mg Tablet 20 Mg PO DAILY Ativan (Lorazepam) 0.5 Mg Tablet 0.5 Mg PO Q4HRS PRN Vitals/I & O Vital Sign - Last 24 Hours 04/28/20 04/28/20 04/28/20 04/29/20 19:00 20:00 23:45 03:15 Temp 97.3 97.5 97.4 97.3 97.5 97.4 Pulse 96 95 85 Resp 18 18 18 B/P (MAP) 122/67 (85) 132/64 (86) 130/60 (83) Pulse Ox 95 96 94 O2 Delivery Nasal Cannula Nasal Cannula Nasal Cannula Nasal Cannula O2 Flow Rate 4.0 4.0 4.0 4.0 04/29/20 04/29/20 04/29/20 07:00 08:00 10:56 Temp 97.6 97.6 Pulse 94 87 Resp 18 18 B/P (MAP) 113/59 (77) 113/59 (77) Pulse Ox 95 O2 Delivery Nasal Cannula Nasal Cannula Nasal Cannula O2 Flow Rate 4.0 4.0 4.0 Intake and Output 04/28/20 04/28/20 04/29/20 15:00 23:00 07:00 Intake Total 145 ml 170 ml Output Total 100 ml Balance 45 ml 170 ml Problem List Problems Medical Problems: (1) Failure to thrive Status: Acute (2) Hypoxia Status: Acute (3) Shock Status: Acute Assessment Abd pain- with hstory of partial SBO, metastatic colon cancer, and neutropenia, await family meeting regarding disposition - hospice may be best option. Justicifation of Admission Dx: Justifications for Admission: Justification of Admission Dx: N/A MADY FRANKEL MD Apr 29, 2020 15:09
[2020-04-29 19:00] VITALS: BP 110/58
[2020-04-29] MEDS: LATANOPROST 0.005% OPHTH SOLUTION 2.5ML BOTTLE. OU SCH (21:15)
[2020-04-29 23:00] VITALS: BP 108/50
[2020-04-30] MEDS: SODIUM BICARBONATE VIAL 50 MEQ in IV 1/2 NORMAL SALINE 1,000 ML IV SCH ×2 (03:17→15:32)
[2020-04-30 03:22] VITALS: BP 95/55
[2020-04-30] MEDS: LEVOTHYROXINE 75 MCG TABLET PO SCH (05:59)
[2020-04-30 07:52] VITALS: BP 153/60
--- NOTE | 2020-04-30 07:55 | PDOC ---
PROGRESS NOTES Chief Complaint Chief Complaint A/P: SEPSIS Colon cancer - s/p surgical resection 2009, with recurrence, on chemotherapy, last dose 04/[address] Pryor at [facility] in [place], [place] Malnutrition, severe protein malnutrition Acute on chronic renal failure, vasomotor nephropathy Hypoxic respiratory failure Pancytopenia Metabolic acidosis cognitive decline, dementia Hx, chronic H/o Small-bowel obstruction secondary to a fibrous adhesion s/p small bowel segmental resection moderate fall risk macrocytic anemia FEN - renal diet PPX - thrombocytopenia Code - DNR STATUS Dipso - grave short-term prognosis, hospice referral for inpatient History of Present Illness History of Present Illness Ms Schumacher is an 84yo F w/ PMHx metastatic colon cancer under current chemotherapy, dementia, hypothyroidism, anxiety, insomnia, glaucoma, COPD, diverticulosis, hiatal hernia, incontinence, history of MSSA line infection who was admitted for 20 # weight loss, N/V, and overall not feeling well. Found to be hypotensive, tachycardic, pancytopenic. A chest x-ray showed clear lungs, but was dyspneic and hypoxic, requiring a nonrebreather. Cr 3.6 with acute kidney injury, hypernatremia and metabolic acidosis. 04/28 family is here will discuss hospice consult. Patient wishes for hospice evaluation. started iv merrem. Overnight afebrile. Family would like to stop antibiotics, nephew is DPOA. Would like hospice, starting tomorrow on discharge. 37 min pt exam cc time, chart review, > 50% of time spent with exam, chart review, pt care coordination Vitals Vitals Vital Signs Date Time Temp Pulse Resp B/P (MAP) Pulse Ox O2 Delivery O2 Flow Rate FiO2 04/30/20 03:22 97.4 84 16 95/55 (68) 100 Nasal Cannula 4.0 97.4 Physical Exam Physical Exam GENERAL: , awake, weak appearring FRAIL HEENT: Pupils equally round. Pale conjunctivae. Oral cavity dr, no lesions or thrush seen. NECK: Supple. LUNGS: Clear to auscultation. No accessory muscle use. HEART: S1, S2. ABDOMEN: Nondistended, soft, nontender with bowel sounds present. : Gu in place EXTREMITIES: No gross edema or cyanosis. SKIN: Warm to touch. No signs of rash. NEUROLOGIC: Alert, disoriented to time and situation. Port-a-cath without signs of complications General: Alert, Cooperative, moderate distress Heart: Regular rate Lungs: Clear Abdomen: Soft Extremities: No cyanosis Labs LABS Laboratory Tests Test 04/29/20 10:30 White Blood Count 0.5 x10^3/uL (4.0-11.0) Red Blood Count 2.91 x10^6/uL (3.50-5.40) Hemoglobin 10.6 g/dL (12.0-15.5) Hematocrit 30.3 % (36.0-47.0) Mean Corpuscular Volume 104 fL (79-100) Mean Corpuscular Hemoglobin 36 pg (25-35) Mean Corpuscular Hemoglobin Concent 35 g/dL (31-37) Red Cell Distribution Width 23.1 % (11.5-14.5) Platelet Count 59 x10^3/uL (140-400) Neutrophils (%) (Auto) 10 % (31-73) Lymphocytes (%) (Auto) 52 % (24-48) Monocytes (%) (Auto) 31 % (0-9) Eosinophils (%) (Auto) 6 % (0-3) Basophils (%) (Auto) 0 % (0-3) Neutrophils # (Auto) 0.1 x10^3/uL (1.8-7.7) Lymphocytes # (Auto) 0.3 x10^3/uL (1.0-4.8) Monocytes # (Auto) 0.2 x10^3/uL (0.0-1.1) Eosinophils # (Auto) 0.0 x10^3/uL (0.0-0.7) Basophils # (Auto) 0.0 x10^3/uL (0.0-0.2) Sodium Level 144 mmol/L (136-145) Potassium Level 3.1 mmol/L (3.5-5.1) Chloride Level 111 mmol/L (98-107) Carbon Dioxide Level 14 mmol/L (21-32) Anion Gap 19 (6-14) Blood Urea Nitrogen 69 mg/dL (7-20) Creatinine 2.9 mg/dL (0.6-1.0) Estimated GFR (Cockcroft-Gault) 15.4 Glucose Level 97 mg/dL (70-99) Calcium Level 7.4 mg/dL (8.5-10.1) Assessment and Plan Assessmemt and Plan Problems Medical Problems: (1) Failure to thrive Status: Acute (2) Hypoxia Status: Acute (3) Shock Status: Acute Comment Review of Relevant I have reviewed the following items lola (where applicable) has been applied. Labs Laboratory Tests Test 04/28/20 09:00 04/28/20 09:34 04/29/20 10:30 Urine Collection Type Unknown Urine Color Elissa Urine Clarity Cloudy Urine pH 5.5 (<5.0-8.0) Urine Specific [place] 1.025 (1.000-1.030) Urine Protein 100 mg/dL (NEG-TRACE) Urine Glucose (UA) Negative mg/dL (NEG) Urine Ketones (Stick) Negative mg/dL (NEG) Urine Blood Small (NEG) Urine Nitrite Negative (NEG) Urine Bilirubin Small (NEG) Urine Urobilinogen Dipstick 0.2 mg/dL (0.2 mg/dL) Urine Leukocyte Esterase Negative (NEG) Urine RBC 3-5 /HPF (0-2) Urine WBC 1-4 /HPF (0-4) Urine Squamous Epithelial Cells Few /LPF Urine Amorphous Sediment Present /HPF Urine Bacteria Few /HPF (0-FEW) Urine Hyaline Casts Many /HPF Urine Granular Casts Few /HPF Urine Mucus Slight /LPF Sodium Level 154 mmol/L (136-145) 144 mmol/L (136-145) Potassium Level 4.2 mmol/L (3.5-5.1) 3.1 mmol/L (3.5-5.1) Chloride Level 121 mmol/L (98-107) 111 mmol/L (98-107) Carbon Dioxide Level 11 mmol/L (21-32) 14 mmol/L (21-32) Anion Gap 22 (6-14) 19 (6-14) Blood Urea Nitrogen 69 mg/dL (7-20) 69 mg/dL (7-20) Creatinine 3.5 mg/dL (0.6-1.0) 2.9 mg/dL (0.6-1.0) Estimated GFR (Cockcroft-Gault) 12.4 15.4 BUN/Creatinine Ratio 20 (6-20) Glucose Level 69 mg/dL (70-99) 97 mg/dL (70-99) Lactic Acid Level 3.1 mmol/L (0.4-2.0) Calcium Level 8.1 mg/dL (8.5-10.1) 7.4 mg/dL (8.5-10.1) Total Bilirubin 0.7 mg/dL (0.2-1.0) Aspartate Amino Transf (AST/SGOT) 19 U/L (15-37) Alanine Aminotransferase (ALT/SGPT) 28 U/L (14-59) Alkaline Phosphatase 100 U/L (46-116) Troponin I Quantitative < 0.017 ng/mL (0.000-0.055) [id number]-Type Natriuretic Peptide 9675 pg/mL (0-449) Total Protein 4.9 g/dL (6.4-8.2) Albumin 2.3 g/dL (3.4-5.0) Albumin/Globulin Ratio 0.9 (1.0-1.7) White Blood Count 0.5 x10^3/uL (4.0-11.0) Red Blood Count 2.91 x10^6/uL (3.50-5.40) Hemoglobin 10.6 g/dL (12.0-15.5) Hematocrit 30.3 % (36.0-47.0) Mean Corpuscular Volume 104 fL (79-100) Mean Corpuscular Hemoglobin 36 pg (25-35) Mean Corpuscular Hemoglobin Concent 35 g/dL (31-37) Red Cell Distribution Width 23.1 % (11.5-14.5) Platelet Count 59 x10^3/uL (140-400) Neutrophils (%) (Auto) 10 % (31-73) Lymphocytes (%) (Auto) 52 % (24-48) Monocytes (%) (Auto) 31 % (0-9) Eosinophils (%) (Auto) 6 % (0-3) Basophils (%) (Auto) 0 % (0-3) Neutrophils # (Auto) 0.1 x10^3/uL (1.8-7.7) Lymphocytes # (Auto) 0.3 x10^3/uL (1.0-4.8) Monocytes # (Auto) 0.2 x10^3/uL (0.0-1.1) Eosinophils # (Auto) 0.0 x10^3/uL (0.0-0.7) Basophils # (Auto) 0.0 x10^3/uL (0.0-0.2) Laboratory Tests Test 04/29/20 10:30 White Blood Count 0.5 x10^3/uL (4.0-11.0) Red Blood Count 2.91 x10^6/uL (3.50-5.40) Hemoglobin 10.6 g/dL (12.0-15.5) Hematocrit 30.3 % (36.0-47.0) Mean Corpuscular Volume 104 fL (79-100) Mean Corpuscular Hemoglobin 36 pg (25-35) Mean Corpuscular Hemoglobin Concent 35 g/dL (31-37) Red Cell Distribution Width 23.1 % (11.5-14.5) Platelet Count 59 x10^3/uL (140-400) Neutrophils (%) (Auto) 10 % (31-73) Lymphocytes (%) (Auto) 52 % (24-48) Monocytes (%) (Auto) 31 % (0-9) Eosinophils (%) (Auto) 6 % (0-3) Basophils (%) (Auto) 0 % (0-3) Neutrophils # (Auto) 0.1 x10^3/uL (1.8-7.7) Lymphocytes # (Auto) 0.3 x10^3/uL (1.0-4.8) Monocytes # (Auto) 0.2 x10^3/uL (0.0-1.1) Eosinophils # (Auto) 0.0 x10^3/uL (0.0-0.7) Basophils # (Auto) 0.0 x10^3/uL (0.0-0.2) Sodium Level 144 mmol/L (136-145) Potassium Level 3.1 mmol/L (3.5-5.1) Chloride Level 111 mmol/L (98-107) Carbon Dioxide Level 14 mmol/L (21-32) Anion Gap 19 (6-14) Blood Urea Nitrogen 69 mg/dL (7-20) Creatinine 2.9 mg/dL (0.6-1.0) Estimated GFR (Cockcroft-Gault) 15.4 Glucose Level 97 mg/dL (70-99) Calcium Level 7.4 mg/dL (8.5-10.1) Microbiology 04/28/20 Blood Culture - Preliminary, Resulted NO GROWTH AFTER 1 DAY Medications Current Medications Sodium Chloride 1,000 ml @ 0 mls/hr 1X ONCE IV Last administered on 04/27/20at 12:38; Start 04/27/20 at 12:00; Stop 04/27/20 at 12:07; Status DC Ceftriaxone Sodium (Rocephin) 1 gm 1X ONCE IVP Last administered on 04/27/20at 12:39; Start 04/27/20 at 12:00; Stop 04/27/20 at 12:07; Status DC Fentanyl Citrate (Fentanyl 2ml Vial) 50 mcg 1X ONCE IVP Last administered on 04/27/20at 12:39; Start 04/27/20 at 12:00; Stop 04/27/20 at 12:07; Status DC Alteplase, Recombinant (Cathflo For Central Catheter Clearance) 1 mg 1X ONCE INT CAT Last administered on 04/27/20at 13:37; Start 04/27/20 at 13:15; Stop 04/27/20 at 13:16; Status DC Norepinephrine Bitartrate 8 mg/ Dextrose 258 ml @ 11.61 mls/ hr 1X ONCE IV Last administered on 04/27/20at 13:52; Start 04/27/20 at 14:00; Stop 04/28/20 at 12:13; Status DC Morphine Sulfate (Morphine Sulfate) 5 mg 1X ONCE IV Last administered on 04/27/20at 16:54; Start 04/27/20 at 16:15; Stop 04/27/20 at 16:16; Status DC Sodium Chloride 1,000 ml @ 0 mls/hr 1X ONCE IV Last administered on 04/27/20at 18:30; Start 04/27/20 at 18:00; Stop 04/27/20 at 18:01; Status DC Ondansetron HCl (Zofran) 4 mg PRN Q6HRS PRN IVP NAUSEA/VOMITING Last administered on 04/29/20at 09:18; Start 04/28/20 at 09:15 Sodium Chloride 1,000 ml @ 60 mls/hr [id number] IV ; Start 04/28/20 at 09:15; Stop 04/29/20 at 07:58; Status DC Ceftriaxone Sodium (Rocephin) 1 gm Q24H IVP ; Start 04/28/20 at 10:00; Stop 04/28/20 at 09:56; Status DC Meropenem 500 mg/ Sodium Chloride 50 ml @ 100 mls/hr Q8HRS IV ; Start 04/28/20 at 14:00; Status UNV Meropenem 1 gm/ Sodium Chloride 100 ml @ 200 mls/hr Q12HR IV Last administered on 04/28/20at 10:40; Start 04/28/20 at 10:00; Stop 04/28/20 at 11:25; Status DC Sodium Bicarbonate 50 meq/Sodium Chloride 1,050 ml @ 80 mls/hr Q13H8M IV Last administered on 04/30/20at 03:17; Start 04/28/20 at 11:00 Bumetanide (Bumex) 1 mg [id number] IV ; Start 04/28/20 at 11:15; Status UNV Meropenem 500 mg/ Sodium Chloride 50 ml @ 100 mls/hr DAILY IV Last administered on 04/29/20at 09:04; Start 04/29/20 at 09:00 Daptomycin 250 mg/ Sodium Chloride 50 ml @ 100 mls/hr Q48H IV Last administered on 04/28/20at 14:17; Start 04/28/20 at 14:00 Aspirin (Aspirin Chewable) 81 mg DAILY PO Last administered on 04/28/20at 14:17; Start 04/28/20 at 13:00 Buspirone HCl (Buspar) 5 mg QID PO Last administered on 04/29/20at 21:14; Start 04/28/20 at 13:00 Diphenoxylate HCl/ Atropine (Lomotil) 1 tab TID PO Last administered on 04/29/20at 21:15; Start 04/28/20 at 14:00 Famotidine (Pepcid) 20 mg DAILY PO Last administered on 04/28/20at 14:16; Start 04/28/20 at 13:00 Folic Acid (Folic Acid) 1 mg DAILY PO ; Start 04/28/20 at 13:00 Latanoprost (Xalatan) 1 drop QHS OU Last administered on 04/29/20at 21:15; Start 04/28/20 at 21:00 Levothyroxine Sodium (Synthroid) 75 mcg DAILY06 PO Last administered on 04/30/20at 05:59; Start 04/28/20 at 13:00 Lorazepam (Ativan) 0.5 mg Q4HRS PRN PO ANXIETY / AGITATION; Start 04/28/20 at 13:00 Multivitamins (Thera M Plus) 1 tab DAILY PO ; Start 04/28/20 at 13:00 Ascorbic Acid (Vitamin C) 500 mg DAILY PO ; Start 04/28/20 at 13:00 Non-Formulary Medication (Melatonin ) 1 tab QHS PO ; Start 04/28/20 at 21:00; Status UNV Ondansetron HCl (Zofran Odt) 4 mg PRN Q8HRS PRN PO NAUSEA/VOMITING; Start 04/28/20 at 13:00 Prochlorperazine Maleate (Compazine) 10 mg QID PO Last administered on 04/29/20at 21:14; Start 04/28/20 at 13:00 Morphine Sulfate (Roxanol Conc) 5 mg PRN Q3HRS PRN SL PAIN; Start 04/28/20 at 13:00 Potassium Chloride/Water 100 ml @ 100 mls/hr Q1H IV Last administered on 04/29/20at 12:12; Start 04/29/20 at 12:00; Stop 04/29/20 at 12:59; Status DC Active Scripts Active Thera-M Tablet (Multivits,Ca,Minerals/Iron/Fa) 1 Each Tablet 1 Tab PO DAILY 30 Days Folic Acid 1 Mg Tablet 1 Mg PO DAILY 30 Days Reported Compazine (Prochlorperazine Maleate) 10 Mg Tablet 1 Tab PO Q6HRS 30 Days Melatonin 3 Mg Tab.rapdis 1 Tab PO QHS 30 Days Loperamide (Loperamide Hcl) 2 Mg Tablet 1 Tab PO Q4HRS 30 Days Lomotil Tablet (Diphenoxylate Hcl/Atropine) 1 Each Tablet 1 Tab PO TID Buspirone Hcl 5 Mg Tablet 1 Tab PO QID Vitamin C (Ascorbic Acid) 500 Mg Capsule.er 1 Cap PO DAILY 30 Days Aspirin 81 Mg Tab.chew 1 Tab PO DAILY Potassium Chloride (Potassium Chloride) 10 Meq Tab.sr.24h 10 Meq PO DAILY Namenda (Memantine Hcl) 10 Mg Tablet 10 Mg PO BID Zofran (Ondansetron Hcl) 4 Mg Tablet 1 Tab PO PRN Q6-8HRS Acetaminophen 325 Mg Tablet 325 Mg PO Q4HRS Donepezil Hcl 10 Mg Tablet 1 Tab PO DAILY Levothyroxine Sodium 50 Mcg Tablet 75 Mcg PO DAILYAC Xalatan (Latanoprost) 2.5 Ml Drops 1 Drop EACHEYE QHS Pepcid (Famotidine) 20 Mg Tablet 20 Mg PO DAILY Ativan (Lorazepam) 0.5 Mg Tablet 0.5 Mg PO Q4HRS PRN Vitals/I & O Vital Sign - Last 24 Hours 04/29/20 04/29/20 04/29/20 04/29/20 08:00 10:56 15:00 19:00 Temp 98.0 98.0 Pulse 87 82 89 Resp 18 20 18 B/P (MAP) 113/59 (77) 94/47 (63) 110/58 (75) Pulse Ox 95 100 90 O2 Delivery Nasal Cannula Nasal Cannula Nasal Cannula Nasal Cannula O2 Flow Rate 4.0 4.0 4.0 4.0 04/29/20 04/29/20 04/30/20 20:00 23:00 03:22 Temp 98.0 97.4 98.0 97.4 Pulse 80 84 Resp 18 16 B/P (MAP) 108/50 (69) 95/55 (68) Pulse Ox 90 100 O2 Delivery Nasal Cannula Nasal Cannula Nasal Cannula O2 Flow Rate 4.0 4.0 4.0 Intake and Output 04/29/20 04/29/20 04/30/20 15:00 23:00 07:00 Intake Total 50 ml 0 ml Output Total 200 ml 200 ml Balance 50 ml -200 ml -200 ml JESSICA PICKARD MD Apr 30, 2020 07:55
[2020-04-30] MEDS: FAMOTIDINE 20 MG TABLET. PO SCH (08:16)
[2020-04-30] MEDS: PROCHLORPERAZINE 5 MG TABLET. PO SCH (08:16)
[2020-04-30] MEDS: MEROPENEM 500 MG in IV NORMAL SALINE 50ML 50 ML IV SCH (08:20)
[2020-04-30] MEDS: DIPHENOXYLATE/ATROPINE TABLET. PO SCH ×3 (08:31→21:49)
[2020-04-30] MEDS: FOLIC ACID 1 MG TABLET. PO SCH (08:31)
[2020-04-30] MEDS: ASPIRIN CHEWABLE 81 MG TABLET. PO SCH (08:31)
[2020-04-30] MEDS: busPIRone 5 MG TABLET. PO SCH (08:31)
[2020-04-30] MEDS: MULTIVITAMIN with MINERAL TABLET. PO SCH (08:32)
[2020-04-30] MEDS: ASCORBIC ACID 500 MG TABLET PO SCH (08:32)
--- NOTE | 2020-04-30 08:32 | NUR ---
C/o nausea given Compazine & Pepcid, other meds held this am,took only liquids this am
--- NOTE | 2020-04-30 09:42 | PDOC ---
Infectious Disease Note Subjective Subjective Having some runny stools c/o nausea and mild abdominal cramps No fevers/chills ROS ROS No nausea vomiting diarrhea Vital Sign Vital Signs Vital Signs Date Time Temp Pulse Resp B/P (MAP) Pulse Ox O2 Delivery O2 Flow Rate FiO2 04/30/20 07:52 98.1 70 18 153/60 (91) 94 Nasal Cannula 4.0 98.1 Physical Exam PHYSICAL EXAM GENERAL: , awake, weak appearring FRAIL HEENT: Pupils equally round. Pale conjunctivae. Oral cavity dr, no lesions or thrush seen. NECK: Supple. LUNGS: Clear to auscultation. No accessory muscle use. HEART: S1, S2. ABDOMEN: Nondistended, soft, nontender with bowel sounds present. : Gu in place EXTREMITIES: No gross edema or cyanosis. SKIN: Warm to touch. No signs of rash. NEUROLOGIC: Alert, disoriented to time and situation. Port-a-cath without signs of complications Labs Lab Laboratory Tests Test 04/29/20 10:30 White Blood Count 0.5 x10^3/uL (4.0-11.0) Red Blood Count 2.91 x10^6/uL (3.50-5.40) Hemoglobin 10.6 g/dL (12.0-15.5) Hematocrit 30.3 % (36.0-47.0) Mean Corpuscular Volume 104 fL (79-100) Mean Corpuscular Hemoglobin 36 pg (25-35) Mean Corpuscular Hemoglobin Concent 35 g/dL (31-37) Red Cell Distribution Width 23.1 % (11.5-14.5) Platelet Count 59 x10^3/uL (140-400) Neutrophils (%) (Auto) 10 % (31-73) Lymphocytes (%) (Auto) 52 % (24-48) Monocytes (%) (Auto) 31 % (0-9) Eosinophils (%) (Auto) 6 % (0-3) Basophils (%) (Auto) 0 % (0-3) Neutrophils # (Auto) 0.1 x10^3/uL (1.8-7.7) Lymphocytes # (Auto) 0.3 x10^3/uL (1.0-4.8) Monocytes # (Auto) 0.2 x10^3/uL (0.0-1.1) Eosinophils # (Auto) 0.0 x10^3/uL (0.0-0.7) Basophils # (Auto) 0.0 x10^3/uL (0.0-0.2) Sodium Level 144 mmol/L (136-145) Potassium Level 3.1 mmol/L (3.5-5.1) Chloride Level 111 mmol/L (98-107) Carbon Dioxide Level 14 mmol/L (21-32) Anion Gap 19 (6-14) Blood Urea Nitrogen 69 mg/dL (7-20) Creatinine 2.9 mg/dL (0.6-1.0) Estimated GFR (Cockcroft-Gault) 15.4 Glucose Level 97 mg/dL (70-99) Calcium Level 7.4 mg/dL (8.5-10.1) Micro Microbiology 04/28/20 Blood Culture - Preliminary, Resulted NO GROWTH AFTER 1 DAY Objective Assessment Sepsis with hypotension Neutropenia s/p chemotherapy 04/18 per family Lactic acidosis RUFINO, metabolic acidosis and hypernatremia Dyspnea, 5L Pancytopenia Metastatic colon cancer undergoing chemotherapy -Followed by Dr. Pryor at [facility] -Port-a-cath in place Dementia Hypothyroidism longterm resident Plan Plan of Care Continue dapto and meropenem, renally adjusted Monitor abx toxicities f/u BC IVFs Today's labs pending Maintain aspiration precautions Neutropenic precautions DNR Family considering hospice care D/w KATE Lindquist MD Apr 30, 2020 09:42
--- NOTE | 2020-04-30 10:36 | NUR ---
Per [facility] (DPOA [place]) would like to stop aggressive interventions and transfer back to [facility] 05/01/20, notified social work instructor
[2020-04-30 11:06] VITALS: BP 122/65
[2020-04-30 11:13] LABS: BASO % 0 % (0-3); EOS % 2 % (0-3); HEMATOCRIT 35.4 % (36.0-47.0); HEMOGLOBIN 12.2 g/dL (12.0-15.5); LYMPH # 0.7 x10^3/uL (1.0-4.8); LYMPH % 63 % (24-48); MEAN CORPUSCULAR HEMOGLOBIN 36 pg (25-35); MEAN CORPUSCULAR HGB CONC 35 g/dL (31-37); MEAN CORPUSCULAR VOLUME 104 fL (79-100); MONO # 0.2 x10^3/uL (0.0-1.1); MONO % 15 % (0-9); NEUT # 0.2 x10^3/uL (1.8-7.7); NEUT % 20 % (31-73); PLATELET COUNT 46 x10^3/uL (140-400); RED BLOOD COUNT 3.42 x10^6/uL (3.50-5.40)
[2020-04-30 11:18] LABS: WHITE BLOOD COUNT 1.1 x10^3/uL (4.0-11.0)
--- NOTE | 2020-04-30 12:13 | PDOC ---
Objective: Objective: Reviewed chart and d/w nurse - plans for Hospice. Vital Signs: Vital Signs Date Time Temp Pulse Resp B/P (MAP) Pulse Ox O2 Delivery O2 Flow Rate FiO2 04/30/20 11:06 98.1 89 18 122/65 (84) 98 Nasal Cannula 4.0 98.1 PE: no exam A/P: Metastatic colon cancer -- Plans for Hospice w/ DC soon as d/w nurse - GI will sign off, please call with questions. Justicifation of Admission Dx: Justifications for Admission: Justification of Admission Dx: N/A TIM LIRA Apr 30, 2020 12:13
--- NOTE | 2020-04-30 12:32 | PDOC ---
Renal-Progress Notes Subjective Notes Notes NONE History of Present Illness Hx of present illness NO CHANGE Vitals Vitals Vital Signs Date Time Temp Pulse Resp B/P (MAP) Pulse Ox O2 Delivery O2 Flow Rate FiO2 04/30/20 11:06 98.1 89 18 122/65 (84) 98 Nasal Cannula 4.0 98.1 Weight Weight [ ] I.O. Intake and Output Intake and Output 04/30/20 07:00 Intake Total 50 ml Output Total 400 ml Balance -350 ml Intake Oral 50 ml Output Urine Total 400 ml # Bowel Movements 3 Labs Labs Laboratory Tests Test 04/30/20 11:00 White Blood Count 1.1 x10^3/uL (4.0-11.0) Red Blood Count 3.42 x10^6/uL (3.50-5.40) Hemoglobin 12.2 g/dL (12.0-15.5) Hematocrit 35.4 % (36.0-47.0) Mean Corpuscular Volume 104 fL (79-100) Mean Corpuscular Hemoglobin 36 pg (25-35) Mean Corpuscular Hemoglobin Concent 35 g/dL (31-37) Red Cell Distribution Width 23.0 % (11.5-14.5) Platelet Count 46 x10^3/uL (140-400) Neutrophils (%) (Auto) 20 % (31-73) Lymphocytes (%) (Auto) 63 % (24-48) Monocytes (%) (Auto) 15 % (0-9) Eosinophils (%) (Auto) 2 % (0-3) Basophils (%) (Auto) 0 % (0-3) Neutrophils # (Auto) 0.2 x10^3/uL (1.8-7.7) Lymphocytes # (Auto) 0.7 x10^3/uL (1.0-4.8) Monocytes # (Auto) 0.2 x10^3/uL (0.0-1.1) Eosinophils # (Auto) 0.0 x10^3/uL (0.0-0.7) Basophils # (Auto) 0.0 x10^3/uL (0.0-0.2) Micro Micro Microbiology 04/28/20 Blood Culture - Preliminary, Resulted NO GROWTH AFTER 1 DAY Review of Systems Constitutional: yes: alert, other (CONFUSED) Physical Exam General Appearance: mild distress Skin: warm Respiratory: decreased breath sounds Heart: S1S2 Abdomen: soft Neurology: confused Assessment Assessment IMP RUFINO-NO BETTER SEPSIS NEUTROPENIA HYPOTENSION MET COLON CANCER S/P CHEMO PLAN CHART REVIEWED HOSPICE PLANS NOTED WILL SIGN OFF DANIEL AUSTIN MD Apr 30, 2020 12:32
--- NOTE | 2020-04-30 12:41 | NUR ---
COURTNEY following. Discussed with RN. 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 Family meeting with [facility] this morning at 10am. Family have decided to return to [facility] [place] and Rehab with [facility]. Plan for discharge tomorrow (05/01/2020). SW to fax updates to [facility] [place].
[2020-04-30 15:04] VITALS: BP 90/38
--- NOTE | 2020-04-30 18:16 | NUR ---
Appears comfortable, refusing oral intake, family member brought in shake earlier none consumed, up to bedside commode earlier loose non formed stool, will continue to observe
[2020-04-30 19:00] VITALS: BP 78/47
[2020-04-30] MEDS: LATANOPROST 0.005% OPHTH SOLUTION 2.5ML BOTTLE. OU SCH (21:49)
[2020-04-30 23:00] VITALS: BP 136/111
[2020-05-01 03:00] VITALS: BP 117/87
[2020-05-01] MEDS: SODIUM BICARBONATE VIAL 50 MEQ in IV 1/2 NORMAL SALINE 1,000 ML IV SCH (04:40)
[2020-05-01 05:50] LABS: BASO % 0 % (0-3); EOS % 1 % (0-3); HEMATOCRIT 34.1 % (36.0-47.0); HEMOGLOBIN 11.6 g/dL (12.0-15.5); LYMPH # 1.3 x10^3/uL (1.0-4.8); LYMPH % 57 % (24-48); MEAN CORPUSCULAR HEMOGLOBIN 36 pg (25-35); MEAN CORPUSCULAR HGB CONC 34 g/dL (31-37); MEAN CORPUSCULAR VOLUME 107 fL (79-100); MONO # 0.4 x10^3/uL (0.0-1.1); MONO % 20 % (0-9); NEUT # 0.5 x10^3/uL (1.8-7.7); NEUT % 23 % (31-73); PLATELET COUNT 39 x10^3/uL (140-400); RED BLOOD COUNT 3.18 x10^6/uL (3.50-5.40); RED CELL DISTRIBUTION WIDTH 23.6 % (11.5-14.5); WHITE BLOOD COUNT 2.3 x10^3/uL (4.0-11.0)
[2020-05-01] MEDS: LEVOTHYROXINE 75 MCG TABLET PO SCH (05:58)
[2020-05-01 07:00] VITALS: BP 77/34
[2020-05-01] MEDS: DIPHENOXYLATE/ATROPINE TABLET. PO SCH (08:41)
[2020-05-01] MEDS: FAMOTIDINE 20 MG TABLET. PO SCH (08:41)
[2020-05-01] MEDS: MULTIVITAMIN with MINERAL TABLET. PO SCH (08:41)
--- NOTE | 2020-05-01 08:57 | NUR ---
COURTNEY following. Discussed with RN. COURTNEY spoke with [facility] - they are speaking with family this morning at 0900 to confirm details of returning to [facility] [place] and [facility]hab with hospice. COURTNEY will continue to follow. Addendum: 05/01/20 at 1044 by EDA VALDEZ Family has decided to send pt back to [facility] [place] and [facility]hab with hospice. COURTNEY faxed updates to [place], transportation time arranged by Maria Elena at [place] for 1300. SW awaiting hospice eval and treat discharge orders. RN notified. COURTNEY will continue to follow.
--- NOTE | 2020-05-01 09:26 | PDOC ---
Infectious Disease Note Subjective Subjective Patient says she is okay Going to custodial as hospice Vital Sign Vital Signs Vital Signs Date Time Temp Pulse Resp B/P (MAP) Pulse Ox O2 Delivery O2 Flow Rate FiO2 05/01/20 08:00 Nasal Cannula 4.0 05/01/20 07:00 98.7 54 18 77/34 (48) 94 98.7 Physical Exam PHYSICAL EXAM GENERAL: , awake, weak appearring FRAIL HEENT: Pupils equally round. Pale conjunctivae. Oral cavity dr, no lesions or thrush seen. NECK: Supple. LUNGS: Clear to auscultation. No accessory muscle use. HEART: S1, S2. ABDOMEN: Nondistended, soft, nontender with bowel sounds present. : Gu in place EXTREMITIES: No gross edema or cyanosis. SKIN: Warm to touch. No signs of rash. NEUROLOGIC: Alert, disoriented to time and situation. Port-a-cath without signs of complications Labs Lab Laboratory Tests Test 04/30/20 11:00 05/01/20 04:30 White Blood Count 1.1 x10^3/uL (4.0-11.0) 2.3 x10^3/uL (4.0-11.0) Red Blood Count 3.42 x10^6/uL (3.50-5.40) 3.18 x10^6/uL (3.50-5.40) Hemoglobin 12.2 g/dL (12.0-15.5) 11.6 g/dL (12.0-15.5) Hematocrit 35.4 % (36.0-47.0) 34.1 % (36.0-47.0) Mean Corpuscular Volume 104 fL (79-100) 107 fL (79-100) Mean Corpuscular Hemoglobin 36 pg (25-35) 36 pg (25-35) Mean Corpuscular Hemoglobin Concent 35 g/dL (31-37) 34 g/dL (31-37) Red Cell Distribution Width 23.0 % (11.5-14.5) 23.6 % (11.5-14.5) Platelet Count 46 x10^3/uL (140-400) 39 x10^3/uL (140-400) Neutrophils (%) (Auto) 20 % (31-73) 23 % (31-73) Lymphocytes (%) (Auto) 63 % (24-48) 57 % (24-48) Monocytes (%) (Auto) 15 % (0-9) 20 % (0-9) Eosinophils (%) (Auto) 2 % (0-3) 1 % (0-3) Basophils (%) (Auto) 0 % (0-3) 0 % (0-3) Neutrophils # (Auto) 0.2 x10^3/uL (1.8-7.7) 0.5 x10^3/uL (1.8-7.7) Lymphocytes # (Auto) 0.7 x10^3/uL (1.0-4.8) 1.3 x10^3/uL (1.0-4.8) Monocytes # (Auto) 0.2 x10^3/uL (0.0-1.1) 0.4 x10^3/uL (0.0-1.1) Eosinophils # (Auto) 0.0 x10^3/uL (0.0-0.7) 0.0 x10^3/uL (0.0-0.7) Basophils # (Auto) 0.0 x10^3/uL (0.0-0.2) 0.0 x10^3/uL (0.0-0.2) Micro Microbiology 04/28/20 Blood Culture - Preliminary, Resulted NO GROWTH AFTER 1 DAY Objective Assessment Sepsis with hypotension Neutropenia s/p chemotherapy 04/18 per family Lactic acidosis RUFINO, metabolic acidosis and hypernatremia Dyspnea, 5L Pancytopenia Metastatic colon cancer undergoing chemotherapy -Followed by Dr. Pryor at [facility] in place Dementia [facility] snf resident Plan Plan of Care Monitor abx toxicities f/u BC IVFs Today's labs pending Maintain aspiration precautions Neutropenic precautions DNR Family considering hospice care D/w nursing Hospice is decided. Antibiotic can be discontinued or changed to p.o. Augmentin pending upon family preference KATE RICE MD May 01, 2020 09:26
--- NOTE | 2020-05-01 10:44 | SNU/HH DC ---
DISCHARGE ORDERS DISCHARGE INFORMATION: DISCHARGE DATE: May 01, 2020 FINAL DIAGNOSIS Problems Medical Problems: (1) Failure to thrive Status: Acute (2) Hypoxia Status: Acute (3) Shock Status: Acute CONDITION ON DISCHARGE: Stable CODE STATUS: Code Status: DNR/DNI HOSPICE: HOSPICE: Yes HOSPICE EVAL & TREAT: Yes POST DISCHARGE ORDERS: ACTIVITY ORDERS: Activity as tolerated WEIGHT BEARING STATUS: No restrictions, Non weight bearing DIET AFTER DISCHARGE: Cardiac WOUND/INCISION CARE: No wound care needed TREATMENT/EQUIPMENT ORDERS: Physical Therapy For: Evalulation/Treatment Speech Language Pathology For: Evaluation/Treatment DISCHARGE MEDICATIONS: Home Meds Active Scripts Multivits,Ca,Minerals/Iron/Fa (THERA-M TABLET) 1 Each Tablet, 1 TAB PO DAILY for supplement for 30 Days, #30 TAB Prov:MEHDI WARD MD 07/06/19 Folic Acid (FOLIC ACID) 1 Mg Tablet, 1 MG PO DAILY for supplement for 30 Days, #30 TAB Prov:MEHDI WARD MD 07/06/19 Reported Medications Prochlorperazine Maleate (Compazine) 10 Mg Tablet, 1 TAB PO Q6HRS for nausea for 30 Days, #120 TAB 0 Refills 04/27/20 Melatonin (MELATONIN) 3 Mg Tab.rapdis, 1 TAB PO QHS for sleep for 30 Days, #30 TAB 0 Refills 04/27/20 Loperamide Hcl (LOPERAMIDE) 2 Mg Tablet, 1 TAB PO Q4HRS for loose stool for 30 Days, #180 TAB 0 Refills 04/27/20 Diphenoxylate Hcl/Atropine (LOMOTIL TABLET) 1 Each Tablet, 1 TAB PO TID for diarrhea, #30 TAB 04/27/20 Buspirone Hcl (BUSPIRONE HCL) 5 Mg Tablet, 1 TAB PO QID for anxiety , #60 TAB 2 Refills 04/27/20 Ascorbic Acid (VITAMIN C) 500 Mg Capsule.er, 1 CAP PO DAILY for supplement for 30 Days, #30 CAP 0 Refills 04/27/20 Aspirin (ASPIRIN) 81 Mg Tab.chew, 1 TAB PO DAILY for inflammation, #30 TAB 3 Refills 06/20/19 Potassium Chloride (POTASSIUM CHLORIDE ) 10 Meq Tab.sr.24h, 10 MEQ PO DAILY for potassium replacement, TAB.SR 06/20/19 Memantine Hcl (NAMENDA) 10 Mg Tablet, 10 MG PO BID for dementia, TAB 04/19/19 Ondansetron Hcl (ZOFRAN) 4 Mg Tablet, 1 TAB PO PRN Q6-8HRS for nausea, #5 TAB 04/19/19 Acetaminophen (ACETAMINOPHEN) 325 Mg Tablet, 325 MG PO Q4HRS for pain, TAB 04/19/19 Donepezil Hcl (DONEPEZIL HCL) 10 Mg Tablet, 1 TAB PO DAILY for dementia, #90 TAB 1 Refill 04/19/19 Levothyroxine Sodium (LEVOTHYROXINE SODIUM) 50 Mcg Tablet, 75 MCG PO DAILYAC for thyroid , #30 TAB 0 Refills 05/22/16 Latanoprost (XALATAN) 2.5 Ml Drops, 1 DROP EACHEYE QHS, #2.5 ML 6 Refills 04/22/16 Famotidine (PEPCID) 20 Mg Tablet, 20 MG PO DAILY, TAB 04/22/16 Lorazepam (ATIVAN) 0.5 Mg Tablet, 0.5 MG PO Q4HRS PRN for ANXIETY / AGITATION, TAB 04/22/16 Discontinued Reported Medications Omeprazole (OMEPRAZOLE) 20 Mg Tablet., 1 TAB PO DAILY for gerd, #90 TAB 1 Refill 04/19/19 Buspirone Hcl (BUSPIRONE HCL) 5 Mg Tablet, 1 TAB PO QID for unknown, #60 TAB 2 Refills 04/19/19 GUNNAR GARCIA MD May 01, 2020 10:44
--- NOTE | 2020-05-01 10:51 | PDOC3 ---
Discharge Summary Visit Information Date of Admission: Apr 27, 2020 Date of Discharge: May 01, 2020 Final Diagnosis Problems Medical Problems: (1) Failure to thrive Status: Acute (2) Hypoxia Status: Acute (3) Shock Status: Acute Brief Hospital Course Allergies Allergies Coded Allergies Type Severity Reaction Last Updated Verified Iodinated Contrast Media Allergy Intermediate 04/20/19 Yes iodine Allergy Intermediate 06/23/19 Yes latex Allergy Intermediate 06/23/19 Yes Vital Signs GENERAL: No apparent distress. Alert and oriented. HEENT: Head normocephalic, atraumatic. NECK: Supple LUNGS: Clear to auscultation. HEART: RRR, S1, S2 present, pulses intact ABDOMEN: Soft, positive bowel sounds. EXTREMITIES: No cyanosis or edema. NEUROLOGIC: Normal speech, normal tone PSYCHIATRIC: Normal affect, normal mood. SKIN: No ulceration. Vital Signs Date Time Temp Pulse Resp B/P (MAP) Pulse Ox O2 Delivery O2 Flow Rate FiO2 05/01/20 08:00 Nasal Cannula 4.0 05/01/20 07:00 98.7 54 18 77/34 (48) 94 98.7 Lab Results Laboratory Tests Test 04/30/20 11:00 05/01/20 04:30 White Blood Count 1.1 x10^3/uL (4.0-11.0) 2.3 x10^3/uL (4.0-11.0) Red Blood Count 3.42 x10^6/uL (3.50-5.40) 3.18 x10^6/uL (3.50-5.40) Hemoglobin 12.2 g/dL (12.0-15.5) 11.6 g/dL (12.0-15.5) Hematocrit 35.4 % (36.0-47.0) 34.1 % (36.0-47.0) Mean Corpuscular Volume 104 fL (79-100) 107 fL (79-100) Mean Corpuscular Hemoglobin 36 pg (25-35) 36 pg (25-35) Mean Corpuscular Hemoglobin Concent 35 g/dL (31-37) 34 g/dL (31-37) Red Cell Distribution Width 23.0 % (11.5-14.5) 23.6 % (11.5-14.5) Platelet Count 46 x10^3/uL (140-400) 39 x10^3/uL (140-400) Neutrophils (%) (Auto) 20 % (31-73) 23 % (31-73) Lymphocytes (%) (Auto) 63 % (24-48) 57 % (24-48) Monocytes (%) (Auto) 15 % (0-9) 20 % (0-9) Eosinophils (%) (Auto) 2 % (0-3) 1 % (0-3) Basophils (%) (Auto) 0 % (0-3) 0 % (0-3) Neutrophils # (Auto) 0.2 x10^3/uL (1.8-7.7) 0.5 x10^3/uL (1.8-7.7) Lymphocytes # (Auto) 0.7 x10^3/uL (1.0-4.8) 1.3 x10^3/uL (1.0-4.8) Monocytes # (Auto) 0.2 x10^3/uL (0.0-1.1) 0.4 x10^3/uL (0.0-1.1) Eosinophils # (Auto) 0.0 x10^3/uL (0.0-0.7) 0.0 x10^3/uL (0.0-0.7) Basophils # (Auto) 0.0 x10^3/uL (0.0-0.2) 0.0 x10^3/uL (0.0-0.2) Laboratory Tests Test 04/30/20 11:00 05/01/20 04:30 White Blood Count 1.1 x10^3/uL (4.0-11.0) 2.3 x10^3/uL (4.0-11.0) Red Blood Count 3.42 x10^6/uL (3.50-5.40) 3.18 x10^6/uL (3.50-5.40) Hemoglobin 12.2 g/dL (12.0-15.5) 11.6 g/dL (12.0-15.5) Hematocrit 35.4 % (36.0-47.0) 34.1 % (36.0-47.0) Mean Corpuscular Volume 104 fL (79-100) 107 fL (79-100) Mean Corpuscular Hemoglobin 36 pg (25-35) 36 pg (25-35) Mean Corpuscular Hemoglobin Concent 35 g/dL (31-37) 34 g/dL (31-37) Red Cell Distribution Width 23.0 % (11.5-14.5) 23.6 % (11.5-14.5) Platelet Count 46 x10^3/uL (140-400) 39 x10^3/uL (140-400) Neutrophils (%) (Auto) 20 % (31-73) 23 % (31-73) Lymphocytes (%) (Auto) 63 % (24-48) 57 % (24-48) Monocytes (%) (Auto) 15 % (0-9) 20 % (0-9) Eosinophils (%) (Auto) 2 % (0-3) 1 % (0-3) Basophils (%) (Auto) 0 % (0-3) 0 % (0-3) Neutrophils # (Auto) 0.2 x10^3/uL (1.8-7.7) 0.5 x10^3/uL (1.8-7.7) Lymphocytes # (Auto) 0.7 x10^3/uL (1.0-4.8) 1.3 x10^3/uL (1.0-4.8) Monocytes # (Auto) 0.2 x10^3/uL (0.0-1.1) 0.4 x10^3/uL (0.0-1.1) Eosinophils # (Auto) 0.0 x10^3/uL (0.0-0.7) 0.0 x10^3/uL (0.0-0.7) Basophils # (Auto) 0.0 x10^3/uL (0.0-0.2) 0.0 x10^3/uL (0.0-0.2) Brief Hospital Course Ms Schumacher is an 84yo F w/ PMHx metastatic colon cancer under current chemotherapy, dementia, hypothyroidism, anxiety, insomnia, glaucoma, COPD, diverticulosis, hiatal hernia, incontinence, history of MSSA line infection who was admitted for 20 # weight loss, N/V, and overall not feeling well.Found to be hypotensive, tachycardic, pancytopenic. A chest x-ray showed clear lungs, but was dyspneic and hypoxic, requiring a nonrebreather. Cr 3.6 with acute kidney injury, hypernatremia and metabolic acidosis. A/P: SEPSIS Colon cancer - s/p surgical resection 2009, with recurrence, on chemotherapy, last dose 04/[address] Pryor at [facility] in [place], [place] Malnutrition, severe protein malnutrition Acute on chronic renal failure, vasomotor nephropathy Hypoxic respiratory failure Pancytopenia Metabolic acidosis cognitive decline, dementia Hx, chronic H/o Small-bowel obstruction secondary to a fibrous adhesion s/p small bowel segmental resection moderate fall risk macrocytic anemia Dipso - grave short-term prognosis,planned for hospice which family agreed. initially placed on IV abx but stopped given grim prognosis. patient discharged to home with hospice on 05/01 Discharge Information Condition at Discharge: Stable Disposition/Orders: D/C to Home w/ Hospice Scheduled Acetaminophen (Acetaminophen) 325 Mg Tablet, 325 MG PO Q4HRS for pain, (Reported) Entered as Reported by: DIANNE ISIDRO on 04/19/19 1336 Last Action: Reviewed on 04/27/201923 by Shaheed Rodriguez Ascorbic Acid (Vitamin C) 500 Mg Capsule.er, 1 CAP PO DAILY for supplement for 30 Days, #30 Ref 0 (Reported) Entered as Reported by: Shaheed Rodriguez on 04/27/201923 Last Action: Converted on 04/28/201250 by MEHDI WARD MD Aspirin (Aspirin) 81 Mg Tab.chew, 1 TAB PO DAILY for inflammation, #30 Ref 3 (Reported) Entered as Reported by: SALLIE STOVALL on 06/20/19120 Last Action: Continued on 04/28/201250 by MEHDI WARD MD Buspirone Hcl (Buspirone Hcl) 5 Mg Tablet, 1 TAB PO QID for anxiety , #60 Ref 2 (Reported) Entered as Reported by: Shaheed Rodriguez on 04/27/201923 Last Action: Continued on 04/28/201250 by MEHDI WARD MD Diphenoxylate Hcl/Atropine (Lomotil Tablet) 1 Each Tablet, 1 TAB PO TID for diarrhea, #30 (Reported) Entered as Reported by: Shaheed Rodriguez on 6/19/20 1924 Last Action: Continued on 04/28/20 125 by MEHDI WARD MD Donepezil Hcl (Donepezil Hcl) 10 Mg Tablet, 1 TAB PO DAILY for dementia, #90 Ref 1 (Reported) Entered as Reported by: DIANNE ISIDRO on 04/19/191334 Last Action: HELD on 04/28/20 125 by MEHDI WARD MD Famotidine (Pepcid) 20 Mg Tablet, 20 MG PO DAILY, (Reported) Entered as Reported by: DINORA HAIDER on 04/22/16 112 Last Action: Continued on 04/28/20 125 by MEHDI WARD MD Folic Acid (Folic Acid) 1 Mg Tablet, 1 MG PO DAILY for supplement for 30 Days, #30 Prescribed by: MEHDI WARD MD on 07/06/19 1338 Last Action: Continued on 04/28/20 125 by MEHDI WARD MD Latanoprost (Xalatan) 2.5 Ml Drops, 1 DROP EACHEYE QHS, #2.5 Ref 6 (Reported) Entered as Reported by: DINORA HAIDER on 04/22/161119 Last Action: Continued on 04/28/201250 by MEHDI WARD MD Levothyroxine Sodium (Levothyroxine Sodium) 50 Mcg Tablet, 75 MCG PO DAILYAC for thyroid , #30 Ref 0 (Reported) Entered as Reported by: NOLAN BOWLES on 05/22/16 1502 Last Action: Continued on 04/28/201250 by MEHDI WARD MD Loperamide Hcl (Loperamide) 2 Mg Tablet, 1 TAB PO Q4HRS for loose stool for 30 Days, #180 Ref 0 (Reported) Entered as Reported by: Shaheed Rodriguez on 04/27/201923 Last Action: HELD on 04/28/201250 by MEHDI WARD MD Melatonin (Melatonin) 3 Mg Tab.rapdis, 1 TAB PO QHS for sleep for 30 Days, #30 Ref 0 (Reported) Entered as Reported by: Shaheed Rodriguez on 04/27/201923 Last Action: Converted on 04/28/201250 by MEHDI WARD MD Memantine Hcl (Namenda) 10 Mg Tablet, 10 MG PO BID for dementia, (Reported) Entered as Reported by: DIANNE ISIDRO on 04/19/191337 Last Action: HELD on 04/28/201250 by MEHDI WARD MD Multivits,Ca,Minerals/Iron/Fa (Thera-M Tablet) 1 Each Tablet, 1 TAB PO DAILY for supplement for 30 Days, #30 Prescribed by: MEHDI WARD MD on 07/06/191337 Last Action: Continued on 04/28/201250 by MEHDI WARD MD Ondansetron Hcl (Zofran) 4 Mg Tablet, 1 TAB PO PRN Q6-8HRS for nausea, #5 (Reported) Entered as Reported by: DIANNE ISIDRO on 04/19/191336 Last Action: Converted on 04/28/201250 by MEHDI WARD MD Potassium Chloride (Potassium Chloride ) 10 Meq Tab.sr.24h, 10 MEQ PO DAILY for potassium replacement, (Reported) Entered as Reported by: SALLIE STOVALL on 06/20/19 012 Last Action: HELD on 04/28/201250 by MEHDI WARD MD Prochlorperazine Maleate (Compazine) 10 Mg Tablet, 1 TAB PO Q6HRS for nausea for 30 Days, #120 Ref 0 (Reported) Entered as Reported by: Shaheed Rodriguez on 04/27/201923 Last Action: Converted on 04/28/201250 by MEHDI WARD MD Scheduled PRN Lorazepam (Ativan) 0.5 Mg Tablet, 0.5 MG PO Q4HRS PRN for ANXIETY / AGITATION, (Reported) Entered as Reported by: DINORA HAIDER on 04/22/16 1112 Last Action: Continued on 04/28/201250 by MEHDI WARD MD Discontinued Medications Buspirone Hcl (Buspirone Hcl) 5 Mg Tablet, 1 TAB PO QID for unknown, #60 Ref 2 (Reported) Entered as Reported by: DIANNE ISIDRO on 04/19/191332 Last Action: Discontinued on 04/27/201923 by Shaheed Rodriguez Omeprazole (Omeprazole) 20 Mg Tablet.dr, 1 TAB PO DAILY for gerd, #90 Ref 1 (Reported) Entered as Reported by: DIANNE ISIDRO on 6/11/19 1336 Last Action: Discontinued on 04/27/201923 by Shaheed Rodriguez Justicifation of Admission Dx: Justifications for Admission: Justification of Admission Dx: N/A GUNNAR GARCIA MD May 01, 2020 10:51
[2020-05-01 11:00] VITALS: BP 58/24
[2020-05-01] MEDS ORDERED: HEPARIN PF 500 UNIT/5 ML DISP.SYRIN. IVP ONE (12:00)
--- NOTE | 2020-05-01 13:08 | NUR ---
Discharge instructions and belongings reviewed with patient, report called and given to [facility] rehab, patient is leaving on hospice.
== END 2020-05-01 13:09 | disposition hospice, inpatient (51) | DRG 871 ==
LOC: ER 10:36 → 2 SOUTH 15:02 → 4 NORTH 04-29 12:50
PROVIDERS: ADMIT Internal Medicine; ATTEND Internal Medicine
DX: A41.9 Sepsis, unspecified organism (principal); E43 Unspecified severe protein-calorie malnutrition; J96.91 Respiratory failure, unspecified with hypoxia; N17.0 Acute kidney failure with tubular necrosis; C18.9 Malignant neoplasm of colon, unspecified; C79.9 Secondary malignant neoplasm of unspecified site; E87.0 Hyperosmolality and hypernatremia; K55.9 Vascular disorder of intestine, unspecified; K56.600 Partial intestinal obstruction, unspecified as to cause; R57.9 Shock, unspecified; Z68.1 Body mass index [BMI] 19.9 or less, adult; C50.919 Malignant neoplasm of unspecified site of unspecified female breast; D53.9 Nutritional anemia, unspecified; D70.1 Agranulocytosis secondary to cancer chemotherapy; E03.9 Hypothyroidism, unspecified; F03.90 Unspecified dementia, unspecified severity, without behavioral disturbance, psychotic disturbance, mood disturbance, and anxiety; F41.9 Anxiety disorder, unspecified; G47.00 Insomnia, unspecified; H40.9 Unspecified glaucoma; I12.9 Hypertensive chronic kidney disease with stage 1 through stage 4 chronic kidney disease, or unspecified chronic kidney disease; J44.9 Chronic obstructive pulmonary disease, unspecified; K21.9 Gastro-esophageal reflux disease without esophagitis; K44.9 Diaphragmatic hernia without obstruction or gangrene; K57.90 Diverticulosis of intestine, part unspecified, without perforation or abscess without bleeding; N18.9 Chronic kidney disease, unspecified; R32 Unspecified urinary incontinence; R62.7 Adult failure to thrive; T45.1X5A Adverse effect of antineoplastic and immunosuppressive drugs, initial encounter; Z51.5 Encounter for palliative care; Z66 Do not resuscitate; Z79.82 Long term (current) use of aspirin; Z79.899 Other long term (current) drug therapy; Z85.038 Personal history of other malignant neoplasm of large intestine; Z86.19 Personal history of other infectious and parasitic diseases; Z91.81 History of falling; F32.9 Major depressive disorder, single episode, unspecified; M19.90 Unspecified osteoarthritis, unspecified site; Z88.8 Allergy status to other drugs, medicaments and biological substances; Z91.040 Latex allergy status; Z92.21 Personal history of antineoplastic chemotherapy
CPT/HCPCS: 36415; 36600; 71045; 74022; 80048; 80053; 81001; 82805; 83605; 83880; 84484; 85007; 85025; 87040; 96361; 96365; 96366; 96375; 99291; J0696; J0878; J1642; J2185; J2270; J2405; J2997; J3010; J3480; J3490; J7030; J7060; G0378; Q0164